=== PATIENT | female | born 1960 | race Caucasian/White ===

== ENCOUNTER 2024-02-22 14:24 | Outpatient (CLI) | payer OTHER, SELFPAY ==
[2024-02-22 18:47] LABS: Folic Acid 12.3 ng/mL (2.76->20)
[2024-02-24 20:43] LABS: Vitamin B6 7.7 ng/mL (2.1-21.7)
== END 2024-02-22 14:25 | disposition home or self-care (01) ==
LOC: ANHGOSHLAB 14:25
PROVIDERS: PCP Emergency Medicine; Visit Provider Nurse Practitioner Family
DX: F41.9 Anxiety disorder, unspecified (principal); R23.2 Flushing; R45.4 Irritability and anger
CPT/HCPCS: 36415; 82607; 82746; 84207

== ENCOUNTER 2024-05-13 08:22 | Outpatient (CLI) | payer OTHER, SELFPAY ==
[2024-05-13 20:47] LABS: Cholesterol 161 mg/dL (0-200); HDL Direct 49 mg/dL; Triglycerides 75 mg/dL (<150)
[2024-05-13 21:00] LABS: LDL Cholesterol Direct 79 mg/dL
--- OUTSIDE RECORDS SUMMARY | 2024-05-20 13:04 | XMS_ITS | Clinical Summary ---
Author Organization [facility] Address [address], [facility] [address] [place] [address] Phone Care Team Providers Care Security Operations Engineer Name Role Phone Micky Terry MD Primary Care Provider Adam English DO Unavailable Allergies Active Allergy Reactions Criticality Noted Date Comments Penicillins Unknown 02/06/2017 Medications venlafaxine (EFFEXOR XR) 150 MG CAPSULE SR 24 HR Take 150 mg by mouth daily. Active cetirizine (ZYRTEC ALLERGY) 10 MG Tablet Take 10 mg by mouth daily. Active Psyllium (METAMUCIL MULTIHEALTH FIBER PO) Take 4 Caps by mouth daily. Active Cholecalciferol (VITAMIN D3) 2000 UNIT Capsule Take by mouth. Active Calcium-Magnesiu m-Zinc 167-83-8 MG Tablet Take by mouth. Active Nutritional Supplements (ESTROVEN NIGHTTIME PO) Take by mouth. Active SUMAtriptan (IMITREX) 100 MG Tablet Take 100 mg by mouth daily as needed. Use as directed. May repeat dose in 2 hours if headache recurs. Active ALPRAZolam (XANAX) 0.25 MG Tablet Take 0.25 mg by mouth 3 times daily as needed. Active metroNIDAZOLE (FLAGYL) 500 MG Tablet Take 1 Tab by mouth 3 times daily. 30 Tab 9 Active Active Problems Problem Noted Date Diagnosed Date NAFLD (nonalcoholic fatty liver disease) 019 Diverticulitis 08/02/2018 Immunizations Immunization Administration Dates Next Due Covid-19, Mrna, Lnp-s, PF, 1 00 mcg/0.5 mL Dose (Moderna) 08/06/2020,07/10/2020 Family History Medical History Relation Name Comments Heart Disease Father Colon Cancer Mother Metastatic to L iver, Lungs and Brain. Hypertension Mother Relation Name Status Comments Father Mother Social History Tobacco Use Types Packs/Day Years Used Date Smoking Tobacco: Never Smokeless Tobacco: Never Alcohol Use Standard Drinks/Week Comments Yes 0 (1 standard drink = 0.6 oz pur e alcohol) Twice a year Comments Unknown Sex and Gender Information Value Date Recorded Sex Assigned at Not on file Legal Sex Female 11:40 PM CDT Gender Identity Not on file Sexual Orientation Not on file Last Filed Vital Signs Vital Sign Reading Time Taken Comments Blood Pressure 128/82 08/02/2018 4:00 PM CDT Pulse 76 08/02/2018 4:00 PM CDT Temperature 36.7 ??C (98 ??F) 08/02/2018 4:00 PM CDT Respiratory Rate 16 08/02/2018 4:00 PM CDT Oxygen Saturation 95% 08/02/2018 4:00 PM CDT Inhaled Oxygen Concentration - - Weight 126.5 kg (278 lb 12.8 oz) 08/02/2018 4:00 PM CDT Height 179.1 cm (5' 10.5 ) 08/02/2018 4:00 PM CD T Body Mass Index 39.44 08/02/2018 4:00 PM CDT Plan of Treatment Health Maintenance Due Date Last Done Comments DEXA Bone Density 1960 Hepatitis C Virus (HCV) Screening 1960 TdaP Immunization 1960 Cologuard 01/15/2008 Immunochemical Fecal Occult Blood 01/15/2008 Mammogram 01/15/2008 Pneumococcal Immunization (50+ years) (1 of 1 - PCV) 01/15/2008 Colonoscopy 10/04/2023 10/03/2018, 01/19/2017 Colorectal Cancer Screening 10/04/2023 Influenza Immunization (#1) 2024 02/21/2020 SARS-COV-2 Immunization ( season) 2024 11/06/2021, 04/16/2021, 08/06/2020, Additional history exists Respiratory Syncytial Virus (RSV) Immunization (Adult) (1 - 1-dose 75+ series) 2033 10/03/2018, 01/19/2017 Zoster Immunization Completed 12/05/2018, 9 Hepatitis B Immunization Aged Out No longer eligible based on patient's age to complete this topic Meningococcal Immunization (ACWY) Aged Out No longer eligible based on patient's age to complete this topic Rotavirus Immunization Aged Out No lo nger eligible based on patient's age to complete this topic Procedures Procedure Name Priority Date/Time Associated Diagnosis Comments COLONOSCOPY Routine 10/03/2018 from Last 3 Months or Most Recently Relevant to Health Maintenance Results * COLONOSCOPY (10/03/2018) Adam English DO PROCEDURE/MINOR SURGICAL ORDERA BLES Final Result from Last 3 Months or Most Recently Relevant to Health Maintenance Care Teams Security Operations Engineer Relationship Specialty Start Date End Date Micky Terry MD [address] [place] [address] PCP - General Family Medicine 01/19/17 Adam English DO [address] [place] [address] Consulting Physician Gastroenterology 01/19/17
--- OUTSIDE RECORDS SUMMARY | 2024-05-20 13:05 | XMS_ITS | Continuity of Care Document ---
Author Organization [facility] Address [address] [facility] [address] [place] [address] Phone Care Team Providers Care Softlines Supervisor Name Role Phone Da Lafleur MD Unavailable Unavailable Allergies, Adverse Reactions, Alerts Substance Reaction Status Criticality Penicillins Active No Information Penicillins Hives/Skin Rash Active No Informati on Medications Medication Instructions Dosage Effective Dates (start - stop) Status Comments DOXYCYCLINE HYCLATE 100 MG CAP TAKE ONE CAPSULE BY MOUTH EVERY DAY 100 MG - Active IMITREX 100 MG TABLET TAKE 1 TAB WITH FLUIDS AT ONSET OF MIGRAINE. REPEAT AFTER 2 HOURS IF NEEDED. MAX 2 TABS IN 24 HOURS - Active Diflucan 150 mg tablet take 1 tablet by oral route once then may repeat in 3 days if needed - Active Finacea 15 % topical gel apply by topical route every day a thin layer to the affected area(s) Not Available - Active Effexor XR 37.5 mg capsule,extended release take 1 capsule by oral route every day with food 37.5 MG - Active Flonase 50 mcg/actuation nasal spray,suspension spray 2 spray by intranasal route every day in each nostril - Active Bhanu 180 mg tablet take 1 tablet by oral route every day - Active metronidazole 0.75 % lotion apply by topical route 2 times every day a thin layer to the affected area(s) in the morning and evening 0.00 - Active doxycycline hyclate 100 mg capsule take 1 capsule by oral route 2 times every day 100 MG - Active Vitamin C 500 mg capsule,extended release Take 1 capsule po bid - Active Flexeril 10 mg tablet take 1 tablet by oral route 2 times every day - Active Aspirin Low Dose 81 mg tablet,delayed release take 1 tablet by oral route every day 81 MG - Active Estroven Nighttime 1,000 unit tablet - Active Metamucil 0.52 gram capsule take 4 daily - Active Vitamin D3 2,000 unit tablet - Active Procedures Procedure Date Depo Medrol 40 MG inj Office/outpatient visit,est, mod 2014 Office/outpatient visit,est, mod 2014 Oximetry Depo Medrol 80 MG inj Office/outpatient visit,est, mod 2014 Office/outpatient visit,est, mod 2014 Office/outpatient visit,est, mod 2014 Urinalysis, non-automated, w/o scope Jun Office/outpatient visit,est, mod 2013 Office/outpatient visit,est, mod 2013 Office/outpatient visit,est, mod 2013 Office/outpatient visit,est, mod 2013 Electrocardiogram, complete (ECG) Preventive checkup, est,40-64 yrs Preventive checkup, est,40-64 yrs Office/outpatient visit,est, mod 2012 Office/outpatient visit,est, mod 2012 Forms For Fmla Office/outpatient visit,est, mod 2012 Initial hospital care, moderate 013 Hospital discharge day care,30+ min Office/outpatient visit,est, mod 2012 OFFICE/OUTPATIENT VISIT, NEW Advance Directives Directive Yes / No Effective Date File Name No Information Encounters Encounter Description Practice Location Reason(s) For Visit Diagnoses Date Provider Providers Copied on Encounter [facility], [address] within [facility] [address], [place], [place], [id number], [place] tel:[phone] [facility] No Information 0 8 7 Miquel Da. [address] [facility], [address], [place], [place], [address], [place]. tel:[phone] [facility], [address] [facility] [address], [place], [place], [address], [place] tel:[phone] [facility] No Information 3 5 Miquel Roberson. [address] [facility], [address], [place], [place], [address], [place]. tel:[phone] [facility], [address] [facility], [place], [place], [address], [place] tel:[phone] [place] [address] No Information 2 4 5 No Information [facility], [address] [place] [address], [place], [place], [address], [place] tel:[phone] [place] [address] No Information 2 5- 5 Miquel Da. [address] [facility], [address], [place], [place], [address], [place]. tel:[phone] [facility], [address] [place] [address], [place], [place], [address], [place] tel:[phone] [place] [address] No Information 0-201 5 Miquel Da. [address] [facility], [address], [place], [place], [address], [place]. tel:[phone] Office/outpa tient visit,est, mod [facility], [address] [place] [address], [place], [place], [address], [place] tel:[phone] [facility] allergies (chief complaint) Allergic rhinitis, cause unspecified 5 Beba Huang. [address] [facility], [address], [place], [place], [address], [place]. tel:[phone] Referring Provider: Da Guillory, [address] [facility] [address], [place], [address] . tel:[phone] Office/outpa tient visit,[facility], [facility], [address] [facility] [address], [place], [place], [address], [place] tel:[phone] [facility] rosacea (chief complaint)anx iety (chief complaint)hea dache (chief complaint)merry k pain (chief complaint) MigraineROSA CEAGENERALIZ ED ANXIETY DISPVCs (premature ventricular contractions )BMI 38.0-38.9,AD ULT 5 Miquel Roberson. [address] [facility], [address], [place], [place], [address], [place]. tel:[phone] Referring Provider: Da Guillory, [address] [facility] Suite [facility], [place], [address] . tel:[phone] Office/outpa tient visit,[facility], [facility], [address] [facility], [place], [place], [address], [place] tel:[phone] [facility] back pain (chief complaint) Back painBMI 38.0-38.9,ad ult 5 No Information Referring Provider: Da Guillory, [address] [facility] Suite [facility], [place], [address] . tel:[phone] Office/outpa tient visit,[facility], [facility], [address] [facility] [address], [place], [place], [address], [place] tel:[phone] [facility] f/u meds (chief complaint)dep ression (chief complaint)hea dache (chief complaint)Ros acea (chief complaint) DYANA (generalized anxiety disorder)BMI 38.0-38.9,ad ultHeadache, migraineRosa cea 4 Miquel Roberson. [address] [facility], [address], [place], [place], [address], [place]. tel:[phone] Referring Provider: Da Guillory, [address] [facility] [address], [place], [address] . tel:[phone] Office/outpa tient visit,est, mod [facility], [address] [facility], [place], [place], [address], [place] tel:[phone] [facility] palpitations (chief complaint) GENERALIZED ANXIETY DISNAUSEA ALONETherape utic Drug Monitoring 4 No Information Preventive checkup, est,40-64 yrs [facility], [address] [place] [address], [place], [place], [address], [place] tel:[phone] [facility] preventive exam (chief complaint) Obesity, MorbidMenopa usal DisorderSK (seborrheic keratosis)Fa tereso history of colon cancer requiring screeningGyn ecological Examination 4 No Information Office/outpa tient visit,est, [facility], [address] [place] [address], [id number], [place] tel:[phone] [facility] 3 month f/u (chief complaint) Menopausal DisorderTher apeutic Drug MonitoringGE NERALIZED ANXIETY DISObesity, Morbid 3 No Information Office/outpa tient visit,est, mod [facility], [address] [place] [address], [place], [place], [address], [place] tel:[phone] [facility] migraine (chief complaint)men opausal disorder (chief complaint) MigrainesMen opausal disorderFami ly history of colon cancer 3 No Information [facility], [address], [place], [place], [address], [place] tel:[phone] [facility] No Information 3 No Information Office/outpa tient visit,est, mod [facility], [address], [place], [place], [address], [place] tel:[phone] [facility] F/U (chief complaint) S/P cholecystect omyReflux esophagitisD umping syndromeNaus eaTherapeuti c Drug Monitoring 3 No Information Initial hospital care, moderate [facility], [address] within [facility] [address], [place], [place], [address], [place] tel:[phone] [facility] No Information 3 No Information [facility], [address] [facility] [address], [place], [place], [address], [place] tel:[phone] No Information 3 Adolfo Pan. [address], [address], [place], [place], [address], [place]. tel:[phone] Office/outpa tient visit,est, [facility], [address] [facility] [place], [place], [address], [place] tel:[phone] [facility] Follow Up of back pain (chief complaint) OTHER BACK SYMPTOMSRout [facility] Medical ExamSCREEN [facility] erapeutic Drug Monitoring 3 No Information OFFICE/OUTPA TIENT VISIT, [facility], [address] [facility], [place], [place], [address], [place] tel:[phone] [facility] back spasms (chief complaint) Back muscle spasm 3 No Information Family History Family Member Type Diagnosis Age At Onset Mother Problem (finding) cancer of colon (Cause Of ) Mother Problem (finding) Problem (finding) Family history of Diabe chris mellitus Mother Problem (finding) osteoarthritis Mother Problem (finding) hypertension Problem (finding) Family history of strok e Problem (finding) Family history of High blood pressure Problem (finding) Family history of Heart disease Payers Payer name Insurance type Covered libertarian ID Authoriza tion(s) No Information Social History Type Description Quantity Date Captured Comments Sex Female Smoking Status No Information Chief Complaint And Reason For Visit No Information Reason For Referral Reason For Referral No Information Plan Of Treatment Date Type Action Status Referral Ordered: Referral: Gastroentergy. ordered History Of Present Illness Encounter Date Complaint History Of Prese nt Illness allergies The patient pres ents with burning in eyes, itchy ears, itchy eyes, post nasal drainage, reddened eyes, sneezing and watery eyes that began 1 Week Ago. Symptoms are constant, moderate and worsening. Symptoms are improved with allergy meds. The patient is also experiencing cough, post nasal drainage, reddened eyes, sneezing and tearing. Additional information: using bhanu /zyrtec/ benadryl. anxiety This is a follow up visit. There is improvement of initial symptoms. The patient reports functioning as not difficult at all. Additional information: Pt. is requesting refill on medication. headache The symptoms are intermittent. Additional information: Pt. is requesting for medication for migraines. back pain Additional infor mation: Pt. is requesting refill on medication for occassional back pain. back pain Onset: gradual w ith injury. The problem is worsening. Location of pain was lower back. The patient describes the pain as an ache. Context: bending forward and bending over. Symptoms are aggravated by movement. Symptoms are relieved by pain meds/drugs and alternating tylenol/aleve. Additional information: Was lifting and cleaning yesterday moving furniture and more than she usually does and felt a pull in her lower back. Lawrence a pull left to mid lower back, took a couple aleve and kept working and stiffening, ICE didn't help, tried the heating pad. depression The patient pres ents with anxious/fearful thoughts, depressed mood, diminished interest or pleasure and excessive worry but denies decreased need for sleep, fatigue or poor judgment. Interventions the patient has tried have not provided any relief. The depression is associated with weight gain. The patient denies any vomiting. 3 month f/u The symptoms beg an 3 months ago and generally lasts varies. pt is here for f/u on her hormones, states that she has been off of it for about 3 months now, states that she is doing ok, has some hot flashes sometimes still and sometimes has some anxiety but nothing else migraine Onset: 10 Years. The severity of the problem is moderate. The problem is improving. The symptoms are recurring. Locations affected include entire head. Denies aggravating factors. Denies relieving factors. Associated symptoms include blurred vision and nausea. Pertinent negatives include diplopia, dizziness, fever, hemianopsia left, hemianopsia right, loss of consciousness, memory loss, personality changes, phonophobia, photophobia, neck stiffness, vision loss left, vision loss right, visual aura, vertigo or vomiting. Additional information: Pt is here today for medication refill. Has been gradually reducing estradiol. 0.25mg nightly, doing well. Some hot flashes in the morning but has balanced out. Has some headaches. Most of the time takes Advil, but last week had a migraine relieved with Sumatriptan X 1. She only has one pill left. Migraine begins with pressure behind eyes and nose and pressure in her jaw. Wakes up with the headaches. menopausal disorder The symptoms are reported as being mild. The symptoms occur daily. She states the symptoms are well controlled. Pt has been weaning off her estradiol she is currently taking 0.25mg daily. She has been doing well, reports intermittent hot flashes in the morning but otherwise asymptomatic. Would like to figure out how to wean off medication from here. Hospital F/U The symptoms are reported as being moderate. Pt states she went to on 09/04/12 for nausea/vomitng/abdominal pain. She was dx with gall stones and inflamation. She is here today to f/u from [facility], she is doing much better with the pain, although she is till having some nausea. Follow Up of back pain Onset: 1 Month Ago. The problem is improving. It occurs persistently. Location of pain was lower back. Pain has radiated to the left thigh. The patient describes the pain as an ache, dull and sharp. Symptoms are aggravated by lying/rest and sitting. Symptoms are relieved by heat, over the counter medication: ibuprofen, physical therapy and stretching. Additional information: pt states she was here a month ago for this back pain and was referred to PT, states that she is here for a re-evaluation of her back, still going to PT twice a week and it is helping. Follow Up of back pain Onset: 1 Month Ago. The problem is improving. It occurs persistently. Location of pain was lower back. Pain has radiated to the left thigh. The patient describes the pain as an ache, dull and sharp. Symptoms are aggravated by lying/rest and sitting. Symptoms are relieved by heat, over the counter medication: ibuprofen, physical therapy and stretching. Additional information: pt states she was here a month ago for this back pain and was referred to PT, states that she is here for a re-evaluation of her back, still going to PT twice a week and it is helping. back spasms The symptoms beg an 1 day ago. Pt comes in c/o of back spasms that occured early this morning. States that this has happened in the past. Started with some lower back pain and slight muscle spasms about 2-3 weeks that is relieve with a heating pad and aleve. Today has not gotten any better. Functional Status Date Functional Assessmen t No Information Instructions Date Instruction Additional Infor mation No Information Assessments Type Assessment Date No Information Patient Care Teams Name Effective Dates (start - stop) Status Members No Information
--- OUTSIDE RECORDS SUMMARY | 2024-05-20 13:05 | XMS_ITS | Clinical Summary ---
Author Organization [facility] Address [address] [place] [address] Care Team Providers Care Motion Study Analyst Name Role Phone Odilon Chester MD Unavailable Roosevelt Thomas MD Unavailable [phone] Leticia Thorne METER SUPERVISOR Primary Care Provider [phone] Allergies Active Allergy Reactions Criticality Noted Date Comments Enoxaparin Hives,Itching,Redness,Swelling Medium 08/06 Droperidol Anxiety Low 03/26/2019 irritability Penicillins Swelling Medium 02/06/2017 Medications ALPRAZolam (XANAX) 0.25 mg tablet Take 1 tablet (0.25 mg total) by mouth 3 (three) times a day as needed for anxiety Active losartan-hydroCHLO ROthiazide (HYZAAR) 50-12.5 mg per tablet / tab am 10/15/19 21 Active SUMAtriptan (IMITREX) 100 mg tablet Active azelaic acid 15 % gel APPLY TOPICALLY TO THE AFFECTED AREA TWICE DAILY 11/19/19 23 Active budesonide-formote roL (SYMBICORT) 160-4.5 mcg/actuation inhalerIndications :Maintenance Therapy for Asthma Inhale 2 puffs 2 (two) times a day Rinse mouth with water after use. Do not swallow. 1 each 3 11/25/19 23 Active Additional Information Patient taking differently:2 puff inhalationAs needed, Rinse mouth with water after use. Do not swallow., Indications: Maintenance Therapy for Asthma, Reported on 02/28/2024 cholecalciferol (Vitamin D3) 2000 unit capsule 1 capsule (2,000 Units total) Active dicyclomine (BENTYL) 20 mg tabletIndications: Irritable Bowel Syndrome Take 1 tablet (20 mg total) by mouth 3 (three) times a day as needed (abdominal cramping and diarrhea) 90 tablet 11 08/24/19 24 025 Active ondansetron (ZOFRAN) 4 mg tablet Take 1 tablet (4 mg total) by mouth every 8 (eight) hours as needed for nausea or vomiting Active cyanocobalamin (Vitamin B-12) 1,000 mcg sublingual tablet Take 1 tablet (1,000 mcg total) by mouth daily Active tirzepatide, weight loss, (Zepbound) 2.5 mg/0.5 mL pen injectorIndication s:Metabolic dysfunction-associ ated steatohepatitis (MASH),Class 3 severe obesity with serious comorbidity and body mass index (BMI) of 40.0 to 44.9 in adult, unspecified obesity type (HCC) Inject 0.5 mL (2.5 mg total) under the skin once a week 2.5 mg once weekly for 4 weeks, then increase to 5 mg once weekly. May further increase dose in 2.5 mg/week increments every 4 weeks, if needed (maximum weekly dose: 15 mg/week) 10 mL 3 04/05/20 24 Active vitamin E (AQUASOL E) 400 unit capsuleIndications :Metabolic dysfunction-associ ated steatohepatitis (MASH) Take 2 capsules (800 Units total) by mouth daily 60 capsule 11 04/22/20 24 Active melatonin/soy/coho sh/calc carb (ESTROVEN NIGHTTIME, GREGORIO-MELTN, ORAL) 01/22/20 24 Active cholecalciferol (VITAMIN D-3) 2000 unit tablet Active meloxicam (MOBIC) 7.5 mg tablet Take 1 tablet (7.5 mg total) by mouth daily 04/29/20 24 Active omeprazole 20 mg tablet,delayed release (DR/EC) Take 1 tablet (20 mg total) by mouth daily Active omeprazole (PriLOSEC) 40 mg capsuleIndications :Gastroesophageal reflux disease, unspecified whether esophagitis present Take 1 capsule (40 mg total) by mouth 2 (two) times a day before breakfast and dinner 60 capsule 2 01/05/20 24 024 Discontin ued(Thera py completed ) Active Problems Problem Noted Date Diagnosed Date Elevated liver enzymes 03/11/2024 Assessment & Plan (03/11/2024 10:46 AM CDT): Patient with history of transaminitis dating back to 2021. Imaging findings consistent with hepatic steatosis. Serology workup was negative for other causes of chronic liver disease. I will obtain updated labs today. Due to enlarged abdominal girth, BMI 41.8, and limited visualization with ultrasound, patient to undergo MRI with elastography to evaluate degree of steatosis and fibrosis. I explained to patient that results will determine whether she should start pharmacologic therapy like a GLP-1 or rezdiffra. Referral to bonus clerk placed. We discussed the importance of weight loss, improving diet and increasing physical activity. We discussed the cause of increased hepatic fat, i.e., inadequate metabolism of fat delivered to the liver. When associated with elevated transaminases, this is metabolic dysfunction-associated steatohepatitis (MASH). This inflammation can lead to scar tissue or cirrhosis of the liver in approximately 30% of cases. Patients with cirrhosis are at risk for developing complications of portal hypertension, liver failure, , liver cancer, and/or the need for a liver transplant. Fat in the absence of elevated transaminases is non-alcoholic fatty liver disease. Routinely, this is not associated with inflammation or progressive hepatic fibrosis. The most effective treatment of fatty liver is weight loss, ideally achieved through a combination of caloric restriction and exercise. Aerobic exercise for 4 hours a week can accelerate fat metabolism and lead to improvement of liver tests. Weight loss of 5-10% of the current body weight usually leads to improvement in liver tests, liver inflammation, and a decrease in hepatic fibrosis. She will return to clinic in 1 year. Allergic rhinitis due to mold 02/28/2024 Seasonal allergic rhinitis due to pollen 024 Morbid obesity with body mass index (BMI) of 40. 0 to 49.9 12/29/2023 DON (obstructive sleep apnea) 07/03/2023 Dyspnea on exertion 06/06/2023 Gastritis without bleeding 04/27/2023 Gastric polyp 04/27/2023 Combined form of age-related cataract, both eyes 03/17/2023 Assessment & Plan (09/15/2023 9:32 AM CDT): Borderline VS OS>OD- patient is not bothered at this time. Assessment & Plan (03/17/2023 10:21 AM CDT): NVS, follow. Posterior vitreous detachment, both eyes 023 Assessment & Plan (01/31/2024 8:45 AM CDT): Worsening floaters OS then OD with a few flashes temporally OD recently. Attached 360 with good laser barricade around inferior tear OS. Gave strict return precautions- call if any new floaters, flashes, or curtain/veil over vision. Otherwise can follow with previously scheduled appointment. Assessment & Plan (09/15/2023 9:34 AM CDT): Gave strict return precautions- call if any new floaters, flashes, or curtain/veil over vision. Otherwise can follow with annual DFE. Assessment & Plan (03/17/2023 10:20 AM CDT): Exam reassuring today - PVD without holes/tears/breaks on dilated exam Return to [facility] in 6 months for DFE OU. Assessment & Plan (12/14/2022 2:16 PM CDT): Symptoms started 10/23/22. Exam reassuring today - PVD without holes/tears/breaks on INCOME AUDITOR 360 Return to [facility] 3 months for DFE OU. Assessment & Plan (11/02/2022 2:11 PM CDT): Symptoms started 10/23/22. Pt seen in ER with PVD, no holes Exam reassuring today - PVD without holes/tears/breaks Discussed natural course Return 1 month DFE OU Retinal tear of left eye 07/29/2022 Assessment & Plan (01/31/2024 8:45 AM CDT): S/p retinopexy 07/2022 Doing well. Well barricaded. Reviewed strict return precautions. Assessment & Plan (09/15/2023 9:32 AM CDT): S/p retinopexy 07/2022 Doing well. Well barricaded. Reviewed strict return precautions. Assessment & Plan (03/17/2023 10:21 AM CDT): S/p retinopexy 07/2022 Doing well. Well barricaded. Reviewed strict return precautions. Assessment & Plan (12/14/2022 2:16 PM CDT): S/p retinopexy 07/2022 Doing well. Well barricaded Assessment & Plan (11/02/2022 2:10 PM CDT): S/p retinopexy 07/2022 Doing well. Well barricaded Assessment & Plan (09/14/2022 2:32 PM CDT): 6 weeks s/p retinopexy - appears well barricaded Doing well, no new tears or detachments; tear well barricaded with laser RTC retina PRN, return to routine eyecare providers Return precautions discussed Assessment & Plan (08/03/2022 1:37 PM CDT): 1 week s/p retinopexy - appears well barricaded Doing well Return 1 month for DFE OS, sooner PRN. Return precautions discussed Assessment & Plan (07/29/2022 1:32 PM CDT): HST 5'clock left eye (OS). Discussed r/b/a of laser retinopexy and pt agrees to proceed. Tolerated procedure successfully. rtc 1 week at [facility] retina for repeat exam Assessment & Plan (07/29/2022 11:35 AM CDT): Symptoms started one day ago left eye (OS), no significant subretinal fluid (SRF). Tear at 5 o'clock left eye (OS). Educated on findings and typical treatment options. Will be seen same day with retina. Stressed importance of exam. Achilles tendinitis of left lower extremity 08/14 Diverticulitis 03/27/2019 Overview (03/27/2019): Added automatically from request for surgery [id number] NAFLD (nonalcoholic fatty liver disease) 019 Resolved Problems Problem Noted Date Diagnosed Date Resolved Date Abnormal CT scan 11/24/2022 06/06/2023 Encounters Date Type Department Care Team Description 05/02/2024 12:45 PM HOG STOMACH PREPARER Office Visit [facility] Gastroenterology [address] [facility] 2nd [address] [place] [address] Valerie Tripathi PA Gastric polyp (Primary Dx); Irritable bowel syndrome with diarrhea; Gastroesophageal reflux disease, unspecified whether esophagitis present; Hepatic steatosis 04/22/2024 8:53 AM HOG STOMACH PREPARER - 04/22/2024 11:59 PM HOG STOMACH PREPARER Hospital Encounter [facility] [address] [place] [id number] Screening mammogram, encounter for Discharge Disposition: Discharge to home or self care 04/22/2024 Telephone [facility] Gasteroenterology [address] [place] [address] Advanced Medicine 12th [place] [address] [place] [address] Betina Gage NP 04/18/2024 9:15 AM HOG STOMACH PREPARER Office Visit [facility] Orthopaedic Surgery [address] [facility] Medical Office Building [address] [place] [address] Miguel Bryson NP Achilles tendinitis of left lower extremity (Primary Dx) 04/05/2024 Telephone [facility] Gasteroenterology [address] [facility] Advanced Medicine 12th [place] [address] [place] [address] Betina Gage NP 04/03/2024 7:15 AM HOG STOMACH PREPARER - 04/03/2024 11:59 PM HOG STOMACH PREPARER Hospital Encounter [facility] [address] [place] [id number] NAFLD (nonalcoholic fatty liver disease) Discharge Disposition: Discharge to home or self care 03/25/2024 10:45 AM HOG STOMACH PREPARER Office Visit [facility] Orthopaedic Surgery [address] [place] [address] Pky Medical Office Building [address] [place] [phone] Miguel Bryson NP Left foot pain (Primary Dx); Left ankle pain, unspecified chronicity; Follow-up exam 03/25/2024 10:38 AM HOG STOMACH PREPARER - 03/25/2024 11:59 PM HOG STOMACH PREPARER Hospital Encounter [address] [phone] Left ankle pain, unspecified chronicity Discharge Disposition: Discharge to home or self care 03/25/2024 10:36 AM HOG STOMACH PREPARER - 03/25/2024 11:59 PM HOG STOMACH PREPARER Hospital Encounter [address] [phone] Left foot pain Discharge Disposition: Discharge to home or self care 03/11/2024 11:00 AM CDT Lab [facility] [address] [place] [address] NAFLD (nonalcoholic fatty liver disease); Encounter for screening for other viral diseases 03/11/2024 10:00 AM CDT Office Visit [facility] G[facility]enterology [facility] [address] [place] [address] Betina Gage NP NAFLD (nonalcoholic fatty liver disease) (Primary Dx); Encounter for screening for other viral diseases; Elevated liver enzymes 02/28/2024 8:30 AM CDT Office Visit [facility] Allergy and Immunology [facility] [address] [place] [address] Angela Merritt MD Seasonal allergic rhinitis due to pollen (Primary Dx); Dyspnea on exertion; Allergic rhinitis due to mold from Last 3 Months Immunizations Name Administration Dates Next Due COVID-19 MRNA (MODERNA) .5 M L (50 MCG) VACCINE (12 YEARS AND UP) 02/23/2023 Influenza, Quadrivalent, Rec ombinant, Egg Free, Preservative Free, Intramuscular 02/21/2020 Influenza, Quadrivalent, Spl it, Preservative Free, Intramuscular 02/18/2022 Influenza, Trivalent, Preservative Free, Intramu scular 02/08/2013 Influenza, Unspecified 02/13/2023 Pneumococcal Conjugate Pcv20 06/11/2023 RSV Vaccine, Pref, Recombina nt, Subunit, Adjuvanted, PF, IM (Arexvy) 06/16/2023 Tdap 06/11/2023 ZOSTER Recombinant 12/05/2018,09/28/2018 Surgical History Surgery Date Site/Laterality Comments COLONOSCOPY 10/03/2018 TONSILLECTOMY AND ADENOIDECTOMY 05/15/1962 - 05/14/1963 LAPAROSCOPIC OVARIAN CYSTECTOMY TONSILLECTOMY AND ADENOIDECTOMY 05/15/1961 - 05/14/1962 SINUS SURGERY 05/15/1984 - 05/14/1985 TERATOMA EXCISION 05/15/1995 - 05/14/1996 Left L SO SKIN CANCER EXCISION 05/15/1994 - 05/14/1995 Right V-Y flap R anglican for BCCa HYSTERECTOMY 05/15/1999 - 05/14/2000 TLH, R SO LESIONECTOMY 05/15/2009 - 05/14/2010 Right benign skin lesion removed from anterior chest COLECTOMY 04/18/2019 Laparoscopic sigmoid colectomy CHOLECYSTECTOMY 05/15/2012 - 05/14/2013 Medical History Medical History Date Comments Colorectal polyps Arthritis Right ankle and knee NAFLD (nonalcoholic fatty liver disease) Depression Anxiety Ovarian cyst Diverticulitis Rosacea Cholecystitis GERD (gastroesophageal reflux disease) Migraines 2001 Hypertension 2 years Family History Medical History Relation Name Comments Diverticulosis Brother Diverticulosis Father Abram Hickey Gallbladder disease Father Abram Hickey Heart attack Father Abram Hickey fatal day f ollowing [facility] Diabetes Maternal Grandmother Nancy Aparicio Folks Cancer Mother Trang Hickey. Colon Colon cancer Mother Trang Hickey. Colon Depression Mother Trang Hickey. Colon Gallbladder disease Mother Trang Hickey. Colon Hypertension Mother Trang Hickey. Colon Anesthesia problems Neg Hx Bleeding Disorder Neg Hx Clotting disorder Neg Hx Malig Hyperthermia Neg Hx Stroke Neg Hx Sudden Cardiac Neg Hx Relation Name Status Comments Brother Father Abram Hickey Maternal Grandmother Nancy Aparicio Folks Mother Trang Hickey. Colon Social History Tobacco Use Types Packs/Day Years Used Date Smoking Tobacco: Never Smokeless Tobacco: Never Tobacco Cessation:Counseling Given: Not Answered Alcohol Use Standard Drinks/Week Comments Not Currently 0 (1 standard drink = 0.6 oz pur e alcohol) AUDIT-C Answer Date Recorded Q1: How often do you have a drink containing alc ohol? Never 03/11/2024 Average Number of Drinks Not on file 024 Frequency of Binge Drinking Not on file 02/13 Personal Safety Answer Date Recorded Have you ever been in or are you currently in a harmful physical or emotional relationship or is someone making you feel afraid or unsafe? Denies 07/12/2023 Comments No Sex and Gender Information Value Date Recorded Sex Assigned at Not on file Legal Sex Female 2:22 AM HOG STOMACH PREPARER Gender Identity Female 05/18/2019 7:17 PM HOG STOMACH PREPARER Sexual Orientation Straight 05/18/2019 7: 17 PM HOG STOMACH PREPARER Obstetrics History Last Filed Vital Signs Vital Sign Reading Time Taken Comments Blood Pressure 126/84 05/02/2024 12:37 PM HOG STOMACH PREPARER Pulse 73 05/02/2024 12:37 PM HOG STOMACH PREPARER Temperature 36.8 ??C (98.3 ??F) 03/11/2024 9:59 AM CD T Respiratory Rate 20 02/28/2024 8:15 AM CDT Oxygen Saturation 99% 03/11/2024 9:59 AM CDT Inhaled Oxygen Concentration - - Weight 127 kg (280 lb) 05/02/2024 12:37 PM HOG STOMACH PREPARER Height 177.7 cm (5' 9.96 ) 05/02/2024 12:[address] Body Mass Index 40.22 05/02/2024 12:37 PM HOG STOMACH PREPARER Plan of Treatment Health Maintenance Due Date Last Done Comments Depression Screening 1960 Osteoporosis Screening-Bone Density Scan 01/27/2022 01/28/2020 Well Visit 65+ 2023 Covid-19 Vaccine (2023-06 5 season) 2024 02/23/2023, 11/06/2021, 04/16/2021, Additional history exists Influenza Vaccine (#1) 2024 , 02/18/2022, 02/21/2020, Additional history exists Fall Risk Assessment 07/12/2024 07/12/2023 Breast Cancer Screening-Mammogram 04/22/2025 04/22/2024, 04/20/2023, 04/15/2022, Additional history exists Colon Cancer Screening-Colonoscopy 01/04/2033 01/04/2023, 06/30/2010 DTaP/Tdap/Td Vaccine (2 - Td or Tdap) 06/11/2033 06/11/2023 Zoster Vaccine Completed 12/05/2018, 09/28/2018 Colon Cancer Screening-CT Colonography Discontinued 01/04/2023, 06/30/2010 Colon Cancer Screening-DNA Stool Discontinued 01/05/20, 06/30/2010 Colon Cancer Screening-FIT Discontinued 01/04/2023, Colon Cancer Screening-Sigmoidoscopy Discontinued 01/04/2023, 06/30/2010 Pneumococcal vaccine 65+ Completed 06/11/2023 Hepatitis B Screening Completed 11/27/2023 Hepatitis C Screening Completed 11/27/2023, 022 Procedures Procedure Name Priority Date/Time Associated Diagnosis Comments SCREENING MAMMOGRAM BILATERAL W LALO Schedule Routine, Read Routine (OP Routine) 04/22/2024 9:16 AM HOG STOMACH PREPARER Screening mammogram, encounter for MRI ABDOMEN W WO CONTRAST WITH MR ELASTOGRAPHY (C) Schedule Routine, Read Routine (OP Routine) 04/03/2024 8:41 AM HOG STOMACH PREPARER NAFLD (nonalcoholic fatty liver disease) XR FOOT LEFT 3 OR MORE VIEWS Schedule Routine, Read Routine (OP Routine) 03/25/2024 10:47 AM HOG STOMACH PREPARER Left foot pain XR ANKLE LEFT 3 OR MORE VIEWS Schedule Routine, Read Routine (OP Routine) 03/25/2024 10:46 AM HOG STOMACH PREPARER Left ankle pain, unspecified chronicity EGFR Routine 03/11/2024 11:02 AM CDT NAFLD (nonalcoholic fatty liver disease) DIFFERENTIAL AUTO Routine 03/11/2024 11: 02 AM CDT NAFLD (nonalcoholic fatty liver disease) COMPREHENSIVE METABOLIC PANEL Routine 03/11/2024 11:02 AM CDT NAFLD (nonalcoholic fatty liver disease) PROTIME-INR Routine 03/11/2024 11:02 AM CDT NAFLD (nonalcoholic fatty liver disease) CBC WITH AUTO DIFFERENTIAL Routine 03/11/2024 11:02 AM CDT NAFLD (nonalcoholic fatty liver disease) HEPATITIS A ANTIBODY, TOTAL Routine 03/11/2024 11:02 AM CDT NAFLD (nonalcoholic fatty liver disease) HEPATITIS B SURFACE ANTIBODY (IMMUNE STATUS) Routine 03/11/2024 11:02 AM CDT NAFLD (nonalcoholic fatty liver disease) Encounter for screening for other viral diseases SCAN - LABS 02/28/2024 HEPATITIS PANEL, ACUTE Routine 11/27/2023 8:39 AM CDT Elevated LFTs Hepatic steatosis COLONOSCOPY 01/04/2023 12:55 PM CDT DEXA AXIAL SKELETON BONE DENSITY 1 OR MORE SITES Schedule Routine, Read Routine (OP Routine) 01/28/2020 8:48 AM CDT Encounter for screening for osteoporosis from Last 3 Months or Most Recently Relevant to Health Maintenance Results * Screening Mammogram Bilateral W Lalo (04/22/2024 9:16 AM HOG STOMACH PREPARER) Anatomical Region Laterality Modality Breast Bilateral Mammography Narrative 04/22/2024 4:59 PM HOG STOMACH PREPARER Mammogram Technique: Bilateral Digital Breast Tomosynthesis, Bilateral C-view 2D Screening mammogram. ??Views obtained: ??bilateral craniocaudal and bilateral mediolateral oblique. ??Computer Aided Detection was performed. Mammogram Findings: The present examination has been compared to prior imaging studies performed at [facility] on 04/15/2022, 04/20/2023 and 05/05/2023. There are scattered areas of fibroglandular density. There is no suspicious abnormality in either breast. Impression: There is no mammographic evidence of malignancy. Clinical follow-up for diffuse bilateral breast pain is recommended. Annual screening mammography is recommended. OVERALL FINAL ASSESSMENT: BI-RADS CATEGORY 1: ??Negative. Procedure Note Gael Burr MD - 04/22/2024 Mammogram Technique: Bilateral Digital Breast Tomosynthesis, Bilateral C-view 2D Screening mammogram. Views obtained: bilateral craniocaudal and bilateral mediolateral oblique. Computer Aided Detection was performed. Mammogram Findings: The present examination has been compared to prior imaging studies performed at [facility] on 04/15/2022, 04/20/2023 and 05/05/2023. There are scattered areas of fibroglandular density. There is no suspicious abnormality in either breast. Impression: There is no mammographic evidence of malignancy. Clinical follow-up for diffuse bilateral breast pain is recommended. Annual screening mammography is recommended. OVERALL FINAL ASSESSMENT: BI-RADS CATEGORY 1: Negative. us Self Screening Mammogram IMG MAMMO PROCEDURES Fi nal Result * MRI Abdomen W WO Contrast With MR Elastography (C) (04/03/2024 8:41 AM HOG STOMACH PREPARER) Anatomical Region Laterality Modality Body N/A Magnetic Resonan ce 04/03/2024 10:5 9 AM HOG STOMACH PREPARER Impressions 04/03/2024 11:59 AM HOG STOMACH PREPARER 1. Mild hepatic steatosis. 2. Mean liver stiffness of 3.4 kilopascals (kPa). 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 The radiology attending physician has personally reviewed this study, and had reviewed and/or edited this written report and agrees with it. Electronically signed by: Darwin Salazar M.D. Narrative 04/03/2024 11:59 AM HOG STOMACH PREPARER EXAMINATION: 1. MAGNETIC RESONANCE IMAGING OF THE ABDOMEN WITH AND WITHOUT CONTRAST 2. MR LIVER ELASTOGRAPHY HISTORY: Hepatic steatosis TECHNIQUE: Magnetic resonance imaging of the abdomen was performed prior to and following the uneventful administration of intravenous Gadolinium contrast. MR elastography was performed using the Aniboom system. Protocol: Routine liver with elastography Contrast: gadoterate 20 mL COMPARISON: Right upper quadrant ultrasound 09/08/2023 FINDINGS: Liver: No surface nodularity. - Iron quantification: 1.6 mg iron / g liver - Fat fraction: 14% - Elastography: MR elastography was performed which demonstrated a mean liver stiffness of 3.4 kilopascals (kPa). This is consistent with stage 1-2 fibrosis (2.9-3.5 kPa) MR elastography estimates of hepatic stiffness (at 60 Hz) correlate with hepatic fibrosis stages as: < 2.5 kPa: Normal 2.5 - 2.9 kPa: Normal or inflammation 2.9 - 3.5 kPa: Stage 1 to 2 fibrosis 3.5 - 4 kPa: Stage 2-3 fibrosis 4 ??- 5 kPa: Stage 3-4 fibrosis > 5 kPa: Stage 4 fibrosis or cirrhosis These are broad categories and results should be interpreted with clinical and laboratory findings for other possible causes of increased liver stiffness. (Rosendo S, Silvestre R. Magnetic resonance elastography of the liver. Magn Reson Imaging Clin N Am 2014; 22: 433-46). - Bile ducts: Mild extrahepatic biliary ductal dilatation, favored represent reservoir effect post cholecystectomy. - Focal liver lesions: No suspicious focal hepatic lesion. Focus of increased signal on T2 and diffusion weighting imaging appears to represent wrap artifact marker on patient skin. - Vasculature: Replaced left hepatic artery arising from the left gastric. Patent portal and hepatic veins. Gallbladder: Surgically absent Pancreas: Normal Spleen: Normal Adrenals: Normal Kidneys: Left upper pole renal cyst. No hydronephrosis. Other Findings: Imaged lung bases are clear. No abdominal lymphadenopathy. No suspicious osseous lesion. Procedure Note Darwin Salazar MD - 04/03/2024 EXAMINATION: 1. MAGNETIC RESONANCE IMAGING OF THE ABDOMEN WITH AND WITHOUT CONTRAST 2. MR LIVER ELASTOGRAPHY HISTORY: Hepatic steatosis TECHNIQUE: Magnetic resonance imaging of the abdomen was performed prior to and following the uneventful administration of intravenous Gadolinium contrast. MR elastography was performed using the Aniboom system. Protocol: Routine liver with elastography Contrast: gadoterate 20 mL COMPARISON: Right upper quadrant ultrasound 09/08/2023 FINDINGS: Liver: No surface nodularity. - Iron quantification: 1.6 mg iron / g liver - Fat fraction: 14% - Elastography: MR elastography was performed which demonstrated a mean liver stiffness of 3.4 kilopascals (kPa). This is consistent with stage 1-2 fibrosis (2.9-3.5 kPa) MR elastography estimates of hepatic stiffness (at 60 Hz) correlate with hepatic fibrosis stages as: < 2.5 kPa: Normal 2.5 - 2.9 kPa: Normal or inflammation 2.9 - 3.5 kPa: Stage 1 to 2 fibrosis 3.5 - 4 kPa: Stage 2-3 fibrosis 4 - 5 kPa: Stage 3-4 fibrosis > 5 kPa: Stage 4 fibrosis or cirrhosis These are broad categories and results should be interpreted with clinical and laboratory findings for other possible causes of increased liver stiffness. (Rosendo S, Silvestre R. Magnetic resonance elastography of the liver. Magn Reson Imaging Clin N Am 2014; 22: 433-46). - Bile ducts: Mild extrahepatic biliary ductal dilatation, favored represent reservoir effect post cholecystectomy. - Focal liver lesions: No suspicious focal hepatic lesion. Focus of increased signal on T2 and diffusion weighting imaging appears to represent wrap artifact marker on patient skin. - Vasculature: Replaced left hepatic artery arising from the left gastric. Patent portal and hepatic veins. Gallbladder: Surgically absent Pancreas: Normal Spleen: Normal Adrenals: Normal Kidneys: Left upper pole renal cyst. No hydronephrosis. Other Findings: Imaged lung bases are clear. No abdominal lymphadenopathy. No suspicious osseous lesion. IMPRESSION: 1. Mild hepatic steatosis. 2. Mean liver stiffness of 3.4 kilopascals (kPa). 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 The radiology attending physician has personally reviewed this study, and had reviewed and/or edited this written report and agrees with it. Electronically signed by: Darwin Salazar M.D. Betina Gage NP IM MRI PROCEDURES Final Result * XR Foot Left 3 or More Views (03/25/2024 10:47 AM HOG STOMACH PREPARER) Anatomical Region Laterality Modality Lower Extremities, Foot Left Digital Radiography 03/25/2024 11:5 7 AM HOG STOMACH PREPARER Impressions 03/25/2024 11:57 AM HOG STOMACH PREPARER There are extensive enthesopathic changes along the insertional Achilles likely related to severe chronic Achilles tendinopathy. ??Ankle mortise is preserved. ??Ossification inferior to the medial malleolus is probably sequela of prior injury. ??There is increased soft tissue around the ankle similar to before possibly related to body habitus. ??There is a moderate-sized plantar calcaneal spur and mild osteoarthritis of the midfoot. ??No acute fracture of the ankle or foot. ??Subtle lucency 6.5mm along the far medial aspect of the talar dome could be related to the patient's osteochondral defect. Mild osteoarthritis of the 1st metatarsophalangeal joint. ??Lucency through the 2nd metatarsal head may represent posttreatment change or surgical change. ??Correlate clinically. ??Follow up. Electronically signed by: Bina Bird M.D. Narrative 03/25/2024 11:57 AM HOG STOMACH PREPARER EXAMINATION: 1. ??3 VIEWS OF THE LEFT FOOT 2. ??3 VIEWS OF THE LEFT ANKLE DATE: 03/25/2024 11:15 AM COMPARISON: 09/21/2023 and priors dating back to 05/05/2021 HISTORY: left ankle pain - WB chronic pain Procedure Note Bina Bird MD - 03/25/2024 EXAMINATION: 1. 3 VIEWS OF THE LEFT FOOT 2. 3 VIEWS OF THE LEFT ANKLE DATE: 03/25/2024 11:15 AM COMPARISON: 09/21/2023 and priors dating back to 05/05/2021 HISTORY: left ankle pain - WB chronic pain IMPRESSION: There are extensive enthesopathic changes along the insertional Achilles likely related to severe chronic Achilles tendinopathy. Ankle mortise is preserved. Ossification inferior to the medial malleolus is probably sequela of prior injury. There is increased soft tissue around the ankle similar to before possibly related to body habitus. There is a moderate-sized plantar calcaneal spur and mild osteoarthritis of the midfoot. No acute fracture of the ankle or foot. Subtle lucency 6.5mm along the far medial aspect of the talar dome could be related to the patient's osteochondral defect. Mild osteoarthritis of the 1st metatarsophalangeal joint. Lucency through the 2nd metatarsal head may represent posttreatment change or surgical change. Correlate clinically. Follow up. Electronically signed by: Bina Bird M.D. us Miguel Bryson METER SUPERVISOR IMG XR PROCEDURES Final Re sult * XR Ankle Left 3 or More Views (03/25/2024 10:46 AM HOG STOMACH PREPARER) Anatomical Region Laterality Modality Lower Extremities, Ankle Left Digital Radiography 03/25/2024 11:5 7 AM HOG STOMACH PREPARER Impressions 03/25/2024 11:57 AM HOG STOMACH PREPARER There are extensive enthesopathic changes along the insertional Achilles likely related to severe chronic Achilles tendinopathy. ??Ankle mortise is preserved. ??Ossification inferior to the medial malleolus is probably sequela of prior injury. ??There is increased soft tissue around the ankle similar to before possibly related to body habitus. ??There is a moderate-sized plantar calcaneal spur and mild osteoarthritis of the midfoot. ??No acute fracture of the ankle or foot. ??Subtle lucency 6.5mm along the far medial aspect of the talar dome could be related to the patient's osteochondral defect. Mild osteoarthritis of the 1st metatarsophalangeal joint. ??Lucency through the 2nd metatarsal head may represent posttreatment change or surgical change. ??Correlate clinically. ??Follow up. Electronically signed by: Bina Bird M.D. Narrative 03/25/2024 11:57 AM HOG STOMACH PREPARER EXAMINATION: 1. ??3 VIEWS OF THE LEFT FOOT 2. ??3 VIEWS OF THE LEFT ANKLE DATE: 03/25/2024 11:15 AM COMPARISON: 09/21/2023 and priors dating back to 05/05/2021 HISTORY: left ankle pain - WB chronic pain Procedure Note Bina Bird MD - 03/25/2024 EXAMINATION: 1. 3 VIEWS OF THE LEFT FOOT 2. 3 VIEWS OF THE LEFT ANKLE DATE: 03/25/2024 11:15 AM COMPARISON: 09/21/2023 and priors dating back to 05/05/2021 HISTORY: left ankle pain - WB chronic pain IMPRESSION: There are extensive enthesopathic changes along the insertional Achilles likely related to severe chronic Achilles tendinopathy. Ankle mortise is preserved. Ossification inferior to the medial malleolus is probably sequela of prior injury. There is increased soft tissue around the ankle similar to before possibly related to body habitus. There is a moderate-sized plantar calcaneal spur and mild osteoarthritis of the midfoot. No acute fracture of the ankle or foot. Subtle lucency 6.5mm along the far medial aspect of the talar dome could be related to the patient's osteochondral defect. Mild osteoarthritis of the 1st metatarsophalangeal joint. Lucency through the 2nd metatarsal head may represent posttreatment change or surgical change. Correlate clinically. Follow up. Electronically signed by: Bina Bird M.D. us Miguel Bryson METER SUPERVISOR IMG XR PROCEDURES Final Re sult * eGFR (03/11/2024 11:02 AM CDT) eGFR 81 >=60 mL/min/1. 73 m2 Comment: Interpretive Data Reference Interval Normal ?>/= 90 mL/min/1.73m2 Mildly decreased* ? 60 - 89 mL/min/1.73m2 Mildly to moderately decreased ?45 - 59 mL/min/1.73m2 Moderately to severely decreased ??30 - 44 mL/min/1.73m2 Severely decreased ?15 - 29 mL/min/1.73m2 Kidney Failure ?< 15 ??mL/min/1.73m2 *Relative to young adult level Estimated glomerular filtration rate is determined by the 2020 CKD-EPI equation recommended by the National Kidney Foundation (A Unifying Approach to GFR Estimation: Recommendations of the NKF-ASK Task Force on Reassessing the Inclusion of Race in Diagnosing Kidney Disease, JASN 2020). The CKD-EPI equation should not be used for patients with unstable renal function and has not been validated in children and those over 70. Current interpretive data was last reviewed 2021. Blood 03/11/2024 11:0 2 AM CDT 03/11/2024 11:20 AM CDT Betina Gage NP LAB BLOOD ORDERABLES Fin al Result BRITTANY BOYLE [address] [facility]. [place] [address] * Differential, auto (03/11/2024 11:02 AM CDT) Neutrophil abs 2.9 1.5 - 6.5 K/cumm Imm gran abs 0.0 0.0 - 0.1 K/cumm [facility] Lymphocyte abs 2.8 0.8 - 3.3 K/cumm [facility] Monocyte abs 0.5 0.2 - 0.8 K/cumm [facility] Eosinophil abs 0.1 0.0 - 0.5 K/cumm [facility] Basophil abs 0.1 0.0 - 0.1 K/cumm [facility] Neutrophil pct 45.4 % [facility] Comment: Interpretive Data Percent cell count reference ranges are not reported, since discordance with absolute values may lead to misinterpretation of CBC data. Current Interpretive Data was last revised on 2017. Imm gran pct 0.3 % [facility] Comment: Interpretive Data Percent cell count reference ranges are not reported, since discordance with absolute values may lead to misinterpretation of CBC data. Current Interpretive Data was last revised on 2017. Lymphocyte pct 44.0 % [facility] Comment: Interpretive Data Percent cell count reference ranges are not reported, since discordance with absolute values may lead to misinterpretation of CBC data. Current Interpretive Data was last revised on 2017. Monocyte pct 7.7 % [facility] Comment: Interpretive Data Percent cell count reference ranges are not reported, since discordance with absolute values may lead to misinterpretation of CBC data. Current Interpretive Data was last revised on 2017. Eosinophil pct 1.8 % [facility] Comment: Interpretive Data Percent cell count reference ranges are not reported, since discordance with absolute values may lead to misinterpretation of CBC data. Current Interpretive Data was last revised on 2017. Basophil pct 0.8 % [facility] Comment: Interpretive Data Percent cell count reference ranges are not reported, since discordance with absolute values may lead to misinterpretation of CBC data. Current Interpretive Data was last revised on 2017. Blood 03/11/2024 11:0 2 AM CDT 03/11/2024 11:20 AM CDT Betina Gage NP LAB BLOOD ORDERABLES Fin al Result Performing Organization Address City/[facility]/ZIP Co de Phone Number BRITTANY FARRIS [address] [address] [facility] [place] [address] * CBC with auto differential (03/11/2024 11:02 AM CDT) WBC 6.3 3.8 - 9.9 K/cumm Hgb 14.1 11.9 - 15.5 g/dL [facility] W Hct 41.1 35.6 - 45.5 % [facility] WCH Plt 259 150 - 400 K/cumm [facility] MPV 10.7 9.1 - 12.3 fL [facility] RBC 4.54 3.90 - 5.20 M/cumm [facility] MCV 90.5 81.3 - 96.4 fL [facility] MCH 31.1 27.1 - 33.3 pg [facility] WCH MCHC 34.3 32.3 - 35.7 g/dL [facility] BJWCH RDW CV 13.4 11.1 - 14.9 % [facility] RDW SD 43.8 35.7 - 48.1 fL [facility] NRBC abs 0.00 0.00 - 0.01 K/cumm [facility] Blood 03/11/2024 11:0 2 AM CDT 03/11/2024 11:20 AM CDT Betina Gage METER SUPERVISOR LAB BLOOD ORDERABLES Fin al Result Performing Organization Address [facility]/ZIP Co de Phone Number BRITTANY FARRIS [address] [facility] [employer] [place], [place] [id number] * Hepatitis A antibody, total Blood (03/11/2024 11:02 AM CDT) [facility] Hep A total Nonreactive Nonreactive Comment:Testing performed by : [facility], [address] [place]., [address] Blood 03/11/2024 11:0 2 AM CDT 03/11/2024 1:16 PM CDT Betina Gage NP LAB MICROBIOLOGY - GENER AL ORDERABLES Final Result Performing Organization Address [facility] Co de Phone Number BR[facility]ANY [facility] [address] [facility] [email or web address] [place], [place] [phone] * Hepatitis B surface antibody (immune status) Blood (03/11/2024 11:02 AM CDT) [facility] HBsAb (immune status) Reactive Comment: This result is consistent with immunity to Hepatitis B Virus when used in the setting of routine screening. Current interpretive data was last revised on 22 Testing performed by: [facility], [address] [place]., [address] HBsAb (immune status) index 15.0 mIUnits/m L BRITTANY FARRIS Comment:Testing performed by : [facility], [address] [place]., [address] Blood 03/11/2024 11:0 2 AM CDT 03/11/2024 1:16 PM CDT Betina Gage NP LAB MICROBIOLOGY - GENER AL ORDERABLES Final Result Performing Organization Address [facility] Co de Phone Number [facility] [address] [address] [facility] [employer] [place], [place] [id number] * Protime-INR (03/11/2024 11:02 AM CDT) [facility] PT 11.4 9.7 - 13.0 sec INR 1.05 0.90 - 1.20 BRITTANY FARRIS Comment: Interpretive data Oral anticoagulant therapeutic ranges: Venous thromboembolism prophylaxis or treatment: 2.0-3.0 CARDIOLOGY Standard range: 2.0-3.0 High-intensity range: 2.5-3.5 Refer to indication-specific guidelines for appropriate target ranges for prosthetic heart valve replacement. Current interpretive data was last revised on 2019. Blood 03/11/2024 11:0 2 AM CDT 03/11/2024 11:20 AM CDT Betina Gage NP LAB BLOOD ORDERABLES [facility] al Result [facility] [address] [facility]. [place] [address] * (ABNORMAL) Comprehensive metabolic panel (03/11/2024 11:02 AM CDT) Sodium 139 135 - 145 mmol/L Potassium, pl 4.0 3.3 - 4.9 mmol/L [facility] Chloride 102 97 - 110 mmol/L [facility] CO2 27 22 - 32 mmol/L [facility] Anion gap 10 2 - 15 mmol/L [facility] BUN 17 6 - 25 mg/dL [facility] Creatinine 0.80 0.60 - 1.10 mg/dL [facility] Glucose 111 70 - 199 mg/dL [facility] Comment: Interpretive Data Fasting glucose >/= 126 mg/dl is diagnostic for diabetes. ?? Fasting is defined as no caloric intake for at least 8 hours. Fasting glucose between 100 mg/dl to 125 mg/dl is diagnostic of prediabetes. In a patient with classic symptoms of hyperglycemia or hyperglycemic crisis, a random glucose >/= 200 mg/dl is diagnostic for diabetes. In the absence of unequivocal hyperglycemia, results should be confirmed by repeat testing. The classification and Diagnosis of Diabetes Diabetes Care 2022; 46: S19-S40. Current interpretive data was last revised 2022. Calcium 9.7 8.5 - 10.3 mg/dL [facility] Bilirubin, total 0.4 0.1 - 1.2 mg/dL [facility] Protein, pl 7.4 6.5 - 8.5 g/dL [facility] Albumin 4.3 3.5 - 5.0 g/dL [facility] Alk phos 50 40 - 130 Units/L [facility] ALT 68(H) 7 - 45 Units/L [facility] AST 59(H) 10 - 45 Units/L [facility] Blood 03/11/2024 11:0 2 AM CDT 03/11/2024 11:20 AM CDT Betina Gage METER SUPERVISOR LAB BLOOD ORDERABLES Fin al Result BRITTANY BOYLE [address] [facility] [address] * SCAN - LABS (02/28/2024) Provider Scanning Edited Result - Final * Hepatitis panel, acute Blood (11/27/2023 8:39 AM CDT) Hep A IgM Nonreactive Nonreactive Comment: Interpretive Data: If Hep A IgM Ab is reported as Equivocal, a new sample should be drawn in two weeks for testing. Current interpretive data was last revised on 19. Hep B core IgM Nonreactive Nonreactive [facility] Comment: Interpretive Data If HepB Core IgM Ab is reported as Equivocal, a new sample should be drawn in two weeks for testing. Current interpretive data was last revised on 19. Hep C Ab Nonreactive Nonreactive [facility] Comment: Interpretive Data Nonreactive: Antibodies to HCV not detected. Does NOT exclude the possibility of recent exposure to HCV. Equivocal: Equivocal for HCV antibodies. Supplemental molecular testing will be automatically performed to determine infection status in accordance with current CDC screening recommendations. ?? Reactive: Positive for HCV antibodies. ??This may represent current or past HCV infection. Supplemental molecular testing will be automatically performed to determine ??current infection status in accordance with current CDC screening recommendations. Interpretive data was last revised on 2019. HepBsAg Nonreactive Nonreactive [facility] Blood 11/27/2023 8:39 AM CDT 11/27/2023 2:38 PM CDT us Cathi GERONIMO LAB MICROBIOLOGY - GENE RAL ORDERABLES Final Result BRITTANY RIVERA [address] [place] [address] * COLONOSCOPY (01/04/2023 12:55 PM CDT) Anatomical Region Laterality Modality Other Narrative Procedure Note Odilon Chester MD - 01/04/2023 12:55 PM CDT ENDOSCOPY LAB Patient Name: Josy Fiore Procedure Date: 01/04/2023 12:55 PM Date of : 1960 Admit Type: Outpatient Age: 62 Gender: Female Attending MD: Odilon Chester M.D. Room: [facility] ENDOSCOPY ROOM 03 Note Status: Finalized Procedure: Colonoscopy Indications: Screening for colorectal malignant neoplasm, Last colonoscopy: 2019 Providers: Odilon Chester M.D. Referring MD: Bj Montaño M.D. Medicines: Monitored Anesthesia Care Complications: No immediate complications. Estimated Blood Loss: Estimated blood loss was minimal. Procedure: Pre-Anesthesia Assessment: - Prior to the procedure, a History and Physicalwas performed, and patient medications, allergies and sensitivities were reviewed. The patient'stolerance of previous anesthesia was reviewed. - The risks and benefits of the procedure and the sedation options and risks were discussed with the patient. All questions were answered and informed consent was obtained. - Immediately prior to administration ofmedications, the patient was re-assessed for adequacy to receive sedatives. The benefits, risks and alternatives of theprocedure and sedation were discussed and informed consentwas obtained. All questions were answered. Please referto the signed informed consent document in the medical record. The scope was passed under direct vision.The [id number] was introduced through the anusand advanced to the terminal ileum. The colonoscopy was performed without difficulty. The patient tolerated the procedure well. The quality of the bowel preparation was evaluated using the BBPS (BostonBowel Preparation Scale) with scores of: Right Colon = 3, Transverse Colon = 3 and Left Colon = 3 (entiremucosa seen well with no residual staining, smallfragments of stool or opaque liquid). The total BBPS score equals 9. Findings: The terminal ileum appeared normal. Two sessile polyps were found in the ascending colon. The polyps were6 to 8 mm in size. These polyps were removed with a cold snare.Resection and retrieval were complete. A 4 mm polyp was found in the transverse colon. The polyp wassessile. The polyp was removed with a cold snare. Resection and retrieval were complete. Two sessile polyps were found in the descending colon. The polypswere 5 to 6 mm in size. These polyps were removed with a cold snare.Resection and retrieval were complete. A few diverticula were found in the descending colon. There was evidence of a prior end-to-end colo-rectal anastomosis inthe recto-sigmoid colon. This was patent and was characterized by healthy appearing mucosa. External and internal hemorrhoids were found. The hemorrhoids weresmall. Impression: - The examined portion of the ileum was normal. - Two 6 to 8 mm polyps in the ascending colon,removed with a cold snare. Resected and retrieved. - One 4 mm polyp in the transverse colon, removedwith a cold snare. Resected and retrieved. - Two 5 to 6 mm polyps in the descending colon, removed with a cold snare. Resected andretrieved. - Diverticulosis in the descending colon. - Patent end-to-end colo-rectal anastomosis, characterized by healthy appearing mucosa. - External and internal hemorrhoids. Recommendation: - Await pathology results. - Repeat colonoscopy in 3 years for surveillance. - Contact Information: During normal business hours - Please call theNurse Coordinator: [phone] After hours, evening, nights, weekends and holidays- Please call the hospital sewage screen operator at and ask for the GI fellow loss prevention specialist. Attending Participation: I personally performed the entire procedure. Electronically signed by Odilon Chester MD Odilon Chester M.D. 01/04/2023 1:25:11 PM Number of Addenda: 0 Note Initiated On: 01/04/2023 12:55 PM Odilon Chester MD ENDOSCOPY PROCEDURES Final Result * Dexa Axial Skeleton Bone Density 1 or 2 Site (01/28/2020 8:48 AM CDT) Anatomical Region Laterality Modality Body N/A Digital Radiogra phy 01/28/2020 9:04 AM CDT Impressions 01/28/2020 10:17 AM CDT ?? 1. The bone mineral density of the lumbar spine is normal. ?? 2. The bone mineral density of the left femoral neck is normal. ?? 3. The bone mineral density of the left total hip is normal. ?? 4. Overall, the above findings are normal by WHO criteria. 5. Calculation of fracture risk using the FRAX model is not appropriate in certain settings. ??It was not performed in this patient because the patient met the following condition(s): ??normal bone density. General comments regarding interpretation of bone density measurements: ? A) ??In children, premenopausal woman and males under age 50 not at increased risk for fractures only Z-scores, not T-scores are used to indicate risk. ??A Z-score above -2.0 is defined as within the expected range for age and Z-score at or less than -2.0 is below the expected range for age . ??A Z-score below the expected range for age in a patient with recent fractures and/or chronic corticosteroid treatment is consistent with a diagnosis of osteoporosis. ? B) ??In post menopausal women and males over 50, comparison of the measured bone mineral density with the average value in young normal subjects (the T-score ) has been found to be useful in assessing fracture risk. ??Fracture risk approximately doubles for each 1.0 standard deviation (SD) in individual's hip or spine bone mineral density is below the average value of young normal subjects. ??The World Health Organization (WHO) has defined T-scores of -1.0 to -2.5 as diagnostic of low bone mass (OSTEOPENIA), and T-scores of -2.5 or lower to be diagnostic of OSTEOPOROSIS, based on the site of lowest bone density. ? Note that there will be a change in reporting format and reference databases as patients move from the younger population (group A) to the older population (group B) The National Osteoporosis Foundation (www.nof.org) recommends adequate intake of calcium and vitamin D and regular weight-bearing exercise in all patients. ??They recommend pharmacologic treatment in postmenopausal women and men age 50 and older presenting with any of the following: ? 1) ? Osteoporosis, after appropriate evaluation to exclude secondary causes. ? 2) ? A hip or vertebral (clinical or radiographic) fracture, regardless of the bone density. ? 3) ? Low bone mass (Osteopenia) and one or more of: other prior fractures, secondary causes associated with high risk of fracture (such as glucocorticoid use or total immobilization), or computed high risk of fracture (10-yr probability of hip fracture >= 3% or a 10-yr probability of any major osteoporosis-related fracture >= 20% based on the [place].-adapted WHO algorithm), available at http://www.shef.ac.uk/FRAX). ?? Dictated by: Edgar Lara M.D. The radiology attending physician has personally reviewed this study, and had reviewed and/or edited this written report and agrees with it. Electronically signed by: Heri Harmon M.D. Narrative 01/28/2020 10:17 AM CDT BONE DENSITOMETRY OF THE SPINE AND HIP ?? DATE OF STUDY: ??01/28/2020 ?? HISTORY: ??60-year-old postmenopausal woman with hysterectomy, oophorectomy at age 40. ??She is being treated with vitamin D and calcium supplementation. ??Evaluate bone mineral density. ?? Additional risk factors for fracture: Partial bowel resection, early menopause. ?? FINDINGS (SPINE): The bone mineral density of L1-L4 was assessed by dual-energy x-ray absorptiometry. The average bone mineral density within this region is 1.195 gm/sq-cm. This is 2.9 standard deviations above the mean of the average bone mineral density for age- and gender-matched subjects (the Z-score). It is 1.3 standard deviations above the mean peak bone mineral density in young adults (the T-score). ?? FINDINGS (FEMORAL NECK): The bone mineral density of the left femoral neck was assessed by dual-energy x-ray absorptiometry. The average bone mineral density within the femoral neck region is 0.898 gm/sq-cm. This is 1.8 standard deviations above the mean of the average bone mineral density for age- and gender-matched subjects (the Z-score). It is 0.4 standard deviations above the mean peak bone mineral density in young adults (the T-score). ?? FINDINGS (TOTAL HIP): The bone mineral density of the left hip was assessed by dual-energy x-ray absorptiometry. The average bone mineral density within the total hip region is 1.137 gm/sq-cm. This is 2.7 standard deviations above the mean of the average bone mineral density for age- and gender-matched subjects (the Z-score). It is 1.6 standard deviations above the mean peak bone mineral density in young adults (the T-score). ?? SUMMARY OF CURRENT RESULTS: Region ? BMD ?T-score ??Z-score ?? AP Spine (L1-L4) ? 1.195 ?1.3 ?2.9 ? Femoral Neck (Left) ?0.898 ?0.4 ?1.8 ? Total Hip (Left) ? 1.137 ?1.6 ?2.7 ? Procedure Note Heri Gandara MD - 01/28/2020 BONE DENSITOMETRY OF THE SPINE AND HIP DATE OF STUDY: 01/28/2020 HISTORY: 60-year-old postmenopausal woman with hysterectomy, oophorectomy at age 40. She is being treated with vitamin D and calcium supplementation. Evaluate bone mineral density. Additional risk factors for fracture: Partial bowel resection, early menopause. FINDINGS (SPINE): The bone mineral density of L1-L4 was assessed by dual-energy x-ray absorptiometry. The average bone mineral density within this region is 1.195 gm/sq-cm. This is 2.9 standard deviations above the mean of the average bone mineral density for age- and gender-matched subjects (the Z-score). It is 1.3 standard deviations above the mean peak bone mineral density in young adults (the T-score). FINDINGS (FEMORAL NECK): The bone mineral density of the left femoral neck was assessed by dual-energy x-ray absorptiometry. The average bone mineral density within the femoral neck region is 0.898 gm/sq-cm. This is 1.8 standard deviations above the mean of the average bone mineral density for age- and gender-matched subjects (the Z-score). It is 0.4 standard deviations above the mean peak bone mineral density in young adults (the T-score). FINDINGS (TOTAL HIP): The bone mineral density of the left hip was assessed by dual-energy x-ray absorptiometry. The average bone mineral density within the total hip region is 1.137 gm/sq-cm. This is 2.7 standard deviations above the mean of the average bone mineral density for age- and gender-matched subjects (the Z-score). It is 1.6 standard deviations above the mean peak bone mineral density in young adults (the T-score). SUMMARY OF CURRENT RESULTS: Region BMD T-score Z-score AP Spine (L1-L4) 1.195 1.3 2.9 Femoral Neck (Left) 0.898 0.4 1.8 Total Hip (Left) 1.137 1.6 2.7 IMPRESSION: 1. The bone mineral density of the lumbar spine is normal. 2. The bone mineral density of the left femoral neck is normal. 3. The bone mineral density of the left total hip is normal. 4. Overall, the above findings are normal by WHO criteria. 5. Calculation of fracture risk using the FRAX model is not appropriate in certain settings. It was not performed in this patient because the patient met the following condition(s): normal bone density. General comments regarding interpretation of bone density measurements: A) In children, premenopausal woman and males under age 50 not at increased risk for fractures only Z-scores, not T-scores are used to indicate risk. A Z-score above -2.0 is defined as within the expected range for age and Z-score at or less than -2.0 is below the expected range for age . A Z-score below the expected range for age in a patient with recent fractures and/or chronic corticosteroid treatment is consistent with a diagnosis of osteoporosis. B) In post menopausal women and males over 50, comparison of the measured bone mineral density with the average value in young normal subjects (the T-score ) has been found to be useful in assessing fracture risk. Fracture risk approximately doubles for each 1.0 standard deviation (SD) in individual's hip or spine bone mineral density is below the average value of young normal subjects. The World Health Organization (WHO) has defined T-scores of -1.0 to -2.5 as diagnostic of low bone mass (OSTEOPENIA), and T-scores of -2.5 or lower to be diagnostic of OSTEOPOROSIS, based on the site of lowest bone density. Note that there will be a change in reporting format and reference databases as patients move from the younger population (group A) to the older population (group B) The National Osteoporosis Foundation (www.nof.org) recommends adequate intake of calcium and vitamin D and regular weight-bearing exercise in all patients. They recommend pharmacologic treatment in postmenopausal women and men age 50 and older presenting with any of the followin) Osteoporosis, after appropriate evaluation to exclude secondary causes. 2) A hip or vertebral (clinical or radiographic) fracture, regardless of the bone density. 3) Low bone mass (Osteopenia) and one or more of: other prior fractures, secondary causes associated with high risk of fracture (such as glucocorticoid use or total immobilization), or computed high risk of fracture (10-yr probability of hip fracture >= 3% or a 10-yr probability of any major osteoporosis-related fracture >= 20% based on the [place].-adapted WHO algorithm), available at http://www.shef.ac.uk/FRAX). Dictated by: Edgar Lara M.D. The radiology attending physician has personally reviewed this study, and had reviewed and/or edited this written report and agrees with it. Electronically signed by: Heri Harmon M.D. 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 ADVANCE DIRECTIVE 04/18/2019 7:53 AM * Full Code (Latest Code Status on File) Date Activated Date Inactivated Comments 07/12/2023 7:11 AM 07/12/2023 2:35 PM * Full Code Date Activated Date Inactivated Comments 01/04/2023 11:56 AM 01/04/2023 6:17 PM * Full Code Date Activated Date Inactivated Comments 04/18/2019 4:13 PM 04/20/2019 7:06 PM Care Teams Motion Study Analyst Relationship Specialty Start Date End Date Leticia Thorne, METER SUPERVISOR [address] [place] [address] PCP - General Family Medicine 02/20/24 Odilon Chester MD 1 [facility] [place] [address] Referring Physician Gastroenterology 06/06/23 Roosevelt Thomas MD 1 [facility] [place] [address] Fellow Pulmonary Disease 06/06/23
--- OUTSIDE RECORDS SUMMARY | 2024-05-20 13:05 | XMS_ITS | Continuity of Care Document ---
Author Organization [facility] [address] [place] [address] Phone Care Team Providers Care High [employer] Foreign Language Teacher Name Role Phone Guzman OD, Adam Unavailable Unavailable Procedures Procedure Date Eye Exam & Treatment Refraction Eye Exam & Treatment Refraction Eye Exam & Treatment Refraction Eye Exam & Treatment Refraction Advance Directives Directive Yes / No Effective Date File Name No Information Encounters Encounter Description Practice Location Reason(s) For Visit Diagnoses Date Provider Providers Copied on Encounter [facility], [address] [place] [address] [address], [place], [place], [id number], tel:[phone] SEC [facility] No Information 6-201 0 Guzman OD Adam. [address] , [address], [place], [place], [facility], . tel:[phone] [facility], [address], [place], [place], [id number], [place] tel:[phone] [facility] No Information 6-200 9 Guzman OD Adam. [address] , [address], [place], [place], [facility], . tel:[phone] [facility], [address], [place], [place], [id number], tel:[phone] [facility] No Information 0-200 8 Guzman OD Adam. [address] , [address], [place], [address], [place]. tel:[phone] [facility], [address], [place], [place], [id number], [place] tel:[phone] SEC [facility] No Information 8-200 7 Guzman OD Adam. [address] , [address], [place], [address], [place]. tel:[phone] Family History Family Member Type Diagnosis Age At Onset No Information Payers Payer name Insurance type Covered republican ID Authoriza tion(s) No Information Social History Type Description Quantity Date Captured Comments Sex Female Smoking Status No Information Chief Complaint And Reason For Visit No Information Reason For Referral Reason For Referral No Information History Of Present Illness Encounter Date Complaint History Of Prese nt Illness No Information Functional Status Date Functional Assessmen t No Information Instructions Date Instruction Additional Infor mation No Information Assessments Type Assessment Date No Information Patient Care Teams Name Effective Dates (start - stop) Status Members No Information
--- OUTSIDE RECORDS SUMMARY | 2024-05-20 13:05 | XMS_ITS | Encounter Summary ---
Author Organization [facility] Address [address] [place] [address] Phone Care Team Providers Care Global Director Air And Climate Change Name Role Phone Odilon Chester MD Unavailable [phone] Roosevelt Thomas MD Unavailable [phone] Leticia Thorne LUBRICATION EQUIPMENT SERVICER Primary Care Provider [phone] Reason for Visit * Consultation (Routine) - Authorized Specialty Diagnoses / Procedures Referred By Contac t Referred To Contact Diagnoses Elevated LFTs Hepatic steatosis Cathi Herzog PA [address] [place] [address] Phone: tel: fax: Betina Gage NP [address] [place] [address] Phone: tel: fax: Referral ID Status Reason Start Date Expiration Date Visits Requested Visits Authorized [id number] Authorized Specialty Services Required 11/23/2023 12/22/2024 99 99 Encounter Details Date Type Department Care Team (Late st Contact Info) Description 05/02/2024 12:45 PM FOOD AND BEVERAGE ASSOCIATE Office Visit [facility] Gastroenterology [address] [facility] [address] [place] [address] Valerie Tripathi PA [address] [place] [address] Gastric polyp (Primary Dx); Irritable bowel syndrome with diarrhea; Gastroesophageal reflux disease, unspecified whether esophagitis present; Hepatic steatosis Social History Tobacco Use Types Packs/Day Years Used Date Smoking Tobacco: Never Smokeless Tobacco: Never Alcohol Use Standard Drinks/Week Comments Not Currently [...] on file Legal Sex Female 2:22 AM FOOD AND BEVERAGE ASSOCIATE Gender Identity Female 05/18/2019 7:17 PM FOOD AND BEVERAGE ASSOCIATE Sexual Orientation Straight 05/18/2019 7: 17 PM FOOD AND BEVERAGE ASSOCIATE documented as of this encounter Last Filed Vital Signs Vital Sign Reading Time Taken Comments Blood Pressure 126/84 05/02/2024 12:37 PM FOOD AND BEVERAGE ASSOCIATE Pulse 73 05/02/2024 12:37 PM FOOD AND BEVERAGE ASSOCIATE Temperature - - Respiratory Rate - - Oxygen Saturation - - Inhaled Oxygen Concentration - - Weight 127 kg (280 lb) 05/02/2024 12:37 PM FOOD AND BEVERAGE ASSOCIATE Height 177.7 cm (5' 9.96 ) 05/02/2024 12:37 PM C Body Mass Index 40.22 05/02/2024 12:37 PM FOOD AND BEVERAGE ASSOCIATE documented in this encounter Plan of Treatment Not on file documented as of this encounter Visit Diagnoses Diagnosis Gastric polyp- Primary Benign neoplasm of stomach Irritable bowel syndrome with diarrhea Irritable bowel syndrome Gastroesophageal reflux disease, unspecified whether esophagitis present Hepatic steatosis Other chronic nonalcoholic liver disease documented in this encounter Discontinued Medications Medication Sig Discontinue Reason Start Date End Da te omeprazole (PriLOSEC) 40 mg capsuleIndications:Jovita roesophageal reflux disease, unspecified whether esophagitis present Take 1 capsule (40 mg total) by mouth 2 (two) times a day before breakfast and dinner Therapy completed 01/05/2024 05/02/2024 documented as of this encounter Historical Medications * This list may reflect changes made after this encounter. omeprazole 20 mg tablet,delayed release (DR/EC) Take 1 tablet (20 mg total) by mouth daily meloxicam (MOBIC) 7.5 mg tablet Take 1 tablet (7.5 mg total) by mouth daily 04/29/2024 cholecalciferol (VITAMIN D-3) 2000 unit tablet melatonin/soy/coh osh/calc carb (ESTROVEN NIGHTTIME, GREGORIO-MELTN, ORAL) 01/22/2024 added in this encounter Care Teams Global Director Air And Climate Change Relationship Specialty Start Date End Date Leticia Thorne NP [address] [place] [address] PCP - General Family Medicine 02/20/24 Odilon Chester MD 1 [facility] [place] [address] Referring Physician Gastroenterology 06/06/23 Roosevelt Thomas MD 1 [facility] [place] [address] Fellow Pulmonary Disease 06/06/23 documented as of this encounter
--- OUTSIDE RECORDS SUMMARY | 2024-05-20 13:05 | XMS_ITS | Encounter Summary ---
Author Organization [facility] Address [address] [place] [address] Phone Care Team Providers Care Construction Carpenter Name Role Phone Odilon Chester MD Unavailable [phone] Roosevelt Thomas MD Unavailable [phone] Leticia Thorne INSULATION POWER UNIT TENDER Primary Care Provider [phone] Encounter Details Date Type Department Care Team (Late st Contact Info) Description 04/22/2024 Telephone [facility] Gasteroenterology [address] [facility] [address] [place] [address] [place] [address] Betina Gage NP [address] [place] [address] Social History Tobacco Use Types Packs/Day Years [...] on file Legal Sex Female 2:22 AM COAL DIGGER Gender Identity Female 05/18/2019 7:17 PM COAL DIGGER Sexual Orientation Straight 05/18/2019 7: 17 PM COAL DIGGER documented as of this encounter Ordered Prescriptions Prescription Sig Dispense Quantity Refills Last Filled Start Date End Date vitamin E (AQUASOL E) 400 unit capsuleIndications:Me tabolic dysfunction-associate d steatohepatitis (MASH) Take 2 capsules (800 Units total) by mouth daily 60 capsule 11 04/22/2024 documented in this encounter Miscellaneous Notes * Telephone Encounter - Sharee Berman RN - 04/23/2024 8:04 AM CST Delayed task to the pool to schedule the HFP in 2-3 months (early June 2024- early July 2024). DIGGER * Telephone Encounter - Betina Gage NP - 04/22/2024 8:06 PM COAL DIGGER Sent rx for vitamin E. HFP in 2-3 months. Patient aware. DIGGER * Telephone Encounter - Betina Gage NP - 04/22/2024 2:12 PM COAL DIGGER Patient not doing clinical trial and is not a candidate for GLP-1. Therefore, will start vitamin E.Sent rx to pharmacy and my chart message. 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
--- OUTSIDE RECORDS SUMMARY | 2024-05-20 13:05 | XMS_ITS | Referral Summary ---
Author Organization [facility] Address [address] [place] [address] Care Team Providers Care Housekeeping Supervisor Hotel Name Role Phone Odilon Chester MD Unavailable Roosevelt Thomas MD Unavailable [phone] Leticia Thorne HEATING AND COOLING TECHNICIAN Primary Care Provider [phone] Encounters Date Type Department Care Team Description 05/02/2024 12:45 PM GATE TENDER Office Visit [facility] Gastroenterology [address] 2nd Floor [address] [place] [address] Valerie Tripathi PA Gastric polyp (Primary Dx); Irritable bowel syndrome with diarrhea; Gastroesophageal reflux disease, unspecified whether esophagitis present; Hepatic steatosis 04/22/2024 Telephone [facility] Gasteroenterology [address] [facility] Advanced Medicine 12th [place] [address] [place] [address] Betina Gage NP 04/22/2024 8:53 AM GATE TENDER - 04/22/2024 11:59 PM GATE TENDER Hospital Encounter [facility] [address] [place] [address] Screening mammogram, encounter for Discharge Disposition: Discharge to home or self care 04/18/2024 9:15 AM GATE TENDER Office Visit [facility] Orthopaedic Surgery [facility] Medical Office Building [address] [place] [address] Miguel Bryson NP Achilles tendinitis of left lower extremity (Primary Dx) 04/05/2024 Telephone [facility] Gasteroenterology [address] [facility] Advanced Medicine 12th [place] [address] [place] [address] Betnia Gage NP 04/03/2024 7:15 AM GATE TENDER - 04/03/2024 11:59 PM GATE TENDER Hospital Encounter [facility] Radiology [facility] [address] [place] [address] NAFLD (nonalcoholic fatty liver disease) Discharge Disposition: Discharge to home or self care 03/25/2024 10:38 AM GATE TENDER - 03/25/2024 11:59 PM GATE TENDER Hospital Encounter [address] [address] Left ankle pain, unspecified chronicity Discharge Disposition: Discharge to home or self care 03/25/2024 10:36 AM GATE TENDER - 03/25/2024 11:59 PM GATE TENDER Hospital Encounter [address] [phone] Left foot pain Discharge Disposition: Discharge to home or self care 03/25/2024 10:45 AM GATE TENDER Office Visit [facility] Orthopaedic Surgery [address] [place] [address] Medical Office Building 1 [address] [place] [address] Miguel Bryson NP Left foot pain (Primary Dx); Left ankle pain, unspecified chronicity; Follow-up exam 03/11/2024 11:00 AM CDT Lab [facility] [address] [place] [address] NAFLD (nonalcoholic fatty liver disease); Encounter for screening for other viral diseases 03/11/2024 10:00 AM CDT Office Visit [facility] Gastroenterology [address] [facility] [address] [place] [address] Betina Gage NP NAFLD (nonalcoholic fatty liver disease) (Primary Dx); Encounter for screening for other viral diseases; Elevated liver enzymes 02/28/2024 8:30 AM CDT Office Visit [facility] Allergy and Immunology [address] [place] [address] Dy, Angela Preciado MD Seasonal allergic rhinitis due to pollen (Primary Dx); Dyspnea on exertion; Allergic rhinitis due to mold from Last 3 Months Allergies Active Allergy Reactions Criticality Noted Date Comments Enoxaparin Hives,Itching,Redness,Swelling Medium 08/06 Droperidol Anxiety Low 03/26/2019 irritability Penicillins Swelling Medium 02/06/2017 Medications ALPRAZolam (XANAX) 0.25 mg tablet Take 1 tablet (0.25 mg total) by mouth 3 (three) times a day as needed for anxiety Active losartan-hydroCHLO ROthiazide (HYZAAR) 50-12.5 mg per tablet 1/2 tab am 10/15/19 21 Active SUMAtriptan (IMITREX) [...] like a GLP-1 or rezdiffra. Referral to regional training manager placed. We discussed the importance of weight [...] without holes/tears/breaks on dilated exam Return to [facility] in 6 months for DFE OU. Assessment & Plan (12/14/2022 2:16 PM CDT): Symptoms started 10/23/22. Exam reassuring today - PVD without holes/tears/breaks on CUSTOMER LOYALTY REPRESENTATIVE 360 Return to [facility] clinic in 3 months for DFE OU. [...] Tolerated procedure successfully. rtc 1 week at [facility] retina for repeat exam Assessment & [...] (03/27/2019): Added automatically from request for surgery [id number] NAFLD (nonalcoholic fatty liver disease) 019 Resolved Problems Problem Noted Date Diagnosed Date Resolved Date Abnormal CT scan 11/24/2022 06/06/2023 Immunizations Name Administration Dates Next Due COVID-19 [...] (Arexvy) 06/16/2023 Tdap 06/11/2023 ZOSTER Recombinant 12/05/2018,09/28/2018 Social History Tobacco Use Types Packs/Day Years [...] on file Legal Sex Female 2:22 AM GATE TENDER Gender Identity Female 05/18/2019 7:17 PM GATE TENDER Sexual Orientation Straight 05/18/2019 7: 17 PM GATE TENDER Last Filed Vital Signs Vital Sign Reading Time Taken Comments Blood Pressure 126/84 05/02/2024 12:37 PM GATE TENDER Pulse 73 05/02/2024 12:37 PM GATE TENDER Temperature 36.8 ??C (98.3 ??F) 03/11/2024 9:59 AM CD T Respiratory Rate 20 02/28/2024 8:15 AM CDT Oxygen Saturation 99% 03/11/2024 9:59 AM CDT Inhaled Oxygen Concentration - - Weight 127 kg (280 lb) 05/02/2024 12:37 PM GATE TENDER Height 177.7 cm (5' 9.96 ) 05/02/2024 12:[address] Body Mass Index 40.22 05/02/2024 12:37 PM GATE TENDER Plan of Treatment Not on file Procedures Procedure Name Priority Date/Time Associated Diagnosis Comments SCREENING MAMMOGRAM BILATERAL W LALO Schedule Routine, Read Routine (OP Routine) 04/22/2024 9:16 AM GATE TENDER Screening mammogram, encounter for MRI ABDOMEN W WO CONTRAST WITH MR ELASTOGRAPHY (C) Schedule Routine, Read Routine (OP Routine) 04/03/2024 8:41 AM GATE TENDER NAFLD (nonalcoholic fatty liver disease) XR FOOT LEFT 3 OR MORE VIEWS Schedule Routine, Read Routine (OP Routine) 03/25/2024 10:47 AM GATE TENDER Left foot pain XR ANKLE LEFT 3 OR MORE VIEWS Schedule Routine, Read Routine (OP Routine) 03/25/2024 10:46 AM GATE TENDER Left ankle pain, unspecified chronicity EGFR Routine [...] Mammogram Bilateral W Lalo (04/22/2024 9:16 AM GATE TENDER) Anatomical Region Laterality Modality Breast Bilateral Mammography Narrative 04/22/2024 4:59 PM GATE TENDER Mammogram Technique: Bilateral Digital Breast Tomosynthesis, Bilateral C-view 2D Screening mammogram. ??Views obtained: ??bilateral craniocaudal and bilateral mediolateral oblique. ??Computer Aided Detection was performed. Mammogram Findings: The present examination has been compared to prior imaging studies performed at [facility] on 04/15/2022, 04/20/2023 and 05/05/2023. There are [...] compared to prior imaging studies performed at [facility] on 04/15/2022, 04/20/2023 and 05/05/2023. There are [...] With MR Elastography (C) (04/03/2024 8:41 AM GATE TENDER) Anatomical Region Laterality Modality Body N/A Magnetic Resonan ce 04/03/2024 10:5 9 AM GATE TENDER Impressions 04/03/2024 11:59 AM GATE TENDER 1. Mild hepatic steatosis. 2. Mean liver stiffness of 3.4 kilopascals (kPa). 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 The radiology attending physician has personally reviewed this study, and had reviewed and/or edited this written report and agrees with it. Electronically signed by: Darwin Salazar M.D. Narrative 04/03/2024 11:59 AM GATE TENDER EXAMINATION: 1. MAGNETIC RESONANCE IMAGING OF THE ABDOMEN WITH AND WITHOUT CONTRAST 2. MR LIVER ELASTOGRAPHY HISTORY: Hepatic steatosis TECHNIQUE: Magnetic resonance imaging of the abdomen was performed prior to and following the uneventful administration of intravenous Gadolinium contrast. MR elastography was performed using the [employer] system. Protocol: Routine liver with elastography Contrast: [...] possible causes of increased liver stiffness. (Rosendo Carrasquillo, Silvestre Quiroz. Magnetic resonance elastography of the liver. Magn [...] contrast. MR elastography was performed using the [employer] system. Protocol: Routine liver with elastography Contrast: [...] by: Darwin Salazar M.D. Betina Gage NP IMG MRI PROCEDURES Final Result * XR Foot Left 3 or More Views (03/25/2024 10:47 AM GATE TENDER) Anatomical Region Laterality Modality Lower Extremities, Foot Left Digital Radiography 03/25/2024 11:5 7 AM GATE TENDER Impressions 03/25/2024 11:57 AM GATE TENDER There are extensive enthesopathic changes along the [...] Bina Bird M.D. Narrative 03/25/2024 11:57 AM GATE TENDER EXAMINATION: 1. ??3 VIEWS OF THE LEFT [...] by: Bina Bird M.D. us Miguel Bryson HEATING AND COOLING TECHNICIAN IMG XR PROCEDURES Final Re sult * XR Ankle Left 3 or More Views (03/25/2024 10:46 AM GATE TENDER) Anatomical Region Laterality Modality Lower Extremities, Ankle Left Digital Radiography 03/25/2024 11:5 7 AM GATE TENDER Impressions 03/25/2024 11:57 AM GATE TENDER There are extensive enthesopathic changes along the [...] Bina Bird M.D. Narrative 03/25/2024 11:57 AM GATE TENDER EXAMINATION: 1. ??3 VIEWS OF THE LEFT [...] by: Bina Bird M.D. us Miguel Bryson HEATING AND COOLING TECHNICIAN IMG XR PROCEDURES Final Re sult * [...] LAB BLOOD ORDERABLES Fin al Result [facility] [address] [facility]. Department [place] [address] * Differential, auto (03/11/2024 11:02 AM CDT) Neutrophil abs 2.9 1.5 - 6.5 K/cumm Imm gran abs 0.0 0.0 - 0.1 K/cumm [facility] Lymphocyte abs 2.8 0.8 - 3.3 K/cumm [facility] Monocyte abs 0.5 0.2 - 0.8 K/cumm [facility] Eosinophil abs 0.1 0.0 - 0.5 K/cumm [facility] Basophil abs 0.1 0.0 - 0.1 K/cumm [facility] Neutrophil pct 45.4 % [facility] Comment: Interpretive Data Percent cell count reference ranges are not reported, since discordance with absolute values may lead to misinterpretation of CBC data. Current Interpretive Data was last revised on 2017. Imm gran pct 0.3 % [facility] Comment: Interpretive Data Percent cell count reference ranges are not reported, since discordance with absolute values may lead to misinterpretation of CBC data. Current Interpretive Data was last revised on 2017. Lymphocyte pct 44.0 % [facility] Comment: Interpretive Data Percent cell count reference ranges are not reported, since discordance with absolute values may lead to misinterpretation of CBC data. Current Interpretive Data was last revised on 2017. Monocyte pct 7.7 % [facility] Comment: Interpretive Data Percent cell count reference ranges are not reported, since discordance with absolute values may lead to misinterpretation of CBC data. Current Interpretive Data was last revised on 2017. Eosinophil pct 1.8 % [facility] Comment: Interpretive Data Percent cell count reference ranges are not reported, since discordance with absolute values may lead to misinterpretation of CBC data. Current Interpretive Data was last revised on 2017. Basophil pct 0.8 % [facility] Comment: Interpretive Data Percent cell count reference ranges are not reported, since discordance with absolute values may lead to misinterpretation of CBC data. Current Interpretive Data was last revised on 2017. Blood 03/11/2024 11:0 2 AM CDT 03/11/2024 11:20 AM CDT Betina Gage HEATING AND COOLING TECHNICIAN LAB BLOOD ORDERABLES Fin al Result [facility] [address] [facility]. [place] [address] * CBC with auto differential (03/11/2024 11:02 AM CDT) WBC 6.3 3.8 - 9.9 K/cumm Hgb 14.1 11.9 - 15.5 g/dL [facility] Hct 41.1 35.6 - 45.5 % [facility] Plt 259 150 - 400 K/cumm [facility] MPV 10.7 9.1 - 12.3 fL [facility] MACYW RBC 4.54 3.90 - 5.20 M/cumm [facility] MCV 90.5 81.3 - 96.4 fL [facility] MCH 31.1 27.1 - 33.3 pg [facility] MCHC 34.3 32.3 - 35.7 g/dL [facility] RDW CV 13.4 11.1 - 14.9 % [facility] RDW SD 43.8 35.7 - 48.1 fL [facility] NRBC abs 0.00 0.00 - 0.01 K/cumm [facility] Blood 03/11/2024 11:0 2 AM CDT 03/11/2024 11:20 AM CDT Betina Gage NP LAB BLOOD ORDERABLES Fin al Result Performing Organization Address [facility] Co de Phone Number [facility] [address] [employer] [place], [place] [phone] * Hepatitis A antibody, total Blood (03/11/2024 11:02 AM CDT) Pathologist [facility] Hep A total Nonreactive Nonreactive Comment:Testing performed by : [facility], [address] [place] [address], [place]., [address] Blood 03/11/2024 11:0 2 AM CDT 03/11/2024 1:16 PM CDT Betina Gage NP LAB MICROBIOLOGY - GENER AL ORDERABLES Final Result Performing Organization Address [facility] Co de Phone Number [facility] [address] [employer] [place], [place] [phone] * Hepatitis B surface antibody (immune status) Blood (03/11/2024 11:02 AM CDT) [facility] HBsAb (immune status) Reactive Comment: This result is consistent with immunity to Hepatitis B Virus when used in the setting of routine screening. Current interpretive data was last revised on 22 Testing performed by: [facility], [address] [place]., [address] HBsAb (immune status) index 15.0 mIUnits/m L [facility] Comment:Testing performed by : [facility], [address] [place]., [address] Blood 03/11/2024 11:0 2 AM CDT 03/11/2024 1:16 PM CDT Betina Gage NP LAB MICROBIOLOGY - GENER AL ORDERABLES Final Result Performing Organization Address [facility] de Phone Number [facility] [address] [employer] [place], [place] [phone] * Protime-INR (03/11/2024 11:02 AM CDT) PT 11.4 9.7 - 13.0 sec INR [...] ORDERABLES Fin al Result Performing Organization Address [facility] Co de Phone Number [facility] [address] [facility] [employer] [employer] [place], [place] [phone] * (ABNORMAL) Comprehensive metabolic panel (03/11/2024 11:02 [...] classification and Diagnosis of Diabetes Diabetes Care 2021; 46: S19-S40. Current interpretive data was last [...] AST 59(H) 10 - 45 Units/L [facility] Blood 03/11/2024 11:0 2 AM CDT 03/11/2024 11:20 AM CDT Betina Gage NP LAB BLOOD ORDERABLES Fin al Result [facility] [address]. [place] [address] * SCAN - LABS (02/28/2024) us Provider Scanning Edited Result - Final * Hepatitis panel, acute Blood (11/27/2023 8:39 AM CDT) Hep A IgM Nonreactive Nonreactive Comment: Interpretive Data: If Hep A IgM Ab is reported as Equivocal, a new sample should be drawn in two weeks for testing. Current interpretive data was last revised on 19. Hep B core IgM Nonreactive Nonreactive [facility] Comment: Interpretive Data If HepB Core IgM Ab is reported as Equivocal, a new sample should be drawn in two weeks for testing. Current interpretive data was last revised on 19. Hep C Ab Nonreactive Nonreactive [facility] Comment: Interpretive Data Nonreactive: Antibodies to HCV [...] last revised on 2019. HepBsAg Nonreactive Nonreactive [facility] Blood 11/27/2023 8:39 AM CDT 11/27/2023 2:38 PM CDT Cathi GERONIMO LAB MICROBIOLOGY - GENE RAL ORDERABLES Final Result [facility] [address] Department [place] [address] * COLONOSCOPY (01/04/2023 12:55 PM CDT) Anatomical Region Laterality Modality Other Narrative Procedure Note Odilon Chester MD - 01/04/2023 12:55 PM CDT ENDOSCOPY LAB Patient Name: Josy Fiore Procedure Date: 01/04/2023 12:55 PM Date of : 1960 Admit Type: Outpatient Age: 62 Gender: Female Attending MD: Odilon Chester M.D. Room: [facility] ENDOSCOPY ROOM 03 Note Status: Finalized Procedure: Colonoscopy Indications: Screening for colorectal malignant neoplasm, Last colonoscopy: 2018 Providers: Odilon Chester M.D. Referring MD: Bj [...] The scope was passed under direct vision.The [id number] was introduced through the anusand advanced to [...] business hours - Please call theNurse Coordinator: [phone] After hours, evening, nights, weekends and holidays- Please call the hospital offset lithographic press operator at and ask for the GI fellow alteration inspector. Attending Participation: I personally performed the entire procedure. Electronically signed by Odilon Chester MD Odilon Chester M.D. 01/04/2023 1:25:11 PM Number of Addenda: 0 Note Initiated On: 01/04/2023 12:55 PM us Odilon Chester MD ENDOSCOPY PROCEDURES Final Result [...] it. Electronically signed by: Heri Harmon M.D. [facility] Geoffrey Terry MD IMG DXA PROCEDURES Final Result from Last 3 Months or Most Recently Relevant to Health Maintenance Insurance [employer] [facility] [employer] [employer]ANS Address: [address] [place] [address] MEDICARE [employer] P[employer] Advance Directives For more information, please contact: [phone] Documents on File Type Date Recorded Patient Jet Piercer Operator Expl anation ADVANCE DIRECTIVE 04/18/2019 7:53 AM * Full Code (Latest Code Status on File) Date Activated Date Inactivated Comments 07/12/2023 7:11 AM 07/12/2023 2:35 PM * Full Code Date Activated Date Inactivated Comments 01/04/2023 11:56 AM 01/04/2023 6:17 PM * Full Code Date Activated Date Inactivated Comments 04/18/2019 4:13 PM 04/20/2019 7:06 PM Care Teams Housekeeping Supervisor Hotel Relationship Specialty Start Date End Date Leticia Thorne, HEATING AND COOLING TECHNICIAN [address] [place] [address] PCP - General Family Medicine 02/20/24 Odilon Chester MD [address] [facility] [place] [address] Referring Physician Gastroenterology 06/06/23 Roosevelt Thomas MD [address] [facility] [place] [address] Fellow Pulmonary Disease 06/06/23
--- OUTSIDE RECORDS SUMMARY | 2024-05-20 13:05 | XMS_ITS | Continuity of Care Document ---
Author Organization [facility] Address [address] [place] [address] Phone Care Team Providers Care Sand Miller Name Role Phone Chauncey ALBERT, FACRigo, Avelino VELASQUEZ Unavailable Un available Procedures Procedure Date NO CHARGE INPATIENT CONSULTATION ROUTINE VENIPUNCTURE OFFICE/OUTPATIENT VISIT NEW URINALYSIS AUTO W/SCOPE Advance Directives Directive Yes / No Effective Date File Name No Information Encounters Encounter Description Practice Location Reason(s) For Visit Diagnoses Date Provider Providers Copied on Encounter [facility], [facility] Ronal Burdenren [address], [id number], [place] tel:[phone] [address] [place] [address] No Information 3 Chauncey You. [facility] Ronalradha Zhu [address], [id number] , [place]. tel:[phone] Referring Provider: Pop Condon MD, [address] [facility] [address], [place], [address]. tel:[phone] INPATIENT CONSULTATION [facility], [facility] Ronal Burdenasher [address], [id number], [place] tel:[phone] 0 [facility] No Information 3 Chauncey You. [facility] Ronalradha Burdenren [address], [id number] , [place]. tel:[phone] Referring Provider: Pop Condon MD, [address] [facility] [address], [place], [address]. tel:[phone] [facility], [address] [place], [place], [id number], [place] [phone] [facility] No Information 2 Lisandra Chaidez. [facility] [place], [address], [place]. tel: [phone] OFFICE/OUTPATI ENT VISIT NEW [facility], [address] [place], [place], [id number], [place] tel:[phone] [facility] No Information 2 Lisandra Chaidez. [address] [place], [address], [place]. tel: [phone] Family History Family Member Type Diagnosis Age At Onset No Information Payers Payer name Insurance type Covered libertarian ID Authoriza tiscott(s) [employer] - Attn Claims Dept [id number] Social History Type Description Quantity Date Captured [...]
--- OUTSIDE RECORDS SUMMARY | 2024-05-20 13:05 | XMS_ITS | Encounter Summary ---
Author Organization [facility] Address [address] [place] [address] Phone Care Team Providers Care Potline Monitor Name Role Phone Odilon Chester MD Unavailable [phone] Roosevelt Thomas MD Unavailable [phone] Leticia Thorne HEMMER LOCKSTITCH Primary Care Provider [phone] Reason for Visit * Reason Comments Follow-up Encounter Details Date Type Department Care Team (Late st Contact Info) Description 04/18/2024 9:15 AM TORCH OPERATOR Office Visit [facility] Medical Office Building [address] [place] [address] [place] [address] [place] [address] Achilles tendinitis of left lower extremity (Primary Dx) Social History Tobacco Use Types Packs/Day Years [...] on file Legal Sex Female 2:22 AM TORCH OPERATOR Gender Identity Female 05/18/2019 7:17 PM TORCH OPERATOR Sexual Orientation Straight 05/18/2019 7: 17 PM TORCH OPERATOR documented as of this encounter Progress Notes * Miguel Bryson, HEMMER LOCKSTITCH - 04/18/2024 9:15 AM CST RETURN PATIENT VISIT INTERIM HISTORY The patient is here for follow-up of her left heel. She has Achilles tendinitis. She has been working through conservative management. She wore a boot. She felt the boot was very helpful. She is overall doing better. She has a regular shoe on today. She has been using a night splint. She has been doing therapy for her piriformis but nothing formal for the Achilles. She does home exercises. She too k herself out of the boot on April 12. She has noticed some increased pain in her heel at the area of her plantar fascia. PHYSICAL EXAMINATION On physical exam she is alert and oriented x3. Skin exam reveals no rashes, lesions or ulcers. Sensation is intact to light touch. She has intact dorsiflexion, plantar flexion, inversion and eversion. She has minimal tenderness at the insertion of the Achilles tendon. She does have some mild thickening. No swelling. No redness or bruising. No warmth. She is not tight through the calf. REVIEW OF X-RAYS/STUDIES No new radiographs were obtained today. IMPRESSION/DIAGNOSIS Improving left insertional Achilles tendinitis TREATMENT/PLAN We discussed treatment options in the office today. Clinically she is doing better. She will work on home exercises. She is having some pain in her plantar fascia. I recommend a heel cup. She will ice with a frozen water bottle. She will continue with home exercises. She can advance activity as shefeels comfortable. We will check her back in a month. She is agreeable with the plan. All her questions were answered today. FOLLOW UP Four weeks I was in collaboration with Dr. Subramanian today. Miguel Bryson, RN,BSN, MSN, HAIR AND MAKEUP DESIGNER, FUNCTIONAL MENTAL DISABILITY TEACHER-C, in collaborative practice with Dr. Cheryl Craig, Dr. Jarred Dempsey and Dr. Jordon Subramanian Nurse Practitioner, Foot and Ankle Service [facility]. This is ANNA Dickey dictating using Fluency Direct Software Program. Survey Coordinator variances may occur. H OPERATOR documented in this encounter Plan of Treatment Not on file documented as of this encounter Visit Diagnoses Diagnosis Achilles tendinitis of left lower extremity- Primary documented in this encounter Care Teams Potline Monitor Relationship Specialty Start Date End Date Leticia Thorne NP [address] [place] [address] PCP - General Family Medicine 02/20/24 Odilon Chester MD [address] [facility] [place] [address] Referring Physician Gastroenterology 06/06/23 Roosevelt Thomas MD [address] [facility] [place] [address] Fellow Pulmonary Disease 06/06/23 documented as of this encounter
--- OUTSIDE RECORDS SUMMARY | 2024-05-20 13:05 | XMS_ITS | Clinical Summary ---
Author Organization [employer] Address [address] [facility] Attn: Epic Prelude ADT [place] [place] [address] Care Team Providers Care Accountant Cost Name Role Phone Unavailable Primary Care Provider Unavailabl e Social History Tobacco Use Types Packs/Day Years Used Date Smoking Tobacco: Never Assessed Sex and Gender Information Value Date Recorded Sex Assigned at Not on file Gender Identity Not on file Sexual Orientation Not on file Plan of Treatment Health Maintenance Due Date Last Done Comments DTAP/TDAP/TD VACCINES (1 - Tdap) 1977 BREAST CANCER SCREENING 1998 COLORECTAL SCREENING 2003 Colorectal Cancer Screening 2003 FIT-DNA Q 3 years 2003 FIT/FOBT Q 1 year 2003 Flex Sig/CT Colonography Q 5 years 2003 ZOSTER VACCINE (1 of 2) 01/15/2008 OSTEOPOROSIS SCREENING 2023 PNEUMOCOCCAL VACCINE 65+ YEARS (1 of 1 - PCV) 01/15/20 23 INFLUENZA VACCINE (#1) 2023 RSV VACCINE (60+ or ) (1 - 1-dose 75+ series) 2033
--- OUTSIDE RECORDS SUMMARY | 2024-05-20 13:05 | XMS_ITS | Encounter Summary ---
Author Organization [employer] Address [address] [place] [address] Care Team Providers Care Hypertrichologist Name Role Phone Unavailable Primary Care Provider Unavailabl e Encounter Details Date Type Department Care Team (Latest Contact Info) Description 01/07/2008 Outpatient Historical HIS CARD SALES ENGINEER Maribel Armenta MD NO ADDRESS ON FILE Nonspecific Abnormal Unspecified Cardiovascular Function Study; Nonspecific Abnormal Electrocardiogram (ECG) (EKG) Social History Tobacco Use Types Packs/Day Years Used Date Smoking Tobacco: Never Assessed Sex and Gender Information Value Date Recorded Sex Assigned at Not on file Gender Identity Not on file Sexual Orientation Not on file documented as of this encounter Plan of Treatment Not on file documented as of this encounter Procedures Procedure Name Priority Date/Time Associated Diagnosis Comments CL CORONARY ANGIOGRAM Routine 01/07/2008 3:33 PM CDT PT AND APTT Stat 01/07/2008 1:57 PM CDT CBC WITH DIFFERENTIAL Stat 01/07/2008 1:57 PM CDT BASIC METABOLIC PANEL Stat 01/07/2008 1:57 PM CDT documented in this encounter Results * CL CORONARY ANGIOGRAM (01/07/2008 3:33 PM CDT) Narrative INTERFACE SYSTEM - 01/07/2008 3:33 PM CDT [facility] [address] [place] [address] [email or web address] Cardiac Catheterization Comprehensive Report Patient: ?oJsy Fiore Study ID: ? [id number] Gender: ? F : ?1960 Age: ?47 years Race: ? 1 Room: Bed: Height: ? 71 in ( 180.3 cm ) Study Date: ? January 07, 2008 Patient status: Outpatient Weight: ? 245.1 lb ( 111.4 kg ) Access. #: ?[id number] POC: Attending MD: ?? Meet Performing MD: ??Meet Indications and History: INDICATIONS: Atypical anginal pain. The patient stable. PRIOR DIAGNOSTIC TEST RESULTS: Previous pharmacologic nuclear stress test was positive. There was evidence for infarction in the lateral left ventricular wall. Procedure(s) Performed: DIAGNOSTIC PROCEDURES: Left heart catheterization. Left ventriculography. Selective coronary angiography. Study Conclusions: SUMMARY - ??Global left ventricular function was normal. - ??There was no angiographic evidence for coronary artery disease. RECOMMENDATIONS There is no evidence of obstruction to explain the reported symptoms; the stress test appears to be a false positive. The patient's chest discomfort does not appear due to obstructive coronary artery disease. COMPLICATIONS: There were no complications. Description of Procedure: BACKGROUND INFORMATION: The procedures, together with their attendant risks and alternatives, and conscious sedation were explained to the patient and informed consent was obtained. Contrast ( Optiray, 100 ml ) was administered during the procedure. The patient was given 100.000 mL (IV) IV Solutions. The patient was given 3.000 l/min OXYGEN. The patient was given 2.000 mg VERSED (IVP). NARRATIVE: - ??Right femoral artery access. A 4F [place] Sheath 10cm sheath was advanced into the artery. - ??Left and right coronary angiography. A 4F Multipack JL4 (diagnostic) , 4F Multipack JR4 (diagnostic) catheter was advanced to the ascending aorta , , and positioned in the vessel ostia. Digital angiography was performed in multiple projections using hand-injection of contrast. - ??Left heart catheterization. A 4F Multipack PIG (diagnostic) catheter was advanced to the ascending aorta. The catheter was advanced across the aortic valve. Pressure was recorded in the aorta and left ventricle. Ventriculography was performed using power injection of contrast agent. 30 degree FREEDMAN images were obtained. Post-ventriculography LV pressure was obtained. The catheter was gradually withdrawn into the aorta under continuous pressure monitoring and aortic pressure was recorded. Hemodynamics: IMPRESSIONS: Hemodynamic assessment demonstrated normal hemodynamics. Cardiac structures: VENTRICULOGRAPHY: There were no left ventricular regional wall motion abnormalities. Global left ventricular function was normal. VALVES: Mitral valve: The mitral valve exhibited no regurgitation. Coronary and graft angiography: The coronary circulation is right dominant. LEFT MAIN CORONARY ARTERY: Left main: The vessel was short. Angiography showed no evidence of disease. LEFT ANTERIOR DESCENDING AND BRANCHES: LAD: The vessel was medium-sized. There was one major diagonal branch. LEFT CIRCUMFLEX AND BRANCHES: Circumflex: The vessel was medium-sized. Angiography showed no evidence of disease. There were two major obtuse marginals. RIGHT CORONARY AND BRANCHES: RCA: The vessel was medium-sized. Angiography showed no evidence of disease. IMPRESSIONS: There was no angiographic evidence for coronary artery disease. Condition1: --- ??Pressure mmHg ?Rate ?dPdt AO ?? 100-S/ 58-D, 77-M ?54 BPM LV ?? 107-S/ 11-BD, 18-ED ??54 BPM ??1000 AOp ??115-S/ 71-D, 89-M ?54 BPM PBa ??104-S/ 57-D, 77-M ?53 BPM PBv ??106-S/ 12-BD, 17-ED ??54 BPM ??880 Prepared and Electronically Authenticated Scot Segundo MD Confirmed January 07, 2008 15:13:53 Procedure Note Provider, Historical - 01/07/2008 [place] [address] [place] [address] [email or web address] Cardiac Catheterization Comprehensive Report Patient: Josy Fiore Study ID: [id number] Gender: F : 1960 Age: 47 years Race: 1 Room: Bed: Height: 71 in ( 180.3 cm ) Study Date: January 07, 2008 Patient status: Outpatient Weight: 245.1 lb ( 111.4 kg ) Access. #: [id number] POC: Attending MD: Meet Performing MD: Meet Indications and History: INDICATIONS: Atypical anginal pain. The patient stable. PRIOR DIAGNOSTIC TEST RESULTS: Previous pharmacologic nuclear stress test was positive. There wasevidence for infarction in the lateral left ventricular wall. Procedure(s) Performed: DIAGNOSTIC PROCEDURES: Left heart catheterization. Left ventriculography. Selective coronary angiography. Study Conclusions: SUMMARY - Global left ventricular function was normal. - There was no angiographic evidence for coronary artery disease. RECOMMENDATIONS There is no evidence of obstruction to explain the reported symptoms;the stress test appears to be a false positive. The patient's chestdiscomfort does not appear due to obstructive coronary artery disease. COMPLICATIONS: There were no complications. Description of Procedure: BACKGROUND INFORMATION: The procedures, together with their attendant risks and alternatives,and conscious sedation were explained to the patient and informed consentwas obtained. Contrast ( Optiray, 100 ml ) was administered during the procedure. The patient was given 100.000 mL (IV) IV Solutions. Thepatient was given 3.000 l/min OXYGEN. The patient was given 2.000 mg VERSED(IVP). NARRATIVE: - Right femoral artery access. A 4F [place] Sheath 10cm sheath was advanced into the artery. - Left and right coronary angiography. A 4F Multipack JL4 (diagnostic), 4F Multipack JR4 (diagnostic) catheter was advanced to the ascending aorta , , and positioned in the vessel ostia. Digital angiography was performed in multiple projections using hand-injection of contrast. - Left heart catheterization. A 4F Multipack PIG (diagnostic) catheterwas advanced to the ascending aorta. The catheter was advanced across the aortic valve. Pressure was recorded in the aorta and left ventricle. Ventriculography was performed using power injection of contrast agent. 30 degree FREEDMAN images were obtained. Post-ventriculography LV pressure was obtained. The catheter was gradually withdrawn into the aorta under continuous pressure monitoring and aortic pressure was recorded. Hemodynamics: IMPRESSIONS: Hemodynamic assessment demonstrated normal hemodynamics. Cardiac structures: VENTRICULOGRAPHY: There were no left ventricular regional wall motion abnormalities.Global left ventricular function was normal. VALVES: Mitral valve: The mitral valve exhibited no regurgitation. Coronary and graft angiography: The coronary circulation is right dominant. LEFT MAIN CORONARY ARTERY: Left main: The vessel was short. Angiography showed no evidence ofdisease. LEFT ANTERIOR DESCENDING AND BRANCHES: LAD: The vessel was medium-sized. There was one major diagonal branch. LEFT CIRCUMFLEX AND BRANCHES: Circumflex: The vessel was medium-sized. Angiography showed no evidenceof disease. There were two major obtuse marginals. RIGHT CORONARY AND BRANCHES: RCA: The vessel was medium-sized. Angiography showed no evidence of disease. IMPRESSIONS: There was no angiographic evidence for coronary artery disease. Condition1: --- Pressure mmHg Rate dPdt AO 100-S/ 58-D, 77-M 54 BPM LV 107-S/ 11-BD, 18-ED 54 BPM 1000 AOp 115-S/ 71-D, 89-M 54 BPM PBa 104-S/ 57-D, 77-M 53 BPM PBv 106-S/ 12-BD, 17-ED 54 BPM 880 Prepared and Electronically Authenticated Scot Segundo MD Confirmed January 07, 2008 15:13:53 Maribel Armenta MD FLUOROSCOPY ORDERABL ES INTERFACE SYSTEM Refer to clinic/hospital department * PT AND APTT (01/07/2008 1:57 PM CDT) PTT 27.1 24.4 - 36.4 Seconds [facility] Comment: PTT Therapeutic Range: Heparin Level ? PTT (seconds) <0.10 units/mL ? <53 0.10 - 0.30 units/mL ? 53 - 67 0.30 - 0.70 units/mL* ?67 - 95* 0.70 - 1.00 units/mL ? 95 - 116 *corresponds to therapeutic range for unfractionated heparin PROTIME 14.1 12.7 - 15.1 Seconds [facility] INR 1.1 0.9 - 1.1 [facility] Comment: INR Therapeutic Range: Adult: ?? 2.0 - 3.0 for pulmonary embolism or prophylaxis against venous ?thrombosis or systemic embolization. 2.0 - 3.0 for patients with tissue heart valves. 2.5 - 3.5 for patients with mechanical heart valves or post [place]. Pediatric ??(12 years and under): 1.5 - 3.0 Although the target range in children is not well established, ?INR values of 1.5 - 3.0 are recommended for most patients. ?Higher values have been used in children with prosthetic ?cardiac valves and hereditary clotting disorders. [place] (<3 days) therapeutic ranges have not been established. Blood specimen (specimen) 01/07/2008 1:57 PM CDT 01/07/2008 2:09 PM CDT Maribel Armenta MD HEMATOLOGY ORDERABLE S INTERFACE SYSTEM Refer to clinic/hospital department [facility] CLIA# [id number] [address] [facility] [place] [address] * (ABNORMAL) CBC WITH DIFFERENTIAL (01/07/2008 1:57 PM CDT) RBC 4.01 3.90 - 4.90 M/uL [facility] MCHC 33.4 31.5 - 35.5 % [facility] MCV 91.0 82.0 - 99.0 fL [facility] PLATELETS 210 140 - 350 K/uL [facility] HEMOGLOBIN 12.2 11.8 - 14.8 g/dL [facility] RDW 13.4 11.5 - 14.5 % [facility] WBC 5.4 4.0 - 9.8 K/uL [facility] MCH 30.4 27.2 - 32.6 pg [facility] MPV 11.3 9.3 - 12.4 fL [facility] HEMATOCRIT 36.5 35.5 - 44.0 % [facility] RDW-STDEV 44.0 37.1 - 48.7 fL [facility] NEUTROPHILS 42(L) 45 - 70 % [facility] NEUTROPHIL ABSOLUTE 2.24 1.90 - 7.00 K/uL [facility] EOSINOPHILS 5 0 - 7 % [facility] EOSINOPHIL ABSOLUTE 0.25 0.00 - 0.70 K/uL [facility] LYMPHOCYTES 46(H) 16 - 45 % [facility] LYMPHOCYTE ABSOLUTE 2.48 0.70 - 4.50 K/uL [facility] BASOPHILS 1 0 - 2 % [facility] BASOPHILS ABSOLUTE 0.03 0.00 - 0.20 K/uL [facility] MONOCYTES 7 3 - 13 % [facility] MONOCYTE ABSOLUTE 0.37 0.10 - 1.30 K/uL [facility] Blood specimen (specimen) 01/07/2008 1:57 PM CDT 01/07/2008 2:09 PM CDT Maribel Armenta MD HEMATOLOGY ORDERABLE S INTERFACE SYSTEM Refer to clinic/hospital department [facility] CLIA# [id number] [address] [place] [place] [address] * BASIC METABOLIC PANEL (01/07/2008 1:57 PM CDT) BUN 18 6 - 20 mg/dL [facility] CHLORIDE 105 96 - 108 mmol/L [facility] GLUCOSE 90 65 - 99 mg/dL [facility] SODIUM 139 135 - 145 mmol/L [facility] CALCIUM 8.8 8.6 - 10.2 mg/dL [facility] Comment:Note new reference r gilda effective 12/13/07 CO2 27 22 - 30 mmol/L [facility] CREATININE 0.78 0.51 - 0.95 mg/dL [facility] POTASSIUM 4.6 3.5 - 4.9 mmol/L [facility] GFR, >60 >=60 mL/min/1.7 sq meter [facility] GFR >60 >=60 mL/min/1.7 sq meter [facility] Comment: Modification of Diet in Renal Disease (MDRD) study formula. Estimated GFR rate interpretative information for both Americans and non- Americans is available on the [facility] Intranet at: [email or web address] Select: Lab Policies and Procedures Select: Reference Ranges - GFR Blood specimen (specimen) 01/07/2008 1:57 PM CDT 01/07/2008 2:09 PM CDT Maribel Armenta MD CHEMISTRY ORDERABLES INTERFACE SYSTEM Refer to clinic/hospital department [facility] CLIA# [id number] [address] [place] [address] documented in this encounter Visit Diagnoses Diagnosis Nonspecific abnormal unspecified cardiovascular function study Nonspecific abnormal electrocardiogram (ECG) (EKG) documented in this encounter
--- OUTSIDE RECORDS SUMMARY | 2024-05-20 13:05 | XMS_ITS | Encounter Summary ---
Author Organization [facility] Healthcare Address [address] [place] [address] Care Team Providers Care Melter Supervisor Oxygen Furnace Name Role Phone Odilon Chester MD Unavailable Roosevelt Thomas MD Unavailable [phone] Leticia Thorne NP Primary Care Provider [phone] Reason for Referral * Diagnostic Imaging (Routine) - Pending Review Specialty Diagnoses / Procedures Referred By Contac t Referred To Contact Diagnoses Screening mammogram, encounter for Procedures Screening Mammogram Bilateral W Lalo Screening Mammogram, Self [place] [facility] Referral ID Status Reason Start Date Expiration Date V isits Requested Visits Authorized [id number] Pending Review 02/20/2024 03/21/2025 1 1 K REPAIR SUPERVISOR * Diagnostic Imaging (Routine) - Pending Review Specialty Diagnoses / Procedures Referred By Contac t Referred To Contact Diagnoses Screening mammogram, encounter for Procedures Screening Mammogram Bilateral W Lalo Screening Mammogram, Self [facility] Referral ID Status Reason Start Date Expiration Date V isits Requested Visits Authorized [id number] Pending Review 02/20/2024 03/21/2025 1 1 Reason for Visit * Diagnostic Imaging (Routine) - Pending Review Specialty Diagnoses / Procedures Referred By Contac t Referred To Contact Diagnoses Screening mammogram, encounter for Procedures Screening Mammogram Bilateral W Lalo Screening Mammogram, Self [place] [facility] Referral ID Status Reason Start Date Expiration Date V isits Requested Visits Authorized [id number] Pending Review 02/20/2024 03/21/2025 1 1 Encounter Details Date Type Department Care Team (Latest Contact Info) Description 04/22/2024 8:53 AM TRUCK REPAIR SUPERVISOR - 04/22/2024 11:59 PM TRUCK REPAIR SUPERVISOR Hospital Encounter [facility] Breast Imaging [facility] ([facility]) [address] [place], [place] [id number] Screening mammogram, encounter for Discharge Disposition: Discharge to home or self care Social History Tobacco Use Types Packs/Day Years [...] on file Legal Sex Female 2:22 AM TRUCK REPAIR SUPERVISOR Gender Identity Female 05/18/2019 7:17 PM TRUCK REPAIR SUPERVISOR Sexual Orientation Straight 05/18/2019 7: 17 PM TRUCK REPAIR SUPERVISOR documented as of this encounter Medications at Time of Discharge ALPRAZolam (XANAX) 0.25 mg tablet Take 1 tablet (0.25 mg total) by mouth 3 (three) times a day as needed for anxiety azelaic acid 15 % gel APPLY TOPICALLY TO THE AFFECTED AREA TWICE DAILY 11/18/2022 cholecalciferol (Vitamin D3) 2000 unit capsule 1 capsule (2,000 Units total) cyanocobalamin (Vitamin B-12) 1,000 mcg sublingual tablet Take 1 tablet (1,000 mcg total) by mouth daily dicyclomine (BENTYL) 20 mg tabletIndications:Ir ritable Bowel Syndrome Take 1 tablet (20 mg total) by mouth 3 (three) times a day as needed (abdominal cramping and diarrhea) 90 tablet 11 08/24/2023 08/19/19 25 losartan-hydroCHLORO thiazide (HYZAAR) 50-12.5 mg per tablet 1/2 tab am 10/14/2020 melatonin/soy/cohosh /calc carb (ESTROVEN NIGHTTIME, GREGORIO-MELTN, ORAL) 01/22/2024 ondansetron (ZOFRAN) 4 mg tablet Take 1 tablet (4 mg total) by mouth every 8 (eight) hours as needed for nausea or vomiting SUMAtriptan (IMITREX) 100 mg tablet tirzepatide, weight loss, (Zepbound) 2.5 mg/0.5 mL pen injectorIndications: Metabolic dysfunction-associat ed steatohepatitis (MASH),Class 3 severe obesity with serious [...] weekly dose: 15 mg/week) 10 mL 3 04/05/2024 vitamin E (AQUASOL E) 400 unit capsuleIndications:M etabolic dysfunction-associat ed steatohepatitis (MASH) Take 2 capsules (800 Units total) by mouth daily 60 capsule 11 04/22/2024 omeprazole (PriLOSEC) 40 mg capsuleIndications:G astroesophageal reflux disease, unspecified whether esophagitis present Take 1 capsule (40 mg total) by mouth 2 (two) times a day before breakfast and dinner 60 capsule 2 01/05/2024 05/02/20 24 documented as of this encounter Discharge Disposition Disposition Code Departure Means Destination Discharge to home or self care documented in this encounter Plan of Treatment Not on file documented as of this encounter Procedures Procedure Name Priority Date/Time Associated Diagnosis Comments SCREENING MAMMOGRAM BILATERAL W LALO Schedule Routine, Read Routine (OP Routine) 04/22/2024 9:16 AM TRUCK REPAIR SUPERVISOR Screening mammogram, encounter for documented in this encounter Results * Screening Mammogram Bilateral W Lalo (04/22/2024 9:16 AM TRUCK REPAIR SUPERVISOR) Anatomical Region Laterality Modality Breast Bilateral Mammography Narrative 04/22/2024 4:59 PM TRUCK REPAIR SUPERVISOR Mammogram Technique: Bilateral Digital Breast Tomosynthesis, Bilateral C-view 2D Screening mammogram. ??Views obtained: ??bilateral craniocaudal and bilateral mediolateral oblique. ??Computer Aided Detection was performed. Mammogram Findings: The present examination has been compared to prior imaging studies performed at [facility] on 04/15/2022, 04/20/2023 and 05/05/2023. There are [...] compared to prior imaging studies performed at [facility] on 04/15/2022, 04/20/2023 and 05/05/2023. There are scattered areas of fibroglandular density. There is no suspicious abnormality in either breast. Impression: There is no mammographic evidence of malignancy. Clinical follow-up for diffuse bilateral breast pain is recommended. Annual screening mammography is recommended. OVERALL FINAL ASSESSMENT: BI-RADS CATEGORY 1: Negative. us Self Screening Mammogram IMG MAMMO PROCEDURES Fi nal Result documented in this encounter Visit Diagnoses Diagnosis Screening mammogram, encounter for documented in this encounter Care Teams Melter Supervisor Oxygen Furnace Relationship Specialty Start Date End Date Leticia Thorne NP [address] [place] [address] PCP - General Family Medicine 02/20/24 Odilon Chester MD [address] [facility] [address] [place] [address] Referring Physician Gastroenterology 06/06/23 Roosevelt Thomas MD [address] [facility] [place] [address] Fellow Pulmonary Disease 06/06/23 documented as of this encounter
--- OUTSIDE RECORDS SUMMARY | 2024-05-20 13:06 | XMS_ITS | Encounter Summary ---
Author Organization [facility] Address [address] [place] [address] Phone Care Team Providers Care Necktie Centralizing Machine Operator Name Role Phone Odilon Chester MD Unavailable [phone] Roosevelt Thomas MD Unavailable [phone] Leticia Thorne DIRECTOR OF ONCOLOGY Primary Care Provider [phone] Encounter Details Date Type Department Care Team (Late st Contact Info) Description 04/05/2024 Telephone [facility] Gasteroenterology [address] [facility] Medicine [address]th [place] [address] [place] [address] Betina Gage NP [address] [place] [address] Social History Tobacco Use Types Packs/Day Years [...] on file Legal Sex Female 2:22 AM SEALING AND CANCELING MACHINE OPERATOR Gender Identity Female 05/18/2019 7:17 PM SEALING AND CANCELING MACHINE OPERATOR Sexual Orientation Straight 05/18/2019 7: 17 PM SEALING AND CANCELING MACHINE OPERATOR documented as of this encounter Ordered Prescriptions Prescription Sig Dispense Quantity Refills Last Filled Start Date End Date tirzepatide, weight loss, (Zepbound) 2.5 mg/0.5 mL [...] dose: 15 mg/week) 10 mL 3 04/05/2024 documented in this encounter Miscellaneous Notes * Telephone Encounter - Betina Gage NP - 04/17/2024 11:48 AM SEALING AND CANCELING MACHINE OPERATOR Per Dr Mayer: I sent her an email tonight about the trial and will follow up with her this week Sent my chart message ING AND CANCELING MACHINE OPERATOR * Telephone Encounter - Betina Gage NP - 04/10/2024 8:54 AM SEALING AND CANCELING MACHINE OPERATOR Rx not covered. Per Michelle: The denial said any medications that fall within the weightloss category are not covered with Medicare Part D benefits. Dr. Mayer - would patient qualify for any clinical trials? Thanks. ING AND CANCELING MACHINE OPERATOR * Telephone Encounter - Betina Gage NP - 04/05/2024 1:39 PM SEALING AND CANCELING MACHINE OPERATOR Sent rx for zepbound. Michelle - can you please inform patient that she is to contact us with any side effects? Please make her aware that she might experience nausea, vomiting, diarrhea, constipation. Please also confirm that she does not have a history of pancreatitis or thyroid cancer. Thanks so much. I'd like to see herin 3 months in clinic. ING AND CANCELING MACHINE OPERATOR * Telephone Encounter - Betina Gage NP - 04/05/2024 1:20 PM SEALING AND CANCELING MACHINE OPERATOR ----- Message from Nurse Sharee Merchant sent at 04/05/2024 1:09 PM SEALING AND CANCELING MACHINE OPERATOR ----- Wegovy, Zepbound, or saxenda are all FDA approved for weight loss ----- Message ----- From: Betina Gage NP Sent: 04/05/2024 12:37 PM SEALING AND CANCELING MACHINE OPERATOR To: Sharee Berman RN Would I Need to prescribe wegovy or zepbound if no diagnosis of diabetes? I forgot. Thanks! ----- Message ----- From: Sharee Berman RN Sent: 04/05/2024 10:38 AM SEALING AND CANCELING MACHINE OPERATOR To: Betina Gage NP Spoke to the pt and she would like to try a GLP-1. ----- Message ----- From: Betina Gage NP Sent: 04/04/2024 4:06 PM SEALING AND CANCELING MACHINE OPERATOR To: Sharee Berman RN MRI shows 1. Mild hepatic steatosis.2. Mean liver stiffness of 3.4 kilopascals (kPa). This is consistent with stage 1-2 fibrosis (2.9-3.5 kPa) Sent my chart message with result. Recommend weight loss, okay to try GLP-1 if insurance will approve. Waiting to hear back from patient as to what she prefers. If GLP 1 not approved, will start vit E supplementation. ING AND CANCELING MACHINE OPERATOR documented in this encounter Plan of Treatment Not on file documented as of this encounter Visit Diagnoses Diagnosis Metabolic dysfunction-associated steatohepatitis (MASH)- Primary Class 3 severe obesity with serious comorbidity and body mass index (BMI) of 40.0 to 44.9 in adult, unspecified obesity type (HCC) documented in this encounter Care Teams Necktie Centralizing Machine Operator Relationship Specialty Start Date End Date Leticia Thorne, DIRECTOR OF ONCOLOGY [address] [place] [address] PCP - General Family Medicine 02/20/24 Odilon Chester MD [address] [facility] [place] [address] Referring Physician Gastroenterology 06/06/23 Roosevelt Thomas MD [address] [facility] [place] [address] Fellow Pulmonary Disease 06/06/23 documented as of this encounter
--- OUTSIDE RECORDS SUMMARY | 2024-05-20 13:06 | XMS_ITS | Encounter Summary ---
Author Organization [facility] Address [address] [place] [address] Phone Care Team Providers Care Casino Banker Name Role Phone Bj Montaño MD Primary Care Provider [phone] Odilon Chester MD Unavailable [phone] Roosevelt Thomas MD Unavailable [phone] Reason for Referral * Consultation (Routine) - Pending Review Specialty Diagnoses / Procedures Referred By Contac t Referred To Contact Orthotics Diagnoses Right foot [place] [address] [place] [id number] Phone: tel: fax: External Order Referral ID Status Reason Start Date Expiration Date Visits Requested Visits Authorized [id number] Pending Review Specialty Services Required 09/21/2023 10/20/2024 1 1 Question Answer Please select the performing region: External Order [171] # of visits: 1 Comments Resource O&P Left achilles tendinitis pes planovalgus posterior tibial tendinitis Foot orthosis OTC arch support * Consultation (Routine) - Pending Review Specialty Diagnoses / Procedures Referred By Contac t Referred To Contact Orthotics Diagnoses Right [place] [address] [place] [id number] Phone: tel: fax: [address] [place] [address] Phone: tel: fax: Referral ID Status Reason Start Date Expiration Date Visits Requested Visits Authorized [id number] Pending Review Specialty Services Required 09/21/2023 10/20/2024 1 1 Question Answer Please select the performing region: External Order [171] To loc/pos DianDian [[id number]] # of visits: 1 Comments Bilateral TCI Duplicate current orthotics Right achilles tendinitis /posterior tib tendinitis pes planovalgus * Diagnostic Imaging (Routine) - Pending Review Specialty Diagnoses / Procedures Referred By Sisi de león Referred To Contact Diagnoses Left foot pain Procedures XR Foot Left 3 [place] [address] [place] [address] Phone: tel: fax: [place] [address] [place] [address] Referral ID Status Reason Start Date Expiration Date V isits Requested Visits Authorized [id number] Pending Review 09/12/2023 10/11/2024 1 1 Encounter Details Date Type Department Care Team (Late st Contact Info) Description 09/21/2023 10:45 AM CDT Office Visit [facility] [address] [facility] Medical Office Building [address] [place] [id number] [place] [address] [place] [address] Right foot pain (Primary Dx); Left foot pain Social History Tobacco Use Types Packs/Day Years Used Date Smoking Tobacco: Never Smokeless Tobacco: Never Alcohol Use Standard Drinks/Week Comments Not Currently 0 (1 standard drink = 0.6 oz pur e alcohol) AUDIT-C Answer Date Recorded Q1: How often do you have a drink containing alc ohol? Never 07/12/2023 Average Number of Drinks Not on file 024 Frequency of Binge Drinking Not on file 06/16 Personal Safety Answer Date Recorded Have you ever been in or are you currently in a harmful physical or emotional relationship or is someone making you feel afraid or unsafe? Denies 07/12/2023 Comments No Sex and Gender Information Value Date Recorded Sex Assigned at Not on file Legal Sex Female 2:22 AM DOCUMENT CONTROL CLERK Gender Identity Female 05/18/2019 7:17 PM DOCUMENT CONTROL CLERK Sexual Orientation Straight 05/18/2019 7: 17 PM DOCUMENT CONTROL CLERK documented as of this encounter Last Filed Vital Signs Vital Sign Reading Time Taken Comments Blood Pressure - - Pulse - - Temperature - - Respiratory Rate - - Oxygen Saturation - - Inhaled Oxygen Concentration - - Weight 132 kg (291 lb) 09/21/2023 10:20 AM CDT Height 177.8 cm (5' 10 ) 09/21/2023 10:20 AM CDT Body Mass Index 41.75 09/21/2023 10:20 AM CDT documented in this encounter Progress Notes * Miguel Bryson, JAVA LEAD ARCHITECT - 09/21/2023 10:45 AM CDT RETURN PATIENT VISIT INTERIM HISTORY The patient is here for follow-up of her left ankle. She is in need of new orthotics. Hers are several years old. She has overall been doing well. No new injury. She has a history of Achilles tendinopathy with enthesitis and retrocalcaneal bursitis. She has a history of posterior tib tendinopathy. The orthotics worked very well for her. No new injury. She does stretching exercises, ice and Salonpas patches which are very helpful. She has a heel lift for the shoe. PHYSICAL EXAMINATION On physical exam she is alert and oriented x3. Skin exam reveals no rashes, lesions or ulcers. Sensation is intact to light touch. She has intact dorsiflexion, plantar flexion, inversion and eversion. Ankle strength is 5/5. She has mild tenderness to palpation at the insertion of the Achilles tendon. Mild thickening. Minimal swelling. No redness or bruising. No gaps or bulges in the tendon. No tenderness through the posterior tib tendon today. On standing exam she has bilateral pes planovalgus REVIEW OF X-RAYS/STUDIES I have ordered bilateral foot x-ray and personally reviewed the images. My independent interpretation is no acute fracture of the right or left foot. There is bilateral plantar calcaneal spur. On theleft there is extensive Achilles tendon enthesophyte which has progressed from previous films. MRI of the left ankle hindfoot dated May 19, 2021 was reviewed and shows mild insertional posterior tib tendinopathy without tear. There is a chronic sprain of the deltoid with heterotopic ossification. There is mild tendinopathy of the peroneus brevis and longus without tear. Syndesmosis and syndesmotic ligaments are intact. Anterior talofibular, calcaneofibular and posterior talofibular ligaments are intact. There is severe distal Achilles tendinopathy involving the distal 5 cm of the tendon with enthesitis and heterotopic ossification at the insertion. There is retro Achilles bursitis. There is mucoid degeneration versus small partial thickness tear at the Achilles tendon insertion measuring 3 x 4 mm. There is severe retrocalcaneal bursitis. There is an osteochondral lesion of the posterior medial talar dome measuring 11 x 7 mm without unstable in situ fragment. There is likely intraosseous ganglion in the fourth metatarsal base. There is soft tissue swelling about the ankle most pronounced laterally. IMPRESSION/DIAGNOSIS History of left Achilles tendonitis with enthesitis, heterotopic ossification, mucoid degeneration or small intrasubstance tear and severe retrocalcaneal bursitis History of left posterior tib tendinopathy TREATMENT/PLAN We discussed treatment options in the office today. She is in need of new orthotics. I wrote her a prescription today. She is done very well with the current type of Cork base orthotics she has. She can continue with the home exercises. She can continue ice and Salonpas patches. She can try topical Voltaren gel. She should avoid shoes that rub the back of the heel. We will leave follow-up open-ended. She is agreeable with the plan. All her questions were answered today. FOLLOW UP As needed I was in collaboration with Dr. Subramanian today. Miguel Bryson, RN,BSN, MSN, ELIGIBILITY CONSULTANT, PULMONOLOGIST/INTENSIVIST-C, in collaborative practice with Dr. Jarred Dempsey and Dr. Jordon Subramanian Nurse Practitioner, Foot and Ankle Service [facility]. This is ANNA Dickey dictating using Fluency Direct Software Program. Casino Cashier variances may occur. documented in this encounter Plan of Treatment Scheduled Referrals Name Type Priority Associated Diagnoses Order Schedule Ambulatory referral to Orthotics Outpatient Referral Routine Right foot pain Left foot pain Expected: 10/05/2023 (Approximate), Expires: 09/20/2024 Ambulatory referral to Hair Assistant Outpatient Referral Routine Right foot pain Left foot pain Expected: 10/05/2023 (Approximate), Expires: 09/20/2024 documented as of this encounter Results * XR Foot Left 3 or More Views (09/21/2023 10:14 AM CDT) Anatomical Region Laterality Modality Lower Extremities, Foot Left Computed Radiography 09/21/2023 11:3 2 AM CDT Impressions 09/21/2023 12:57 PM CDT Left greater than right Achilles tendon insertion calcaneal enthesophytes with fragmentation and soft tissue thickening on the left. Dictated by: Bhumika Bassett M.D. The radiology attending physician has personally reviewed this study, and had reviewed and/or edited this written report and agrees with it. Electronically signed by: Hussain Andrade MD Narrative 09/21/2023 12:57 PM CDT EXAMINATION: XR FOOT LEFT 3 OR MORE VIEWS, XR FOOT RIGHT 3 OR MORE VIEWS HISTORY: Bilateral foot pain COMPARISON: Left foot MRI of 05/19/2021. ??Radiograph on 05/05/2021 FINDINGS: 3 views of both feet are obtained LEFT FOOT: Extensive Achilles tendon enthesophyte is progressed from 05/05/2021. ??Moderate plantar calcaneal spur. ??Heterotopic ossification along the dorsal talonavicular capsule. ??Mild tibiotalar joint osteoarthritis. ??No acute fracture. ??Normal joint alignment. Diffuse soft tissue edema about the lower calf. RIGHT FOOT: Small Achilles tendon enthesophyte. ??Small plantar calcaneal spur. ??Heterotopic ossification along the dorsal talonavicular joint. ??Mild tibiotalar and subtalar joint osteoarthritis. ??No acute fracture. Diffuse soft tissue swelling about the lower calf. Mild pes planus. Procedure Note Hussain Andrade MD - 09/21/2023 EXAMINATION: XR FOOT LEFT 3 OR MORE VIEWS, XR FOOT RIGHT 3 OR MORE VIEWS HISTORY: Bilateral foot pain COMPARISON: Left foot MRI of 05/19/2021. Radiograph on 05/05/2021 FINDINGS: 3 views of both feet are obtained LEFT FOOT: Extensive Achilles tendon enthesophyte is progressed from 05/05/2021. Moderate plantar calcaneal spur. Heterotopic ossification along the dorsal talonavicular capsule. Mild tibiotalar joint osteoarthritis. No acute fracture. Normal joint alignment. Diffuse soft tissue edema about the lower calf. RIGHT FOOT: Small Achilles tendon enthesophyte. Small plantar calcaneal spur. Heterotopic ossification along the dorsal talonavicular joint. Mild tibiotalar and subtalar joint osteoarthritis. No acute fracture. Diffuse soft tissue swelling about the lower calf. Mild pes planus. IMPRESSION: Left greater than right Achilles tendon insertion calcaneal enthesophytes with fragmentation and soft tissue thickening on the left. Dictated by: Bhumika Bassett M.D. The radiology attending physician has personally reviewed this study, and had reviewed and/or edited this written report and agrees with it. Electronically signed by: Hussain Andrade MD Miguel Bryson JAVA LEAD ARCHITECT IMG XR PROCEDURES Final Re sult * XR Foot Right 3 or More Views (09/21/2023 10:14 AM CDT) Anatomical Region Laterality Modality Lower Extremities, Foot Right Computed Radiography 09/21/2023 11:3 2 AM CDT Impressions 09/21/2023 12:57 PM CDT Left greater than right Achilles tendon insertion calcaneal enthesophytes with fragmentation and soft tissue thickening on the left. Dictated by: Bhumika Bassett M.D. The radiology attending physician has personally reviewed this study, and had reviewed and/or edited this written report and agrees with it. Electronically signed by: Hussain Andrade MD Narrative 09/21/2023 12:57 PM CDT EXAMINATION: XR FOOT LEFT 3 OR MORE VIEWS, XR FOOT RIGHT 3 OR MORE VIEWS HISTORY: Bilateral foot pain COMPARISON: Left foot MRI of 05/19/2021. ??Radiograph on 05/05/2021 FINDINGS: 3 views of both feet are obtained LEFT FOOT: Extensive Achilles tendon enthesophyte is progressed from 05/05/2021. ??Moderate plantar calcaneal spur. ??Heterotopic ossification along the dorsal talonavicular capsule. ??Mild tibiotalar joint osteoarthritis. ??No acute fracture. ??Normal joint alignment. Diffuse soft tissue edema about the lower calf. RIGHT FOOT: Small Achilles tendon enthesophyte. ??Small plantar calcaneal spur. ??Heterotopic ossification along the dorsal talonavicular joint. ??Mild tibiotalar and subtalar joint osteoarthritis. ??No acute fracture. Diffuse soft tissue swelling about the lower calf. Mild pes planus. Procedure Note Hussain Andrade MD - 09/21/2023 EXAMINATION: XR FOOT LEFT 3 OR MORE VIEWS, XR FOOT RIGHT 3 OR MORE VIEWS HISTORY: Bilateral foot pain COMPARISON: Left foot MRI of 05/19/2021. Radiograph on 05/05/2021 FINDINGS: 3 views of both feet are obtained LEFT FOOT: Extensive Achilles tendon enthesophyte is progressed from 05/05/2021. Moderate plantar calcaneal spur. Heterotopic ossification along the dorsal talonavicular capsule. Mild tibiotalar joint osteoarthritis. No acute fracture. Normal joint alignment. Diffuse soft tissue edema about the lower calf. RIGHT FOOT: Small Achilles tendon enthesophyte. Small plantar calcaneal spur. Heterotopic ossification along the dorsal talonavicular joint. Mild tibiotalar and subtalar joint osteoarthritis. No acute fracture. Diffuse soft tissue swelling about the lower calf. Mild pes planus. IMPRESSION: Left greater than right Achilles tendon insertion calcaneal enthesophytes with fragmentation and soft tissue thickening on the left. Dictated by: Bhumika Bassett M.D. The radiology attending physician has personally reviewed this study, and had reviewed and/or edited this written report and agrees with it. Electronically signed by: Hussain Andrade MD Miguel Bryson JAVA LEAD ARCHITECT IMG XR PROCEDURES Final Re sult documented in this encounter Visit Diagnoses Diagnosis Right foot pain- Primary Pain in soft tissues of limb Left foot pain Pain in soft tissues of limb Left foot pain Pain in soft tissues of limb Right foot pain Pain in soft tissues of limb documented in this encounter Care Teams Casino Banker Relationship Specialty Start Date End Date Bj Montaño MD PCP - General Family Medicine 04/15/22 02/19/24 Odilon Chester MD [address] [facility] [place] [address] Referring Physician Gastroenterology 06/06/23 Roosevelt Thomas MD [address] [facility] [place] [address] Fellow Pulmonary Disease 06/06/23 documented as of this encounter
--- OUTSIDE RECORDS SUMMARY | 2024-05-20 13:06 | XMS_ITS | Encounter Summary ---
Author Organization [facility] Address [address] [place] [address] Phone Care Team Providers Care Real Estate Branch Manager Name Role Phone Bj Montaño MD Primary Care Provider [phone] Odilon Chester MD Unavailable [phone] Roosevelt Thomas MD Unavailable [phone] Encounter Details Date Type Department Care Team (Late st Contact Info) Description 07/27/2023 Telephone [facility] Neuro Sleep [address] [facility] 6th [address] [place] [address] Cici Cowan MA Social History Tobacco Use Types Packs/Day Years [...] on file Legal Sex Female 2:22 AM TWINE REELING MACHINE OPERATOR Gender Identity Female 05/18/2019 7:17 PM TWINE REELING MACHINE OPERATOR Sexual Orientation Straight 05/18/2019 7: 17 PM TWINE REELING MACHINE OPERATOR documented as of this encounter Miscellaneous Notes * Telephone Encounter - Cici Cowan MA - 07/27/2023 10:33 AM CDT [facility] requested DME Order with settings. Order faxed to [facility]. -------Fax Transmission Report------- To: Recipient at [phone] Subject: Requested Order Result: The transmission was successful. Explanation: All Pages Ok Pages Sent: 2 Connect Time: 1 minutes, 32 seconds Transmit Time: 07/27/2023 10:18 Transfer Rate: 9600 Status Code: 0000 Retry Count: 0 Job Id: [id number] Unique Id: [id number] Fax Line: 12 Fax Rough Rounder Machine: [id number] documented in this encounter Plan of Treatment Not on file documented as of this encounter Visit Diagnoses Not on filedocumented in this encounter Care Teams Real Estate Branch Manager Relationship Specialty Start Date End Date Bj Montaño MD PCP - General Family Medicine 04/15/22 02/19/24 Odilon Chester MD [address] [facility] [place] [address] Referring Physician Gastroenterology 06/06/23 Roosevelt Thomas MD [address] [facility] [place] [address] Fellow Pulmonary Disease 06/06/23 documented as of this encounter
--- OUTSIDE RECORDS SUMMARY | 2024-05-20 13:06 | XMS_ITS | Encounter Summary ---
Author Organization [facility] Address [address] [place] [address] Care Team Providers Care Drift Miner Name Role Phone Bj Montaño MD Primary Care Provider [phone] Odilon Chester MD Unavailable [phone] Roosevelt Thomas MD Unavailable [phone] Reason for Referral * Diagnostic Imaging (Routine) - Pending Review Specialty Diagnoses / Procedures Referred By Contac t Referred To Contact Diagnoses Left foot pain Procedures XR Foot Left 3 [place] [address] [place] [address] Phone: tel: fax: [address] [address] Referral ID Status Reason Start Date Expiration Date V isits Requested Visits Authorized [id number] Pending Review 09/12/2023 10/11/2024 1 1 Reason for Visit * Diagnostic Imaging (Routine) - Pending Review Specialty Diagnoses / Procedures Referred By Contac t Referred To Contact Diagnoses Left foot pain Procedures XR Foot Left 3 [place] [address] [place] [address] Phone: tel: fax: [address] [place] [address] Referral ID Status Reason Start Date Expiration Date V isits Requested Visits Authorized [id number] Pending Review 09/12/2023 10/11/2024 1 1 Encounter Details Date Type Department Care Team (Latest Contact Info) Description 09/21/2023 10:00 AM CDT - 09/21/2023 11:59 PM CDT Hospital Encounter [facility] [address] [facility] [address] [place] [id number] Left foot pain; Right foot pain Discharge Disposition: Discharge to home [...] on file Legal Sex Female 2:22 AM CARD ROOM MANAGER Gender Identity Female 05/18/2019 7:17 PM CARD ROOM MANAGER Sexual Orientation Straight 05/18/2019 7: 17 PM CARD ROOM MANAGER documented as of this encounter Medications at Time of Discharge ALPRAZolam (XANAX) 0.25 mg tablet Take 1 tablet (0.25 mg total) by mouth 3 (three) times a day as needed for anxiety azelaic acid 15 % gel APPLY TOPICALLY TO THE AFFECTED AREA TWICE DAILY 11/18/2022 budesonide-formo teroL (SYMBICORT) 160-4.5 mcg/actuation inhalerIndicatio ns:Maintenance Therapy for Asthma Inhale 2 puffs 2 (two) times a day Rinse mouth with water after use. Do not swallow. 1 each 3 11/24/2022 cholecalciferol (Vitamin D3) 2000 unit capsule 1 capsule (2,000 Units total) dicyclomine (BENTYL) 20 mg tabletIndication s:Irritable Bowel Syndrome Take 1 tablet (20 mg total) by mouth 3 (three) times a day as needed (abdominal cramping and diarrhea) 90 tablet 11 08/24/2023 5 losartan-hydroCH LOROthiazide (HYZAAR) 50-12.5 mg per tablet 1/2 tab am 10/14/2020 SUMAtriptan (IMITREX) 100 mg tablet ondansetron (ZOFRAN) 4 mg tablet Take 1 tablet (4 mg total) by mouth 3 (three) times a day 20 tablet 08/24/2023 4 CALCIUM-MAGNESIU M-ZINC ORAL 4 cetirizine (ZyrTEC) 10 mg tablet Take 1 tablet (10 mg total) by mouth as needed for allergies 4 omeprazole (PriLOSEC) 40 mg capsule Take 1 capsule (40 mg total) by mouth 2 (two) times a day 60 capsule 3 08/24/2023 4 psyllium husk (METAMUCIL ORAL) Take 6 Caplet by mouth every morning 6 caps am 4 soy isofla/blk cohosh/mag bark (ESTROVEN ORAL) Take by mouth Unsure med dosage every day hs 4 venlafaxine 225 mg tablet extended release 24hr 24 hr tablet 05/12/2022 4 documented as of this encounter Discharge Disposition Disposition Code Departure Means Destination Discharge to home or self care documented in this encounter Plan of Treatment Not on file documented as of this encounter Procedures Procedure Name Priority Date/Time Associated Diagnosis Comments XR FOOT RIGHT 3 OR MORE VIEWS Schedule Routine, Read Routine (OP Routine) 09/21/2023 10:14 AM CDT Right foot pain XR FOOT LEFT 3 OR MORE VIEWS Schedule Routine, Read Routine (OP Routine) 09/21/2023 10:14 AM CDT Left foot pain documented in this encounter Results * XR Foot Right 3 or More [...] and agrees with it. Electronically signed by: MD Gavi Gonsalez 09/21/2023 12:57 PM CDT EXAMINATION: XR FOOT [...] it. Electronically signed by: Hussain Andrade MD us Miguel Bryson MARKING MACHINE OPERATOR IMG XR PROCEDURES Final Re sult * XR Foot Left 3 or More [...] it. Electronically signed by: Hussain Andrade MD [facility] 09/21/2023 12:57 PM CDT EXAMINATION: XR FOOT [...] signed by: Hussain Andrade MD Miguel Bryson MARKING MACHINE OPERATOR IMG XR PROCEDURES Final Re sult documented in this encounter Visit Diagnoses Diagnosis Left foot pain Pain in soft tissues of limb Right foot pain Pain in soft tissues of limb documented in this encounter Care Teams Drift Miner Relationship Specialty Start Date End Date Bj Montaño MD PCP - General Family Medicine 04/15/22 02/19/24 Odilon Chester MD 1 [facility] [place] [address] Referring Physician Gastroenterology 06/06/23 Roosevelt Thomas MD 1 [facility] [place] [address] Fellow Pulmonary Disease 06/06/23 documented as of this encounter
--- OUTSIDE RECORDS SUMMARY | 2024-05-20 13:06 | XMS_ITS | Encounter Summary ---
Author Organization [facility] School of [facility] Address [address] [place] [address] Phone Care Team Providers Care Editor Dictionary Name Role Phone Bj Montaño MD Primary Care Provider [phone] Odilon Chester MD Unavailable [phone] Roosevelt Thomas MD Unavailable [phone] Reason for Referral * Procedure (Routine) - Pending Review Specialty Diagnoses / Procedures Referred By Sisi de león Referred To Contact Diagnoses Dyspnea on exertion Procedures Pulmonary Function Test -[facility] Adult PFT Lab- [facility]; Spirometry Stephani James NP [address] [place] [address] Phone: tel: fax: Referral ID Status Reason Start Date Expiration Date V isits Requested Visits Authorized [id number] Pending Review 12/29/2023 01/27/2025 1 1 * Consultation (Routine) - Authorized Specialty Diagnoses / Procedures Referred By Contac sarthak Referred To Contact Allergy Diagnoses Dyspnea on exertion Stephani James NP [address] [place] [address] Phone: tel: fax: [facility] (All Locations) Referral ID Status Reason Start Date Expiration Date Visits Requested Visits Authorized [id number] Authorized Specialty Services Required 12/29/2023 01/27/2025 25 25 Question Answer Please select the performing region: [facility] (All Locations) [167] # of visits: 1 Reason for Visit * Procedure (Routine) - Authorized Specialty Diagnoses / Procedures Referred By Contac t Referred To Contact Diagnoses Dyspnea on exertion Procedures Pulmonary Function Test -[facility] Adult PFT [facility]- [facility]-8D; Meth Challenge Stephani James NP [address] [place] [address] Phone: tel: fax: [facility] (All Locations) Referral ID Status Reason Start Date Expiration Date V isits Requested Visits Authorized [id number] Authorized 12/20/2023 01/18/2025 99 99 Encounter Details Date Type Department Care Team (Late st Contact Info) Description 12/29/2023 11:00 AM CDT Office Visit [facility] Pulmonary [address] [facility] 8th [place] [address] [place] [address] Stephani James NP [address] [place] [address] Dyspnea on exertion (Primary Dx); Morbid obesity with body mass index (BMI) of 40.0 to 49.9 (HCC); Ankle edema; Sinus congestion; DON (obstructive sleep apnea) Social History Tobacco Use Types Packs/Day Years [...] on file Legal Sex Female 2:22 AM BARGEMAN Gender Identity Female 05/18/2019 7:17 PM BARGEMAN Sexual Orientation Straight 05/18/2019 7: 17 PM BARGEMAN documented as of this encounter Last Filed Vital Signs Vital Sign Reading Time Taken Comments Blood Pressure 120/75 12/29/2023 10:47 AM CDT Pulse 70 12/29/2023 10:47 AM CDT Temperature 36.3 ??C (97.3 ??F) 12/29/2023 10:47 AM C DT Respiratory Rate 18 12/29/2023 10:47 AM CDT Oxygen Saturation 97% 12/29/2023 10:47 AM CDT Inhaled Oxygen Concentration - - Weight 130.6 kg (288 lb) 12/29/2023 10:47 AM CDT Height 177.8 cm (5' 10 ) 12/29/2023 10:47 AM CDT Body Mass Index 41.32 12/29/2023 10:47 AM CDT documented in this encounter Progress Notes * Stephani James, GEORGETTE - 12/29/2023 11:[address] [facility], PULMON[facility], [address] [place] [address], 8TH FLOOR, [facility], [address] [place] [address] PATIENT NAME: Josy Fiore : 1960 PETER: 12/29/2023 PROBLEM LIST: 1. COVID 06/2022, 12/2023 2. BMI 41 3. Anxiety, depression 4. Hypertension 5. GERD 6. Nonalcoholic fatty liver disease 7. Recurrent sinus infections, status post sinus surgery during childhood 8. Diverticulitis s/p colectomy 9. Seasonal allergies INTERVAL HISTORY: Josy Fiore is a 63 y.o. female former patient of Dr. Thomas with hx COVID, arthritis, diverticulitis, HTN, NAFLD, migraines returns for follow-up today, last seen in the clinic on 06/06/2023. At that time, the patient was recovering from a respiratory infection had residual sinus congestion, drainage, mild dry cough, and shortness of breath on exertion. PFTs were stable. She reported sensitivity to smells and notes nasal drainage and cough with strong odors. She was using Symbicort prn. Today Josy presents in clinic after having tested positive for COVID-19 seven days ago. She completed Paxlovid yesterday and today reports mild sinus congestion, runny nose with yellow drainage, shortness of breath on exertion. She follows with Sleep Medicine and wears her CPAP nightly. Her sleep study noted restless leg syndrome and recommended discontinuing Effexor. She is titrating it down and will start Gabapentin when she is finished. She last used Symbicort last week when she was on vacation. Reports that humidity, odors, and outdoor pollen will affect her breathing. Denies fever, chills, headache, dizziness, sore throat, cough, chest pain, nausea, GERD, and edema. She is up to date on immunizations. ALLERGIES: Enoxaparin, Penicillins, Inapsine (Droperidol) MEDICATIONS: venlafaxine (EFFEXOR) 37.5 mg tablet Take 1 tablet po daily ALPRAZolam (XANAX) 0.25 mg tablet Take 1 tablet po tid prn budesonide-formoteroL (SYMBICORT) Inhale 2 puffs bid cholecalciferol (Vitamin D3) 2000 unit Take 1 tablet po daily dicyclomine (BENTYL) 20 mg tablet Take 1 tablet po bid prn gabapentin (NEURONTIN) 100 mg capsule Take 1 tablet po nightly losartan-hydroCHLOROthiazide (HYZAAR) Take 1/2 tablet po daily omeprazole (PriLOSEC) 20 mg capsule Take 1 tablet po bid SUMAtriptan (IMITREX) 100 mg tablet Take 1 tablet po daily prn IMMUNIZATIONS: Up to date on COVID-19, Shingles, Tdap, RSV, Pneumococcal Review of Systems: All systems are reviewed and negative except as above in Interval History. Objective VITALS: 120/75; P 70; RR 18; 97.3F; 97% room air; 288 pounds; 5'10 ; BMI 41.3 Wt Readings from Last 3 Encounters: 12/29/23 130.6 kg (288 lb) 11/23/23 131.5 kg (290 lb) 10/24/23 132 kg (291 lb) Physical Exam: General: Cooperative female sitting in no acute distress. HEENT: Normocephalic, atraumatic. Neck: Trachea midline. Chest: Symmetric expansion. Lungs: Nonlabored breathing. Clear to auscultation bilaterally with no wheezes Heart: Regular rate and rhythm. S1, S2. Abdomen: Benign Extremities: Mild ankle edema Neurologic: Grossly nonfocal. Alert and oriented x3. Skin: Warm and dry. No rash on exposed skin. Musculoskeletal: No obvious joint deformity. Moves all extremities. Psychiatric: Euthymic. PULMONARY FUNCTIONS TESTING DATA: DATA REVIEW: Spirometry: date FVC (L), % FEV1 (L), % FEV1/FVC (%) 12/29/2023 3.45, 94% 2.79, 99% 81% 06/06/2023 3.37, 91% 2.72, 96% 81% 11/24/2022 3.48, 93% 2.78, 96% 80% IMPRESSION & PLAN Josy Fiore is a pleasant 63 y.o. female with pmh COVID, arthritis, diverticulitis, HTN, NAFLD, migraines tested positive for COVID-19 seven days ago. She completed Paxlovid yesterday and today reports mild sinus congestion, runny nose with yellow drainage, shortness of breath on exertion. Followedwith Sleep Medicine, compliant with CPAP nightly and has new diagnosis of RLS. Will start gabapentin as soon as she is able to stop taking Effexor. Spirometry shows no ventilatory defect. Methacholine challenge negative for asthma. She is up to date on immunizations. Methacholine challenge negative for asthma, Referred to Allergy & Immunology for sensitivity to odors and pollen Shortness of breath on exertion: Continue Symbicort p.r.n. DON: follows with Sleep Medicine and wears her CPAP nightly. RTC in 6 months, Dr Stef barajas Physician Discussion: Patient's questions and concerns were discussed and answered. Patient will return to clinic in 6 months for follow-up unless more immediate concerns present. I have seen and examined the patient. My total encounter time on 12/29/2023 was 35 minutes which was spent in the activities documented in the note. This includes time spent prior to the visit and after the visit in direct care of the patient. This time does not include time spent in any separatelyreportable services. Stephani James, DNP, WRAPPER LAYER, AGACNP-BC, CCRN Nurse Practitioner [facility] Department of Medicine Pulmonary and Critical Care [facility] Cosigned by Maxim Tan MD at 12/29/2023 2:19 PM CDT documented in this encounter Plan of Treatment Scheduled Orders Name Type Priority Associated Diagnoses Orde r Schedule Pulmonary Function Test -[facility] Adult PFT [facility]- [facility]; Spirometry PFT Routine Dyspnea on exertion Expected: 06/30/2024, Expires: 12/28/2024 XR Chest Pa Lateral 2 Views Imaging Schedule Routine, Read Routine (OP Routine) Dyspnea on exertion Expected: 06/30/2024, Expires: 12/28/2024 Scheduled Referrals Name Type Priority Associated Diagnoses Order Schedule Ambulatory referral to Allergy Outpatient Referral Routine Dyspnea on exertion Expected: 01/12/2024 (Approximate), Expires: 12/28/2024 documented as of this encounter Visit Diagnoses Diagnosis Dyspnea on exertion- Primary Other dyspnea and respiratory abnormality Morbid obesity with body mass index (BMI) of 40.0 to 49.9 (HCC) Ankle edema Edema Sinus congestion Other diseases of nasal cavity and sinuses DON (obstructive sleep apnea) Obstructive sleep apnea (adult) (pediatric) documented in this encounter Discontinued Medications Medication Sig Discontinue Reason Start Date End Da te Paxlovid tablets,dose pack tablets in a dose pack TK 2 NIRMATRELVIR TS AND 1 RITONAVIR T TOGETHER PO 12/23/2023 12/29/2023 venlafaxine XR (EFFEXOR-XR) 75 mg 24 hr capsule Take 1 capsule (75 mg total) by mouth daily 11/25/2023 12/29/2023 documented as of this encounter Historical Medications * This list may reflect changes made after this encounter. venlafaxine XR (EFFEXOR-XR) 75 mg 24 hr capsule Take 1 capsule (75 mg total) by mouth daily 11/25/2023 venlafaxine (EFFEXOR) 37.5 mg tablet 12/27/2023 4 Paxlovid tablets,dose pack tablets in a dose pack TK 2 NIRMATRELVIR TS AND 1 RITONAVIR T TOGETHER PO 12/23/2023 4 added in this encounter Care Teams Editor Dictionary Relationship Specialty Start Date End Date Bj Montaño MD PCP - General Family Medicine 04/15/22 02/19/24 Odioln Chester MD 1 [facility] [place] [address] Referring Physician Gastroenterology 06/06/23 Roosevelt Thomas MD 1 [facility] [place] [address] Fellow Pulmonary Disease 06/06/23 documented as of this encounter
--- OUTSIDE RECORDS SUMMARY | 2024-05-20 13:06 | XMS_ITS | Encounter Summary ---
Author Organization [facility] Healthcare Address [address] [place] [address] Care Team Providers Care Rn Security Name Role Phone Bj Montaño MD Primary Care Provider [phone] Odilon Chester MD Unavailable [phone] Roosevelt Thomas MD Unavailable [phone] Reason for Referral * Diagnostic Imaging (Routine) - Pending Review Specialty Diagnoses / Procedures Referred By Sisi de león Referred To Contact Diagnoses Elevated LFTs Procedures US Cathi Leggett PA [address] [place] [address] Phone: tel:[phone] fax: [address] [address] Referral ID Status Reason Start Date Expiration Date V isits Requested Visits Authorized [id number] Pending Review 09/06/2023 10/05/2024 1 1 Reason for Visit * Diagnostic Imaging (Routine) - Pending Review Specialty Diagnoses / Procedures Referred By Contetta de león Referred To Contact Diagnoses Elevated LFTs Procedures US RUCathi Villarreal PA [address] [place] [address] Phone: tel: fax: [address] [address] Referral ID Status Reason Start Date Expiration Date V isits Requested Visits Authorized [id number] Pending Review 09/06/2023 10/05/2024 1 1 Encounter Details Date Type Department Care Team (Latest Contact Info) Description 09/08/2023 8:14 AM CDT - 09/08/2023 11:59 PM CDT Hospital Encounter [facility] [address] [place] [address] Elevated LFTs Discharge Disposition: Discharge to home or self [...] on file Legal Sex Female 2:22 AM 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 ??Limited visualization due to overlying soft tissue. ??Within those limits: 2. ??Similar-appearing mild diffuse hepatic steatosis. Dictated by: Darian Webb MD The radiology attending physician has personally reviewed this study, and had reviewed and/or edited this written report and agrees with it. Electronically signed by: Burton Dunham M.D. Narrative 09/08/2023 11:00 AM CDT EXAMINATION: ??LIMITED ABDOMINAL SONOGRAM HISTORY: ??Elevated liver enzymes COMPARISON: ??01/26/2022 FINDINGS: ?? There is limited visualization of the right hemiliver due to overlying soft tissue. Liver: The liver is normal in size. ??The echotexture cannot be assessed. ??The echogenicity is increased. There is no surface nodularity. No focal solid lesions are visualized. ?? Gallbladder: Absent. Bile Duct: The common bile duct is not visualized. Right Kidney: There is no hydronephrosis in the visualized portions of the right kidney. Pancreas: Not visualized. Procedure Note Burton Dunham MD - 09/08/2023 EXAMINATION: LIMITED ABDOMINAL SONOGRAM HISTORY: Elevated liver enzymes COMPARISON: 01/26/2022 FINDINGS: There is limited visualization of the right hemiliver due to overlying soft tissue. Liver: The liver is normal in size. The echotexture cannot be assessed. The echogenicity is increased. There is no surface nodularity. No focal solid lesions are visualized. Gallbladder: Absent. Bile Duct: The common bile duct is not visualized. Right Kidney: There is no hydronephrosis in the visualized portions of the right kidney. Pancreas: Not visualized. IMPRESSION: 1. Limited visualization due to overlying soft tissue. Within those limits: 2. Similar-appearing mild diffuse hepatic steatosis. Dictated by: Darian Webb MD The radiology attending physician has personally reviewed this study, and had reviewed and/or edited this written report and agrees with it. Electronically signed by: Burton Dunham M.D. Cathi GERONIMO IM US PROCEDURES Final Result documented in this encounter Visit Diagnoses Diagnosis Elevated LFTs Other abnormal blood chemistry documented in this encounter Care Teams Rn Security Relationship Specialty Start Date End Date Bj Montaño MD PCP - General Family Medicine 04/15/22 02/19/24 Odilon Chester MD 1 [facility] [place] [address] Referring Physician Gastroenterology 06/06/23 Roosevelt Thomas MD 1 [facility] [place] [address] Fellow Pulmonary Disease 06/06/23 documented as of this encounter
--- OUTSIDE RECORDS SUMMARY | 2024-05-20 13:06 | XMS_ITS | Encounter Summary ---
Author Organization [facility] Healthcare Address [address] [place] [address] Care Team Providers Care Creasing Machine Operator Name Role Phone Bj Montaño MD Primary Care Provider [phone] Odilon Chester MD Unavailable [phone] Roosevelt Thomas MD Unavailable [phone] Encounter Details Date Type Department Care Team (Late st Contact Info) Description 10/26/2023 11:15 AM CDT Lab [facility] Outpatient Lab at [address] [address] Avitaminosis D (Primary Dx); Iron deficiency Social History Tobacco Use Types Packs/Day Years [...] on file Legal Sex Female 2:22 AM 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 Gender Identity Female 05/18/2019 7:17 PM 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 Sexual Orientation Straight 05/18/2019 7: 17 PM 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 documented as of this encounter Plan of Treatment Not on file documented as of this encounter Visit Diagnoses Diagnosis Avitaminosis D- Primary Unspecified vitamin D deficiency Iron deficiency Disorders of iron metabolism documented in this encounter Care Teams Creasing Machine Operator Relationship Specialty Start Date End Date Bj Montaño MD PCP - General Family Medicine 04/15/22 02/19/24 Odilon Chester MD 1 [facility] [place] [address] Referring Physician Gastroenterology 06/06/23 Roosevelt Thomas MD 1 [facility] [place] [address] Fellow Pulmonary Disease 06/06/23 documented as of this encounter
--- OUTSIDE RECORDS SUMMARY | 2024-05-20 13:06 | XMS_ITS | Encounter Summary ---
Author Organization [facility] Address [address] [place] [address] Phone Care Team Providers Care After School Program Coordinator Name Role Phone Bj Montaño MD Primary Care Provider [phone] Odilon Chester MD Unavailable [phone] Roosevelt Thomas MD Unavailable [phone] Encounter Details Date Type Department Care Team (Late st Contact Info) Description 10/26/2023 Orders Only [facility] Neuro Sleep [address] [place] [address] Kanwal Ames, AMARI [address] [facility] [address] [place] [address] Social History Tobacco Use Types Packs/Day Years [...] on file Legal Sex Female 2:22 AM FUR BLOWER Gender Identity Female 05/18/2019 7:17 PM FUR BLOWER Sexual Orientation Straight 05/18/2019 7: 17 PM FUR BLOWER documented as of this encounter Ordered Prescriptions Prescription Sig Dispense Quantity Refills Last Filled Start Date End Date gabapentin (NEURONTIN) 100 mg capsuleIndications :Restless Legs Syndrome Take 1 cap nightly, and titrate up to 300 mg as needed. 90 capsule 10/26/2023 documented in this encounter Progress Notes * Kanwal Ames DNP - 10/26/2023 4:39 PM CDT This is to document that her lab including ferritin iron panel and vitamin D were normal. Will add gabapentin 100 mg nightly and titrate up to 300 mg as needed. Will follow up in 3 months. documented in this encounter Plan of Treatment Not on file documented as of this encounter Visit Diagnoses Not on filedocumented in this encounter Care Teams After School Program Coordinator Relationship Specialty Start Date End Date Bj Montaño MD PCP - General Family Medicine 04/15/22 02/19/24 Odilon Chester MD 1 [facility] [place] [address] Referring Physician Gastroenterology 06/06/23 Roosevelt Thomas MD 1 [facility] [place] [address] Fellow Pulmonary Disease 06/06/23 documented as of this encounter
--- OUTSIDE RECORDS SUMMARY | 2024-05-20 13:06 | XMS_ITS | Encounter Summary ---
Author Organization [facility] School of [facility] Address [address] [place] [address] Phone Care Team Providers Care Manager Search Name Role Phone Bj Montaño MD Primary Care Provider [phone] Odilon Chester MD Unavailable [phone] Roosevelt Thomas MD Unavailable [phone] Reason for Visit * Reason Comments Spots and/or Floaters Encounter Details Date Type Department Care Team (Late st Contact Info) Description 09/15/2023 9:00 AM CDT Office Visit [facility] Ophthalmology [address] [place] [phone] Avelino Vásquez, OD [address] [facility] [place] [address] Combined form of age-related cataract, both eyes (Primary Dx); Retinal tear of left eye; Posterior vitreous detachment, both eyes Social History Tobacco Use Types Packs/Day Years [...] on file Legal Sex Female 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 Retinal tear of left eye Current Assessment & Plan S/p retinopexy 07/2022 Doing well. Well barricaded. Reviewed strict return precautions. Posterior vitreous detachment, both eyes Current Assessment & Plan Gave strict return precautions- call if any new floaters, flashes, or curtain/veil over vision. Otherwise can follow with annual DFE. The signs and symptoms of retinal detachment, tears, infection, elevated intra- ocular pressure werereviewed with the patient. Patient knows to call should they have any of the symptoms. PLAN FOR NEXT VISIT Return in about 1 year (around 09/14/2024) for Dilated exam. documented in this encounter Miscellaneous Notes * Assessment & Plan Note - Avelino Vásquez, OD - 09/15/2023 9:34 AM CDT Associated Problem(s): Posterior vitreous detachment, both eyes Gave strict return precautions- call if any new floaters, flashes, or curtain/veil over vision. Otherwise can follow with annual DFE. * Assessment & Plan Note - Avelino Vásquez, OD - 09/15/2023 9:32 AM CDT Associated Problem(s): Retinal tear of left eye S/p retinopexy 07/2022 Doing well. Well barricaded. Reviewed strict return precautions. * Assessment & Plan Note - Avelino Vásquez, OD - 09/15/2023 9:32 AM CDT Associated Problem(s): Combined form of age-related cataract, both eyes Borderline VS OS>OD- patient is not bothered at this time. documented in this encounter Plan of Treatment Not on file documented as of this encounter Visit Diagnoses Diagnosis Combined form of age-related cataract, both eyes- Primary Retinal tear of left eye Posterior vitreous detachment, both eyes Vitreous degeneration documented in this encounter Eye Exam Visual Acuity (Snellen - Linear) Right eye Left eye Dist cc 20/20 20/30 Dist ph cc 20/25 -2 Correction: Glasses Tonometry (Applanation, 8:59 AM) Right eye Left eye Pressure 17 16 Pupils Dark Light Shape React APD Right eye 5.0 3.0 Round Brisk None Left eye 5.0 3.0 Round Brisk None Visual Wheeler (Counting fingers) Right eye Left eye Full Full Extraocular Movement Right eye Left eye Full, Ortho Full, Ortho Neuro/Psych Oriented x3: Yes Mood/Affect: Normal Dilation Both eyes: 1.0% Mydriacyl, 2 .5% Phenylephrine @ 8:59 AM External Exam Right eye Left eye External Normal Normal Slit Lamp Exam Right eye Left eye Lids/Lashes Normal Normal Conjunctiva/Sclera White and quiet White and ciro et Cornea Clear Clear Anterior Chamber Deep and quiet Deep and quiet Iris Round Round Lens tr NS, 1+ Nuclear sclerosis 1+ N uclear sclerosis, 2+ Cortical cataract, Cortical spokes Fundus Exam Right eye Left eye Posterior Vitreous PVD (Clark ring), vi t syn, Nunica's negative PVD, Vitreous syneresis Disc Normal Normal C/D Ratio 0.1 0.1 Macula Normal Normal Vessels Normal Normal Periphery Small patch of latti ce temporally , Clark ring horseshoe tear at 5 oclock far periphery s/p barricaded, Laser scar no new tears or detachments Wearing Rx Sphere Add Right eye +1.25 +2.50 Left eye +1.00 +2.50 Type: PAL Care Teams Manager Search Relationship Specialty Start Date End Date Bj Montaño MD PCP - General Family Medicine 04/15/22 02/19/24 Odilon Chester MD 1 [facility] [place] [address] Referring Physician Gastroenterology 06/06/23 Roosevelt Thomas MD 1 [facility] [place] [address] Fellow Pulmonary Disease 06/06/23 documented as of this encounter
--- OUTSIDE RECORDS SUMMARY | 2024-05-20 13:06 | XMS_ITS | Encounter Summary ---
Author Organization [facility] Address [address] [place] [address] Phone Care Team Providers Care Rivet Sorter Name Role Phone Bj Montaño MD Primary Care Provider [phone] Odilon Chester MD Unavailable [phone] Roosevelt Thomas MD Unavailable [phone] Reason for Visit * Reason Comments Sleep Apnea Follow-up * Consultation (Routine) - Closed Specialty Diagnoses / Procedures Referred By Sisi de león Referred To Contact Sleep Medicine Diagnoses DON (obstructive sleep apnea) Bj Montaño MD [facility] [address] [place] [address] Phone: tel: fax: [facility] (All Locations) Referral ID Status Reason Start Date Expiration Date V isits Requested Visits Authorized [id number] Closed Specialty Services Required 08/21/2023 09/19/2024 1 1 Encounter Details Date Type Department Care Team (Late st Contact Info) Description 10/24/2023 1:00 PM CDT Office Visit [facility] [address] [facility] [address] 6th [address] [place] [id number] Kanwal Ames DNP [address] [facility] [address] [place] [address] DON (obstructive sleep apnea) (Primary Dx); Hypersomnia; Morbid obesity with body mass index (BMI) of 40.0 to 49.9 (HCC); Vitamin D deficiency; Iron deficiency; Periodic limb movement disorder (PLMD); RLS (restless legs syndrome) Social History Tobacco Use Types Packs/Day Years [...] on file Legal Sex Female 2:22 AM RESEARCH DEVELOPMENT DIRECTOR Gender Identity Female 05/18/2019 7:17 PM RESEARCH DEVELOPMENT DIRECTOR Sexual Orientation Straight 05/18/2019 7: 17 PM RESEARCH DEVELOPMENT DIRECTOR documented as of this encounter Last Filed Vital Signs Vital Sign Reading Time Taken Comments Blood Pressure 128/80 10/24/2023 12:56 PM CDT Pulse 76 10/24/2023 12:56 PM CDT Temperature 36.8 ??C (98.2 ??F) 10/24/2023 12:56 PM C DT Respiratory Rate - - Oxygen Saturation 96% 10/24/2023 12:56 PM CDT Inhaled Oxygen Concentration - - Weight 132 kg (291 lb) 10/24/2023 12:56 PM CDT Height 177.8 cm (5' 10 ) 10/24/2023 12:56 PM CDT Body Mass Index 41.75 10/24/2023 12:56 PM CDT documented in this encounter Patient Instructions * Patient Instructions* Kanwal Ames DNP - 10/24/2023 1:00 PM CDT Restless Legs Syndrome Restless legs syndrome (RLS) is a disorder that causes a powerful urge to move your legs and feet. You may also have pain, itching, tingling, throbbing, or pulling sensations in your legs. Movement relieves the symptoms for a short time. RLS is usually worse late in the day and at night. Your symptoms may come and go for days or weeks at a time, and worsen during periods of stress. It is important to treat and manage RLS to improve your quality of life. What increases my risk for RLS? Chronic conditions such as diabetes, kidney disease, neuropathy, and Parkinson disease Medicines to treat nausea, psychosis, depression, allergies, or seizures A family history of RLS Anemia due to low levels of iron, folic acid, or other nutrients How is RLS treated? There is no cure for RLS, but you may receive medicine to help treat it. You must also learn how tomanage your symptoms. Management will not get rid of symptoms, but will help reduce them. Keep your legs warm with thick socks or an electric blanket. It may also help to take a hot bath ormassage your legs before bedtime. Avoid alcohol and caffeine, especially in the evening. Alcohol and caffeine may make your symptoms worse. Do not smoke. If you smoke, it is never too late to quit. Smoking worsens the symptoms of RLS. Ask your healthcare provider for information on programs to help you quit. Go to bed and wake up at the same time every day. Lack of sleep makes RLS symptoms worse. Stay active. Moderate physical activity such as walking and stretching may help relieve your symptoms. Ask your healthcare provider about the best exercise plan for you. It is also important to have normal iron and vitamin D levels, as low levels can cause or worsen restless legs syndrome. PAP Cleaning Instructions: Daily Cleaning Wipe down your mask using a damp towel with mild detergent and warm water. Gently rinse with a clean towel and let the mask air-dry. You can also use pre-moistened towels designed specifically for cleaning CPAP masks. If your unit has a humidifier, empty any leftover water. Refill the humidifier with clean, distilled water right before bedtime. If you've been sick, wash your mask, tubing, humidifier and filter daily until your cold, flu or virus symptoms are gone. Weekly Cleaning Clean the CPAP tubing, nasal mask and headgear in a bathroom sink filled with warm water and a few drops of ammonia-free, mild dish detergent. Hang the tubing over the shower kandace, on a towel rack or in the laundry room to ensure all the water drips out. (If a heated hose with electrical prongs, keep the end with the electrical prongs out of the water and dry.) The mask and headgear can be air-dried on a towel or hung on a hook or picture hanger. Wipe down your CPAP machine with a damp cloth (not too damp or wet, as water could get into the machine). Clean the long-term filter by removing it and rinsing it in warm tap water. Squeeze it under the water to make sure there is no dust. Then blot down the filter with a towel. Don't wash your machine's white filter --those are disposable and should be replaced once a month, or sooner if it's dirty. Humidifier Every week empty any remaining water and then wash the water chamber in the sink with warm soapy water. Rinse well and drain out as much of the water as possible. Let the chamber air-dry before placing it back into the CPAP unit. Every other week you should disinfect the humidifier by soaking it in a solution of one part vinegar to five parts water for 30 minutes, thoroughly rinsing and then placing in your scrap metal collector's top rack for washing. And keep it clean by using only distilled water to prevent mineral deposits that can build up and cause damage to your machine. Change disposable filters every 1-2 months. Restless Legs Syndrome Restless legs syndrome (RLS) is a disorder that causes a powerful urge to move your legs and feet. You may also have pain, itching, tingling, throbbing, or pulling sensations in your legs. Movement relieves the symptoms for a short time. RLS is usually worse late in the day and at night. Your symptoms may come and go for days or weeks at a time, and worsen during periods of stress. It is important to treat and manage RLS to improve your quality of life. What increases my risk for RLS? Chronic conditions such as diabetes, kidney disease, neuropathy, and Parkinson disease Medicines to treat nausea, psychosis, depression, allergies, or seizures A family history of RLS Anemia due to low levels of iron, folic acid, or other nutrients How is RLS treated? There is no cure for RLS, but you may receive medicine to help treat it. You must also learn how tomanage your symptoms. Management will not get rid of symptoms, but will help reduce them. Keep your legs warm with thick socks or an electric blanket. It may also help to take a hot bath ormassage your legs before bedtime. Avoid alcohol and caffeine, especially in the evening. Alcohol and caffeine may make your symptoms worse. Do not smoke. If you smoke, it is never too late to quit. Smoking worsens the symptoms of RLS. Ask your healthcare provider for information on programs to help you quit. Go to bed and wake up at the same time every day. Lack of sleep makes RLS symptoms worse. Stay active. Moderate physical activity such as walking and stretching may help relieve your symptoms. Ask your healthcare provider about the best exercise plan for you. It is also important to have normal iron and vitamin D levels, as low levels can cause or worsen restless legs syndrome. documented in this encounter Progress Notes * Kanwal Ames DNP - 10/24/2023 1:00 PM CDT Images from the original note were not included. Patient Name: JA POOLE Medical Record Number (MRN): [id number] Date of (): 1960 Encounter Date: 10/24/2023 [facility] Chief Complaint Ja Poole is a 63 y.o. female seen today for follow up regarding DON. Referring provider: Bj Montaño MD HPI 63 y.o. patient with history of anxiety, depression, hypertension, GERD, NAFLD, COVID infection 06/2022, recurrent sinus infections, diverticulitis s/p colectomy, seasonal allergies who presents for follow up of obstructive sleep apnea. Following last visit, she initially underwent a home sleep study on 03/07/2023 (Wt: 298 lb). She was negative for DON with AHI 3% 2.6. Subsequently she underwent PSG on 06/26/2023 (Wt 295 lb) It showed severe DON with 3% AHI 31.5 and 4% AHI 17.4 Lowest SpO2: 76 %, Time spent SpO2 <= 89%: 7.9 min PLM index: 54/h, arousal 29.2 /h Titration showed 12 cm was optimal. Residual AHI 5.1 Mask used: small/medium Rueda Maciej Nayeli full face mask. She was started on auto CPAP 10-16 cm with EPR 3 agustina 15 min at 6 cm DME: [facility] Current Mask: full facial mask Data download from the machine Data range: 09/24/2023 through 10/23/2023 Compliance rate (>4h): 100 % Average usage: 7 hours 6 minute Current pressure setting: Auto setting 10-16 cm, median 11.4, maximum 15.7 Median leaks: 4.0 L / min, 95th %: 40.4 AHI: 1.6 Change in Sleep Symptoms: Post therapy, pt reports overall improved symptoms of snoring. Pt feels more awake and alert, slightly better quality of sleep. Today's ESS [place] Sleepiness Scale: 4 (scored 6 initially) PAP Side effects: Mask discomfort: YES and mask was recently changed to another full facial mask last week, tolerating much better Pressure intolerance: no Nasal irritation: no Nasal congestion: no Nasal dryness: no Dry mouth: no Abdominal bloating/gas: no Breathing difficulties: no Skin irritation: no Cleaning and maintaining mask/tubing as recommended:YES Current sleep Schedule: Bed/wake time: 930 p.m. through 645 a.m. Sleep latency: 15-30 minute Awakenings: 06/15/2023 bathroom Wake after sleep onset: Immediately Naps: Yes but only once a week Other sleep related problems: -denies symptoms of insomnia, narcolepsy (cataplexy, sleep related hallucination/paralysis), parasomnia. She does report RLS symptoms of the following; -Urge to move legs due to uncomfortable/unpleasant sensations in the legs: Yes -Unpleasant sensations begin/worsen during periods of rest/inactivity, such as lying down/sitting: Yes -Worse in the evening and at bedtime: Yes -Better with movement/walking/stretching: Yes -Disrupting sleep: yes very much, 3 times or more per week -Leg movements during sleep; yes -Symptoms due to another medical/behavioral condition: edematous on BLE -Taking drugs in the following categories: +for Alcohol, caffeine, Antidepressants (except bupropion), Antipsychotics, Dopamine-blocking antiemetics (metoclopramide), Centrally-acting antihistamines (Benadryl): on Effexor for depression, she is planning to wean down -History of iron deficiency: unknown Interval medical history: none HPI of the initial visit with Shawn on 02/08/2023 She was referred to the [facility] by her fuel truck driver for DON evaluation. Her STOP-BANG score was elevated at 5-6 at her pulmonary appt in 11/2022. She snores. She has not been witnessed to stop breathing. She does not wake up gasping for air. Shedoes not have morning headaches. Sleep is not restless. She has vivid dreams. She endorses somniloquy but not somnambulism. She does not act out dreams. Cataplexy: No Sleep related hallucinations: No Sleep paralysis: No She has an uncomfortable sensation in the legs which is relieved by movement/stretching. She is notaware of leg jerks during sleep. Bedtime is 9pm (1030pm on off days), rise time is 615am (6-8am on off days), and she takes 10-15 minutes to fall asleep. She wakes up 0-1 times during the night to use the restroom. It takes 2 minutes for her to fall back asleep. When she can't fall asleep, she will get up, listen to radio, read. She does take naps 0-1 days per week. Naps are 30-45 minutes in length and are intentional. She feels refreshed when she wakes in the morning. She does not doze unintentionally while in sedentary situations. Sleepiness has not affected work. She has not dozed off while driving. Off day schedule different:Yes Use medication to help sleep:No Sleep-related thoughts:No Ruminating thoughts/worries at night:No Use of tablet/phone/TV at night before bed:No [place] sleepiness scale today is 6/24, which is normal. Allergies Allergen Reactions Enoxaparin Hives, Itching, Redness and Swelling Penicillins Swelling Inapsine [Droperidol] Anxiety irritability Current Outpatient Medications Medication Sig Dispense Refill ALPRAZolam (XANAX) 0.25 mg tablet Take 1 tablet (0.25 mg total) by mouth 3 (three) times a day as needed for anxiety azelaic acid 15 % gel APPLY TOPICALLY TO THE AFFECTED AREA TWICE DAILY budesonide-formoteroL (SYMBICORT) 160-4.5 mcg/actuation inhaler Inhale 2 puffs 2 (two) times a day Rinse mouth with water after use. Do not swallow. 1 each 3 cholecalciferol (Vitamin D3) 2000 unit capsule 1 capsule (2,000 Units total) dicyclomine (BENTYL) 20 mg tablet Take 1 tablet (20 mg total) by mouth 3 (three) times a day as needed (abdominal cramping and diarrhea) 90 tablet 11 losartan-hydroCHLOROthiazide (HYZAAR) 50-12.5 mg per tablet 1/2 tab am omeprazole (PriLOSEC) 40 mg capsule Take 1 capsule (40 mg total) by mouth 2 (two) times a day (Patient taking differently: Take 20 mg by mouth 2 (two) times a day) 60 capsule 3 SUMAtriptan (IMITREX) 100 mg tablet venlafaxine 225 mg tablet extended release 24hr 24 hr tablet No current facility-administered medications for this visit. Patient Active Problem List Diagnosis Diverticulitis Achilles tendinitis of left lower extremity NAFLD (nonalcoholic fatty liver disease) Retinal tear of left eye Posterior vitreous detachment, both eyes Combined form of age-related cataract, both eyes Gastritis without bleeding Gastric polyp Dyspnea on exertion DON (obstructive sleep apnea) Past Medical History: Diagnosis Date Anxiety Arthritis Right ankle and knee Cholecystitis Colorectal polyps Depression Diverticulitis GERD (gastroesophageal reflux disease) Hypertension 2 years Migraines 2000 NAFLD (nonalcoholic fatty liver disease) Ovarian cyst Rosacea Past Surgical History: Procedure Laterality Date CHOLECYSTECTOMY 2013 COLECTOMY 04/18/2019 Laparoscopic sigmoid colectomy COLONOSCOPY 10/03/2018 HYSTERECTOMY 1999 TLH, R SO LAPAROSCOPIC OVARIAN CYSTECTOMY LESIONECTOMY Right 2009 benign skin lesion removed from anterior chest SINUS SURGERY 1985 SKIN CANCER EXCISION Right 1994 V-Y flap R episcopalian for BCCa TERATOMA EXCISION Left 1995 L SO TONSILLECTOMY AND ADENOIDECTOMY 1963 TONSILLECTOMY AND ADENOIDECTOMY 1961 Family History Problem Relation Age of Onset Colon cancer Mother Hypertension Mother Gallbladder disease Mother Cancer Mother Depression Mother Gallbladder disease Father Diverticulosis Father Heart attack Father 71 fatal day following [facility] Diverticulosis Brother Diabetes Maternal Grandmother Malig Hyperthermia Neg Hx Anesthesia problems Neg Hx Sudden Cardiac Neg Hx Stroke Neg Hx Bleeding Disorder Neg Hx Clotting disorder Neg Hx Social History Education: associates degree Marital Status: 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 Lab Results Component Value Date TSH 2.28 08/25/2023 TSH 2.45 01/11/2023 CO2 26 08/25/2023 CO2 28 01/11/2023 HGB 14.0 08/25/2023 HGB 14.4 01/11/2023 HCT 43.8 08/25/2023 HCT 43.7 01/11/2023 WBC 7.0 08/25/2023 WBC 7.4 01/11/2023 Lab Results Component Value Date CREATININE 0.93 08/25/2023 CREATININE 1.02 01/11/2023 AST 65 (H) 08/25/2023 AST 37 01/11/2023 ALT 58 (H) 08/25/2023 ALT 36 01/11/2023 Vital Signs Vitals: 10/24/23 1256 BP: 128/80 BP Location: Left arm Patient Position: Sitting Pulse: 76 Temp: 36.8 ??C (98.2 ??F) TempSrc: Temporal SpO2: 96% Weight: 132 kg (291 lb) Height: 177.8 cm (5' 10 ) Body mass index is 41.75 kg/m??. Physical Exam GENERAL EXAM: General: Well developed, well nourished, in no acute distress. HEENT: Normal conjunctivae/sclerae. Tonsils surgically absent. Mallampati class 3-4. +wide neck. Cardiovasc: Regular rate and rhythm; there are no murmurs, gallops or rubs. Pulmonary: Lungs are clear to auscultation bilaterally. Extremities: No clubbing, no cyanosis. No edema. Integementry System: Facial skin no irritation or breakouts, skin warm and dry, no rash. Edematous BLE +2 NEUROLOGIC EXAM: Mental Status: Alert, oriented, normal spontaneous fluent speech with full comprehension. Cranial Nerves: PERRL, extraocular movements full and conjugate, face symmetric, palate rise and tongue protrusion symmetric. Motor: Normal bulk and tone. Normal fine finger movements. No tremor. Coordination and Gait: Normal stance and gait. Assessment/Plan The pt is a 63 y.o. female with history of anxiety, depression, hypertension, GERD, NAFLD, COVID infection 06/2022, recurrent sinus infections, diverticulitis s/p colectomy, seasonal allergies who hassymptoms suggestive of obstructive sleep apnea including snoring. Exam is notable for obesity with BMI>30, a wide neck, and a narrow airway and post-menopausal status which place her at higher risk for DON. -She was found to have severe DON with baseline AHI 31.5. -She is tolerating PAP therapy well, reporting overall subjective improvement in sleep quality, improved snoring and daytime sleepiness. 1. Obstructive sleep apnea -Patient is benefiting from using PAP during sleep. -We went over normal maintenance and required cleaning and replacement of the PAP machine and related supplies, provided other troubleshooting and helpful tips. -Follow-up to ensure tolerance, efficacy and compliance. -Continue current setting of 10-16 cm with new Full mask. 2. Hypersomnia -Likely multifactorial secondary to sleep fragmentation associated with uncontrolled sleep disordered breathing and insufficient sleep. -Pt has shown improvement. -Will monitor response to therapy for the above. -Advised to not drive while sleepy. 3. Morbid Obesity -The effects of obesity, obstructive sleep apnea syndrome and other morbidities were discussed. -Recommended diet and exercise for ideal body weight. 4 Restless legs syndrome/ PLMD -The history is suggestive of restless leg syndrome/PLMD. We explained that RLS may be worsened by underlying iron depletion, sleep deprivation, or untreated sleep disordered breathing, or use of antihistamine, antiemetics, or antidepressants. -PLMI was 54/h with arousal 29.2/h. -Will obtain ferritin level, iron panel, vitamin D (she is on 2000u daily). -If ferritin level is low (goal is >75 ng/ml), we recommend ferrous sulfate 325 mg daily. We explained that in order to maximize iron absorption, ferrous sulfate should be taken on an empty stomach, along with vitamin C 100-200 mg. Food and drinks that contain calcium, such as milk, may decreaseiron absorption. RLS symptoms may improve after possible DON is treated accordingly. -if above levels are normal, would consider gabapentin 100 mg nightly and titrate up as needed. -She is also planning to wean down Effexor which is known to worsen RLS symptoms. -The patient was advised to avoid sleep deprivation, long trips without breaks, caffeine, alcohol, tobacco, and phlebotomy for blood donation. Light to moderate exercise was encouraged but avoid strenuous exercise before bedtime. We discussed conservative treatments such as hot baths, leg message, and applied heat/ice. Will follow up in 3 months. Future Appointments Date Time Provider Department Center 11/23/2023 10:10 AM Cathi Herzog PA GI [id number] [facility] 12/29/2023 9:45 AM PFT 7 CAM 8D PFT CAM 8D [facility] 12/29/2023 11:00 AM Stephani James NP PUL CAM 8B [facility] 01/24/2024 11:30 AM Kanwal Ames DNP SLEEP CTR 40 NL 05/02/2024 12:45 PM Odilon Chester MD GI [id number] [facility] 07/17/2024 1:00 PM Anu Ramos MD PCP IM 250 PC 09/16/2024 9:00 AM Avelino Vásquez, [facility] Thank you for allowing me to participate in the care of this pt. Please feel free to contact me with any questions. I was with the patient during the session for 30 minutes. In addition to the time spent during the session with the patient, I spent 15 minutes on the day of the visit on other activities related to the visit such as preparing to see the patient, counseling and educating the patient/family/caregiver, ordering medications, tests, or procedures, referring and communicating with other healthcare professionals, documenting clinical information in the electronic or other health record, independentlyinterpreting results and communicating the results to the patient/family/caregiver, and/or on care coordination. My total encounter time on 10/24/23 was 45 minutes which was spent in the activities documented in the note. This time does not include time spent in any separately reportable services. Kanwal Ames DNP, PATIENT EXPERIENCE COORDINATOR-[facility], Department of Neurology [facility] Voice recognition software [employer] Direct was used dictate and transcribe this document. Cattery Operator variances may occur. Despite proofreading, typographical errors may occur Cosigned by Henry Freitas MD at 10/24/2023 3:12 PM CDT Associated attestation - Henry Freitas MD - 10/24/2023 3:12 PM CDT I have reviewed the note and agree with the findings and plan of care as documented. Herny Freitas M.D., FAASM Professor of Neurology [facility] Diplomate, [place] Board of Psychiatry and Neurology with added Qualifications in Sleep Medicine documented in this encounter Miscellaneous Notes * Addendum Note - Michelle Das - 10/24/2023 1:00 PM CDTAddended by: MICHELLE DAS on: 10/26/2023 11:16 AM Modules accepted: Orders * Addendum Note - Breanna Woody - 10/24/2023 1:00 PM CDTAddended by: BREANNA WOODY on: 10/26/2023 01:30 PM Modules accepted: Orders documented in this encounter Plan of Treatment Not on file documented as of this encounter Results * Iron profile w/ IBC (10/26/2023 11:16 AM CDT) Iron 58 35 - 145 mcg/dl TIBC 292 250 - 400 mcg/dL [facility] Transferrin saturation 20 20 - 50 % [facility] Blood 10/26/2023 11:1 6 AM CDT 10/26/2023 1:45 PM CDT us Kanwal Ames [facility] LAB BLOOD ORDERABLES Final Resu lt Performing Organization Address [facility] Co de Phone Number BRITTANY RIVERA [phone] [address] [facility] [email or web address] [address] * Ferritin (10/26/2023 11:16 AM CDT) Ferritin 97 15 - 150 ng/mL Blood 10/26/2023 11:1 6 AM CDT 10/26/2023 1:45 PM CDT Kanwal Ames [facility] LAB BLOOD ORDERABLES Final Resu lt Performing Organization Address [facility] de Phone Number BRITTANY RIVERA [address] [address] [facility] [email or web address] [address] * Vitamin D 25 hydroxy (10/26/2023 11:16 AM CDT) Vitamin D 25-OH 37 30 - 80 ng/mL Blood 10/26/2023 11:1 6 AM CDT 10/26/2023 1:45 PM CDT us Kanwal Ames [facility] LAB BLOOD ORDERABLES Final Resu lt Performing Organization Address [facility] de Phone Number BRITTANY RIVERA [phone] [place] [address] documented in this encounter Visit Diagnoses Diagnosis DON (obstructive sleep apnea)- Primary Obstructive sleep apnea (adult) (pediatric) Hypersomnia Hypersomnia, unspecified Morbid obesity with body mass index (BMI) of 40.0 to 49.9 ([facility]) Vitamin D deficiency Iron deficiency Disorders of iron metabolism Periodic limb movement disorder (PLMD) Periodic limb movement disorder RLS (restless legs syndrome) Restless legs syndrome (RLS) documented in this encounter Discontinued Medications Medication Sig Discontinue Reason Start Date End Da te cetirizine (ZyrTEC) 10 mg tablet Take 1 tablet (10 mg total) by mouth as needed for allergies Stop Taking at Discharge 10/24/2023 [id number] C ORAL Stop Taking at Discharge 10/24/2023 psyllium husk (METAMUCIL ORAL) Take 6 Caplet by mouth every morning 6 caps am Stop Taking at Discharge 10/24/2023 soy isofla/blk cohosh/mag bark (ESTROVEN ORAL) Take by mouth Unsure med dosage every day hs Stop Taking at Discharge 10/24/2023 documented as of this encounter Orders Outpatient Referral Count Last Ordered Date Fir st Ordered Date AMB REFERRAL TO SLEEP MEDICINE 1 10/24/2023 documented in this encounter Care Teams Rivet Sorter Relationship Specialty Start Date End Date Bj Montaño MD PCP - General Family Medicine 04/15/22 02/19/24 Odilon Chester MD 1 [facility] [place] [address] Referring Physician Gastroenterology 06/06/23 Roosevelt Thomas MD 1 [facility] [place] [address] Fellow Pulmonary Disease 06/06/23 documented as of this encounter
--- OUTSIDE RECORDS SUMMARY | 2024-05-20 13:06 | XMS_ITS | Encounter Summary ---
Author Organization [facility] Address [address] [place] [address] Phone Care Team Providers Care Manager Cash Name Role Phone Bj Montaño MD Primary Care Provider Odilon Chester MD Unavailable [phone] Roosevelt Thomas MD Unavailable [phone] Encounter Details Date Type Department Care Team (Late st Contact Info) Description 10/25/2023 Telephone [facility] Neuro Sleep [address] 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 LVM documented in this encounter Plan of Treatment Not on file documented as of this encounter Visit Diagnoses Not on filedocumented in this encounter Care Teams Manager Cash Relationship Specialty Start Date End Date Bj Montaño MD PCP - General Family Medicine 04/15/22 02/19/24 Odilon Chester MD 1 [facility] [place] [address] Referring Physician Gastroenterology 06/06/23 Roosevelt Thomas MD 1 [facility] [place] [address] Fellow Pulmonary Disease 06/06/23 documented as of this encounter
--- OUTSIDE RECORDS SUMMARY | 2024-05-20 13:06 | XMS_ITS | Encounter Summary ---
Author Organization [facility] Address [address] [place] [address] Phone Care Team Providers Care Author'S Agent Name Role Phone Bj Montaño MD Primary Care Provider Odilon Chester MD Unavailable [phone] Roosevelt Thomas MD Unavailable [phone] Reason for Referral * Consultation (Routine) - Authorized Specialty Diagnoses / Procedures Referred By Contac t Referred To Contact Diagnoses Elevated LFTs Hepatic steatosis Cathi Herzog PA [address] [place] [address] Phone: tel: fax: Narinder Gage NP [address] [place] [address] Phone: tel: fax: Referral ID Status Reason Start Date Expiration Date Visits Requested Visits Authorized [id number] Authorized Specialty Services Required 11/23/2023 12/22/2024 99 99 Question Answer Are you referring this patient for liver disease medical management? Yes Which condition(s) need medical mangement? Steatosis Please select the performing region: [facility] (All Locations) [[id number]] To provider: NARINDER GAGE [[id number]] # of visits: 1 Comments Hepatic steatosis Encounter Details Date Type Department Care Team (Late st Contact Info) Description 11/23/2023 10:10 AM CDT Office Visit [facility] Gastroenterology [address] [facility] 2nd Floor [address] [place] [address] Cathi Herzog PA [address] [place] [address] Irritable bowel syndrome with diarrhea (Primary Dx); Heartburn; Gastric polyp; Elevated LFTs; Hepatic steatosis; History of colon polyps Social History Tobacco Use Types Packs/Day Years [...] on file Legal Sex Female 2:22 AM 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 Gender Identity Female 05/18/2019 7:17 PM 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 Sexual Orientation Straight 05/18/2019 7: 17 PM 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 documented as of this encounter Last Filed Vital Signs Vital Sign Reading Time Taken Comments Blood Pressure 150/81 11/23/2023 10:04 AM CDT Pulse 78 11/23/2023 10:04 AM CDT Temperature 36.9 ??C (98.5 ??F) 11/23/2023 10:04 AM C DT Respiratory Rate - - Oxygen Saturation 98% 11/23/2023 10:04 AM CDT Inhaled Oxygen Concentration - - Weight 131.5 kg (290 lb) 11/23/2023 10:04 AM CDT Height 177.8 cm (5' 10 ) 11/23/2023 10:04 AM CDT Body Mass Index 41.61 11/23/2023 10:04 AM CDT documented in this encounter Patient Instructions * Patient Instructions* Cathi Herzog PA - 11/23/2023 10:10 AM CDT Office [phone] documented in this encounter Progress Notes * Cathi Herzog PA - 11/23/2023 10:10 AM CDT Reason for visit: Follow up on abdominal pain, bowel frequency and urgency HPI: 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 Hodge, history of colon polyps, hyperplastic gastric polyp, obesity, cholecystectomy, hysterectomy who was last seen on 08/24/2023 for complaints of bloating, flatulence, urgency with BM & infrequent nausea. At that time, endorsed being diagnosed with a duodenal ulcer in 1995, history of H. Pylori s/p treatment x 2. She had cholecystectomy in 2011 for cholelithiasis. In November 2022 she noticed post prandial diarrhea. She tried using fiber supplementation and Align without improvement in symptoms. After eating would develop bowel urgency and diarrhea. Stools started out semi- solid then progressed to liquid. She had had increased frequency and urgency. Denied blood in the stool or nocturnal symptoms. She had associated pain/cramping. Recalled taking dicyclomine many years ago with benefit. She also complained of nausea and increased reflux symptoms since November 2022. She was taking omeprazole with minimal improvement. She tried Protonix and Carafate slurry with some improvement. Insurance changed and no longer approved pantoprazole so she was taking omeprazole 20 mg BID with minimal benefit. She elevated HOB, avoided eating late. She could wake up with acid in her throat at night. She denied dysphagia. She had nausea, down 7-8 lb due to this. No Vomiting. Colonoscopy with Dr. Chester 12/2022 showed multiple colon polyps and diverticulosis. She has had EGD x [address] Chester. See findings below, no explanation for symptoms. RUQ US with hepatic steatosis, otherwise normal. Labs showed mild elevation of ALT and AST 58/65. CBC, TSH, Celiac serologies normal. I recommended omeprazole 40 mg BID, Zofran prn, dicyclomine 20 mg PRN. Today, she is seen for follow up. She is doing well. She is using dicyclomine prn which has been very helpful for cramping. She has used this about 3 times or so. Bowels overall improved. She has been having predictable BMs every 2 days. She increased the omeprazole for a period of time with improvement in symptoms and was able to go back down to 20 mg in the evening/night time with good control of her symptoms. She has also made diet changes which has also helped. She had a sleep study since last visit, diagnosed with DON, on CPAP. She is trying to lose weight. She is in the process of weaning off venlafaxine since she has retired (she is also concerned that this may be causing elevation of LFTs). She will be decreasing dose and eventually weaning off. She stopped OTC pain meds (using Tylenol or Advil rarely). No longer using Metamucil or probiotics. Still feeling very concerned about her liver enzymes. Fibrosis-4 (FIB-4) Calculator: 2.14 at 11/23/2023 10:25 AM Calculated from: SGOT/AST: 65 Units/L at 08/25/2023 8:17 AM SGPT/ALT: 58 Units/L at 08/25/2023 8:17 AM Platelets: 263 K/cumm at 08/25/2023 8:17 AM Age: 63 years Patient Active Problem List Diagnosis Diverticulitis Achilles tendinitis of left lower extremity NAFLD (nonalcoholic fatty liver disease) Retinal tear of left eye Posterior vitreous detachment, both eyes Combined form of age-related cataract, both eyes Gastritis without bleeding Gastric polyp Dyspnea on exertion DON (obstructive sleep apnea) Outpatient Medications Marked as Taking for the 11/23/23 encounter (Office Visit) with Cathi Herzog PA Medication Sig Dispense Refill ALPRAZolam (XANAX) 0.25 [...] taking differently: Take 20 mg by mouth daily) 60 capsule 3 SUMAtriptan (IMITREX) 100 mg tablet [DISCONTINUED] venlafaxine 225 mg tablet extended release 24hr 24 hr tablet ROS: As outlined in HPI. All other systems negative. Physical Exam: BP 150/81 Pulse 78 Temp 36.9 ??C (98.5 ??F) Ht 177.8 cm (5' 10 ) Wt 131.5 kg (290 lb) SpO2 98% BMI 41.61 kg/m?? Constitutional: Not in acute distress. HEENT: Sclera is not icterus. Conjunctiva is pink. Orapharynx is clear and moist. Neck: Supple. No thyromegaly. No lymphadenopathy. Pulmonary: Normal breathing sounds. Cardiovascular: Regular rate and rhythm. Normal S1 and S2. No murmur. Abdomen: Normal bowel sounds. Soft. No tenderness. No distention. Skin: No rash Laboratory data: Records and pertinent lab results were reviewed. Lab Results Component Value Date WBC 7.0 08/25/2023 HGB 14.0 08/25/2023 HCT 43.8 08/25/2023 MCV 94.6 08/25/2023 LABPLAT 263 08/25/2023 Chemistry Lab Results Component Value Date SODIUM 138 08/25/2023 POTASSIUM 4.5 08/25/2023 CHLORIDE 103 08/25/2023 CO2 26 08/25/2023 ANIONGAP 9 08/25/2023 BUNSER 18 08/25/2023 CREATININE 0.93 08/25/2023 GLUCOSE 109 08/25/2023 CALCIUM 9.5 08/25/2023 BILITOT 0.5 08/25/2023 ALBUMIN 4.1 08/25/2023 GFRNAA 68 08/25/2023 ALKPHOS 45 08/25/2023 AST 65 (H) 08/25/2023 ALT 58 (H) 08/25/2023 MAGNESIUM 1.9 04/19/2019 RUQ US 09/08/2023 1. Limited visualization due to overlying soft tissue. Within those limits: 2. Similar-appearing mild diffuse hepatic steatosis. EGD 07/12/2023 Dr. Chester (gastric hyperplastic polyp) - Normal esophagus. - A single gastric polyp. Resected and retrieved. - Normal examined duodenum. Path Stomach, cardia, polyp, biopsy: - Gastric hyperplastic polyp with erosion and cautery artifacts. - No definitive evidence of intestinal metaplasia or dysplasia. - Results of Helicobacter pylori immunostain will be reported in an addendum. Addendum Comment Helicobacter pylori immunostain is negative. Repeat 1 yr Colonoscopy 01/04/2023 Dr. Chester (Screening for colorectal malignant neoplasm, Last colonoscopy: 2018) - The examined portion of the ileum was normal. - Two 6 to 8 mm polyps in the ascending colon, removed with a cold snare. Resected and retrieved. - One 4 mm polyp in the transverse colon, removed with a cold snare. Resected and retrieved. - Two 5 to 6 mm polyps in the descending colon, removed with a cold snare. Resected and retrieved. - Diverticulosis in the descending colon. - Patent end-to-end colo-rectal anastomosis, characterized by healthy appearing mucosa. - External and internal hemorrhoids. Path C. Large intestine, ascending colon polyps, biopsy - Fragments of tubular adenoma - No high-grade dysplasia or malignancy D. Large intestine, transverse colon polyp, biopsy - Fragments of tubular adenoma - No high-grade dysplasia or malignancy E. Large intestine, descending colon polyp, biopsy - Fragments of tubular adenoma - No high-grade dysplasia or malignancy F/U 3 yrs EGD 01/04/2023 Dr. Chester (heartburn) - Normal esophagus. - A single mucosal papule (nodule) found in the stomach. Biopsied. - Erythematous mucosa in the stomach. Biopsied. - Normal examined duodenum. Path A. Stomach, biopsy - Antral and oxyntic mucosa with chronic inactive gastritis - No intestinal metaplasia, dysplasia or malignancy - No Helicobacter pylori organisms seen on H&E examination B. Stomach, cardia nodule, biopsy - Inflammatory/hyperplastic polyp - No adenoma, ntestinal metaplasia, dysplasia or malignancy Colonoscopy 10/03/2018 Dr. English (hx recurrent diverticulitis, colon polyps) Diverticulosis from distal descending colon to mid sigmoid colon Repeat 5-[address] chest WO 08/17/2022 1. Stable scarring in the right middle lobe and lingula. Otherwise, no acute findings in the chest to explain the patient's symptoms. 2. Hepatic steatosis. US abdomen 01/26/2022 Mild diffuse hepatic steatosis with postcholecystectomy changes. Assessment/Plan: Diagnoses and all orders for this visit: Irritable bowel syndrome with diarrhea (Primary) Previously endorsed abdominal cramping and diarrhea felt most likely due to IBS- D vs post ru diarrhea. Colonoscopy, Celiac and thyroid testing negative. Cramping relieved after BM. No alarm features. Dicyclomine 20 mg prn has been very helpful as well as dietary changes. She has also stopped takinga probiotic and Metamucil and is eating healthier. Her BMs have normalized and symptoms currently well managed with diet and Bentyl prn. She will continue this regimen. Heartburn Improved. EGD without findings to explain symptoms. We had temporarily increased omeprazole to 40 mg BID due to refractory symptoms on once daily PPI. Also encouraged anti-reflux diet and lifestyle modifications. Her symptoms improved and now back down to 20 mg in the evening/night time with good control of her symptoms. She will continue this regimen. Elevated LFTs Hepatic steatosis Mild elevation of AST/ALT, BMI 41.6, elevation is most likely due to hepatic steatosis as noted on ultrasound. Denies alcohol use. Will repeat labs today and check additional liver serologies. Discussed referral to hepatology for fibro scan and further management. She is agreeable. Gastric polyp EGD 12/2022 with a 6 mm gastric papule nodule c/w gastric inflammatory polyp. Follow up 6 months 06/2023 with an 8 mm sessile polyp in cardia, removed. Path consistent with gastric hyperplastic polyp. A repeat EGD in 1 year recommended. Due 06/2024. History of colon polyps Colonoscopy 12/2022 with multiple TAs removed. A 3 year follow up recommended. Due 12/2025. Follow up: Dr. Chester 05/02/2024 JUANPABLO Chamorro documented in this encounter Miscellaneous Notes * Addendum Note - Jd Melara CLT - 11/23/2023 10:10 AM CDTAddended by: JD MELARA on: 11/27/2023 08:37 AM Modules accepted: Orders * Addendum Note - Jd Melara CLT - 11/23/2023 10:10 AM CDTAddended by: JD MELARA on: 11/27/2023 08:38 AM Modules accepted: Orders documented in this encounter Plan of Treatment Scheduled Orders Name Type Priority Associated Diagnoses Orde r Schedule Liver/kidney microsome type 1 antibody Lab Routine Elevated LFTs Hepatic steatosis Expected: 11/23/2023, Expires: 11/22/2024 Scheduled Referrals Name Type Priority Associated Diagnoses Order Schedule Ambulatory referral to Hepatology Outpatient Referral Routine Elevated LFTs Hepatic steatosis Ordered: 11/23/2023 documented as of this encounter Results * (ABNORMAL) Hepatic function panel (11/27/2023 8:39 AM CDT) Bilirubin, total 0.6 0.1 - 1.2 mg/dL Bilirubin, direct <0.2 0.1 - 0.3 mg/dL [facility] Protein, pl 7.3 6.5 - 8.5 g/dL [facility] Albumin 4.0 3.5 - 5.0 g/dL [facility] Alk phos 48 40 - 130 Units/L [facility] ALT 47(H) 7 - 45 Units/L [facility] AST 46(H) 10 - 45 Units/L [facility] Blood 11/27/2023 8:39 AM CDT 11/27/2023 2:38 PM CDT us Cathi GERONIMO LAB BLOOD ORDERABLES Fi nal Result BRITTANY [address] Department [place] [address] * Smooth muscle antibody, qualitative (11/27/2023 8:39 AM CDT) Anti-smooth muscle Negative Negative Comment:Testing performed by : [facility], [address] [place] [address]., [id number] Blood 11/27/2023 8:39 AM CDT 11/27/2023 5:16 PM CDT Cathi GERONIMO LAB BLOOD ORDERABLES Fi nal Result Performing Organization Address [facility] Co de Phone Number [facility] [address] [place] [address] * [id number] (11/27/2023 8:39 AM CDT) Pathologist [facility] [place] alpha-1 antitrypsin 141 90 - 200 mg/dL Comment:Testing performed by : [facility], [address] [facility], [place]., [address] Blood 11/27/2023 8:39 AM CDT 11/27/2023 5:16 PM CDT Cathi GERONIMO LAB BLOOD ORDERABLES Fi nal Result Performing Organization Address City/[facility] Co de Phone Number [facility] [address] [address] [place] [address] * МАРИНА ab ql w/rflx to МАРИНА qn (11/27/2023 8:39 AM CDT) МАРИНА Negative Comment: Interpretive Data Normal range for МАРИНА Qualitative Antibody = Negative. 1. МАРИНА is performed using indirect immunofluorescence against HEp-2 cells 2. МАРИНА titers are performed on all positive qualitative results. 3. A significantly positive МАРИНА result is defined as a positive nuclear fluorescence at a titer of 1:80 or greater. 4. 15% of normal people above age 65 have significantly positive МАРИНА results. ??5% or less of normal people age 65 or under have significantly positive МАРИНА results. Current interpretive data was last revised on 2020. Testing performed by: [facility], [address] [place] [address]., [id number] Blood 11/27/2023 8:39 AM CDT 11/27/2023 5:16 PM CDT Cathi GERONIMO LAB BLOOD ORDERABLES Fi nal Result Performing Organization Address City/[facility]/ZIP Co de Phone Number BRITTANY [address] [address] Department [place] [address] * Ceruloplasmin (11/27/2023 8:39 AM CDT) Ceruloplasmin 24.1 16.0 - 45.0 mg/dL Comment:Testing performed by : [facility], [address] [place] [address]., [id number] Blood 11/27/2023 8:39 AM CDT 11/27/2023 5:16 PM CDT Cathi GERONIMO LAB BLOOD ORDERABLES Fi nal Result Performing Organization Address [facility] Co de Phone Number ISIAHGARETH [address] [address] [facility] [place] [address] * Mitochondrial antibodies, qualitative (11/27/2023 8:39 AM CDT) Anti-mitochond rial Negative Negative Comment:Testing performed by : [facility], [address] [place] [address]., [id number] Blood 11/27/2023 8:39 AM CDT 11/27/2023 5:16 PM CDT Cathi GERONIMO LAB BLOOD ORDERABLES Fi nal Result BRITTANY RIVERA [address] Department [place] [address] * Hepatitis panel, acute Blood (11/27/2023 8:39 AM CDT) Hep A IgM Nonreactive Nonreactive Comment: Interpretive Data: If Hep A IgM Ab is reported as Equivocal, a new sample should be drawn in two weeks for testing. Current interpretive data was last revised on 19. Hep B core IgM Nonreactive [facility] Comment: Interpretive Data If HepB Core IgM Ab is reported as Equivocal, a new sample should be drawn in two weeks for testing. Current interpretive data was last revised on 19. Hep C Ab Nonreactive Nonreactive [facility] Comment: Interpretive Data Nonreactive: Antibodies to HCV [...] last revised on 2019. HepBsAg Nonreactive Nonreactive [facility] Blood 11/27/2023 8:39 AM CDT 11/27/2023 2:38 PM CDT Cathi GERONIMO LAB MICROBIOLOGY - GENE RAL ORDERABLES Final Result BRITTANY [address] Department [place] [address] documented in this encounter Visit Diagnoses Diagnosis Irritable bowel syndrome with diarrhea- Primary Irritable bowel syndrome Heartburn Gastric polyp Benign neoplasm of stomach Elevated LFTs Other abnormal blood chemistry Hepatic steatosis Other chronic nonalcoholic liver disease History of colon polyps documented in this encounter Discontinued Medications Medication Sig Discontinue Reason Start Date End Da te venlafaxine 225 mg tablet extended release 24hr 24 hr tablet Therapy completed 05/12/202211/12 documented as of this encounter Care Teams Author'S Agent Relationship Specialty Start Date End Date Bj Montaño MD PCP - General Family Medicine 04/15/22 02/19/24 Odilon Chester MD 1 [facility] [place] [address] Referring Physician Gastroenterology 06/06/23 Roosevelt Thomas MD 1 [facility] [place] [address] Fellow Pulmonary Disease 06/06/23 documented as of this encounter
--- OUTSIDE RECORDS SUMMARY | 2024-05-20 13:06 | XMS_ITS | Encounter Summary ---
Author Organization [facility] Address [address] [place] [address] Phone Care Team Providers Care Human Resources Operations Specialist Name Role Phone Odilon Chester MD Unavailable [phone] Roosevelt Thomas MD Unavailable [phone] Leticia Thorne NP Primary Care Provider [phone] Reason for Referral * Diagnostic Imaging (Routine) - Pending Review Specialty Diagnoses / Procedures Referred By Contac t Referred To Contact Diagnoses Left foot pain Procedures XR Foot Left 3 [place] [address] [place] [address] Phone: tel: fax: [address] [phone] Referral ID Status Reason Start Date Expiration Date V isits Requested Visits Authorized [id number] Pending Review 03/21/2024 04/20/2025 1 1 F LEARNING OFFICER * Diagnostic Imaging (Routine) - Pending Review Specialty Diagnoses / Procedures Referred By Contac t Referred To Contact Diagnoses Left ankle pain, unspecified chronicity Procedures XR Ankle Left 3 [place] [address] [place] [address] Phone: tel: fax: [address] [phone] Referral ID Status Reason Start Date Expiration Date V isits Requested Visits Authorized [id number] Pending Review 03/21/2024 04/20/2025 1 1 F LEARNING OFFICER Reason for Visit * Reason Comments Pain Pain * Consultation (Routine) - Closed Specialty Diagnoses / Procedures Referred By Sisi de león Referred To Contact Orthopedic Surgery Diagnoses Follow-up exam [facility] [address] [place] [address] Phone: tel: fax: [facility] (All Locations) Referral ID Status Reason Start Date Expiration Date V isits Requested Visits Authorized [id number] Closed Specialty Services Required 03/21/2024 04/20/2025 1 1 Encounter Details Date Type Department Care Team (Late st Contact Info) Description 03/25/2024 10:45 AM CHIEF LEARNING OFFICER Office Visit [facility] [address] [facility] [address] [place] [address] [place] [address] [place] [address] Left foot pain (Primary Dx); Left ankle pain, unspecified chronicity; Follow-up exam Social History Tobacco Use Types Packs/Day Years [...] on file Legal Sex Female 2:22 AM CHIEF LEARNING OFFICER Gender Identity Female 05/18/2019 7:17 PM CHIEF LEARNING OFFICER Sexual Orientation Straight 05/18/2019 7: 17 PM CHIEF LEARNING OFFICER documented as of this encounter Progress Notes * Miguel Bryson, FISHER TROLL LINE - 03/25/2024 10:45 AM CST RETURN PATIENT VISIT INTERIM HISTORY The patient is here for follow-up of her left heel. She has a history of Achilles tendinitis. She has worked through multiple conservative treatments in the past. She has custom orthotics. She tried doing some Salonpas patches but feels this made it worse. No new injury. She noted increasing pain last Monday. She describes it as achy. She did mentioned she has been trying to walk more as she is being worked up for COL[place]N. She does have an older boot that she wore on Monday and Monday which was helpful. She has been doing ice. She also has a history of posterior tib tendinopathy PHYSICAL EXAMINATION On physical exam she is alert and oriented x3. Skin exam reveals no rashes, lesions or ulcers. Sensation is intact to light touch. She has intact dorsiflexion, plantar flexion, inversion and eversion. She has tenderness to palpation at the insertion of the Achilles tendon. Mild thickening. Mild swel ling. No redness or bruising. No warmth. No gaps or bulges. No tenderness through the midsubstance of the tendon. REVIEW OF X-RAYS/STUDIES I have ordered left foot and ankle x-ray and personally reviewed the images. My independent interpretation is no acute fracture of the left foot or ankle. Ankle mortise is intact. There is extensive Achilles tendon enthesophyte. There is likely medial talar dome osteochondral defect. IMPRESSION/DIAGNOSIS History of left Achilles tendinitis with enthesitis, heterotopic ossification, mucoid degeneration or small intrasubstance tear and retrocalcaneal bursitis History of left posterior tib tendinopathy TREATMENT/PLAN We discussed treatment options in the office today. She had an MRI back in May of 2021. She is having a flare of her Achilles. She was provided a new boot today. She can be weight-bearing as tolerated. She can take the boot off to sleep, take a bath or shower and do [id number] exercises. She should ice. She can try a night splint. We also gave her wedges to use in her boot. I would have her do this for 3 weeks and check her back at that time. She may be in a boot for up to 6 weeks. Sheis agreeable with the plan. All her questions were answered today. FOLLOW UP Three weeks I was in collaboration with Dr. Subramanian today. Miguel Bryson RN,BSN, MSN, INTELLECTUAL PROPERTY LEGAL ASSISTANT, HOME CARE CONSULTANT-C, in collaborative practice with Dr. Cheryl Craig, Dr. Jarred Dempsey and Dr. Jordon Subramanian Nurse Practitioner, Foot and Ankle Service [facility]. This is ANNA Dickey dictating using [employer] Direct Software Program. Brim Stretching Machine Operator variances may occur. F LEARNING OFFICER documented in this encounter Plan of Treatment Not on file documented as of this encounter Results * XR Foot Left 3 or More Views (03/25/2024 10:47 AM CHIEF LEARNING OFFICER) Anatomical Region Laterality Modality Lower Extremities, Foot Left Digital Radiography 03/25/2024 11:5 7 AM CHIEF LEARNING OFFICER Impressions 03/25/2024 11:57 AM CHIEF LEARNING OFFICER There are extensive enthesopathic changes along the [...] Bina Bird M.D. Narrative 03/25/2024 11:57 AM CHIEF LEARNING OFFICER EXAMINATION: 1. ??3 VIEWS OF THE LEFT [...] up. Electronically signed by: Bina Bird M.D. Miguel Bryson FISHER TROLL LINE IMG XR PROCEDURES Final Re sult * XR Ankle Left 3 or More Views (03/25/2024 10:46 AM CHIEF LEARNING OFFICER) Anatomical Region Laterality Modality Lower Extremities, Ankle Left Digital Radiography 03/25/2024 11:5 7 AM CHIEF LEARNING OFFICER Impressions 03/25/2024 11:57 AM CHIEF LEARNING OFFICER There are extensive enthesopathic changes along the [...] Bina Bird M.D. Narrative 03/25/2024 11:57 AM CHIEF LEARNING OFFICER EXAMINATION: 1. ??3 VIEWS OF THE LEFT [...] up. Electronically signed by: Bina Bird M.D. Miguel Bryson FISHER TROLL LINE IMG XR PROCEDURES Final Re sult documented in this encounter Visit Diagnoses Diagnosis Left foot pain- Primary Pain in soft tissues of limb Left ankle pain, unspecified chronicity Follow-up exam Unspecified follow-up examination Left foot pain Pain in soft tissues of limb Left ankle pain, unspecified chronicity documented in this encounter Orders Outpatient Referral Count Last Ordered Date Fir st Ordered Date AMB REFERRAL TO ORTHOPEDIC SURGERY 1 2023 documented in this encounter Care Teams Human Resources Operations Specialist Relationship Specialty Start Date End Date Leticia Thorne, FISHER TROLL LINE [address] [place] [address] PCP - General Family Medicine 02/20/24 Odilon Chester MD 1 [facility] [place] [address] Referring Physician Gastroenterology 06/06/23 Roosevelt Thomas MD 1 [facility] [place] [address] Fellow Pulmonary Disease 06/06/23 documented as of this encounter
--- OUTSIDE RECORDS SUMMARY | 2024-05-20 13:06 | XMS_ITS | Encounter Summary ---
Author Organization [facility] Address [address] [place] [address] Phone Care Team Providers Care Sort Line Worker Name Role Phone Bj Montaño MD Primary Care Provider [phone] Odilon Chester MD Unavailable [phone] Roosevelt Thomas MD Unavailable [phone] Encounter Details Date Type Department Care Team (Late st Contact Info) Description 07/26/2023 Telephone [facility] Neuro Sleep [address] [facility] 6th Floor [address] [place] [address] Cici Cowan MA Social History [...] on file Legal Sex Female 2:22 AM CHIPPER OPERATOR Gender Identity Female 05/18/2019 7:17 PM CHIPPER OPERATOR Sexual Orientation Straight 05/18/2019 7: 17 PM CHIPPER OPERATOR documented as of this encounter Miscellaneous Notes * Telephone Encounter - Cici Cowan MA - 10/31/2023 12:24 PM CDT Order placed and faxed. * Telephone Encounter - Cici Cowan MA - 07/26/2023 3:52 PM CDT Pt reports she has not received her CPAP yet. Called [facility] and they needed the updated SS. SS faxed to [facility]. Nelly from [facility] is calling pt to give update. Pt had mask fitting appt canceled and will call back our office once she gets CPAP machine. -------Fax Transmission Report------- To: Recipient at [phone] Subject: Sleep Study Result: The transmission was successful. Explanation: All Pages Ok Pages Sent: 5 Connect Time: 4 minutes, 42 seconds Transmit Time: 07/26/2023 16:06 Transfer Rate: 9600 Status Code: 0000 Retry Count: 1 Job Id: [id number] Unique Id: [id number] Fax Line: 15 Fax Fisher Eel: [id number] documented in this encounter Plan of Treatment Not on file documented as of this encounter Visit Diagnoses Not on filedocumented in this encounter Care Teams Sort Line Worker Relationship Specialty Start Date End Date Bj Montaño MD PCP - General Family Medicine 04/15/22 02/19/24 Odilon Chester MD 1 [facility] [place] [address] Referring Physician Gastroenterology 06/06/23 Roosevelt Thomas MD 1 [facility] [place] [address] Fellow Pulmonary Disease 06/06/23 documented as of this encounter
--- OUTSIDE RECORDS SUMMARY | 2024-05-20 13:06 | XMS_ITS | Encounter Summary ---
Author Organization [facility] Address [address] [place] [address] Phone Care Team Providers Care Plant Maintenance Engineer Name Role Phone Bj Montaño MD Primary Care Provider [phone] Odilon Chester MD Unavailable [phone] Roosevelt Thomas MD Unavailable [phone] Encounter Details Date Type Department Care Team (Late st Contact Info) Description 08/24/2023 Documentation [facility] [address] [facility] 12th [place] [address] Daria Nagel Social History Tobacco Use Types Packs/Day Years [...] on file Legal Sex Female 2:22 AM DIGITAL PHOTOGRAPHER Gender Identity Female 05/18/2019 7:17 PM DIGITAL PHOTOGRAPHER Sexual Orientation Straight 05/18/2019 7: 17 PM DIGITAL PHOTOGRAPHER documented as of this encounter Progress Notes * Daria Nagel - 08/24/2023 3:29 PM CDT PA submitted for omeprazole * Fiordaliza Owen CMA - 08/24/2023 3:29 PM CDT Images from the original note were not included. PA: Omeprazole denied. documented in this encounter Plan of Treatment Not on file documented as of this encounter Visit Diagnoses Not on filedocumented in this encounter Care Teams Plant Maintenance Engineer Relationship Specialty Start Date End Date Bj Montaño MD PCP - General Family Medicine 04/15/22 02/19/24 Odilon Chester MD 1 [facility] [place] [address] Referring Physician Gastroenterology 06/06/23 Roosevelt Thomas MD 1 [facility] [place] [address] Fellow Pulmonary Disease 06/06/23 documented as of this encounter
--- OUTSIDE RECORDS SUMMARY | 2024-05-20 13:06 | XMS_ITS | Encounter Summary ---
Author Organization [facility] Address [address] [place] [address] Phone Care Team Providers Care Precision Printing Worker Name Role Phone Bj Montaño MD Primary Care Provider [phone] Odilon Chester MD Unavailable [phone] Roosevelt Thomas MD Unavailable [phone] Encounter Details Date Type Department Care Team (Late st Contact Info) Description 01/29/2024 Telephone [facility] Ophthalmology [address] [place] [address] Edith Fiore COA Social History Tobacco Use Types Packs/Day Years [...] on file Legal Sex Female 2:22 AM ACUTE CARE SURGEON Gender Identity Female 05/18/2019 7:17 PM ACUTE CARE SURGEON Sexual Orientation Straight 05/18/2019 7: 17 PM ACUTE CARE SURGEON documented as of this encounter Miscellaneous Notes * Telephone Encounter - Edith Fiore COA - 01/29/2024 8:36 AM CDT Called patient per in basket request. If patient calls back please schedule for 8AM Monday? My schedule is closed but you can add her. If she can't do that day then next available is fine as long as no worsening of symptoms. If patient needs triaged can call Edith at [phone] documented in this encounter Plan of Treatment Not on file documented as of this encounter Visit Diagnoses Not on filedocumented in this encounter Care Teams Precision Printing Worker Relationship Specialty Start Date End Date Bj Montaño MD PCP - General Family Medicine 04/15/22 02/19/24 Odilon Chester MD 1 [facility] [place] [address] Referring Physician Gastroenterology 06/06/23 Roosevelt Thomas MD 1 [facility] [place] [address] Fellow Pulmonary Disease 06/06/23 documented as of this encounter
--- OUTSIDE RECORDS SUMMARY | 2024-05-20 13:06 | XMS_ITS | Encounter Summary ---
Author Organization [facility] Address [address] [place] [address] Care Team Providers Care Wet Pour Supervisor Name Role Phone Bj Montaño MD Primary Care Provider [phone] Odilon Chester MD Unavailable [phone] Roosevelt Thomas MD Unavailable [phone] Encounter Details Date Type Department Care Team (Latest Contact Info) Description 08/25/2023 8:17 AM CDT - 08/25/2023 11:59 PM CDT Hospital Encounter [facility] [id number] [place] [phone] Diarrhea, unspecified type; Abdominal pain Discharge Disposition: Discharge to home or [...] on file Legal Sex Female 2:22 AM PULL WORKER Gender Identity Female 05/18/2019 7:17 PM PULL WORKER Sexual Orientation Straight 05/18/2019 7: 17 PM PULL WORKER documented as of this encounter Medications at [...] Procedure Name Priority Date/Time Associated Diagnosis Comments EGFR Routine 08/25/2023 8:17 AM CDT Diarrhea, unspecified type Abdominal pain DIFFERENTIAL AUTO Routine 08/25/2023 8:1 7 AM CDT Diarrhea, unspecified type Abdominal pain CBC WITH AUTO DIFFERENTIAL Routine 08/25/2023 8:17 AM CDT Diarrhea, unspecified type Abdominal pain TISSUE TRANSGLUTAMINASE, IGA Routine 08/25/2023 8:17 AM CDT Diarrhea, unspecified type Abdominal pain TSH Routine 08/25/2023 8:17 AM CDT Diarrhea, unspecified type Abdominal pain IGA Routine 08/25/2023 8:17 AM CDT Diarrhea, unspecified type Abdominal pain COMPREHENSIVE METABOLIC PANEL Routine 08/25/2023 8:17 AM CDT Diarrhea, unspecified type Abdominal pain documented in this encounter Results * eGFR (08/25/2023 8:17 AM CDT) eGFR 68 >=60 mL/min/1. 73 m2 Comment: Interpretive Data [...] interpretive data was last reviewed 2021. Blood 08/25/2023 8:17 AM CDT 08/25/2023 3:54 PM CDT us Cathi GERONIMO LAB BLOOD ORDERABLES nal Result BRITTANY [address] Department [place] [address] * Differential, auto (08/25/2023 8:17 AM CDT) Neutrophil abs 3.9 1.5 - 6.5 K/cumm Imm gran abs 0.0 0.0 - 0.1 K/cumm [facility] Lymphocyte abs 2.4 0.8 - 3.3 K/cumm [facility] Monocyte abs 0.5 0.2 - 0.8 K/cumm [facility] Eosinophil abs 0.1 0.0 - 0.5 K/cumm [facility] Basophil abs 0.1 0.0 - 0.1 K/cumm [facility] Neutrophil pct 55.6 % [facility] Comment: Interpretive Data Percent cell count reference ranges are not reported, since discordance with absolute values may lead to misinterpretation of CBC data. Current Interpretive Data was last revised on 2017. Imm gran pct 0.3 % [facility] Comment: Interpretive Data Percent cell count reference ranges are not reported, since discordance with absolute values may lead to misinterpretation of CBC data. Current Interpretive Data was last revised on 2017. Lymphocyte pct 34.4 % [facility] Comment: Interpretive Data Percent cell count reference ranges are not reported, since discordance with absolute values may lead to misinterpretation of CBC data. Current Interpretive Data was last revised on 2017. Monocyte pct 6.8 % [facility] Comment: Interpretive Data Percent cell count reference ranges are not reported, since discordance with absolute values may lead to misinterpretation of CBC data. Current Interpretive Data was last revised on 2017. Eosinophil pct 2.0 % [facility] Comment: Interpretive Data Percent cell count reference ranges are not reported, since discordance with absolute values may lead to misinterpretation of CBC data. Current Interpretive Data was last revised on 2017. Basophil pct 0.9 % [facility] Comment: Interpretive Data Percent cell count reference ranges are not reported, since discordance with absolute values may lead to misinterpretation of CBC data. Current Interpretive Data was last revised on 2017. Blood 08/25/2023 8:17 AM CDT 08/25/2023 3:49 PM CDT Cathi GERONIMO LAB BLOOD ORDERABLES Fi nal Result Performing Organization Address City/[facility]/ZIP Co de Phone Number BRITTANY [address] [place] [address] * Tissue transglutaminase IgA (TGG-IgA Ab) (08/25/2023 8:17 AM CDT) TTG ab, IgA <0.5 <=14.9 units/mL Comment: Interpretive data Negative: <15 units/mL Positive: > or equal to 15 units/mL Current interpretive data was last revised on 2016. Testing performed by: [facility], [address] [place]., [address] Blood 08/25/2023 8:17 AM CDT 08/26/2023 9:37 PM CDT Cathi GERONIMO LAB BLOOD ORDERABLES Fi nal Result Performing Organization Address City/[facility]/ZIP Co de Phone Number [facility] [address] [place] [address] * IgA (08/25/2023 8:17 AM CDT) Pathologist [facility] Immunoglobulin A 239 70 - 400 mg/dL Blood 08/25/2023 8:17 AM CDT 08/25/2023 3:49 PM CDT Cathi GERONIMO LAB BLOOD ORDERABLES Fi nal Result Performing Organization Address [facility] Co de Phone Number [facility] [address] [facility] [place] [address] * TSH (08/25/2023 8:17 AM CDT) Pathologist [facility] Thyroid Stimulating Hormone 2.28 0.30 - 4.20 mcIUnit/mL Blood 08/25/2023 8:17 AM CDT 08/25/2023 3:49 PM CDT Cathi GERONIMO LAB BLOOD ORDERABLES Fi nal Result Performing Organization Address [facility] de Phone Number [facility] [address] [facility] [place] [address] * (ABNORMAL) Comprehensive metabolic panel (08/25/2023 8:17 AM CDT) [facility] Sodium 138 135 - 145 mmol/L Potassium, pl 4.5 3.3 - 4.9 mmol/L [facility] Chloride 103 97 - 110 mmol/L [facility] CO2 26 22 - 32 mmol/L [facility] Anion gap 9 2 - 15 mmol/L [facility] BUN 18 6 - 25 mg/dL [facility] Creatinine 0.93 0.60 - 1.10 mg/dL [facility] Glucose 109 70 - 199 mg/dL [facility] Comment: Interpretive Data Fasting glucose >/= 126 [...] interpretive data was last revised 2022. Calcium 9.5 8.5 - 10.3 mg/dL [facility] Bilirubin, total 0.5 0.1 - 1.2 mg/dL [facility] Protein, pl 7.5 6.5 - 8.5 g/dL [facility] Albumin 4.1 3.5 - 5.0 g/dL [facility] Alk phos 45 40 - 130 Units/L [facility] ALT 58(H) 7 - 45 Units/L [facility] AST 65(H) 10 - 45 Units/L [facility] Blood 08/25/2023 8:17 AM CDT 08/25/2023 3:49 PM CDT us Cathi GERONIMO LAB BLOOD ORDERABLES Fi nal Result [facility] [address] Department [place] [address] * (ABNORMAL) CBC with auto differential (08/25/2023 8:17 AM CDT) WBC 7.0 3.8 - 9.9 K/cumm Hgb 14.0 11.9 - 15.5 g/dL [facility] Hct 43.8 35.6 - 45.5 % [facility] Plt 263 150 - 400 K/cumm [facility] MPV 11.7 9.1 - 12.3 fL [facility] RBC 4.63 3.90 - 5.20 M/cumm [facility] MCV 94.6 81.3 - 96.4 fL [facility] MCH 30.2 27.1 - 33.3 pg [facility] MCHC 32.0(L) 32.3 - 35.7 g/dL [facility] RDW CV 13.3 11.1 - 14.9 % [facility] RDW SD 46.2 35.7 - 48.1 fL [facility] NRBC abs 0.00 0.00 - 0.01 K/cumm [facility] Blood 08/25/2023 8:17 AM CDT 08/25/2023 3:49 PM CDT us Cathi GERONIMO LAB BLOOD ORDERABLES Fi nal Result [facility]A [address] Department [place] [address] documented in this encounter Visit Diagnoses Diagnosis Diarrhea, unspecified type Abdominal pain Abdominal pain, unspecified site documented in this encounter Care Teams Wet Pour Supervisor Relationship Specialty Start Date End Date Bj Montaño MD PCP - General Family Medicine 04/15/22 02/19/24 Odilon Chester MD 1 [facility] [place] [address] Referring Physician Gastroenterology 06/06/23 Roosevelt Thomas MD 1 [facility] [place] [address] Fellow Pulmonary Disease 06/06/23 documented as of this encounter
--- OUTSIDE RECORDS SUMMARY | 2024-05-20 13:06 | XMS_ITS | Encounter Summary ---
Author Organization [facility] Address [address] [place] [address] Phone Care Team Providers Care Mailroom Personnel Name Role Phone Bj Montaño MD Primary Care Provider [phone] Odilon Chester MD Unavailable [phone] Roosevelt Thomas MD Unavailable [phone] Encounter Details Date Type Department Care Team (Late st Contact Info) Description 10/26/2023 Telephone [facility] Neuro Sleep [address] [facility] 6th Floor [address] [place] [address] Claudia Cook, EMILY Social History [...] on file Legal Sex Female 2:22 AM MANAGER MBA Gender Identity Female 05/18/2019 7:17 PM MANAGER MBA Sexual Orientation Straight 05/18/2019 7: 17 PM MANAGER MBA documented as of this encounter Miscellaneous Notes * Telephone Encounter - Claudia Cook RPSGT - 10/26/2023 3:33 PM CDT Patient called back requesting a medium Vitera mask. Mask fitting performed at the lab. documented in this encounter Plan of Treatment Not on file documented as of this encounter Visit Diagnoses Not on filedocumented in this encounter Care Teams Mailroom Personnel Relationship Specialty Start Date End Date Bj Montaño MD PCP - General Family Medicine 04/15/22 02/19/24 Odilon Chester MD 1 [facility] [place] [address] Referring Physician Gastroenterology 06/06/23 Roosevelt Thomas MD 1 [facility] [place] [address] Fellow Pulmonary Disease 06/06/23 documented as of this encounter
--- OUTSIDE RECORDS SUMMARY | 2024-05-20 13:06 | XMS_ITS | Encounter Summary ---
Author Organization [facility] Address [address] [place] [address] Phone Care Team Providers Care Tier And Detonator Name Role Phone Bj Montaño MD Primary Care Provider [phone] Odilon Chester MD Unavailable [phone] Roosevelt Thomas MD Unavailable [phone] Reason for Visit * Consultation (Routine) - Closed Specialty Diagnoses / Procedures Referred By Contac t Referred To Contact Sleep Medicine Diagnoses DON (obstructive sleep apnea) Bj Montaño MD [facility] [address] [place] [address] Phone: tel: fax: [facility] (All Locations) Referral ID Status Reason Start Date Expiration Date V isits Requested Visits Authorized [id number] Closed Specialty Services Required 12/25/2023 01/23/2025 1 1 Encounter Details Date Type Department Care Team (Late st Contact Info) Description 01/24/2024 11:30 AM CDT Office Visit [facility] Neuro Sleep [address] [facility] 6th [address] [place] [address] Kanwal Ames DNP [address] [facility] [address] [place] [address] DON (obstructive sleep apnea) (Primary Dx); Hypersomnia; Morbid obesity with body mass index (BMI) of 40.0 to 49.9 (HCC); Periodic limb movement disorder (PLMD) Social History Tobacco Use Types Packs/Day Years [...] on file Legal Sex Female 2:22 AM 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 Gender Identity Female 05/18/2019 7:17 PM 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 Sexual Orientation Straight 05/18/2019 7: 17 PM 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 documented as of this encounter Last Filed Vital Signs Vital Sign Reading Time Taken Comments Blood Pressure 129/75 01/24/2024 11:23 AM CDT Pulse 67 01/24/2024 11:23 AM CDT Temperature 36.6 ??C (97.9 ??F) 01/24/2024 11:23 AM C DT Respiratory Rate - - Oxygen Saturation 94% 01/24/2024 11:23 AM CDT Inhaled Oxygen Concentration - - Weight 133.4 kg (294 lb) 01/24/2024 11:23 AM CDT Height 177.8 cm (5' 10 ) 01/24/2024 11:23 AM CDT Body Mass Index 42.18 01/24/2024 11:23 AM CDT documented in this encounter Patient Instructions * Patient Instructions* Kanwal Ames DNP - 01/24/2024 11:30 AM CDT Tips for CPAP/Auto-PAP use -Keep up the good work! It will only get easier with time. -Use your CPAP whenever you sleep, including naps if you can (if you take naps in your bedroom). -If the CPAP pressure feels too strong for you, use the ???ramp?? setting on your CPAP unit, so that the pressure starts low and increases slowly to the prescribed level. -Avoid things that can make sleep apnea worse, like: alcohol, smoking, some medications (like sedatives,muscle relaxants and some sleeping pills) and not getting enough sleep. -Weight gain can make sleep apnea worse. If you are of normal weight, try to stay at your current weight. If you are overweight or obese, weight loss should be an important part of your treatment plan. -Clean your CPAP mask and equipment on a regular basis. Wash all mask parts that touch your face daily. Wash the entire mask, tubing and headgear once per week. Use warm water with a mild soap, such as dish soap. -Empty any leftover water from the humidifier chamber each morning. -Replace your CPAP mask, tubing and filters on a regular basis (usually every 4- 6 months). Sometimes, mask liners or pillows need to be replaced every month. Call your [employer] medical equipment (DME)company to find out when you are due for replacement supplies. -Take your CPAP with you when you travel. If you travel outside of the [facility], you may need an electrical adapter. When flying, you should take your CPAP as a carry-on item, but it should not count towards your carry-on allotment. Airport security personnel is usually familiar with CPAP equipment. PAP Cleaning Instructions: Daily Cleaning Wipe down [...] towel or hung on a hook or felt hanger. Wipe down your CPAP machine with [...] thoroughly rinsing and then placing in your curriculum supervisor's top rack for washing. And keep it clean by using only distilled water to prevent mineral deposits that can build up and cause damage to your machine. Change disposable filters every 1-2 months. documented in this encounter Progress Notes * Kanwal Ames DNP - 01/24/2024 11:30 AM CDT Images from the original note were not included. Patient Name: JOSY POOLE Medical Record Number (MRN): [id number] Date of (): 1960 Encounter Date: 01/24/2024 [facility] Chief Complaint Josy Poole is a 64 y.o. female seen today for follow up regarding DON. Referring provider: Bj Montaño MD HPI 64 y.o. patient with history of anxiety, depression, hypertension, GERD, NAFLD, COVID infection, recurrent sinus infections, diverticulitis s/p colectomy, seasonal allergies who presents for follow up of obstructive sleep apnea. HSAT on 03/07/2023 (Wt: 298 lb) showed negative for DON AHI 3% 2.6. PSG on 06/26/2023 (Wt 295 lb) showed severe DON with 3% AHI 31.5 and 4% AHI 17.4 Lowest SpO2: 76 %, Time spent SpO2 <= 89%: 7.9 min PLM index: 54/h, arousal 29.2 /h Titration showed 12 cm was optimal. Residual AHI 5.1 DME: [facility] Current Mask: full facial mask Data download from the machine Data range: 12/24/2019 through 01/22/2024 Compliance rate (>4h): 87 % Average usage: 7 hours 4 minute Current pressure setting: Auto setting 10-16 cm, median 10.5 max 13.5 Median leaks: 17 point L/min, 95th %: 73 AHI: 5.1 by last 2 weeks less than 1.0 EPR3 Change in Sleep Symptoms: Post therapy, pt reports overall improved symptoms of snoring. Pt feels more awake and alert, slightly better quality of sleep. Today's ESS Mcallen Sleepiness Scale: 2 (scored 6 initially) PAP Side effects: Mask discomfort: no Pressure intolerance: no Nasal irritation: no Nasal congestion: no Nasal dryness: no Dry mouth: no Abdominal bloating/gas: no Breathing difficulties: YES only sometimes Skin irritation: no Cleaning and maintaining mask/tubing as recommended:YES Current sleep Schedule: Bed/wake time: 10 p.m. through 7 a.m. Sleep latency: 15 minutes Awakenings: 2-4 for bathroom use Wake after sleep onset: Immediately Naps: no longer naps RLS/PLMD; She weaned off Effexor and symptoms are improving post discontinuation. Labs were ok. Gabapentin 100 mg was prescribed but she did not start. She rather not take this. She denies symptoms of insomnia, narcolepsy (cataplexy, sleep related hallucination/paralysis), parasomnia. Interval medical history: none HPI of the initial visit Jan 2023 She was referred to the [facility] by her professor of genetics for DON evaluation. Her STOP-BANG score was [...] Use of tablet/phone/TV at night before bed:No Mcallen sleepiness scale today is 6/24, which is [...] TOPICALLY TO THE AFFECTED AREA TWICE DAILY cholecalciferol (Vitamin D3) 2000 unit capsule 1 capsule (2,000 Units total) cyanocobalamin (Vitamin B-12) 1,000 mcg sublingual tablet Take 1 tablet (1,000 mcg total) by mouth daily dicyclomine (BENTYL) 20 mg tablet Take 1 tablet (20 mg total) by mouth 3 (three) times a day as needed (abdominal cramping and diarrhea) 90 tablet 11 diphenhydrAMINE (BenadryL) 25 mg capsule Take 1 tablet/capsule (25 mg total) by mouth as needed foritching losartan-hydroCHLOROthiazide (HYZAAR) 50-12.5 mg per tablet 1/2 tab am meclizine (ANTIVERT) 25 mg tablet Take 1 tablet (25 mg total) by mouth as needed for dizziness omeprazole (PriLOSEC) 40 mg capsule Take 1 capsule (40 mg total) by mouth 2 (two) times a day before breakfast and dinner 60 capsule 2 ondansetron (ZOFRAN) 4 mg tablet Take 1 tablet (4 mg total) by mouth every 8 (eight) hours as needed for nausea or vomiting SUMAtriptan (IMITREX) 100 mg tablet budesonide-formoteroL (SYMBICORT) 160-4.5 mcg/actuation inhaler Inhale 2 puffs 2 (two) times a day Rinse mouth with water after use. Do not swallow. 1 each 3 No current facility-administered medications for this visit. Patient Active Problem List Diagnosis Diverticulitis Achilles tendinitis of left lower extremity NAFLD (nonalcoholic fatty liver disease) Retinal tear of left eye Posterior vitreous detachment, both eyes Combined form of age-related cataract, both eyes Gastritis without bleeding Gastric polyp Dyspnea on exertion DON (obstructive sleep apnea) Morbid obesity with body mass index (BMI) of 40.0 to 49.9 (HCC) Past Medical History: Diagnosis Date Anxiety Arthritis Right ankle and knee Cholecystitis Colorectal polyps Depression Diverticulitis GERD (gastroesophageal reflux disease) Hypertension 2 years Migraines 2000 NAFLD (nonalcoholic fatty liver disease) Ovarian cyst Rosacea Past Surgical History: Procedure Laterality Date CHOLECYSTECTOMY 2013 COLECTOMY 04/18/2019 Laparoscopic sigmoid colectomy COLONOSCOPY 10/03/2018 HYSTERECTOMY 2000 TLH, R SO LAPAROSCOPIC OVARIAN CYSTECTOMY LESIONECTOMY Right 2009 benign skin lesion removed from anterior chest SINUS SURGERY 1985 SKIN CANCER EXCISION Right 1994 V-Y flap R jewish for BCCa TERATOMA EXCISION Left 1995 L SO TONSILLECTOMY AND ADENOIDECTOMY 1963 TONSILLECTOMY AND ADENOIDECTOMY 1961 Family History Problem Relation Age of Onset Colon cancer Mother Hypertension Mother Gallbladder disease Mother Cancer Mother Depression Mother Gallbladder disease Father Diverticulosis Father Heart attack Father 71 fatal day following C Diverticulosis Brother Diabetes Maternal Grandmother Malig Hyperthermia Neg Hx Anesthesia problems Neg Hx Sudden Cardiac Neg Hx Stroke Neg Hx Bleeding Disorder Neg Hx Clotting disorder Neg Hx Social History Marital Status: 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 Lab Results Component Value Date TSH 2.28 08/25/2023 TSH 2.45 01/11/2023 CO2 26 08/25/2023 CO2 28 01/11/2023 FERRITIN 97 10/26/2023 IRON 58 10/26/2023 TRANSFERSAT 20 10/26/2023 HGB 14.0 08/25/2023 HGB 14.4 01/11/2023 HCT 43.8 08/25/2023 HCT 43.7 01/11/2023 WBC 7.0 08/25/2023 WBC 7.4 01/11/2023 25HYDROVITD 37 10/26/2023 Lab Results Component Value Date CREATININE 0.93 08/25/2023 CREATININE 1.02 01/11/2023 AST 46 (H) 11/27/2023 AST 65 (H) 08/25/2023 ALT 47 (H) 11/27/2023 ALT 58 (H) 08/25/2023 Vital Signs Vitals: 01/24/24 1123 BP: 129/75 BP Location: Left arm Patient Position: Sitting Pulse: 67 Temp: 36.6 ??C (97.9 ??F) TempSrc: Temporal SpO2: 94% Weight: 133.4 kg (294 lb) Height: 177.8 cm (5' 10 ) Body mass index is 42.18 kg/m??. Physical Exam GENERAL EXAM: General: Well [...] and gait. Assessment/Plan The pt is a 64 y.o. female with history of anxiety, depression, hypertension, GERD, NAFLD, COVID infection, recurrent sinus infections, diverticulitis s/p colectomy, seasonal allergies who has symptoms suggestive of obstructive sleep apnea including snoring. [...] -Continue current setting of 10-16 cm with FFM. 2. Hypersomnia -Likely multifactorial secondary to sleep fragmentation associated with uncontrolled sleep disordered breathing and insufficient sleep. -Pt has shown improvement. -Will monitor response to therapy for the above. -Advised to not drive while sleepy. 3. Morbid Obesity -The effects of obesity, obstructive sleep apnea syndrome and other morbidities were discussed. -Recommended diet and exercise for ideal body weight. 4 Restless legs syndrome/PLMD -The history is suggestive of restless leg syndrome/PLMD. We explained that RLS may be worsened by underlying iron depletion, sleep deprivation, or untreated sleep disordered breathing, or use of antihistamine, antiemetics, or antidepressants. -PLMI was 54/h with arousal 29.2/h. but labs were unremarkable. -She weaned off Effexor and symptoms are improving post discontinuation. -Will discontinue gabapentin 100 mg as she did not need to start. Pt to notify me if she would liketo try. Will follow up in 1 year. Future Appointments Date Time Provider Department Center 02/28/2024 8:30 AM Angela Merritt MD [facility] Allergy 03/11/2024 10:00 AM Betina Gage NP GI [id number] 05/02/2024 12:45 PM Odilon Chester MD GI [id number] [facility] 07/02/2024 2:00 PM PFT 1 CAM 8D PFT CAM 8D [facility] Pul[facility] 07/02/2024 2:30 PM Evan Finch MD PUL CAM 8B [facility] 07/17/2024 1:00 PM Anu Ramos MD PCP IM 250 PC 09/16/2024 9:00 AM Avelino Vásquez OD [facility] 01/27/2025 11:30 AM Kanwal Ames DNP SLEEP CTR 40 NL Thank you for allowing me to participate in the care of this pt. Please feel free to contact me with any questions. I was with the patient during the session for 20 minutes. In addition to the time spent [...] on care coordination. My total encounter time today was 35 minutes which was spent in the activities documented in the note. This time does not include time spent in any separately reportable services. Kanwal Ames DNP, WASHING MACHINE LOADER-C Sleep Medicine Center, Department of Neurology [facility] Voice recognition software [employer] was used dictate and transcribe this document. Scleroscope Tester variances may occur. Despite proofreading, typographical errors may occur documented in this encounter Plan of Treatment Not on file documented as of this encounter Visit Diagnoses Diagnosis DON (obstructive sleep apnea)- Primary Obstructive sleep apnea (adult) (pediatric) Hypersomnia Hypersomnia, unspecified Morbid obesity with body mass index (BMI) of 40.0 to 49.9 (HCC) Periodic limb movement disorder (PLMD) Periodic limb movement disorder documented in this encounter Discontinued Medications Medication Sig Discontinue Reason Start Date End Da te venlafaxine (EFFEXOR) 37.5 mg tablet Other 12/27/2023 01/24/2024 gabapentin (NEURONTIN) 100 mg capsuleIndications:Restl ess Legs Syndrome Take 1 cap nightly, and titrate up to 300 mg as needed. Other 10/26/2023 01/24/2024 documented as of this encounter Historical Medications * This list may reflect changes made after this encounter. cyanocobalamin (Vitamin B-12) 1,000 mcg sublingual tablet Take 1 tablet (1,000 mcg total) by mouth daily ondansetron (ZOFRAN) 4 mg tablet Take 1 tablet (4 mg total) by mouth every 8 (eight) hours as needed for nausea or vomiting diphenhydrAMINE (BenadryL) 25 mg capsule Take 1 tablet/capsule (25 mg total) by mouth as needed for itching 4 meclizine (ANTIVERT) 25 mg tablet Take 1 tablet (25 mg total) by mouth as needed for dizziness 4 added in this encounter Orders Outpatient Referral Count Last Ordered Date Fir st Ordered Date AMB REFERRAL TO SLEEP MEDICINE 1 01/24/2024 documented in this encounter Care Teams Tier And Detonator Relationship Specialty Start Date End Date Bj Montaño MD PCP - General Family Medicine 04/15/22 02/19/24 Odilon Chester MD 1 [facility] [place] [address] Referring Physician Gastroenterology 06/06/23 Roosevelt Thomas MD 1 [facility] [place] [address] Fellow Pulmonary Disease 06/06/23 documented as of this encounter
--- OUTSIDE RECORDS SUMMARY | 2024-05-20 13:06 | XMS_ITS | Encounter Summary ---
Author Organization [facility] Address [address] [place] [address] Phone Care Team Providers Care Canal Superintendent Name Role Phone Bj Montaño MD Primary Care Provider Odilon Chester MD Unavailable [phone] Roosevelt Thomas MD Unavailable [phone] Encounter Details Date Type Department Care Team (Late st Contact Info) Description 09/04/2023 Telephone [facility] Gastroenterology [address] 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 I informed them that I have sent records twice now once with the initial PA andagain with the Appeal. They are going to fax over the denial since we never received that and I will see if there is anything we can do. * Telephone Encounter - Shayna Cotter - 09/04/2023 11:39 AM CDT Spoke with [employer] and they said an appeal would have to be placed to try and get Omeprazole 40 mg covered. Appeal letter submitted along with last office note to see if it would be approved. Waiting for a response. * Telephone Encounter - Shayna Cotter - 09/04/2023 11:38 AM CDT ----- Message from JUANPABLO Chamorro sent at 08/31/2023 3:20 PM CDT ----- She told me that her insurance stopped covering pantoprazole which is why I changed to omeprazole. Should I send pantoprazole back over? ----- Message ----- From: Daria Nagel Sent: 08/31/2023 10:50 AM CDT To: JUANPABLO Chamorro; Esperanza Best LPN Omeprazole twice daily is not covered. PA was denied. Can purchase OTC or switch to pantoprazole documented in this encounter Plan of Treatment Not on file documented as of this encounter Visit Diagnoses Not on filedocumented in this encounter Care Teams Canal Superintendent Relationship Specialty Start Date End Date Bj Montaño MD PCP - General Family Medicine 04/15/22 02/19/24 Odilon Chester MD 1 [facility] [place] [address] Referring Physician Gastroenterology 06/06/23 Roosevelt Thomas MD 1 [facility] [place] [address] Fellow Pulmonary Disease 06/06/23 documented as of this encounter
--- OUTSIDE RECORDS SUMMARY | 2024-05-20 13:06 | XMS_ITS | Encounter Summary ---
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 MANAGER Gender Identity Female 05/18/2019 7:17 PM OPERATIONS RESEARCH GROUP MANAGER Sexual Orientation Straight 05/18/2019 7: 17 PM OPERATIONS RESEARCH GROUP MANAGER documented as of this encounter Plan of Treatment Not on file documented as of this encounter Visit Diagnoses Diagnosis DON (obstructive sleep apnea)- Primary Obstructive sleep apnea (adult) (pediatric) documented in this encounter Care Teams Conduit Worker Relationship Specialty Start Date End Date Bj Montaño MD PCP - General Family Medicine 04/15/22 02/19/24 Odilon Chester MD 1 [facility] [place] [address] Referring Physician Gastroenterology 06/06/23 Roosevelt Thomas MD 1 [facility] [place] [address] Fellow Pulmonary Disease 06/06/23 documented as of this encounter
--- OUTSIDE RECORDS SUMMARY | 2024-05-20 13:06 | XMS_ITS | Encounter Summary ---
Author Organization [facility] Address [address] [place] [address] Phone Care Team Providers Care Food Preservation Scientist Name Role Phone Bj Montaño MD Primary Care Provider [phone] Odilon Chester MD Unavailable [phone] Roosevelt Thomas MD Unavailable Reason for Referral * Diagnostic Imaging (Routine) - Pending Review Specialty Diagnoses / Procedures Referred By Contac t Referred To Contact Diagnoses Elevated LFTs Procedures US RUQ Cathi Herzog PA [address] [place] [address] Phone: tel: fax: [address] [address] Referral ID Status Reason Start Date Expiration Date V isits Requested Visits Authorized [id number] Pending Review 09/06/2023 10/05/2024 1 1 Encounter Details Date Type Department Care Team (Late st Contact Info) Description 09/06/2023 Orders Only [facility] Gastroenterology [address] [facility] 2nd Floor [address] [place] [address] Esperanza Best LPN Elevated LFTs (Primary Dx) Social History Tobacco Use Types [...] on file Legal Sex Female 2:22 AM SOCIAL 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 Gender Identity Female 05/18/2019 7:17 PM SOCIAL 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 Sexual Orientation Straight 05/18/2019 7: 17 PM SOCIAL 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 documented as of this encounter Plan of Treatment Not on file documented as of this encounter Results * US RUQ (09/08/2023 [...] in this encounter Visit Diagnoses Diagnosis Elevated LFTs- Primary Other abnormal blood chemistry Elevated LFTs Other abnormal blood chemistry documented in this encounter Care Teams Food Preservation Scientist Relationship Specialty Start Date End Date Bj Montaño MD PCP - General Family Medicine 04/15/22 02/19/24 Odilon Chester MD 1 [facility] [place] [address] Referring Physician Gastroenterology 06/06/23 Roosevelt Thomas MD 1 [facility] [place] [address] Fellow Pulmonary Disease 06/06/23 documented as of this encounter
--- OUTSIDE RECORDS SUMMARY | 2024-05-20 13:06 | XMS_ITS | Encounter Summary ---
Author Organization [facility] Address [address] [place] [address] Phone Care Team Providers Care Antique Collector Name Role Phone Bj Montaño MD Primary Care Provider [phone] Odilon Chester MD Unavailable [phone] Roosevelt Thomas MD Unavailable [phone] Reason for Referral * Procedure (Routine) - Authorized Specialty Diagnoses / Procedures Referred By Sisi de león Referred To Contact Diagnoses Dyspnea on exertion Procedures Pulmonary Function Test -[facility]- [facility]; Meth Challenge Stephani James NP [address] [place] [address] Phone: tel: fax: [facility] (All Locations) Referral ID Status Reason Start Date Expiration Date V isits Requested Visits Authorized [id number] Authorized 12/20/2023 01/18/2025 99 99 Reason for Visit * Procedure (Routine) - Authorized Specialty Diagnoses / Procedures Referred By Contac sarthak Referred To Contact Diagnoses Dyspnea on exertion Procedures Pulmonary Function Test -[facility]- [facility]; Meth Challenge Stephani James NP [address] [place] [address] Phone: tel: fax: [facility] (All Locations) Referral ID Status Reason Start Date Expiration Date V isits Requested Visits Authorized [id number] Authorized 12/20/2023 01/18/2025 99 99 Encounter Details Date Type Department Care Team (Latest Contact Info) Description 12/29/2023 9:24 AM CDT - 12/29/2023 11:59 PM CDT Hospital Encounter [facility] Pulmonary [address] [place] [address] Dyspnea on exertion Discharge Disposition: Discharge to home or self [...] file Legal Sex Female 2:22 AM DIGITAL MEDIA STRATEGIST Gender Identity Female 05/18/2019 7:17 PM DIGITAL MEDIA STRATEGIST Sexual Orientation Straight 05/18/2019 7: 17 PM DIGITAL MEDIA STRATEGIST documented as of this encounter Medications at [...] am 10/14/2020 SUMAtriptan (IMITREX) 100 mg tablet gabapentin (NEURONTIN) 100 mg capsuleIndicatio ns:Restless Legs Syndrome Take 1 cap nightly, and titrate up to 300 mg as needed. 90 capsule 10/26/2023 4 omeprazole (PriLOSEC) 40 mg capsule Take 1 capsule (40 mg total) by mouth 2 (two) times a day 60 capsule 3 08/24/2023 4 venlafaxine (EFFEXOR) 37.5 mg tablet 12/27/2023 4 documented as of this encounter Discharge Disposition Disposition Code Departure Means Destination Discharge to home or self care documented in this encounter Plan of Treatment Not on file documented as of this encounter Procedures Procedure Name Priority Date/Time Associated Diagnosis Comments PULMONARY FUNCTION TEST (PFT) Routine 12/29/2023 10:38 AM CDT Dyspnea on exertion documented in this encounter Results * Pulmonary Function Test - (12/29/2023 10:38 AM CDT) FVC PRE 3.45 L [facility] FVC %PRE PRED 94 % [facility] FVC POST 3.11 L [facility] FVC %POST PRED 85 % [facility] FEV1 PRE 2.79 L [facility] FEV1 %PRE PRED 99 % [facility] FEV1 POST 2.63 L [facility] FEV1 %POST PRED 93 % [facility] FEV1/FVC PRE 80.9 % [facility] FEV1/FVC POST 84.6 % [facility] Anatomical Region Laterality Modality PFT 12/29/2023 9:34 AM CDT Narrative 12/29/2023 11:21 AM CDT PFT performed at:->[facility] Procedure:->Meth Challenge Pulmonary Function Test Interpretation SPIROMETRY: Spirometry is normal. There is no significant airways reactivity to the administration of methacholine. The inspiratory loop is normal. Impression: There is no ventilatory defect. There is no significant airways reactivity to the administration of methacholine. The attending pulmonary physician certifies a physician presence in the [facility] during the administration of aerosolized bronchodilator. The attending pulmonary physician certifies that he/she has reviewed and interpreted the graphic and numerical data of this pulmonary function study and agrees with the written final report. The lower limit of normal for PaO2 and %HbO2 is age dependent. However, the [facility] Pulmonary Function Laboratory defines hypoxemia as a PaO2 <56 mm Hg or a %HbO2 <89%. Stephani James INSIDE CONTRACTOR SALES PFT ORDERABLES Final Result documented in this encounter Visit Diagnoses Diagnosis Dyspnea on exertion Other dyspnea and respiratory abnormality documented in this encounter Care Teams Antique Collector Relationship Specialty Start Date End Date Bj Montaño MD PCP - General Family Medicine 04/15/22 02/19/24 Odilon Chester MD 1 [facility] [place] [address] Referring Physician Gastroenterology 06/06/23 Roosevelt Thomas MD 1 [facility] [place] [address] Fellow Pulmonary Disease 06/06/23 documented as of this encounter
--- OUTSIDE RECORDS SUMMARY | 2024-05-20 13:06 | XMS_ITS | Encounter Summary ---
Author Organization [facility] Address [address] [place] [address] Phone Care Team Providers Care Accountant Budget Name Role Phone Bj Montaño MD Primary Care Provider [phone] Odilon Chester MD Unavailable [phone] Roosevelt Thomas MD Unavailable [phone] Reason for Referral * (Routine) - Pending Review Specialty Diagnoses / Procedures Referred By Contac t Referred To Contact Diagnoses DON (obstructive sleep apnea) Procedures Miscellaneous DME Kanwal Ames DNP Phone: tel: fax: Referral ID Status Reason Start Date Expiration Date V isits Requested Visits Authorized [id number] Pending Review 10/27/2023 11/25/2024 1 1 Reason for Visit * Reason Onset Date Comments DME 10/27/2023 Encounter Details Date Type Department Care Team (Late st Contact Info) Description 10/27/2023 Telephone [facility] Neuro Sleep [address] 6[address] [place] [address] Cici Cowan MA DME Social History Tobacco Use Types Packs/Day Years [...] on file Legal Sex 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 -------Fax Transmission Report------- To: Recipient at [phone] Subject: DME Order and Note 2 Result: The transmission was successful. Explanation: All Pages Ok Pages Sent: 11 Connect Time: 10 minutes, 10 seconds Transmit Time: 10/27/2023 10:53 Transfer Rate: 9600 Status Code: 0000 Retry Count: 0 Job Id: [id number] Unique Id: [id number] Fax Line: 20 Fax Physician Support Coordinator: [id number] * Telephone Encounter - Cici Cowan MA - 10/27/2023 10:46 AM CDT ----- Message from Claudia Wolf sent at 10/26/2023 3:37 PM CDT ----- Nash Bolanos, Please fax mask order to [facility] per patient request. The mask is Medium Vitera . Mask fitting was done at the sleep center. Thank You, Claudia documented in this encounter Plan of Treatment Not on file documented as of this encounter Visit Diagnoses Diagnosis DON (obstructive sleep apnea)- Primary Obstructive sleep apnea (adult) (pediatric) documented in this encounter Orders General Supply Count Last Ordered Date First Or dered Date MISCELLANEOUS DME 1 10/27/2023 documented in this encounter Care Teams Accountant Budget Relationship Specialty Start Date End Date Bj Montaño MD PCP - General Family Medicine 04/15/22 02/19/24 Odilon Chester MD 1 [facility] [place] [address] Referring Physician Gastroenterology 06/06/23 Roosevelt Thomas MD 1 [facility] [place] [address] Fellow Pulmonary Disease 06/06/23 documented as of this encounter
--- OUTSIDE RECORDS SUMMARY | 2024-05-20 13:06 | XMS_ITS | Encounter Summary ---
Author Organization [facility] Address [address] [place] [address] Care Team Providers Care Artificial Log Machine Operator Name Role Phone Odilon Chester MD Unavailable [phone] Roosevelt Thomas MD Unavailable [phone] Leticia Thorne NP Primary Care Provider [phone] Reason for Referral * Diagnostic Imaging (Routine) - Pending Review Specialty Diagnoses / Procedures Referred By Contetta t Referred To Contact Diagnoses Left ankle pain, unspecified chronicity Procedures XR Ankle Left 3 [place] [address] [place] [address] Phone: tel: fax: [address] [address] Referral ID Status Reason Start Date Expiration Date V isits Requested Visits Authorized [id number] Pending Review 03/21/2024 04/20/2025 1 1 OF EDUCATION Reason for Visit * Diagnostic Imaging (Routine) - Pending Review Specialty Diagnoses / Procedures Referred By Contac t Referred To Contact Diagnoses Left ankle pain, unspecified chronicity Procedures XR Ankle Left 3 [place] [address] [place] [address] Phone: tel: fax: [address] [address] Referral ID Status Reason Start Date Expiration Date V isits Requested Visits Authorized [id number] Pending Review 03/21/2024 04/20/2025 1 1 Encounter Details Date Type Department Care Team (Latest Contact Info) Description 03/25/2024 10:38 AM DEAN OF EDUCATION - 03/25/2024 11:59 PM DEAN OF EDUCATION Hospital Encounter [facility] [address] [facility] [address] [place] [id number] Left ankle pain, unspecified chronicity Discharge Disposition: [...] on file Legal Sex Female 2:22 AM DEAN OF EDUCATION Gender Identity Female 05/18/2019 7:17 PM DEAN OF EDUCATION Sexual Orientation Straight 05/18/2019 7: 17 PM DEAN OF EDUCATION documented as of this encounter Medications at [...] by mouth daily dicyclomine (BENTYL) 20 mg tabletIndications :Irritable Bowel Syndrome Take 1 tablet (20 mg total) by mouth 3 (three) times a day as needed (abdominal cramping and diarrhea) 90 tablet 11 08/24/2023 5 losartan-hydroCHL OROthiazide (HYZAAR) 50-12.5 mg per tablet 1/2 tab am 10/14/2020 melatonin/soy/coh osh/calc carb (ESTROVEN NIGHTTIME, GREGORIO-MELTN, ORAL) 01/22/2024 ondansetron (ZOFRAN) 4 mg tablet Take 1 tablet (4 mg total) by mouth every 8 (eight) hours as needed for nausea or vomiting SUMAtriptan (IMITREX) 100 mg tablet omeprazole (PriLOSEC) 40 mg capsuleIndication s:Gastroesophagea l reflux disease, unspecified whether esophagitis present Take 1 capsule (40 mg total) by mouth 2 (two) times a day before breakfast and dinner 60 capsule 2 01/05/2024 4 documented as of this encounter Discharge Disposition Disposition Code Departure Means Destination Discharge to home or self care documented in this encounter Plan of Treatment Not on file documented as of this encounter Procedures Procedure Name Priority Date/Time Associated Diagnosis Comments XR ANKLE LEFT 3 OR MORE VIEWS Schedule Routine, Read Routine (OP Routine) 03/25/2024 10:46 AM DEAN OF EDUCATION Left ankle pain, unspecified chronicity documented in this encounter Results * XR Ankle Left 3 or More Views (03/25/2024 10:46 AM DEAN OF EDUCATION) Anatomical Region Laterality Modality Lower Extremities, Ankle Left Digital Radiography 03/25/2024 11:5 7 AM DEAN OF EDUCATION Impressions 03/25/2024 11:57 AM DEAN OF EDUCATION There are extensive enthesopathic changes along the [...] Bina Bird M.D. Narrative 03/25/2024 11:57 AM DEAN OF EDUCATION EXAMINATION: 1. ??3 VIEWS OF THE LEFT [...] signed by: Bina Bird M.D. Miguel Bryson DERRICK BOAT OPERATOR IMG XR PROCEDURES Final Re sult documented in this encounter Visit Diagnoses Diagnosis Left ankle pain, unspecified chronicity documented in this encounter Care Teams Artificial Log Machine Operator Relationship Specialty Start Date End Date Leticia Thorne, DERRICK BOAT OPERATOR [address] [place] [address] PCP - General Family Medicine 02/20/24 Odilon Chester MD [address] [facility] [address] [place] [address] Referring Physician Gastroenterology 06/06/23 Roosevelt Thomas MD [address] [facility] [address] [place] [address] Fellow Pulmonary Disease 06/06/23 documented as of this encounter
--- OUTSIDE RECORDS SUMMARY | 2024-05-20 13:06 | XMS_ITS | Encounter Summary ---
Author Organization [facility] Address [address] [place] [address] Phone Care Team Providers Care Chute Tapper Name Role Phone Bj Montaño MD Primary Care Provider [phone] Odilon Chester MD Unavailable [phone] Roosevelt Thomas MD Unavailable [phone] Reason for Visit * Reason Comments Spots and/or Floaters Encounter Details Date Type Department Care Team (Late st Contact Info) Description 01/31/2024 8:00 AM CDT Office Visit [facility] [address] [place] [phone] Avelino Vásquez, OD [address] [facility] [address] Posterior vitreous detachment, both eyes (Primary Dx); Retinal tear of left eye Social History Tobacco Use Types Packs/Day Years [...] on file Legal Sex Female 2:22 AM ASSEMBLY MEMBER Gender Identity Female 05/18/2019 7:17 PM ASSEMBLY MEMBER Sexual Orientation Straight 05/18/2019 7: 17 PM ASSEMBLY MEMBER documented as of this encounter Progress Notes * Avelino Vásquez, OD - 01/31/2024 8:00 AM CDT Reason for Visit Today Chief Complaint Spots and/or Floaters ASSESSMENT/ORDERS/PROCEDURES PERFORMED TODAY Problem List Eye/Vision Problems Posterior vitreous detachment, both eyes - Primary Current Assessment & Plan Worsening floaters OS then OD with a few flashes temporally OD recently. Attached 360 with good laser barricade around inferior tear OS. Gave strict return precautions- call if any new floaters, flashes, or curtain/veil over vision. Otherwise can follow with previously scheduled appointment. Retinal tear of left eye Current Assessment & Plan S/p retinopexy 07/2022 Doing well. Well barricaded. Reviewed strict return precautions. The signs and symptoms of retinal detachment, tears, infection, elevated intra- ocular pressure werereviewed with the patient. Patient knows to call should they have any of the symptoms. PLAN FOR NEXT VISIT Return for keep scheduled appt. documented in this encounter Miscellaneous Notes * Assessment & Plan Note - Avelino Vásquez, OD - 01/31/2024 8:45 AM CDT Associated Problem(s): Retinal tear of left eye S/p retinopexy 07/2022 Doing well. Well barricaded. Reviewed strict return precautions. * Assessment & Plan Note - Avelino Vásquez, OD - 01/31/2024 8:44 AM CDT Associated Problem(s): Posterior vitreous detachment, both eyes Worsening floaters OS then OD with a few flashes temporally OD recently. Attached 360 with good laser barricade around inferior tear OS. Gave strict return precautions- call if any new floaters, flashes, or curtain/veil over vision. Otherwise can follow with previously scheduled appointment. documented in this encounter Plan of Treatment Not on file documented as of this encounter Visit Diagnoses Diagnosis Posterior vitreous detachment, both eyes- Primary Vitreous degeneration Retinal tear of left eye documented in this encounter Eye Exam Visual Acuity (Snellen - Linear) Right eye Left eye Dist cc 20/25 +1 20/30 -1 Dist ph cc 20/20 Correction: Glasses Slow with OS pinhole Tonometry (Applanation, 8:07 AM) Right eye Left eye Pressure 13 13.5 Pupils Dark Light Shape React APD Right eye 5 3 Round Brisk None Left eye 5 3 Round Brisk None Visual Wheeler Right eye Left eye Full Full Extraocular Movement Right eye Left eye Full Full Neuro/Psych Oriented x3: Yes Mood/Affect: Anxious Dilation Both eyes: 1.0% Mydriacyl, 2 .5% Phenylephrine @ 8:07 AM External Exam Right eye Left eye [...] Vitreous PVD (Clark ring), vi t syn, negative Descanso's sign PVD, Vitreous syneresis Disc Normal Normal C/D Ratio 0.1 0.1 Macula Normal Normal Vessels Normal Normal Periphery Small patch of latti ce temporally, Clark ring horseshoe tear at 5 oclock far periphery s/p barricad, Laser scar no new tears or detachments Care Teams Chute Tapper Relationship Specialty Start Date End Date Bj Montaño MD PCP - General Family Medicine 04/15/22 02/19/24 Odilon Chester MD 1 [facility] [place] [address] Referring Physician Gastroenterology 06/06/23 Roosevelt Thomas MD 1 [facility] [place] [address] Fellow Pulmonary Disease 06/06/23 documented as of this encounter
--- OUTSIDE RECORDS SUMMARY | 2024-05-20 13:06 | XMS_ITS | Encounter Summary ---
Author Organization [facility] Address [address] [place] [address] Phone Care Team Providers Care Information Technology Technician Name Role Phone Bj Montaño MD Primary Care Provider [phone] Odilon Chester MD Unavailable [phone] Roosevelt Thomas MD Unavailable Encounter Details Date Type Department Care Team (Late st Contact Info) Description 09/12/2023 Documentation [facility] Gastroenterology [address] 12th [place] [address] [place] [address] Shayna Cotter Social History Tobacco [...] on file Legal Sex Female 2:22 AM 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 OPERATOR Gender Identity Female 05/18/2019 7:17 PM PLUG DRILL OPERATOR Sexual Orientation Straight 05/18/2019 7: 17 PM PLUG DRILL OPERATOR documented as of this encounter Progress Notes * Raymon Cottera - 09/12/2023 11:41 AM CDT Error documented in this encounter Plan of Treatment Not on file documented as of this encounter Visit Diagnoses Not on filedocumented in this encounter Care Teams Information Technology Technician Relationship Specialty Start Date End Date Bj Montaño MD PCP - General Family Medicine 04/15/22 02/19/24 Odilon Chester MD 1 [facility] [place] [address] Referring Physician Gastroenterology 06/06/23 Roosevelt Thomas MD 1 [facility] [place] [address] Fellow Pulmonary Disease 06/06/23 documented as of this encounter
--- OUTSIDE RECORDS SUMMARY | 2024-05-20 13:06 | XMS_ITS | Encounter Summary ---
Author Organization [facility] Address [address] [place] [address] Care Team Providers Care Certified Ophthalmic Medical Technician Name Role Phone Bj Montaño MD Primary Care Provider [phone] Odilon Chester MD Unavailable [phone] Roosevelt Thomas MD Unavailable [phone] Encounter Details Date Type Department Care Team (Latest Contact Info) Description 10/26/2023 11:16 AM CDT - 10/26/2023 11:59 PM CDT Hospital Encounter [facility] [id number] [place] [phone] Iron deficiency; Vitamin D deficiency Discharge Disposition: Discharge to home or self [...] on file Legal Sex Female 2:22 AM HOSPITAL ADMITTING CLERK Gender Identity Female 05/18/2019 7:17 PM HOSPITAL ADMITTING CLERK Sexual Orientation Straight 05/18/2019 7: 17 PM HOSPITAL ADMITTING CLERK documented as of this encounter Medications at [...] day 60 capsule 3 08/24/2023 4 venlafaxine 225 mg tablet extended release 24hr 24 hr tablet 05/12/2022 4 documented as of this encounter Discharge Disposition Disposition Code Departure Means Destination Discharge to home or self care documented in this encounter Miscellaneous Notes * Result Encounter Note - Cici Cowan MA - 10/26/2023 11:59 PM CDT Spoke to pt relayed results. Pt verbalized understanding. * Result Encounter Note - Cici Cowan MA - 10/26/2023 11:59 PM CDT Spoke to pt relayed results. Pt verbalized understanding. * Result Encounter Note - Kanwal Ames DNP - 10/26/2023 4:38 PM CDT 2nd message: Lab was normal, and I will add gabapentin 100 mg nightly (and titrate to 300 mg max nightly) to [facility] on [facility] list. Make sure she has a follow up appt with me in 3 months. documented in this encounter Plan of Treatment Not on file documented as of this encounter Procedures Procedure Name Priority Date/Time Associated Diagnosis Comments IRON PROFILE W/ IBC Routine 10/26/2023 1 1:16 AM CDT Iron deficiency VITAMIN D 25 HYDROXY Routine 10/26/2023 11:16 AM CDT Vitamin D deficiency FERRITIN Routine 10/26/2023 11:16 AM CDT Iron deficiency documented in this encounter Results * Vitamin D 25 hydroxy (10/26/2023 11:16 AM CDT) Vitamin D 25-OH 37 30 - 80 ng/mL Blood 10/26/2023 11:1 6 AM CDT 10/26/2023 1:45 PM CDT us Kanwal Ames DNP LAB BLOOD ORDERABLES Final Resu lt [place] [address] [place] [address] * Ferritin (10/26/2023 11:16 AM CDT) Ferritin 97 15 - 150 ng/mL Blood 10/26/2023 11:1 6 AM CDT 10/26/2023 1:45 PM CDT Kanwal Ames DNP LAB BLOOD ORDERABLES Final Resu lt [place] [address] [place] [address] * Iron profile w/ IBC (10/26/2023 11:16 AM CDT) Iron 58 35 - 145 mcg/dl TIBC 292 250 - 400 mcg/dL [facility] Transferrin saturation 20 20 - 50 % [facility] Blood 10/26/2023 11:1 6 AM CDT 10/26/2023 1:45 PM CDT Kanwal Ames DNP LAB BLOOD ORDERABLES Final Resu lt Performing Organization Address City/[facility]/ZIP Co de Phone Number [place] [address] [place] [address] documented in this encounter Visit Diagnoses Diagnosis Iron deficiency Disorders of iron metabolism Vitamin D deficiency documented in this encounter Care Teams Certified Ophthalmic Medical Technician Relationship Specialty Start Date End Date Bj Montaño MD PCP - General Family Medicine 04/15/22 02/19/24 Odilon Chester MD 1 [facility] [place] [address] Referring Physician Gastroenterology 06/06/23 Roosevelt Thomas MD 1 [facility] [place] [address] Fellow Pulmonary Disease 06/06/23 documented as of this encounter
--- OUTSIDE RECORDS SUMMARY | 2024-05-20 13:06 | XMS_ITS | Encounter Summary ---
Author Organization [facility] Address [address] [place] [address] Phone Care Team Providers Care Restaurant Assistant Name Role Phone Odilon Chester MD Unavailable [phone] Roosevelt Thomas MD Unavailable [phone] Leticia Thorne ACCOUNTS RECEIVABLE SUPERVISOR Primary Care Provider [phone] Reason for Referral * Consultation (Routine) - Authorized Specialty Diagnoses / Procedures Referred By Contac t Referred To Contact Diabetes and Nutrition Services Diagnoses NAFLD (nonalcoholic fatty liver disease) Betina Gage NP [address] [place] [address] Phone: tel: fax: [facility] Gastroenterology [address] 12th [place] [address] [place] [address] Phone: tel: fax: Referral ID Status Reason Start Date Expiration Date Visits Requested Visits Authorized [id number] Authorized Specialty Services Required 4 04/10/2025 12 12 Question Answer Please select the performing region: [facility] (All Locations) [[id number]] Which [facility] division are you referring from? Gastroenterology (GI) Please select the performing department: [facility] 12B [[id number]] [id number] Initial / Annual Follow-up MNT # of visits: 10 Comments Hepatic steatosis * MRI/CAT/PET Scan (Routine) - Closed Specialty Diagnoses / Procedures Referred By Sisi de león Referred To Contact Radiology Diagnoses NAFLD (nonalcoholic fatty liver disease) Procedures MRI Abdomen W WO Contrast With MR Elastography (C) Betina Gage NP [address] [place] [address] Phone: tel: fax: [facility] [address] [place] [address] Referral ID Status Reason Start Date Expiration Date Visits Re quested Visits Authorized [id number] Closed 03/11/2024 04/10/2025 1 1 Reason for Visit * Consultation (Routine) - Authorized Specialty Diagnoses / Procedures Referred By Sisi de león Referred To Contact Diagnoses Elevated LFTs Hepatic steatosis Cathi Herzog PA [address] [place] [address] Phone: tel: fax: Betina Gage NP [address] [place] [address] Phone: tel: fax: Referral ID Status Reason Start Date Expiration Date Visits Requested Visits Authorized [id number] Authorized Specialty Services Required 11/23/2023 12/22/2024 99 99 Encounter Details Date Type Department Care Team (Late st Contact Info) Description 03/11/2024 10:00 AM CDT Office Visit [facility] G[facility]enterology [address] [facility] [facility] [address] [place] [id number] Betina Gage NP [address] [place] [address] NAFLD (nonalcoholic fatty liver disease) (Primary Dx); Encounter for screening for other viral diseases; Elevated liver enzymes Social History Tobacco Use Types Packs/Day Years [...] on file Legal Sex Female 2:22 AM PICK UP AND DELIVERY DRIVER Gender Identity Female 05/18/2019 7:17 PM PICK UP AND DELIVERY DRIVER Sexual Orientation Straight 05/18/2019 7: 17 PM PICK UP AND DELIVERY DRIVER documented as of this encounter Last Filed Vital Signs Vital Sign Reading Time Taken Comments Blood Pressure 128/84 03/11/2024 9:59 AM CDT Pulse 72 03/11/2024 9:59 AM CDT Temperature 36.8 ??C (98.3 ??F) 03/11/2024 9:59 AM CD T Respiratory Rate - - Oxygen Saturation 99% 03/11/2024 9:59 AM CDT Inhaled Oxygen Concentration - - Weight 132.2 kg (291 lb 6.4 oz) 03/11/2024 9:59 AM CDT Height 177.8 cm (5' 10 ) 03/11/2024 9:59 AM CDT Body Mass Index 41.81 03/11/2024 9:59 AM CDT documented in this encounter Patient Instructions * Patient Instructions* Betina Gage NP - 03/11/2024 10:00 AM CDT It was nice to see you in clinic today and I appreciate you putting your trust in my care. If you had any lab tests or imaging studies today that we did not review in clinic, I will be either mailingor calling you with the results within the next two weeks. If you sign up for [employer], I can also post notes to you on that platform. If any further questions arise, please do not hesitate to contact my office with any questions. documented in this encounter Progress Notes * Betina Gage NP - 03/11/2024 10:00 AM CDT HEPATOLOGY CLINIC VISIT Josy Fiore Age: 64 y.o. Date of : 1960 Reason for Visit: Elevated LFTs, hepatic steatosis History of Present Illness: Josy Fiore is a 64 y.o. female who was referred for elevated LFTs and hepatic steatosis. She hasa PMH of obesity, DON, cholecystectomy. diverticulitis s/p sigmoid colectomy, hysterectomy, IBS. She has had transaminitis dating back to 2021. At that time, ALT and AST were in the 50's. Labs from August 2023: ALT 58, AST 65. Her most recent labs are from 11/27/23 with ALT 47, AST 46. Additional labs that have been checked and are negative/normal including LKM1, acute hepatitis panel, AMA-, МАРИНА-, ASMA-, ceruloplasmin-, A1AT normal, ferritin, and iron. US abd 2021 showed mild diffuse hepatic steatosis. Repeat US from 09/08/23 also revealed the same although limited in visualization. EGD 07/12/23:normal esophagus. She follows up with GI here as well. Patient denies any family history of liver disease. She denies any herbal supplements. She recentlystopped taking venlafaxine in January. She does not drink alcohol or sweetened beverages. She does not use recreational/illicit drugs, denies blood transfusions or tattoos. She does not follow a particular diet and does not exercise. She walks on a daily basis. She weighed about 155 lbs when she graduated high school. She was able to lose weight in the past and got down to 180 lbs, reports she lost weight by dieting. 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 Aside from join pain, she feels well overall. Denies any abnormal symptoms. Fibrosis-4 (FIB-4) Calculator: 1.69 at 03/11/2024 10:46 AM Calculated from: SGOT/AST: 46 Units/L at 11/27/2023 8:39 AM SGPT/ALT: 47 Units/L at 11/27/2023 8:39 AM Platelets: 263 K/cumm at 08/25/2023 8:17 AM Age: 64 years I reviewed patient's active problem list, medication list, allergies, family history, social history, health maintenance, lab results, endoscopy procedure notes, imaging Patient Active Problem List Diagnosis Diverticulitis Achilles tendinitis of left lower extremity NAFLD (nonalcoholic fatty liver disease) Retinal tear of left eye Posterior vitreous detachment, both eyes Combined form of age-related cataract, both eyes Gastritis without bleeding Gastric polyp Dyspnea on exertion DON (obstructive sleep apnea) Morbid obesity with body mass index (BMI) of 40.0 to 49.9 (HCC) Allergic rhinitis due to mold Seasonal allergic rhinitis due to pollen Elevated liver enzymes Past Medical History: Diagnosis Date Anxiety Arthritis [...] lesion removed from anterior chest SINUS SURGERY 1984 SKIN CANCER EXCISION Right 1994 V-Y flap R mu-ism for BCCa TERATOMA EXCISION Left 1995 L SO TONSILLECTOMY AND ADENOIDECTOMY 1963 TONSILLECTOMY AND ADENOIDECTOMY 1961 Social History Tobacco Use Smoking status: Never Smokeless tobacco: Never Substance and Sexual Activity Drug use: Never Sexual activity: Yes Partners: Male control/protection: None Alcohol Use: Not At Risk (03/11/2024) AUDIT-C Frequency of Alcohol Consumption: Never Average Number of Drinks: Not on file Frequency of Binge Drinking: Not on file Family History Problem Relation Age of Onset Colon cancer Mother Hypertension Mother Gallbladder disease Mother Cancer Mother Depression Mother Gallbladder disease Father Diverticulosis Father Heart attack Father 71 fatal day following LHC Diverticulosis Brother Diabetes Maternal Grandmother Malig Hyperthermia Neg Hx Anesthesia problems Neg Hx Sudden Cardiac Neg Hx Stroke Neg Hx Bleeding Disorder Neg Hx Clotting disorder Neg Hx Current Outpatient Medications Medication Sig Dispense Refill [...] 50-12.5 mg per tablet 1/2 tab am ondansetron (ZOFRAN) 4 mg tablet Take 1 tablet (4 mg total) by mouth every 8 (eight) hours as needed for nausea or vomiting SUMAtriptan (IMITREX) 100 mg tablet budesonide-formoteroL (SYMBICORT) 160-4.5 mcg/actuation inhaler Inhale 2 puffs 2 (two) times a day Rinse mouth with water after use. Do not swallow. (Patient taking differently: Inhale 2 puffs as needed Rinse mouth with water after use. Do not swallow.) 1 each 3 cyanocobalamin (Vitamin B-12) 1,000 mcg sublingual tablet Take 1 tablet (1,000 mcg total) by mouth daily omeprazole (PriLOSEC) 40 mg capsule Take 1 capsule (40 mg total) by mouth 2 (two) times a day before breakfast and dinner 60 capsule 2 No current facility-administered medications for this visit. Review of Systems: As outlined in HPI; all other systems negative. Objective: BP 128/84 (BP Location: Left arm, Patient Position: Sitting) Pulse 72 Temp 36.8 ??C (98.3 ??F) (Temporal) Ht 177.8 cm (5' 10 ) Wt 132.2 kg (291 lb 6.4 oz) SpO2 99% BMI 41.81 kg/m?? Physical Exam General: Well-developed female in NAD. HEENT: NC/AT. PERRL. EOMI. MMM. Neck: Supple. No tenderness, enlargement, JVD or LAD noted. Lungs: CTAB. No wheezing or crackles heard. No respiratory distress. Heart: RRR. +S1, S2. No murmurs or gallops appreciated. Abdomen: Soft. NT/ND. BS active. No organomegaly. Obese abdomen Ext/MS: No edema, cyanosis, or erythema. Good muscle strength and tone. Neuro: A&O x3. No focal deficits noted. Psych: Appears to have normal affect, mood, judgement, and insight. Skin: No obvious rashes or lesions noted. Data Review Lab Results Component Value Date WBC 7.0 08/25/2023 HGB 14.0 08/25/2023 HCT 43.8 08/25/2023 MCV 94.6 08/25/2023 LABPLAT 263 08/25/2023 Lab Results Component Value Date GLUCOSE 109 08/25/2023 CALCIUM 9.5 08/25/2023 SODIUM 138 08/25/2023 POTASSIUM 4.5 08/25/2023 CO2 26 08/25/2023 CHLORIDE 103 08/25/2023 BUNSER 18 08/25/2023 CREATININE 0.93 08/25/2023 Lab Results Component Value Date ALT 47 (H) 11/27/2023 AST 46 (H) 11/27/2023 ALKPHOS 48 11/27/2023 BILITOT 0.6 11/27/2023 No results found for: INR , PROTIME Lab Results Component Value Date HEPAIGM Nonreactive 11/27/2023 HEPBSAG Nonreactive 11/27/2023 HEPBCAB Nonreactive 11/27/2023 HEPCAB Nonreactive 11/27/2023 МАРИНА Negative 11/27/2023 SMOOTHMUSCAB Negative 11/27/2023 MITOAB Negative 11/27/2023 FERRITIN 97 10/26/2023 TRANSFERSAT 20 10/26/2023 CERULOPLSM 24.1 11/27/2023 A1A 141 11/27/2023 No results found for: NICOTINE , COTININE , ETOH , PETH , CANNABINOIDS , CANNABINOIDU Lab Results Component Value Date TTGIGA <0.5 08/25/2023 Imaging: I reviewed patient's active problem list, medication list, allergies, family history, social history, health maintenance, lab results, endoscopy procedure notes, imaging Assessment/Plan: Elevated liver enzymes Patient with history of transaminitis dating back to 2021. Imaging findings consistent with hepaticsteatosis. Serology workup was negative for other causes of chronic liver disease. I will obtain updated labs today. Due to enlarged abdominal girth, BMI 41.8, and limited visualization with ultrasound, patient to undergo MRI with elastography to evaluate degree of steatosis and fibrosis. I explained to patient that results will determine whether she should start pharmacologic therapy like a GLP-1 or rezdiffra. Referral to customer support assistant placed. We discussed the importance of weight [...] most effective treatment of fatty liver is juan manuel ght loss, ideally achieved through a combination of caloric restriction and exercise. Aerobic exercise for 4 hours a week can accelerate fat metabolism and lead to improvement of liver tests. Weight loss of 5-10% of the current body weight usually leads to improvement in liver tests, liver inflammation, and a decrease in hepatic fibrosis. She will return to clinic in 1 year. Betina Gage NP 03/11/2024 10:46 AM documented in this encounter Miscellaneous Notes * Assessment & Plan Note - Betina Gage NP - 03/11/2024 10:45 AM CDT Associated Problem(s): Elevated liver enzymes Patient with history of transaminitis dating back to 2021. Imaging findings consistent with hepaticsteatosis. Serology workup was negative for other causes of chronic liver disease. I will obtain updated labs today. Due to enlarged abdominal girth, BMI 41.8, and limited visualization with ultrasound, patient to undergo MRI with elastography to evaluate degree of steatosis and fibrosis. I explained to patient that results will determine whether she should start pharmacologic therapy like a GLP-1 or rezdiffra. Referral to customer support assistant placed. We discussed the importance of weight [...] most effective treatment of fatty liver is juan manuel ght loss, ideally achieved through a combination of caloric restriction and exercise. Aerobic exercise for 4 hours a week can accelerate fat metabolism and lead to improvement of liver tests. Weight loss of 5-10% of the current body weight usually leads to improvement in liver tests, liver inflammation, and a decrease in hepatic fibrosis. She will return to clinic in 1 year. documented in this encounter Plan of Treatment Scheduled Referrals Name Type Priority Associated Diagnoses Order Schedule Ambulatory referral to Nutrition Services Outpatient Referral Routine NAFLD (nonalcoholic fatty liver disease) Expected: 03/25/2024 (Approximate), Expires: 03/11/2025 documented as of this encounter Results * MRI Abdomen W WO Contrast With MR Elastography (C) (04/03/2024 8:41 AM PICK UP AND DELIVERY DRIVER) Anatomical Region Laterality Modality Body N/A Magnetic Resonan ce 04/03/2024 10:5 9 AM PICK UP AND DELIVERY DRIVER Impressions 04/03/2024 11:59 AM PICK UP AND DELIVERY DRIVER 1. Mild hepatic steatosis. 2. Mean liver stiffness of 3.4 kilopascals (kPa). 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 The radiology attending physician has personally reviewed this study, and had reviewed and/or edited this written report and agrees with it. Electronically signed by: Darwin Salazar M.D. Narrative 04/03/2024 11:59 AM PICK UP AND DELIVERY DRIVER EXAMINATION: 1. MAGNETIC RESONANCE IMAGING OF THE ABDOMEN WITH AND WITHOUT CONTRAST 2. MR LIVER ELASTOGRAPHY HISTORY: Hepatic steatosis TECHNIQUE: Magnetic resonance imaging of the abdomen was performed prior to and following the uneventful administration of intravenous Gadolinium contrast. MR elastography was performed using the [employer] system. Protocol: Routine liver with elastography Contrast: [...] contrast. MR elastography was performed using the [employer] system. Protocol: Routine liver with elastography Contrast: [...] NP IMG MRI PROCEDURES Final Result * CBC with auto differential (03/11/2024 11:02 AM CDT) Pathologist [facility] WBC 6.3 3.8 - 9.9 K/cumm Hgb 14.1 11.9 - 15.5 g/dL [facility] Hct 41.1 35.6 - 45.5 % [facility] Plt 259 150 - 400 K/cumm [facility] MPV 10.7 9.1 - 12.3 fL [facility] RBC 4.54 3.90 - 5.20 M/cumm [facility] MCV 90.5 81.3 - 96.4 fL [facility] MCH 31.1 27.1 - 33.3 pg [facility] MCHC 34.3 32.3 - 35.7 g/dL [facility] RDW CV 13.4 11.1 - 14.9 % [facility] RDW SD 43.8 35.7 - 48.1 fL [facility] NRBC abs 0.00 0.00 - 0.01 K/cumm [facility] Blood 03/11/2024 11:0 2 AM CDT 03/11/2024 11:20 AM CDT Betina Gage NP LAB BLOOD ORDERABLES Fin al Result [facility]IS [address] [facility]. [place] [address] * Protime-INR (03/11/2024 11:02 AM CDT) Pathologist [facility] PT 11.4 9.7 - 13.0 sec INR 1.05 0.90 - 1.20 [facility] Comment: Interpretive data Oral anticoagulant therapeutic ranges: Venous thromboembolism prophylaxis or treatment: 2.0-3.0 CARDIOLOGY Standard range: 2.0-3.0 High-intensity range: 2.5-3.5 Refer to indication-specific guidelines for appropriate target ranges for prosthetic heart valve replacement. Current interpretive data was last revised on 2019. Blood 03/11/2024 11:0 2 AM CDT 03/11/2024 11:20 AM CDT Betina Gage NP LAB BLOOD ORDERABLES Fin al Result Performing Organization Address [facility] Co de Phone Number [facility] [address] [facility] [place] [employer] [place] [address] * Hepatitis B surface antibody (immune status) Blood (03/11/2024 11:02 AM CDT) HBsAb (immune status) Reactive Comment: This result is consistent with immunity to Hepatitis B Virus when used in the setting of routine screening. Current interpretive data was last revised on 22 Testing performed by: [facility], [address] [place] [address]., [id number] HBsAb (immune status) index 15.0 mIUnits/m L [facility] Comment:Testing performed by : [facility], [address] [place] [address]., [address] Blood 03/11/2024 11:0 2 AM CDT 03/11/2024 1:16 PM CDT Betina Gage NP LAB MICROBIOLOGY - GENER AL ORDERABLES Final Result Performing Organization Address [facility] de Phone Number [facility] [address] [facility] [place] [address] * Hepatitis A antibody, total Blood (03/11/2024 11:02 AM CDT) Hep A total Nonreactive Nonreactive Comment:Testing performed by : [facility], [address] [place] [address]., [address] Blood 03/11/2024 11:0 2 AM CDT 03/11/2024 1:16 PM CDT Betina Gage NP LAB MICROBIOLOGY - GENER AL ORDERABLES Final Result Performing Organization Address City/[facility] Co de Phone Number BRITTANY FARRIS [address] [address]. [place] [address] * (ABNORMAL) Comprehensive metabolic panel (03/11/2024 11:02 [...] LAB BLOOD ORDERABLES Fin al Result [facility] [address] [facility]. [place] [address] documented in this encounter Visit Diagnoses Diagnosis NAFLD (nonalcoholic fatty liver disease)- Primary Encounter for screening for other viral diseases Elevated liver enzymes Other nonspecific abnormal serum enzyme levels NAFLD (nonalcoholic fatty liver disease) documented in this encounter Discontinued Medications Medication Sig Discontinue Reason Start Date End Da te meclizine (ANTIVERT) 25 mg tablet Take 1 tablet (25 mg total) by mouth as needed for dizziness 03/11/2024 documented as of this encounter Care Teams Restaurant Assistant Relationship Specialty Start Date End Date Leticia Thorne, ACCOUNTS RECEIVABLE SUPERVISOR [address] [place] [address] PCP - General Family Medicine 02/20/24 Odilon Chester MD 1 [facility] [place] [address] Referring Physician Gastroenterology 06/06/23 Roosevelt Thomas MD 1 [facility] [place] [address] Fellow Pulmonary Disease 06/06/23 documented as of this encounter
--- OUTSIDE RECORDS SUMMARY | 2024-05-20 13:06 | XMS_ITS | Encounter Summary ---
Author Organization [facility] Healthcare Address [address] [place] [address] Care Team Providers Care Tapper Operator Name Role Phone Bj Montaño MD Primary Care Provider Oidlon Chester MD Unavailable [phone] Roosevelt Thomas MD Unavailable [phone] Encounter Details Date Type Department Care Team (Late st Contact Info) Description 11/27/2023 8:45 AM CDT Lab [facility] Medical Group Outpatient Lab at [address] [address] Vitamin D deficiency (Primary Dx) Social History Tobacco Use Types [...] on file Legal Sex Female 2:22 AM DRUM PRINTER Gender Identity Female 05/18/2019 7:17 PM DRUM PRINTER Sexual Orientation Straight 05/18/2019 7: 17 PM DRUM PRINTER documented as of this encounter Plan of Treatment Not on file documented as of this encounter Visit Diagnoses Diagnosis Vitamin D deficiency- Primary documented in this encounter Care Teams Tapper Operator Relationship Specialty Start Date End Date Bj Montaño MD PCP - General Family Medicine 04/15/22 02/19/24 Odilon Chester MD 1 [facility] [place] [address] Referring Physician Gastroenterology 06/06/23 Roosevelt Thomas MD 1 [facility] [place] [address] Fellow Pulmonary Disease 06/06/23 documented as of this encounter
--- OUTSIDE RECORDS SUMMARY | 2024-05-20 13:06 | XMS_ITS | Encounter Summary ---
Author Organization [facility] Healthcare Address [address] [place] [address] Care Team Providers Care Company Accountant Name Role Phone Odilon Chester MD Unavailable [phone] Roosevelt Thomas MD Unavailable Leticia Thorne NP Primary Care Provider [phone] Reason for Referral * Diagnostic Imaging (Routine) - Pending Review Specialty Diagnoses / Procedures Referred By Sisi de león Referred To Contact Diagnoses Left foot pain Procedures XR Foot Left 3 [place] [address] [place] [address] Phone: tel: fax: [address] [address] Referral ID Status Reason Start Date Expiration Date V isits Requested Visits Authorized [id number] Pending Review 03/21/2024 04/20/2025 1 1 STRAP MAKER Reason for Visit * Diagnostic Imaging (Routine) - Pending Review Specialty Diagnoses / Procedures Referred By Sisi de león Referred To Contact Diagnoses Left foot pain Procedures XR Foot Left 3 [place] [address] [place] [address] Phone: tel: fax: [address] [address] Referral ID Status Reason Start Date Expiration Date V isits Requested Visits Authorized [id number] Pending Review 03/21/2024 04/20/2025 1 1 Encounter Details Date Type Department Care Team (Latest Contact Info) Description 03/25/2024 10:36 AM CHIN STRAP MAKER - 03/25/2024 11:59 PM CHIN STRAP MAKER Hospital Encounter [address] [address] Left foot pain Discharge Disposition: Discharge to [...] on file Legal Sex Female 2:22 AM CHIN STRAP MAKER Gender Identity Female 05/18/2019 7:17 PM CHIN STRAP MAKER Sexual Orientation Straight 05/18/2019 7: 17 PM CHIN STRAP MAKER documented as of this encounter Medications at [...] cramping and diarrhea) 90 tablet 11 08/24/2023 04/06/202 5 losartan-hydroCHL OROthiazide (HYZAAR) 50-12.5 mg per [...] Priority Date/Time Associated Diagnosis Comments XR FOOT LEFT 3 OR MORE VIEWS Schedule Routine, Read Routine (OP Routine) 03/25/2024 10:47 AM CHIN STRAP MAKER Left foot pain documented in this encounter Results * XR Foot Left 3 or More Views (03/25/2024 10:47 AM CHIN STRAP MAKER) Anatomical Region Laterality Modality Lower Extremities, Foot Left Digital Radiography 03/25/2024 11:5 7 AM CHIN STRAP MAKER Impressions 03/25/2024 11:57 AM CHIN STRAP MAKER There are extensive enthesopathic changes along the [...] Bina Bird M.D. Narrative 03/25/2024 11:57 AM CHIN STRAP MAKER EXAMINATION: 1. ??3 VIEWS OF THE LEFT [...] signed by: Bina Bird M.D. Miguel Bryson CYTOTECHNOLOGIST/CYTOLOGY SUPERVISOR IMG XR PROCEDURES Final Re sult documented in this encounter Visit Diagnoses Diagnosis Left foot pain Pain in soft tissues of limb documented in this encounter Care Teams Company Accountant Relationship Specialty Start Date End Date Leticia Thorne, CYTOTECHNOLOGIST/CYTOLOGY SUPERVISOR [address] [place] [address] PCP - General Family Medicine 02/20/24 Odilon Chester MD [address] [facility] [place] [address] Referring Physician Gastroenterology 06/06/23 Roosevelt Thomas MD 1 [facility] [place] [address] Fellow Pulmonary Disease 06/06/23 documented as of this encounter
--- OUTSIDE RECORDS SUMMARY | 2024-05-20 13:06 | XMS_ITS | Encounter Summary ---
Author Organization [facility] Address [address] [place] [address] Phone Care Team Providers Care Welder Name Role Phone Bj Montaño MD Primary Care Provider [phone] Odilon Chester MD Unavailable [phone] Roosevelt Thomas MD Unavailable [phone] Encounter Details Date Type Department Care Team (Latest Contact Info) Description 01/26/2024 Orders Only [facility] SLEEP Scanning, Provider Social History Tobacco Use Types Packs/Day Years [...] on file Legal Sex Female 2:22 AM LPN CMA Gender Identity Female 05/18/2019 7:17 PM LPN CMA Sexual Orientation Straight 05/18/2019 7: 17 PM LPN CMA documented as of this encounter Plan of Treatment Not on file documented as of this encounter Procedures Procedure Name Priority Date/Time Associated Diagnosis Comments SLEEP LAB/STUDY - RESULT 01/26/2024 4:59 PM CDT documented in this encounter Results * SLEEP LAB/STUDY - RESULT (01/26/2024 4:59 PM CDT) us Provider Scanning Final Result documented in this encounter Visit Diagnoses Not on filedocumented in this encounter Care Teams Welder Relationship Specialty Start Date End Date Bj Montaño MD PCP - General Family Medicine 04/15/22 02/19/24 Odilon Chester MD 1 [facility] [place] [address] Referring Physician Gastroenterology 06/06/23 Roosevelt Thomas MD 1 [facility] [place] [address] Fellow Pulmonary Disease 06/06/23 documented as of this encounter
--- OUTSIDE RECORDS SUMMARY | 2024-05-20 13:06 | XMS_ITS | Encounter Summary ---
Author Organization [facility] of [facility] Address [address] [place] [address] Phone Care Team Providers Care Program Or Project Administrator Name Role Phone Bj Montaño MD Primary Care Provider [phone] Odilon Chester MD Unavailable [phone] Roosevelt Thomas MD Unavailable [phone] Encounter Details Date Type Department Care Team (Latest Contact Info) Description 12/13/2023 Orders Only [facility] SLEEP Scanning, Provider [...] on file Legal Sex Female 2:22 AM MEDICAL RECORD ADMINISTRATOR Gender Identity Female 05/18/2019 7:17 PM MEDICAL RECORD ADMINISTRATOR Sexual Orientation Straight 05/18/2019 7: 17 PM MEDICAL RECORD ADMINISTRATOR documented as of this encounter Plan of Treatment Not on file documented as of this encounter Procedures Procedure Name Priority Date/Time Associated Diagnosis Comments SLEEP LAB/STUDY - RESULT 12/13/2023 4:59 PM CDT documented in this encounter Results * SLEEP LAB/STUDY - RESULT (12/13/2023 4:59 PM CDT) us Provider Scanning Final Result documented in this encounter Visit Diagnoses Not on filedocumented in this encounter Care Teams Program Or Project Administrator Relationship Specialty Start Date End Date Bj Montaño MD PCP - General Family Medicine 04/15/22 02/19/24 Odilon Chester MD 1 [facility] [place] [address] Referring Physician Gastroenterology 06/06/23 Roosevelt Thomas MD 1 [facility] [place] [address] Fellow Pulmonary Disease 06/06/23 documented as of this encounter
--- OUTSIDE RECORDS SUMMARY | 2024-05-20 13:06 | XMS_ITS | Encounter Summary ---
Author Organization [facility] Address [address] [place] [address] Phone Care Team Providers Care Day [employer] Bus Driver Name Role Phone Bj Montaño MD Primary Care Provider [phone] Odilon Chester MD Unavailable [phone] Roosevelt Thomas MD Unavailable [phone] Reason for Visit * Consultation (Routine) - Authorized Specialty Diagnoses / Procedures Referred By Contac t Referred To Contact Gastroenterology Diagnoses Diverticulitis Gastritis without bleeding, unspecified chronicity, unspecified gastritis type Bj Montaño MD [facility] [facility] [address] [address] Phone: tel: fax: [facility] (All Locations) Referral ID Status Reason Start Date Expiration Date Visits Requested Visits Authorized [id number] Authorized Specialty Services Required 11/13/2023 08/26/2024 10 12 Encounter Details Date Type Department Care Team (Late st Contact Info) Description 08/24/2023 9:50 AM CDT Office Visit [facility] Gastroenterology [address] [place] [address] Cathi Herzog PA [address] [place] [address] Diarrhea, unspecified type (Primary Dx); Abdominal pain; Heartburn; Dyspepsia; Gastric polyp; History of colon polyps; Diverticulitis; Gastritis without bleeding, unspecified chronicity, unspecified gastritis type Social History Tobacco Use Types Packs/Day Years [...] on file Legal Sex Female 2:22 AM SLIP MIXER Gender Identity Female 05/18/2019 7:17 PM SLIP MIXER Sexual Orientation Straight 05/18/2019 7: 17 PM SLIP MIXER documented as of this encounter Last Filed Vital Signs Vital Sign Reading Time Taken Comments Blood Pressure 149/87 08/24/2023 10:19 AM CDT Pulse 86 08/24/2023 10:19 AM CDT Temperature 36.3 ??C (97.3 ??F) 08/24/2023 10:19 AM C DT Respiratory Rate - - Oxygen Saturation 95% 08/24/2023 10:19 AM CDT Inhaled Oxygen Concentration - - Weight 132 kg (291 lb) 08/24/2023 10:19 AM CDT Height 177.8 cm (5' 10 ) 08/24/2023 10:19 AM CDT Body Mass Index 41.75 08/24/2023 10:19 AM CDT documented in this encounter Patient Instructions * Patient Instructions* Cathi Herzog PA - 08/24/2023 9:50 AM CDT Office [phone] Start omeprazole 40 mg twice daily 30 minutes before breakfast daily and at bedtime Start dicyclomine 20 mg -- this can be taken up to three times per day or as needed I would recommend taking it in the morning when you wake up to start and then taking it again in the afternoon You can also take this before meals/before going out Adjust medication depending on your symptoms Caution constipation Call or message with update in 2-3 weeks or sooner if needed documented in this encounter Ordered Prescriptions Prescription Sig Dispense Quantity Refills Last Filled Start Date End Date dicyclomine (BENTYL) 20 mg tabletIndications: Irritable Bowel Syndrome Take 1 tablet (20 mg total) by mouth 3 (three) times a day as needed (abdominal cramping and diarrhea) 90 tablet 11 08/24/2023 5 ondansetron (ZOFRAN) 4 mg tablet Take 1 tablet (4 mg total) by mouth 3 (three) times a day 20 tablet 08/24/2023 4 omeprazole (PriLOSEC) 40 mg capsule Take 1 capsule (40 mg total) by mouth 2 (two) times a day 60 capsule 3 08/24/2023 4 documented in this encounter Progress Notes * Cathi Herzog PA - 08/24/2023 9:50 AM CDT Reason for visit: Abdominal pain, bowel frequency and urgency Referring physician: Bj Montaño MD HPI: 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 Hodge, history of colon polyps, hyperplastic gastric polyp, obesity, cholecystectomy, hysterectomy who is being seen for complaints of bloating, flatulence, urgency with BM & infrequent nausea. She endorses being diagnosed with a duodenal ulcer in 1995, history of H. Pylori s/p treatment x 2. She had cholecystectomy in 2011 for cholelithiasis. Last November 2022 she noticed post prandial diarrhea. She tried using fiber supplementation and Align without improvement in symptoms. After eating she will develop bowel urgency and diarrhea. Stools start out semi- solid then progressto liquid. She has had increased frequency and urgency. Denies blood in the stool or nocturnal symptoms. She has associated pain/cramping. Recalls taking dicyclomine many years ago with benefit. She also complains of nausea and increased reflux symptoms since November 2022. She has been taking omeprazole with minimal improvement. She then tried Protonix and Carafate slurry with some improvement. Most recently her insurance changed and no longer approves pantoprazole. She has been taking omeprazole 20 mg BID with minimal benefit. She elevates head of bed, avoids eating late. She will wake up with acid in her throat at night. She denies dysphagia. She has nausea, down 7-8 lb due to this. No Vomiting. She has soreness in the RUQ and LUQ. Colonoscopy with Dr. Chester 12/2022 showed multiple colon polyps and diverticulosis. She has had EGD x [address] Chester. See findings below, no explanation for symptoms. Patient Active Problem List Diagnosis Diverticulitis Achilles tendinitis of left lower extremity NAFLD (nonalcoholic fatty liver disease) Retinal tear of left eye Posterior vitreous detachment, both eyes Combined form of age-related cataract, both eyes Gastritis without bleeding Gastric polyp Dyspnea on exertion DON (obstructive sleep apnea) Outpatient Medications Marked as Taking for the 08/24/23 encounter (Office Visit) with Cathi Herzog PA [...] use. Do not swallow. 1 each 3 [id number] ORAL cetirizine (ZyrTEC) 10 mg tablet Take 1 tablet (10 mg total) by mouth as needed for allergies cholecalciferol (Vitamin D3) 2000 unit capsule 1 capsule (2,000 Units total) losartan-hydroCHLOROthiazide (HYZAAR) 50-12.5 mg per tablet psyllium husk (METAMUCIL ORAL) Take 6 Caplet by mouth every morning 6 caps am soy isofla/blk cohosh/mag bark (ESTROVEN ORAL) Take by mouth Unsure med dosage every day hs SUMAtriptan (IMITREX) 100 mg tablet venlafaxine 225 mg tablet extended release 24hr 24 hr tablet [DISCONTINUED] omeprazole (PriLOSEC) 20 mg capsule Take 1 capsule (20 mg total) by mouth 2 (two) times a day 180 capsule 3 I have reviewed past medical history, past surgical history, allergies, current medications, familyhistory, and social history as recorded in [facility]. The new patient intake form was reviewed with the patient today during the visit. Review of Systems: Review of Systems Constitutional: Negative for chills, fatigue and fever. HENT: Negative for nosebleeds, sore throat, tinnitus and trouble swallowing. Respiratory: Positive for shortness of breath. Cardiovascular: Negative for chest pain. Gastrointestinal: Positive for abdominal pain and diarrhea. Negative for blood in stool, constipation and vomiting. Skin: Negative for rash. Neurological: Negative for dizziness, seizures, weakness, numbness and headaches. Psychiatric/Behavioral: Positive for sleep disturbance. Negative for confusion. All other systems reviewed and are negative. Physical Exam: BP 149/87 Pulse 86 Temp 36.3 ??C (97.3 ??F) Ht 177.8 cm (5' 10 ) Wt 132 kg (291 lb) SpO2 95% BMI 41.75 kg/m?? Constitutional: Not in acute distress. HEENT: Sclera is not icterus. Conjunctiva is pink. Orapharynx is clear and moist. Neck: Supple. No thyromegaly. No lymphadenopathy. Pulmonary: Normal breathing sounds. Cardiovascular: Regular rate and rhythm. Normal S1 and S2. No murmur. Abdomen: Normal bowel sounds. Soft. Upper abdominal tenderness. No distention. Skin: No rash Laboratory data: Records and pertinent lab results were reviewed. Lab Results Component Value Date WBC 7.0 08/25/2023 HGB 14.0 08/25/2023 HCT 43.8 08/25/2023 MCV 94.6 08/25/2023 LABPLAT 263 08/25/2023 Chemistry Component Value Date/Time SODIUM 138 08/25/2023 0817 POTASSIUM 4.5 08/25/2023 0817 CHLORIDE 103 08/25/2023 0817 CO2 26 08/25/2023 0817 BUNSER 18 08/25/2023 0817 CREATININE 0.93 08/25/2023 0817 GLUCOSE 109 08/25/2023 0817 Component Value Date/Time CALCIUM 9.5 08/25/202317 ALKPHOS 45 08/25/2023816 AST 65 (H) 08/25/202317 ALT 58 (H) 08/25/2023816 BILITOT 0.5 08/25/2023816 Lab Results Component Value Date CRP <3.0 12/08/2021 EGD 07/12/2023 Dr. Chester (gastric hyperplastic polyp) [...] Diagnoses and all orders for this visit: Diarrhea, unspecified type (Primary) Abdominal pain Symptoms most likely due to IBS-D. Post cholecystectomy diarrhea also a consideration. She has had colonoscopy without findings to explain symptoms. Cramping relieved after BM. No alarm features. I recommended checking labs today including Celiac serologies. Discussed trial of dicyclomine 20 mg-- taken up to three times per day or as needed. I recommended taking it in the morning upon awakening and then taking it again in the afternoon. Can also take this before meals/before going out. Adjust medication depending on symptoms. Caution constipation. - Tissue transglutaminase IgA (TGG-IgA Ab); Future - IgA; Future - TSH; Future - Comprehensive metabolic panel; Future - CBC with auto differential; Future Heartburn Dyspepsia Persistent symptoms despite omeprazole 20 mg BID. Pantoprazole in the past was more helpful, but insurance changed and no longer covered. Had recent EGD without findings to explain symptoms. Reviewed anti-reflux diet and lifestyle modifications. I recommended trial of omeprazole 40 mg BID 30 minutes before breakfast daily and at bedtime and Zofran prn. Monitor symptoms. Gastric polyp A 6 mm gastric papule nodule, biopsied with path showing gastric inflammatory polyp on EGD 12/2022.A 6 month follow up 06/2023 noted an 8 mm sessile polyp in cardia, removed. Path consistent with gastric hyperplastic polyp. A repeat EGD in 1 year recommended. History of colon polyps Last colonoscopy 12/2022 with multiple TAs removed. A 3 year follow up recommended. Due 12/2025. Diverticulitis She is s/p laparoscopic sigmoid colectomy 04/[address] Hodge. She is doing well. No recurrences of diverticulitis. - Ambulatory referral to Gastroenterology Other orders - omeprazole (PriLOSEC) 40 mg capsule; Take 1 capsule (40 mg total) by mouth 2 (two) times a day - dicyclomine (BENTYL) 20 mg tablet; Take 1 tablet (20 mg total) by mouth 3 (three) times a day as needed (abdominal cramping and diarrhea) - ondansetron (ZOFRAN) 4 mg tablet; Take 1 tablet (4 mg total) by mouth 3 (three) times a day Follow up: Return in about 3 months (around 11/23/2023). documented in this encounter Plan of Treatment Not on file documented as of this encounter Results * (ABNORMAL) CBC with auto differential (08/25/2023 8:17 AM CDT) Pathologist [facility] WBC 7.0 3.8 - 9.9 K/cumm Hgb 14.0 11.9 - 15.5 g/dL [facility] Hct 43.8 35.6 - 45.5 % [facility] Plt 263 150 - 400 K/cumm [facility] MPV 11.7 9.1 - 12.3 fL [facility] RBC 4.63 3.90 - 5.20 M/cumm [facility] MCV 94.6 81.3 - 96.4 fL [facility] MCH 30.2 27.1 - 33.3 pg [facility] MCHC 32.0(L) 32.3 - 35.7 g/dL [facility] CH RDW CV 13.3 11.1 - 14.9 % [facility] RDW SD 46.2 35.7 - 48.1 fL [facility] NRBC abs 0.00 0.00 - 0.01 K/cumm [facility] Blood 08/25/2023 8:17 AM CDT 08/25/2023 3:49 PM CDT us Cathi GERONIMO LAB BLOOD ORDERABLES nal Result BRITTANY RIVERA [address] Department [place] [address] * (ABNORMAL) Comprehensive metabolic panel (08/25/2023 8:17 AM CDT) Sodium 138 135 - 145 mmol/L Potassium, pl 4.5 3.3 - 4.9 mmol/L [facility] Chloride 103 97 - 110 mmol/L [facility] CO2 26 22 - 32 mmol/L [facility] Anion gap 9 2 - 15 mmol/L [facility] BUN 18 6 - 25 mg/dL [facility] Creatinine 0.93 0.60 - 1.10 mg/dL [facility] Glucose 109 70 - 199 mg/dL [facility] Comment: Interpretive Data Fasting glucose >/= 126 [...] LAB BLOOD ORDERABLES Fi nal Result BRITTANY [address] Department [place] [address] * TSH (08/25/2023 8:17 AM CDT) Thyroid Stimulating Hormone 2.28 0.30 - 4.20 mcIUnit/mL Blood 08/25/2023 8:17 AM CDT 08/25/2023 3:49 PM CDT Cathi GERONIMO LAB BLOOD ORDERABLES Fi nal Result Performing Organization Address City/[facility] Co de Phone Number BRITTANY RIVERA [address] [facility] [place] [address] * IgA (08/25/2023 8:17 AM CDT) Immunoglobulin A 239 70 - 400 mg/dL Blood 08/25/2023 8:17 AM CDT 08/25/2023 3:49 PM CDT Cathi GERONIMO LAB BLOOD ORDERABLES Fi nal Result Performing Organization Address [facility] de Phone Number BRITTANY RIVERA [address] [place] [address] * Tissue transglutaminase IgA (TGG-IgA Ab) (08/25/2023 8:17 AM CDT) TTG ab, IgA <0.5 <=14.9 units/mL Comment: Interpretive data Negative: <15 units/mL Positive: > or equal to 15 units/mL Current interpretive data was last revised on 2016. Testing performed by: [facility], [address] [place]., [address] Blood 08/25/2023 8:17 AM CDT 08/26/2023 9:37 PM CDT Cathi GERONIMO LAB BLOOD ORDERABLES Fi nal Result Performing Organization Address [facility] Co de Phone Number BRITTANY RIVERA [address] [facility] [place] [address] documented in this encounter Visit Diagnoses Diagnosis Diarrhea, unspecified type- Primary Abdominal pain Abdominal pain, unspecified site Heartburn Dyspepsia Dyspepsia and other specified disorders of function of stomach Gastric polyp Benign neoplasm of stomach History of colon polyps Diverticulitis Diverticulitis of colon (without mention of hemorrhage) Gastritis without bleeding, unspecified chronicity, unspecified gastritis type documented in this encounter Discontinued Medications Medication Sig Discontinue Reason Start Date End Da te omeprazole (PriLOSEC) 20 mg capsule Take 1 capsule (20 mg total) by mouth 2 (two) times a day 07/12/2023 08/24/2023 documented as of this encounter Historical Medications * This list may reflect changes made after this encounter. Medication Sig Dispense Quantity Refills Last Filled Start D ate End Date [id number] C ORAL 10/24/2023 added in this encounter Orders Outpatient Referral Count Last Ordered Date Fir st Ordered Date AMB REFERRAL TO GASTROENTEROLOGY 1 08/24/19 documented in this encounter Care Teams Day [employer] Relationship Specialty Start Date End Date Bj Montaño MD PCP - General Family Medicine 04/15/22 02/19/24 Odilon Chester MD 1 [facility] [place] [address] Referring Physician Gastroenterology 06/06/23 Roosveelt Thomas MD 1 [facility] [place] [address] Fellow Pulmonary Disease 06/06/23 documented as of this encounter
--- OUTSIDE RECORDS SUMMARY | 2024-05-20 13:06 | XMS_ITS | Encounter Summary ---
Author Organization [facility] Healthcare Address [address] [place] [address] Care Team Providers Care Back Up Worker Name Role Phone Odilon Chester MD Unavailable Roosevelt Thomas MD Unavailable [phone] Leticia Thorne FIRE PROTECTION SPECIALIST Primary Care Provider [phone] Encounter Details Date Type Department Care Team (Late st Contact Info) Description 03/11/2024 11:00 AM CDT Lab [facility] [address] [place], [place] [id number] NAFLD (nonalcoholic fatty liver disease); Encounter for screening for other viral diseases Social History Tobacco Use Types Packs/Day Years [...] on file Legal Sex Female 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 Recommend hep A vaccine. Michelle - pt to proceed with MRI with elastography. Sent my chart message. documented in this encounter Plan of Treatment Not on file documented as of this encounter Procedures Procedure Name Priority Date/Time Associated Diagnosis Comments EGFR Routine 03/11/2024 11:02 AM CDT NAFLD [...] Encounter for screening for other viral diseases PROTIME-INR Routine 03/11/2024 11:02 AM CDT NAFLD (nonalcoholic fatty liver disease) COMPREHENSIVE METABOLIC PANEL Routine 03/11/2024 11:02 AM CDT NAFLD (nonalcoholic fatty liver disease) documented in this encounter Results * eGFR (03/11/2024 11:02 AM CDT) eGFR [...] 2 AM CDT 03/11/2024 11:20 AM CDT us Betina Gage NP LAB BLOOD ORDERABLES Fin al Result BRITTANY BOYLE [address] [facility]. Department [place] [address] * Differential, auto (03/11/2024 11:02 AM CDT) Neutrophil abs 2.9 1.5 - 6.5 K/cumm Imm gran abs 0.0 0.0 - 0.1 K/cumm [facility] Lymphocyte abs 2.8 0.8 - 3.3 K/cumm [facility] Monocyte abs 0.5 0.2 - 0.8 K/cumm [facility] Eosinophil abs 0.1 0.0 - 0.5 K/cumm [facility] Basophil abs 0.1 0.0 - 0.1 K/cumm [facility] Neutrophil pct 45.4 % [facility] Comment: Interpretive Data Percent cell count [...] CDT 03/11/2024 11:20 AM CDT Betina Gage FIRE PROTECTION SPECIALIST LAB BLOOD ORDERABLES Fin al Result [facility] [address] [facility]. Department [place] [address] * (ABNORMAL) Comprehensive metabolic panel (03/11/2024 11:02 AM CDT) Sodium 139 135 - 145 mmol/L Potassium, pl 4.0 3.3 - 4.9 mmol/L [facility] Chloride 102 97 - 110 mmol/L [facility] CO2 27 22 - 32 mmol/L CERNER [...] LAB BLOOD ORDERABLES Fin al Result [facility] [address] [facility]. [place] [address] * Hepatitis A antibody, total Blood (03/11/2024 11:02 AM CDT) Pathologist [facility] Hep A total Nonreactive Nonreactive Comment:Testing performed by : [facility], [address] [place]., [address] Blood 03/11/2024 11:0 2 AM CDT 03/11/2024 1:16 PM CDT Betina Gage NP LAB MICROBIOLOGY - GENER AL ORDERABLES Final Result Performing Organization Address [facility] de Phone Number [facility] [address] [facility] [place] [address] * Hepatitis B surface antibody (immune status) Blood (03/11/2024 11:02 AM CDT) HBsAb (immune status) Reactive Comment: This result is consistent with immunity to Hepatitis B Virus when used in the setting of routine screening. Current interpretive data was last revised on 22 Testing performed by: [facility], [address] [place] [address]., [address] HBsAb (immune status) index 15.0 mIUnits/m L BRITTANY FARRIS Comment:Testing performed by : [facility], [address] [place]., [address] Blood 03/11/2024 11:0 2 AM CDT 03/11/2024 1:16 PM CDT Betina Gage NP LAB MICROBIOLOGY - GENER AL ORDERABLES Final Result Performing Organization Address [facility] de Phone Number [facility] [address] [facility] [place] [address] * Protime-INR (03/11/2024 11:02 AM CDT) PT [...] ORDERABLES Fin al Result Performing Organization Address City/[facility]/ZIP Co de Phone Number BRITTANY FARRIS [address] [address] [facility] [place] [address] * CBC with auto differential (03/11/2024 11:02 AM CDT) WBC 6.3 3.8 - 9.9 K/cumm Hgb 14.1 11.9 - 15.5 g/dL [facility] Hct 41.1 35.6 - 45.5 % [facility] Plt 259 150 - 400 K/cumm [facility] MPV 10.7 9.1 - 12.3 fL [facility] RBC 4.54 3.90 - 5.20 M/cumm [facility] MCV 90.5 81.3 - 96.4 fL [facility] MCH 31.1 27.1 - 33.3 pg [facility] MCHC 34.3 32.3 - 35.7 g/dL [facility] RDW CV 13.4 11.1 - 14.9 % [facility] RDW SD 43.8 35.7 - 48.1 fL [facility] NRBC abs 0.00 0.00 - 0.01 K/cumm [facility] Blood 03/11/2024 11:0 2 AM CDT 03/11/2024 11:20 AM CDT Betina Gage FIRE PROTECTION SPECIALIST LAB BLOOD ORDERABLES Fin al Result Performing Organization Address City/[facility]/ZIP Co de Phone Number BRITTANY [facility]CH [address] [address] [facility] [employer] [place], [place] [phone] documented in this encounter Visit Diagnoses Diagnosis NAFLD (nonalcoholic fatty liver disease) Encounter for screening for other viral diseases documented in this encounter Care Teams Back Up Worker Relationship Specialty Start Date End Date Leticia Thorne, FIRE PROTECTION SPECIALIST [address] [place] [address] PCP - General Family Medicine 02/20/24 Odilon Chester MD [address] [facility] [address] [place] [address] Referring Physician Gastroenterology 06/06/23 Roosevelt Thomas MD 1 [facility] [place] [address] Fellow Pulmonary Disease 06/06/23 documented as of this encounter
--- OUTSIDE RECORDS SUMMARY | 2024-05-20 13:06 | XMS_ITS | Encounter Summary ---
Author Organization [facility] Healthcare Address [address] [place] [address] Care Team Providers Care Alumni Coordinator Name Role Phone Odilon Chester MD Unavailable Roosevelt Thomas MD Unavailable [phone] Leticia Thorne NP Primary Care Provider [phone] Reason for Referral * MRI/CAT/PET Scan (Routine) - Closed Specialty Diagnoses / Procedures [facility] Referred To Contact Radiology Diagnoses NAFLD (nonalcoholic fatty liver disease) Procedures MRI Abdomen W WO Contrast With MR Elastography (C) Betina Gage NP [address] [address] Phone: tel: fax: [address] [phone] Referral ID Status Reason Start Date Expiration Date Visits Re quested Visits Authorized [id number] Closed 03/11/2024 04/10/2025 1 1 LOT CLEANER Reason for Visit * MRI/CAT/PET Scan (Routine) - Closed Specialty Diagnoses / Procedures [facility] Referred To Contact Radiology Diagnoses NAFLD (nonalcoholic fatty liver disease) Procedures MRI Abdomen W WO Contrast With MR Elastography (C) Betina Gage NP [address] [place] [id number] Phone: tel: fax: [address] [phone] Referral ID Status Reason Start Date Expiration Date Visits Re quested Visits Authorized [id number] Closed 03/11/2024 04/10/2025 1 1 Encounter Details Date Type Department Care Team (Latest Contact Info) Description 04/03/2024 7:15 AM SHALLOT CLEANER - 04/03/2024 11:59 PM SHALLOT CLEANER Hospital Encounter [facility] [address] [place] [id number] NAFLD (nonalcoholic fatty liver disease) Discharge Disposition: [...] on file Legal Sex Female 2:22 AM SHALLOT CLEANER Gender Identity Female 05/18/2019 7:17 PM SHALLOT CLEANER Sexual Orientation Straight 05/18/2019 7: 17 PM SHALLOT CLEANER documented as of this encounter Medications at [...] Encounter Note - Betina Gage NP - 04/03/2024 11:59 PM SHALLOT CLEANER MRI shows 1. Mild hepatic steatosis.2. Mean liver stiffness of 3.4 kilopascals (kPa). This is consistent with stage 1-2 fibrosis (2.9-3.5 kPa) Sent my chart message with result. Recommend weight loss, okay to try GLP-1 if insurance will approve. Waiting to hear back from patient as to what she prefers. If GLP 1 not approved, will start vit E supplementation. LOT CLEANER documented in this encounter Plan of Treatment Not on file documented as of this encounter Procedures Procedure Name Priority Date/Time Associated Diagnosis Comments MRI ABDOMEN W WO CONTRAST WITH MR ELASTOGRAPHY (C) Schedule Routine, Read Routine (OP Routine) 04/03/2024 8:41 AM SHALLOT CLEANER NAFLD (nonalcoholic fatty liver disease) documented in this encounter Results * MRI Abdomen W WO Contrast With MR Elastography (C) (04/03/2024 8:41 AM SHALLOT CLEANER) Anatomical Region Laterality Modality Body N/A Magnetic Resonan ce 04/03/2024 10:5 9 AM SHALLOT CLEANER Impressions 04/03/2024 11:59 AM SHALLOT CLEANER 1. Mild hepatic steatosis. 2. Mean liver stiffness of 3.4 kilopascals (kPa). 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 The radiology attending physician has personally reviewed this study, and had reviewed and/or edited this written report and agrees with it. Electronically signed by: Darwin Salazar M.D. Narrative 04/03/2024 11:59 AM SHALLOT CLEANER EXAMINATION: 1. MAGNETIC RESONANCE IMAGING OF THE ABDOMEN WITH AND WITHOUT CONTRAST 2. MR LIVER ELASTOGRAPHY HISTORY: Hepatic steatosis TECHNIQUE: Magnetic resonance imaging of the abdomen was performed prior to and following the uneventful administration of intravenous Gadolinium contrast. MR elastography was performed using the [email or web address] system. Protocol: Routine liver with elastography Contrast: [...] contrast. MR elastography was performed using the [employer] system. Protocol: Routine liver with elastography Contrast: [...] Gage NP IMG MRI PROCEDURES Final Result documented in this encounter Visit Diagnoses Diagnosis NAFLD (nonalcoholic fatty liver disease) documented in this encounter Administered Medications Inactive Administered Medications - up to 3 most recent administrations Medication Order MAR Action Action Date Dose Rate Site gadoterate meglumine injection 20 mL 20 mL, intravenous, Once in imaging, contrast, Starting on Mon04/03/24 at 0831, For 1 dose Contrast Given 04/03/2024 8:31 AM SHALLOT CLEANER 20 mL documented in this encounter Orders Medications Ordered That Ole ht Not Have Been Administered Count Last Ordered Date First Ordered Date gadoterate meglumine injection 20 mL 1 03/16 documented in this encounter Care Teams Alumni Coordinator Relationship Specialty Start Date End Date Leticia Thorne, METALLURGY TEACHER [address] [place] [address] PCP - General Family Medicine 02/20/24 Odilon Chester MD 1 [facility] [place] [address] Referring Physician Gastroenterology 06/06/23 Roosevelt Thomas MD 1 [facility] [place] [address] Fellow Pulmonary Disease 06/06/23 documented as of this encounter
--- OUTSIDE RECORDS SUMMARY | 2024-05-20 13:06 | XMS_ITS | Encounter Summary ---
Author Organization [facility] Healthcare Address [address] [place] [address] Care Team Providers Care Dairy Supplies Sales Representative Name Role Phone Bj Montaño MD Primary Care Provider [phone] Odilon Chester MD Unavailable [phone] Roosevelt Thomas MD Unavailable [phone] Encounter Details Date Type Department Care Team (Latest Contact Info) Description 11/27/2023 8:39 AM CDT - 11/27/2023 11:59 PM CDT Hospital Encounter [facility] [id number] [place] [phone] Elevated LFTs; Hepatic steatosis Discharge Disposition: Discharge to home or self [...] on file Legal Sex Female 2:22 AM HOLISTIC NUTRITIONIST Gender Identity Female 05/18/2019 7:17 PM HOLISTIC NUTRITIONIST Sexual Orientation Straight 05/18/2019 7: 17 PM HOLISTIC NUTRITIONIST documented as of this encounter Medications at [...] day 60 capsule 3 08/24/2023 4 venlafaxine XR (EFFEXOR-XR) 75 mg 24 hr capsule Take 1 capsule (75 mg total) by mouth daily 11/25/2023 4 documented as of this encounter Discharge Disposition Disposition Code Departure Means Destination Discharge to home or self care documented in this encounter Plan of Treatment Scheduled Orders Name Type Priority Associated Diagnoses Orde r Schedule Liver/kidney microsome type 1 antibody Lab Routine Elevated LFTs Hepatic steatosis Once for 1 Occurrences starting 11/27/2023 until 11/27/2023 documented as of this encounter Procedures Procedure Name Priority Date/Time Associated Diagnosis Comments МАРИНА QUALITATIVE WITH REFLEX TO МАРИНА QUANTITATIVE Routine 11/27/2023 8:39 AM CDT Elevated LFTs Hepatic steatosis BLOOD MISC TO [place] Routine 11/27/2023 8: 39 AM CDT SMOOTH MUSCLE ANTIBODY, QUALITATIVE Routine 11/27/2023 8:39 AM CDT Elevated LFTs Hepatic steatosis MITOCHONDRIAL ANTIBODIES, QUALITATIVE Routine 11/27/2023 8:39 AM CDT Elevated LFTs Hepatic steatosis [id number] Routine 11/27/2023 8 :39 AM CDT Elevated LFTs Hepatic steatosis CERULOPLASMIN Routine 11/27/2023 8:39 AM CDT Elevated LFTs Hepatic steatosis HEPATITIS PANEL, ACUTE Routine 8:39 AM CDT Elevated LFTs Hepatic steatosis HEPATIC FUNCTION PANEL Routine 8:39 AM CDT Elevated LFTs Hepatic steatosis documented in this encounter Results * BLOOD MISC TO [place] (11/27/2023 8:39 AM CDT) Pathologist [facility] Test name, chem [facility] [place] ref Lab Misc See Footnote BRITTANY RIVERA Comment: Test ?Result ??Flag ??Unit ??RefValue Liver/Kidney Microsome Type 1 ? <5.0 ?U ??Ab, S ?-- REFERENCE VALUE -- ?<=20.0 (Negative) ?Test Performed by: ?[facility] ?[address] [place] [address] ?Waist Cutter: Shaun Yi Ph.D.; CLIA# [id number] Blood 11/27/2023 8:39 AM CDT 11/28/2023 9:31 AM CDT Narrative [facility] - 11/30/2023 3:25 PM CDT LIVER/KIDNEY MICROSOME TYPE 1 Cathi GERONIMO LAB BLOOD ORDERABLES Fi nal Result BRITTANY [address] Department [place] [address] [place] ref Lab * Hepatitis panel, acute Blood (11/27/2023 8:39 AM CDT) Hep A IgM Nonreactive Nonreactive Comment: Interpretive Data: If Hep A IgM Ab is reported as Equivocal, a new sample should be drawn in two weeks for testing. Current interpretive data was last revised on 19. Hep B core IgM Nonreactive Nonreactive [facility] Comment: Interpretive Data If HepB Core IgM Ab is reported as Equivocal, a new sample should be drawn in two weeks for testing. Current interpretive data was last revised on 19. Hep C Ab Nonreactive Nonreactive [facility] Comment: Interpretive Data Nonreactive: Antibodies to [...] last revised on 2019. HepBsAg Nonreactive Nonreactive [facility] Blood 11/27/2023 8:39 AM CDT 11/27/2023 2:38 PM CDT Cathi GERONIMO LAB MICROBIOLOGY - GENE RAL ORDERABLES Final Result Performing Organization Address [facility] Co de Phone Number BRITTANY [address] [address] [place] [address] * Mitochondrial antibodies, qualitative (11/27/2023 8:39 AM CDT) Pathologist [facility] Anti-mitochond rial Negative Negative Comment:Testing performed by : [facility], [address] [place] [address]., [address] Blood 11/27/2023 8:39 AM CDT 11/27/2023 5:16 PM CDT Cathi GERONIMO LAB BLOOD ORDERABLES Fi nal Result Performing Organization Address [facility] Co de Phone Number [facility] [address] [place] [address] * Ceruloplasmin (11/27/2023 8:39 AM CDT) [facility] Ceruloplasmin 24.1 16.0 - 45.0 mg/dL Comment:Testing performed by : [facility], [address] [place] [address]., [address] Blood 11/27/2023 8:39 AM CDT 11/27/2023 5:16 PM CDT Cathi GERONIMO LAB BLOOD ORDERABLES Fi nal Result Performing Organization Address [facility] Co de Phone Number BRITTANY [address] Department of [employer] [place], [place] [phone] * МАРИНА ab ql w/rflx to МАРИНА qn (11/27/2023 8:39 AM CDT) Pathologist [facility] МАРИНА Negative Comment: Interpretive Data Normal range [...] last revised on 2020. Testing performed by: [facility], [address] [place] [address]., [address] Blood 11/27/2023 8:39 AM CDT 11/27/2023 5:16 PM CDT Cathi GERONIMO LAB BLOOD ORDERABLES Fi nal Result Performing Organization Address City/[facility] Co de Phone Number [facility] [address] [facility] [place] [address] * [id number] (11/27/2023 8:39 AM CDT) alpha-1 antitrypsin 141 90 - 200 mg/dL Comment:Testing performed by : [facility], [address] [place] [address]., [address] Blood 11/27/2023 8:39 AM CDT 11/27/2023 5:16 PM CDT Cathi GERONIMO LAB BLOOD ORDERABLES Fi nal Result Performing Organization Address [facility] Co de Phone Number [facility] [address] [address] [facility] [place] [address] * Smooth muscle antibody, qualitative (11/27/2023 8:39 AM CDT) Anti-smooth muscle Negative Negative Comment:Testing performed by : [facility], [address] [place] [address]., [address] Blood 11/27/2023 8:39 AM CDT 11/27/2023 5:16 PM CDT Cathi GERONIMO LAB BLOOD ORDERABLES Fi nal Result Performing Organization Address City/[facility]/ZIP Co de Phone Number BRITTANY RIVERA [address] Department [place] [address] * (ABNORMAL) Hepatic function panel (11/27/2023 8:39 [...] 11/27/2023 2:38 PM CDT Cathi GERONIMO LAB BLOOD ORDERABLES Fi nal Result BRITTANY RIVERA [address] Department [place] [address] documented in this encounter Visit Diagnoses Diagnosis Elevated LFTs Other abnormal blood chemistry Hepatic steatosis Other chronic nonalcoholic liver disease documented in this encounter Care Teams Dairy Supplies Sales Representative Relationship Specialty Start Date End Date Bj Montaño MD PCP - General Family Medicine 04/15/22 02/19/24 Odilon Chester MD 1 [facility] [place] [address] Referring Physician Gastroenterology 06/06/23 Roosevelt Thomas MD 1 [facility] [place] [address] Fellow Pulmonary Disease 06/06/23 documented as of this encounter
--- OUTSIDE RECORDS SUMMARY | 2024-05-20 13:06 | XMS_ITS | Encounter Summary ---
Author Organization [facility] Address [address] [place] [address] Phone Care Team Providers Care Division Plant Engineer Name Role Phone Odilon Chester MD Unavailable [phone] Roosevelt Thomas MD Unavailable [phone] Leticia Thorne SUPERVISOR VENEER Primary Care Provider [phone] Reason for Visit * Consultation (Routine) - Authorized Specialty Diagnoses / Procedures Referred By Sisi de león Referred To Contact Allergy Diagnoses Dyspnea on exertion Stephani James, SUPERVISOR VENEER [address] [place] [address] Phone: tel: fax: [facility] (All Locations) Referral ID Status Reason Start Date Expiration Date Visits Requested Visits Authorized [id number] Authorized Specialty Services Required 12/29/2023 01/27/2025 25 25 Encounter Details Date Type Department Care Team (Late st Contact Info) Description 02/28/2024 8:30 AM CDT Office Visit [facility] Allergy [facility] Immunology [address] [place] [address] Angela Merritt MD [address] [place] [address] Seasonal allergic rhinitis due to pollen (Primary Dx); Dyspnea on exertion; Allergic rhinitis due to mold Social History Tobacco Use Types Packs/Day Years [...] on file Legal Sex Female 2:22 AM INCIDENT MANAGER Gender Identity Female 05/18/2019 7:17 PM INCIDENT MANAGER Sexual Orientation Straight 05/18/2019 7: 17 PM INCIDENT MANAGER documented as of this encounter Last Filed Vital Signs Vital Sign Reading Time Taken Comments Blood Pressure 135/85 02/28/2024 8:15 AM CDT Pulse 74 02/28/2024 8:15 AM CDT Temperature 36.7 ??C (98 ??F) 02/28/2024 8:15 AM CDT Respiratory Rate 20 02/28/2024 8:15 AM CDT Oxygen Saturation 98% 02/28/2024 8:15 AM CDT Inhaled Oxygen Concentration - - Weight 133.8 kg (295 lb) 02/28/2024 8:15 AM CDT Height 177.8 cm (5' 10 ) 02/28/2024 8:15 AM CDT Body Mass Index 42.33 02/28/2024 8:15 AM CDT documented in this encounter Progress Notes * Shwetha Jeffery, SCHOOL RESOURCE OFFICER - 02/28/2024 10:29 AM CDT 02/28/24 1000 Test Information Consent signed Yes Time allergen placed 1000 Last use of antihistamine (or other medication affecting response to to histamine)? 02/21/24 Allergen healthcare risk control consultant Lund Method Intradermal Location Arm Testing Nurse/JAIME Tadeo Reviewing Physician Dy New Environmental Panel 1 Saline N Maple N New Environmental Panel 2 Bonnerdale N New Environmental Panel 3 Alternaria N New Environmental Panel 4 Aspergillus N Cladosporium N Epicoccum N Geotrichum +2 New Environmental Panel 5 DP mite N DF mite N Cat N UF Dog N * Shwetha Jeffery CMA - 02/28/2024 10:28 AM CDT 02/28/24 0900 Test Information Consent signed Yes Time allergen placed 912 Last use of antihistamine (or other medication affecting response to to histamine)? 02/21/24 Allergen healthcare risk control consultant Lund Method Epicutaneous Location Back Testing Nurse/JAIME Tadeo Reviewing Physician Dy New Environmental Panel 1 Histamine +1 Saline N [place] N Birch N Anita N [place] Arbor N Elm N Due [place] +1 Maple N Ettrick N New Environmental Panel 2 Bonnerdale N Sweet Gum N Pine Valley N Black [place] N Bermuda +1 Brome +4 Etienne +4 [place] Bluegrass +3 Dontae +3 Cocklebur +3 New Environmental Panel 3 Dock/Castle Dale N Kochia N Lambs Quarter +11 Marshelder N Nettle N Pigweed N Plantain +1 Ragweed +1 Sagebrush/Mugwort N Alternaria N New Environmental Panel 4 Aspergillus N Bipolaris N Cladosporium N Curvularia N Epicoccum +/- Fusarium N Geotrichum +/- Helminthsporium N Penicillium N Rhizopus N New Environmental Panel 5 Stemphylium N Trichophyton N DP mite N DF mite N Cat N UF Dog +/- Dog +/- Cockroach N Mouse N Saline N * Talia Ugarte MD - 02/28/2024 8:30 AM CDT Josy Rg Adebayo 1960 Referring Provider: Stephani James NP PCP: Leticia Thorne NP We had the pleasure of seeing Josy Fiore today in the Division of Allergy and Immunology at [facility] for consultation for nasal congestion, rhinorrhea, and SOB/chest tightness. Josy Fiore is a 64 year-old female with sinus infections s/p bilateral turbinectomy and sinus surgery, GERD, DON on CPAP who presents for consultation for nasal congestion, cough, and SOB/chest tightness worse outside and with strong odors. She was referred by Pulmonology. She has been experiencing worsening SOB, chest tightness, and wheezing particularly in the morningssince a COVID infection in 2022. She saw pulmonology who obtained a CT chest demonstrating stable lung scarring likely from COVID. Most recent PFTs were largely unremarkable and negative for asthma. Her nasal congestion and runny nose are worse when she's outside. When she's around certain trees she feels chest tightness and can't catch her breath. Strong smells including smoke, perfumes, and floral scents produce these symptoms as well. She has a cat at home and has used an air purifier in herbedroom since 2012. She does not regularly take any medications for these symptoms. She was rx Symbicort by her chronometer repairer, but only uses it approx once a month when her SOB/wheezing/chest tightness is particularly bad. These symptoms improve with Symbicort. For particularly bad nasal congestion/runny nose she will use nasal saline rinses and Flonase. Also endorses dry, itchy, watery eyes, but she has rosacea. She will use Pataday PRN and artificialtears which improves these symptoms. Experiences an itchy palate as well and takes Claritin 10mg PRN for this which helps. Has not taken any anti-histamines in the past 5 days. Denies hx of ezcema. Past Medical History Past Medical History: Diagnosis Date Anxiety Arthritis Right ankle and knee Cholecystitis Colorectal polyps Depression Diverticulitis GERD (gastroesophageal reflux disease) Hypertension 2 years Migraines 2000 NAFLD (nonalcoholic fatty liver disease) Ovarian cyst Rosacea Past Surgical History Past Surgical History: Procedure Laterality Date CHOLECYSTECTOMY 2013 COLECTOMY 04/18/2019 Laparoscopic sigmoid colectomy COLONOSCOPY 10/03/2018 HYSTERECTOMY 2000 TLH, R SO LAPAROSCOPIC OVARIAN CYSTECTOMY LESIONECTOMY Right 2009 benign skin lesion removed from anterior chest SINUS SURGERY 1985 SKIN CANCER EXCISION Right 1994 V-Y flap R mormonism for BCCa TERATOMA EXCISION Left 1995 L SO TONSILLECTOMY AND ADENOIDECTOMY 1962 TONSILLECTOMY AND ADENOIDECTOMY 1961 Allergies Enoxaparin, Penicillins, and Inapsine [droperidol] Current Medications Current Outpatient Medications: ALPRAZolam (XANAX) 0.25 mg tablet, Take 1 tablet (0.25 mg total) by mouth 3 (three) times a day as needed for anxiety, Disp: , Rfl: azelaic acid 15 % gel, APPLY TOPICALLY TO THE AFFECTED AREA TWICE DAILY, Disp: , Rfl: budesonide-formoteroL (SYMBICORT) 160-4.5 mcg/actuation inhaler, Inhale 2 puffs 2 (two) times a dayRinse mouth with water after use. Do not swallow. (Patient taking differently: Inhale 2 puffs as needed Rinse mouth with water after use. Do not swallow.), Disp: 1 each, Rfl: 3 cholecalciferol (Vitamin D3) 2000 unit capsule, 1 capsule (2,000 Units total), Disp: , Rfl: cyanocobalamin (Vitamin B-12) 1,000 mcg sublingual tablet, Take 1 tablet (1,000 mcg total) by mouthdaily, Disp: , Rfl: dicyclomine (BENTYL) 20 mg tablet, Take 1 tablet (20 mg total) by mouth 3 (three) times a day as needed (abdominal cramping and diarrhea), Disp: 90 tablet, Rfl: 11 losartan-hydroCHLOROthiazide (HYZAAR) 50-12.5 mg per tablet, 1/2 tab am, Disp: , Rfl: omeprazole (PriLOSEC) 40 mg capsule, Take 1 capsule (40 mg total) by mouth 2 (two) times a day before breakfast and dinner, Disp: 60 capsule, Rfl: 2 ondansetron (ZOFRAN) 4 mg tablet, Take 1 tablet (4 mg total) by mouth every 8 (eight) hours as needed for nausea or vomiting, Disp: , Rfl: SUMAtriptan (IMITREX) 100 mg tablet, , Disp: , Rfl: meclizine (ANTIVERT) 25 mg tablet, Take 1 tablet (25 mg total) by mouth as needed for dizziness (Patient not taking: Reported on 02/28/2024), Disp: , Rfl: Social History Patient reports that she has never smoked. She has never used smokeless tobacco. She reports that she does not use drugs. Patient denies consuming alcoholic drinks. Family History Family History Problem Relation Age of Onset Colon cancer Mother Hypertension Mother Gallbladder disease Mother Cancer Mother Depression Mother Gallbladder disease Father Diverticulosis Father Heart attack Father 71 fatal day following [facility] Diverticulosis Brother Diabetes Maternal Grandmother Malig Hyperthermia Neg Hx Anesthesia problems Neg Hx Sudden Cardiac Neg Hx Stroke Neg Hx Bleeding Disorder Neg Hx Clotting disorder Neg Hx Review of Symptoms All other review of systems are negative except noted in HPI. Reviewed patient's history form and the review of systems. Physical Exam BP 135/85 (BP Location: Right arm, Patient Position: Sitting) Pulse 74 Temp 36.7 ??C (98 ??F) (Oral) Resp 20 Ht 177.8 cm (5' 10 ) Wt 133.8 kg (295 lb) SpO2 98% BMI 42.33 kg/m?? General: Patient is well nourished, well developed and in no acute distress. Skin: No rashes HEENT: NC, AT. EOMI. No conjunctival injection. TM clear bilaterally. Nares are patent with pink nasal mucosa. No mucous or drainage present. Oropharynx with no cobblestoning, posterior erythema, or tonsillar exudate. Lungs: CTAB. No wheezing. Cardiovascular: Regular rate and rhythm. No murmur. Allergy Testing After obtaining verbal informed consent, skin testing was performed to our comprehensive environmental panel with aeroallergens tested on epicutaneous testing and aeroallergens tested on intradermal testing. Results are documented in the flowsheet. Test Information Consent signed: Yes Time allergen placed: 1000 Last use of antihistamine (or other medication affecting response to to histamine)?: 02/21/24 Allergen healthcare risk control consultant: Ashely Method: Intradermal Location: Arm Testing Nurse/MA: Shwetha Reviewing Physician: René New Environmental Panel 1 Histamine: +1 Saline : N Anders: N Birch: N Anita: N [place]: N Elm: N [place]: +1 Maple: N [place]tt[place]: N New Environmental Panel 2 [place]: N Sweet Gum: N [place]: N Black [place]: N [place]: +1 Brome: +4 Etienne: +4 [place] Blue[place]: +3 Dontae: +3 Cocklebur: +3 New Environmental Panel 3 Dock/[place]: N Kochia: N [place] Quarter: +11 Marshelder: N Nettle: N Pigweed: N Plantain: +1 Ragweed: +1 Sagebrush/Mugwort: N Alternaria: N New Environmental Panel 4 Aspergillus: N Bipolaris: N Cladosporium: N Curvularia: N Epicoccum: N Fusarium: N Geotrichum: +2 Helminthsporium: N Penicillium: N Rhizopus: N New Environmental Panel 5 Stemphylium: N Trichophyton: N DP mite: N DF mite: N Cat: N UF Dog : N Dog: +/- Cockroach: N Mouse: N Saline: N \ Spirometry PFTs 12/29/2023: FEV1/FVC 80.9% pre, 84.6% post, neg methacholine challenge. Impression: no ventilatory defect or reactivity to methacholine. Impression & Recommendations (J30.1) Seasonal allergic rhinitis due to pollen (primary encounter diagnosis) (R06.09) Dyspnea on exertion Plan: Ambulatory referral to Allergy (J30.89) Allergic rhinitis due to mold This is a 64 year-old female with a history of bilateral turbinectomy/sinus surgery who has been endorsing episodic SOB, chest tightness, and wheezing as well as nasal congestion and rhinorrhea that is worse outside and with strong smells. Her skin testing today was positive for several grasses, weeds, and 1 mold most consistent with allergic rhinitis. Considered PVFM given worsening of her symptoms with certain smells, however her symptoms resolve with anti- histamines and Symbicort, so this isless likely. She did not meet diagnostic criteria for asthma per her most recent PFTs, however there may be a reactive airway component to her overall clinical picture given her respiratory symptoms. Given that her symptoms resolve with Flonase, Claritin, and Symbicort PRN, she should continue these on an as needed basis. Discussed the importance of allergen avoidance --closing windows, masking during yard work, etc. and pre- treating with these medications before going outside. She will follow-up with our clinic as needed if her symptoms are uncontrolled with this plan. Follow up Return if symptoms worsen or fail to improve. Talia Ugarte MD Medications Ordered No orders of the defined types were placed in this encounter. Cosigned by Angela Merritt MD at 02/28/2024 4:33 PM CDT Associated attestation - Angela Merritt MD - 02/28/2024 4:33 PM CDT I have seen and examined the patient. I agree with the findings and plan of care as documented in the resident/fellow's note and as discussed with the resident/fellow. documented in this encounter Plan of Treatment Not on file documented as of this encounter Procedures Procedure Name Priority Date/Time Associated Diagnosis Comments SCAN - LABS 02/28/2024 documented in this encounter Results * SCAN - LABS (02/28/2024) us Provider Scanning Edited Result - Final documented in this encounter Visit Diagnoses Diagnosis Seasonal allergic rhinitis due to pollen- Primary Dyspnea on exertion Other dyspnea and respiratory abnormality Allergic rhinitis due to mold documented in this encounter Discontinued Medications Medication Sig Discontinue Reason Start Date End Da te diphenhydrAMINE (BenadryL) 25 mg capsule Take 1 tablet/capsule (25 mg total) by mouth as needed for itching Therapy completed 02/28/2024 documented as of this encounter Orders Outpatient Referral Count Last Ordered Date Fir st Ordered Date AMB REFERRAL TO ALLERGY 1 02/28/2024 documented in this encounter Care Teams Division Plant Engineer Relationship Specialty Start Date End Date Leticia Thorne NP [address] [place] [address] PCP - General Family Medicine 02/20/24 Odilon Chester MD [address] [facility] [place] [address] Referring Physician Gastroenterology 06/06/23 Roosevelt Thomas MD [address] [facility] [place] [address] Fellow Pulmonary Disease 06/06/23 documented as of this encounter
--- OUTSIDE RECORDS SUMMARY | 2024-05-20 13:07 | XMS_ITS | Encounter Summary ---
Author Organization [facility] Healthcare Address [address] [place] [address] Care Team Providers Care Hot Shot Name Role Phone RoemojganAdam Erik DO Unavailable [phone] Bj Montaño MD Primary Care Provider [phone] Reason for Visit * Auth/Cert (Routine) Specialty Diagnoses / Procedures Referred By Sisi de león Referred To Contact Diagnoses Gastroesophageal reflux disease, unspecified whether esophagitis present Screening for colon cancer Gastroesophageal reflux disease, unspecified whether esophagitis present [K21.9] Screening for colon cancer [Z12.11] Procedures ID COLONOSCOPY FLX DX W/COLLJ SPEC WHEN PFRMD ID ESOPHAGOGASTRODUODENOSCOPY TRANSORAL DIAGNOSTIC ESOPHAGOGASTRODUODENOSCOPY OA/re okayed by Adilia COLONOSCOPY OA/re okayed by Adilia Referral ID Status Reason Start Date Expiration Date Visits Re quested Visits Authorized [id number] 1 1 Encounter Details Date Type Department Care Team (Late st Contact Info) Description 01/04/2023 12:36 PM CDT Anesthesia Event [facility] Endoscopy [address] [place] [address] Jagdeep Tillman MD [address] [facility] [address] [place] [address] Anesthesia Record Procedure Summary Procedure Name Responsible Anesthesiologist Anesthesia Start Time Anesthesia Stop Time ESOPHAGOGASTRODUODENOSCOPY BIOPSY Jagdeep Tillman MD 01/04/23 1236 01/04/23 1326 Events Date Time Event Comment 01/04/2023 1210 1222 AN Equip Check 1236 An Start 1236 An Start Data 1236 In Room 1239 Start Supplemental O2 1241 Patient Positioned Laterally 1242 An Induction The patient was reevaluated immediately before moderate or deep sedation use and before anesthesia induction. 1244 Proc Start 1244 Anesthesia Ready 1318 Proc Fin 1322 Out of Room 1326 an stop data 1326 Handoff to RN I completed my handoff to the receiving nurse during which we: 1. Patient identified 2. Responsible provider identified 3. Pertinent medical history reviewed 4. Procedure type and surgical course discussed 5. Intraoperative anesthetic management and any significant issues discussed 6. Expectations and concerns for postop period discussed 7. Questions solicited from receiving nurse 8. Patient disposition at the time of handoff: No value filed. 1326 An Stop Meds Name Total propofol 550 mg fentaNYL PF 50 mcg Lidocaine IV 2 % 4 mL sodium chloride 0.9% infusion 800 mL * Agents Name O2 N2O Air * Blood No blood administrations on file. Lines, Drains, and Airways Type Details Placement Removal Peripheral IV Placement Date: 12/14 08/04; Placement Time: 1219; Catheter Size: 22 G; Orientation: Posterior, Right; Location: Forearm; Site Prep: Chlorhexidine; Technique: Anatomical landmarks; Inserted by: Marianna Peterson RN; Insertion Attempts: 1; Patient Tolerance: Tolerated well; Removal Date: 01/04/23; Removal Time: 1400 01/04/23 1219 by Talon Lopes RN 01/04/23 1400 by Chayo Brock RN documented in this encounter Social History Tobacco Use Types Packs/Day Years Used Date Smoking Tobacco: Never Smokeless Tobacco: Never Alcohol Use Standard Drinks/Week Comments Not Currently 0 (1 standard drink = 0.6 oz pur e alcohol) AUDIT-C Answer Date Recorded Q1: How often do you have a drink containing alcohol? Never 01/04/2023 Q2: How many drinks containi ng alcohol do you have on a typical day when you are drinking? Patient does not drink Q3: How often do you have si x or more drinks on one occasion? Never 01/04/2023 Comments No Sex and Gender Information Value Date Recorded Sex Assigned at Not on file Legal Sex Female 2:22 AM COLLECTION OFFICER Gender Identity Female 05/18/2019 7:17 PM COLLECTION OFFICER Sexual Orientation Straight 05/18/2019 7: 17 PM COLLECTION OFFICER documented as of this encounter OR Notes * Anesthesia Postprocedure Evaluation - Kyleigh Lujan MD - 01/04/2023 1:36 PM CDT Patient: Josy Fiore Procedure Summary Date: 01/04/23 Room / Location: [facility] ENDOSCOPY ROOM [facility] ENDOSCOPY Anesthesia Start: 1236 Anesthesia Stop: 1326 Procedures: ESOPHAGOGASTRODUODENOSCOPY BIOPSY COLON REMOVAL SNARE (Colon) Diagnosis: Gastroesophageal reflux disease, unspecified whether esophagitis present Screening for colon cancer (Gastroesophageal reflux disease, unspecified whether esophagitis present [K21.9]) (Screening for colon cancer [Z12.11]) Providers: Odilon Chester MD Responsible Provider: Jagdeep Tillman MD Anesthesia Type: general ASA Status: 3 Anesthesia Type: general Last vitals BP 116/72 Pulse 72 Temp 36.1 ??C (97 ??F) Resp 12 SpO2 97% Anesthesia Post Evaluation Patient location during evaluation: PACU Patient participation: complete - patient participated Level of consciousness: fully awake Pain score: 0 Pain management: adequate Airway patency: adequate Evidence of recall: no Cardiovascular status: hemodynamically stable and acceptable Respiratory status: acceptable and room air Hydration status: acceptable Pt is: normothermic Nausea/Vomiting status: none No notable events documented. * Anesthesia Preprocedure Evaluation - Jagdeep Tillman MD - 01/04/2023 12:10 PM CDT Images from the original note were not included. Anesthesia Evaluation Josy Fiore is a 62 y.o. female Procedure(s): ESOPHAGOGASTRODUODENOSCOPY OA/re okayed by Adilia COLONOSCOPY OA/re okayed by Adilia Pre-Op Diagnosis Codes: * Gastroesophageal reflux disease, unspecified whether esophagitis present [K21.9] * Screening for colon cancer [Z12.11] Patient Active Problem List Diagnosis Diverticulitis Achilles tendinitis of left lower extremity NAFLD (nonalcoholic fatty liver disease) Retinal tear of left eye Posterior vitreous detachment, both eyes Abnormal CT scan Past Medical History: Diagnosis Date Anxiety Arthritis Right ankle and knee Cholecystitis Colorectal polyps Depression Diverticulitis GERD (gastroesophageal reflux disease) Hypertension 2 years Migraines 2000 NAFLD (nonalcoholic fatty liver disease) Ovarian cyst Rosacea Past Surgical History: Procedure Laterality Date CHOLECYSTECTOMY 2013 COLECTOMY 04/18/2019 Laparoscopic sigmoid colectomy COLONOSCOPY 10/03/2018 GALLBLADDER SURGERY 2012 HYSTERECTOMY 2000 TLH, R SO LAPAROSCOPIC OVARIAN CYSTECTOMY LESIONECTOMY Right 2009 benign skin lesion removed from R anterior chest SINUS SURGERY 1984 SKIN CANCER EXCISION Right 1994 V-Y flap R latter day for BCCa TERATOMA EXCISION Left 1995 L SO TONSILLECTOMY AND ADENOIDECTOMY 1962 TONSILLECTOMY AND ADENOIDECTOMY 1961 OB History No obstetric history on file. Allergies Allergen Reactions Enoxaparin Hives, Itching, Redness and Swelling Penicillins Swelling Inapsine [Droperidol] Anxiety irritability Med List Status: Nurse Complete Set By: Talon Lopes RN at 01/04/2023 12:03 PM Taking? Last Dose Start Date End Date Provider ALPRAZolam (XANAX) 0.25 mg tablet 01/04/2023 -- -- Channing Lopez MD azelaic acid 15 % gel 01/03/2023 11/18/22 -- Channing Lopez MD budesonide-formoteroL (SYMBICORT) 160-4.5 mcg/actuation inhaler More than a month 11/24/22 11/24/23Roosevelt Thomas MD Inhale 2 puffs 2 (two) times a day Rinse mouth with water after use. Do not swallow. cetirizine (ZyrTEC) 10 mg tablet Past Week -- -- Channing Lopez MD losartan-hydroCHLOROthiazide (HYZAAR) 50-12.5 mg per tablet 01/04/2023 10/14/20 -- Channing Lopez MD pantoprazole DR (PROTONIX) 40 mg EC tablet 01/03/2023 10/19/22 -- Channing Lopez MD psyllium husk (METAMUCIL ORAL) Past Week -- -- Channing Lopez MD sodium, potassium & mag sulfates (SUPREP BOWEL KIT) 17.5-3.13-1.6 gram recon soln 01/04/2023 11/24/22 -- Odilon Chester MD Use prep per instructions the day before procedure for bottle #1 & bottle #2 the AM of procedure soy isofla/blk cohosh/mag bark (ESTROVEN ORAL) -- -- -- Channing Lopez MD sucralfate (CARAFATE) suspension 1 gram/10 mL -- 11/23/22 -- Channing Lopez MD SUMAtriptan (IMITREX) 100 mg tablet -- -- -- Channing Lopez MD venlafaxine 225 mg tablet extended release 24hr 24 hr tablet -- 05/12/22 -- Channing Lopez MD Current Facility-Administered Medications: famotidine (PEPCID) injection 20 mg, 20 mg, intravenous, Once ondansetron (ZOFRAN) injection 4 mg, 4 mg, intravenous, Once ondansetron (ZOFRAN) injection 4 mg, 4 mg, intravenous, Q6H PRN sodium chloride 0.9% flush 0.5-20 mL, 0.5-20 mL, intra-catheter, PRN sodium chloride 0.9% infusion, 30 mL/hr, intravenous, Continuous Social History Tobacco Use Smoking Status Never Smokeless Tobacco Never Alcohol Use: Not At Risk (01/04/2023) AUDIT-C Frequency of Alcohol Consumption: Never Average Number of Drinks: Patient does not drink Frequency of Binge Drinking: Never Substance and Sexual Activity Drug Use Never Family History Problem Relation Age of Onset Colon cancer Mother Hypertension Mother Gallbladder disease Mother Cancer Mother Depression Mother Gallbladder disease Father Diverticulosis Father Heart attack Father 71 fatal day following C Diverticulosis Brother Diabetes Maternal Grandmother Malig Hyperthermia Neg Hx Anesthesia problems Neg Hx Sudden Cardiac Neg Hx Stroke Neg Hx Bleeding Disorder Neg Hx Clotting disorder Neg Hx Vitals: 01/04/23 1205 Temp: 36.1 ??C (97 ??F) PT: No results found for requested labs within last 30 days. INR: No results found for requested labs within last 30 days. APTT: No results found for requested labs within last 30 days. Hgb A1C: No results found for requested labs within last 30 days. CBC RBC: No results found for requested labs within last 30 days. RDW: No results found for requested labs within last 30 days. MCHC: No results found for requested labs within last 30 days. MCH: No results found for requested labs within last 30 days. MCV: No results found for requested labs within last 30 days. Hct: No results found for requested labs within last 30 days. Hgb: No results found for requested labs within last 30 days. WBC: No results found for requested labs within last 30 days. MPV: No results found for requested labs within last 30 days. Platelets: No results found for requested labs within last 30 days. RDW CV: No results found for requested labs within last 30 days. RDW Sd: No results found for requested labs within last 30 days. BMP Glucose: No results found for requested labs within last 30 days. Calcium: No results found for requested labs within last 30 days. Sodium: No results found for requested labs within last 30 days. Potassium: No results found for requested labs within last 30 days. CO2: No results found for requested labs within last 30 days. Chloride: No results found for requested labs within last 30 days. BUN: No results found for requested labs within last 30 days. Creatinine: No results found for requested labs within last 30 days. DOS Physical Exam Medical history, medications, and allergies reviewed. Attestation: This PAT evaluation Airway Exam: Mallampati: III Cervical ROM: FROM Cardiovascular Exam: Rate: regular Rhythm: regular Pulmonary Exam: LCTA, bilat Anesthesia Plan ASA 3 My patient is approved for the Anesthesia Controlled Medication protocol when under care of a NEWS VIDEOTAPE EDITOR Planned anesthesia: General Informed Consent: Anesthesia plan and risks discussed with patient. Plan and Consent Comments: Shonda saenz Consent and Attending signature: I and/or my designee have discussed the anesthesia plan, benefits, possible alternatives, parental presence at time of induction (if indicated), and clinically relevant risks that may include dental injury, unintentional awareness, and/or other complications. The patient and/or parent/legal guardian understand, and agree to proceed. All questions answered. documented in this encounter Plan of Treatment Not on file documented as of this encounter Visit Diagnoses Not on filedocumented in this encounter Administered Medications Inactive Administered Medications - up to 3 most recent administrations Medication Order MAR Action Action Date Dose Rate Site fentaNYL (SUBLIMAZE) preservative free injection intravenous, As needed, Starting on Mon01/04/23 at 1241, Anesthesia Intra-op Given 01/04/2023 12:41 PM CDT 50 mcg lidocaine (XYLOCAINE) 20 mg/mL (2 %) injection intravenous, As needed, Starting on Mon01/04/23 at 1242, Anesthesia Intra-op, Indications: Administration of Local AnesthesiaIndications:Administrat ion of Local Anesthesia Given 01/04/2023 12:42 PM CDT 4 mL propofoL (DIPRIVAN) 10 mg/mL IV intravenous, As needed, Starting on Mon01/04/23 at 1242, Anesthesia Intra-op Given 01/04/2023 1:14 PM CDT 50 mg Given 01/04/2023 1:10 PM CDT 50 mg Given 01/04/2023 1:06 PM CDT 50 mg sodium chloride 0.9% infusion 30 mL/hr, intravenous, Continuous, Starting on Mon01/04/23 at 1230, Pre-Procedure (GI) Restarted 01/04/2023 1:11 PM CDT Rate/Dose Verify 01/04/2023 12:36 PM CDT 30 mL/ hr New Bag 01/04/2023 12:20 PM CDT 30 mL/hr 30 mL/hr documented in this encounter Care Teams Hot Shot Relationship Specialty Start Date End Date Bj Montaño MD PCP - General Family Medicine 04/15/22 02/19/24 Adam English DO [facility] 03/26/19 06/05/23 documented as of this encounter
--- OUTSIDE RECORDS SUMMARY | 2024-05-20 13:07 | XMS_ITS | Encounter Summary ---
Author Organization [facility] Address [address] [place] [address] Phone Care Team Providers Care Tank Carpenter Name Role Phone Bj Montaño MD Primary Care Provider [phone] Odilon Chester MD Unavailable [phone] Roosevelt Thomas MD Unavailable [phone] Encounter Details Date Type Department Care Team (Late st Contact Info) Description 06/15/2023 Telephone [facility] Pulmonary [address] [facility] Advanced Medicine [address] [place] [address] [place] [address] Zina Ojeda, ERASTO Social History Tobacco Use Types Packs/Day Years [...] more drinks on one occasion? Never 01/04/2023 Personal Safety Answer Date Recorded Getting School Help Needed Denies 04/27 Comments No Sex and Gender Information Value Date Recorded Sex Assigned at Not on file Legal Sex Female 2:22 AM SHEET METAL SUPERVISOR Gender Identity Female 05/18/2019 7:17 PM SHEET METAL SUPERVISOR Sexual Orientation Straight 05/18/2019 7: 17 PM SHEET METAL SUPERVISOR documented as of this encounter Miscellaneous Notes * Telephone Encounter - Zina Ojeda RN - 06/15/2023 1:19 PM SHEET METAL SUPERVISOR Message sent to scheduling hub to reschedule and change provider to GEORGETTE Styles ----- Message from Roosevelt Thomas MD sent at 06/15/2023 12:57 PM SHEET METAL SUPERVISOR ----- Regarding: RE: Cancel & Reschedule Contact: yes ----- Message ----- From: Zina Ojeda RN Sent: 06/15/2023 12:11 PM SHEET METAL SUPERVISOR To: Roosevelt Thomas MD Subject: FW: Cancel & Reschedule Can I reschedule this patient with Stephani in December? ----- Message ----- From: Sindy Harvey RMA Sent: 06/14/2023 12:16 PM SHEET METAL SUPERVISOR To: Zina Ojeda RN Subject: Cancel & Reschedule Pt would like to cancel & reschedule appt on 12-19-2023. Thanks, Dione T METAL SUPERVISOR T METAL SUPERVISOR documented in this encounter Plan of Treatment Not on file documented as of this encounter Visit Diagnoses Not on filedocumented in this encounter Care Teams Tank Carpenter Relationship Specialty Start Date End Date Bj Montaño MD PCP - General Family Medicine 04/15/22 02/19/24 Odilon Chester MD 1 [facility] [place] [address] Referring Physician Gastroenterology 06/06/23 Roosevelt Thomas MD 1 [facility] [place] [address] Fellow Pulmonary Disease 06/06/23 documented as of this encounter
--- OUTSIDE RECORDS SUMMARY | 2024-05-20 13:07 | XMS_ITS | Encounter Summary ---
Author Organization [facility] Address [address] [place] [address] Phone Care Team Providers Care Computational Scientist Name Role Phone Amador Adam LucianoBarbara DO Unavailable [phone] Bj Montaño MD Primary Care Provider [phone] Reason for Visit * Sleep Medicine (Routine) - Closed Specialty Diagnoses / Procedures Referred By Sisi de león Referred To Contact Diagnoses Snoring Morbid obesity (HCC) Essential hypertension Procedures Portable/Home Sleep Study Peace Escobar NP Phone: tel: fax: [facility] (All Locations) Referral ID Status Reason Start Date Expiration Date Visits Re quested Visits Authorized [id number] Closed 02/23/2023 04/23/2023 1 1 Encounter Details Date Type Department Care Team (Latest Contact Info) Description 03/07/2023 10:00 AM CDT Procedure visit [facility] Neuro Sleep [address] 6[address] [place] [address] Disturbance in sleep behavior (Primary Dx); Snoring; Morbid obesity (HCC); Essential hypertension Social History Tobacco Use Types Packs/Day Years [...] on file 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 Sleep View - Serial # . I understand that this is a temporary loaner and the device must be returned by 03/08/23. If an extension is needed or have any questions or concerns, I will contact Sukhwinder at [phone]. If I fail to contact or return the device, I understand I will be charged for the cost in full. By signing this form, I have read and understand the agreement: Patient Signature: Witness Signature: Date: 03/07/2023 70 298 lbs ING MACHINE OPERATOR * Henry Freitas MD - 03/07/2023 10:00 AM CDTAssociated Order(s): Portable/Home Sleep Study Pre-Procedure Diagnose(s): Snoring; Morbid obesity (HCC); Essential hypertension Post-Procedure Diagnose(s): Snoring; Morbid obesity (HCC); Essential hypertension Images from the original note were not included. Portable/Home Sleep Study Date/Time: 03/07/2023 10:00 PM Performed by: Henry Freitas MD Authorized by: Peace Escobar NP [facility] [address] [place] [id number] Home Sleep Apnea Test (HSAT) Report (Sub-optimal PTAF signal throughout the study) Patient Name: Josy Fiore : 1960 Patient Date of Service: 03/07/2023 CLINICAL HISTORY: 63-year-old Female who presents Height: 70.0 in Weight: 298 BMI: 42.75 PROCEDURE: Unless otherwise noted, respiratory events were scored in accordance with recommended parameters as outlined in the AASM Manual for the Scoring of Sleep and Associated Events, Version 3.0.Hypopneas were scored in accordance with acceptable parameters as outlined in Chapter IX, Part 1: HSAT Utilizing Respiratory Flow and/or Effort Parameters, Category H., Section 2B. Additionally, hypopnea count and CLINTON/AHI utilizing recommended scoring parameters as outlined in Category H., Section 2A, will be reported separately in this report. The patient underwent a digital diagnostic portable type 3 device home sleep test; Utilizing [employer]'s Solaria portable sleep monitor. Sleep time was recorded via actigraphy derived from an accelerometer physically integrated into the SleepView unit; also providing body position monitoring. Airflow and snore were recorded via an oral/nasal cannula. Respiratory effort was recorded via Respiratory Inductance Plethysmography. Oxygen saturation was obtained by a pulse oximeter, to identify oxygen desaturations and heart rate variations. All raw data was graphically depicted and utilized for scoring and detailed interpretive review. Raw data was deemed technically accurate. The patient underwent one night of study. The data was recorded internally to memory built into theSolaria unit and uploaded to [email or web address]. Sleep center faculty and staff performed scoring and interpretation. All raw data, graphically depicting all recorded channels, was utilized for scoring and detailed interpretive review. SLEEP TIME AND EFFICIENCY: The sleep study recording began at 09:20:39 PM and ended at 07:46:21 AM.Total recording time was 625.7 minutes. The total sleep time was 551.0 minutes. The sleep efficiency was 88.1 percent. The patient spent 478.1 minutes supine, and spent 73.0 minutes non-supine. RESPIRATORY DATA: The AHI in this report is indexed to sleep time based on actigraphy. The AASM defines this as CLINTON. The AHI on this type 3 Home Sleep Study may understate the AHI determined on a type 1 or 2 study, since EEG is not monitored resulting in the inability to score non-desaturating hypopneas. Based on 3% Calculation: The 3% AHI calculation of 2.6 per hour of sleep time was based on a total of 8 scored apneas and 16 scored hypopneas with 3% desaturations. Supine 3% AHI:2.9 per hour. Non-supine 3% AHI: 0.0 per hour. Based on 4% Calculation: The 4% AHI calculation of 1.4 per hour of sleep time was based on a total of 8 scored apneas and 5 scored hypopneas with 4% desaturations. Supine 4% AHI: 1.5 per hour. Non-supine 4% AHI: 0.0 per hour. Oxygen Summary: Patient's baseline O2 saturation was 97.3 %. The patient spent 00:00 minutes at an oxygen saturation less than or equal to 88%, The desaturation index, based on 3% oxygen desaturations, was 2.9 events per hour sleep time. The lowest saturation was 83.3 %. SNORING: The percent of the study time spent snoring was 0.0 %. PULSE RATE REVIEW: The mean heart rate was 72 beats per minute. The rate ranged from a low of 44 toa high of 89 beats per minute. Limitations of the study: Sleep time and sleep stages were determined by actigraphy. Sleep EEG was not recorded. Interpretation: This home sleep apnea did not demonstrate obstructive sleep apnea. This study was limited by a poor airflow signal throughout the recording and may have underestimated the severity ofsleep apnea. Recommend repeat home sleep apnea testing or in lab, attended sleep study for further evaluation of possible obstructive sleep apnea and unexplained sleep symptoms. Diagnosis: disturbance of sleep behavior G47.9, snoring R06.83 By signing this report, I certify that I have read this home sleep test, edited the report, and agree with the description of findings and interpretation contained in this written report. Henry Freitas M.D., FAASM Professor of Neurology [facility] Diplomate, [place] Board of Psychiatry and Neurology with added Qualifications in Sleep Medicine SleepView Report Patient Name: Josy Fiore Physician: Henry Freitas MD Recording Date: 03/07/2023 : 1960 Height: 70.0 in Weight: 298.0 lb Gender: Female BMI: 42.75 Neck Size: 0.0 in RECORDING SUMMARY: Acquisition Start: 09:20:39 PM Acquisition End: 07:46:21 AM Total Acquisition Time: 625.7 min Total Sleep Time: 551.0 min Sleep Efficiency: 88.1 % RESPIRATORY SUMMARY O. Apnea Events: 8 O. Apnea Index: 0.9 Central Apnea Events: 0 Central Apnea Index: 0.0 Mixed Apnea Events: 0 Mixed Apnea Index: 0.0 Total Number of Apnea Events: 8 Total Apnea Index: 0.9 4% O. Hypopnea Events: 5 4% O. Hypopnea Index: 0.5 3% O. Hypopnea Events: 16 3% O. Hypopnea Index: 1.7 4% Hypopnea & Apnea Events: 13 4% Hypopnea & Apnea Index (4%AHI): 1.4 3% Hypopnea & Apnea Events: 24 3% Hypopnea & Apnea Index (3%AHI): 2.6 Longest O.Apnea Duration: 74 sec Longest O.Hypopnea Duration: 88 sec Mean O.Apnea Duration: 39 sec Mean O.Hypopnea Duration: 34 sec SLEEP APNEA SEVERITY SCALE Normal Mild Moderate Severe AHI <5 AHI 5-14 AHI 15-29 AHI 30 or > APNEA I HYPOPNEA EVENTS by BODY POSITION (3% DESATURATIONS): Position: SUPINE PRONE LEFT RIGHT UPRIGHT Number: 23 0 0 0 0 Index: 2.9 N/A 0.0 0.0 0.0 DESATURATION SUMMARY TABLE RAHEEM 3%: 2.9 MeanSpO2%: 94.9 % RAHEEM 4%: 0.7 Maximum SpO2%: 99 % Baseline Sa02%: 97.3 % Lowest Sa02%: 83.3 % Time Spent <= 88%: 00:00 Percent Time Spent <= 88%: 0.1 90+ 90-80 80-70 70-60 60-50 50-40 40- Mins: 547.1 3.9 0.0 0.0 0.0 0.0 0.0 % Time: 99.3 0.7 0.0 0.0 0.0 0.0 0.0 SNORE SUMMARY SNORE Count: 0 SNORE Index: 0.0 SNORE Supine Count: 0 SNORE Supine Index: 0.0 SNORE Non-Supine Count: 0 SNORE Non-Supine Index: 0.0 Percent of sleep time snorin.0 PULSE RATE SUMMARY Mean Heart Rate (bpm): 72 Minimum Heart Rate (bpm): 44 Maximum Heart Rate (bpm): 89 ING MACHINE OPERATOR documented in this encounter Plan of Treatment Not on file documented as of this encounter Procedures Procedure Name Priority Date/Time Associated Diagnosis Comments PORTABLE/HOME SLEEP STUDY Routine 03/07/2023 10:00 PM CDT Snoring Morbid obesity (HCC) Essential hypertension documented in this encounter Results * PORTABLE/HOME SLEEP STUDY (03/07/2023 10:00 PM CDT) Narrative Henry Freitas MD - 03/07/2023 10:00 PM CDT Henry Freitas MD ? 03/21/2023 ??4:13 PM Portable/Home Sleep Study Date/Time: 03/07/2023 10:00 PM Performed by: Henry Freitas MD Authorized by: Peace Escobar NP ?? us Peace Escobar NP SLEEP CENTER ORDERABLES F inal Result documented in this encounter Visit Diagnoses Diagnosis Disturbance in sleep behavior- Primary Unspecified sleep disturbance Snoring Other dyspnea and respiratory abnormality Morbid obesity (HCC) Morbid obesity Essential hypertension Unspecified essential hypertension documented in this encounter Care Teams Computational Scientist Relationship Specialty Start Date End Date Bj Montaño MD PCP - General Family Medicine 04/15/22 02/19/24 Adam English DO Cyanide Furnace Operator Gastroenterology 03/26/19 06/05/23 documented as of this encounter
--- OUTSIDE RECORDS SUMMARY | 2024-05-20 13:07 | XMS_ITS | Encounter Summary ---
Author Organization [facility] Address [address] [place] [address] Phone Care Team Providers Care Straight Edger Name Role Phone Adam English DO Unavailable [phone] Bj Montaño MD Primary Care Provider [phone] Encounter Details Date Type Department Care Team (Late st Contact Info) Description 05/25/2023 Documentation [facility] Gastroenterology [address] [facility] 12th [place] [address] [place] [address] Daria Nagel Social History Tobacco [...] on file Legal Sex Female 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 Gender Identity Female 05/18/2019 7:17 PM WAREHOUSE PERSON Sexual Orientation Straight 05/18/2019 7: 17 PM WAREHOUSE PERSON documented as of this encounter Progress Notes * Daria Nagel - 05/25/2023 9:14 AM CST PA submitted for pantoprazole HOUSE PERSON documented in this encounter Plan of Treatment Not on file documented as of this encounter Visit Diagnoses Not on filedocumented in this encounter Care Teams Straight Edger Relationship Specialty Start Date End Date Bj Montaño MD PCP - General Family Medicine 04/15/22 02/19/24 Adam English DO Commercial Plumber Gastroenterology 03/26/19 06/05/23 documented as of this encounter
--- OUTSIDE RECORDS SUMMARY | 2024-05-20 13:07 | XMS_ITS | Encounter Summary ---
Author Organization [facility] Healthcare Address [address] [place] [address] Care Team Providers Care Senior Developer Name Role Phone Bj Montaño MD Primary Care Provider [phone] Odilon Chester MD Unavailable [phone] Roosevelt Thomas MD Unavailable [phone] Reason for Visit * Auth/Cert (Routine) Specialty Diagnoses / Procedures Referred By Sisi de león Referred To Contact Diagnoses Gastritis without bleeding, unspecified chronicity, unspecified gastritis type Gastric polyp Gastritis without bleeding, unspecified chronicity, unspecified gastritis type [K29.70] Gastric polyp [K31.7] Procedures [place] ESOPHAGOGASTRODUODENOSCOPY TRANSORAL DIAGNOSTIC ESOPHAGOGASTRODUODENOSCOPY Referral ID Status Reason Start Date Expiration Date Visits Re quested Visits Authorized [id number] 1 1 Encounter Details Date Type Department Care Team (Latest Contact Info) Description 07/12/2023 6:49 AM WINDOWS APPLICATION ADMINISTRATOR - 07/12/2023 9:35 AM [facility] Hospital Encounter [facility] Endoscopy [id number] [place] [address] Odilon Chester MD [address] [facility] [address] [place] [address] Gastritis without bleeding, unspecified chronicity, unspecified gastritis type; Gastric polyp Discharge Disposition: Discharge to home or self [...] on file Legal Sex Female 2:22 AM WINDOWS APPLICATION ADMINISTRATOR Gender Identity Female 05/18/2019 7:17 PM WINDOWS APPLICATION ADMINISTRATOR Sexual Orientation Straight 05/18/2019 7: 17 PM WINDOWS APPLICATION ADMINISTRATOR documented as of this encounter Last Filed Vital Signs Vital Sign Reading Time Taken Comments Blood Pressure 106/64 07/12/2023 9:20 AM WINDOWS APPLICATION ADMINISTRATOR Pulse 67 07/12/2023 9:25 AM WINDOWS APPLICATION ADMINISTRATOR Temperature 36.3 ??C (97.3 ??F) 07/12/2023 8:45 AM CS T Respiratory Rate 54 07/12/2023 9:25 AM WINDOWS APPLICATION ADMINISTRATOR Oxygen Saturation 97% 07/12/2023 9:20 AM WINDOWS APPLICATION ADMINISTRATOR Inhaled Oxygen Concentration - - Weight - - Height - - Body Mass Index - - documented in this encounter Medications at Time of Discharge [...] unit capsule 1 capsule (2,000 Units total) losartan-hydroCH LOROthiazide (HYZAAR) 50-12.5 mg per tablet 1/2 tab am 10/14/2020 SUMAtriptan (IMITREX) 100 mg tablet cetirizine (ZyrTEC) 10 mg tablet Take 1 tablet (10 mg total) by mouth as needed for allergies 4 omeprazole (PriLOSEC) 20 mg capsule Take 1 capsule (20 mg total) by mouth 2 (two) times a day 180 capsule 3 07/12/2023 4 psyllium husk (METAMUCIL ORAL) Take 6 Caplet by mouth every morning 6 caps am 4 soy isofla/blk cohosh/mag bark (ESTROVEN ORAL) Take by mouth Unsure med dosage every day hs 4 venlafaxine 225 mg tablet extended release 24hr 24 hr tablet 05/12/2022 4 documented as of this encounter Ordered Prescriptions Prescription Sig Dispense Quantity Refills Last Filled Start Date End Date omeprazole (PriLOSEC) 20 mg capsule Take 1 capsule (20 mg total) by mouth 2 (two) times a day 180 capsule 3 07/12/2023 4 documented in this encounter Discharge Disposition Disposition Code Departure Means Destination Comment s Discharge to home or self care Wheelchair documented in this encounter H&P Notes * Odilon Chester MD - 07/12/2023 8:17 AM CST Pre Endoscopy History and Physical Josy Poole is a 63 y.o. female who is here for Procedure(s): ESOPHAGOGASTRODUODENOSCOPY The indication(s) for the procedure(s): gastric polyp. Past Medical History: Diagnosis Date Anxiety Arthritis [...] CANCER EXCISION Right 1994 V-Y flap R congregation for B[facility] TERATOMA EXCISION Left 1995 L SO TONSILLECTOMY AND ADENOIDECTOMY 1963 TONSILLECTOMY AND ADENOIDECTOMY 1961 Social History Tobacco Use Smoking status: Never Smokeless tobacco: Never Substance and Sexual Activity Drug use: Never Sexual activity: Yes Partners: Male control/protection: None Alcohol Use: Not At Risk (07/12/2023) AUDIT-C Frequency of Alcohol Consumption: Never Average Number of Drinks: Patient does not drink Frequency of Binge Drinking: Never Family History Problem Relation Age of Onset Colon cancer Mother Hypertension Mother Gallbladder disease Mother Cancer Mother Depression Mother Gallbladder disease Father Diverticulosis Father Heart attack Father 71 fatal day following LHC Diverticulosis Brother Diabetes Maternal Grandmother Malig Hyperthermia Neg Hx Anesthesia problems Neg Hx Sudden Cardiac Neg Hx Stroke Neg Hx Bleeding Disorder Neg Hx Clotting disorder Neg Hx Allergies Allergen Reactions Enoxaparin Hives, Itching, Redness and Swelling Penicillins Swelling Inapsine [Droperidol] Anxiety irritability Prior to Admission medications Medication Sig Start Date End Date Taking? Authorizing Provider budesonide-formoteroL (SYMBICORT) 160-4.5 mcg/actuation inhaler Inhale 2 puffs 2 (two) times a day Rinse mouth with water after use. Do not swallow. 11/24/22 11/24/23 Yes Roosevelt Thomas MD cetirizine (ZyrTEC) 10 mg tablet Take 1 tablet (10 mg total) by mouth as needed for allergies Yes Channing Lopez MD cholecalciferol (Vitamin D3) 2000 unit capsule 1 capsule (2,000 Units total) Yes Channing Lopez MD losartan-hydroCHLOROthiazide (HYZAAR) 50-12.5 mg per tablet 10/14/20 Yes Channing Lopez MD omeprazole (PriLOSEC) 20 mg capsule Take 1 capsule (20 mg total) by mouth daily 06/01/23 05/31/24 Odilon Rae MD psyllium husk (METAMUCIL ORAL) Take 6 Caplet by mouth every morning 6 caps am Yes Channing Lopez MD soy isofla/blk cohosh/mag bark (ESTROVEN ORAL) Take by mouth Unsure med dosage every day hs Yes Channing Lopez MD venlafaxine 225 mg tablet extended release 24hr 24 hr tablet 05/12/22 Yes Channing Lopez MD ALPRAZolam (XANAX) 0.25 mg tablet Take 1 tablet (0.25 mg total) by mouth 3 (three) times a day as needed for anxiety Channing Lopez MD azelaic acid 15 % gel APPLY TOPICALLY TO THE AFFECTED AREA TWICE DAILY 11/18/22 Channing Lopez MD SUMAtriptan (IMITREX) 100 mg tablet Provider, MD Channing Review of Systems A pertinent, focused review of systems was completed and negative, except as noted above. OBJECTIVE: Vitals: There were no vitals filed for this visit. Physical Exam: Airway: No significant abnormality. Cardiac: No significant abnormality. Pulmonary: No significant abnormality. Neurological: No significant abnormality. Gastrointestinal: obese . ASA Score: per Anesthesia Sedation/Anesthesia Plan: per Anesthesia The risks and complications of the procedure have been explained to the patient. Informed consent was signed. Impression and plan: Will proceed with the planned procedure for the reasons stated above. OWS APPLICATION ADMINISTRATOR documented in this encounter Procedure Notes * Odilon Chester MD - 07/12/2023 8:15 AM CSTAssociated Order(s): EGD ENDOSCOPY LAB Patient Name: Josy Poole Procedure Date: 07/12/2023 8:15 AM Date of : 1960 Admit Type: Outpatient Age: 63 Gender: Female Attending MD: Odilon Chester M.D. Room: [facility] ENDOSCOPY ROOM 03 Note Status: Finalized Procedure: Upper GI endoscopy Indications: gastric hyperplastic polyp Providers: Odilon Chester M.D. Referring MD: Bj Montaño M.D. Medicines: Monitored Anesthesia Care Complications: No immediate complications. Estimated Blood Loss: Estimated blood loss was minimal. Procedure: Pre-Anesthesia Assessment: - Prior to the procedure, a History and Physical was performed, and patient medications, allergies and sensitivities were reviewed. The patient's tolerance of previous anesthesia was reviewed. - The risks and benefits of the procedure and the sedation options and risks were discussed with the patient. All questions were answered and informed consent was obtained. - Immediately prior to administration of medications, the patient was re-assessed for adequacy to receive sedatives. After obtaining informed consent, the endoscope was passed under direct vision. Throughout the procedure, the patient's blood pressure, pulse, and oxygen saturations were monitored continuously. The [id number] was introduced through the mouth, and advanced to the second part of duodenum. The upper GI endoscopy was accomplished without difficulty. The patient tolerated the procedure well. Findings: The examined esophagus was normal. A single 8 mm sessile polyp with no stigmata of recent bleeding was found in the cardia. The polyp was removed with a hot snare. A small remaining edge was removed with forceps. Resection and retrieval were complete. The exam of the stomach was otherwise normal. The examined duodenum was normal. Impression: - Normal esophagus. - A single gastric polyp. Resected and retrieved. - Normal examined duodenum. Recommendation: - Await pathology results. - Repeat upper endoscopy in 1 year for surveillance based on pathology results. - Contact Information: During normal business hours - Please call the Nurse Coordinator: [phone] After hours, evening, nights, weekends and holidays - Please call the hospital dairy machine operator farmworker at and ask for the GI fellow accounting manager assistant controller. Attending Participation: I personally performed the entire procedure. Electronically signed by Odilon Chester MD Odilon Chester M.D. 07/12/2023 8:36:13 AM Number of Addenda: 0 Note Initiated On: 07/12/2023 8:15 AM OWS APPLICATION ADMINISTRATOR documented in this encounter Miscellaneous Notes * Perioperative Nursing Note - Josefina Cordova RN - 07/12/2023 10:33 AM CST 925 Discharge instructions were given to patient OWS APPLICATION ADMINISTRATOR * Perioperative Nursing Note - Josefina Cordova RN - 07/12/2023 9:[address] Chester at bedside to explain findings from procedure and discharge instructions to patient and patient they verbalized understanding OWS APPLICATION ADMINISTRATOR documented in this encounter Plan of Treatment Not on file documented as of this encounter Procedures Procedure Name Priority Date/Time Associated Diagnosis Comments SURGICAL PATHOLOGY Routine 07/12/2023 8:28 AM WINDOWS APPLICATION ADMINISTRATOR Gastritis without bleeding, unspecified chronicity, unspecified gastritis type Gastric polyp EGD 07/12/2023 8:15 AM WINDOWS APPLICATION ADMINISTRATOR ESOPHAGOGASTRODUODENOSCOPY REMOVAL SNARE 07/12/2023 8:11 AM WINDOWS APPLICATION ADMINISTRATOR Gastritis without bleeding, unspecified chronicity, unspecified gastritis type Gastric polyp documented in this encounter Results * Surgical pathology (07/12/2023 8:28 AM WINDOWS APPLICATION ADMINISTRATOR) Tissue (Polyp(s), colon/colorectal, esophageal, gastric) 07/12/2023 8:28 AM WINDOWS APPLICATION ADMINISTRATOR Narrative PATHOLOGY [facility] - 07/13/2023 7:21 PM WINDOWS APPLICATION ADMINISTRATOR EPIC results best viewed via link to PDF [facility] Surgical Pathology [place] [address] Note to Patients: This report may contain a detailed description of human tissue sent by a health care provider to the laboratory for pathologic evaluation. The content of this report is essential for diagnosis and may provide important critical findings. This information may be unfamiliar to patients to review without a medical professional present. It is advised that the patient review this report in the presence of a health care provider who can answer questions and explain the details. SURGICAL PATHOLOGY REPORT FINAL WITH ADDENDUM Patient Name: ?? JOSY POOLE Gender: ??F : ??1960 (Age: 63) Address: ??[address], [place] ??[address] Hospital #: ??[id number] Taken:07/12/2023 Received:07/12/2023 Reported: 07/13/2023 Patient Type: [facility] EP SAME Client ?[facility] Service: Gastro Location: Physician(s): ??Jonathan العراقي M.D. Diagnosis: Stomach, cardia, polyp, biopsy: ? - Gastric hyperplastic polyp with erosion and cautery artifacts. ? - No definitive evidence of intestinal metaplasia or dysplasia. ? - Results of Helicobacter pylori immunostain will be reported in an addendum. ?? chxm/07/13/2023 15:41 By this signature, I attest that the above diagnosis is based upon my personal examination of the slides(and/or other material indicated in the diagnosis). Mauricio Masterson MD, PHD Report Electronically Reviewed and Signed Out By ??Mauricio Masterson MD, PHD 07/13/2023 19:21:54 Microscopic Description and Comment: Microscopic examination substantiates the above cited diagnosis. History: The patient is a 63-year-old woman with gastritis without bleeding and gastric polyp. ??Operative procedure: ??EGD. Specimen(s) Received: A: Polyp gastric cardia Gross Description: Received in formalin, labeled with the patient? ? s identifiers and polyp gastric cardia are multiple irregular tissue fragment(s) (measuring 1.0 x 0.7 x 0.1 cm in aggregate. ??Stained with eosin). ?? Labeled A1. Jar 0. ?? cnewho/07/12/2023 09:43 PA(s): TIFFANY French, CT (ASCP)CM By this signature, I attest that the above diagnosis is based upon my personal examination of the slides(and/or other material). Addenda/Procedures Addendum Ordered:07/17/2023Status:Signed OutAddendum Complete:07/17/2023y:Mauricio Masterson MD, PHDAddendum Signed Out:07/17/2023 Addendum Comment Helicobacter pylori immunostain is negative. ?? By this signature, I attest that the above diagnosis is based upon my personal examination of the slides(and/or other material indicated in the diagnosis). Mauricio Masterson MD, PHDReport Electronically Reviewed and Signed Out By ??Mauricio Masterson MD, PHD ??07/17/2023 18:12:41 ?? Microscopic slide review and interpretation for this case was performed at [facility], Department of Surgical Pathology, [address] [facility], [place] [id number], ??[place], [place] ??[address] ?? CLIA # [id number] The performance characteristics of some immunohistochemical stains, fluorescence in-situ hybridization tests and immunophenotyping by flow cytometry cited in this report (if any) were determined by the Surgical Pathology and Flow Cytometry Departments at [facility] as part of an ongoing senior supplier quality engineer program and in compliance with federally mandated regulations drawn from the Clinical Laboratory Improvement Act of 1988 (CLIA '88). ??Some of these tests rely on the use of analyte specific reagents and are subject to specific labeling requirements by the US Food and Drug Administration. ??Such diagnostic tests may only be performed in a facility that is certified by the Department of Health and Human Services as a high complexity laboratory under CLIA '88. ??The FDA has determined that such clearance or approval is not necessary. ??This test is used for clinical purposes. ??It should not be regarded as investigational or for research. ??Nevertheless, federal rules concerning the medical use of analyte specific reagents require that the following disclaimer be attached to the report: This test was developed and its performance characteristics determined by the Surgical Pathology and Flow Cytometry Departments of [facility]. ??It has not been cleared or approved by the U. S. Food and Drug Administration. IMAGES AND SCANNED DOCUMENTS, IF INCLUDED, ONLY VIEWABLE IN PDF VERSION OF REPORT us Odilon Chester MD LAB PATHOLOGY ORDERAB LES Final Result PATHOLOGY [facility] [phone] * EGD (07/12/2023 8:15 AM WINDOWS APPLICATION ADMINISTRATOR) Anatomical Region Laterality Modality Other Narrative Procedure Note Odilon Chester MD - 07/12/2023 8:15 AM CST ENDOSCOPY LAB Patient Name: Josy Poole Procedure Date: 07/12/2023 8:15 AM Date of : 1960 Admit Type: Outpatient Age: 63 Gender: Female Attending MD: Odilon Chester M.D. Room: [facility] ENDOSCOPY ROOM 03 Note Status: Finalized Procedure: Upper GI endoscopy Indications: gastric hyperplastic polyp Providers: Odilon Chester M.D. Referring MD: Bj [...] was re-assessed for adequacy to receive sedatives. After obtaining informed consent, the endoscope was passed under direct vision. Throughout theprocedure, the patient's blood pressure, pulse, and oxygen saturations were monitored continuously. The [id number] was introduced through the mouth,and advanced to the second part of duodenum. The upperGI endoscopy was accomplished without difficulty. The patient tolerated the procedure well. Findings: The examined esophagus was normal. A single 8 mm sessile polyp with no stigmata of recent bleeding was found in the cardia. The polyp was removed with a hot snare. A small remaining edge was removed with forceps. Resection and retrieval were complete. The exam of the stomach was otherwise normal. The examined duodenum was normal. Impression: - Normal esophagus. - A single gastric polyp. Resected and retrieved. - Normal examined duodenum. Recommendation: - Await pathology results. - Repeat upper endoscopy in 1 year for surveillance based on pathology results. - Contact Information: During normal business hours - Please call [facility] Coordinator: [phone] After hours, evening, nights, weekends and holidays- Please call the hospital dairy machine operator farmworker at and ask for the GI fellow accounting manager assistant controller. Attending Participation: I personally performed the entire procedure. Electronically signed by Odilon Chester MD Odilon Chester M.D. 07/12/2023 8:36:13 AM Number of Addenda: 0 Note Initiated On: 07/12/2023 8:15 AM Odilon Chester MD ENDOSCOPY PROCEDURES Final Result documented in this encounter Visit Diagnoses Diagnosis Gastritis without bleeding, unspecified chronicity, unspecified gastritis type Gastric polyp Benign neoplasm of stomach documented in this encounter Admitting Diagnoses Diagnosis Gastritis without bleeding Gastric polyp Benign neoplasm of stomach documented in this encounter Administered Medications Inactive Administered Medications - up to 3 most recent administrations Medication Order MAR Action Action Date Dose Rate Site famotidine (PEPCID) injection 20 mg 20 mg, intravenous, Administer over 2 Minutes, Once, On Mon07/12/23 at 0745, For 1 dose, Pre-Op Given 07/12/2023 7:35 AM WINDOWS APPLICATION ADMINISTRATOR 20 mg ondansetron (ZOFRAN) injection 4 mg 4 mg, intravenous, Administer over 2 Minutes, Once, On Mon07/12/23 at 0745, For 1 dose, Pre-Op Given 07/12/2023 7:34 AM WINDOWS APPLICATION ADMINISTRATOR 4 mg ondansetron (ZOFRAN) injection 4 mg 4 mg, intravenous, Administer over 2 Minutes, Every 6 hours PRN, nausea, vomiting, Starting on Mon07/12/23 at 0711, Pre-Procedure (GI) sodium chloride 0.9% flush 0.5-20 mL 0.5-20 mL, intra-catheter, As needed, line care, Starting on Mon07/12/23 at 0711, Pre-Procedure (GI), Flush volume based on line type and size. Flush before and after each use. , Indications: FlushingIndications:Flushing sodium chloride 0.9% infusion 30 mL/hr, intravenous, Continuous, Starting on Mon07/12/23 at 0745, Pre-Procedure (GI) New Bag 07/12/2023 8:34 AM WINDOWS APPLICATION ADMINISTRATOR 30 mL/hr New Bag 07/12/2023 8:12 AM WINDOWS APPLICATION ADMINISTRATOR 30 mL/hr documented in this encounter Discontinued Medications Medication Sig Discontinue Reason Start Date End Da te omeprazole (PriLOSEC) 20 mg capsule Take 1 capsule (20 mg total) by mouth daily 06/01/2023 07/12/2023 documented as of this encounter Active and Recently Administered Medications Times are shown in WINDOWS APPLICATION ADMINISTRATOR. Scheduled Medication Order 07/10/2023 07/11/2023 07/12/2023 famotidine (PEPCID) injection 20 mg (COMPLETED) 20 mg, intravenous, Administer over 2 Minutes, Once, On Mon07/12/23 at 0745, For 1 dose, Pre-Op 0735 (Given - Provid er: Dov Escobar RN) ondansetron (ZOFRAN) injection 4 mg (COMPLETED) 4 mg, intravenous, Administer over 2 Minutes, Once, On Mon07/12/23 at 0745, For 1 dose, Pre-Op 0734 (Given - Provid er: Dov Escobar RN) Continuous Medication Order 07/10/2023 07/11/2023 07/12/2023 sodium chloride 0.9% infusion 30 mL/hr, intravenous, Continuous, Starting on Mon07/12/23 at 0745, Pre-Procedure (GI) 0812 (New Bag - Prov ider: Pham Foreman CRNA)0834 (New Bag - Provider: Pham Foreman CRNA)1435 (Due: Stopped) PRN Medication Order 07/10/2023 07/11/2023 07/12/2023 ondansetron (ZOFRAN) injection 4 mg 4 mg, intravenous, Administer over 2 Minutes, Every 6 hours PRN, nausea, vomiting, Starting on Mon07/12/23 at 0711, Pre-Procedure (GI) sodium chloride 0.9% flush 0.5-20 mL 0.5-20 mL, intra-catheter, As needed, line care, Starting on Mon07/12/23 at 0711, Pre-Procedure (GI), Flush volume based on line type and size. Flush before and after each use. , Indications: Flushing documented in this encounter Orders Medications Ordered That Ole ht Not Have Been Administered Count Last Ordered Date First Ordered Date ondansetron (ZOFRAN) injection 4 mg 1 07/12 sodium chloride 0.9% flush 0.5-20 mL 1 06/16 sodium chloride 0.9% infusion 1 07/12/2023 Discharge Count Last Ordered Date First Orde red Date DISCHARGE PATIENT 1 07/12/2023 documented in this encounter Care Teams Senior Developer Relationship Specialty Start Date End Date Bj Montaño MD PCP - General Family Medicine 04/15/22 02/19/24 Odilon Chester MD [address] [facility] [address] [place] [address] Referring Physician Gastroenterology 06/06/23 Roosevelt Thomas MD [address] [facility] [address] [place] [address] Fellow Pulmonary Disease 06/06/23 documented as of this encounter
--- OUTSIDE RECORDS SUMMARY | 2024-05-20 13:07 | XMS_ITS | Encounter Summary ---
Author Organization [facility] Healthcare Address [address] [place] [address] Care Team Providers Care Watermelon Harvesting Supervisor Name Role Phone Bj Montaño MD Primary Care Provider [phone] Odilon Chester MD Unavailable [phone] Roosevelt Thomas MD Unavailable [phone] Reason for Visit * Auth/Cert (Routine) Specialty Diagnoses / Procedures Referred By Sisi de león Referred To Contact Diagnoses Gastritis without bleeding, unspecified chronicity, unspecified gastritis type Gastric polyp Gastritis without bleeding, unspecified chronicity, unspecified gastritis type [K29.70] Gastric polyp [K31.7] Procedures [place] ESOPHAGOGASTRODUODENOSCOPY TRANSORAL DIAGNOSTIC ESOPHAGOGASTRODUODENOSCOPY Referral ID Status Reason Start Date Expiration Date Visits Re quested Visits Authorized [id number] 1 1 Encounter Details Date Type Department Care Team (Latest Contact Info) Description 07/12/2023 8:00 AM CAR AND YARD SUPERVISOR - 07/12/2023 8:30 AM CAR AND YARD SUPERVISOR Surgery [facility] Endoscopy [address] [facility] [place] [address] Odilon Chester MD [address] [facility] [address] [place] [address] ESOPHAGOGASTRODUODENOSCOPY REMOVAL SNARE Surgery Details Date/Time Status Location OR Service Patient Class Case Class Case Type Trauma Case? 07/12/2023 8:00 AM Posted [facility] ENDOSCOPY Endo 03 Gastroenterology Outpatient Elective Panel 1 Procedure LRB Anes Op Region Wound Class Comments ESOPHAGOGASTRODUODENOSCOPY REMOVAL SNARE N/A Monitor Anesthesia Care Esophagus N/A Surgeon Surgeon Role Service Panel Odilon Chester MD Primary Gastroentero logy 1 documented in this encounter Social History Tobacco [...] on file Legal Sex Female 2:22 AM CAR AND YARD SUPERVISOR Gender Identity Female 05/18/2019 7:17 PM CAR AND YARD SUPERVISOR Sexual Orientation Straight 05/18/2019 7: 17 PM CAR AND YARD SUPERVISOR documented as of this encounter Last Filed Vital Signs Vital Sign Reading Time Taken Comments Blood Pressure 123/68 07/12/2023 8:00 AM CAR AND YARD SUPERVISOR Pulse 77 07/12/2023 8:00 AM CAR AND YARD SUPERVISOR Temperature - - Respiratory Rate 20 07/12/2023 8:00 AM CAR AND YARD SUPERVISOR Oxygen Saturation 96% 07/12/2023 8:00 AM CAR AND YARD SUPERVISOR Inhaled Oxygen Concentration - - Weight - [...] CANCER EXCISION Right 1994 V-Y flap R mosque for [facility] TERATOMA EXCISION Left 1996 L SO TONSILLECTOMY AND ADENOIDECTOMY 1963 TONSILLECTOMY [...] times a day as needed for anxiety Provider, MD Channing azelaic acid 15 % gel APPLY TOPICALLY [...] planned procedure for the reasons stated above. AND YARD SUPERVISOR documented in this encounter Procedure Notes * Odilon Chester MD - 07/12/2023 8:15 AM CSTAssociated Order(s): EGD ENDOSCOPY LAB Patient Name: Josy Poole Procedure Date: 07/12/2023 8:15 AM Date of : 1960 Admit Type: Outpatient Age: 63 Gender: Female Attending MD: Odilon Chester M.D. Room: [facility] ENDOSCOPY ROOM 03 Note Status: Finalized [...] and oxygen saturations were monitored continuously. The [id number] was introduced through the mouth, and advanced [...] hours - Please call the Nurse Coordinator: [phone] After hours, evening, nights, weekends and holidays - Please call the hospital stem roller or crusher operator at and ask for the GI fellow affirmative action officer. Attending Participation: I personally performed the entire procedure. Electronically signed by Odilon Chester MD Odilon Chester M.D. 07/12/2023 8:36:13 AM Number of Addenda: 0 Note Initiated On: 07/12/2023 8:15 AM AND YARD SUPERVISOR documented in this encounter Miscellaneous Notes * Perioperative Nursing Note - Josefina Cordova, RN - 07/12/2023 10:33 AM CST 925 Discharge instructions were given to patient AND YARD SUPERVISOR * Perioperative Nursing Note - Josefina Cordova RN - 07/12/2023 9:[address] Chester at bedside to explain findings from procedure and discharge instructions to patient and patient they verbalized understanding AND YARD SUPERVISOR documented in this encounter Plan of Treatment Not on file documented as of this encounter Procedures Procedure Name Priority Date/Time Associated Diagnosis Comments SURGICAL PATHOLOGY Routine 07/12/2023 8:28 AM CAR AND YARD SUPERVISOR Gastritis without bleeding, unspecified chronicity, unspecified gastritis type Gastric polyp EGD 07/12/2023 8:15 AM CAR AND YARD SUPERVISOR ESOPHAGOGASTRODUODENOSCOPY REMOVAL SNARE 07/12/2023 8:11 AM CAR AND YARD SUPERVISOR Gastritis without bleeding, unspecified chronicity, unspecified gastritis type Gastric polyp documented in this encounter Results * Surgical pathology (07/12/2023 8:28 AM CAR AND YARD SUPERVISOR) Tissue (Polyp(s), colon/colorectal, esophageal, gastric) 07/12/2023 8:28 AM CAR AND YARD SUPERVISOR Narrative PATHOLOGY W - 07/13/2023 7:21 PM CAR AND YARD SUPERVISOR EPIC results best viewed via link to PDF [facility] [place] [address] Note to Patients: This report may contain [...] Gender: ??F : ??1960 (Age: 63) Address: ??[address] [place], [place] ??[address] Hospital #: ??[id number] Taken:07/12/2023 Received:07/12/2023 Reported: 07/13/2023 Patient Type: [facility] EP SAME [facility] Location: Physician(s): ??Jonathan العراقي M.D. Diagnosis: Stomach, cardia, polyp, biopsy: ? - Gastric hyperplastic polyp with erosion and cautery artifacts. ? - No definitive evidence of intestinal metaplasia or dysplasia. ? - Results of Helicobacter pylori immunostain will be reported in an addendum. ?? chx/07/13/2023 15:41 By this signature, I attest that [...] interpretation for this case was performed at [facility], Department of Surgical Pathology, [address] [facility], [place] [id number], ??[facility], [place] ??[address] ?? CLIA # [id number] The performance characteristics of some immunohistochemical stains, fluorescence in-situ hybridization tests and immunophenotyping by flow cytometry cited in this report (if any) were determined by the Surgical Pathology and Flow Cytometry Departments at [facility] as part of an ongoing quality control engineer program and in compliance with federally [...] Surgical Pathology and Flow Cytometry Departments of [facility]. ??It has not been cleared or approved by the U. S. Food and Drug Administration. IMAGES AND SCANNED DOCUMENTS, IF INCLUDED, ONLY VIEWABLE IN PDF VERSION OF REPORT us Odilon Chester MD LAB PATHOLOGY ORDERAB LES Final Result PATHOLOGY [facility] [phone] * EGD (07/12/2023 8:15 AM CAR AND YARD SUPERVISOR) Anatomical Region Laterality Modality Other Narrative Procedure Note Odilon Chester MD - 07/12/2023 8:15 AM CST ENDOSCOPY LAB Patient Name: Josy Poole Procedure Date: 07/12/2023 8:15 AM Date of : 1960 Admit Type: Outpatient Age: 63 Gender: Female Attending MD: Odilon Chester M.D. Room: [facility] ENDOSCOPY ROOM 03 Note Status: Finalized [...] and oxygen saturations were monitored continuously. The [id number] was introduced through the mouth,and advanced to [...] During normal business hours - [facility] [place]: [phone] After hours, evening, nights, weekends and holidays- Please call the hospital stem roller or crusher operator at and ask for the GI fellow affirmative action officer. Attending Participation: I personally performed the entire procedure. Electronically signed by Odilon Chester MD Odilon Chester M.D. 07/12/2023 8:36:13 AM Number of Addenda: 0 Note Initiated On: 07/12/2023 8:15 AM Odilon Chester MD ENDOSCOPY PROCEDURES Final Result documented in this encounter Visit Diagnoses Diagnosis Gastritis without bleeding, unspecified chronicity, unspecified gastritis type Gastric polyp Benign neoplasm of stomach Gastritis without bleeding, unspecified chronicity, unspecified gastritis [...] 1 dose, Pre-Op Given 07/12/2023 7:35 AM CAR AND YARD SUPERVISOR 20 mg ondansetron (ZOFRAN) injection 4 mg 4 mg, intravenous, Administer over 2 Minutes, Once, On Mon07/12/23 at 0745, For 1 dose, Pre-Op Given 07/12/2023 7:34 AM CAR AND YARD SUPERVISOR 4 mg ondansetron (ZOFRAN) injection 4 mg [...] Pre-Procedure (GI) New Bag 07/12/2023 8:34 AM CAR AND YARD SUPERVISOR 30 mL/hr New Bag 07/12/2023 8:12 AM CAR AND YARD SUPERVISOR 30 mL/hr documented in this encounter Discontinued Medications Medication Sig Discontinue Reason Start Date End Da te omeprazole (PriLOSEC) 20 mg capsule Take 1 capsule (20 mg total) by mouth daily 06/01/2023 07/12/2023 documented as of this encounter Active and Recently Administered Medications Times are shown in CAR AND YARD SUPERVISOR. Scheduled Medication Order 07/10/2023 07/11/2023 07/12/2023 famotidine [...] 07/12/2023 documented in this encounter Care Teams Watermelon Harvesting Supervisor Relationship Specialty Start Date End Date Bj Montaño MD PCP - General Family Medicine 04/15/22 02/19/24 Odilon Chester MD [address] [facility] [place] [address] Referring Physician Gastroenterology 06/06/23 Roosevelt Thomas MD [address] [facility] [place] [address] Fellow Pulmonary Disease 06/06/23 documented as of this encounter
--- OUTSIDE RECORDS SUMMARY | 2024-05-20 13:07 | XMS_ITS | Encounter Summary ---
Author Organization [facility] Address [address] [place] [address] Phone Care Team Providers Care Petroleum Inspector Supervisor Name Role Phone Bj Montaño MD Primary Care Provider [phone] Odilon Chester MD Unavailable [phone] Roosevelt Thomas MD Unavailable [phone] Encounter Details Date Type Department Care Team (Late st Contact Info) Description 06/20/2023 Telephone [facility] Neuro Sleep [address] [facility] 6th [address] [place] [address] Darwin Fairbanks RPSGT Social History Tobacco Use Types Packs/Day Years [...] on file Legal Sex Female 2:22 AM LIEUTENANT COLONEL Gender Identity Female 05/18/2019 7:17 PM LIEUTENANT COLONEL Sexual Orientation Straight 05/18/2019 7: 17 PM LIEUTENANT COLONEL documented as of this encounter Miscellaneous Notes * Telephone Encounter - Darwin Fairbanks RPSGT - 06/20/2023 7:56 PM CST LVM requesting call back to confirm appointment and answer any questions about the procedure. TENANT COLONEL documented in this encounter Plan of Treatment Not on file documented as of this encounter Visit Diagnoses Not on filedocumented in this encounter Care Teams Petroleum Inspector Supervisor Relationship Specialty Start Date End Date Bj Montaño MD PCP - General Family Medicine 04/15/22 02/19/24 Odilon Chester MD [address] [facility] [place] [place] [address] Referring Physician Gastroenterology 06/06/23 Roosevelt Thomas MD [address] [facility] [place] [place] [address] Fellow Pulmonary Disease 06/06/23 documented as of this encounter
--- OUTSIDE RECORDS SUMMARY | 2024-05-20 13:07 | XMS_ITS | Encounter Summary ---
Author Organization [facility] Address [address] [place] [address] Phone Care Team Providers Care Insurance Administrator Name Role Phone Adam English DO Unavailable [phone] Bj Montaño MD Primary Care Provider [phone] Reason for Visit * Reason Onset Date Comments GI pre procedure screening 07/12/2023 05/16/2023 Encounter Details Date Type Department Care Team (Late st Contact Info) Description 05/16/2023 Documentation [facility] Gastroenterology [address] [facility] 2nd [address] [place] [address] Adliia Hager LPN GI pre procedure screening 07/12/2023 Social History Tobacco Use Types Packs/Day Years [...] on file Legal Sex Female 2:22 AM BACTERIOLOGIST MEDICAL Gender Identity Female 05/18/2019 7:17 PM BACTERIOLOGIST MEDICAL Sexual Orientation Straight 05/18/2019 7: 17 PM BACTERIOLOGIST MEDICAL documented as of this encounter Progress Notes * Adilia HagerSIOBHAN - 05/16/2023 2:47 PM CST PROCEDURE Type: EGD Indication: gastritis, gastric polyp Referring Physician: Henrik Date Referred: CLINICAL ASSESSMENT [x]COVID/Flu Screening questions [x]BMI>45, Weight >350 lbs [] Patient had GI procedure/CPAP clinic/GI clinic <30 days (if Yes, no medical screening questions needed unless new clinical issues in last 30 days) Medical screening questions: BMI/Weight: NA CARDIOVASCULAR: None RESPIRATORY/LUNG: COPD/asthma- If severe (FEV1 < 50% of predicted) or continuous O2 no SC. and DON- No SC if non-compliant with CPAP RENAL/LIVER/GI: None GI: Previous COLON or EGD: Hx of Polyps, Sierra, Barretts:yes, Hx colon Polyps Colectomy w/Dr. Hodge 2018 for recurrence of diverticulitis Hx of Constipation:No Have you ever required a two day prep? No BLEEDING/CLOTTING: None NEUROLOGICAL: None ENDOCRINE: None PRIOR PROCEDURE ISSUES: None CLEANING VALIDATION CONSULTANT/: NA IMPLANTS.: None PSYCH/Behavioral Hx: No SC has limited security Notes: HTN - controlled Anxiety/depression PACEMAKER/ICD Y/N: No/NA Device info: Last documented device check: Any shocks since last cards visit (if yes must see cardiology for procedure clearance): DIALYSIS Y/N: No/NA []HD- Schedule on non-HD day, see protocol []PD- Drain PD fluid AM of procedure, if colonoscopy order AB ppx, see protocol REGULAR DIABETIC MEDS Y/N: No/NA []Yes- Discuss diabetes medication management with prescribing physician GLP DIABETIC MEDICATIONS Y/N: No/NA None Educated Patient on the need to hold Medication, and to contact their ordering MD or Jewelry Technician about bridging medication for procedure. N/A [] Yes - Letter Sent to Ordering Physician/Jewelry Technician Date sent: Hold instructions: GLP Weight Loss Medications No Educated Patient on the need to hold Medication, and to contact their ordering MD or Jewelry Technician about bridging medication for procedure. Y/N: No/NA None [] Yes - Letter Sent to Ordering Physician/Jewelry Technician Hold older Instructions: BLOOD THINNERS/ANTICOAG/ANTIPLATELET (BESIDES ASA) Medication: NONE CONTINUE ASPIRIN INFORMATION REQUESTED []Imaging: []Medical Progress Note/H&P []Medication list []Other: PATIENT OPTIMIZATION []Physician reviewing escalation: []CPAP: Date scheduled: Outcome : [] Location limitations: Scheduling Scheduling location limitations: Wind Turbine Technician needed [x] NA Language: POA [x] NA Name: Required extended education:no SPECIAL PROCEDURE INSTRUCTIONS Scheduling Notes Procedure information Date of procedure: 07/12 Time of procedure: 8AM Arrival time: 7AM Location: [facility] Proceduralist: Henrik Bunch Method of instructions: MyChart [x]Confirmation of ride/field hockey coach [x]Post anesthesia restrictions given [x]NPO Instructions: [x]Diet Instructions: [x]Take non-blood thinner prescription meds that morning [x]Bring med list, photo ID, insurance card, no valuables [x]Bring COVID vaccination card (if vaccinated) Bowel Prep Prep prescribed: NA Method of Bowel Prep (RX): NA ----- Message ----- From: Ladarius Rudolph LPN Sent: 04/21/2023 12:00 AM BACTERIOLOGIST MEDICAL To: Cristofer [facility]/Henrik Paul Subject: EGD due In Jun as 6 month follow up from Dec* Gastric polyp is inflammatory. Chronic inactive gastritis in stomach. -> pantoprazole 40 mg daily (resume), EGD 6 months ERIOLOGIST MEDICAL ERIOLOGIST MEDICAL documented in this encounter Plan of Treatment Not on file documented as of this encounter Visit Diagnoses Not on filedocumented in this encounter Care Teams Insurance Administrator Relationship Specialty Start Date End Date Bj Montaño MD PCP - General Family Medicine 04/15/22 02/19/24 Adam English DO Supervisor Cutting And Boning Gastroenterology 03/26/19 06/05/23 documented as of this encounter
--- OUTSIDE RECORDS SUMMARY | 2024-05-20 13:07 | XMS_ITS | Encounter Summary ---
Author Organization [facility] Address [address] [place] [address] Phone Care Team Providers Care Experience Planning Strategist Name Role Phone Adam English DO Unavailable [phone] Bj Montaño MD Primary Care Provider [phone] Encounter Details Date Type Department Care Team (Late st Contact Info) Description 06/01/2023 Telephone [facility] Pulmonary [address] [facility] [address] 8th [place] [address] [place] [address] Adri Pearson CMA Social History Tobacco Use Types Packs/Day Years [...] on file Legal Sex Female 2:22 AM CARBON GRINDER Gender Identity Female 05/18/2019 7:17 PM CARBON GRINDER Sexual Orientation Straight 05/18/2019 7: 17 PM CARBON GRINDER documented as of this encounter Miscellaneous Notes * Telephone Encounter - Adri Pearson CMA - 06/01/2023 10:55 AM CARBON GRINDER ----- Message from Carmella Graham sent at 05/30/2023 10:53 AM CARBON GRINDER ----- Regarding: FW: Reschedule appt Contact: ----- Message ----- From: Zina Ojeda RN Sent: 05/30/2023 9:25 AM CARBON GRINDER To: Cristofer Hernandez [address] [place] [address] Subject: FW: Reschedule appt Patient had appt and testing with Stephani today 05/30/23. Can this be rescheduled for a different Monday? Zina Alegre ----- Message ----- From: Sindy Harvey RMA Sent: 05/30/2023 9:06 AM CARBON GRINDER To: Zina Ojeda RN Subject: Reschedule appt Pt would like to reschedule her appt she canceled for today. Dione Alegre ON GRINDER documented in this encounter Plan of Treatment Not on file documented as of this encounter Visit Diagnoses Not on filedocumented in this encounter Care Teams Experience Planning Strategist Relationship Specialty Start Date End Date Bj Montaño MD PCP - General Family Medicine 04/15/22 02/19/24 Adam English DO Nuclear Chemistry Technician Gastroenterology 03/26/19 06/05/23 documented as of this encounter
--- OUTSIDE RECORDS SUMMARY | 2024-05-20 13:07 | XMS_ITS | Encounter Summary ---
Author Organization [facility] Address [address] [facility] [address] [place] [address] Phone Care Team Providers Care Welt Rander Name Role Phone Adam English DO Unavailable [phone] Bj Montaño MD Primary Care Provider [phone] Encounter Details Date Type Department Care Team (Late st Contact Info) Description 03/23/[address] [facility] Neuro Sleep [address] [facility] [address] [place] [address] Peace Escobar NP [address] [facility] [address] [place] [address] Social History Tobacco Use Types Packs/Day Years [...] on file Legal Sex Female 2:22 AM COMPRESSOR TECHNICIAN Gender Identity Female 05/18/2019 7:17 PM COMPRESSOR TECHNICIAN Sexual Orientation Straight 05/18/2019 7: 17 PM COMPRESSOR TECHNICIAN documented as of this encounter Miscellaneous Notes * Telephone Encounter - Dorothy Irby CMA - 03/23/2023 3:46 PM CST Called pt. There was no answer left vm and sent My[employer] message. RESSOR TECHNICIAN * Telephone Encounter - Dorothy Irby CMA - 03/23/2023 3:46 PM CST ----- Message from Peace Escobar NP sent at 03/23/2023 3:35 PM COMPRESSOR TECHNICIAN ----- Pls let pt know her home study was inconclusive for sleep apnea. However, we had poor airflow signal the whole time. SO, we can either repeat the home study or she can come in to the lab for an overnight sleep study here. Does she have a preference? Thanks! Peace ----- Message ----- From: Henry Freitas MD Sent: 03/21/2023 4:13 PM COMPRESSOR TECHNICIAN To: Peace Escobar NP HSAT was negative, but limited by poor airflow signal the entire recording. Recommend either repeat home testing or in lab PSG. I did not contact patient with results. Henry Freitas M.D., [facility] Professor of Neurology [facility] Diplomate, [place] Board of Psychiatry and Neurology with added Qualifications in Sleep Medicine RESSOR TECHNICIAN documented in this encounter Plan of Treatment Not on file documented as of this encounter Visit Diagnoses Not on filedocumented in this encounter Care Teams Welt Rander Relationship Specialty Start Date End Date Bj Montaño MD PCP - General Family Medicine 04/15/22 02/19/24 Adam English DO Veneer Drier Feeder Gastroenterology 03/26/19 06/05/23 documented as of this encounter
--- OUTSIDE RECORDS SUMMARY | 2024-05-20 13:07 | XMS_ITS | Encounter Summary ---
Author Organization [facility] Address [address] [place] [address] Phone Care Team Providers Care Marketing Information Analyst Name Role Phone Adam English DO Unavailable [phone] Bj Montaño MD Primary Care Provider [phone] Reason for Referral * Sleep Medicine (Routine) - Closed Specialty Diagnoses / Procedures Referred By Contetta t Referred To Contact Diagnoses Snoring Morbid obesity (HCC) Essential hypertension Procedures Portable/Home Sleep Study Peace Escobar NP Phone: tel: fax: [facility] (All Locations) Referral ID Status Reason Start Date Expiration Date Visits Re quested Visits Authorized [id number] Closed 02/23/2023 04/23/2023 1 1 Reason for Visit * Reason Comments Consult * Consultation (Routine) - Closed Specialty Diagnoses / Procedures Referred By Contetta t Referred To Contact Sleep Medicine Diagnoses DON (obstructive sleep apnea) Roosevelt Thomas MD [address] [place] [address] Phone: tel: fax: [facility] (All Locations) Referral ID Status Reason Start Date Expiration Date V isits Requested Visits Authorized [id number] Closed Specialty Services Required 11/24/2022 12/24/2023 1 1 Encounter Details Date Type Department Care Team (Late st Contact Info) Description 02/08/2023 10:30 AM CDT Office Visit [facility] [address] [facility] 6th [address] [place] [address] Peace Escobar NP [address] [place] [address] Snoring (Primary Dx); Morbid obesity (HCC); Essential hypertension Social History [...] on file Legal Sex Female 2:22 AM ADMITTING COORDINATOR Gender Identity Female 05/18/2019 7:17 PM ADMITTING COORDINATOR Sexual Orientation Straight 05/18/2019 7: 17 PM ADMITTING COORDINATOR documented as of this encounter Last Filed Vital Signs Vital Sign Reading Time Taken Comments Blood Pressure 121/82 02/08/2023 10:22 AM CDT Pulse 87 02/08/2023 10:22 AM CDT Temperature 37.1 ??C (98.7 ??F) 02/08/2023 10:22 AM C DT Respiratory Rate - - Oxygen Saturation 95% 02/08/2023 10:22 AM CDT Inhaled Oxygen Concentration - - Weight 135.2 kg (298 lb) 02/08/2023 10:22 AM CDT Height 177.8 cm (5' 10 ) 02/08/2023 10:22 AM CDT Body Mass Index 42.76 02/08/2023 10:22 AM CDT documented in this encounter Patient Instructions * Patient Instructions* Peace Escobar NP - 02/08/2023 10:30 AM CDT We are concerned that you may have obstructive sleep apnea.(more information about this condition below) In order to diagnose obstructive sleep apnea, we need to do further testing. This not only allows us to make sure you have this diagnosis (and not another sleep disorder), but also allows us to see how severe the condition is and helps guide which treatment may be best for you. In addition, your medical insurance requires a test to confirm a diagnosis before covering the cost of any treatment. We are recommending one (or possibly both) tests to evaluate for possible sleep apnea. Home Sleep Apnea Test (HSAT): We will arrange an appointment for you to quill picking machine operator a home sleep testing device, and then you will take it home with you to monitor your sleep. When you pick it up, we will have someone go over how to put it on and how to make sure we get the best data and information when you wear it while you sleepin your own bed. This test can help us confirm a diagnosis of obstructive sleep apnea. However, if this test comes back normal or inconclusive, we usually recommend a follow up test in our sleep center, as home sleep apnea tests can commonly miss obstructive sleep apnea. In lab, attended sleep study or polysomnography (PSG): You will come in overnight at our Sleep Center (next to our clinic on this floor). A registered andtrained research technologist will get you hooked up for the study and be available for any questions or concerns you may have during the night. There is also a sleep medicine physician web applications administrator overnight for the rare instance where there are any issues that require a physician's expertise. The [facility] is accredited by the [place] [employer], which ensures that our sleep center meets all standards and safety requirements to ensure patient-centeredhigh quality care. After your sleep test, we will call you or send you a message on Trips[employer] with results and a management plan. This can take up to a week to get results. What we can find out from a sleep study: DON severity: Respiratory disturbance index (RDI) is how many times you have a blockage in your breathing per hour of sleep. Add up all the apneas + hypopneas + respiratory effort related arousals and then divide by hours of sleep. Normal breathing: RDI <5 Mild DON: RDI 5-14 Moderate DON: RDI 15-30 Severe DON: RDI >30 OBSTRUCTIVE SLEEP APNEA (DON) Obstructive sleep apnea (DON) is a common problem that affects a person???s breathing during sleep.A person with DON has times during sleep in which air cannot flow normally into the lungs. The block in airflow (obstruction) is usually caused by the collapse of the soft tissues in the back of the throat (upper airway) and tongue during sleep. Why is it important to treat: DON can cause disruption of your sleep. This can lead to many symptoms such as excessive daytime sleepiness, fatigue, headaches, poor attention or memory, having to go to the restroom at night, heartburn, and problems with your mood. It can also cause higher rates of serious medical conditions such as high blood pressure, obesity, heart arrhythmias, heart failure, stroke, and diabetes. TREATMENTS: 1st line and most effective: CPAP therapy Continuous Positive Airway Pressure This treatment involves using a machine next to your bed (CPAP machine) that will provide pressure through a mask during sleep to help you breathe better. You would get fit with a comfortable mask (it can cover your nose, go into your nose, or cover your mouth and nose) and then attach it to a machine that sits next to your bed. You would turn this on and it would then provide pressure to the back of your airway so when you are deep asleep, your snoring and sleep apnea go away. Though this may seem like it would be difficult to tolerate, most patients we prescribe this to feel it helps them sleep and sleep comfortably with it. Another treatment is an oral appliance (mouth guard) to help treat your sleep apnea. This is a device that is custom fit by a dentist that you place in your mouth while you sleep. It works by moving the lower jaw forward during sleep, and opening up the airway in the back of your throat. Oral appliances are typically effective if you have mild to moderate obstructive sleep apnea, but is not usually a good treatment for severe obstructive sleep apnea. Other Recommendations to help with sleep apnea: 1. Weight loss 2. Treating Allergy Symptoms (sinus and nasal congestion) 3. Avoiding sleeping on your back Read more at: www.sleepeducation.org or www.sleepapnea.org Videos Online to Enjoy: 1. Sampson O???Pola sleep apnea (5 min) https://www.Revizer.com/watch?v=5MecPiTm2aO 2. [facility] - Sleep Apnea Treatment (13 min) https://www.youtube.com/watch?v=nKdEbosOlII Tips for Healthy Sleep: The CDC and the [place] [employer] recommend adults get at least 7 hours of sleep per a day for optimal health. -Keep a consistent sleep schedule. Try and go to bed and get up at the same time every day, even onweekends or during vacations. -Establish a relaxing bedtime routine and avoid things that can make you stressed or excited beforebedtime. -Avoid using your smart phone, ipads, tablets, or other electronic devices in bed or close to bedtime (stop using them at least 30 minutes before going to sleep). The light from these devices can disrupt your sleep. -Make your bedroom quiet and relaxing. Keep the room at a comfortable, cool temperature. -Don???t eat a large meal before bedtime. If you are hungry at night, eat a light, healthy snack. -Avoid consuming caffeine in the late afternoon or evening. -Avoid consuming alcohol or smoking cigarettes before bedtime. For more information, please visit sleepeducation.com or cdc.gov/sleep documented in this encounter Progress Notes * Peace Escobar NP - 02/08/2023 10:30 AM CDT Patient Name: JOSY POOLE Medical Record Number (MRN): [id number] Date of (): 1960 Encounter Date: 02/08/2023 [facility] Chief Complaint Josy Poole is a 63 y.o. female seen today for consultation regarding DON. Referring provider: Roosevelt Thomas MD HPI 63 y.o. patient with history of anxiety, depression, hypertension, GERD, NAFLD, COVID infection 06/2022, recurrent sinus infections, diverticulitis s/p colectomy, seasonal allergies who presents for evaluation of snoring. She was referred to the [facility] by her ludlow machine operator for DON evaluation. Her STOP-BANG score was [...] Use of tablet/phone/TV at night before bed:No Colliers sleepiness scale today is 6/24, which is [...] use. Do not swallow. 1 each 3 cetirizine (ZyrTEC) 10 mg tablet Take 1 tablet (10 mg total) by mouth as needed for allergies cholecalciferol (Vitamin D3) 2000 unit capsule 1 capsule (2,000 Units total) losartan-hydroCHLOROthiazide (HYZAAR) 50-12.5 mg per tablet multivitamin capsule Take 1 capsule by mouth daily pantoprazole DR (PROTONIX) 40 mg EC tablet Take 1 tablet (40 mg total) by mouth daily 30 tablet 2 psyllium husk (METAMUCIL ORAL) Take 6 Caplet [...] removed from R anterior chest SINUS SURGERY 1985 SKIN CANCER EXCISION Right 1994 V-Y flap R confucianism for BCCa TERATOMA EXCISION Left 1995 L SO TONSILLECTOMY AND ADENOIDECTOMY 1963 TONSILLECTOMY AND ADENOIDECTOMY 196 Family History Problem Relation Age of Onset Colon cancer Mother Hypertension Mother Gallbladder disease Mother Cancer Mother Depression Mother Gallbladder disease Father Diverticulosis Father Heart attack Father 71 fatal day following [facility] Diverticulosis Brother Diabetes Maternal Grandmother Malig Hyperthermia Neg Hx Anesthesia problems Neg Hx Sudden Cardiac Neg Hx Stroke Neg Hx Bleeding Disorder Neg Hx Clotting disorder Neg Hx Social History Education: associates degree 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 Vital Signs Vitals: 02/08/23 1022 BP: 121/82 BP Location: Right arm Patient Position: Sitting Pulse: 87 Temp: 37.1 ??C (98.7 ??F) SpO2: 95% Weight: 135.2 kg (298 lb) Height: 177.8 cm (5' 10 ) Body mass index is 42.76 kg/m??. Neck Circumference (in): 19 in. Physical Exam GENERAL EXAM: General: Well developed, well nourished, in no acute distress. HEENT: Normal conjunctivae/sclerae. Tonsils surgically absent. Mallampati class 3-4. +wide neck..PDICTATION Cardiovasc: Regular rate and rhythm; there are no murmurs, gallops or rubs. Pulmonary: Lungs are clear to auscultation bilaterally. Extremities: No clubbing, no cyanosis. No edema. Integementry System: Facial skin no irritation or breakouts, skin warm and dry, no rash. NEUROLOGIC EXAM: Mental Status: Alert, oriented, normal spontaneous fluent speech with full comprehension. Cranial Nerves: PERRL, extraocular movements full and conjugate, face symmetric, palate rise and tongue protrusion symmetric. Motor: Normal bulk and tone. Normal fine finger movements. No tremor. Coordination and Gait: Normal stance and gait. Assessment Diagnosis Plan 1. Snoring Ambulatory referral to Sleep Medicine Portable/Home Sleep Study 2. Morbid obesity (HCC) Portable/Home Sleep Study 3. Essential hypertension Portable/Home Sleep Study 63 y.o. female with with history of anxiety, depression, hypertension, GERD, NAFLD, COVID infection/2022, recurrent sinus infections, diverticulitis s/p colectomy, seasonal allergies who has symptoms suggestive of obstructive sleep apnea including snoring. Exam is notable for obesity with BMI>30, a wide neck, and a narrow airway and post-menopausal status which place her at higher risk for DON. I discussed the possible diagnosis of obstructive sleep apnea with the patient. We discussed how untreated DON can cause unrefreshing sleep and excessive daytime sleepiness. We discussed risks of untreated sleep apnea including its association with hypertension, glucose control, stroke, cardiovascular events, cardiac arrhythmias, and motor vehicle accidents. We discussed diagnostic strategies as well as possible treatment options including CPAP and oral appliances. Weight loss and sometimes avoiding supine sleep may also help treat the condition. She is amenable to evaluation and treatment for DON. Plan Home sleep apnea study. Will likely proceed with in-lab study if HSAT is inconclusive. Recommend weight loss with healthy diet and exercise. Avoid driving or operating heavy machinery if drowsy. Sleep hygiene practices including regular bed/rise times, avoiding caffeine prior to bedtime, limiting naps to one hour prior to 3pm and sleeping in a cool/dark room encouraged. Will plan for follow-up pending results of sleep study. Return TBD after sleep study. Orders Placed This Encounter Procedures Portable/Home Sleep Study Standing Status: Future Standing Expiration Date: 02/09/2024 Order Specific Question: Where should this exam be performed? Answer: [facility] (All Locations) [[id number]] Thank you for allowing me to participate in the care of your patient. If you have any questions, feel free to contact me. Sincerely, Peace Escobar APRN, WIRE PHOTO OPERATOR-C Sleep Medicine Center, Department of Neurology [facility] in [facility] documented in this encounter Plan of Treatment Not on file documented as of this encounter Results * PORTABLE/HOME SLEEP STUDY (03/07/2023 10:00 PM CDT) Narrative Henry Freitas MD - 03/07/2023 10:00 PM CDT Henry Freitas MD ? 03/21/2023 ??4:13 PM Portable/Home Sleep Study Date/Time: 03/07/2023 10:00 PM Performed by: Henry Freitas MD Authorized by: Peace Escobar NP ?? us Peace Escobar NP SLEEP CENTER ORDERABLES F inal Result documented in this encounter Visit Diagnoses Diagnosis Snoring- Primary Other dyspnea and respiratory abnormality Morbid obesity (HCC) Morbid obesity Essential hypertension Unspecified essential hypertension Disturbance in sleep behavior- Primary Unspecified sleep disturbance Snoring Other dyspnea and respiratory abnormality Morbid obesity (HCC) Morbid obesity Essential hypertension Unspecified essential hypertension documented in this encounter Discontinued Medications Medication Sig Discontinue Reason Start Date End Da te sucralfate (CARAFATE) suspension 1 gram/10 mL Have not started yet has to quill picking machine operator script 11/23/2022 02/08/2023 documented as of this encounter Historical Medications * This list may reflect changes made after this encounter. cholecalciferol (Vitamin D3) 2000 unit capsule 1 capsule (2,000 Units total) multivitamin capsule Take 1 capsule by mouth daily 06/06/2023 added in this encounter Orders Outpatient Referral Count Last Ordered Date Fir st Ordered Date AMB REFERRAL TO SLEEP MEDICINE 1 02/08/2023 documented in this encounter Care Teams Marketing Information Analyst Relationship Specialty Start Date End Date Bj Montaño MD PCP - General Family Medicine 04/15/22 02/19/24 Adam English DO Melter Operator Gastroenterology 03/26/19 06/05/23 documented as of this encounter
--- OUTSIDE RECORDS SUMMARY | 2024-05-20 13:07 | XMS_ITS | Encounter Summary ---
Author Organization [facility] Address [address] [place] [address] Phone Care Team Providers Care Emergency Medical Dispatcher Name Role Phone Bj Montaño MD Primary Care Provider [phone] Odilon Chester MD Unavailable [phone] Roosevelt Thomas MD Unavailable Encounter Details Date Type Department Care Team (Late st Contact Info) Description 06/27/2023 Telephone [facility] Sleep [address] [facility] [address] [facility] 6th [address] [place] [address] Cici Cowan MA Social History [...] on file Legal Sex Female 2:22 AM SPOOL MAKER Gender Identity Female 05/18/2019 7:17 PM SPOOL MAKER Sexual Orientation Straight 05/18/2019 7: 17 PM SPOOL MAKER documented as of this encounter Miscellaneous Notes * Telephone Encounter - Cici Cowan MA - 06/27/2023 11:48 AM CST Message sent to scheduling. L MAKER * Telephone Encounter - Cici Cowan MA - 06/27/2023 11:48 AM CST ----- Message from Jean Andrea MD sent at 06/27/2023 11:35 AM SPOOL MAKER ----- Regarding: follow up Please schedule follow up for compliance data in 3 months with anyone available. Jean Andrea MD L MAKER documented in this encounter Plan of Treatment Not on file documented as of this encounter Visit Diagnoses Not on filedocumented in this encounter Care Teams Emergency Medical Dispatcher Relationship Specialty Start Date End Date Bj Montaño MD PCP - General Family Medicine 04/15/22 02/19/24 Odilon Chester MD [address] [facility] [place] [address] Referring Physician Gastroenterology 06/06/23 Roosevelt Thomas MD [address] [facility] [place] [address] Fellow Pulmonary Disease 06/06/23 documented as of this encounter
--- OUTSIDE RECORDS SUMMARY | 2024-05-20 13:07 | XMS_ITS | Encounter Summary ---
Author Organization [facility] Address [address] [place] [address] Phone Care Team Providers Care Electron Beam Welding Machine Operator Name Role Phone Bj Montaño MD Primary Care Provider [phone] Odilno Chester MD Unavailable [phone] Roosevelt Thomas MD Unavailable [phone] Reason for Referral * Procedure (Routine) - Authorized Specialty Diagnoses / Procedures Referred By Contac t Referred To Contact Diagnoses Dyspnea on exertion Procedures Pulmonary Function Test -[facility] PFT [facility]- CAM-8D; Meth Challenge Stephani James NP [address] [place] [address] Phone: tel: fax: [facility] (All Locations) Referral ID Status Reason Start Date Expiration Date V isits Requested Visits Authorized [id number] Authorized 12/20/2023 01/18/2025 99 99 NESS STRATEGY MANAGER * Procedure (Routine) - Pending Review Specialty Diagnoses / Procedures Referred By Contac t Referred To Contact Diagnoses Dyspnea on exertion Procedures Pulmonary Function Test -[facility]- CAM-8D; Spirometry Stephani James NP [address] [place] [address] Phone: tel: fax: Referral ID Status Reason Start Date Expiration Date V isits Requested Visits Authorized [id number] Pending Review 06/06/2023 07/05/2024 1 1 NESS STRATEGY MANAGER * Procedure (Routine) - Pending Review Specialty Diagnoses / Procedures Referred By Contac t Referred To Contact Diagnoses Dyspnea on exertion Procedures Pulmonary Function Test -[facility] Adult PFT Lab- CAM-8D; Spirometry, Meth Challenge Stephani James NP [address] [place] [address] Phone: tel: fax: Referral ID Status Reason Start Date Expiration Date V isits Requested Visits Authorized [id number] Pending Review 06/06/2023 07/05/2024 1 1 NESS STRATEGY MANAGER Encounter Details Date Type Department Care Team (Late st Contact Info) Description 06/06/2023 9:30 AM BUSINESS STRATEGY MANAGER Office Visit [facility] Pulmonary [address] [facility] Advanced [facility] 8th [place] [address] [place] [address] Stephani James NP [address] [place] [address] Dyspnea on exertion (Primary Dx); Immunization counseling; Ankle edema; Sinus congestion Social History Tobacco Use Types Packs/Day Years [...] on file Legal Sex Female 2:22 AM BUSINESS STRATEGY MANAGER Gender Identity Female 05/18/2019 7:17 PM BUSINESS STRATEGY MANAGER Sexual Orientation Straight 05/18/2019 7: 17 PM BUSINESS STRATEGY MANAGER documented as of this encounter Last Filed Vital Signs Vital Sign Reading Time Taken Comments Blood Pressure 141/76 06/06/2023 9:06 AM BUSINESS STRATEGY MANAGER Pulse 92 06/06/2023 9:06 AM BUSINESS STRATEGY MANAGER Temperature 36.8 ??C (98.2 ??F) 06/06/2023 9:06 AM CS T Respiratory Rate 18 06/06/2023 9:06 AM BUSINESS STRATEGY MANAGER Oxygen Saturation 96% 06/06/2023 9:06 AM BUSINESS STRATEGY MANAGER Inhaled Oxygen Concentration - - Weight 133.8 kg (295 lb) 06/06/2023 9:06 AM BUSINESS STRATEGY MANAGER Height 177.8 cm (5' 10 ) 06/06/2023 9:06 AM BUSINESS STRATEGY MANAGER Body Mass Index 42.33 06/06/2023 9:06 AM BUSINESS STRATEGY MANAGER documented in this encounter Progress Notes * Stephani James, GEORGETTE - 06/06/2023 9:30 AM CST [facility], PULMONARY MEDIC[facility], [address] [place] [address], 8TH FLOOR, [facility], [address] [place], [place] [id number] PATIENT NAME: Josy Fiore : 1960 PETER: 06/06/2023 PROBLEM LIST: 1. COVID 06/2022 2. BMI 42 3. Anxiety, depression 4. Hypertension 5. GERD 6. NAFLD 7. Recurrent sinus infections, status post sinus surgery during childhood 8. Diverticulitis s/p colectomy 9. Seasonal allergies INTERVAL HISTORY: Josy Fiore is a 63 y.o. female patient of Dr. Thomas with hx COVID, arthritis, diverticulitis, HTN, NAFLD, migraines returns for follow-up today. She was last seen in the clinic on 11/24/2022. At that time, the patient noted occasional wheezing, occasional shortness of breath when climbing stairs, occasional left rib pain since having COVID in Jul 07 with slow improvement. In the mornings, she reports sensations of tightness and wheezing. Prior to COVID infection, she was able to walk 1 hour without stopping; or 3-4 flights. Post COVID she could walk 1 hour without stopping at a slower pace; or 2-3 flights. Today Josy is recovering from upper respiratory symptoms that started on Apr 30. She has been COVID negative from home testing. She went to her PCP and was prescribed doxycycline 100 mg for 10 days and prednisone 50 mg for 5 days. She still has some residual sinus congestion, drainage, mild dry cough, and shortness of breath on exertion. She had a migraine yesterday. She has been taking zyrtec, using sinus rinses, gargling, and using a humidifier. She is feeling much better overall. She reports sensitivity to smells and notes nasal drainage and cough with strong odors, she has never had a methylcholine challenge. She will have a repeat overnight sleep study on 06/26/23. Her initial home sleep study was inconclusive. She will also have an EGD 07/11 at [facility] and was recently prescribed omeprazole 20 mg for GERD. She denies fevers, chills, sore throat, chest pain, nausea. 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 She is able to walk further than before without stoppingor fatigue. She is using Symbicort PRN, and probably only 5 times total. ALLERGIES: Enoxaparin, Penicillins, Inapsine (Droperidol) MEDICATIONS: predniSONE (DELTASONE) 50 mg tablet ALPRAZolam (XANAX) 0.25 mg tablet Take 1 tablet by mouth 3 times a day as needed azelaic acid 15 % gel APPLY TO THE AFFECTED AREA TWICE DAILY budesonide-formoteroL (SYMBICORT) 160-4.5 Inhale 2 puffs 2 (two) times a day cetirizine (ZyrTEC) 10 mg tablet Take 1 tablet (10 mg total) by mouth as needed cholecalciferol (Vitamin D3) 2000 unit capsule 1 capsule (2,000 Units total) losartan-hydroCHLOROthiazide (HYZAAR) tablet omeprazole (PriLOSEC) 20 mg capsule Take 1 capsule (20 mg total) by mouth daily psyllium husk (METAMUCIL ORAL) Take 6 Caplet by mouth every morning 6 caps am soy isofla/blk cohosh/mag bark (ESTROVEN) Take by mouth Unsure med dosage every day hs SUMAtriptan (IMITREX) 100 mg tablet venlafaxine 225 mg tablet tablet IMMUNIZATIONS: Recommend Tdap, RSV, Pneumococcal Review of Systems: All systems are reviewed and negative except as above in Interval History. Objective VITALS: 141/76; P 92; RR 18; 98.2F; 96%; 295 pounds; 5'10 BMI 42.3 Wt Readings from Last 3 Encounters: 06/06/23 133.8 kg (295 lb) 02/08/23 135.2 kg (298 lb) 01/04/23 132 kg (291 lb) Physical Exam: General: Cooperative female sitting in no acute distress. HEENT: Normocephalic, atraumatic. Neck: No adenopathy. Trachea midline. Chest: Symmetric expansion. Lungs: Nonlabored breathing. Clear to auscultation bilaterally with no wheezes, rhonchi, or rales. Heart: Regular rate and rhythm. S1, S2. No murmur. Abdomen: Normoactive. Extremities: Ankle edema Neurologic: Grossly nonfocal. Alert and oriented x3. Skin: Warm and dry. No rash on exposed skin. Musculoskeletal: No obvious joint deformity. Moves all extremities. Psychiatric: Euthymic. PULMONARY FUNCTIONS TESTING DATA: DATA REVIEW: Spirometry: date FVC (L), % FEV1 (L), % FEV1/FVC (%) 06/06/2023 3.37, 91% 2.72, 96% 81% 11/24/2022 3.48, 93% 2.78, 96% 80% IMPRESSION & PLAN Josy Fiore is a pleasant 63 y.o. female with pmh COVID, arthritis, diverticulitis, HTN, NAFLD, migraines. 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 She is using Symbicort prn but rarely needs it. She is recovering from an URI from April, completed a course of doxycycline and prednisone and is feeling better. PFTs are stable. She reports sensitivity to smells and notes nasal drainage and cough with strong odors, she has never had a methylcholine challenge. Recommend Tdap, RSV, Pneumococcal Continue Symbicort p.r.n. Continue nasal rinse and gargling as you find helpful for sinus congestion. Sleep Medicine for evaluation of DON 06/26/23 Consider referral to Allergy for reactive airway disease. For ankle edema, elevate legs when resting. RTC in 6 months, sprio, methylcholine challenge to r/o asthma Physician Discussion: Patient's questions and concerns were discussed and answered. Patient will return to clinic in 6 months for follow-up unless more immediate concerns present. I have seen and examined the patient. My total encounter time on 06/06/2023 was 35 minutes which was spent in the activities documented in the note. This includes time spent prior to the visit and after the visit in direct care of the patient. This time does not include time spent in any separatelyreportable services. Stephani James, DNP, HATCHERY MANAGER, AGACNP-BC, CCRN Nurse Practitioner [facility] Department of Medicine Pulmonary and Critical Care [facility] Cosigned by Roosevelt Thomas MD at 06/19/2023 3:18 PM BUSINESS STRATEGY MANAGER NESS STRATEGY MANAGER NESS STRATEGY MANAGER documented in this encounter Plan of Treatment Scheduled Orders Name Type Priority Associated Diagnoses Orde r Schedule Pulmonary Function Test -[facility]FT [facility]- CAM-8D; Spirometry, Meth Challenge PFT Routine Dyspnea on exertion Expected: 12/05/2023, Expires: 06/06/2024 Pulmonary Function Test -[facility]- CAM-8D; Spirometry PFT Routine Dyspnea on exertion Expected: 12/05/2023, Expires: 06/06/2024 documented as of this encounter Results * Pulmonary Function Test - (12/29/2023 10:38 AM CDT) FVC PRE 3.45 L [facility] FVC %PRE PRED 94 % [facility] FVC POST 3.11 L [facility] FVC %POST PRED 85 % [facility] FEV1 PRE 2.79 L [facility] FEV1 %PRE PRED 99 % [facility] FEV1 POST 2.63 L [facility] FEV1 %POST PRED 93 % [facility] FEV1/FVC PRE 80.9 % [facility] FEV1/FVC POST 84.6 % [facility] Anatomical Region Laterality Modality PFT 12/29/2023 9:34 AM CDT Narrative 12/29/2023 11:21 AM CDT PFT performed at:->[facility] U Adult PFT Lab- CAM-8D Procedure:->Meth Challenge [...] and %HbO2 is age dependent. However, the [facility] Pulmonary Function Laboratory defines hypoxemia as a PaO2 <56 mm Hg or a %HbO2 <89%. Stephani James METAL POURER PFT ORDERABLES Final Result documented in this encounter Visit Diagnoses Diagnosis Dyspnea on exertion- Primary Other dyspnea and respiratory abnormality Immunization counseling Ankle edema Edema Sinus congestion Other diseases of nasal cavity and sinuses Dyspnea on exertion Other dyspnea and respiratory abnormality documented in this encounter Discontinued Medications Medication Sig Discontinue Reason Start Date End Da te multivitamin capsule Take 1 capsule by mouth daily 06/06/2023 predniSONE (DELTASONE) 50 mg tablet 05/22/2023 06/06/2023 documented as of this encounter Historical Medications * This list may reflect changes made after this encounter. Medication Sig Dispense Quantity Refills Last Filled Start D ate End Date predniSONE (DELTASONE) 50 mg tablet 05/22/2023 06/06/2023 added in this encounter Care Teams Electron Beam Welding Machine Operator Relationship Specialty Start Date End Date Bj Montaño MD PCP - General Family Medicine 04/15/22 02/19/24 Odilon Chester MD [address] [facility] [address] [place] [address] Referring Physician Gastroenterology 06/06/23 Roosevelt Thomas MD [address] [facility] [address] [place] [address] Fellow Pulmonary Disease 06/06/23 documented as of this encounter
--- OUTSIDE RECORDS SUMMARY | 2024-05-20 13:07 | XMS_ITS | Encounter Summary ---
Author Organization [facility] Address [address] [place] [address] Phone Care Team Providers Care Day Care Supervisor Name Role Phone Adam English DO Unavailable [phone] Bj Montaño MD Primary Care Provider [phone] Reason for Visit * Reason Comments Follow-up Encounter Details Date Type Department Care Team (Late st Contact Info) Description 12/14/2022 1:00 PM CDT Office Visit [facility] Ophthalmology [address] [place] [phone] Posterior vitreous detachment, both eyes (Primary Dx); Retinal tear of left eye Social History Tobacco Use Types Packs/Day Years Used Date Smoking Tobacco: Never Smokeless Tobacco: Never Alcohol Use Standard Drinks/Week Comments Not Currently 0 (1 standard drink = 0.6 oz pur e alcohol) Comments No Sex and Gender Information Value Date Recorded Sex Assigned at Not on file Legal Sex Female 2:22 AM ORACLE E BUSINESS DEVELOPER Gender Identity Female 05/18/2019 7:17 PM ORACLE E BUSINESS DEVELOPER Sexual Orientation Straight 05/18/2019 7: 17 PM ORACLE E BUSINESS DEVELOPER documented as of this encounter Progress Notes * Avelino Vásquez, OD - 12/14/2022 1:00 PM CDT Reason for Visit Today Chief Complaint Follow-up ASSESSMENT/ORDERS/PROCEDURES PERFORMED TODAY Problem List Eye/Vision Problems Posterior vitreous detachment, both eyes - Primary Current Assessment & Plan Symptoms started 10/23/22. Exam reassuring today - PVD without holes/tears/breaks on [employer] TECHNICIAN 360 Return to [facility] in 3 months for DFE OU. Retinal tear of left eye Current Assessment & Plan S/p retinopexy 07/2022 Doing well. Well barricaded The signs and symptoms of retinal detachment, tears, infection, elevated intra- ocular pressure werereviewed with the patient. Patient knows to call should they have any of the symptoms. PLAN FOR NEXT VISIT Return in about 3 months (around 03/16/2023) for [facility], DFE OU. documented in this encounter Miscellaneous Notes * Assessment & Plan Note - Avelino Vásquez, OD - 12/14/2022 2:16 PM CDT Associated Problem(s): Retinal tear of left eye S/p retinopexy 07/2022 Doing well. Well barricaded * Assessment & Plan Note - Avelino Vásquez, OD - 12/14/2022 2:16 PM CDT Associated Problem(s): Posterior vitreous detachment, both eyes Symptoms started 10/23/22. Exam reassuring today - PVD without holes/tears/breaks on [employer] TECHNICIAN 360 Return to [facility] in 3 months for DFE OU. documented in this encounter Plan of Treatment Not on file documented as of this encounter Visit Diagnoses Diagnosis Posterior vitreous detachment, both eyes- Primary Vitreous degeneration Retinal tear of left eye documented in this encounter Eye Exam Visual Acuity (Snellen - Linear) Right eye Left eye Dist cc 20/20 20/20 - Correction: Glasses Tonometry (Applanation, 1:10 PM) Right eye Left eye Pressure 14 13 Pupils Dark Light Shape React APD Right eye 5 3 Round Brisk None Left eye 5 3 Round Brisk None Visual Wheeler (Counting fingers) Right eye Left eye Full Full Extraocular Movement Right eye Left eye Full Full Neuro/Psych Oriented x3: Yes Mood/Affect: Normal Dilation Both eyes: 1.0% Mydriacyl, 2 .5% Phenylephrine @ 1:10 PM External Exam Right eye Left eye External Normal Normal Slit Lamp Exam Right eye Left eye Lids/Lashes Normal Normal Conjunctiva/Sclera White and quiet White and ciro et Cornea Clear Clear Anterior Chamber Deep and quiet Deep and quiet Iris Round Round Lens tr NS tr NS, CS Fundus Exam Right eye Left eye Posterior Vitreous PVD (Clark ring), vi t syn, Ridgely's negative PVD Disc Normal Normal C/D Ratio 0.1 0.1 Macula Normal Normal Vessels Normal Normal Periphery Small patch of latti ce temporally , Clark ring horseshoe tear at 5 oclock far periphery s/p barricaded, Laser scar no new tears or detachments Care Teams Day Care Supervisor Relationship Specialty Start Date End Date Bj Montaño MD PCP - General Family Medicine 04/15/22 02/19/24 Adam English DO [facility] 03/26/19 06/05/23 documented as of this encounter
--- OUTSIDE RECORDS SUMMARY | 2024-05-20 13:07 | XMS_ITS | Encounter Summary ---
Author Organization [facility] Address [address] [place] [address] Care Team Providers Care Superintendent Division Name Role Phone Roemojgan Adam Valencia DO Unavailable [phone] Bj Montaño MD Primary Care Provider [phone] Reason for Referral * Diagnostic Imaging (Routine) - Closed Specialty Diagnoses / Procedures Referred By Contac t Referred To Contact Diagnoses Screening mammogram, encounter for Procedures Screening Mammogram Bilateral W Stephon Screening Mammogram, Self [facility] Referral ID Status Reason Start Date Expiration Date Visits Re quested Visits Authorized [id number] Closed 02/28/2023 03/29/2024 1 1 CAL DIRECTOR/HEAD TEAM PHYSICIAN * Diagnostic Imaging (Routine) - Closed Specialty Diagnoses / Procedures Referred By Contac t Referred To Contact Diagnoses Screening mammogram, encounter for Procedures Screening Mammogram Bilateral W Stephon Screening Mammogram, Self [facility] Referral ID Status Reason Start Date Expiration Date Visits Re quested Visits Authorized [id number] Closed 02/28/2023 03/29/2024 1 1 Reason for Visit * Diagnostic Imaging (Routine) - Closed Specialty Diagnoses / Procedures Referred By Contac t Referred To Contact Diagnoses Screening mammogram, encounter for Procedures Screening Mammogram Bilateral W Stephon Screening Mammogram, Self [facility] Referral ID Status Reason Start Date Expiration Date Visits Re quested Visits Authorized [id number] Closed 02/28/2023 03/29/2024 1 1 Encounter Details Date Type Department Care Team (Latest Contact Info) Description 04/20/2023 6:52 AM MEDICAL DIRECTOR/HEAD TEAM PHYSICIAN - 04/20/2023 11:59 PM MEDICAL DIRECTOR/HEAD TEAM PHYSICIAN Hospital Encounter [facility] Advanced Medicine Breast Imaging [facility] ([facility]) [address] [place] [address] Screening mammogram, encounter for Discharge Disposition: Discharge [...] file Legal Sex Female 2:22 AM MEDICAL DIRECTOR/HEAD TEAM PHYSICIAN Gender Identity Female 05/18/2019 7:17 PM MEDICAL DIRECTOR/HEAD TEAM PHYSICIAN Sexual Orientation Straight 05/18/2019 7: 17 PM MEDICAL DIRECTOR/HEAD TEAM PHYSICIAN documented as of this encounter Medications at Time of Discharge ALPRAZolam (XANAX) 0.25 mg tablet Take 1 tablet (0.25 mg total) by mouth 3 (three) times a day as needed for anxiety azelaic acid 15 % gel APPLY TOPICALLY TO THE AFFECTED AREA TWICE DAILY 11/18/2022 budesonide-formot Ade (SYMBICORT) 160-4.5 mcg/actuation inhalerIndication s:Maintenance Therapy for Asthma Inhale 2 puffs 2 (two) times a day Rinse mouth with water after use. Do not swallow. 1 each 3 11/24/2022 cholecalciferol (Vitamin D3) 2000 unit capsule 1 capsule (2,000 Units total) losartan-hydroCHL OROthiazide (HYZAAR) 50-12.5 mg per tablet 1/2 tab am 10/14/2020 SUMAtriptan (IMITREX) 100 mg tablet cetirizine (ZyrTEC) 10 mg tablet Take 1 tablet (10 mg total) by mouth as needed for allergies 4 multivitamin capsule Take 1 capsule by mouth daily [address] (PROTONIX) 40 mg EC tabletIndications :Gastroesophageal reflux disease, unspecified whether esophagitis present Take 1 tablet (40 mg total) by mouth daily 30 tablet 2 01/09/2023 4 psyllium husk (METAMUCIL ORAL) Take 6 Caplet by mouth every morning 6 caps am 4 soy isofla/blk cohosh/mag bark (ESTROVEN ORAL) Take by mouth Unsure med dosage every day hs 4 venlafaxine 225 mg tablet extended release 24hr 24 hr tablet 05/12/2022 02 4 documented as of this encounter Discharge Disposition Disposition Code Departure Means Destination Discharge to home or self care documented in this encounter Plan of Treatment Not on file documented as of this encounter Procedures Procedure Name Priority Date/Time Associated Diagnosis Comments SCREENING MAMMOGRAM BILATERAL W STEPHON Schedule Routine, Read Routine (OP Routine) 04/20/2023 7:20 AM MEDICAL DIRECTOR/HEAD TEAM PHYSICIAN Screening mammogram, encounter for documented in this encounter Results * Screening Mammogram Bilateral W Stephon (04/20/2023 7:20 AM MEDICAL DIRECTOR/HEAD TEAM PHYSICIAN) Anatomical Region Laterality Modality Breast Bilateral Mammography Narrative 04/20/2023 9:14 AM MEDICAL DIRECTOR/HEAD TEAM PHYSICIAN Mammogram Technique: Bilateral Digital Breast Tomosynthesis, Bilateral C-view 2D Screening mammogram. ??Views obtained: ??bilateral craniocaudal and bilateral mediolateral oblique. ??Computer Aided Detection was performed. Mammogram Findings: The present examination has been compared to prior imaging studies performed at [facility] on 02/18/2020, 03/31/2021 and 04/15/2022. There are scattered areas of fibroglandular density. There is asymmetry in the outer breast on the craniocaudal view of the left breast. There is no suspicious abnormality in the right breast. Impression: Asymmetry in the left breast requires additional evaluation. A diagnostic mammogram of the left breast is recommended at this time. OVERALL FINAL ASSESSMENT: BI-RADS CATEGORY 0: ??Incomplete: ??Need additional imaging evaluation. Procedure Note Jocelyn Hernandez MD - 04/20/2023 Mammogram Technique: Bilateral Digital Breast Tomosynthesis, Bilateral C-view 2D Screening mammogram. Views obtained: bilateral craniocaudal and bilateral mediolateral oblique. Computer Aided Detection was performed. Mammogram Findings: The present examination has been compared to prior imaging studies performed at [facility] on 02/18/2020, 03/31/2021 and 04/15/2022. There are scattered areas of fibroglandular density. There is asymmetry in the outer breast on the craniocaudal view of theleft breast. There is no suspicious abnormality in the right breast. Impression: Asymmetry in the left breast requires additional evaluation. Adiagnostic mammogram of the left breast is recommended at this time. OVERALL FINAL ASSESSMENT: BI-RADS CATEGORY 0: Incomplete: Need additional imaging evaluation. us Self Screening Mammogram IMG MAMMO PROCEDURES Fi nal Result documented in this encounter Visit Diagnoses Diagnosis Screening mammogram, encounter for documented in this encounter Care Teams Superintendent Division Relationship Specialty Start Date End Date Bj Montaño MD PCP - General Family Medicine 04/15/22 02/19/24 Adam English DO Swimming Coach Gastroenterology 03/26/19 06/05/23 documented as of this encounter
--- OUTSIDE RECORDS SUMMARY | 2024-05-20 13:07 | XMS_ITS | Encounter Summary ---
Author Organization [facility] Address [address] [facility] [address] [place] [address] Phone Care Team Providers Care Regasification Plant Operator Name Role Phone Bj Montaño MD Primary Care Provider [phone] Odilon Chester MD Unavailable [phone] Roosevelt Thomas MD Unavailable [phone] Reason for Referral * Procedure (Routine) - Closed Specialty Diagnoses / Procedures Referred By Contac t Referred To Contact Diagnoses Dyspnea on exertion Procedures Pulmonary Function Test -[facility]FT [facility]- [facility]; Spirometry Roosevelt Thomas MD [address] [place] [address] Phone: tel: fax: Referral ID Status Reason Start Date Expiration Date Visits Re quested Visits Authorized [id number] Closed 11/24/2022 12/24/2023 1 1 RIALS ENGINEERING TECHNICIAN Reason for Visit * Procedure (Routine) - Closed Specialty Diagnoses / Procedures Referred By Contac sarthak Referred To Contact Diagnoses Dyspnea on exertion Procedures Pulmonary Function Test -[facility]FT [facility]- [facility]; Spirometry Roosevelt Thomas MD [address] [place] [address] Phone: tel: fax: Referral ID Status Reason Start Date Expiration Date Visits Re quested Visits Authorized [id number] Closed 11/24/2022 12/24/2023 1 1 Encounter Details Date Type Department Care Team (Latest Contact Info) Description 06/06/2023 8:45 AM MATERIALS ENGINEERING TECHNICIAN - 06/06/2023 11:59 PM MATERIALS ENGINEERING TECHNICIAN Hospital Encounter [facility] Pulmonary [address] [place] [address] Dyspnea on exertion Discharge Disposition: Discharge to [...] on file Legal Sex Female 2:22 AM MATERIALS ENGINEERING TECHNICIAN Gender Identity Female 05/18/2019 7:17 PM MATERIALS ENGINEERING TECHNICIAN Sexual Orientation Straight 05/18/2019 7: 17 PM MATERIALS ENGINEERING TECHNICIAN documented as of this encounter Medications at [...] losartan-hydroCH LOROthiazide (HYZAAR) 50-12.5 mg per tablet / tab am 10/14/2020 SUMAtriptan (IMITREX) 100 mg tablet cetirizine (ZyrTEC) 10 mg tablet Take 1 tablet (10 mg total) by mouth as needed for allergies 4 omeprazole (PriLOSEC) 20 mg capsule Take 1 capsule (20 mg total) by mouth daily 30 capsule 3 06/01/2023 4 omeprazole (PriLOSEC) 20 mg capsule Take [...] Diagnosis Comments PULMONARY FUNCTION TEST (PFT) Routine 06/06/2023 8:56 AM MATERIALS ENGINEERING TECHNICIAN Dyspnea on exertion documented in this encounter Results * Pulmonary Function Test - (06/06/2023 8:56 AM MATERIALS ENGINEERING TECHNICIAN) FVC PRE 3.37 L [facility] FVC %PRE PRED 91 % [facility] FEV1 PRE 2.72 L [facility] FEV1 %PRE PRED 96 % [facility] FEV1/FVC PRE 80.9 % [facility] Anatomical Region Laterality Modality PFT 06/06/2023 8:48 AM MATERIALS ENGINEERING TECHNICIAN Impressions 06/06/2023 9:29 AM MATERIALS ENGINEERING TECHNICIAN There is no ventilatory defect. Compared with study dated 11/24/22 , there has been no significant interval change. The attending pulmonary physician certifies a physician presence in the [facility] during the administration of aerosolized bronchodilator. The attending pulmonary physician certifies that he/she has reviewed and interpreted the graphic and numerical data of this pulmonary function study and agrees with the written final report. The lower limit of normal for PO2 and %HbO2 is age dependent. However, the [facility] Pulmonary Function Laboratory defines hypoxemia as a PO2 <55 or a %HbO2 <89. Narrative 06/06/2023 9:29 AM MATERIALS ENGINEERING TECHNICIAN Schedule with next visit PFT performed at:->[facility] Adult PFT Lab- CAM-8D Procedure:->Spirometry Pulmonary Function Test Interpretation SPIROMETRY: Spirometry is within normal limits. FLOW VOLUME LOOPS: The flow volume loop is normal Roosevelt Thomas MD PFT ORDERABLES Final Result documented in this encounter Visit Diagnoses Diagnosis Dyspnea on exertion Other dyspnea and respiratory abnormality documented in this encounter Care Teams Regasification Plant Operator Relationship Specialty Start Date End Date Bj Montaño MD PCP - General Family Medicine 04/15/22 02/19/24 Odilon Chester MD [address] [facility] [place] [address] Referring Physician Gastroenterology 06/06/23 Roosevelt Thomas MD [address] [facility] [place] [address] Fellow Pulmonary Disease 06/06/23 documented as of this encounter
--- OUTSIDE RECORDS SUMMARY | 2024-05-20 13:07 | XMS_ITS | Encounter Summary ---
Author Organization [facility] Address [address] [facility] [address] [place] [address] Phone Care Team Providers Care Door Worker Name Role Phone Aadm EnglishBarbara DO Unavailable [phone] Bj Montaño MD Primary Care Provider [phone] Reason for Referral * Sleep Medicine (Routine) - Closed Specialty Diagnoses / Procedures Referred By Sisi de león Referred To Contact Diagnoses Sleep disturbance Snoring Morbid obesity (HCC) Essential hypertension Procedures PSG-Sleep Provider Use Only Peace Escobar NP Phone: tel: fax: [facility] (All Locations) Referral ID Status Reason Start Date Expiration Date Visits Re quested Visits Authorized [id number] Closed 06/01/2023 07/30/2023 1 1 GRATION ENGINEER Encounter Details Date Type Department Care Team (Late st Contact Info) Description 03/27/2023 Orders Only [facility] Neuro Sleep [address] [place] [address] Peace Escobar NP [address] [place] [address] Sleep disturbance (Primary Dx); Snoring; Morbid obesity (HCC); Essential [...] on file Legal Sex Female 2:22 AM INTEGRATION ENGINEER Gender Identity Female 05/18/2019 7:17 PM INTEGRATION ENGINEER Sexual Orientation Straight 05/18/2019 7: 17 PM INTEGRATION ENGINEER documented as of this encounter Plan of Treatment Not on file documented as of this encounter Results * PSG (COMPLEX) (06/26/2023 10:00 PM INTEGRATION ENGINEER) Narrative Tiffanie Ruff MD - 06/26/2023 10:00 PM INTEGRATION ENGINEER Tiffanie Ruff MD ? 07/03/2023 10:48 AM PSG-Sleep Provider Use Only Date/Time: 06/26/2023 10:00 PM Performed by: Tiffanie Ruff MD Authorized by: Peace Escobar NP ?? Peace Escobar NP SLEEP CENTER ORDERABLES F inal Result documented in this encounter Visit Diagnoses Diagnosis Sleep disturbance- Primary Unspecified sleep disturbance Snoring Other dyspnea and respiratory abnormality Morbid obesity (HCC) Morbid obesity Essential hypertension Unspecified essential hypertension DON (obstructive sleep apnea)- Primary Obstructive sleep apnea (adult) (pediatric) Sleep disturbance Unspecified sleep disturbance Snoring Other dyspnea and respiratory abnormality Morbid obesity (HCC) Morbid obesity Essential hypertension Unspecified essential hypertension documented in this encounter Care Teams Door Worker Relationship Specialty Start Date End Date Bj Montaño MD PCP - General Family Medicine 04/15/22 02/19/24 Adam English DO Retail Cashier Gastroenterology 03/26/19 06/05/23 documented as of this encounter
--- OUTSIDE RECORDS SUMMARY | 2024-05-20 13:07 | XMS_ITS | Encounter Summary ---
Author Organization [facility] Healthcare Address [address] [place] [address] Care Team Providers Care House Cleaner Supervisor Name Role Phone RoeAdam ulrich DO Unavailable [phone] Bj Montaño MD Primary Care Provider [phone] Reason for Visit * Auth/Cert (Routine) Specialty Diagnoses / Procedures Referred By Sisi de león Referred To Contact Diagnoses Gastroesophageal reflux disease, unspecified whether esophagitis present Screening for colon cancer Gastroesophageal reflux disease, unspecified whether esophagitis present [K21.9] Screening for colon cancer [Z12.11] Procedures [place] COLONOSCOPY FLX DX W/COLLJ SPEC WHEN PFRMD [place] ESOPHAGOGASTRODUODENOSCOPY TRANSORAL DIAGNOSTIC ESOPHAGOGASTRODUODENOSCOPY OA/re okayed by Ad[facility] COLONOSCOPY OA/re okayed by Adilia Referral ID Status Reason Start Date Expiration Date Visits Re quested Visits Authorized [id number] 1 1 Encounter Details Date Type Department Care Team (Latest Contact Info) Description 01/04/2023 11:19 AM CDT - 01/04/2023 2:11 PM CDT Hospital Encounter [facility] [id number] [place] [address] Odilon Chester MD [address] [place] [address] Gastroesophageal reflux disease, unspecified whether esophagitis present; Screening for colon cancer Discharge Disposition: Discharge to home or self [...] on file Legal Sex Female 2:22 AM GOODWILL AMBASSADOR Gender Identity Female 05/18/2019 7:17 PM GOODWILL AMBASSADOR Sexual Orientation Straight 05/18/2019 7: 17 PM GOODWILL AMBASSADOR documented as of this encounter Last Filed Vital Signs Vital Sign Reading Time Taken Comments Blood Pressure 108/70 01/04/2023 1:45 PM CDT Pulse 62 01/04/2023 1:45 PM CDT Temperature 36.1 ??C (97 ??F) 01/04/2023 12:05 PM CDT Respiratory Rate 19 01/04/2023 1:45 PM CDT Oxygen Saturation 94% 01/04/2023 1:45 PM CDT Inhaled Oxygen Concentration - - Weight 132 kg (291 lb) 01/04/2023 12:05 PM CDT Height 177.8 cm (5' 10 ) 01/04/2023 12:05 PM CDT Body Mass Index 41.75 01/04/2023 12:05 PM CDT documented in this encounter Medications at Time [...] Do not swallow. 1 each 3 11/24/2022 losartan-hydroCH LOROthiazide (HYZAAR) 50-12.5 mg per tablet 1/2 tab am 10/14/2020 SUMAtriptan (IMITREX) 100 mg tablet cetirizine (ZyrTEC) 10 mg tablet Take 1 tablet (10 mg total) by mouth as needed for allergies [address] (PROTONIX) 40 mg EC tablet TAKE 1 TABLET BY MOUTH EVERY MORNING FOR 4 WEEKS 10/19/2022 3 psyllium husk (METAMUCIL ORAL) Take 6 Caplet by mouth every morning 6 caps am 4 soy isofla/blk cohosh/mag bark (ESTROVEN ORAL) Take by mouth Unsure med dosage every day hs 4 sucralfate (CARAFATE) suspension 1 gram/10 mL Have not started yet has to peanut picker script 11/23/2022 3 venlafaxine 225 mg tablet extended release 24hr 24 hr tablet 05/12/2022 4 documented as of this encounter Discharge Disposition Disposition Code Departure Means Destination Comment s Discharge to home or self care documented in this encounter H&P Notes * Odilon Chester MD - 01/04/2023 12:36 PM CDT Pre Endoscopy History and Physical Ja Poole is a 62 y.o. female who is here for Procedure(s): ESOPHAGOGASTRODUODENOSCOPY OA/re okayed by Adilia COLONOSCOPY OA/re okayed by Adilia The indication(s) for the procedure(s): heartburn, h/o colon polyps, h/o diverticulitis s/p sigmoidcolectomy 2018. Past Medical History: Diagnosis Date Anxiety Arthritis Right ankle and knee Cholecystitis Colorectal polyps Depression Diverticulitis GERD (gastroesophageal reflux disease) Hypertension 2 years Migraines 2000 NAFLD (nonalcoholic fatty liver disease) Ovarian cyst Rosacea Past Surgical History: Procedure Laterality Date CHOLECYSTECTOMY 2013 COLECTOMY 04/18/2019 Laparoscopic sigmoid colectomy COLONOSCOPY 10/03/2018 GALLBLADDER SURGERY 2013 HYSTERECTOMY 2000 TLH, R SO LAPAROSCOPIC OVARIAN CYSTECTOMY LESIONECTOMY Right 2009 benign skin lesion removed from R anterior chest SINUS SURGERY 1985 SKIN CANCER EXCISION Right 1994 V-Y flap R shinto for BCCa TERATOMA EXCISION Left 1995 L SO TONSILLECTOMY AND ADENOIDECTOMY 1963 TONSILLECTOMY AND ADENOIDECTOMY 196 Social History Tobacco Use Smoking status: Never Smokeless tobacco: Never Substance and Sexual Activity Drug use: Never Sexual activity: Yes Partners: Male control/protection: None Alcohol Use: Not At Risk (01/04/2023) AUDIT-C [...] Start Date End Date Taking? Authorizing Provider ALPRAZolam (XANAX) 0.25 mg tablet Take 1 tablet (0.25 mg total) by mouth 3 (three) times a day as needed for anxiety Yes Channing Lopez MD azelaic acid 15 % gel APPLY TOPICALLY TO THE AFFECTED AREA TWICE DAILY 11/18/22 Yes Channing Lopez MD cetirizine (ZyrTEC) 10 mg tablet Take 1 tablet (10 mg total) by mouth as needed for allergies Yes Channing Lopez MD losartan-hydroCHLOROthiazide (HYZAAR) 50-12.5 mg per tablet 10/14/20 Yes Channing Lopez MD pantoprazole DR (PROTONIX) 40 mg EC tablet TAKE 1 TABLET BY MOUTH EVERY MORNING FOR 4 WEEKS 10/19/22 Yes Channing Lopez MD psyllium husk (METAMUCIL ORAL) Take 6 Caplet by mouth every morning 6 caps am Yes Channing Lopez MD sodium, potassium & mag sulfates (SUPREP BOWEL KIT) 17.5-3.13-1.6 gram recon soln Use prep per instructions the day before procedure for bottle #1 & bottle #2 the AM of procedure 11/24/22 Yes Odilon Chester MD soy isofla/blk cohosh/mag bark (ESTROVEN ORAL) Take by mouth Unsure med dosage every day hs Yes Channing Lopez MD venlafaxine 225 mg tablet extended release 24hr 24 hr tablet 05/12/22 Yes Channing Lopez MD budesonide-formoteroL (SYMBICORT) 160-4.5 mcg/actuation inhaler Inhale 2 puffs 2 (two) times a day Rinse mouth with water after use. Do not swallow. 11/24/22 11/24/23 Roosevelt Thomas MD sucralfate (CARAFATE) suspension 1 gram/10 mL Have not started yet has to peanut picker script 11/23/22 Channing Lopez MD SUMAtriptan (IMITREX) 100 mg tablet ProviderChanning MD Review of Systems A pertinent, focused review of systems was completed and negative, except as noted above. OBJECTIVE: Vitals: Vitals: 01/04/23 1205 01/04/23 1215 01/04/23 1220 BP: 133/69 132/79 Pulse: 72 70 Resp: 18 16 Temp: 36.1 ??C (97 ??F) Weight: 132 kg (291 lb) Height: 177.8 cm (5' 10 ) Physical Exam: Airway: No significant abnormality. Cardiac: No significant abnormality. Pulmonary: No significant abnormality. Neurological: No significant abnormality. Gastrointestinal: No significant abnormality. ASA Score: per Anesthesia Sedation/Anesthesia Plan: per Anesthesia The risks and complications of the procedure have been explained to the patient. Informed consent was signed. Impression and plan: Will proceed with the planned procedure for the reasons stated above. documented in this encounter Procedure Notes * Odilon Chester MD - 01/04/2023 12:55 PM CDTAssociated Order(s): COLONOSCOPY ENDOSCOPY LAB Patient Name: Ja Poole Procedure Date: 01/04/2023 12:55 PM Date of : 1960 Admit Type: Outpatient Age: 62 Gender: Female Attending MD: Odilon Chester M.D. Room: [facility] ENDOSCOPY ROOM 03 Note Status: Finalized Procedure: [...] sedatives. The benefits, risks and alternatives of the procedure and sedation were discussed and informed consent was obtained. All questions were answered. Please refer to the signed informed consent document in the medical record. The scope was passed under direct vision. The [id number] was introduced through the anus and advanced to the terminal ileum. The colonoscopy was performed without difficulty. The patient tolerated the procedure well. The quality of the bowel preparation was evaluated using the BBPS ([place] Bowel Preparation Scale) with scores of: Right Colon = 3, Transverse Colon = 3 and Left Colon = 3 (entire mucosa seen well with no residual staining, small fragments of stool or opaque liquid). The total BBPS score equals 9. Findings: The terminal ileum appeared normal. Two sessile polyps were found in the ascending colon. The polyps were 6 to 8 mm in size. These polyps were removed with a cold snare. Resection and retrieval were complete. A 4 mm polyp was found in the transverse colon. The polyp was sessile. The polyp was removed with a cold snare. Resection and retrieval were complete. Two sessile polyps were found in the descending colon. The polyps were 5 to 6 mm in size. These polyps were removed with a cold snare. Resection and retrieval were complete. A few diverticula were found in the descending colon. There was evidence of a prior end-to-end colo-rectal anastomosis in the recto-sigmoid colon. This was patent and was characterized by healthy appearing mucosa. External and internal hemorrhoids were found. The hemorrhoids were small. Impression: - The examined portion of the [...] hours - Please call the Nurse Coordinator: [phone] After hours, evening, nights, weekends and holidays - Please call the hospital floater operator at and ask for the GI fellow silk conditioner. Attending Participation: I personally performed the entire procedure. Electronically signed by Odilon Chester MD Odilon Chester M.D. 01/04/2023 1:25:11 PM Number of Addenda: 0 Note Initiated On: 01/04/2023 12:55 PM * Odilon Chester MD - 01/04/2023 12:37 PM CDTAssociated Order(s): EGD ENDOSCOPY LAB Patient Name: Ja Poole Procedure Date: 01/04/2023 12:37 PM Date of : 1960 Admit Type: Outpatient Age: 62 Gender: Female Attending MD: Odilon Chester M.D. Room: [facility] ENDOSCOPY ROOM 03 Note Status: Finalized Procedure: Upper GI endoscopy Indications: Heartburn Providers: Odilon Chester M.D. Referring MD: Bj [...] and oxygen saturations were monitored continuously. The [id number] was introduced through the mouth, and advanced to the second part of duodenum. The upper GI endoscopy was accomplished without difficulty. The patient tolerated the procedure well. Findings: The examined esophagus was normal. A single 6 mm mucosal papule (nodule) was found in the cardia. Biopsies were taken with a cold forceps for histology. Mildly erythematous mucosa was found in the entire examined stomach. Biopsies were taken with a cold forceps for histology. The examined duodenum was normal. Impression: - Normal esophagus. - A single mucosal papule (nodule) found in the stomach. Biopsied. - Erythematous mucosa in the stomach. Biopsied. - Normal examined duodenum. Recommendation: - Await pathology results. - Perform a colonoscopy today. - Contact Information: During normal business hours - Please call the Nurse Coordinator: [phone] After hours, evening, nights, weekends and holidays - Please call the hospital floater operator at and ask for the GI fellow silk conditioner. Attending Participation: I personally performed the entire procedure. Electronically signed by Odilon Chester MD Odilon Chester M.D. 01/04/2023 12:54:36 PM Number of Addenda: 0 Note Initiated On: 01/04/2023 12:37 PM documented in this encounter Miscellaneous Notes * Perioperative Nursing Note - Chayo Mccain RN - 01/04/2023 2:06 PM CDT Patient discharged in stable condition with all belongings. Pt verbalized understanding of discharge instructions. documented in this encounter Plan of Treatment Not on file documented as of this encounter Procedures Procedure Name Priority Date/Time Associated Diagnosis Comments COLONOSCOPY 01/04/2023 12:55 PM CDT SURGICAL PATHOLOGY Routine 01/04/2023 12:47 PM CDT Gastroesophageal reflux disease, unspecified whether esophagitis present Screening for colon cancer EGD 01/04/2023 12:37 PM CDT COLON REMOVAL SNARE 01/04/2023 12:36 PM CDT Gastroesophageal reflux disease, unspecified whether esophagitis present Screening for colon cancer ESOPHAGOGASTRODUODENOSCOPY BIOPSY 01/04/2023 12:36 PM CDT Gastroesophageal reflux disease, unspecified whether esophagitis present Screening for colon cancer documented in this encounter Results * COLONOSCOPY (01/04/2023 12:55 PM CDT) Anatomical Region Laterality Modality Other Narrative Procedure Note Odilon Chester MD - 01/04/2023 12:55 PM CDT ENDOSCOPY LAB Patient Name: Ja Poole Procedure Date: 01/04/2023 12:55 PM Date of : 1960 Admit Type: Outpatient Age: 62 Gender: Female Attending MD: Odilon Chester M.D. Room: [facility] ENDOSCOPY ROOM 03 Note Status: Finalized Procedure: [...] The scope was passed under direct vision.The [id number] was introduced through the anusand advanced to [...] business hours - Please call theNurse Coordinator: [phone] After hours, evening, nights, weekends and holidays- Please call the hospital floater operator at and ask for the GI fellow silk conditioner. Attending Participation: I personally performed the entire procedure. Electronically signed by Odilon Chester MD Odilon Chester M.D. 01/04/2023 1:25:11 PM Number of Addenda: 0 Note Initiated On: 01/04/2023 12:55 PM Odilon Chester MD ENDOSCOPY PROCEDURES Final Result * Surgical pathology (01/04/2023 12:47 PM CDT) Tissue (Gastric/Stomach biopsy) 01/04/2023 12:47 PM CDT Tissue (Gastric/Stomach biopsy) 01/04/2023 12:50 PM CDT Tissue (Polyp(s), colon/colorectal, esophageal, gastric) 01/04/2023 1:05 PM CDT Tissue (Polyp(s), colon/colorectal, esophageal, gastric) 01/04/2023 1:09 PM CDT Tissue (Polyp(s), colon/colorectal, esophageal, gastric) 01/04/2023 1:13 PM CDT Narrative PATHOLOGY [facility] - 01/05/2023 11:47 PM CDT EPIC results best viewed via link to PDF [facility] [place] [address] Note to Patients: This report may contain [...] explain the details. SURGICAL PATHOLOGY REPORT FINAL Patient Name: ?? JA POOLE Gender: ??F : ??1960 (Age: 62) Address: ??[address] [place], [place] ??[address] [facility] #: ??[id number] Taken:01/04/2023 Received:01/04/2023 Reported: 01/05/2023 Patient Type: [facility] EP SAME Client [facility] Service: Gastro Location: Physician(s): ??Jonathan العراقي M.D. Diagnosis: A. ??Stomach, biopsy ? - Antral and oxyntic mucosa with chronic inactive gastritis ? - No intestinal metaplasia, dysplasia or malignancy ? - No Helicobacter pylori organisms seen on H&E examination ? B. ??Stomach, cardia nodule, biopsy ? - Inflammatory/hyperplastic polyp ? - No adenoma, ntestinal metaplasia, dysplasia or malignancy ? C. ??Large intestine, ascending colon polyps, biopsy ? - Fragments of tubular adenoma ? - No high-grade dysplasia or malignancy ? D. ??Large intestine, transverse colon polyp, biopsy ? - Fragments of tubular adenoma ? - No high-grade dysplasia or malignancy ? E. ??Large intestine, descending colon polyp, biopsy ? - Fragments of tubular adenoma ? - No high-grade dysplasia or malignancy vt06/22/2301/05/2023 15:17 By this signature, I attest that the above diagnosis is based upon my personal examination of the slides(and/or other material indicated in the diagnosis). Nader Salcedo MD Report Electronically Reviewed and Signed Out By ??Nader Salcedo MD 01/05/2023 23:47:48 Microscopic Description and Comment: Microscopic examination substantiates the above cited diagnosis. Britany Hill MD History: The patient is a 62-year-old woman with gastroesophageal reflux disease who also presents for screening for colon cancer. ??Operative procedure: Specimen(s) Received: A: Stomach B: Gastric cardia nodule C: Ascending colon polyps D: Transverse colon polyp E: Descending colon polyp Gross Description: Received in five formalin jars labeled with the patient's identifiers. A. ??Labeled gastric biopsy are multiple irregular tissue fragment(s) (measuring 1.4 x 0.5 x 0.1 cm in aggregate). ?? Labeled A1. Jar 0. B. ??Labeled gastric cardia nodule biopsy are multiple irregular tissue fragment(s) (measuring 0.8 x 0.3 x 0.1 cm in aggregate). ?? Labeled B1. Jar 0. C. ??Labeled ascending colon polyp snare are multiple irregular tissue fragment(s) (measuring 1.8 x 1.0 x 0.1 cm in aggregate). ?? Labeled C1. Jar 0. D. ??Labeled transverse colon polyp snare are multiple irregular tissue fragment(s) (measuring 2.6 x 0.2 x 0.1 cm in aggregate). ?? Labeled D1. Jar 0. E. ??Labeled descending colon polyp snare are two irregular tissue fragment(s) (measuring 1.6 x 0.7 x 0.1 cm in aggregate). ?? Labeled E1. Jar 0. cnewho/01/04/2023 15:06 PA(s): TIFFANY French, CT ([facility]) By this signature, I attest that the above diagnosis is based upon my personal examination of the slides(and/or other material). Addenda/Procedures Microscopic slide review and interpretation for this case was performed at [facility], Department of Surgical Pathology, [address] [facility] [address], [place] [id number], ??[place], [place] ??[address] ?? CLIA # [id number] The performance characteristics of some immunohistochemical stains, fluorescence in-situ hybridization tests and immunophenotyping by flow cytometry cited in this report (if any) were determined by the Surgical Pathology and Flow Cytometry Departments at [facility] as part of an ongoing senior quality analyst program and in compliance with federally mandated [...] Surgical Pathology and Flow Cytometry Departments of [facility]. ??It has not been cleared or approved by the U. S. Food and Drug Administration. IMAGES AND SCANNED DOCUMENTS, IF INCLUDED, ONLY VIEWABLE IN PDF VERSION OF REPORT Odilon Chester MD LAB PATHOLOGY ORDERAB LES Final Result PATHOLOGY [facility] [phone] * EGD (01/04/2023 12:37 PM CDT) Anatomical Region Laterality Modality Other Narrative Procedure Note Odilon Chester MD - 01/04/2023 12:37 PM CDT ENDOSCOPY LAB Patient Name: Ja Poole Procedure Date: 01/04/2023 12:37 PM Date of : 1960 Admit Type: Outpatient Age: 62 Gender: Female Attending MD: Odilon Chester M.D. Room: [facility] ENDOSCOPY ROOM 03 Note Status: Finalized Procedure: Upper GI endoscopy Indications: Heartburn Providers: Odilon Chester M.D. Referring MD: Bj [...] and oxygen saturations were monitored continuously. The [id number] was introduced through the mouth, and advanced to the second part of duodenum. Theupper GI endoscopy was accomplished without difficulty.The patient tolerated the procedure well. Findings: The examined esophagus was normal. A single 6 mm mucosal papule (nodule) was found in the cardia.Biopsies were taken with a cold forceps for histology. Mildly erythematous mucosa was found in the entire examined stomach. Biopsies were taken with a cold forceps for histology. The examined duodenum was normal. Impression: - Normal esophagus. - A single mucosal papule (nodule) found in the stomach. Biopsied. - Erythematous mucosa in the stomach. Biopsied. - Normal examined duodenum. Recommendation: - Await pathology results. - Perform a colonoscopy today. - Contact Information: During normal business hours - Please call theNurse Coordinator: [phone] After hours, evening, nights, weekends and holidays- Please call the hospital floater operator at and ask for the GI fellow silk conditioner. Attending Participation: I personally performed the entire procedure. Electronically signed by Odilon Chester MD Odilon Chester M.D. 01/04/2023 12:54:36 PM Number of Addenda: 0 Note Initiated On: 01/04/2023 12:37 PM Odilon Chester MD ENDOSCOPY PROCEDURES Final Result documented in this encounter Visit Diagnoses Diagnosis Gastroesophageal reflux disease, unspecified whether esophagitis present Screening for colon cancer Special screening for malignant neoplasms, colon documented in this encounter Administered Medications Inactive Administered Medications - up to 3 most recent administrations Medication Order MAR Action Action Date Dose Rate Site famotidine (PEPCID) injection 20 mg 20 mg, intravenous, Administer over 2 Minutes, Once, On Mon01/04/23 at 1230, For 1 dose, Pre-Op Given 01/04/2023 12:21 PM CDT 20 mg ondansetron (ZOFRAN) injection 4 mg 4 mg, intravenous, Administer over 2 Minutes, Once, On Mon01/04/23 at 1230, For 1 dose, Pre-Op Given 01/04/2023 12:22 PM CDT 4 mg ondansetron (ZOFRAN) injection 4 mg 4 mg, intravenous, Administer over 2 Minutes, Every 6 hours PRN, nausea, vomiting, Starting on Mon01/04/23 at 1156, Pre-Procedure (GI) sodium chloride 0.9% flush 0.5-20 mL 0.5-20 mL, intra-catheter, As needed, line care, Starting on Mon01/04/23 at 1156, Pre-Procedure (GI), Flush volume based on line type and size. Flush before and after each use. , Indications: FlushingIndications:Flushing sodium chloride 0.9% infusion 30 mL/hr, intravenous, Continuous, Starting on Mon01/04/23 at 1230, Pre-Procedure (GI) Restarted 01/04/2023 1:11 PM CDT Rate/Dose Verify 01/04/2023 12:36 PM CDT 30 mL/ hr New Bag 01/04/2023 12:20 PM CDT 30 mL/hr 30 mL/hr documented in this encounter Discontinued Medications Medication Sig Discontinue Reason Start Date End Da te sodium, potassium & mag sulfates (SUPREP BOWEL KIT) 17.5-3.13-1.6 gram recon solnIndications:Rafael l Evacuation Use prep per instructions the day before procedure for bottle #1 & bottle #2 the AM of procedure Stop Taking at Discharge 11/24/2022 01/04/2023 documented as of this encounter Active and Recently Administered Medications Times are shown in CDT. Scheduled Medication Order 01/02/2023 01/03/2023 01/04/2023 famotidine (PEPCID) injection 20 mg (COMPLETED) 20 mg, intravenous, Administer over 2 Minutes, Once, On Mon01/04/23 at 1230, For 1 dose, Pre-Op 1221 (Given - Provid er: Talon Lopes RN) ondansetron (ZOFRAN) injection 4 mg (COMPLETED) 4 mg, intravenous, Administer over 2 Minutes, Once, On Mon01/04/23 at 1230, For 1 dose, Pre-Op 1222 (Given - Provid er: Talon Lopes, ERASTO) Continuous Medication Order 01/02/2023 01/03/2023 01/04/2023 sodium chloride 0.9% infusion 30 mL/hr, intravenous, Continuous, Starting on Mon01/04/23 at 1230, Pre-Procedure (GI) 1220 (New Bag - Prov ider: Talon Lopes RN)1236 (Rate/Dose Verify - Provider: Jennifer Medrano CRNA)1310 (Paused - Provider: Jennifer Medrano CRNA - Comment: Switch to gravity)1311 (Restarted - Provider: Jennifer Medrano CRNA)1330 (Stopped - Provider: Chayo Mccain, ERASTO)1345 (Stopped - Provider: Chayo Mccain RN) PRN Medication Order 01/02/2023 01/03/2023 01/04/2023 ondansetron (ZOFRAN) injection 4 mg 4 mg, intravenous, Administer over 2 Minutes, Every 6 hours PRN, nausea, vomiting, Starting on Mon01/04/23 at 1156, Pre-Procedure (GI) sodium chloride 0.9% flush 0.5-20 mL 0.5-20 mL, intra-catheter, As needed, line care, Starting on Mon01/04/23 at 1156, Pre-Procedure (GI), Flush volume based on line type and size. Flush before and after each use. , Indications: Flushing documented in this encounter Orders Medications Ordered That Ole ht Not Have Been Administered Count Last Ordered Date First Ordered Date ondansetron (ZOFRAN) injection 4 mg 1 01/04 sodium chloride 0.9% flush 0.5-20 mL 1 12/14 Discharge Count Last Ordered Date First Orde red Date DISCHARGE PATIENT 1 01/04/2023 documented in this encounter Care Teams House Cleaner Supervisor Relationship Specialty Start Date End Date Bj Montaño MD PCP - General Family Medicine 04/15/22 02/19/24 Adam English DO Anaesthetic Technician Gastroenterology 03/26/19 06/05/23 documented as of this encounter
--- OUTSIDE RECORDS SUMMARY | 2024-05-20 13:07 | XMS_ITS | Encounter Summary ---
Author Organization Formerly [facility] Address [address] [place] [address] Care Team Providers Care Side Boss Name Role Phone RoemojganAdamBarbara DO Unavailable [phone] Bj Montaño MD Primary Care Provider [phone] Reason for Referral * Diagnostic Imaging (Routine) - Pending Review Specialty Diagnoses / Procedures Referred By Sisi de león Referred To Contact Diagnoses Abnormality of left breast on screening mammography Procedures Diagnostic Mammogram Left W [facility] [address] [place] [address] Phone: tel: fax: [facility] Referral ID Status Reason Start Date Expiration Date V isits Requested Visits Authorized [id number] Pending Review 04/21/2023 05/20/2024 1 1 ER DISTILLER OPERATOR Reason for Visit * Diagnostic Imaging (Routine) - Pending Review Specialty Diagnoses / Procedures Referred By Sisi de león Referred To Contact Diagnoses Abnormality of left breast on screening mammography Procedures Diagnostic Mammogram Left W Bj Schreiber MD [address] [place] [address] [address] [place] [address] Phone: tel: fax: [facility] Referral ID Status Reason Start Date Expiration Date V isits Requested Visits Authorized [id number] Pending Review 04/21/2023 05/20/2024 1 1 Encounter Details Date Type Department Care Team (Latest Contact Info) Description 05/05/2023 7:37 AM BADGER DISTILLER OPERATOR - 05/05/2023 11:59 PM BADGER DISTILLER OPERATOR Hospital Encounter [facility] Advanced Medicine Breast Imaging [facility] ([facility]) [address] [place] [address] Abnormality of left breast on screening mammography Discharge Disposition: Discharge to home or self [...] on file Legal Sex Female 2:22 AM BADGER DISTILLER OPERATOR Gender Identity Female 05/18/2019 7:17 PM BADGER DISTILLER OPERATOR Sexual Orientation Straight 05/18/2019 7: 17 PM BADGER DISTILLER OPERATOR documented as of this encounter Medications [...] losartan-hydroCHL OROthiazide (HYZAAR) 50-12.5 mg per tablet /2 tab am 10/14/2020 SUMAtriptan (IMITREX) 100 mg tablet cetirizine (ZyrTEC) 10 mg tablet Take 1 tablet (10 mg total) by mouth as needed for allergies 4 multivitamin capsule Take 1 capsule by mouth daily 4 omeprazole (PriLOSEC) 20 mg capsule Take 1 capsule (20 mg total) by mouth 2 (two) times a day 180 capsule 3 07/12/[address] (PROTONIX) 40 mg EC [...] Procedure Name Priority Date/Time Associated Diagnosis Comments DIAGNOSTIC MAMMOGRAM LEFT W STEPHON Schedule Routine, Read Routine (OP Routine) 05/05/2023 8:29 AM BADGER DISTILLER OPERATOR Abnormality of left breast on screening mammography documented in this encounter Results * Diagnostic Mammogram Left W Stephon (05/05/2023 8:29 AM BADGER DISTILLER OPERATOR) Anatomical Region Laterality Modality Breast Left Mammography 05/05/2023 8:34 AM BADGER DISTILLER OPERATOR Impressions 05/05/2023 9:00 AM BADGER DISTILLER OPERATOR No suspicious mammographic abnormality in the LEFT breast to suggest malignancy. ?? OVERALL FINAL ASSESSMENT: BI-RADS Category 1: Negative. RECOMMENDATION: Annual screening mammography is recommended. Dictated by: Maxim Cifuentes M.D. The radiology attending physician has personally reviewed this study, and had reviewed and/or edited this written report and agrees with it. Electronically signed by: Tawana Chester M.D. Narrative 05/05/2023 9:00 AM BADGER DISTILLER OPERATOR EXAMINATION: LEFT UNILATERAL DIGITAL DIAGNOSTIC MAMMOGRAM AND DIGITAL BREAST TOMOSYNTHESIS HISTORY: 63-year-old woman who presents for further evaluation of a screen detected asymmetry in the outer LEFT breast. COMPARISON: Multiple prior mammograms dating back to June 2011, most recent dated 04/20/2023. TECHNIQUE: ?? Full field digital mammographic views of the LEFT breast were performed, including computer aided detection (CAD) and digital breast tomosynthesis (DBT). BREAST PARENCHYMAL COMPOSITION: There are scattered areas of fibroglandular density. MAMMOGRAM FINDINGS: The asymmetry in the outer LEFT breast on the CC view at anterior depth persists on spot compression views, but is unchanged in appearance dating back to at least January 2017, without underlying suspicious mass or distortion. ??In addition, a 2nd asymmetry in the inner LEFT breast on the CC view is also unchanged dating back to January 2017 and considered benign. No suspicious mass, calcifications, or areas of architectural distortion is identified in the LEFT breast. Procedure Note '\Tawana Cintron MD - 05/05/2023 EXAMINATION: LEFT UNILATERAL DIGITAL DIAGNOSTIC MAMMOGRAM AND DIGITAL BREAST TOMOSYNTHESIS HISTORY: 63-year-old woman who presents for further evaluation of a screen detected asymmetry in the outer LEFT breast. COMPARISON: Multiple prior mammograms dating back to June 2011, most recent dated 04/20/2023. TECHNIQUE: Full field digital mammographic views of the LEFT breast were performed, including computer aided detection (CAD) and digital breast tomosynthesis (DBT). BREAST PARENCHYMAL COMPOSITION: There are scattered areas of fibroglandular density. MAMMOGRAM FINDINGS: The asymmetry in the outer LEFT breast on the CC view at anterior depth persists on spot compression views, but is unchanged in appearance dating back to at least January 2017, without underlying suspicious mass or distortion. In addition, a 2nd asymmetry in the inner LEFT breast on the CC view is also unchanged dating back to January 2017 and considered benign. No suspicious mass, calcifications, or areas of architectural distortion is identified in the LEFT breast. IMPRESSION: No suspicious mammographic abnormality in the LEFT breast to suggest malignancy. OVERALL FINAL ASSESSMENT: BI-RADS Category 1: Negative. RECOMMENDATION: Annual screening mammography is recommended. Dictated by: Maxim Cifuentes M.D. The radiology attending physician has personally reviewed this study, and had reviewed and/or edited this written report and agrees with it. Electronically signed by: Tawana Chester M.D. Bj Montaño MD IMG MAMMO PROCEDURES Final Res ult documented in this encounter Visit Diagnoses Diagnosis Abnormality of left breast on screening mammography documented in this encounter Care Teams Side Boss Relationship Specialty Start Date End Date Bj Montaño MD PCP - General Family Medicine 04/15/22 02/19/24 Adam English DO Sleep Lab Technician Gastroenterology 03/26/19 06/05/23 documented as of this encounter
--- OUTSIDE RECORDS SUMMARY | 2024-05-20 13:07 | XMS_ITS | Encounter Summary ---
Author Organization [facility] Address [address] [place] [address] Care Team Providers Care Camera Mechanic Name Role Phone RoeAdam ulrich DO Unavailable [phone] Bj Montaño MD Primary Care Provider [phone] Reason for Visit * Auth/Cert (Routine) Specialty Diagnoses / Procedures Referred By Sisi de león Referred To Contact Diagnoses Gastroesophageal reflux disease, unspecified whether esophagitis present Screening for colon cancer Gastroesophageal reflux disease, unspecified whether esophagitis present [K21.9] Screening for colon cancer [Z12.11] Procedures MN COLONOSCOPY FLX DX W/COLLJ SPEC WHEN PFRMD MN ESOPHAGOGASTRODUODENOSCOPY TRANSORAL DIAGNOSTIC ESOPHAGOGASTRODUODENOSCOPY OA/re okayed by [facility] COLONOSCOPY OA/re okayed by Adilia Referral ID Status Reason Start Date Expiration Date Visits Re quested Visits Authorized [id number] 1 1 Encounter Details Date Type Department Care Team (Latest Contact Info) Description 01/04/2023 12:30 PM CDT - 01/04/2023 1:[address] [facility] Endoscopy [id number] [address] Odilon Chester MD [address] [place] [address] ESOPHAGOGASTRODUODENOSCOPY BIOPSY Surgery Details Date/Time Status Location OR Service Patient Class Case Class Case Type Trauma Case? 01/04/2023 12:30 PM Posted [facility] Endo 03 Gastroenterology Outpatient Elective Panel 1 Procedure LRB Anes Op Region Wound Class Comments ESOPHAGOGASTRODUODENOSCOPY BIOPSY N/A Choice N/A COLON REMOVAL SNARE N/A Choice Colon N/A Surgeon Surgeon Role Service Panel Odilon [...] on file Legal Sex Female 2:22 AM CONSERVATION PLANNER Gender Identity Female 05/18/2019 7:17 PM CONSERVATION PLANNER Sexual Orientation Straight 05/18/2019 7: 17 PM CONSERVATION PLANNER documented as of this encounter Last Filed Vital Signs Vital Sign Reading Time Taken Comments Blood Pressure 116/72 01/04/2023 1:30 PM CDT Pulse 72 01/04/2023 1:30 PM CDT Temperature 36.1 ??C (97 ??F) 01/04/2023 12:05 PM CDT Respiratory Rate 12 01/04/2023 1:30 PM CDT Oxygen Saturation 97% 01/04/2023 1:30 PM CDT Inhaled Oxygen Concentration - - [...] mL Have not started yet 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 Do not swallow. 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 Room: [facility] ROOM 03 Note Status: Finalized Procedure: [...] scope was passed under direct vision. The [id number] was introduced through the anus and advanced to the terminal ileum. The colonoscopy was performed without difficulty. The patient tolerated the procedure well. The quality of the bowel preparation was evaluated using the BBPS ([place] Bowel Preparation Scale) with scores of: Right [...] hours - Please call the Nurse Coordinator: [phone] After hours, evening, nights, weekends and holidays - Please call the hospital carbonation equipment operator at and ask for the GI fellow conservation scientist. Attending Participation: I personally performed the entire [...] Female Attending MD: Odilon Chester M.D. Room: [facility] ROOM 03 Note Status: Finalized Procedure: [...] and oxygen saturations were monitored continuously. The [id number] was introduced through the mouth, and advanced [...] hours - Please call the Nurse Coordinator: [phone] After hours, evening, nights, weekends and holidays - Please call the hospital carbonation equipment operator at and ask for the GI fellow conservation scientist. Attending Participation: I personally performed the entire [...] Female Attending MD: Odilon Chester M.D. Room: [facility] 03 Note Status: Finalized Procedure: [...] The scope was passed under direct vision.The [id number] was introduced through the anusand advanced to [...] During normal business hours - Please call [facility] Coordinator: [phone] After hours, evening, nights, weekends and holidays- Please call the hospital carbonation equipment operator at and ask for the GI fellow conservation scientist. Attending Participation: I personally performed the entire [...] gastric) 01/04/2023 1:13 PM CDT Narrative PATHOLOGY [facility] - 01/05/2023 11:47 PM CDT EPIC results best viewed via link to PDF [facility] [place] [address] Note to Patients: This report may contain [...] Gender: ??F : ??1960 (Age: 62) Address: ??[address] [place] [address], [place], [place] ??[address] Hospital #: ??[id number] Taken:01/04/2023 Received:01/04/2023 Reported: 01/05/2023 Patient Type: [facility] EP SAME [facility]astro Location: Physician(s): ??Jonathan العراقي [...] ? - No high-grade dysplasia or malignancy ks201/05/2023 15:17 By this signature, I attest that [...] in aggregate). ?? Labeled E1. Jar 0. cnew01/04/2023 15:06 PA(s): Skyla Smith, BS, CT (ASCP) By this signature, I attest that the above diagnosis is based upon my personal examination of the slides(and/or other material). Addenda/Procedures Microscopic slide review and interpretation for this case was performed at [facility], Department of Surgical Pathology, [address] [facility] [address], [id number], ??[facility] [place], [place] ??[address] ?? CLIA # [id number] The performance characteristics of some immunohistochemical stains, fluorescence in-situ hybridization tests and immunophenotyping by flow cytometry cited in this report (if any) were determined by the Surgical Pathology and Flow Cytometry Departments at [facility] as part of an ongoing quality improvement engineer program and in compliance with federally [...] Surgical Pathology and Flow Cytometry Departments of [facility]. ??It has not been cleared or approved by the U. S. Food and Drug Administration. IMAGES AND SCANNED DOCUMENTS, IF INCLUDED, ONLY VIEWABLE IN PDF VERSION OF REPORT Odilon Chester MD LAB PATHOLOGY ORDERAB LES Final Result Performing Organization Address City/State/[facility] Phone Number PATHOLOGY [facility] [phone] * EGD (01/04/2023 12:37 PM CDT) Anatomical Region Laterality Modality Other Narrative Procedure Note Odilon Chester MD - 01/04/2023 12:37 PM CDT ENDOSCOPY LAB Patient Name: Ja Poole Procedure Date: 01/04/2023 12:37 PM Date of : 1960 Admit Type: Outpatient Age: 62 Gender: Female Attending MD: Odilon Chester M.D. Room: [facility] RO[facility] 03 Note Status: Finalized Procedure: [...] and oxygen saturations were monitored continuously. The [id number] was introduced through the mouth, and advanced [...] business hours - Please call theNurse Coordinator: [phone] After hours, evening, nights, weekends and holidays- Please call the hospital carbonation equipment operator at and ask for the GI fellow conservation scientist. Attending Participation: I personally performed the entire procedure. Electronically signed by Odilon Chester MD Odilon Chester M.D. 01/04/2023 12:54:36 PM Number of Addenda: 0 Note Initiated On: 01/04/2023 12:37 PM Odilon Chester MD ENDOSCOPY PROCEDURES Final Result documented in this encounter Visit Diagnoses Diagnosis Gastroesophageal reflux disease, unspecified whether esophagitis present Screening for colon cancer Special screening for malignant neoplasms, colon Gastroesophageal reflux disease, unspecified whether esophagitis present [...] Pre-Op 1222 (Given - Provid er: Talon Lopes RN) Continuous Medication Order 01/02/2023 01/03/2023 01/04/2023 sodium chloride 0.9% infusion 30 mL/hr, intravenous, Continuous, Starting on Mon01/04/23 at 1230, Pre-Procedure (GI) 1220 (New Bag - Prov ider: Talon Lopes RN)1236 (Rate/Dose Verify - Provider: Jennifer Medrano CRNA)1310 (Paused - Provider: Jennifer Medrano CRNA - Comment: Switch to gravity)1311 (Restarted - Provider: Jennifer Medrano CRNA)1330 (Stopped - Provider: Chayo Mccain RN)1345 (Stopped - Provider: Chayo Mccain RN) PRN [...] 01/04/2023 documented in this encounter Care Teams Camera Mechanic Relationship Specialty Start Date End Date Bj Montaño MD PCP - General Family Medicine 04/15/22 02/19/24 Adam English DO [place] Gastroenterology 03/26/19 06/05/23 documented as of this encounter
--- OUTSIDE RECORDS SUMMARY | 2024-05-20 13:07 | XMS_ITS | Encounter Summary ---
Author Organization [facility] Address [address] [place] [address] Phone Care Team Providers Care Critical Care Transport Nurse Name Role Phone Bj Montaño MD Primary Care Provider [phone] Odilon Chester MD Unavailable [phone] Roosevelt Thomas MD Unavailable [phone] Encounter Details Date Type Department Care Team (Late st Contact Info) Description 06/27/2023 Telephone [facility] Neuro Sleep [address] [place] [address] Jean Andrea MD [address] [facility] [address] [place], [place] [id number] Social History Tobacco Use Types Packs/Day Years [...] on file Legal Sex Female 2:22 AM HRBP Gender Identity Female 05/18/2019 7:17 PM HRBP Sexual Orientation Straight 05/18/2019 7: 17 PM HRBP documented as of this encounter Miscellaneous Notes * Telephone Encounter - Dorothy Irby CMA - 06/27/2023 2:37 PM CST Faxed DME order to [facility] with all necessary documents. * Telephone Encounter - Dorothy Irby CMA - 06/27/2023 2:37 PM CST ----- Message from Jean Andrea MD sent at 06/27/2023 11:36 AM HRBP ----- Regarding: DME Please send DME order for a new CPAP. Jean Andrea MD documented in this encounter Plan of Treatment Not on file documented as of this encounter Visit Diagnoses Not on filedocumented in this encounter Care Teams Critical Care Transport Nurse Relationship Specialty Start Date End Date Bj Montaño MD PCP - General Family Medicine 04/15/22 02/19/24 Odilon Chester MD [address] [facility] [place] [address] Referring Physician Gastroenterology 06/06/23 Roosevelt Thomas MD [address] [facility] [place] [address] Fellow Pulmonary Disease 06/06/23 documented as of this encounter
--- OUTSIDE RECORDS SUMMARY | 2024-05-20 13:07 | XMS_ITS | Encounter Summary ---
Author Organization [facility] Address [address] [place] [address] Phone Care Team Providers Care Exterior Interior Specialist Name Role Phone Bj Montaño MD Primary Care Provider [phone] Odilon Chester MD Unavailable [phone] Roosevelt Thomas MD Unavailable Encounter Details Date Type Department Care Team (Late st Contact Info) Description 06/28/2023 Telephone [facility] Scheduling [address] [place] [address] Eve Lopes Social History Tobacco Use Types Packs/Day Years [...] on file Legal Sex Female 2:22 AM DECK STEWARD Gender Identity Female 05/18/2019 7:17 PM DECK STEWARD Sexual Orientation Straight 05/18/2019 7: 17 PM DECK STEWARD documented as of this encounter Miscellaneous Notes * Telephone Encounter - Eve Lopes - 06/28/2023 3:25 PM CST ----- Message from Cici Cowan MA sent at 06/27/2023 11:48 AM DECK STEWARD ----- Please schedule follow up for compliance data in 3 months with anyone available. Thank you! STEWARD documented in this encounter Plan of Treatment Not on file documented as of this encounter Visit Diagnoses Not on filedocumented in this encounter Care Teams Exterior Interior Specialist Relationship Specialty Start Date End Date Bj Montaño MD PCP - General Family Medicine 04/15/22 02/19/24 Odilon Chester MD [address] [facility] [place] [address] Referring Physician Gastroenterology 06/06/23 Roosevelt Thomas MD [address] [facility] [place] [place] [address] Fellow Pulmonary Disease 06/06/23 documented as of this encounter
--- OUTSIDE RECORDS SUMMARY | 2024-05-20 13:07 | XMS_ITS | Encounter Summary ---
Author Organization [facility] Healthcare Address [address] [place] [address] Care Team Providers Care Electrical And Electronic Assembler Name Role Phone Bj Montaño MD Primary Care Provider Odlion Chester MD Unavailable Roosevelt Thomas MD Unavailable [phone] Reason for Visit * Auth/Cert (Routine) Specialty Diagnoses / Procedures Referred By Sisi de león Referred To Contact Diagnoses Gastritis without bleeding, unspecified chronicity, unspecified gastritis type Gastric polyp Gastritis without bleeding, unspecified chronicity, unspecified gastritis type [K29.70] Gastric polyp [K31.7] Procedures DE ESOPHAGOGASTRODUODENOSCOPY TRANSORAL DIAGNOSTIC ESOPHAGOGASTRODUODENOSCOPY Referral ID Status Reason Start Date Expiration Date Visits Re quested Visits Authorized [id number] 1 1 Encounter Details Date Type Department Care Team (Late st Contact Info) Description 07/12/2023 8:12 AM COOLER DELIVERER Anesthesia Event [facility] Endoscopy [id number] [place] [address] Jagdeep Tillman MD [address] [facility] [address] [place] [address] Anesthesia Record Procedure Summary Procedure Name Responsible Anesthesiologist Anesthesia Start Time Anesthesia Stop Time ESOPHAGOGASTRODUODENOSCOPY REMOVAL SNARE (Esophagus) Jagdeep Tillman MD 07/12/23 0812 07/12/23 0845 Events Date Time Event Comment 07/12/2023 0733 AN Equip Check 0746 0811 In Room 0812 An Start 0812 An Start Data 0815 Start Supplemental O2 0816 Patient Positioned Laterally 0818 An Induction The patient was reevaluated immediately before moderate or deep sedation use and before anesthesia induction. 0818 Quick Note Optiflow used, 20L/min preO2 then 40L/min after induction. 0820 Anesthesia Ready 0820 Proc Start 0832 Proc Fin 0838 an stop data 0839 Out of Room 0845 Handoff to RN I completed my handoff [...] Patient disposition at the time of handoff: PACU 0845 An Stop Meds Name Total propofol 70 mg propofol 374.64 mg fentaNYL PF 50 mcg Lidocaine IV 2 % 5 mL sodium chloride 0.9% infusion 1,000 mL * Agents Name O2 N2O Air * Blood No blood administrations on file. Lines, Drains, and Airways Type Details Placement Removal Peripheral IV Placement Date: 06/16 01/05; Placement Time: 0730; Catheter Size: 22 G; Orientation: Posterior, Right; Location: Hand; Site Prep: Chlorhexidine; Technique: Anatomical landmarks; Inserted by: phill torre; Insertion Attempts: 1; Patient Tolerance: Tolerated well; Removal Date: 07/12/23; Removal Time: 0915; Removal Reason: Discharge 07/12/23 0730 by Dov Escobar RN 07/12/23 0915 by Josefina Cordova RN documented in this encounter Social History [...] on file Legal Sex Female 2:22 AM COOLER DELIVERER Gender Identity Female 05/18/2019 7:17 PM COOLER DELIVERER Sexual Orientation Straight 05/18/2019 7: 17 PM COOLER DELIVERER documented as of this encounter OR Notes * Anesthesia Postprocedure Evaluation - Jagdeep Tillman MD - 07/12/2023 11:50 AM CST Patient: Josy Fiore Procedure Summary Date: 07/12/23 Room / Location: [facility] ENDOSCOPY ROOM [facility] ENDOSCOPY Anesthesia Start: 811 Anesthesia Stop: 844 Procedure: ESOPHAGOGASTRODUODENOSCOPY REMOVAL SNARE (Esophagus) Diagnosis: Gastritis without bleeding, unspecified chronicity, unspecified gastritis type Gastric polyp (Gastritis without bleeding, unspecified chronicity, unspecified gastritis type [K29.70]) (Gastric polyp [K31.7]) Providers: Odilon Chester MD Responsible Provider: Jagdeep Tillman MD Anesthesia Type: general ASA Status: 3 Anesthesia Type: general Last vitals BP 106/64 Pulse 67 Temp 36.3 ??C (97.3 ??F) Resp (!) 54 SpO2 97% Anesthesia Post Evaluation Patient location during evaluation: PACU Patient participation: complete - patient participated Level of consciousness: fully awake Pain score: 0 Pain management: adequate Airway patency: adequate Evidence of recall: no Cardiovascular status: hemodynamically stable and acceptable Respiratory status: acceptable and room air Hydration status: acceptable Pt is: normothermic Nausea/Vomiting status: none No notable events documented. ER DELIVERER * Anesthesia Preprocedure Evaluation - Jagdeep Tillman MD - 07/12/2023 7:46 AM CST Images from the original note were not included. Anesthesia Evaluation Josy Fiore is a 63 y.o. female ESOPHAGOGASTRODUODENOSCOPY (Esophagus) Pre-Op Diagnosis Codes: * Gastritis without bleeding, unspecified chronicity, unspecified gastritis type [K29.70] * Gastric polyp [K31.7] Patient Active Problem List Diagnosis Date Noted DON (obstructive sleep apnea) 07/03/2023 Dyspnea on exertion 06/06/2023 Gastritis without bleeding 04/27/2023 Gastric polyp 04/27/2023 Combined form of age-related cataract, both eyes 03/17/2023 Posterior vitreous detachment, both eyes 11/02/2022 Retinal tear of left eye 07/29/2022 Achilles tendinitis of left lower extremity 09/03/2021 Diverticulitis 03/27/2019 NAFLD (nonalcoholic fatty liver disease) 08/02/2018 Past Medical History: Diagnosis Date Anxiety Arthritis [...] CANCER EXCISION Right 1994 V-Y flap R zoroastrian for BCCa TERATOMA EXCISION Left 1995 L SO TONSILLECTOMY AND ADENOIDECTOMY 1962 TONSILLECTOMY AND ADENOIDECTOMY 1961 OB History No obstetric history on file. Allergies Allergen Reactions Enoxaparin Hives, Itching, Redness and Swelling Penicillins Swelling Inapsine [Droperidol] Anxiety irritability Taking? Last Dose Start Date End Date Provider ALPRAZolam (XANAX) 0.25 mg tablet -- -- -- Channing Lopez MD azelaic acid 15 % gel -- 11/18/22 -- Channing Lopez MD budesonide-formoteroL (SYMBICORT) 160-4.5 mcg/actuation inhaler 07/11/2023 11/24/22 11/24/23 Roosevelt Thomas MD Inhale 2 puffs 2 (two) times a day Rinse mouth with water after use. Do not swallow. cetirizine (ZyrTEC) 10 mg tablet 07/11/2023 -- -- Channing Lopez MD cholecalciferol (Vitamin D3) 2000 unit capsule 07/11/2023 -- -- Channing Lopez MD losartan-hydroCHLOROthiazide (HYZAAR) 50-12.5 mg per tablet 07/12/2023 10/14/20 -- Channing Lopez MD omeprazole (PriLOSEC) 20 mg capsule 07/11/2023 06/01/23 05/31/24 Odilon Chester MD Take 1 capsule (20 mg total) by mouth daily psyllium husk (METAMUCIL ORAL) 07/11/2023 -- -- Channing Lopez MD soy isofla/blk cohosh/mag bark (ESTROVEN ORAL) 07/11/2023 -- -- Channing Lopez MD SUMAtriptan (IMITREX) 100 mg tablet More than a month -- -- Channing Lopez MD venlafaxine 225 mg tablet extended release 24hr 24 hr tablet 07/11/2023 05/12/22 -- Channing Lopez MD Current Facility-Administered Medications: ondansetron (ZOFRAN) injection 4 mg, 4 mg, intravenous, Q6H PRN sodium chloride 0.9% flush 0.5-20 mL, 0.5-20 mL, intra-catheter, PRN sodium chloride 0.9% infusion, 30 mL/hr, intravenous, Continuous Social History Tobacco Use Smoking Status Never Smokeless Tobacco Never Alcohol Use: Not At Risk (07/12/2023) AUDIT-C [...] Disorder Neg Hx Clotting disorder Neg Hx There were no vitals filed for this visit. PT: No results found for requested labs [...] Airway Exam: Mallampati: III Cervical ROM: FROM Upper lip bite test class: 1 Cardiovascular Exam: Rate: regular Rhythm: regular Pulmonary Exam: LCTA, bilat Anesthesia Plan ASA 3 My patient is approved for the Anesthesia Controlled Medication protocol when under care of a STAMP MOUNTER Planned anesthesia: General Informed Consent: Anesthesia plan and risks discussed with patient. Plan and Consent Comments: Recently diagnosed severe sleep apnea supine, M obesity Consent and Attending signature: I and/or my designee have discussed the anesthesia plan, benefits, possible alternatives, parental presence at time of induction (if indicated), and clinically relevant risks that may include dental injury, unintentional awareness, and/or other complications. The patient and/or parent/legal guardian understand, and agree to proceed. All questions answered. ER DELIVERER documented in this encounter Plan of Treatment Not on file documented as of this encounter Visit Diagnoses Not on filedocumented in this encounter Administered Medications Inactive Administered Medications - up to 3 most recent administrations Medication Order MAR Action Action Date Dose Rate Site fentaNYL (SUBLIMAZE) preservative free injection intravenous, As needed, Starting on Mon07/12/23 at 0816, Anesthesia Intra-op Given 07/12/2023 8:16 AM COOLER DELIVERER 50 mcg lidocaine (XYLOCAINE) 20 mg/mL (2 %) injection intravenous, As needed, Starting on Mon07/12/23 at 0818, Anesthesia Intra-op, Indications: Administration of Local AnesthesiaIndications:Adm inistration of Local Anesthesia Given 07/12/2023 8:18 AM COOLER DELIVERER 5 mL propofoL (DIPRIVAN) 10 mg/mL IV intravenous, As needed, Starting on Mon07/12/23 at 0818, Anesthesia Intra-op New Bag 07/12/2023 8:18 AM COOLER DELIVERER 70 mg propofoL (DIPRIVAN) 10 mg/mL IV intravenous, Continuous PRN, Starting on Mon07/12/23 at 0818, Anesthesia Intra-op New Bag 07/12/2023 8:18 AM COOLER DELIVERER 200 mcg/kg/min 160.56 mL/hr sodium chloride 0.9% infusion 30 mL/hr, intravenous, Continuous, Starting on Mon07/12/23 at 0745, Pre-Procedure (GI) New Bag 07/12/2023 8:34 AM COOLER DELIVERER 30 mL/hr New Bag 07/12/2023 8:12 AM COOLER DELIVERER 30 mL/hr documented in this encounter Care Teams Electrical And Electronic Assembler Relationship Specialty Start Date End Date Bj Montaño MD PCP - General Family Medicine 04/15/22 02/19/24 Odilon Chester MD [address] [facility] [place] [address] Referring Physician Gastroenterology 06/06/23 Roosevelt Thomas MD [address] [facility] [place] [address] Fellow Pulmonary Disease 06/06/23 documented as of this encounter
--- OUTSIDE RECORDS SUMMARY | 2024-05-20 13:07 | XMS_ITS | Encounter Summary ---
Author Organization [facility] Healthcare Address [address] [place] [address] Care Team Providers Care Entry Level Drafter Name Role Phone Adam English DO Unavailable Bj Montaño MD Primary Care Provider [phone] Reason for Visit * Reason Onset Date Comments GI Preprocedure 11/24/2022 Encounter Details Date Type Department Care Team (Late st Contact Info) Description 11/24/2022 Telephone [facility] Specialty Services [address] [place] [phone] Moi Correa RN GI Preprocedure Social History Tobacco Use Types Packs/Day Years Used Date Smoking Tobacco: Never Smokeless Tobacco: Never Alcohol Use Standard Drinks/Week Comments Not Currently 0 (1 standard drink = 0.6 oz pur e alcohol) Comments No Sex and Gender Information Value Date Recorded Sex Assigned at Not on file Legal Sex Female 2:22 AM MECHANIST Gender Identity Female 05/18/2019 7:17 PM MECHANIST Sexual Orientation Straight 05/18/2019 7: 17 PM MECHANIST documented as of this encounter Ordered Prescriptions Prescription Sig Dispense Quantity Refills Last Filled Start Date End Date sodium, potassium & mag sulfates (SUPREP BOWEL KIT) 17.5-3.13-1.6 gram recon solnIndications:B owel Evacuation Use prep per instructions the day before procedure for bottle #1 & bottle #2 the AM of procedure 1 mL 11/24/2022 3 documented in this encounter Miscellaneous Notes * Telephone Encounter - Moi Correa RN - 11/24/2022 3:42 PM CDT Procedure information Date of procedure: 01/04/23 Time of procedure: 1230 Arrival time:1130 Location:[facility] Proceduralist: Henrik Bunch Method of instructions: Verbal reviewed with patient [x]Confirmation of ride/chute operator [x]Post anesthesia restrictions given [x]NPO Instructions: after 1030 on 12/28/22 [x]Diet Instructions:clear liquids on both 01/03/23 & 01/04/23 [x]Take non-blood thinner prescription meds that morning [x]Bring med list, photo ID, insurance card, no valuables [x]Bring COVID vaccination card (if vaccinated) Bowel Prep Prep prescribed: Suprep split dose prep 1800 / 0630 Method of Bowel Prep (RX): E-Scribe Copy . PROCEDURE Type: EGD/Colon Indication: GERD K21.9 / screen z12.11 Referring Physician: Leticia Thorne Date Referred: 11/23/22 CLINICAL ASSESSMENT [] Clinical assessment obtained via phone call with patient N/A []COVID Screening questions [x] Covid vaccination yes []BMI>45, Weight >350 lbs (if yes, note restrictions below) BMI Readings from Last 1 Encounters: 11/24/22 42.47 kg/m?? Wt Readings from Last 1 Encounters: 11/24/22 134.3 kg (296 lb) [] Patient had GI procedure/CPAP clinic/GI clinic <30 days (if Yes, no medical screening questions needed unless new clinical issues in last 30 days) Medical screening questions: BMI/Weight: NA CARDIOVASCULAR: None RESPIRATORY/LUNG: None PFT's 11/24/22 82.1% long haul COVID RENAL/LIVER/GI: None hx of NAFLD & Diverticulitis BLEEDING/CLOTTING: None NEUROLOGICAL: None ENDOCRINE: None PRIOR PROCEDURE ISSUES: None NURSING HOME ADMISSIONS DIRECTOR/: NA IMPLANTS.: None Notes: DIABETIC MEDS Y/N: No/NA []Yes- Discuss diabetes medication management with prescribing physician DIALYSIS Y/N: No/NA []HD- Schedule on non-HD day, see protocol []PD- Drain PD fluid AM of procedure, if colonoscopy order AB ppx, see protocol PACEMAKER/ICD Y/N: No/NA Device info: Last documented device check: Any shocks since last cards visit (if yes must see cardiology for procedure clearance): BLOOD THINNERS/ANTICOAG/ANTIPLATELET (BESIDES ASA) Medication: NONE Physician contacted for hold order/date sent: Hold order Method sent: Date hold received: Hold instructions: CONTINUE ASPIRIN INFORMATION REQUESTED []Imaging: []Medical Progress Note/H&P []Medication list []Other: PATIENT OPTIMIZATION []Physician reviewing escalation: []CPAP: Date scheduled: Outcome : [] Location limitations:none Scheduling Scheduling location limitations: Sap Portal Developer needed [] NA Language: POA [] NA Name: SPECIAL PROCEDURE INSTRUCTIONS documented in this encounter Plan of Treatment Not on file documented as of this encounter Visit Diagnoses Not on filedocumented in this encounter Care Teams Entry Level Drafter Relationship Specialty Start Date End Date Bj Montaño MD PCP - General Family Medicine 04/15/22 02/19/24 Adam English DO Rn Pool Gastroenterology 03/26/19 06/05/23 documented as of this encounter
--- OUTSIDE RECORDS SUMMARY | 2024-05-20 13:07 | XMS_ITS | Encounter Summary ---
Author Organization [facility] Healthcare Address [address] [place] [address] Care Team Providers Care Mathematics Instructor Name Role Phone Adam English DO Unavailable [phone] Bj Montaño MD Primary Care Provider [phone] Encounter Details Date Type Department Care Team (Latest Contact Info) Description 01/11/2023 8:54 AM CDT - 01/11/2023 11:59 PM CDT Hospital Encounter [address] [address] Shortness of breath; Obesity, unspecified; Esophageal reflux; Essential hypertension, malignant Discharge Disposition: Discharge to home or self [...] on file Legal Sex Female 2:22 AM MECHANICAL MAINTENANCE FOREMAN Gender Identity Female 05/18/2019 7:17 PM MECHANICAL MAINTENANCE FOREMAN Sexual Orientation Straight 05/18/2019 7: 17 PM MECHANICAL MAINTENANCE FOREMAN documented as of this encounter Medications at [...] Do not swallow. 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 script 11/23/2022 3 venlafaxine 225 mg tablet extended release 24hr 24 hr tablet 05/12/2022 02 4 documented as of this encounter Discharge Disposition Disposition Code Departure Means Destination Discharge to home or self care documented in this encounter Plan of Treatment Not on file documented as of this encounter Procedures Procedure Name Priority Date/Time Associated Diagnosis Comments EGFR Routine 01/11/2023 8:54 AM CDT Shortness of breath Obesity, unspecified Esophageal reflux Essential hypertension, malignant DIFFERENTIAL AUTO Routine 01/11/2023 8:5 4 AM CDT Shortness of breath Obesity, unspecified Esophageal reflux Essential hypertension, malignant CBC WITH AUTO DIFFERENTIAL Routine 01/11/2023 8:54 AM CDT Shortness of breath Obesity, unspecified Esophageal reflux Essential hypertension, malignant TSH Routine 01/11/2023 8:54 AM CDT Shortness of breath Obesity, unspecified Esophageal reflux Essential hypertension, malignant LIPID PANEL Routine 01/11/2023 8:54 AM CDT Shortness of breath Obesity, unspecified Esophageal reflux Essential hypertension, malignant COMPREHENSIVE METABOLIC PANEL Routine 01/11/2023 8:54 AM CDT Shortness of breath Obesity, unspecified Esophageal reflux Essential hypertension, malignant documented in this encounter Results * eGFR (01/11/2023 8:54 AM CDT) [facility] Signature eGFR 61 mL/min/1. 73 m2 [facility] Comment: Interpretive Data Reference Interval Normal ?>/= [...] interpretive data was last reviewed 2021. Blood 01/11/2023 8:54 AM CDT 01/11/2023 2:01 PM CDT us Leticia Thorne VICE CHANCELLOR LAB BLOOD ORDERABLES Temi brito Result [facility] [address] [place] [address] * Differential, auto (01/11/2023 8:54 AM CDT) Neutrophil abs 3.9 1.7 - 6.5 K/cumm [facility] Imm gran abs 0.0 0.0 - 0.1 K/cumm [facility] Lymphocyte abs 2.7 0.8 - 3.3 K/cumm [facility] Monocyte abs 0.6 0.2 - 0.8 K/cumm [facility] Eosinophil abs 0.2 0.0 - 0.5 K/cumm [facility] Basophil abs 0.1 0.0 - 0.1 K/cumm [facility] Neutrophil pct 53.2 % [facility] Comment: Interpretive Data Percent cell count reference ranges are not reported, since discordance with absolute values may lead to misinterpretation of CBC data. Current Interpretive Data was last revised on 2017. Imm gran pct 0.3 % [facility] Comment: Interpretive Data Percent cell count reference ranges are not reported, since discordance with absolute values may lead to misinterpretation of CBC data. Current Interpretive Data was last revised on 2017. Lymphocyte pct 36.1 % [facility] Comment: Interpretive Data Percent cell count reference ranges are not reported, since discordance with absolute values may lead to misinterpretation of CBC data. Current Interpretive Data was last revised on 2017. Monocyte pct 7.4 % [facility] Comment: Interpretive Data Percent cell count reference ranges are not reported, since discordance with absolute values may lead to misinterpretation of CBC data. Current Interpretive Data was last revised on 2017. Eosinophil pct 2.3 % [facility] Comment: Interpretive Data Percent cell count reference ranges are not reported, since discordance with absolute values may lead to misinterpretation of CBC data. Current Interpretive Data was last revised on 2017. Basophil pct 0.7 % [facility] Comment: Interpretive Data Percent cell count reference ranges are not reported, since discordance with absolute values may lead to misinterpretation of CBC data. Current Interpretive Data was last revised on 2017. Blood 01/11/2023 8:54 AM CDT 01/11/2023 1:58 PM CDT Leticia Thorne VICE CHANCELLOR LAB BLOOD ORDERABLES Temi l Result Performing Organization Address [facility]/ZIP Co de Phone Number BRITTANY [address] [place] [address] * CBC with auto differential (01/11/2023 8:54 AM CDT) WBC 7.4 3.8 - 9.9 K/cumm [facility] Hgb 14.4 11.9 - 15.5 g/dL [facility] Hct 43.7 35.6 - 45.5 % [facility] Plt 271 150 - 400 K/cumm [facility] MPV 11.3 9.1 - 12.3 fL [facility] RBC 4.60 3.90 - 5.20 M/cumm [facility] MCV 95.0 81.3 - 96.4 fL [facility] MCH 31.3 27.1 - 33.3 pg [facility] MCHC 33.0 32.3 - 35.7 g/dL [facility] RDW CV 13.1 11.1 - 14.9 % [facility] RDW SD 45.5 35.7 - 48.1 fL [facility] NRBC abs 0.00 0.00 - 0.01 K/cumm [facility] Blood 01/11/2023 8:54 AM CDT 01/11/2023 1:58 PM CDT Leticia Thorne VICE CHANCELLOR LAB BLOOD ORDERABLES Temi l Result Performing Organization Address [facility]/ZIP Co de Phone Number BRITTANY [address] [place] [address] * Lipid panel (01/11/2023 8:54 AM CDT) [facility] Signature Cholesterol 170 30 - 199 mg/dL [facility] R[facility]A Comment: Interpretive Data Ages < or = 19 years ??Acceptable: ? <170 mg/dL ??Borderline high: ??170-199 mg/dL ??High: ? >or= 200 mg/dL Ages > or = 20 years ??Desirable: ?<200 mg/dL ??Borderline high: ??200-239 mg/dL ??High: ? >or= 240 mg/dL Literature References: 1. Expert Panel on Integrated Guidelines for Cardiovascular Health and Risk Reduction in Children and Adolescents. Pediatrics 2011;128:S213 2. NCEP Expert Panel. Circulation 2004;110:227 Current Interpretive Data was last revised on 2018. Triglycerides 100 <=149 mg/dL [facility] Comment: Interpretive Data Ages < or = 9 years ??Acceptable: ? <75 mg/dL ??Borderline high: ??75-99 mg/dL ??High: ? >or= 100 mg/dL Ages 10 to 20 years ??Acceptable: ? <90 mg/dL ??Borderline high: ??90-129 mg/dL ??High: ? >or= 130 mg/dL Ages > or = 20 years ??Desirable: ?<150 mg/dL ??Borderline high: ??150-199 mg/dL ??High: ? 200-499 mg/dL ?Very high: ?? >or= 499 mg/dL Literature References: 1. Expert Panel on Integrated Guidelines for Cardiovascular Health and Risk Reduction in Children and Adolescents. Pediatrics 2011;128:S213 2. NCEP Expert Panel. Circulation 2004;110:227 Current Interpretive Data was last revised on 2018. HDL 53 >=40 mg/dL [facility] Comment: Interpretive Data Ages < or = 19 years ??Acceptable: ? >45 mg/dL ??Borderline low: ?? 40-45 mg/dL ??Low: ? <40 mg/dL Ages > or = 20 years ??Desirable: ?>or= 60 mg/dL ??Low: ? <40 mg/dL Literature References: 1. Expert Panel on Integrated Guidelines for Cardiovascular Health and Risk Reduction in Children and Adolescents. Pediatrics 2011;128:S213 2. NCEP Expert Panel. Circulation 2004;110:227 Current Interpretive Data was last revised on 2018. LDL, calculated 97 <=129 mg/dL [facility] Comment: Interpretive Data Ages < or = 19 years ??Acceptable: ? <110 mg/dL ??Borderline high: ??110-129 mg/dL ??High: ?>or= 130 mg/dL Ages > or = 20 years ??Optimal: ? <100 mg/dL ??Near optimal: ?100-129 mg/dL ??Borderline high: ?? 130-159 mg/dL ??High: ?>160 mg/dL Literature References: 1. Expert Panel on Integrated Guidelines for Cardiovascular Health and Risk Reduction in Children and Adolescents. Pediatrics 2011;128:S213 2. NCEP Expert Panel. Circulation 2004;110:227 Current Interpretive Data was last revised on 2018. Non-HDL Cholesterol 117 mg/dL [facility] Comment: Interpretive Data Ages < or = 19 years ??Acceptable: ?<120 mg/dL ??Borderline high: ??120-144 mg/dL ??High: ?>145 mg/dL Ages > or = 20 years ??When triglycerides are >200 mg/dL, Non-HDL cholesterol is a secondary target of ? therapy with treatment goals that are 30 mg/dL greater than the LDL cholesterol target. ? Literature References: 1. Expert Panel on Integrated Guidelines for Cardiovascular Health and Risk Reduction in Children and Adolescents. Pediatrics 2011;128:S213 2. NCEP Expert Panel. Circulation 2004;110:227 Current Interpretive Data was last revised on 2018. Chol/HDL ratio 3 [facility] Blood (Blood, Venous) 01/11/2023 8:54 AM CDT 01/11/2023 1:58 PM CDT us Leticia Thorne VICE CHANCELLOR LAB BLOOD ORDERABLES Temi brito Result [facility] [address] Department [place] [address] * Comprehensive metabolic panel (01/11/2023 8:54 AM CDT) Sodium 141 135 - 145 mmol/L [facility] Potassium, pl 4.2 3.3 - 4.9 mmol/L [facility] Chloride 104 97 - 110 mmol/L [facility] CO2 28 22 - 32 mmol/L [facility] Anion gap 9 2 - 15 mmol/L [facility] BUN 18 6 - 25 mg/dL [facility] Creatinine 1.02 0.60 - 1.10 mg/dL [facility] Glucose 110 70 - 199 mg/dL [facility] Comment: [...] classification and Diagnosis of Diabetes Diabetes Care 202; 46: S19-S40. Current interpretive data was last revised 2022. Calcium 9.6 8.5 - 10.3 mg/dL [facility] Bilirubin, total 0.5 0.1 - 1.2 mg/dL [facility] Protein, pl 7.2 6.5 - 8.5 g/dL [facility] Albumin 4.1 3.5 - 5.0 g/dL [facility] Alk phos 47 40 - 130 Units/L [facility] ALT 36 7 - 45 Units/L [facility] AST 37 10 - 45 Units/L [facility] Blood (Blood, Venous) 01/11/2023 8:54 AM CDT 01/11/2023 1:58 PM CDT Leticia Thorne VICE CHANCELLOR LAB BLOOD ORDERABLES Temi l Result Performing Organization Address City/[facility] Co de Phone Number BRITTANY RIVERA [address] [facility] [place] [address] * TSH (01/11/2023 8:54 AM CDT) Thyroid Stimulating Hormone 2.45 0.30 - 4.20 mcIUnit/mL [facility] Blood (Blood, Venous) 01/11/2023 8:54 AM CDT 01/11/2023 1:58 PM CDT Leticia Thorne VICE CHANCELLOR LAB BLOOD ORDERABLES Temi l Result Performing Organization Address [facility] de Phone Number BRITTANY RIVERA [address] [place] [address] documented in this encounter Visit Diagnoses Diagnosis Shortness of breath Obesity, unspecified Esophageal reflux Essential hypertension, malignant documented in this encounter Care Teams Mathematics Instructor Relationship Specialty Start Date End Date Bj Montaño MD PCP - General Family Medicine 04/15/22 02/19/24 Adam English DO Bank Consultant Gastroenterology 03/26/19 06/05/23 documented as of this encounter
--- OUTSIDE RECORDS SUMMARY | 2024-05-20 13:07 | XMS_ITS | Encounter Summary ---
Author Organization [facility] Address [address] [place] [address] Phone Care Team Providers Care Software Tools Build Engineer Name Role Phone Adam English DO Unavailable [phone] Bj Montaño MD Primary Care Provider [phone] Encounter Details Date Type Department Care Team (Late st Contact Info) Description 06/01/2023 Orders Only [facility] Gastroenterology [address] [facility] 2nd [address] [place] [address] Odilon Chester MD [address] [place] [address] Social History Tobacco Use Types Packs/Day Years [...] on file Legal Sex Female 2:22 AM CARDIOVASCULAR SPECIALIST Gender Identity Female 05/18/2019 7:17 PM CARDIOVASCULAR SPECIALIST Sexual Orientation Straight 05/18/2019 7: 17 PM CARDIOVASCULAR SPECIALIST documented as of this encounter Ordered Prescriptions Prescription Sig Dispense Quantity Refills Last Filled Start Date End Date omeprazole (PriLOSEC) 20 mg capsule Take 1 capsule (20 mg total) by mouth daily 30 capsule 3 06/01/2023 documented in this encounter Plan of Treatment Not on file documented as of this encounter Visit Diagnoses Not on filedocumented in this encounter Discontinued Medications Medication Sig Discontinue Reason Start Date End Da te pantoprazole DR (PROTONIX) 40 mg EC tabletIndications:Gastroe sophageal reflux disease, unspecified whether esophagitis present Take 1 tablet (40 mg total) by mouth daily Alternate therapy 05/16/2023 06/01/2023 documented as of this encounter Care Teams Software Tools Build Engineer Relationship Specialty Start Date End Date Bj Montaño MD PCP - General Family Medicine 04/15/22 02/19/24 Adam English DO Microsoft Windows Engineer Gastroenterology 03/26/19 06/05/23 documented as of this encounter
--- OUTSIDE RECORDS SUMMARY | 2024-05-20 13:07 | XMS_ITS | Encounter Summary ---
Author Organization [facility] Address [address] [place] [address] Phone Care Team Providers Care School Child Care Attendant Name Role Phone Adam English DO Unavailable [phone] Bj Montaño MD Primary Care Provider [phone] Encounter Details Date Type Department Care Team (Late st Contact Info) Description 04/27/2023 Orders Only [facility] Gastroenterology [address] [facility] 2nd [address] [place] [address] Odilon Chester MD [address] [place] [address] Gastritis without bleeding, unspecified chronicity, unspecified gastritis type (Primary Dx); Gastric polyp Social History Tobacco Use Types Packs/Day Years [...] on file Legal Sex Female 2:22 AM MARKET BASKET MAKER Gender Identity Female 05/18/2019 7:17 PM MARKET BASKET MAKER Sexual Orientation Straight 05/18/2019 7: 17 PM MARKET BASKET MAKER documented as of this encounter Plan of Treatment Not on file documented as of this encounter Visit Diagnoses Diagnosis Gastritis without bleeding, unspecified chronicity, unspecified gastritis type- Primary Gastric polyp Benign neoplasm of stomach documented in this encounter Orders Case Request Count Last Ordered Date First Orde red Date CASE REQUEST GI 1 04/27/2023 documented in this encounter Care Teams School Child Care Attendant Relationship Specialty Start Date End Date Bj Montaño MD PCP - General Family Medicine 04/15/22 02/19/24 Adam English DO Passenger Service Supervisor Gastroenterology 03/26/19 06/05/23 documented as of this encounter
--- OUTSIDE RECORDS SUMMARY | 2024-05-20 13:07 | XMS_ITS | Encounter Summary ---
Author Organization [facility] Address [address] [place] [address] Phone Care Team Providers Care Retail Marketing Coordinator Name Role Phone Bj Montaño MD Primary Care Provider [phone] Odilon Chester MD Unavailable [phone] Roosevelt Thomas MD Unavailable [phone] Reason for Visit * Sleep Medicine (Routine) - Closed Specialty Diagnoses / Procedures Referred By Contac t Referred To Contact Diagnoses Sleep disturbance Snoring Morbid obesity (HCC) Essential hypertension Procedures PSG-Sleep Provider Use Only Peace Escobar NP Phone: tel: fax: [facility] (All Locations) Referral ID Status Reason Start Date Expiration Date Visits Re quested Visits Authorized [id number] Closed 06/01/2023 07/30/2023 1 1 Encounter Details Date Type Department Care Team (Latest Contact Info) Description 06/26/2023 7:30 PM IT SECURITY CONSULTING DIRECTOR Procedure visit [facility] Neuro [facility] [address] [facility] 6th [address] [place] [address] DON (obstructive sleep apnea) (Primary Dx); Sleep disturbance; Snoring; Morbid obesity (HCC); Essential hypertension Social [...] on file Legal Sex Female 2:22 AM IT SECURITY CONSULTING DIRECTOR Gender Identity Female 05/18/2019 7:17 PM IT SECURITY CONSULTING DIRECTOR Sexual Orientation Straight 05/18/2019 7: 17 PM IT SECURITY CONSULTING DIRECTOR documented as of this encounter Last Filed Vital Signs Vital Sign Reading Time Taken Comments Blood Pressure 114/74 06/26/2023 7:35 PM IT SECURITY CONSULTING DIRECTOR Pulse 89 06/26/2023 7:35 PM IT SECURITY CONSULTING DIRECTOR Temperature 36.9 ??C (98.4 ??F) 06/26/2023 7:35 PM CS T Respiratory Rate - - Oxygen Saturation 94% 06/26/2023 7:35 PM IT SECURITY CONSULTING DIRECTOR Inhaled Oxygen Concentration - - Weight 133.8 kg (295 lb) 06/26/2023 7:35 PM IT SECURITY CONSULTING DIRECTOR Height 177.8 cm (5' 10 ) 06/26/2023 7:35 PM IT SECURITY CONSULTING DIRECTOR Body Mass Index 42.33 06/26/2023 7:35 PM IT SECURITY CONSULTING DIRECTOR documented in this encounter Progress Notes * Tiffanie Ruff MD - 06/26/2023 7:30 PM CSTAssociated Order(s): PSG- Sleep Provider Use Only Pre-Procedure Diagnose(s): Sleep disturbance; Snoring; Morbid obesity (HCC); Essential hypertension Post-Procedure Diagnose(s): Sleep disturbance; Snoring; Morbid obesity (HCC); Essential hypertension Department of Neurology [facility] Division of Sleep Medicine [address] [facility] [place] [address] Main: [phone] PSG-Sleep Provider Use Only Date/Time: 06/26/2023 10:00 PM Performed by: Tiffanie Ruff MD Authorized by: Peace Escobar NP RE: Josy Fiore : 1960 PETER: 06/26/2023 DIAGNOSTIC POLYSOMNOGRAM WITH CONTINUOUS POSITIVE AIRWAY PRESSURE TITRATION Clinical History: Josy Fiore is a 63 year-old female with anxiety, depression, hypertension, GERD, recurrent sinus infections, diverticulitis status post colectomy and seasonal allergies who presents with snoring. Height: 70.0 inches, Weight: 295.0 lb, BMI: 42.3 kg/m??, Neck Circumference: 17.5 inches Polysomnographic Findings: Unless otherwise noted, polysomnogram was recorded and scored in accordance with recommended parameters as outlined in the AASM Manual for the Scoring of Sleep and Associated Events, Version 3.0. Hypopneas were scored 1) in accordance with recommended (3%)parameters as outlined in Chapter VIII, Part 1: Rules for Adults, Category D, Section 1A, defined by 3% oxygen desaturation or arousal in addition to reduction in flow, and 2) additionally scored by acceptable (4%) parameters as outlined in Chapter VIII, Part 1: Rules for Adults, Category D, Section 1B, defined by 4% oxygen desaturation in addition to reduction in flow. During all night polysomnography, the patient slept for 322 minutes out of 504 minutes in bed. Lights Out occurred at 21:41 and Lights On occurred at 06:06. Sleep latency was 48 minutes and REM latency was 347.5 minutes. Diagnostic Baseline Findings: During the diagnostic portion of the recording, the patient slept for 127.5 minutes, with a sleep efficiency of 55.9%. Respiratory monitoring using nasal/oral thermistor, pressure transducer and polyvinylidene fluoride (PVDF) effort belts revealed a 3% apnea/hypopnea index (3% AHI) of 31.5 events per hour of sleep, a 4% apnea/hypopnea index (4% AHI) of 17.4 events per hour of sleep, a central apnea index (ELE) of 0.0 events per hour of sleep, and a 3% central apnea-hypopnea index (CAHI) of 0.0 events per hour of sleep. The patient experienced 0.0 obstructive apneas, 0.0 mixed apneas, 0.0 central apneas, 31.5 obstructive 3% hypopneas, 0.0 central 3% hypopneas. There was a 3% AHI of 31.5 events per hour of NREM sleep, REM sleep was not observed during the diagnostic portion of the recording. The patient had a 3% AHI of 36.6 events per hour of sleep in the supine position and 20.0 events per hour of sleep in the lateral position. The patient had a baseline saturation of 92-97% while awake. During NREM sleep, the baseline SpO2 average range was 91-95%. REM sleep not observed in baseline. Desaturations associated with abnormal breathing events were in the 76-92% range during NREM sleep. The lowest SpO2 was 76.0%. The patient spent 7.9 minutes with SpO2 less than 89%. The snoring microphone and hotel maintenance technician observation revealed frequent snores. EMG monitoring of the tibialis anterior muscle revealed 54.1 periodic leg movements per hour of sleep and these resulted in29.2 arousals per hour. There were 23.5 arousals per hour of sleep for no apparent reason. EKG monitoring revealed sinus rhythm and premature ventricular complexes. If applicable, determination of sufficient AHI to initiate treatment in accordance with split nightstart protocol was based on 3% AHI. CPAP Findings: Following the 127.5 minutes of sleep data obtained during the diagnostic portion of the study, a CPAP trial was initiated. CPAP settings from 4 cm H2O to 12 cm H2O were tested. A pressure of 12 cm H2O was found to be best. Recording at this pressure continued for 59 minutes of sleep. The patient slept in the lateral and supine positions. Use of this CPAP setting resulted in the appearance of conso lidated sleep, with 21 minutes of REM sleep recorded. At this pressure, the patient experienced 32.5 arousals without apparent cause per hour of sleep. At this pressure, the patient had an 3% AHI of 5.1 events per hour of sleep, a 4% AHI of 3.1 events per hour of sleep, a baseline oxygen saturationof 91-95%, and desaturations of 90-92% during the respiratory events. The patient spent 0.0 minuteswith SpO2 less than 89%. The final PAP mask used was a small/medium Rueda Paykel Nayeli full face mask. Interpretation: This split night polysomnogram showed evidence of moderate to severe obstructive sleep apnea based on a 3% AHI of 31.5 and a 4% AHI of 17.4 events per hour of sleep. Titration of CPAP documented thatthis is an optimal treatment for the patient's obstructive sleep apnea, with the best pressure being 12 cm H2O. I discussed these findings with the patient recommended APAP with pressure of 10-16 cm H2O with EPRlevel of 3 in Ramp time of 15 minutes with pressure of 6 cm H2O. She will follow up in the clinic in 3-4 months for compliance visit. (). Best CPAP Pressure: 12 cm H2O Diagnosis: obstructive sleep apnea G47.33 Accredited Scorer: Pham Caban I attest that I have reviewed this polysomnogram epoch by epoch, in accordance with AASM standards. Jean Andrea MD Sleep Medicine Fellow, PGY7 [facility] [place] By signing this report, I certify that I have read this polysomnogram, edited the report, and agreewith the description of findings and interpretation contained in this written report. Tiffanie Ruff M.D. Professor of Neurology Diplomate, [employer]iat[employer] and Neurology With added qualifications in Sleep Medicine SECURITY CONSULTING DIRECTOR documented in this encounter Plan of Treatment Not on file documented as of this encounter Procedures Procedure Name Priority Date/Time Associated Diagnosis Comments PSG (COMPLEX) Routine 06/26/2023 10:00 PM IT SECURITY CONSULTING DIRECTOR Sleep disturbance Snoring Morbid obesity (HCC) Essential hypertension documented in this encounter Results * PSG (COMPLEX) (06/26/2023 10:00 PM IT SECURITY CONSULTING DIRECTOR) Narrative Tiffanie Ruff MD - 06/26/2023 10:00 PM IT SECURITY CONSULTING DIRECTOR Tiffanie Ruff MD ? 07/03/2023 10:48 AM [...] Unspecified essential hypertension documented in this encounter Orders General Supply Count Last Ordered Date First Or dered Date CPAP MACHINE WITH HEATED HUMIDIFIER 1 06/27 documented in this encounter Care Teams Retail Marketing Coordinator Relationship Specialty Start Date End Date Bj Montaño MD PCP - General Family Medicine 04/15/22 02/19/24 Odilon Chester MD [address] [facility] [place] [address] Referring Physician Gastroenterology 06/06/23 Roosevelt Thomas MD [address] [facility] [place] [address] Fellow Pulmonary Disease 06/06/23 documented as of this encounter
--- OUTSIDE RECORDS SUMMARY | 2024-05-20 13:07 | XMS_ITS | Encounter Summary ---
Author Organization [facility] Address [address] [facility] [address] [place] [id number] Care Team Providers Care Shotgun Shell Assembly Machine Adjuster Name Role Phone Adam English DO Unavailable [phone] Bj Montaño MD Primary Care Provider [phone] Encounter Details Date Type Department Care Team (Late st Contact Info) Description 01/11/2023 8:15 AM CDT Lab [facility] Outpatient Lab at [address] [phone] Shortness of breath (Primary Dx); Obesity, unspecified; Esophageal reflux; Essential hypertension, malignant Social History Tobacco Use Types Packs/Day Years [...] on file Legal Sex Female 2:22 AM ORE SMELTER Gender Identity Female 05/18/2019 7:17 PM ORE SMELTER Sexual Orientation Straight 05/18/2019 7: 17 PM ORE SMELTER documented as of this encounter Plan of Treatment Not on file documented as of this encounter Results * TSH (01/11/2023 8:54 AM CDT) Thyroid Stimulating Hormone 2.45 0.30 - 4.20 mcIUnit/mL CERNER CH Blood (Blood, Venous) 01/11/2023 8:54 AM CDT 01/11/2023 1:58 PM CDT us Leticia Thorne IT PROJECT MANAGER LAB BLOOD ORDERABLES Temi brito Result [facility] [address] Department [place] [address] * Comprehensive metabolic panel (01/11/2023 8:54 AM [...] 01/11/2023 1:58 PM CDT us Leticia Thorne IT PROJECT MANAGER LAB BLOOD ORDERABLES Temi brito Result Performing Organization Address City/State/ZIP [place] Phone Number BRITT[facility] [address] Department [place] [address] * Lipid panel (01/11/2023 8:54 AM CDT) Cholesterol 170 30 - 199 mg/dL BRITTANY Comment: Interpretive Data Ages < or = [...] 01/11/2023 1:58 PM CDT us Leticia Thorne IT PROJECT MANAGER LAB BLOOD ORDERABLES Temi brito Result [facility] [address] Department [place] [address] * CBC with auto differential (01/11/2023 8:54 AM CDT) WBC 7.4 3.8 - 9.9 K/cumm CERNER Hgb 14.4 11.9 - 15.5 g/dL CERNER Hct 43.7 35.6 - 45.5 % CERNER Plt 271 150 - 400 K/cumm CERNER MPV 11.3 9.1 - 12.3 fL CERNER RBC 4.60 3.90 - 5.20 M/cumm CERNER MCV 95.0 81.3 - 96.4 fL CERNER CH MCH 31.3 27.1 - 33.3 pg CERNER CH MCHC 33.0 32.3 - 35.7 g/dL CERNER CH RDW CV 13.1 11.1 - 14.9 % CERNER CH RDW SD 45.5 35.7 - 48.1 fL CERNER CH NRBC abs 0.00 0.00 - 0.01 K/cumm CERNER Blood 01/11/2023 8:54 AM CDT 01/11/2023 1:58 PM CDT us Leticia Thorne IT PROJECT MANAGER LAB BLOOD ORDERABLES Temi brito Result [facility] [place] [address] Department [place] [address] documented in this encounter Visit Diagnoses Diagnosis Shortness of breath- Primary Obesity, unspecified Esophageal reflux Essential hypertension, malignant documented in this encounter Care Teams Shotgun Shell Assembly Machine Adjuster Relationship Specialty Start Date End Date Bj Montaño MD PCP - General Family Medicine 04/15/22 02/19/24 Adam English DO Kosher Inspector Gastroenterology 03/26/19 06/05/23 documented as of this encounter
--- OUTSIDE RECORDS SUMMARY | 2024-05-20 13:07 | XMS_ITS | Encounter Summary ---
Author Organization [facility] Address [address] [place] [address] Phone Care Team Providers Care Custom Bike Builder Name Role Phone Adam English DO Unavailable [phone] Bj Montaño MD Primary Care Provider [phone] Encounter Details Date Type Department Care Team (Late st Contact Info) Description 05/30/[address] [facility] Pulmonary [address] [facility] [address] 8th [place] [address] [place] [address] Zina Ojeda RN Social History Tobacco Use Types Packs/Day Years [...] on file Legal Sex Female 2:22 AM FIELD MARKETER Gender Identity Female 05/18/2019 7:17 PM FIELD MARKETER Sexual Orientation Straight 05/18/2019 7: 17 PM FIELD MARKETER documented as of this encounter Miscellaneous Notes * Telephone Encounter - Zina Ojeda RN - 05/30/2023 9:25 AM FIELD MARKETER Message sent to scheduling hub ----- Message from BALDOMERO Plascencia sent at 05/30/2023 9:04 AM FIELD MARKETER ----- Regarding: Reschedule appt Contact: Pt would like to reschedule her appt she canceled for today. Thanks, Dione D MARKETER D MARKETER documented in this encounter Plan of Treatment Not on file documented as of this encounter Visit Diagnoses Not on filedocumented in this encounter Care Teams Custom Bike Builder Relationship Specialty Start Date End Date Bj Montaño MD PCP - General Family Medicine 04/15/22 02/19/24 Adam English DO Parts Salesperson Gastroenterology 03/26/19 06/05/23 documented as of this encounter
--- OUTSIDE RECORDS SUMMARY | 2024-05-20 13:07 | XMS_ITS | Encounter Summary ---
Author Organization [facility] Address [address] [place] [address] Phone Care Team Providers Care Rehabilitation Services Coordinator Name Role Phone Adam English DO Unavailable [phone] Bj Montaño MD Primary Care Provider [phone] Reason for Visit * Reason Comments Follow-up Encounter Details Date Type Department Care Team (Late st Contact Info) Description 03/17/2023 9:40 AM CDT Office Visit [facility] Ophthalmology [address] [place] [phone] Avelino Vásquez, OD [address] [facility] [place] [address] Posterior vitreous detachment, both eyes (Primary Dx); Retinal tear of left eye; Combined form of age-related cataract, both eyes Social History Tobacco Use Types [...] on file Legal Sex Female 2:22 AM SPRAY DYER Gender Identity Female 05/18/2019 7:17 PM SPRAY DYER Sexual Orientation Straight 05/18/2019 7: 17 PM SPRAY DYER documented as of this encounter Progress Notes * Avelino Vásquez, OD - 03/17/2023 9:40 AM CDT Reason for Visit Today Chief Complaint Follow-up ASSESSMENT/ORDERS/PROCEDURES PERFORMED TODAY Problem List Eye/Vision Problems Posterior vitreous detachment, both eyes - Primary Current Assessment & Plan Exam reassuring today - PVD without holes/tears/breaks on dilated exam Return to [facility] in 6 months for DFE OU. Retinal tear of left eye Current Assessment & Plan S/p retinopexy 07/2022 Doing well. Well barricaded. Reviewed strict return precautions. Combined form of age-related cataract, both eyes Current Assessment & Plan NVS, follow. The signs and symptoms of retinal detachment, tears, infection, elevated intra- ocular pressure werereviewed with the patient. Patient knows to call should they have any of the symptoms. PLAN FOR NEXT VISIT Return in about 6 months (around 09/15/2023) for Dilated exam. documented in this encounter Miscellaneous Notes * Assessment & Plan Note - Avelino Vásquez, OD - 03/17/2023 10:21 AM CDT Associated Problem(s): Combined form of age-related cataract, both eyes NVS, follow. * Assessment & Plan Note - Avelino Vásquez, OD - 03/17/2023 10:21 AM CDT Associated Problem(s): Retinal tear of left eye S/p retinopexy 07/2022 Doing well. Well barricaded. Reviewed strict return precautions. * Assessment & Plan Note - Avelino Vásquez, OD - 03/17/2023 10:20 AM CDT Associated Problem(s): Posterior vitreous detachment, both eyes Exam reassuring today - PVD without holes/tears/breaks on dilated exam Return to [facility] in 6 months for DFE OU. documented in this encounter Plan of Treatment Not on file documented as of this encounter Visit Diagnoses Diagnosis Posterior vitreous detachment, both eyes- Primary Vitreous degeneration Retinal tear of left eye Combined form of age-related cataract, both eyes documented in this encounter Eye Exam Visual Acuity (Snellen - Linear) Right eye Left eye Dist cc 20/20 20/25 -1+3 Correction: Glasses Tonometry (Tonopen, 9:24 AM) Right eye Left eye Pressure 14 18 Pupils Dark Light Shape React APD Right eye 5 3 Round Brisk None Left eye 5 3 Round Brisk None Visual Wheeler (Counting fingers) Right eye Left eye Full Full Extraocular Movement Right eye Left eye Full Full Neuro/Psych Oriented x3: Yes Mood/Affect: Normal Dilation Both eyes: 1.0% Mydriacyl, 2 .5% Phenylephrine @ 9:24 AM External Exam Right eye Left eye External Normal Normal Slit Lamp Exam Right eye Left eye Lids/Lashes Normal Normal Conjunctiva/Sclera White and quiet White and ciro et Cornea Clear Clear Anterior Chamber Deep and quiet Deep and quiet Iris Round Round Lens tr NS, 1+ Nuclear sclerosis 1+ N uclear sclerosis, 1+ Cortical cataract Fundus Exam Right eye Left eye Posterior Vitreous PVD (Clark ring), vi t syn, [place] Trevose's negative PVD, Vitreous syneresis Disc Normal Normal C/D Ratio 0.1 0.1 Macula Normal Normal Vessels Normal Normal Periphery Small patch of latti ce temporally , Clark ring horseshoe tear at 5 oclock far periphery s/p barricaded, Laser scar no new tears or detachments Care Teams Rehabilitation Services Coordinator Relationship Specialty Start Date End Date Bj Montaño MD PCP - General Family Medicine 04/15/22 02/19/24 Adam English DO Hop Worker Gastroenterology 03/26/19 06/05/23 documented as of this encounter
--- OUTSIDE RECORDS SUMMARY | 2024-05-20 13:07 | XMS_ITS | Encounter Summary ---
Author Organization [facility] Address [address] [place] [address] Phone Care Team Providers Care District Sales Coordinator Name Role Phone Bj Montaño MD Primary Care Provider [phone] Odilon Chester MD Unavailable [phone] Roosevelt Thomas MD Unavailable Encounter Details Date Type Department Care Team (Late st Contact Info) Description 06/21/2023 Telephone [facility] Neuro Sleep [address] [facility] 6th [address] [place] [address] Yecenia Zavaleta, [facility] Social History Tobacco Use Types Packs/Day Years [...] on file Legal Sex Female 2:22 AM CERTIFIED REGISTERED NURSE PRACTITIONER Gender Identity Female 05/18/2019 7:17 PM CERTIFIED REGISTERED NURSE PRACTITIONER Sexual Orientation Straight 05/18/2019 7: 17 PM CERTIFIED REGISTERED NURSE PRACTITIONER documented as of this encounter Miscellaneous Notes * Telephone Encounter - Yecenia Zavaleta RPSGT - 06/21/2023 1:40 PM CERTIFIED REGISTERED NURSE PRACTITIONER Spoke with patient and answered her questions regarding her upcoming sleep study. IFIED REGISTERED NURSE PRACTITIONER documented in this encounter Plan of Treatment Not on file documented as of this encounter Visit Diagnoses Not on filedocumented in this encounter Care Teams District Sales Coordinator Relationship Specialty Start Date End Date Bj Montaño MD PCP - General Family Medicine 04/15/22 02/19/24 Odilon Chester MD [address] [facility] [place] [address] Referring Physician Gastroenterology 06/06/23 Roosevelt Thomas MD [address] [facility] [place] [address] Fellow Pulmonary Disease 06/06/23 documented as of this encounter
--- OUTSIDE RECORDS SUMMARY | 2024-05-20 13:08 | XMS_ITS | Encounter Summary ---
Author Organization [facility] Address [address] [place] [address] Phone Care Team Providers Care Job Molder Name Role Phone Adam English DO Unavailable [phone] Bj Montaño MD Primary Care Provider [phone] Encounter Details Date Type Department Care Team (Late st Contact Info) Description 09/27/2022 Orders Only [facility] Pulmonary [address] [facility] Advanced Medicine 8th [place] [address] [place] [phone] Roosevelt Thomas MD [address] [place] [address] Social History Tobacco Use Types Packs/Day Years Used Date Smoking Tobacco: Never Smokeless Tobacco: Never Alcohol Use Standard Drinks/Week Comments Not Currently 0 (1 standard drink = 0.6 oz pur e alcohol) Comments No Sex and Gender Information Value Date Recorded Sex Assigned at Not on file Legal Sex Female 2:22 AM ADOPTION COUNSELOR Gender Identity Female 05/18/2019 7:17 PM ADOPTION COUNSELOR Sexual Orientation Straight 05/18/2019 7: 17 PM ADOPTION COUNSELOR documented as of this encounter Plan of Treatment Not on file documented as of this encounter Visit Diagnoses Not on filedocumented in this encounter Additional Health Concerns Infection Onset Date Last Indicated Resolved Time COVID: Recovered Comment:Added based on recent COVID infection. 07/02/2022 07/04/2022 09/30/2022 3:05 AM Rigo BAIG documented as of this encounter Care Teams Job Molder Relationship Specialty Start Date End Date Bj Montaño MD PCP - General Family Medicine 04/15/22 02/19/24 Adam English DO Immunology Teacher Gastroenterology 03/26/19 06/05/23 documented as of this encounter
--- OUTSIDE RECORDS SUMMARY | 2024-05-20 13:08 | XMS_ITS | Encounter Summary ---
Author Organization [facility] Address [address] [place] [address] Care Team Providers Care Assisted Living Home Director Name Role Phone Adam English DO Unavailable [phone] Bj Montaño MD Primary Care Provider [phone] Reason for Visit * Reason Onset Date Comments Covid-19 Home Monitoring 07/04/2022 Encounter Details Date Type Department Care Team (Late st Contact Info) Description 07/04/2022 Telephone [facility] Accountable Care Organization [address] [place] [address] Janie tOt MA [address] [place] [id number] Covid-19 Home Monitoring Social History Tobacco Use Types Packs/Day Years Used Date Smoking Tobacco: Never Smokeless Tobacco: Never Alcohol Use Standard Drinks/Week Comments Not Currently 0 (1 standard drink = 0.6 oz pur e alcohol) Comments No Sex and Gender Information Value Date Recorded Sex Assigned at Not on file Legal Sex Female 2:22 AM WELDER Gender Identity Female 05/18/2019 7:17 PM WELDER Sexual Orientation Straight 05/18/2019 7: 17 PM WELDER documented as of this encounter Miscellaneous Notes * Telephone Encounter - Janie Ott MA - 07/04/2022 8:40 AM CST This patient is being disenrolled from the Painting Trades Worker COVID-19 Home Monitoring program for the following reason: Complete. The patient has either completed the full 14-day program or has expressed 3 days of improved or no symptoms and 7 days since initial onset. We recommend that they are scheduled for a telemedicine evaluation with a primary care provider within 3 days of completion of the program. For questions or concerns about the home monitoring program, please contact . ER documented in this encounter Plan of Treatment Not on file documented as of this encounter Visit Diagnoses Not on filedocumented in this encounter Additional Health Concerns Infection Onset Date Last Indicated Resolved Time COVID: Recovered Comment:Added based on recent COVID infection. 07/02/2022 07/04/2022 09/30/2022 3:05 AM C DT documented as of this encounter Care Teams Assisted Living Home Director Relationship Specialty Start Date End Date Bj Montaño MD PCP - General Family Medicine 04/15/22 02/19/24 Adam English DO Systems Accountant Gastroenterology 03/26/19 06/05/23 documented as of this encounter
--- OUTSIDE RECORDS SUMMARY | 2024-05-20 13:08 | XMS_ITS | Encounter Summary ---
Author Organization [facility] Address [address] [place] [address] Phone Care Team Providers Care Employment Clerk Name Role Phone Adam English DO Unavailable [phone] Bj Montaño MD Primary Care Provider [phone] Reason for Referral * Diagnostic Imaging (Routine) - Closed Specialty Diagnoses / Procedures Referred By Sisi de león Referred To Contact Diagnoses Posterior vitreous detachment, right eye Retinal tear of left eye Posterior vitreous detachment of left eye Procedures OCT, Retina - OU - Both Eyes Abhilash Wills MD Phone: tel: fax: [facility] (All Locations) Referral ID Status Reason Start Date Expiration Date Visits Re quested Visits Authorized [id number] Closed 11/02/2022 12/02/2023 1 1 Reason for Visit * Reason Comments Spots and/or Floaters Encounter Details Date Type Department Care Team (Late st Contact Info) Description 11/02/2022 1:30 PM CDT Office Visit [facility] Ophthalmology [address] [place] [address] [place] [id number] Posterior vitreous detachment, right eye (Primary Dx); Retinal tear of left eye; Posterior vitreous detachment of left eye Social History Tobacco Use Types Packs/Day Years Used Date Smoking Tobacco: Never Smokeless Tobacco: Never Alcohol Use Standard Drinks/Week Comments Not Currently 0 (1 standard drink = 0.6 oz pur e alcohol) Comments No Sex and Gender Information Value Date Recorded Sex Assigned at Not on file Legal Sex Female 2:22 AM ASSEMBLER DC FIELD RING Gender Identity Female 05/18/2019 7:17 PM ASSEMBLER DC FIELD RING Sexual Orientation Straight 05/18/2019 7: 17 PM ASSEMBLER DC FIELD RING documented as of this encounter Progress Notes * Abhilash Wills MD - 11/02/2022 1:30 PM CDT Reason for Visit Today Chief Complaint Spots and/or Floaters ASSESSMENT/ORDERS/PROCEDURES PERFORMED TODAY Problem List Eye/Vision Problems Posterior vitreous detachment, right eye - Primary Current Assessment & Plan Symptoms started 10/23/22. Pt seen in ER with PVD, no holes Exam reassuring today - PVD without holes/tears/breaks Discussed natural course Return 1 month DFE OU Relevant Orders OCT, Retina - OU - Both Eyes (Completed) Retinal tear of left eye Current Assessment & Plan S/p retinopexy 07/2022 Doing well. Well barricaded Relevant Orders OCT, Retina - OU - Both Eyes (Completed) OCT, Retina - OU - Both Eyes Right Eye Quality was good. Scan locations included subfoveal. Left Eye Quality was good. Scan locations included subfoveal. Notes No posterior hyaloid OU, flat OU The signs and symptoms of retinal detachment, tears, infection, elevated intra- ocular pressure werereviewed with the patient. Patient knows to call should they have any of the symptoms. PLAN FOR NEXT VISIT Return for retina 4-6 weeks for DFE OU. documented in this encounter Miscellaneous Notes * Assessment & Plan Note - Abhilash Wills MD - 11/02/2022 2:11 PM CDTAssociated Problem(s): Posterior vitreous detachment, both eyes Symptoms started 10/23/22. Pt seen in ER with PVD, no holes Exam reassuring today - PVD without holes/tears/breaks Discussed natural course Return 1 month DFE OU * Assessment & Plan Note - Abhilash Wills MD - 11/02/2022 2:10 PM CDTAssociated Problem(s): Retinal tear of left eye S/p retinopexy 07/2022 Doing well. Well barricaded documented in this encounter Plan of Treatment Not on file documented as of this encounter Procedures Procedure Name Priority Date/Time Associated Diagnosis Comments OCT, RETINA - OU - BOTH EYES Routine 11/02/2022 2:01 PM CDT Posterior vitreous detachment, right eye Retinal tear of left eye Posterior vitreous detachment of left eye documented in this encounter Results * OCT, Retina - OU - Both Eyes (11/02/2022 2:01 PM CDT) Anatomical Region Laterality Modality Head Optical Coherenc e Tomography Narrative 11/02/2022 2:01 PM CDT Right Eye Quality was good. Scan locations included subfoveal. Left Eye Quality was good. Scan locations included subfoveal. Notes No posterior hyaloid OU, flat OU Abhilash Wills MD OPHTH TOMOGRAPH Y Final Result documented in this encounter Visit Diagnoses Diagnosis Posterior vitreous detachment, right eye- Primary Vitreous degeneration Retinal tear of left eye Posterior vitreous detachment of left eye Vitreous degeneration documented in this encounter Eye Exam Visual Acuity (Snellen - Linear) Right eye Left eye Dist cc 20/20 20/30 +2 Dist ph cc 20/20 - Correction: Glasses Tonometry (Tonopen, 1:25 PM) Right eye Left eye Pressure 17 19 Pupils Dark Light Shape React APD Right eye 5 3 Round Brisk None Left eye 5 3 Round Brisk None Visual Wheeler (Counting fingers) Right eye Left eye Full Full Extraocular Movement Right eye Left eye Full Full Neuro/Psych Oriented x3: Yes Mood/Affect: Normal Dilation Both eyes: 1.0% Mydriacyl, 2 .5% Phenylephrine @ 1:25 PM External Exam Right eye Left eye External Normal Normal Slit Lamp Exam Right eye Left eye Lids/Lashes Normal Normal Conjunctiva/Sclera White and quiet White and ciro et Cornea Clear Clear Anterior Chamber Deep and quiet Deep and quiet Iris Round Round Lens tr NS tr NS, CS Anterior Vitreous PVD (Clark ring), vit syn, Sha jessica's negative PVD Fundus Exam Right eye Left eye Disc Normal Normal C/D Ratio 0.1 0.1 Macula Normal Normal Vessels Normal Normal Periphery Small patch of latti ce temporally , Clark ring horseshoe tear at 5 oclock far periphery s/p barricaded, Laser scar no new tears or detachments Care Teams Employment Clerk Relationship Specialty Start Date End Date Bj Montaño MD PCP - General Family Medicine 04/15/22 02/19/24 Adam English DO An/Syq 13 Nav/C2 Operator Gastroenterology 03/26/19 06/05/23 documented as of this encounter
--- OUTSIDE RECORDS SUMMARY | 2024-05-20 13:08 | XMS_ITS | Encounter Summary ---
Author Organization [facility] Address [address] [place] [address] Phone Care Team Providers Care Refined Syrup Operator Name Role Phone Adam English DO Unavailable [phone] Bj Montaño MD Primary Care Provider [phone] Reason for Referral * Consultation (Routine) - Closed Specialty Diagnoses / Procedures Referred By Sisi de león Referred To Contact Sleep Medicine Diagnoses DON (obstructive sleep apnea) Roosevelt Thomas MD [address] [place] [address] Phone: tel: fax: [facility] (All Locations) Referral ID Status Reason Start Date Expiration Date V isits Requested Visits Authorized [id number] Closed Specialty Services Required 11/24/2022 12/24/2023 1 1 Question Answer Please select the performing region: [facility] (All Locations) [167] # of visits: 1 Comments Evaluate for DON * Procedure (Routine) - Closed Specialty Diagnoses / Procedures Referred By Sisi de león Referred To Contact Diagnoses Dyspnea on exertion Procedures Pulmonary Function Test -[facility] Adult PFT Lab- CAM-8D; Spirometry Roosevelt Thomas MD [address] [place] [address] Phone: tel: fax: Referral ID Status Reason Start Date Expiration Date Visits Re quested Visits Authorized [id number] Closed 11/24/2022 12/24/2023 1 1 Reason for Visit * Pulmonology (Routine) - Closed Specialty Diagnoses / Procedures Referred By Contac t Referred To Contact Pulmonary Disease / Pulmonology Diagnoses Abnormal CT lung screening [facility] [place] [address] Phone: tel: Maxim Tan MD [address] [place] [address] Phone: tel: fax: Referral ID Status Reason Start Date Expiration Date V isits Requested Visits Authorized [id number] Closed Specialty Services Required 08/24/2022 09/23/2023 12 12 Encounter Details Date Type Department Care Team (Late st Contact Info) Description 11/24/2022 8:30 AM CDT Office Visit [facility] Pulmonary [facility] Advanced [facility] 8th [place] [address] [place] [address] Roosevelt Thomas MD [address] [place] [address] Dyspnea on exertion (Primary Dx); Abnormal CT lung screening; DON (obstructive sleep apnea) Social History Tobacco Use Types Packs/Day Years Used Date Smoking Tobacco: Never Smokeless Tobacco: Never Alcohol Use Standard Drinks/Week Comments Not Currently 0 (1 standard drink = 0.6 oz pur e alcohol) Comments No Sex and Gender Information Value Date Recorded Sex Assigned at Not on file Legal Sex Female 2:22 AM BUSINESS ASSISTANT Gender Identity Female 05/18/2019 7:17 PM BUSINESS ASSISTANT Sexual Orientation Straight 05/18/2019 7: 17 PM BUSINESS ASSISTANT documented as of this encounter Last Filed Vital Signs Vital Sign Reading Time Taken Comments Blood Pressure 130/86 11/24/2022 8:21 AM CDT Pulse 77 11/24/2022 8:21 AM CDT Temperature 36.7 ??C (98 ??F) 11/24/2022 8:21 AM CDT Respiratory Rate 16 11/24/2022 8:21 AM CDT Oxygen Saturation 97% 11/24/2022 8:21 AM CDT room air Inhaled Oxygen Concentration - - Weight 134.3 kg (296 lb) 11/24/2022 8:21 AM CDT Height 177.8 cm (5' 10 ) 11/24/2022 8:21 AM CDT Body Mass Index 42.47 11/24/2022 8:21 AM CDT documented in this encounter Ordered Prescriptions Prescription Sig Dispense Quantity Refills Last Filled Start Date End Date budesonide-formoter oL (SYMBICORT) 160-4.5 mcg/actuation inhalerIndications: Maintenance Therapy for Asthma Inhale 2 puffs 2 (two) times a day Rinse mouth with water after use. Do not swallow. 1 each 3 11/24/2022 documented in this encounter Progress Notes * Tevin Huff MD - 11/24/2022 8:30 AM CDT [facility], PULMONARY [facility]IC[facility], [address] [place] [address], [address] FLOOR, [facility], [address] [place], [place] [id number] REASON FOR REFERRAL: SOB HISTORY OF PRESENT ILLNESS: 62F presenting w/ SOB. Patient was diagnosed with COVID in June of 2022. Had symptoms of significant shortness of breath, cough, wheezing, left rib pain, congestion. The symptoms have slowly improved. She now endorses occasional wheezing, occasional shortness of breath when climbing stairs, occasional left rib pain. In the morning, she reports having sensations of tightness and wheezing. She feels that she needs to ???open up?? her airways with a couple deep breaths/sighs. The sensations are relieved within minutes of starting her morning routine. Prior to COVID infection, she is able to walk 1 hour without stopping; or 3-4 flights. Now, she is able to walk 1 hour without stopping at a slower pace; or 2-3 flights. She does report snoring, fatigue. She does report that strong smells in her environment will precipitate shortness of breath and wheezing. Also reports seasonal allergies with rhinorrhea, watery eyes, throat discomfort. Reports sensitive skin with history of rosacea and contact dermatitis. REVIEW OF SYSTEMS: A 12-point review of systems was conducted and was negative aside from what is noted in the Historyof Present Illness. PAST MEDICAL HISTORY: 1. COVID 06/2022 2. BMI 42 3. Anxiety, depression 4. Hypertension 5. GERD 6. NAFLD 7. Recurrent sinus infections, status post sinus surgery during childhood 8. Diverticulitis s/p colectomy 9. Seasonal allergies MEDICATIONS: Current Outpatient Medications on File Prior to Visit Medication Sig Dispense Refill ALPRAZolam (XANAX) 0.25 mg tablet Take 0.25 mg by mouth 3 (three) times a day as needed for anxiety Vitamin D, calcium, zinc cetirizine (ZyrTEC) 10 mg tablet Take 10 mg by mouth as needed for allergies losartan-hydroCHLOROthiazide (HYZAAR) 50-12.5 mg per tablet Pantoprazole psyllium husk (METAMUCIL ORAL) Take 6 Caplet by mouth every morning 6 caps am soy isofla/blk cohosh/mag bark (ESTROVEN ORAL) Take by mouth Unsure med dosage every day hs SUMAtriptan (IMITREX) 100 mg tablet PRN for headaches venlafaxine 225 mg tablet extended release 24hr 24 hr tablet ALLERGIES: Allergies Allergen Reactions Enoxaparin Hives, Itching, Redness and Swelling Penicillins Swelling Inapsine [Droperidol] Anxiety irritability FAMILY HISTORY: Family History Problem Relation Age of Onset Colon cancer Mother 55 Lung cancer (small cell) Mother 59 Hypertension Mother Gallbladder disease Mother Cancer Mother Depression Mother Gallbladder disease Father Diverticulosis Father Heart attack Father fatal day following [facility] Diverticulosis Brother Emphysema Maternal Grandmother Diabetes Maternal Grandmother SOCIAL HISTORY: 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 Smoking: never EtOH: 1 per/ yr Drug use: no PHYSICAL EXAMINATION: Vital Signs: BP 130/86 Pulse 77 Temp 36.7 ??C (98 ??F) (Oral) Resp 16 Ht 177.8 cm (5' 10 ) Wt 134.3 kg (296 lb) SpO2 97% Comment: room air BMI 42.47 kg/m?? GEN: NAD, resting comfortably HEENT: mmm; nc/at NECK: no LAD CV: RRR. No murmurs/rubs/gallops. CHEST: Clear to auscultation bilaterally ABD soft, NDNT EXT: Warm MSK: no joint deformities or synovitis NEURO: grossly nonfocal . DATA: Pulmonary Function Testing 11/24/22 Spirometry FEV1/FVC 80% FEV1 2.78 (96 % predicted) FVC 3.48 (93 % predicted) No bronchodilator change TLC 91% predicted DL/VA 126% predicted Interpretation no obstructive, restriction pattern. No response to bronchodilators. ABG: PH 7.44, PaCO2 39, PO2 84 Chest Xray 11/22/2022: There is bibasilar linear scarring present, unchanged from prior study. Otherwise no airspace opacity or pulmonary edema. No pleural effusion or pneumothorax. CT chest w/o contrast 08/2022: COMPARISON: CT abdomen pelvis 02/23/2019 and 08/15/2018 FINDINGS: Imaged thyroid gland is normal. No axillary, supraclavicular, mediastinal, or hilar lymphadenopathy. The thoracic aorta and main pulmonary artery are normal in caliber. Heart size is normal without pericardial effusion. Minimal coronary artery atherosclerotic calcifications are present. The esophagus is nondistended. The central airways are patent. There is a 5 mm left lower lobe pulmonary nodule (series 3 image 88), unchanged compared to prior examination dated 02/23/2019. No suspicious pulmonary nodule identified. No focal consolidation, pleural effusion, or pneumothorax. There is stable scarring in the right middle lobe and lingula. Imaged portions of the upper abdomen show no acute abnormality. Diffuse hepatic steatosis is partially imaged. Postsurgical changes of cholecystectomy are noted. Degenerative changes noted in the thoracic spine. No suspicious osseous lesion identified. IMPRESSION: 1. Stable scarring in the right middle lobe and lingula. Otherwise, no acute findings in the chest to explain the patient's symptoms. 2. Hepatic steatosis. IMPRESSION: 62-year-old female presenting with shortness of breath and imaging findings. We went over the patient's imaging findings on her CT chest and chest x-ray. The bibasilar linear scarring is likely secondary to a prior pulmonary infection/COVID infection in 06/2022; unlikely to be a major contributor to her shortness of breath. Etiology of her shortness of breath is likely multifactorial and includes deconditioning and obesity. Her history is suspicious for asthma / post-viral reactive airway disease given her seasonal allergies, history of rash, symptoms that can be set off by strong odors. We will start empiric treatment for asthma with Symbicort prn. Stop Bang score was also elevated at 5-6; high as risk of DON. Patient would prefer to be evaluatedhere at [facility]. Will place order for our sleep medicine colleagues to evaluate. Will see her back in approximately 6 months to assess response to empiric Symbicort p.r.n.. If unresponsive, can consider methacholine challenge +/- TTE at that time. PLAN: Start Symbicort p.r.n. Will see back in 6 months Sleep Medicine referral for evaluation of DON Tevin Huff MD PGY4 Cosigned by Roosevelt Thomas MD at 11/29/2022 10:36 PM CDT Associated attestation - Roosevelt Thomas MD - 11/29/2022 10:36 PM CDT I have seen and examined the patient. I agree with the findings and plan of care as documented in the resident/fellow's note. My total encounter time on 11/24/2022 was 40 minutes which was spent in the activities documented in the note. This includes time spent prior to the visit and after the visitin direct care of the patient. This time does not include time spent in any separately reportable services. documented in this encounter Plan of Treatment Scheduled Referrals Name Type Priority Associated Diagnoses Order Schedule Ambulatory referral to Sleep Medicine Outpatient Referral Routine DON (obstructive sleep apnea) Expected: 12/08/2022 (Approximate), Expires: 11/25/2023 documented as of this encounter Results * Pulmonary Function Test - (06/06/2023 8:56 AM BUSINESS ASSISTANT) FVC PRE 3.37 L [facility] FVC %PRE PRED 91 % [facility] FEV1 PRE 2.72 L [facility] FEV1 %PRE PRED 96 % [facility] FEV1/FVC PRE 80.9 % [facility] Anatomical Region Laterality Modality PFT 06/06/2023 8:48 AM BUSINESS ASSISTANT Impressions 06/06/2023 9:29 AM BUSINESS ASSISTANT There is no ventilatory defect. Compared with [...] and %HbO2 is age dependent. However, the [facility] Pulmonary Function Laboratory defines hypoxemia as a PO2 <55 or a %HbO2 <89. Narrative 06/06/2023 9:29 AM BUSINESS ASSISTANT Schedule with next visit PFT performed at:->[facility] Adult PFT Lab- CAM-8D Procedure:->Spirometry Pulmonary Function Test Interpretation SPIROMETRY: Spirometry is within normal limits. FLOW VOLUME LOOPS: The flow volume loop is normal Roosevelt Thomas MD PFT ORDERABLES Final Result documented in this encounter Visit Diagnoses Diagnosis Dyspnea on exertion- Primary Other dyspnea and respiratory abnormality Abnormal CT lung screening Nonspecific (abnormal) findings on radiological and other examination of other intrathoracic organs DON (obstructive sleep apnea) Obstructive sleep apnea (adult) (pediatric) Dyspnea on exertion Other dyspnea and respiratory abnormality documented in this encounter Discontinued Medications Medication Sig Discontinue Reason Start Date End Da te ondansetron (ZOFRAN) 4 mg tabletIndications:Acute gastroenteritis Take 1 tablet (4 mg total) by mouth every 8 (eight) hours as needed for nausea or vomiting 05/12/2022 11/24/2022 L gasseri/B bifidum/B longum ([facility] ORAL) Take 1 tablet by mouth every morning [facility] every day unsure med dosage 11/24/2022 lutein 20 mg tablet Take 1 tablet by mouth nightly hs 11/24/2022 lfaardg-wpubrqtka-zwpj tablet Take 1 tablet by mouth nightly 1000mg/400mg/15mg every day 11/24/2022 documented as of this encounter Historical Medications * This list may reflect changes made after this encounter. azelaic acid 15 % gel APPLY TOPICALLY TO THE AFFECTED AREA TWICE DAILY 11/18/2022 sucralfate (CARAFATE) suspension 1 gram/10 mL Have not started yet has to berry picker machine operator script 11/23/[address] (PROTONIX) 40 mg EC tablet TAKE 1 TABLET BY MOUTH EVERY MORNING FOR 4 WEEKS 10/19/2022 3 added in this encounter Orders Outpatient Referral Count Last Ordered Date Fir st Ordered Date AMB REFERRAL TO PULMONOLOGY 1 11/24/2022 documented in this encounter Care Teams Refined Syrup Operator Relationship Specialty Start Date End Date Bj Montaño MD PCP - General Family Medicine 04/15/22 02/19/24 Adam English DO Coffee Machine Technician Gastroenterology 03/26/19 06/05/23 documented as of this encounter
--- OUTSIDE RECORDS SUMMARY | 2024-05-20 13:08 | XMS_ITS | Encounter Summary ---
Author Organization [facility] Address [address] [place] [address] Phone Care Team Providers Care Mobile Lounge Driver Or Operator Name Role Phone Adam English DO Unavailable [phone] Bj Montaño MD Primary Care Provider [phone] Encounter Details Date Type Department Care Team (Late st Contact Info) Description 10/24/2022 Telephone [facility] Ophthalmology [address] [place] [address] 1st [place] [address] Gosia Aguilar MD [address] [facility] [id number] [place] [address] Social History Tobacco Use Types Packs/Day Years Used Date Smoking Tobacco: Never Smokeless Tobacco: Never Alcohol Use Standard Drinks/Week Comments Not Currently 0 (1 standard drink = 0.6 oz pur e alcohol) Comments No Sex and Gender Information Value Date Recorded Sex Assigned at Not on file Legal Sex Female 2:22 AM MOLDING MACHINE SETTER Gender Identity Female 05/18/2019 7:17 PM MOLDING MACHINE SETTER Sexual Orientation Straight 05/18/2019 7: 17 PM MOLDING MACHINE SETTER documented as of this encounter Miscellaneous Notes * Telephone Encounter - Gosia Aguilar MD - 10/24/2022 6:06 AM CDT Patient called after hours emergency line stating that in her right eye she has started to experience flashes of light and floaters in her vision. Reports that similar symptoms occurred in the left eye and was found to have a retinal tear s/p retinopexy. Advised patient to present to [facility] for further ophthalmology evaluation and patient is in agreeance and will plan to present. documented in this encounter Plan of Treatment Not on file documented as of this encounter Visit Diagnoses Not on filedocumented in this encounter Care Teams Mobile Lounge Driver Or Operator Relationship Specialty Start Date End Date Bj Montaño MD PCP - General Family Medicine 04/15/22 02/19/24 Adam English DO Mechanism Assembler Gastroenterology 03/26/19 06/05/23 documented as of this encounter
--- OUTSIDE RECORDS SUMMARY | 2024-05-20 13:08 | XMS_ITS | Encounter Summary ---
Author Organization [facility] Address [address] [facility] [address] [place] [address] Care Team Providers Care Cushion Stuffer Name Role Phone RoemojganAdam Erik DO Unavailable [phone] Bj Montaño MD Primary Care Provider [phone] Reason for Visit * Diagnostic Imaging (Routine) - Closed Specialty Diagnoses / Procedures Referred By Sisi de león Referred To Contact Diagnoses Pain Procedures XR Chest PA Lateral 2 Views jB Montaño MD Phone: tel: fax: [facility] Referral ID Status Reason Start Date Expiration Date Visits Re quested Visits Authorized [id number] Closed 07/27/2022 08/26/2023 1 1 Encounter Details Date Type Department Care Team (Late st Contact Info) Description 07/27/2022 10:30 AM CDT Ancillary Procedure [facility] Imaging at [address] [address] Pain Social History Tobacco Use Types Packs/Day Years Used Date Smoking Tobacco: Never Smokeless Tobacco: Never Alcohol Use Standard Drinks/Week Comments Not Currently 0 (1 standard drink = 0.6 oz pur e alcohol) Comments No Sex and Gender Information Value Date Recorded Sex Assigned at Not on file Legal Sex Female 2:22 AM WATERSHED PROGRAM MANAGER Gender Identity Female 05/18/2019 7:17 PM WATERSHED PROGRAM MANAGER Sexual Orientation Straight 05/18/2019 7: 17 PM WATERSHED PROGRAM MANAGER documented as of this encounter Plan of Treatment Not on file documented as of this encounter Procedures Procedure Name Priority Date/Time Associated Diagnosis Comments XR CHEST PA LATERAL 2 VIEWS Schedule Routine, Read Routine (OP Routine) 07/27/2022 10:33 AM CDT Pain documented in this encounter Results * XR Chest PA Lateral 2 Views (07/27/2022 10:33 AM CDT) Anatomical Region Laterality Modality Body, Chest N/A Digital Radiogra phy 07/28/2022 4:00 PM CDT Narrative 07/28/2022 4:12 PM CDT EXAM DESCRIPTION: ?? XR CHEST PA LATERAL 2 VIEWS REASON FOR STUDY: ?? preMRI, check the PM and Leads ?? Pt complains of SOB since COVID + 06/22/22. No surgery heart, lungs, or chest. Non-smoker. History of bronchitis. ? TECHNIQUE: PA and lateral ??radiographic views of the chest acquired. COMPARISON: ?? July 19, 2022 FINDINGS: LUNGS/PLEURA: ?? Streaky bibasilar opacities are unchanged and/or most likely represent scarring and atelectasis. ??Otherwise, no acute focal consolidation or pneumothorax. No pleural effusion. HEART/MEDIASTINUM: ?? Heart size is normal. Normal mediastinal and hilar contours. HARDWARE/LINES/TUBES: ?? None. BONES: ?? No acute findings. OTHER: ?? No other significant finding. IMPRESSION: ?Streaky bibasilar opacities are unchanged and most likely represent scarring and/or atelectasis. ??Otherwise, no acute focal consolidation or pneumothorax. No pleural effusion. ?? THIS IS AN ELECTRONICALLY VERIFIED FINAL REPORT 07/28/2022 4:12 PM - Electronically signed by ??Moi ARIAS D: ??07/28/2022 4:12 PM T: Report ID: [id number] Reading Location: ??[id number] Procedure Note oMi Barragan MD - 07/28/2022 EXAM DESCRIPTION: XR CHEST PA LATERAL 2 VIEWS REASON FOR STUDY: preMRI, check the PM and Leads Pt complains of SOB since COVID + 2/8/23. No surgery heart, lungs, orchest. Non-smoker. History of bronchitis. TECHNIQUE: PA and lateral radiographic views of the chest acquired. COMPARISON: July 19, 2022 FINDINGS: LUNGS/PLEURA: Streaky bibasilar opacities are unchanged and/or most likely represent scarring and atelectasis. Otherwise, no acute focal consolidation or pneumothorax. No pleural effusion. HEART/MEDIASTINUM: Heart size is normal. Normal mediastinal and hilar contours. HARDWARE/LINES/TUBES: None. BONES: No acute findings. OTHER: No other significant finding. IMPRESSION: Streaky bibasilar opacities are unchanged and most likely represent scarring and/or atelectasis. Otherwise, no acute focal consolidation or pneumothorax. No pleural effusion. THIS IS AN ELECTRONICALLY VERIFIED FINAL REPORT 07/28/2022 4:12 PM - Electronically signed by Moi Barragan M.D. RB T: Report ID: [id number] Reading Location: [place] [address] Bj Montaño MD IMG XR PROCEDURES Final Result documented in this encounter Visit Diagnoses Diagnosis Pain Generalized pain documented in this encounter Additional Health Concerns Infection Onset Date Last Indicated Resolved Time COVID: Recovered Comment:Added based on recent COVID infection. 07/02/2022 07/04/2022 09/30/2022 3:05 AM C DT documented as of this encounter Care Teams Cushion Stuffer Relationship Specialty Start Date End Date Bj Montaño MD PCP - General Family Medicine 04/15/22 02/19/24 Adam English DO Agriculture Professor Gastroenterology 03/26/19 06/05/23 documented as of this encounter
--- OUTSIDE RECORDS SUMMARY | 2024-05-20 13:08 | XMS_ITS | Encounter Summary ---
Author Organization [facility] Address [address] [place] [address] Phone Care Team Providers Care Millinery Copyist Name Role Phone Adam English DO Unavailable [phone] Bj Montaño MD Primary Care Provider [phone] Odilon Chester MD Unavailable Roosevelt Thomas MD Unavailable Encounter Details Date Type Department Care Team (Late st Contact Info) Description 10/24/2022 Ophth Exam [facility] Ophthalmology [address] [place] [address] 1st [place] [address] Pepper Carey MD [address] [facility] [id number] [place] [address] Social History Tobacco Use Types Packs/Day Years [...] on file Legal Sex Female 2:22 AM LUSTER REPAIRER Gender Identity Female 05/18/2019 7:17 PM LUSTER REPAIRER Sexual Orientation Straight 05/18/2019 7: 17 PM LUSTER REPAIRER documented as of this encounter Plan of Treatment Not on file documented as of this encounter Visit Diagnoses Not on filedocumented in this encounter Eye Exam Visual Acuity (Snellen - Linear) Right eye Left eye Near cc 20/20-2 20/20 Tonometry (Tonopen, 10:13 AM) Right eye Left eye Pressure 21 22 Pupils Dark Light Shape React APD Right eye 6 3 Round Brisk None Left eye 6.5 3.5 Round Brisk None Visual Wheeler (Counting fingers) Right eye Left eye Full Full Extraocular Movement Right eye Left eye Full Full Neuro/Psych Oriented x3: Yes Mood/Affect: Normal Dilation Both eyes: 1.0% Mydriacyl, 2 .5% Phenylephrine @ 10:10 AM External Exam Right eye Left eye External Normal Normal Slit Lamp Exam Right eye Left eye Lids/Lashes Normal Normal Conjunctiva/Sclera White and quiet White and ciro et Cornea Clear Clear Anterior Chamber Deep and quiet Deep and quiet Iris Round and reactive Round and lisset ctive Lens tr NS tr NS, CS Fundus Exam Right eye Left eye Posterior Vitreous PVD (Clark ring), vi t syn, Freddy's negative PVD Disc Normal Normal C/D Ratio 0.1 0.1 Macula Normal Normal Vessels Normal Normal Periphery Normal horseshoe tear a t 5 oclock far periphery s/p barricaded, Laser scar no new tears or detachments Care Teams Millinery Copyist Relationship Specialty Start Date End Date Bj Montaño MD PCP - General Family Medicine 04/15/22 02/19/24 Adam English DO Musician Instrumental Gastroenterology 03/26/19 06/05/23 Odilon Chester MD [address] [place] [address] Referring Physician Gastroenterology 06/06/23 Roosevelt Thomas MD [address] [facility] [address] Fellow Pulmonary Disease 06/06/23 documented as of this encounter
--- OUTSIDE RECORDS SUMMARY | 2024-05-20 13:08 | XMS_ITS | Encounter Summary ---
Author Organization [facility] Address [address] [facility] [address] [place] [address] Care Team Providers Care Surveyor Oil Well Directional Name Role Phone Adam English DO Unavailable [phone] Bj Montaño MD Primary Care Provider [phone] Reason for Visit * Reason Comments Urinary Symptom This morning, increa sed frequency, feels like cramping in lower abdomin, burning at the end of her stream, and blood when she wipes Encounter Details Date Type Department Care Team (Late st Contact Info) Description 07/18/2022 10:00 AM PERSONAL LINES ADVISOR Office Visit [facility] Outpatient Center [address] [address] Jacqueline Clark NP [address] [place] [address] [address] [place] [address] Acute cystitis with hematuria (Primary Dx) Social History Tobacco Use Types Packs/Day Years Used Date Smoking Tobacco: Never Smokeless Tobacco: Never Alcohol Use Standard Drinks/Week Comments Not Currently 0 (1 standard drink = 0.6 oz pur e alcohol) Comments No Sex and Gender Information Value Date Recorded Sex Assigned at Not on file Legal Sex Female 2:22 AM PERSONAL LINES ADVISOR Gender Identity Female 05/18/2019 7:17 PM PERSONAL LINES ADVISOR Sexual Orientation Straight 05/18/2019 7: 17 PM PERSONAL LINES ADVISOR documented as of this encounter Last Filed Vital Signs Vital Sign Reading Time Taken Comments Blood Pressure 156/93 07/18/2022 9:49 AM PERSONAL LINES ADVISOR Pulse 94 07/18/2022 9:49 AM PERSONAL LINES ADVISOR Temperature 36.9 ??C (98.4 ??F) 07/18/2022 9:49 AM CS T Respiratory Rate 20 07/18/2022 9:49 AM PERSONAL LINES ADVISOR Oxygen Saturation 97% 07/18/2022 9:49 AM PERSONAL LINES ADVISOR Inhaled Oxygen Concentration - - Weight 133.9 kg (295 lb 3.2 oz) 07/18/2022 9:49 AM PERSONAL LINES ADVISOR Height 177.8 cm (5' 10 ) 07/18/2022 9:49 AM PERSONAL LINES ADVISOR Body Mass Index 42.36 07/18/2022 9:49 AM PERSONAL LINES ADVISOR documented in this encounter Patient Instructions * Patient Instructions* Jacqueline Clark NP - 07/18/2022 10:00 AM PERSONAL LINES ADVISOR Treatment of urinary symptoms: Take your prescribed antibiotic until it is gone. It is important to read the information provided by your pharmacist about the medications you are being prescribed. -You can take AZO (over the counter) for urinary pain- use directed per package instructions- Be aware this will turn your urine orange. To prevent UTI in the future: Increase your water intake to help flush bacteria from your bladder. Urine should be clear or nearly clear. Attempt to empty your bladder every 2-3 hours and do not hold urine for long periods of time. Make sure to always wipe from front to back after urinating. Avoid citrus juices, caffeine, alcohol, and intercourse (bladder irritants) until your symptoms resolve and treatment is complete. Void before and after intercourse. Avoid tight-fitting jeans as they can trap moisture and help bacteria grow. Cotton underwear and loose-fitting clothes should be worn. Call your PRIMARY CARE PROVIDER should your symptoms fail to improve or worsen. GO TO ER IMMEDIATELY WITH HIGH FEVER, BACK OR FLANK PAIN, NEW ONSET OF BLOOD IN URINE, OR ANY WORSENING OF CURRENT SYMPTOMS Seek care (go to Urgent Care or ER) immediately if: You are urinating very little or not at all. You are vomiting. You have a high fever with shaking chills. You have side or back pain that gets worse. Contact your primary care doctor or GALVANIZING POT RUNNER if: You have a fever. You have white or yellow discharge from your vagina. You do not feel better after 2 days of taking antibiotics. You have questions or concerns about your condition or care ONAL LINES ADVISOR * Attachments The following attachments cannot be sent through Care Everywhere. * Urinary Tract Infection in Women (Detective) (Russian) documented in this encounter Ordered Prescriptions Prescription Sig Dispense Quantity Refills Last Filled Start Date End Date nitrofurantoin monohydrate (Macrobid) 100 mg capsuleIndications :Urinary Tract/Genitourinar y Infection Take 1 capsule (100 mg total) by mouth 2 (two) times a day for 5 days 10 capsule 07/18/2022 3 documented in this encounter Progress Notes * Jacqueline Clark NP - 07/18/2022 10:00 AM CST Images from the original note were not included. Patient ID: Josy Fiore is a 62 y.o. female followed by Bj Montaño MD Chief Complaint Patient presents with Urinary Symptom This morning, increased frequency, feels like cramping in lower abdomin, burning at the end of her stream, and blood when she wipes Patient presents to the clinic with reports of burning with urination, urine frequency, blood in urine, urinary hesitancy, and urinary urgency that started this morning. Denies fevers, abdominal pain, flank pain, chills, and vomiting. She has taken no OTC medications for her symptoms. Difficulty Urinating This is a recurrent problem. The current episode started today. The problem occurs every urination.The problem has been rapidly worsening. The quality of the pain is described as aching and burning.The pain is at a severity of 5/10. There has been no fever. She is Not sexually active. There is Nohistory of pyelonephritis. Associated symptoms include frequency, hematuria, hesitancy and urgency.Pertinent negatives include no chills, flank pain, nausea, possible , sweats or vomiting. Review of Systems Constitutional: Negative for chills and fever. Respiratory: Negative. Cardiovascular: Negative. Gastrointestinal: Negative for abdominal pain, diarrhea, nausea and vomiting. Genitourinary: Positive for dysuria, frequency, hematuria, hesitancy and urgency. Negative for difficulty urinating, flank pain, pelvic pain, vaginal bleeding and vaginal discharge. Neurological: Negative for headaches. Vitals: 07/18/22 0949 BP: 156/93 BP Location: Right arm Patient Position: Sitting Pulse: 94 Resp: 20 Temp: 36.9 ??C (98.4 ??F) TempSrc: Oral SpO2: 97% Weight: 133.9 kg (295 lb 3.2 oz) Height: 177.8 cm (5' 10 ) Recent Results (from the past 24 hour(s)) POCT urinalysis dipstick Collection Time: 07/18/22 10:08 AM Result Value Ref Range Color, Urine, POC Yellow Clarity, ur, POC Clear Clear Glucose, ur, POC Negative Negative MG/DL Bilirubin, ur, POC Negative Negative, Small, Moderate, Large Ketones, ur, POC Negative Negative Specific Laurel, POC 1.020 1.005 - 1.030 Blood, ur, POC Small (A) Negative pH, ur, POC 6.5 5.0 - 8.0 Protein, ur, POC Negative Negative Urobilinogen, urine, POC 0.2 0.2 - 1.0 mg/dL Nitrite, ur, POC Negative Negative Leukocytes, ur, POC Small (A) Negative Lot Number [id number] Physical Exam Vitals reviewed. Constitutional: General: She is not in acute distress. Appearance: Normal appearance. She is not ill-appearing. HENT: Head: Normocephalic. Cardiovascular: Rate and Rhythm: Normal rate and regular rhythm. Pulmonary: Effort: Pulmonary effort is normal. Breath sounds: Normal breath sounds. Abdominal: General: Bowel sounds are normal. There is no distension. Palpations: Abdomen is soft. Tenderness: There is no abdominal tenderness. There is no right CVA tenderness, left CVA tendernessor guarding. Skin: General: Skin is warm. Neurological: Mental Status: She is alert and oriented to person, place, and time. Psychiatric: Behavior: Behavior is cooperative. Diagnoses and all orders for this visit: Acute cystitis with hematuria (Primary) - POCT urinalysis dipstick - Urine culture Urine, clean voided; Future Orders Placed This Encounter Procedures Urine culture Urine, clean voided Standing Status: Future Standing Expiration Date: 07/19/2023 POCT urinalysis dipstick Assessment/Plan # acute cystitis with hematuria --ddx: pyelonephritis v renal calculi --start Macrobid. Sent Urine culture --Discussed importance of compliance of antibiotics and possibility of change depending on culture results and susceptibilities --start Pyridium, discussed side effects specifically urine discoloration --likely not pyelo given no CVA tenderness; likely not calculi 2/2 absence of pain, dehydration --void before and after sexual intercourse and wipe front to back post-void --avoid alcohol, caffeine and citrus juices as this can cause irritation --monitor urine for foul odor, color change, hematuria, cloudiness, change in frequency or urgency --symptoms warranting ED presentation: chest tightness, SOB, inability to maintain oral intake, confusion, fever greater than 100.9 ?? for more than 4 hours w/o improvement w/ antipyretics --f/u with PCP if symptoms do not improve in 5-7 days Disposition Treatment plan including expectations, follow up, and return precautions discussed with patient/parent, verbalizes understanding. Medication dosage, use, and potential adverse reactions discussed with patient/parent. Advised to follow up with PCP if symptoms do not resolve as expected or sooner if condition worsens. Discussed Signs/symptoms warranting ER evaluation including worsening fever, increased shortness ofbreath, chest pain, severe N/V/D, or any other worrisome symptoms Patient and/or guardian was given an opportunity to ask questions, questions answered. Patient Education Treatment of urinary symptoms: Take your prescribed antibiotic until it is gone. It is important to read the information provided by your pharmacist about the medications you are being prescribed. -You can take AZO (over the counter) for urinary pain- use directed per package instructions- Be aware this will turn your urine orange. To prevent UTI in the future: Increase your water intake to help flush bacteria from your bladder. Urine should be clear or nearly clear. Attempt to empty your bladder every 2-3 hours and do not hold urine for long periods of time. Make sure to always wipe from front to back after urinating. Avoid citrus juices, caffeine, alcohol, and intercourse (bladder irritants) until your symptoms resolve and treatment is complete. Void before and after intercourse. Avoid tight-fitting jeans as they can trap moisture and help bacteria grow. Cotton underwear and loose-fitting clothes should be worn. Use alternate method of control while taking antibiotics and for one week after finishing antibiotics. Call your PRIMARY CARE PROVIDER should your symptoms fail to improve or worsen. GO TO ER IMMEDIATELY WITH HIGH FEVER, BACK OR FLANK PAIN, NEW ONSET OF BLOOD IN URINE, OR ANY WORSENING OF CURRENT SYMPTOMS Seek care (go to Urgent Care or ER) immediately if: You are urinating very little or not at all. You are vomiting. You have a high fever with shaking chills. You have side or back pain that gets worse. Contact your primary care doctor or GALVANIZING POT RUNNER if: You have a fever. You have white or yellow discharge from your vagina. You do not feel better after 2 days of taking antibiotics. You have questions or concerns about your condition or care Jacqueline Clark NP ONAL LINES ADVISOR documented in this encounter Plan of Treatment Not on file documented as of this encounter Procedures Procedure Name Priority Date/Time Associated Diagnosis Comments POCT URINALYSIS DIPSTICK Routine 07/18/2022 10:08 AM PERSONAL LINES ADVISOR Acute cystitis with hematuria documented in this encounter Results * Urine culture Urine, clean voided (07/18/2022 5:00 PM PERSONAL LINES ADVISOR) Report Final Report: Less than 100,000 colonies/mL (clinically insignificant growth based on current clinical standards) BRITTANY RIVERA Comment:Testing performed by : [facility], [address] [place] [address] Organism (CLINICALLY INSIGNIFICANT GROWTH BRITTANY Urine, clean voided 07/18/2022 5:00 PM PERSONAL LINES ADVISOR 07/19/2022 3:32 AM PERSONAL LINES ADVISOR Narrative BRITTANY - 07/20/2022 7:51 AM PERSONAL LINES ADVISOR Testing performed by [facility] ([phone]) us Jacqueline Clark NP LAB MICROBIOLOGY - GENERAL ORD ERABLES Final Result BRITTANY RIVERA [id number] [place] [address] * (ABNORMAL) POCT urinalysis dipstick (07/18/2022 10:08 AM PERSONAL LINES ADVISOR) Color, Urine, POC Yellow Clarity, ur, POC Clear Clear Glucose, ur, POC Negative Negative MG/DL Bilirubin, ur, POC Negative Negative, Small, Moderate, Large Ketones, ur, POC Negative Negative Specific Laurel, POC 1.020 1.005 - 1.030 Blood, ur, POC Small(A) Negative pH, ur, POC 6.5 5.0 - 8.0 Protein, ur, POC Negative Negative Urobilinogen, urine, POC 0.2 0.2 - 1.0 mg/dL Nitrite, ur, POC Negative Negative Leukocytes, ur, POC Small(A) Negative Lot Number [id number] Urine 07/18/2022 10:0 8 AM PERSONAL LINES ADVISOR Jacqueline Clark NP POINT OF CARE TEST ORDERABLES Final Result documented in this encounter Visit Diagnoses Diagnosis Acute cystitis with hematuria- Primary Acute cystitis with hematuria documented in this encounter Additional Health Concerns Infection Onset Date Last Indicated Resolved Time COVID: Recovered Comment:Added based on recent COVID infection. 07/02/2022 07/04/2022 09/30/2022 3:05 AM C DT documented as of this encounter Care Teams Surveyor Oil Well Directional Relationship Specialty Start Date End Date Bj Montaño MD PCP - General Family Medicine 04/15/22 02/19/24 Adam English DO Dishtank Operator Gastroenterology 03/26/19 06/05/23 documented as of this encounter
--- OUTSIDE RECORDS SUMMARY | 2024-05-20 13:08 | XMS_ITS | Encounter Summary ---
Author Organization [facility] Address [address] [place] [address] Care Team Providers Care Diagnostic Medical Sonographer Name Role Phone Adam English DO Unavailable [phone] Bj Montaño MD Primary Care Provider [phone] Reason for Visit * Reason Onset Date Comments Covid-19 Home Monitoring 06/26/2022 Encounter Details Date Type Department Care Team (Late st Contact Info) Description 06/26/2022 Telephone [facility] Accountable Care Organization [address] [place] [address] Jocelyn Somers LPN [address] [place] [address] Covid-19 Home Monitoring Social History Tobacco Use Types Packs/Day Years Used Date Smoking Tobacco: Never Smokeless Tobacco: Never Alcohol Use Standard Drinks/Week Comments Not Currently 0 (1 standard drink = 0.6 oz pur e alcohol) Comments No Sex and Gender Information Value Date Recorded Sex Assigned at Not on file Legal Sex Female 2:22 AM DEMOGRAPHER Gender Identity Female 05/18/2019 7:17 PM DEMOGRAPHER Sexual Orientation Straight 05/18/2019 7: 17 PM DEMOGRAPHER documented as of this encounter Miscellaneous Notes * Telephone Encounter - Jocelyn Gann LPN - 06/26/2022 3:32 PM DEMOGRAPHER This patient is enrolled in the COVID-19 Home Monitoring Program and had not responded to the dailysymptom questionnaire. Telephonic outreach attempted to assess patient???s symptoms. Home Monitoring symptom questionnaire was not completed today, because the patient could not be reached. Symptom Questionnaire to be completed by patient tomorrow. GRAPHER documented in this encounter Plan of Treatment Not on file documented as of this encounter Visit Diagnoses Not on filedocumented in this encounter Additional Health Concerns Infection Onset Date Last Indicated Resolved Time COVID19 06/22/2022 06/22/2022 07/02/2022 3:05 AM DEMOGRAPHER documented as of this encounter Care Teams Diagnostic Medical Sonographer Relationship Specialty Start Date End Date Bj Montaño MD PCP - General Family Medicine 04/15/22 02/19/24 Adam English DO Mechanical Cad Drafter Gastroenterology 03/26/19 06/05/23 documented as of this encounter
--- OUTSIDE RECORDS SUMMARY | 2024-05-20 13:08 | XMS_ITS | Encounter Summary ---
Author Organization [facility] Address [address] [place] [address] Phone Care Team Providers Care Speech Lang Path Name Role Phone Adam English DO Unavailable [phone] Bj Montaño MD Primary Care Provider [phone] Encounter Details Date Type Department Care Team (Late st Contact Info) Description 10/24/2022 Telephone [facility] Ophthalmology [address] [place] [address] 1[address] [place] [address] Pepper Carey MD [address] [facility] [id number] [place] [address] Social History Tobacco Use Types Packs/Day Years Used Date Smoking Tobacco: Never Smokeless Tobacco: Never Alcohol Use Standard Drinks/Week Comments Not Currently 0 (1 standard drink = 0.6 oz pur e alcohol) Comments No Sex and Gender Information Value Date Recorded Sex Assigned at Not on file Legal Sex Female 2:22 AM FISHER DIVING Gender Identity Female 05/18/2019 7:17 PM FISHER DIVING Sexual Orientation Straight 05/18/2019 7: 17 PM FISHER DIVING documented as of this encounter Miscellaneous Notes * Telephone Encounter - Pepper Carey MD - 10/24/2022 7:15 PM CDT Please call to schedule in [facility] with MD/resident on 11/02 for DFEx OU, OCT mac. Seen in ED forsymptomatic PVD. Ok to overbook per Dr. Jean. documented in this encounter Plan of Treatment Not on file documented as of this encounter Visit Diagnoses Not on filedocumented in this encounter Care Teams Speech Lang Path Relationship Specialty Start Date End Date Bj Montaño MD PCP - General Family Medicine 04/15/22 02/19/24 Adam English DO Microbiology Soil Scientist Gastroenterology 03/26/19 06/05/23 documented as of this encounter
--- OUTSIDE RECORDS SUMMARY | 2024-05-20 13:08 | XMS_ITS | Encounter Summary ---
Author Organization [facility] Healthcare Address [address] [place] [address] Care Team Providers Care Asphalt Roller Person Name Role Phone Adam English DO Unavailable [phone] Bj Montaño MD Primary Care Provider [phone] Reason for Visit * Reason Onset Date Comments COVID-19 EVALUATION 06/23/2022 Encounter Details Date Type Department Care Team (Late st Contact Info) Description 06/23/2022 Telephone [facility] [address] [place] [address] Room 3420 (Third Floor) [place] [address] Domenica Reid RN COVID-19 EVALUATION Social History Tobacco Use Types Packs/Day Years Used Date Smoking Tobacco: Never Smokeless Tobacco: Never Alcohol Use Standard Drinks/Week Comments Not Currently 0 (1 standard drink = 0.6 oz pur e alcohol) Comments No Sex and Gender Information Value Date Recorded Sex Assigned at Not on file Legal Sex Female 2:22 AM PARAGLIDING INSTRUCTOR Gender Identity Female 05/18/2019 7:17 PM PARAGLIDING INSTRUCTOR Sexual Orientation Straight 05/18/2019 7: 17 PM PARAGLIDING INSTRUCTOR documented as of this encounter Miscellaneous Notes * Telephone Encounter - Domenica Tuttle RN - 06/23/2022 8:26 AM CST Employee COVID-19 Screening 12/26/2019 06/23/2022 Email: [email or web address] Employee/Student ID# [id number] Are you an employee or student? Employee Employee Employer: [employer] Are you 100% FELISHA? - No Employee Facility: [facility] Are you okay receiving positive results and further instructions via email? 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 [facility] Catering Barista/Pomologist name and email address: [email or web address] Are you considered to be severely immunocompromised? - No Have you had a vaccine within the past 48 hours? - No Have you been vaccinated against Covid-19? - Yes Series: - full initial series Year of most recent booster: - 2021 Have you tested positive for COVID in the past 60 days? - Yes Date of most recent positive test: - 06/22/2022 Date of test comment - clinic test at [facility] Have you had a known, specific Covid exposure within the last 14 days? Unknown Unknown Work-Related Exposure Comment - [facility]- uses same bathroom as patients Description of exposure: Fellow staff member who was cleared after COVID-19 infection, came back towork and sent home same day with fever not quite two weeks ago; Josy works at [employer] and individuals coming for testing have been in halls and using restrooms - Employee Symptoms: Yes Yes Date of employee symptom onset: 12/23/2019 06/21/2022 Description of Symptoms: Fever;Sore Throat;Other;Joint Aches;Muscle Aches;New Diarrhea Headache;Sore Throat;Body Aches;Other Temperature: 99.4 - Did you work on site 48 hours prior to symptom onset and/or any days while symptomatic? - Yes Which department? - [facility] Were you unmasked within 6 ft for longer than 15 minutes from another employee those days? - Yes Which date(s) did the employee work while symptomatic? - 06/20/22, 06/21/22 Name of employee(s): - [email or web address] Abbi Costa Plan: (A) Stay home and test (A) Stay home and test for symptoms Testing Site Location: - 06/22/22 positive COVID-19 test at [facility] CC- started on [employer] Notes: - Script A reviewed. [employer] sent. RTW email and close contact emails sent. Understanding verbalized. Script A0 (stay home and test) for symptomatic employees (HCW and Non-HCW) Thank you for calling the Employee COVID-19 Call Center. This email contains the same information and recommendations discussed during your call. You should also forward this information to your gambling floor supervisor as confirmation. Given your symptoms, you should not come to work and will be referred for combined COVID/Influenza testing. Or, if you have had a COVID infection in the past 2 months, you will be tested for influenza only. If you are at work on site, you must leave work now. Notify your gambling floor supervisor that you have been directed to do so by the Occupational Health Employee COVID-19 Call Center. Please go to the employee testing site as directed for your test. They should be expecting you; if there is any confusion, please call us at [phone]. While you are awaiting testing and results, you must remain off work. You should isolate yourself at home, avoid contact with any household members as much as possible, and stay in your home without leaving except for medical care. You should let your gambling floor supervisor know that you will not be coming to work. Although we will email your gambling floor supervisor to confirm this, it is still your responsibility to notify your gambling floor supervisor as you wouldfor any other work absence. If you have the option to electric utility lineworker and you feel well enough, it must be approved by your gambling floor supervisor We will notify you of your test results, which are usually available within 24- 48 hours. Your results will also post to your [facility] My Chart account ([email or web address]). All further communication, including test results and guidance on returning to work, will be through the email you provided us during your screening. You must follow any additional isolation or quarantine instructions provided to you by federal, state, or local health authorities. If you have questions about home quarantine, please see the attached information sheet. Employees, faculty, staff, and students of [facility] and may be eligible for research studies about COVID-19 including prevention, treatment, antibody levels, and plasma donation. If interested, click this direct link_[email or web address]/studies/search_results?utf8=%E2%[email or web address]&search% 5Bkeywords%5D=employee&commit= or visit [email or web address]://studysearch.[email or web address]/ and enter employee in the search bar. GLIDING INSTRUCTOR documented in this encounter Plan of Treatment Not on file documented as of this encounter Visit Diagnoses Not on filedocumented in this encounter Additional Health Concerns Infection Onset Date Last Indicated Resolved Time COVID19 06/22/2022 06/22/2022 07/02/2022 3:05 AM PARAGLIDING INSTRUCTOR documented as of this encounter Care Teams Asphalt Roller Person Relationship Specialty Start Date End Date Bj Montaño MD PCP - General Family Medicine 04/15/22 02/19/24 Adam English DO Rural Health Consultant Gastroenterology 03/26/19 06/05/23 documented as of this encounter
--- OUTSIDE RECORDS SUMMARY | 2024-05-20 13:08 | XMS_ITS | Encounter Summary ---
Author Organization [facility] Address [address] [place] [address] Phone Care Team Providers Care Telegraphic Typewriter Operator Chief Name Role Phone Adam English DO Unavailable [phone] Bj Montaño MD Primary Care Provider [phone] Reason for Referral * Procedure (Routine) - Closed Specialty Diagnoses / Procedures Referred By Sisi de león Referred To Contact Diagnoses Abnormal CT scan Procedures Pulmonary Function Test -[facility] Adult PFT Lab- CAM-8D; Oxygen Assessment Titration, Spirometry, Spirometry with Bronchodilator, ABG, Lung Volumes, DLCO; Pleth with Airway Resistance; Room Air ABG; Spirometry Roosevelt Thomas MD [address] [place] [address] Phone: tel: fax: Referral ID Status Reason Start Date Expiration Date Visits Re quested Visits Authorized [id number] Closed 09/07/2022 10/07/2023 1 1 Reason for Visit * Procedure (Routine) - Closed Specialty Diagnoses / Procedures Referred By Sisi de león Referred To Contact Diagnoses Abnormal CT scan Procedures Pulmonary Function Test -[facility] Adult PFT [facility]- CAM-8D; Oxygen Assessment Titration, Spirometry, Spirometry with Bronchodilator, ABG, Lung Volumes, DLCO; Pleth with Airway Resistance; Room Air ABG; Spirometry Roosevelt Thomas MD [address] [place] [address] Phone: tel: fax: Referral ID Status Reason Start Date Expiration Date Visits Re quested Visits Authorized [id number] Closed 09/07/2022 10/07/2023 1 1 Encounter Details Date Type Department Care Team (Latest Contact Info) Description 11/24/2022 7:10 AM CDT - 11/24/2022 11:59 PM CDT Hospital Encounter [facility] Pulmonary [address] [place] [address] scan Discharge Disposition: Discharge to home or self care Social History Tobacco Use Types Packs/Day Years Used Date Smoking Tobacco: Never Smokeless Tobacco: Never Alcohol Use Standard Drinks/Week Comments Not Currently 0 (1 standard drink = 0.6 oz pur e alcohol) Comments No Sex and Gender Information Value Date Recorded Sex Assigned at Not on file Legal Sex Female 2:22 AM CANDY POLISHER Gender Identity Female 05/18/2019 7:17 PM CANDY POLISHER Sexual Orientation Straight 05/18/2019 7: 17 PM CANDY POLISHER documented as of this encounter Medications at [...] total) by mouth as needed for allergies pantoprazole DR (PROTONIX) 40 mg EC tablet TAKE 1 TABLET BY MOUTH EVERY MORNING FOR 4 WEEKS 10/19/2022 3 psyllium husk (METAMUCIL ORAL) Take 6 Caplet by mouth every morning 6 caps am 4 sodium, potassium & mag sulfates (SUPREP BOWEL KIT) 17.5-3.13-1.6 gram recon solnIndications: Bowel Evacuation Use prep per instructions the day before procedure for bottle #1 & bottle #2 the AM of procedure 1 mL 11/24/2022 3 soy isofla/blk cohosh/mag bark (ESTROVEN ORAL) Take by mouth Unsure med dosage every day hs 4 sucralfate (CARAFATE) suspension 1 gram/10 mL Have not started yet has to black pickler script 11/23/2022 3 venlafaxine 225 mg tablet extended release 24hr 24 hr tablet 05/12/2022 4 documented as of this encounter Discharge Disposition Disposition Code Departure Means Destination Discharge to home or self care documented in this encounter Plan of Treatment Not on file documented as of this encounter Procedures Procedure Name Priority Date/Time Associated Diagnosis Comments PULMONARY FUNCTION TEST (PFT) Routine 11/24/2022 8:[address] scan documented in this encounter Results * Pulmonary Function Test - (11/24/2022 8:09 AM CDT) FVC PRE 3.48 L [facility] FVC %PRE PRED 93 % [facility] FVC POST 3.31 L [facility] FVC %POST PRED 88 % [facility] FEV1 PRE 2.78 L [facility] FEV1 %PRE PRED 96 % [facility] FEV1 POST 2.72 L [facility] FEV1 %POST PRED 94 % [facility] FEV1/FVC PRE 79.9 % [facility] FEV1/FVC POST 82.1 % [facility] FRC PL PRE 2.93 L [facility] FRC PL %PRE PRED 85 % [facility] RV PRE 1.94 L [facility] RV %PRE PRED 82 % [facility] TLC PRE 5.46 L [facility] TLC %PRE PRED 91 % [facility] DLCO PRE 27.8 ml/min/mmH g [facility] DLCO %PRE PRED 123 % [facility] FIO2 % 21.00 % [facility] PaO2 84.0 mmHg [facility] PaCO2 39.0 mmHg [facility] pH 7.44 [facility] A-aDO2 POC 17.0 mmHg [facility] METHGB % 0.5 % [facility] COHb POC 1.2 % [facility] HCO3 26.5 mEq/L [facility] Anatomical Region Laterality Modality PFT 11/24/2022 7:17 AM CDT Narrative 11/30/2022 11:38 AM CDT Table formatting from the original result was not included. [facility] Division of Pulmonary & Critical Care Medicine [address] [place] [address]; [place] [address] [facility]; [place], [place] ??[address]; [phone] Pulmonary Function Laboratory Pulmonary Stress Test Simple/Oxygen Assessment Patient: Josy Fiore Date: 11/24/2022 : 1960 Ht: 70.0 IN Wt: 296 LBS Time (min) Distance (ft)/ Bacon O2 L/M SpO2 HR Jessica* BP FEV1 % Pred Rest: ??RA 99 80 1 105/66 2.78 96 % ? Walk/Bike: 1 ??RA 99 105 1 ? 2 ??RA 96 112 1 ? 3 ??RA 99 109 2 ? 4 ??RA 99 102 2 ? 5 ??RA 97 102 2 ? 6 min 0 sec ??RA 99 109 2 ? Recovery: 1 ??RA 98 89 3 / 2.71 94% 3 ??RA 99 89 2 122/73 ?*Jessica rate of perceived exertion (1-10 dyspnea scale) ??Ronny, CHEST 2003; 123:1408 Walk Test Summary: Six Minute Walk Distance: 1135 ft Six-minute Walk Work [distance (m) x body wt (kg)]: 78335 kg.m (normal >60,000kg.m) Oxygen required to maintain SpO2 greater than 90% during six minutes of walkin L/M Comments: STOPS 0 ATS Interpretation: Breathing room air, SpO2 is normal at rest and during exercise sufficient to increase pulse from 80 to 109 b/min, SpO2 is stable. On this basis, SpO2 is adequate at rest breathing room air and while walking breathing room air. This level of exercise is associated with no significant change of FEV1. ?? Mariel Mittal M.D. By signing this report, the attending pulmonary physician certifies that he/she has personally reviewed and interpreted the graphic and numerical data associated with this pulmonary function study and has reviewed and /or edited a preliminary draft report and agrees with the written final report. PFT performed at:->[facility] Adult PFT Lab- CAM-8D Procedure:->Oxygen Assessment Titration Procedure:->Spirometry Procedure:->Spirometry with Bronchodilator Procedure:->ABG Procedure:->Lung Volumes Procedure:->DLCO Lung Volumes via:->Pleth with Airway Resistance ABG:->Room Air ABG DLCO:->Spirometry Roosevelt Thomas MD PFT ORDERABLES Final Result documented in this encounter Visit Diagnoses Diagnosis Abnormal CT scan Other nonspecific (abnormal) findings on radiological and other examinations of body structure documented in this encounter Care Teams Telegraphic Typewriter Operator Chief Relationship Specialty Start Date End Date Bj Montaño MD PCP - General Family Medicine 04/15/22 02/19/24 Adam English DO Shipping Support Clerk Gastroenterology 03/26/19 06/05/23 documented as of this encounter
--- OUTSIDE RECORDS SUMMARY | 2024-05-20 13:08 | XMS_ITS | Encounter Summary ---
Author Organization [facility] Address [address] [place] [address] Care Team Providers Care Cable Mock Up Assembler Name Role Phone Adam English DO Unavailable [phone] Bj Montaño MD Primary Care Provider [phone] Encounter Details Date Type Department Care Team (Late st Contact Info) Description 06/25/2022 Orders Only [facility] Accountable Care Organization [address] [place] [address] Deb Tompkins RN [address] [place] [address] [address] [place] [address] Social History Tobacco Use Types Packs/Day Years Used Date Smoking Tobacco: Never Smokeless Tobacco: Never Alcohol Use Standard Drinks/Week Comments Not Currently 0 (1 standard drink = 0.6 oz pur e alcohol) Comments No Sex and Gender Information Value Date Recorded Sex Assigned at Not on file Legal Sex Female 2:22 AM AMR PHYSICIAN Gender Identity Female 05/18/2019 7:17 PM AMR PHYSICIAN Sexual Orientation Straight 05/18/2019 7: 17 PM AMR PHYSICIAN documented as of this encounter Plan of Treatment Not on file documented as of this encounter Visit Diagnoses Not on filedocumented in this encounter Additional Health Concerns Infection Onset Date Last Indicated Resolved Time COVID19 06/22/2022 06/22/2022 07/02/2022 3:05 AM AMR PHYSICIAN documented as of this encounter Care Teams Cable Mock Up Assembler Relationship Specialty Start Date End Date Bj Montaño MD PCP - General Family Medicine 04/15/22 02/19/24 Adam English DO Overseamer Gastroenterology 03/26/19 06/05/23 documented as of this encounter
--- OUTSIDE RECORDS SUMMARY | 2024-05-20 13:08 | XMS_ITS | Encounter Summary ---
Author Organization [facility] Healthcare Address [address] [place] [address] Care Team Providers Care Laborer [employer] Name Role Phone Adam English DO Unavailable [phone] Bj Montaño MD Primary Care Provider [phone] Reason for Visit * Reason Comments Eye Problem Encounter Details Date Type Department Care Team (Late st Contact Info) Description 10/24/2022 7:26 AM CDT - 10/24/2022 12:23 PM CDT Emergency [facility] Emergency Department [address] [place] [address] Shaun Ortega MD [address] [place] [address] Posterior vitreous detachment of right eye (Primary Dx) Discharge Disposition: Discharge to home or self care Social History Tobacco Use Types Packs/Day Years Used Date Smoking Tobacco: Never Smokeless Tobacco: Never Alcohol Use Standard Drinks/Week Comments Not Currently 0 (1 standard drink = 0.6 oz pur e alcohol) Comments No Sex and Gender Information Value Date Recorded Sex Assigned at Not on file Legal Sex Female 2:22 AM HEAVY MEDIA OPERATOR Gender Identity Female 05/18/2019 7:17 PM HEAVY MEDIA OPERATOR Sexual Orientation Straight 05/18/2019 7: 17 PM HEAVY MEDIA OPERATOR documented as of this encounter Last Filed Vital Signs Vital Sign Reading Time Taken Comments Blood Pressure 141/67 10/24/2022 11:30 AM CDT Pulse 75 10/24/2022 11:30 AM CDT Temperature 36.3 ??C (97.3 ??F) 10/24/2022 7:12 AM CD T Respiratory Rate 16 10/24/2022 11:30 AM CDT Oxygen Saturation 99% 10/24/2022 11:30 AM CDT Inhaled Oxygen Concentration - - Weight 129.7 kg (286 lb) 10/24/2022 7:12 AM CDT Height 177.8 cm (5' 10 ) 10/24/2022 7:12 AM CDT Body Mass Index 41.04 10/24/2022 7:12 AM CDT documented in this encounter Discharge Instructions * Discharge Instructions* Jarred Carlton MD - 10/24/2022 11:44 AM CDT You were seen in the emergency department today for evaluation of floaters and flashes in the righteye. Ophthalmology saw you and they believe that this is likely due to a posterior vitreous detachment. They recommend follow up in their retina clinic in approximately 2 weeks. I have attached the information below. INFORMATION REGARDING THE [facility] Please call us to make an appointment. You should be seen in about 2 weeks for follow up in the retina clinic. Direct clinic number: Directions to clinic: [facility], [facility] [address], 1st floor [facility]. [place] in [facility]. From the [facility] lobby, follow signs to the Eye Clinic, or ask for directions to the [facility] eye clinic in the [facility]. PLEASE CALL24 HOURS IN ADVANCE IF YOU ARE UNABLE TO KEEP YOUR APPOINTMENT. Please return to the emergency department if you have any new or concerning symptoms including development of eye pain, loss of vision, or new neurologic symptoms including weakness or sensation loss. Follow up with your primary care physician as needed. documented in this encounter Medications at Time of Discharge ALPRAZolam (XANAX) 0.25 mg tablet Take 1 tablet (0.25 mg total) by mouth 3 (three) times a day as needed for anxiety losartan-hydroCHLORO thiazide (HYZAAR) 50-12.5 mg per tablet 1/2 tab am 10/14/2020 SUMAtriptan (IMITREX) 100 mg tablet rkevagi-hgauxnofg-gd nc tablet Take 1 tablet by mouth nightly 1000mg/400mg/1 5mg every day 3 cetirizine (ZyrTEC) 10 mg tablet Take 1 tablet (10 mg total) by mouth as needed for allergies 4 L gasseri/B bifidum/B longum ([facility] COLON HEALTH ORAL) Take 1 tablet by mouth every morning Colon Health every day unsure med dosage 3 lutein 20 mg tablet Take 1 tablet by mouth nightly hs 3 ondansetron (ZOFRAN) 4 mg tabletIndications:Ac opal gastroenteritis Take 1 tablet (4 mg total) by mouth every 8 (eight) hours as needed for nausea or vomiting 20 tablet 05/12/[address] (PROTONIX) 40 mg EC [...] or self care documented in this encounter Consult Notes * Pepper Carey MD - 10/24/2022 10:13 AM CDTAssociated Order(s): IP CONSULT TO OPHTHALMOLOGY OPHTHALMOLOGY - INPATIENT NEW CONSULT REPORT History of Present Illness This is a 62 y.o. female with PMHx of arthritis, diverticulitis, HTN, NAFLD, migraines and OHx of HST OS s/p retinopexy, seen in the ED on 10/24/2022 w/ No admission diagnoses are documented for this encounter. Reason for consult: No data found Ms. Fiore has a history of a HST at 5'clock OS s/p retinopexy 07/29/[address] Jaylon Hanson in the retina clinic at [facility]. Reports that last night she began noting flashes of light in the right eye, later accompanied by floaters that look like a strand of hair. Symptoms had progressed from overnight so she presented to the ED. Feels she is seeing 2-10 floaters in addition to periodic flashes of light. No dark curtain over the vision. Vision OD slightly blurrier than usual. No history of trauma or eye surgeries. Review of Systems: Ophthalmic ROS: as above Past Ocular History: as above Past Medical History: Diagnosis Date Anxiety Arthritis Right ankle and knee Cholecystitis Colorectal polyps Depression Diverticulitis GERD (gastroesophageal reflux disease) Hypertension 2 years Migraines 2000 NAFLD (nonalcoholic fatty liver disease) Ovarian cyst Rosacea Past Surgical History: Procedure Laterality Date CHOLECYSTECTOMY 2013 COLECTOMY 04/18/2019 Laparoscopic sigmoid colectomy COLONOSCOPY 10/03/2018 GALLBLADDER SURGERY 2012 HYSTERECTOMY 1999 TLH, R SO LAPAROSCOPIC OVARIAN CYSTECTOMY LESIONECTOMY Right 2009 benign skin lesion removed from R anterior chest SINUS SURGERY 1985 SKIN CANCER EXCISION Right 1994 V-Y flap R baptist for BCCa TERATOMA EXCISION Left 1995 L SO TONSILLECTOMY AND ADENOIDECTOMY 1963 TONSILLECTOMY AND ADENOIDECTOMY 196 Family History Problem Relation Age of Onset Colon cancer Mother Hypertension Mother Gallbladder disease Mother Cancer Mother Depression Mother Gallbladder disease Father Diverticulosis Father Heart attack Father fatal day following LHC Diverticulosis Brother Diabetes Maternal Grandmother Malig Hyperthermia Neg Hx Anesthesia problems Neg Hx Sudden Cardiac Neg Hx Stroke Neg Hx Bleeding Disorder Neg Hx Clotting disorder Neg Hx Social History Tobacco Use Smoking status: Never Smokeless tobacco: Never Substance and Sexual Activity Drug use: Never Sexual activity: Yes Partners: Male control/protection: None Alcohol Use: Not on file Home Meds: No current outpatient medications on file. (Ophthalmic) Current Outpatient Medications (Other) Medication Sig ALPRAZolam (XANAX) 0.25 mg tablet Take 0.25 mg by mouth 3 (three) times a day as needed for anxiety bgoqvpj-uvdmdxtty-msrg tablet Take 1 tablet by mouth nightly 1000mg/400mg/15mg every day cetirizine (ZyrTEC) 10 mg tablet Take 10 mg by mouth as needed for allergies L gasseri/B bifidum/B longum ([facility]ON HEALTH ORAL) Take 1 tablet by mouth every morning Colon Health every day unsure med dosage losartan-hydroCHLOROthiazide (HYZAAR) 50-12.5 mg per tablet lutein 20 mg tablet Take 1 tablet by mouth nightly hs (Patient not taking: Reported on 07/18/2022) ondansetron (ZOFRAN) 4 mg tablet Take 1 tablet (4 mg total) by mouth every 8 (eight) hours as needed for nausea or vomiting (Patient not taking: Reported on 06/22/2022) psyllium husk (METAMUCIL ORAL) Take 6 Caplet by mouth every morning 6 caps am soy isofla/blk cohosh/mag bark (ESTROVEN ORAL) Take by mouth Unsure med dosage every day hs SUMAtriptan (IMITREX) 100 mg tablet venlafaxine 225 mg tablet extended release 24hr 24 hr tablet Current Hospital Meds: No current facility-administered medications for this encounter. (Ophthalmic) No current facility-administered medications for this encounter. (Other) Physical Exam: Vitals: 10/24/22 1130 BP: 141/67 Pulse: 75 Resp: 16 Temp: SpO2: 99% Base Eye Exam Visual Acuity (Snellen - Linear) Right Left Near cc 20/20-2 20/20 Tonometry (Tonopen, 10:13 AM) Right Left Pressure 21 22 Pupils Dark Light Shape React APD Right 6 3 Round Brisk None Left 6.5 3.5 Round Brisk None Visual Wheeler (Counting fingers) Left Right Full Full Extraocular Movement Right Left Full Full Neuro/Psych Oriented x3: Yes Mood/Affect: Normal Dilation Both eyes: 1.0% Mydriacyl, 2.5% Phenylephrine @ 10:10 AM Slit Lamp and Fundus Exam External Exam Right Left External Normal Normal Slit Lamp Exam Right Left Lids/Lashes Normal Normal Conjunctiva/Sclera White and quiet White and quiet Cornea Clear Clear Anterior Chamber Deep and quiet Deep and quiet Iris Round and reactive Round and reactive Lens tr NS tr NS, CS Fundus Exam Right Left Vitreous PVD (Clark ring), vit syn, Freddy's negative PVD Disc Normal Normal C/D Ratio 0.1 0.1 Macula Normal Normal Vessels Normal Normal Periphery Normal horseshoe tear at 5 oclock far periphery s/p barricaded, Laser scar no new tears or detachments Lab/Radiology/Diagnostic Review: Lab Results Component Value Date WBC 9.9 07/19/2022 HGB 14.6 07/19/2022 HCT 43.1 07/19/2022 MCV 91.5 07/19/2022 LABPLAT 233 07/19/2022 No results found. ASSESSMENT/PLAN AND RECOMMENDATIONS: # Posterior vitreous detachment, OD --62yo F w/ PMHx HST s/p laser retinopexy OS presenting with flashes of light, floaters, and subjectively blurry vision OD since yesterday night --VA 20/20-2 OD, 20/20 OS. No rAPD. IOP wnl OU. CVF, EOMs full. Anterior exam with tr NS OU. DFEx OD with PVD (Clark ring) OD not previously noted at last retina clinic visit 3 months ago. DFEx OS with HST at 5 o'clock in far periphery with laser scarring. Recommendations --Discussed pathophysiology and natural course of PVD --Discussed strict return precautions for worsening vision, floaters, flashes of light, curtain over the vision, or any other ocular concerns --Page ophthalmology resident validation analyst if any new/worsening concerning visual symptoms Ophthalmology follow-up: U retina 11/02 for DFEx OU, OCT mac OU Please include the following in discharge paperwork: If you do not receive a call from [facility], please call clinic during business hours ([phone]) to schedule an appointment. If having worsening symptoms, please call after hours emergency ([phone]). INFORMATION REGARDING THE [facility] Please call us to make an appointment. Direct clinic number: Directions to clinic: [facility], [address], 1st floor [facility]. [place] in the [facility]. [facility], follow signs to the Eye Clinic, or ask for directions to the [facility] eye clinic in the [facility]. PLEASE CALL 24 HOURS IN ADVANCE IF YOU ARE UNABLE TO KEEP YOUR APPOINTMENT. Pepper Carey MD 10/24/2022 7:15 PM Ophthalmology Resident, PGY-2 Please page the ophthalmology resident on-call via [employer] with any questions. This consult is NOT complete without attending attestation and/or cosign. Please note that bedside hospital exams have several limitations that can affect reliability and make it difficult to discern both short-term and long-term visual outcomes including limitations of bedside equipment, inability to control lighting conditions, varying participation, changes in clinical status, and lack of ancillary tests that are available in a clinic setting. Cosigned by Ori Jean MD at 10/24/2022 8:42 PM CDT Associated attestation - Ori Jean MD - 10/24/2022 8:42 PM CDT I have seen, examined, and discussed the patient with the resident/fellow. I agree with the assessment and plan below, with the following changes/additions: Patient established in [facility] Retina clinic, would like to follow-up in that clinic as well. Ori Jean MD 10/24/2022 8:41 PM documented in this encounter ED Notes * Jrared Carlton MD - 10/24/2022 8:28 AM CDT HPI Chief Complaint Patient presents with Eye Problem HPI Patient is a 62-year-old female with past medical history of NAFLD, diverticulitis, retinal tear ofthe left eye status post laser treatment who is presenting to the emergency department for evaluation of new onset floaters and ???lightening flashes?? in her right eye. Patient notes that the symptoms started last night. Patient went to bed thinking that they would improve overnight but woke up and they were slightly worse. She tried to call her ophthalmology clinic to get in to be seen, but they told her to come to the emergency department for quicker access. Patient notes that these symptoms are very similar to her previous left retinal tear back in July of 2022. Patient's I history includes left retinal tear status post laser treatment. She also wears corrective lenses for her eyes but has never had surgery. Denies any trauma to the eye, denies any pressure behind the eye or associated headache. Says she has some slight associated photophobia. Denies any chest pain, shortness of breath, abdominal pain, nausea, vomiting, fevers, chills. No alcohol, tobacco, recreational drugs. Patient History: Patient Active Problem List Diagnosis Date Noted Retinal tear of left eye 07/29/2022 Achilles [...] colectomy COLONOSCOPY 10/03/2018 GALLBLADDER SURGERY 2012 HYSTERECTOMY 1999 TLH, R SO LAPAROSCOPIC OVARIAN CYSTECTOMY LESIONECTOMY Right 2009 benign skin lesion removed from R anterior chest SINUS SURGERY 1985 SKIN CANCER EXCISION Right 1994 V-Y flap R baptist for BCCa TERATOMA EXCISION Left 1995 L SO TONSILLECTOMY AND ADENOIDECTOMY 1962 TONSILLECTOMY AND ADENOIDECTOMY 1961 Family History Problem Relation Age of Onset Colon cancer Mother Hypertension Mother Gallbladder disease Mother Cancer Mother Depression Mother Gallbladder disease Father Diverticulosis Father Heart attack Father fatal day following LHC Diverticulosis Brother Diabetes Maternal Grandmother Malig Hyperthermia Neg Hx Anesthesia problems Neg Hx Sudden Cardiac Neg Hx Stroke Neg Hx Bleeding Disorder Neg Hx Clotting disorder Neg Hx Social History Tobacco Use Smoking status: Never Smokeless tobacco: Never Substance and Sexual Activity Alcohol use: Not Currently Drug use: Never Sexual activity: Yes Partners: Male control/protection: None Social History Social History Narrative Not on file Review of Systems Review of Systems Constitutional: Negative for chills and fever. HENT: Negative for ear pain and sore throat. Eyes: Positive for photophobia and visual disturbance (Floaters and ???lightening flashes?? ). Negative for pain. Respiratory: Negative for cough and shortness of breath. Cardiovascular: Negative for chest pain and palpitations. Gastrointestinal: Negative for abdominal pain and vomiting. Genitourinary: Negative for dysuria and hematuria. Musculoskeletal: Negative for arthralgias and back pain. Skin: Negative for color change and rash. Neurological: Negative for seizures and syncope. All other systems reviewed and are negative. Physical Exam ED Triage Vitals [10/24/22 0712] Temp Pulse Resp BP SpO2 36.3 ??C (97.3 ??F) 78 16 155/92 100 % Temp src Heart Rate Source Patient Position BP Location FiO2 (%) Skin -- -- -- -- Height Height Method Weight Weight Method 1.778 m (5' 10 ) Stated 129.7 kg (286 lb) Stated Physical Exam Vitals and nursing note reviewed. Constitutional: General: She is not in acute distress. Appearance: Normal appearance. She is well-developed. She is not ill-appearing. HENT: Head: Normocephalic and atraumatic. Mouth/Throat: Mouth: Mucous membranes are moist. Pharynx: Oropharynx is clear. Eyes: General: No scleral icterus. Extraocular Movements: Extraocular movements intact. Conjunctiva/sclera: Conjunctivae normal. Pupils: Pupils are equal, round, and reactive to light. Comments: We will perform visual acuity and eye pressures Cardiovascular: Rate and Rhythm: Normal rate and regular rhythm. Pulses: Normal pulses. Heart sounds: Normal heart sounds. No murmur heard. Pulmonary: Effort: Pulmonary effort is normal. No respiratory distress. Breath sounds: Normal breath sounds. No wheezing, rhonchi or rales. Abdominal: General: There is no distension. Palpations: Abdomen is soft. Tenderness: There is no abdominal tenderness. There is no guarding or rebound. Musculoskeletal: General: No swelling. Cervical back: Neck supple. Right lower leg: No edema. Left lower leg: No edema. Skin: General: Skin is warm and dry. Capillary Refill: Capillary refill takes less than 2 seconds. Neurological: General: No focal deficit present. Mental Status: She is alert and oriented to person, place, and time. Sensory: No sensory deficit. Motor: No weakness. Psychiatric: Mood and Affect: Mood normal. Behavior: Behavior normal. [facility] Medical Decision Making Patient is a 62-year-old female who is presenting to the emergency department for new onset floaters and lightening flashes in her right eye that started last night. Patient is not endorsing any eye pain or loss of visual wheeler. Patient notes that these symptoms are highly similar to her previous left retinal tear back in July 2022. Patient tried to get scheduled with ophthalmology clinic butwas unable to. Recommended to come to the ED. on exam, heart sounds are normal, lung sounds are clear bilaterally, abdomen is soft nontender nondistended. Patient's eyes exam includes pupils equal round reactive to light, extraocular movements intact without nystagmus, no APD. Differential includes: Retinal tear/detachment, vitreous detachment, vitreous hemorrhage Less likely: Posterior uveitis, migraines with aura We will check patient's pressures and visual acuity. We will consult Ophthalmology. Dispo: pending ophtho rec Attending Summary of Care ED Course as of 10/24/22 1522 Time: 10/24 0830 Comment: Visual acuity with glasses is 20/20 in the right eye and 20/25 in the left eye. 20/20 withboth eyes Vision acuity without glasses is 20/50 in the left eye and 20/70 in the right eye. 20/50 with both eyes Eye pressures are OD 11, OS 13 By: Jarred Carlton MD Time: 10/24 1140 Comment: Talked with up though, they believe that this is likely a symptomatic posterior vitreous detachment. Nothing to do at this time. Recommend follow up in 2 weeks in the Retina Clinic. We will put information in the discharge paperwork. By: Jarred Carlton MD Posterior vitreous detachment of right eye Jarred Carlton MD Resident 10/24/22 152 Cosigned by Shaun Ortega MD at 10/24/2022 3:29 PM CDT Associated attestation - Shaun Ortega MD - 10/24/2022 3:29 PM CDT I have seen and examined the patient on 10/24/2022. I agree with the findings and plan of care as documented in the resident's note. * Wendy Reese RN - 10/24/2022 7:26 AM CDT Bed: [id number] Expected date: Expected time: Means of arrival: Car Comments: Wendy Reese RN 10/24/22 0726 * Ramona Miller RN - 10/24/2022 7:12 AM CDT Pt arrives to ED from home with c/o visual disturbances in her right eye and a slight headache on the right side of her head. Pt endorsing seeing flashing lights, little black dots, and hairlines in her mid to right periphery of her right eye. Denies any extremity weakness or paraesthesias. Pmhx: HTN, retinal detachment of left eye July of this year, NAFLD On arrival pt is A&Ox4 denies any CP/SOB/N/V/D. documented in this encounter Miscellaneous Notes * Significant Event - Pepper Carey MD - 10/24/2022 10:13 AM CDT Ophthalmology Dilation Note After obtaining clearance from primary team, patient's eyes were dilated by Ophthalmology at 10:13 AM using tropicamide 1% and phenylephrine 2.5%. Pupils will remain dilated and unreliable for neuro checks for approximately 8-12 hours. Questions should be directed to the on-call ophthalmology resident via [employer] or [email or web address]. Pepper Carey MD 10/24/2022 10:13 AM Ophthalmology Resident, PGY-2 * ED Pre-Arrival Note - Ramona Miller RN - 10/24/2022 7:10 AM CDT Pre-Arrival Note Ramona Miller, RN documented in this encounter Plan of Treatment Not on file documented as of this encounter Visit Diagnoses Diagnosis Posterior vitreous detachment of right eye- Primary Vitreous degeneration documented in this encounter Orders Consult Count Last Ordered Date First Orde red Date IP CONSULT TO OPHTHALMOLOGY 1 10/24/2022 documented in this encounter Care Teams Laborer [employer] Relationship Specialty Start Date End Date Bj Montaño MD PCP - General Family Medicine 04/15/22 02/19/24 Adam English DO [facility] 03/26/19 06/05/23 documented as of this encounter
--- OUTSIDE RECORDS SUMMARY | 2024-05-20 13:08 | XMS_ITS | Encounter Summary ---
Author Organization [facility] Healthcare Address [address] [place] [address] Care Team Providers Care Commercial Litigation Paralegal Name Role Phone Adam English DO Unavailable [phone] Bj Montaño MD Primary Care Provider [phone] Encounter Details Date Type Department Care Team (Latest Contact Info) Description 11/22/2022 5:30 PM CDT - 11/22/2022 11:59 PM CDT Hospital Encounter [facility] Radiology [address] [place] [address] scan Discharge Disposition: Discharge to home or self care Social History Tobacco Use Types Packs/Day Years Used Date Smoking Tobacco: Never Smokeless Tobacco: Never Alcohol Use Standard Drinks/Week Comments Not Currently 0 (1 standard drink = 0.6 oz pur e alcohol) Comments No Sex and Gender Information Value Date Recorded Sex Assigned at Not on file Legal Sex Female 2:22 AM TRAVEL ACCOMMODATION INSPECTOR Gender Identity Female 05/18/2019 7:17 PM TRAVEL ACCOMMODATION INSPECTOR Sexual Orientation Straight 05/18/2019 7: 17 PM TRAVEL ACCOMMODATION INSPECTOR documented as of this encounter Medications at Time of Discharge ALPRAZolam (XANAX) 0.25 mg tablet Take 1 tablet (0.25 mg total) by mouth 3 (three) times a day as needed for anxiety azelaic acid 15 % gel APPLY TOPICALLY TO THE AFFECTED AREA TWICE DAILY 11/18/2022 losartan-hydroCHLORO thiazide (HYZAAR) 50-12.5 mg per tablet / tab am 10/14/2020 SUMAtriptan (IMITREX) 100 mg tablet nbhvaau-gmceybduu-it nc tablet Take 1 tablet by mouth nightly 1000mg/400mg/1 5mg every day 3 cetirizine (ZyrTEC) 10 mg tablet Take 1 tablet (10 mg total) by mouth as needed for allergies 4 L gasseri/B bifidum/B longum ([facility] ORAL) Take 1 tablet by mouth every morning [facility] every day unsure med dosage 3 lutein 20 mg tablet Take 1 tablet by mouth nightly hs 3 ondansetron (ZOFRAN) 4 mg tabletIndications:Ac [place] gastroenteritis Take 1 tablet (4 mg total) [...] VIEWS Schedule Routine, Read Routine (OP Routine) 11/22/2022 5:[address] scan documented in this encounter Results * XR Chest Pa Lateral 2 Views (11/22/2022 5:42 PM CDT) Anatomical Region Laterality Modality Body, Chest N/A Computed Radiogr aphy 11/23/2022 11:1 2 AM CDT Impressions 11/23/2022 11:56 AM CDT Comparison prior chest radiograph 07/27/2022. There is bibasilar linear scarring present, unchanged from prior study. ??Otherwise no airspace opacity or pulmonary edema. ??No pleural effusion or pneumothorax. Dictated by: Kiki Lr MD The radiology attending physician has personally reviewed this study, and had reviewed and/or edited this written report and agrees with it. Electronically signed by: Amandeep Chaidez M.D. Narrative 11/23/2022 11:56 AM CDT EXAMINATION: 2 view chest radiograph Procedure Note Amandeep Cahidez MD - 11/23/2022 EXAMINATION: 2 view chest radiograph IMPRESSION: Comparison prior chest radiograph 07/27/2022. There is bibasilar linear scarring present, unchanged from prior study. Otherwise no airspace opacity or pulmonary edema. No pleural effusion or pneumothorax. Dictated by: Kiki Lr MD The radiology attending physician has personally reviewed this study, and had reviewed and/or edited this written report and agrees with it. Electronically signed by: Amandeep Chaidez M.D. Roosevelt Thomas MD IMG XR PROCEDURES Final Result documented in this encounter Visit Diagnoses Diagnosis Abnormal CT scan Other nonspecific (abnormal) findings on radiological and other examinations of body structure documented in this encounter Care Teams Commercial Litigation Paralegal Relationship Specialty Start Date End Date Bj Montaño MD PCP - General Family Medicine 04/15/22 02/19/24 Adam English DO Microfabrication Engineer Manager Gastroenterology 03/26/19 06/05/23 documented as of this encounter
--- OUTSIDE RECORDS SUMMARY | 2024-05-20 13:08 | XMS_ITS | Encounter Summary ---
Author Organization [facility] Address [address] [place] [address] Phone Care Team Providers Care Marble Helper Name Role Phone Adam English DO Unavailable [phone] Bj Montaño MD Primary Care Provider [phone] Reason for Visit * Reason Comments Eye Exam Encounter Details Date Type Department Care Team (Late st Contact Info) Description 07/29/2022 1:20 PM CDT Office Visit [facility] Ophthalmology [address] [place] [address] [address] [place] [address] Dov Tao, OD [address] [id number] Retinal tear of left eye (Primary Dx) Social History Tobacco Use Types Packs/Day Years Used Date Smoking Tobacco: Never Smokeless Tobacco: Never Alcohol Use Standard Drinks/Week Comments Not Currently 0 (1 standard drink = 0.6 oz pur e alcohol) Comments No Sex and Gender Information Value Date Recorded Sex Assigned at Not on file Legal Sex Female 2:22 AM COMMUNITY DEVELOPMENT PLANNER Gender Identity Female 05/18/2019 7:17 PM COMMUNITY DEVELOPMENT PLANNER Sexual Orientation Straight 05/18/2019 7: 17 PM COMMUNITY DEVELOPMENT PLANNER documented as of this encounter Progress Notes * Dov Tao, OD - 07/29/2022 1:20 PM CDT Reason for Visit Today Chief Complaint Eye Exam Flashes since 07/28/22 floaters since this morning OS. Pt c/o pain/pressure/heavy/burning/tired OS. Pt states vision is stable OU. Pt states she was COVID pos in 06/2022 and is having long COVID symptoms, swollen lymph nodes on the left side of neck and chest, shortness of breath, and fatigue. Gtts: Refresh BID OU. ASSESSMENT/ORDERS/PROCEDURES PERFORMED TODAY Problem List Eye/Vision Problems Retinal tear of left eye - Primary Current Assessment & Plan Symptoms started one day ago left eye (OS), no significant subretinal fluid (SRF). Tear at 5 o'clock left eye (OS). Educated on findings and typical treatment options. Will be seen same day with retina. Stressed importance of exam. The signs and symptoms of retinal detachment, tears, infection, elevated intra- ocular pressure werereviewed with the patient. Patient knows to call should they have any of the symptoms. PLAN FOR NEXT VISIT Return for same day retina. documented in this encounter Miscellaneous Notes * Assessment & Plan Note - Dov Tao, OD - 07/29/2022 11:33 AM CDT Associated Problem(s): Retinal tear of left eye Symptoms started one day ago left eye (OS), no significant subretinal fluid (SRF). Tear at 5 o'clock left eye (OS). Educated on findings and typical treatment options. Will be seen same day with retina. Stressed importance of exam. documented in this encounter Plan of Treatment Not on file documented as of this encounter Visit Diagnoses Diagnosis Retinal tear of left eye- Primary documented in this encounter Additional Health Concerns Infection Onset Date Last Indicated Resolved Time COVID: Recovered Comment:Added based on recent COVID infection. 07/02/2022 07/04/2022 09/30/2022 3:05 AM C DT documented as of this encounter Eye Exam Visual Acuity (Snellen - Linear) Right eye Left eye Dist cc 20/20 -2 20/20 -1 Correction: Glasses Tonometry (Tonopen, 10:30 AM) Right eye Left eye Pressure 14 14 Pupils Pupils Dark Light Shape React APD Right eye PERRL 5 3 Round Brisk None Left eye PERRL 5 3 Round Brisk None Visual Wheeler (Counting fingers) Right eye Left eye Full Full Extraocular Movement Right eye Left eye Full Full Neuro/Psych Oriented x3: Yes Mood/Affect: Normal Dilation Both eyes: 1.0% Mydriacyl, 2 .5% Phenylephrine @ 10:30 AM External Exam Right eye Left eye External Normal Normal Slit Lamp Exam Right eye Left eye Lids/Lashes Normal Normal Conjunctiva/Sclera White and quiet White and ciro et Cornea Clear Clear Anterior Chamber Deep and quiet Deep and quiet Iris Round and reactive Round and lisset ctive Lens tr NS tr NS Anterior Vitreous Normal PVD Fundus Exam Right eye Left eye Disc Normal Normal C/D Ratio 0.3 0.3 Macula Normal Normal Vessels Normal Normal Periphery Normal horseshoe tear a t 5 oclock far periphery, few DBH Wearing Rx Sphere Cylinder Warren Add Right eye +1.25 +0.25 086 +2.25 Left eye +1.25 +0.25 104 +2.25 Glasses are about 6 months old. Care Teams Marble Helper Relationship Specialty Start Date End Date Bj Montaño MD PCP - General Family Medicine 04/15/22 02/19/24 Adam English DO Car Mechanic Gastroenterology 03/26/19 06/05/23 documented as of this encounter
--- OUTSIDE RECORDS SUMMARY | 2024-05-20 13:08 | XMS_ITS | Encounter Summary ---
Author Organization [facility] Address [address] [place] [id number] Care Team Providers Care Chief Legal Officer Name Role Phone Adam English DO Unavailable [phone] Bj Montaño MD Primary Care Provider [phone] Reason for Visit * Reason Comments Nasal Congestion Nasal congestion wit h SAN BA cough fatigue Cough Headache Encounter Details Date Type Department Care Team (Late st Contact Info) Description 06/22/2022 4:15 PM MORTGAGE LOAN COORDINATOR Office Visit [facility] [address] [id number] Jacqueline Clark, HIGH SCHOOL COORDINATOR [address] [place] [id number] COVID-19 (Primary Dx) Social History Tobacco Use Types Packs/Day Years Used Date Smoking Tobacco: Never Smokeless Tobacco: Never Alcohol Use Standard Drinks/Week Comments Not Currently 0 (1 standard drink = 0.6 oz pur e alcohol) Comments No Sex and Gender Information Value Date Recorded Sex Assigned at Not on file Legal Sex Female 2:22 AM MORTGAGE LOAN COORDINATOR Gender Identity Female 05/18/2019 7:17 PM MORTGAGE LOAN COORDINATOR Sexual Orientation Straight 05/18/2019 7: 17 PM MORTGAGE LOAN COORDINATOR documented as of this encounter Last Filed Vital Signs Vital Sign Reading Time Taken Comments Blood Pressure 122/82 06/22/2022 4:29 PM MORTGAGE LOAN COORDINATOR Pulse 108 06/22/2022 4:48 PM MORTGAGE LOAN COORDINATOR Temperature 37.3 ??C (99.1 ??F) 06/22/2022 4:29 PM CS T Respiratory Rate 20 06/22/2022 4:29 PM MORTGAGE LOAN COORDINATOR Oxygen Saturation 96% 06/22/2022 4:48 PM MORTGAGE LOAN COORDINATOR Inhaled Oxygen Concentration - - Weight 130.6 kg (288 lb) 06/22/2022 4:29 PM MORTGAGE LOAN COORDINATOR Height 177.8 cm (5' 10 ) 06/22/2022 4:29 PM MORTGAGE LOAN COORDINATOR Body Mass Index 41.32 06/22/2022 4:29 PM MORTGAGE LOAN COORDINATOR documented in this encounter Patient Instructions * Patient Instructions* Jacqueline Clark, HIGH SCHOOL COORDINATOR - 06/22/2022 4:15 PM MORTGAGE LOAN COORDINATOR The rapid COVID test performed today in clinic was positive. The following are recommendations for treating the symptoms related to COVID19. What is the difference between Influenza (Flu) and COVID-19? Influenza (Flu) and COVID-19 are both contagious respiratory illnesses, but they are caused by different viruses. COVID-19 is caused by infection with a new coronavirus (called SARS-CoV-2) and flu is caused by infection with influenza viruses. There are some zavaleta differences between flu and COVID-19. COVID-19 seems to spread more easily than flu and causes more serious illnesses in some people. It can also take longer before people show symptoms and people can be contagious for longer. The best way to prevent infection is to avoid being exposed to the virus. Because some of the symptoms of flu and COVID-19 are similar, it may be hard to tell the difference between them based on symptoms alone, and testing may be needed to help confirm a diagnosis.While more is learned every day, there is still a lot that is unknown about COVID-19 and the virus that causes it. The [facility] will be reaching out to all patients who have a positive test for further discussion and monitoring. Continue to self isolate until at least 5 days have passed since symptom onset, your symptoms have improved, and you have been fever free without the use of fever reducing medications for at least 24 hours. The CDC recommends that after 5 days of isolation if you are fever free and symptoms have improved that you can come out of isolation but please continue to wear your mask. You may use acetaminophen and/or ibuprofen to control pain and fever. If you have chronic liver disease, have ever had a stomach ulcer or gastrointestinal bleeding talk with your healthcare provider before using these medicines. Aspirin should never be given to anyone under 18 years of age who is ill with a viral infection or fever. It may cause severe liver or brain damage. Your appetite may be poor, so a light diet is ok. Stay well hydrated by drinking 6 to 8 glasses of fluids per day (water, soft drinks, juices, tea, or soup). Extra fluids will help loosen secretions in the nose and lungs. Fvwc-jex-gneyhgl cold medicines will not shorten the length of time you???re sick, but they may be helpful for relieving the following symptoms: headache, cough, sore throat, and nasal and sinus congestion. If you take prescription medicines, ask your healthcare provider or pharmacist which lsyd-hve-srwxidw medicines are safe to use. (Note: DO NOT use decongestants if you have high blood pressure.) Steps to help prevent the spread of COVID-19 if you are sick If you are sick with COVID-19 or think you might have COVID-19, follow the steps below to care for yourself and to help protect other people in your home and community. Stay home except to get medical care Most people with COVID-19 have mild illness and are able to recover at home without medical care. Do not leave your home, except to get medical care. Do not visit public areas. Take care of yourself. Get rest and stay hydrated. Take gtio-cvi-ibfnatg medicines to help you feelbetter. Stay in touch with your doctor. Call before you get medical care. Be sure to get care if you have trouble breathing, or have any other emergency warning signs, or if you think it is an emergency. Avoid using public transportation, ride-sharing, or taxis. Monitor your symptoms Symptoms of COVID-19 include fever, cough, shortness of breath or difficulty breathing, fatigue, muscle or body aches, headache, new loss of taste or smell, sore throat, congestion, runny nose, nausea, vomiting, or diarrhea. When to Seek Medical Attention If you develop emergency warning signs for COVID-19 get medical attention immediately. Emergency warning signs include*: Trouble breathing Persistent pain or pressure in the chest New confusion or inability to arouse Bluish lips or face *This list is not all inclusive. Please consult your medical provider for any other symptoms that are severe or concerning. Call 911 if you have a medical emergency: If you have a medical emergency and need to call 911, notify the bending machine set up operator that you have or think you might have, COVID-19. If possible, put on a facemask before medical help arrives. Separate yourself from other people in your home, this is known as home isolation As much as possible, you should stay away from other people and pets in your home. You should stay in a specific ???sick room?? if possible. Use a separate bathroom, if available. If you need to be around other people or animals in or outside of the home, wear a mask For more information on sharing close living quarters with someone who is sick visit https://www.cdc .gov/coronavirus/2019-ncov/dioac-jrog-eongvt/fcbpam-hv-wnfkd-quarters.html For more information on COVID-19 and pets visit https://www.cdc.gov/coronavirus/2019-ncov/faq.html Call ahead before visiting your doctor Many medical visits for routine care are being postponed or done by phone or telemedicine. If you have a medical appointment that cannot be postponed, call your doctor???s office, and tell them you have or may have COVID-19. This will help the office protect themselves and other patients. GAGE LOAN COORDINATOR documented in this encounter Ordered Prescriptions Prescription Sig Dispense Quantity Refills Last Filled Start Date End Date molnupiravir 200 mg capsule (EUA)Indications:C OVID-19 Take 4 capsules (800 mg total) by mouth every 12 (twelve) hours for 5 days 40 capsule 06/22/2022 3 documented in this encounter Progress Notes * Jacqueline Clark NP - 06/22/2022 4:15 PM CST Images from the original note were not included. Patient ID: Josy Fiore is a 62 y.o. female followed by Bj Montaño MD Chief Complaint Patient presents with Nasal Congestion Nasal congestion with SAN BA cough fatigue Cough Headache Patient presents to the clinic with reports of congestion, cough, headache, fatigue, and body achesfor 1 day. Denies chest pain, difficulty breathing, vomiting, diarrhea, and rash. She has taken dayquil and nyquil for her symptoms. 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 Review of Systems Constitutional: Positive for fatigue. Negative for chills and fever. HENT: Positive for congestion. Negative for ear pain, postnasal drip, rhinorrhea and sore throat. Respiratory: Positive for cough. Negative for chest tightness, shortness of breath and wheezing. Cardiovascular: Negative for chest pain. Gastrointestinal: Negative for diarrhea, nausea and vomiting. Musculoskeletal: Positive for myalgias. Neurological: Positive for headaches. Vitals: 06/22/22 1629 06/22/22 1648 BP: 122/82 BP Location: Left arm Patient Position: Sitting Pulse: 102 108 Resp: 20 Temp: 37.3 ??C (99.1 ??F) TempSrc: Oral SpO2: 93% 96% Weight: 130.6 kg (288 lb) Height: 177.8 cm (5' 10 ) Recent Results (from the past 24 hour(s)) POC Influenza A/B, COVID-19 antigen Collection Time: 06/22/22 4:37 PM Result Value Ref Range Influenza A Ag, POC Negative Negative Influenza B Ag, POC Negative Negative COVID-19 Ag POC Positive (A) Presumptive Negative, Invalid POCT rapid strep A Collection Time: 06/22/22 5:02 PM Result Value Ref Range Rapid Strep A, POC Negative Physical Exam Vitals reviewed. Constitutional: General: She is not in acute distress. Appearance: She is well-developed. She is ill-appearing (mildly). HENT: Right Ear: Tympanic membrane, ear canal and external ear normal. Tympanic membrane is not injected,erythematous or bulging. Left Ear: Tympanic membrane, ear canal and external ear normal. Tympanic membrane is not injected, erythematous or bulging. Nose: Congestion and rhinorrhea present. Rhinorrhea is clear. Right Sinus: No maxillary sinus tenderness or frontal sinus tenderness. Left Sinus: No maxillary sinus tenderness or frontal sinus tenderness. Mouth/Throat: Lips: [place]. Mouth: Mucous membranes are moist. Pharynx: Uvula midline. Posterior oropharyngeal erythema present. No pharyngeal swelling or oropharyngeal exudate. Cardiovascular: Rate and Rhythm: Normal rate and regular rhythm. Pulmonary: Effort: Pulmonary effort is normal. No respiratory distress. Breath sounds: Decreased breath sounds present. No wheezing or rhonchi. Lymphadenopathy: Cervical: No cervical adenopathy. Skin: General: Skin is warm and dry. Neurological: Mental Status: She is alert and oriented to person, place, and time. Diagnoses and all orders for this visit: COVID-19 (Primary) - POC Influenza A/B, COVID-19 antigen - POCT rapid strep A - molnupiravir 200 mg capsule (EUA); Take 4 capsules (800 mg total) by mouth every 12 (twelve) hours for 5 days Orders Placed This Encounter Procedures POC Influenza A/B, COVID-19 antigen Order Specific Question: Is the Patient experiencing symptoms consistent with COVID? Answer: Yes Order Specific Question: Date of Symptom Onset Answer: 06/21/2022 Order Specific Question: Is the patient hospitalized? Answer: No Order Specific Question: Is the patient admitted to an ICU? Answer: No Order Specific Question: Is this the first COVID-19 test for this patient? Answer: No Order Specific Question: Does the patient currently work in a healthcare facility with direct patient contact? Answer: No Order Specific Question: Is the patient a resident of a congregate care or living setting? Answer: No Order Specific Question: ? Answer: No POCT rapid strep A Assessment/Plan -covid positive -patient does not qualify for paxlovid due to medication interactions, started her on Molnupiravir.Patient verbalized understanding of EUA of this medication. -vitals stable, pt non toxic appearing, no respiratory distress, lungs CTA on exam, lungs 96% on RA. --Will treat supportively and with OTC meds (Flonase, Antihistamine, Sudafed,Tylenol, Motrin) -isolation precautions and ER precautions discussed Disposition Treatment plan including expectations, follow up, [...] to ask questions, questions answered. Patient Education The rapid COVID test performed today in clinic was positive. The following are recommendations for treating the symptoms related to COVID19. What is the difference between Influenza (Flu) and COVID-19? Influenza (Flu) and COVID-19 are both contagious respiratory illnesses, but they are caused by different viruses. COVID-19 is caused by infection with a new coronavirus (called SARS-CoV-2) and flu is caused by infection with influenza viruses. There are some zavaleta differences between flu and COVID-19. COVID-19 seems to spread more easily than flu and causes more serious illnesses in some people. It can also take longer before people show symptoms and people can be contagious for longer. The best way to prevent infection is to avoid being exposed to the virus. Because some of the symptoms of flu and COVID-19 are similar, it may be hard to tell the difference between them based on symptoms alone, and testing may be needed to help confirm a diagnosis.While more is learned every day, there is still a lot that is unknown about COVID-19 and the virus that causes it. The [facility] will be reaching out to all patients who have a positive test for further discussion and monitoring. Continue to self isolate until at least 5 days have passed since symptom onset, your symptoms have improved, and you have been fever free without the use of fever reducing medications for at least 24 hours. The CDC recommends that after 5 days of isolation if you are fever free and symptoms have improved that you can come out of isolation but please continue to wear your mask. You may use acetaminophen and/or ibuprofen to control pain and fever. If you have chronic liver disease, have ever had a stomach ulcer or gastrointestinal bleeding talk with your healthcare provider before using these medicines. Aspirin should never be given to anyone under 18 years of age who is ill with a viral infection or fever. It may cause severe liver or brain damage. Your appetite may be poor, so a light diet is ok. Stay well hydrated by drinking 6 to 8 glasses of fluids per day (water, soft drinks, juices, tea, or soup). Extra fluids will help loosen secretions in the nose and lungs. Vnqo-eiw-zpebyhw cold medicines will not shorten the length of time you???re sick, but they may be helpful for relieving the following symptoms: headache, cough, sore throat, and nasal and sinus congestion. If you take prescription medicines, ask your healthcare provider or pharmacist which wslp-zev-iubrizs medicines are safe to use. (Note: DO NOT use decongestants if you have high blood pressure.) Steps to help prevent the spread of COVID-19 if you are sick If you are sick with COVID-19 or think you might have COVID-19, follow the steps below to care for yourself and to help protect other people in your home and community. Stay home except to get medical care Most people with COVID-19 have mild illness and are able to recover at home without medical care. Do not leave your home, except to get medical care. Do not visit public areas. Take care of yourself. Get rest and stay hydrated. Take isjo-ewh-nyrqcct medicines to help you feelbetter. Stay in touch with your doctor. Call before you get medical care. Be sure to get care if you have trouble breathing, or have any other emergency warning signs, or if you think it is an emergency. Avoid using public transportation, ride-sharing, or taxis. Monitor your symptoms Symptoms of COVID-19 include fever, cough, shortness of breath or difficulty breathing, fatigue, muscle or body aches, headache, new loss of taste or smell, sore throat, congestion, runny nose, nausea, vomiting, or diarrhea. When to Seek Medical Attention If you develop emergency warning signs for COVID-19 get medical attention immediately. Emergency warning signs include*: Trouble breathing Persistent pain or pressure in the chest New confusion or inability to arouse Bluish lips or face *This list is not all inclusive. Please consult your medical provider for any other symptoms that are severe or concerning. Call 911 if you have a medical emergency: If you have a medical emergency and need to call 911, notify the bending machine set up operator that you have or think you might have, COVID-19. If possible, put on a facemask before medical help arrives. Separate yourself from other people in your home, this is known as home isolation As much as possible, you should stay away from other people and pets in your home. You should stay in a specific ???sick room?? if possible. Use a separate bathroom, if available. If you need to be around other people or animals in or outside of the home, wear a mask For more information on sharing close living quarters with someone who is sick visit https://www.cdc .gov/coronavirus/2019-ncov/pgiay-vkan-ikvadj/eldwza-uu-xdhhn-quarters.html For more information on COVID-19 and pets visit https://www.cdc.gov/coronavirus/2019-ncov/faq.html Call ahead before visiting your doctor Many medical visits for routine care are being postponed or done by phone or telemedicine. If you have a medical appointment that cannot be postponed, call your doctor???s office, and tell them you have or may have COVID-19. This will help the office protect themselves and other patients. Jacqueline Clark NP Cosigned by Darwin Bee MD at 06/22/2022 5:15 PM MORTGAGE LOAN COORDINATOR GAGE LOAN COORDINATOR GAGE LOAN COORDINATOR documented in this encounter Plan of Treatment Not on file documented as of this encounter Procedures Procedure Name Priority Date/Time Associated Diagnosis Comments POCT RAPID STREP Routine 06/22/2022 5:02 PM MORTGAGE LOAN COORDINATOR COVID-19 POC INFLUENZA A/B, COVID-19 ANTIGEN Routine 06/22/2022 4:37 PM MORTGAGE LOAN COORDINATOR COVID-19 documented in this encounter Results * POCT rapid strep A (06/22/2022 5:02 PM MORTGAGE LOAN COORDINATOR) Rapid Strep A, POC Negative Swab 06/22/2022 5:02 PM MORTGAGE LOAN COORDINATOR Jacqueline Clark NP POINT OF CARE TEST ORDERABLES Final Result * (ABNORMAL) POC Influenza A/B, COVID-19 antigen (06/22/2022 4:37 PM MORTGAGE LOAN COORDINATOR) Influenza A Ag, POC Negative Negative [facility] Influenza B Ag, POC Negative Negative [facility] COVID-19 Ag POC Positive(A) Presumptive Negative, Invalid [facility] Nasal 06/22/2022 4:37 PM MORTGAGE LOAN COORDINATOR us Jacqueline Clark NP POINT OF CARE TEST ORDERABLES Final Result [facility] [id number] documented in this encounter Visit Diagnoses Diagnosis COVID-19- Primary documented in this encounter Historical Medications * This list may reflect changes made after this encounter. Medication Sig Dispense Quantity Refills Last Filled Start D ate End Date venlafaxine 225 mg tablet extended release 24hr 24 hr tablet 05/12/2022 11/23/2023 added in this encounter Additional Health Concerns Infection Onset Date Last Indicated Resolved Time COVID: Suspected 06/22/2022 06/22/2022 06/22/2022 4:37 PM MORTGAGE LOAN COORDINATOR COVID19 06/22/2022 06/22/2022 07/02/2022 3:05 AM MORTGAGE LOAN COORDINATOR documented as of this encounter Care Teams Chief Legal Officer Relationship Specialty Start Date End Date Bj Montaño MD PCP - General Family Medicine 04/15/22 02/19/24 Adam English DO Presentation Team Member Gastroenterology 03/26/19 06/05/23 documented as of this encounter
--- OUTSIDE RECORDS SUMMARY | 2024-05-20 13:08 | XMS_ITS | Encounter Summary ---
Author Organization [facility] Address [address] [place] [address] Care Team Providers Care Spinner Concrete Pipe Name Role Phone Adam English DO Unavailable [phone] Bj Montaño MD Primary Care Provider [phone] Reason for Referral * MRI/CAT/PET Scan (Routine) - Closed Specialty Diagnoses / Procedures Referred By Kiloac t Referred To Contact Radiology Diagnoses Cough, unspecified Shortness of breath COVID-[address] Chest WO Contrast Vale Mayer NP Phone: tel: fax: [address] [address] Referral ID Status Reason Start Date Expiration Date Visits Re quested Visits Authorized [id number] Closed 08/12/2022 09/11/2023 1 1 Reason for Visit * MRI/CAT/PET Scan (Routine) - Closed Specialty Diagnoses / Procedures Referred By Sisi de león Referred To Contact Radiology Diagnoses Cough, unspecified Shortness of breath COVID-[address] Chest WO Contrast Vale Mayer FISH FARMER Phone: tel: fax: [address] [address] Referral ID Status Reason Start Date Expiration Date Visits Re quested Visits Authorized [id number] Closed 08/12/2022 09/11/2023 1 1 Encounter Details Date Type Department Care Team (Latest Contact Info) Description 08/17/2022 1:00 PM CDT - 08/17/2022 11:59 PM CDT Hospital Encounter [facility] [address] [place] [address] Cough, unspecified; Shortness of breath; COVID-19 Discharge Disposition: Discharge to home or self care Social History Tobacco Use Types Packs/Day Years Used Date Smoking Tobacco: Never Smokeless Tobacco: Never Alcohol Use Standard Drinks/Week Comments Not Currently 0 (1 standard drink = 0.6 oz pur e alcohol) Comments No Sex and Gender Information Value Date Recorded Sex Assigned at Not on file Legal Sex Female 2:22 AM CORPORATE DEVELOPMENT OFFICER Gender Identity Female 05/18/2019 7:17 PM CORPORATE DEVELOPMENT OFFICER Sexual Orientation Straight 05/18/2019 7: 17 PM CORPORATE DEVELOPMENT OFFICER documented as of this encounter Medications at Time of Discharge ALPRAZolam (XANAX) 0.25 mg tablet Take 1 tablet (0.25 mg total) by mouth 3 (three) times a day as needed for anxiety losartan-hydroCHLORO thiazide (HYZAAR) 50-12.5 mg per tablet 1/2 tab am 10/14/2020 SUMAtriptan (IMITREX) 100 mg tablet xqjmeyt-quhruvcsw-ze nc tablet Take 1 tablet by mouth nightly 1000mg/400mg/1 5mg every day 3 cetirizine (ZyrTEC) 10 mg tablet Take 1 tablet (10 mg total) by mouth as needed for allergies 4 L gasseri/B bifidum/B longum (KUHN' [facility] ORAL) Take 1 tablet by mouth every morning [facility] every day unsure med dosage 3 lutein 20 mg tablet Take 1 tablet by mouth nightly hs 3 ondansetron (ZOFRAN) 4 mg tabletIndications:Ac mcgrath gastroenteritis Take 1 tablet (4 mg total) by mouth every 8 (eight) hours as needed for nausea or vomiting 20 tablet 05/12/2022 3 psyllium husk (METAMUCIL ORAL) Take 6 [...] Procedure Name Priority Date/Time Associated Diagnosis Comments CT CHEST WO CONTRAST Schedule Routine, Read Routine (OP Routine) 08/17/2022 1:33 PM CDT Cough, unspecified Shortness of breath COVID-19 documented in this encounter Results * CT Chest WO Contrast (08/17/2022 1:33 PM CDT) Anatomical Region Laterality Modality Body N/A Computed Tomogra phy 08/17/2022 1:54 PM CDT Impressions 08/17/2022 1:57 PM CDT 1. Stable scarring in the right middle lobe and lingula. ??Otherwise, no acute findings in the chest to explain the patient's symptoms. 2. ??Hepatic steatosis. Dictated by: Maxim Hayden MD The radiology attending physician has personally reviewed this study, and had reviewed and/or edited this written report and agrees with it. Electronically signed by: Jaxon Sharp M.D. Narrative 08/17/2022 1:57 PM CDT EXAMINATION: CT CHEST WO CONTRAST HISTORY: Cough and shortness of breath TECHNIQUE: ??Transaxial computed tomographic images of the chest ??were obtained without intravenous contrast according to the standard protocol. COMPARISON: CT abdomen pelvis 02/23/2019 and 08/15/2018 FINDINGS: ?? Imaged thyroid gland is normal. ??No axillary, supraclavicular, mediastinal, or hilar lymphadenopathy. ??The thoracic aorta and main pulmonary artery are normal in caliber. ??Heart size is normal without pericardial effusion. ??Minimal coronary artery atherosclerotic calcifications are present. ??The esophagus is nondistended. ??The central airways are patent. There is a 5 mm left lower lobe pulmonary nodule (series 3 image 88), unchanged compared to prior examination dated 02/23/2019. ??No suspicious pulmonary nodule identified. ??No focal consolidation, pleural effusion, or pneumothorax. ??There is stable scarring in the right middle lobe and lingula. Imaged portions of the upper abdomen show no acute abnormality. Diffuse hepatic steatosis is partially imaged. ??Postsurgical changes of cholecystectomy are noted. Degenerative changes noted in the thoracic spine. ??No suspicious osseous lesion identified. Procedure Note Jaxon Sharp MD - 08/17/2022 EXAMINATION: CT CHEST WO CONTRAST HISTORY: Cough and shortness of breath TECHNIQUE: Transaxial computed tomographic images of the chest were obtained without intravenous contrast according to the standard protocol. COMPARISON: CT abdomen pelvis 02/23/2019 and 08/15/2018 [...] explain the patient's symptoms. 2. Hepatic steatosis. Dictated by: Maxim Hayden MD The radiology attending physician has personally reviewed this study, and had reviewed and/or edited this written report and agrees with it. Electronically signed by: Jaxon Sharp M.D. us Notinfile Unknown IMG CT PROCEDURES Final Result documented in this encounter Visit Diagnoses Diagnosis Cough, unspecified Shortness of breath COVID-19 documented in this encounter Additional Health Concerns Infection Onset Date Last Indicated Resolved Time COVID: Recovered Comment:Added based on recent COVID infection. 07/02/2022 07/04/2022 09/30/2022 3:05 AM C DT documented as of this encounter Care Teams Spinner Concrete Pipe Relationship Specialty Start Date End Date Bj Montaño MD PCP - General Family Medicine 04/15/22 02/19/24 Adam English DO Operational Assistant Gastroenterology 03/26/19 06/05/23 documented as of this encounter
--- OUTSIDE RECORDS SUMMARY | 2024-05-20 13:08 | XMS_ITS | Encounter Summary ---
Author Organization [facility] Address [address] [place] [address] Phone Care Team Providers Care Agricultural Equipment Sales Engineer Name Role Phone RoemojganAdam DO Unavailable [phone] Bj Montaño MD Primary Care Provider [phone] Reason for Referral * Procedure (Routine) - Closed Specialty Diagnoses / Procedures Referred By Contetta de león Referred To Contact Diagnoses Retinal tear of left eye Procedures Repair Retinal Breaks, Laser - OS - Left Eye Jaylon Hanson DO Phone: tel: fax: [facility] (All Locations) Referral ID Status Reason Start Date Expiration Date Visits Re quested Visits Authorized [id number] Closed 07/29/2022 08/28/2023 1 1 Reason for Visit * Reason Comments Spots and/or Floaters * Procedure (Routine) - Closed Specialty Diagnoses / Procedures Referred By Sisi de león Referred To Contact Diagnoses Retinal tear of left eye Procedures Repair Retinal Breaks, Laser - OS - Left Eye Jaylon Hanson DO Phone: tel: fax: [facility] (All Locations) Referral ID Status Reason Start Date Expiration Date Visits Re quested Visits Authorized [id number] Closed 07/29/2022 08/28/2023 1 1 Encounter Details Date Type Department Care Team (Late st Contact Info) Description 07/29/2022 12:30 PM CDT Office Visit [facility] Ophthalmology [address] [place] [address] 1[address] [place] [address] Jaylon Hanson DO [address] [phone] [place] [address] Retinal tear of left eye (Primary Dx) Social History Tobacco Use Types Packs/Day Years Used Date Smoking Tobacco: Never Smokeless Tobacco: Never Alcohol Use Standard Drinks/Week Comments Not Currently 0 (1 standard drink = 0.6 oz pur e alcohol) Comments No Sex and Gender Information Value Date Recorded Sex Assigned at Not on file Legal Sex Female 2:22 AM KNIT TUBING DYER Gender Identity Female 05/18/2019 7:17 PM KNIT TUBING DYER Sexual Orientation Straight 05/18/2019 7: 17 PM KNIT TUBING DYER documented as of this encounter Progress Notes * Jaylon Hanson DO - 07/29/2022 12:30 PM CDT Assessment and Plan Problem List Eye/Vision Problems Retinal tear of left eye - Primary Current Assessment & Plan HST 5'clock left eye (OS). Discussed r/b/a of laser retinopexy and pt agrees to proceed. Tolerated procedure successfully. rtc 1 week at [facility] for repeat exam Relevant Orders Repair Retinal Breaks, Laser - OS - Left Eye (Completed) Follow Up: No follow-ups on file. documented in this encounter Miscellaneous Notes * Assessment & Plan Note - Jaylon Hanson DO - 07/29/2022 1:31 PM CDTAssociated Problem(s): Retinal tear of left eye HST 5'clock left eye (OS). Discussed r/b/a of laser retinopexy and pt agrees to proceed. Tolerated procedure successfully. rtc 1 week at [facility] for repeat exam documented in this encounter Plan of Treatment Not on file documented as of this encounter Procedures Procedure Name Priority Date/Time Associated Diagnosis Comments REPAIR RETINAL BREAKS, LASER - OS - LEFT EYE Routine 07/29/2022 1:58 PM CDT Retinal tear of left eye documented in this encounter Results * Repair Retinal Breaks, Laser - OS - Left Eye (07/29/2022 1:58 PM CDT) Anatomical Region Laterality Modality Head Other Narrative 07/29/2022 1:58 PM CDT Time Out Informed consent was obtained after all risks, benefits and alternatives were explained to the patient. The patient understood, agreed and wished to proceed. Timeout was completed verifying the patient, procedure, laterality and allergies. Anesthesia Anesthetic drops used during this laser treatment included: proparacaine. Argon Laser The green argon laser was used during today's procedures. The following information was notated during the laser treartment: duration of 200 milliseconds, judith microns was the spot size, intensity of 200-300 milliwatt, there were 360 spots, Post-op The patient tolerated the procedure, there were no complications during today's treatment. No prescription medication is needed at this time. The patient was instructed to call immediately for any redness, vision loss, pain, swelling, and draining or pus-like material, fevers, or any other problems.The patient was instructed regarding their follow-up appointment. The patient received written and/or verbal post procedure care education. The attending physician was present for the entire procedure. Jaylon Hanson OPHTH CLINIC PROCEDURES Final Re sult documented in this encounter Visit Diagnoses Diagnosis Retinal tear of left eye- Primary documented in this encounter Additional Health Concerns Infection Onset Date Last Indicated Resolved Time COVID: Recovered Comment:Added based on recent COVID infection. 07/02/2022 07/04/2022 09/30/2022 3:05 AM C DT documented as of this encounter Eye Exam Visual Acuity (Snellen - Linear) Right eye Left eye Dist cc 20/20 20/20 Correction: Glasses Pupils React Right eye pharm dilated Left eye pharm dilated Visual Wheeler Right eye Left eye Full Full Extraocular Movement Right eye Left eye Full Full Neuro/Psych Oriented x3: Yes Mood/Affect: Normal Dilation Both eyes: 1.0% Mydriacyl, 2 .5% Phenylephrine @ 11:58 AM External Exam Right eye Left eye [...] a t 5 oclock far periphery, few [facility] Care Teams Agricultural Equipment Sales Engineer Relationship Specialty Start Date End Date Bj Montaño MD PCP - General Family Medicine 04/15/22 02/19/24 Adam English DO Power Generation Plant Operator Gastroenterology 03/26/19 06/05/23 documented as of this encounter
--- OUTSIDE RECORDS SUMMARY | 2024-05-20 13:08 | XMS_ITS | Encounter Summary ---
Author Organization [facility] Address [address] [place] [address] Phone Care Team Providers Care Senior Javascript Developer Name Role Phone Adam English DO Unavailable [phone] Bj Montaño MD Primary Care Provider Encounter Details Date Type Department Care Team (Late st Contact Info) Description 10/24/2022 Telephone [facility] Ophthalmology [address] [place] [address] Pepper Carey MD [address] [facility] [phone] [place] [address] Social History Tobacco Use Types Packs/Day Years Used Date Smoking Tobacco: Never Smokeless Tobacco: Never Alcohol Use Standard Drinks/Week Comments Not Currently 0 (1 standard drink = 0.6 oz pur e alcohol) Comments No Sex and Gender Information Value Date Recorded Sex Assigned at Not on file Legal Sex Female 2:22 AM BUILDING CONSTRUCTION SUPERVISOR Gender Identity Female 05/18/2019 7:17 PM BUILDING CONSTRUCTION SUPERVISOR Sexual Orientation Straight 05/18/2019 7: 17 PM BUILDING CONSTRUCTION SUPERVISOR documented as of this encounter Miscellaneous Notes * Telephone Encounter - Jarred Ramirez - 10/24/2022 3:33 PM CDT PT is scheduled with retina 11/02. She is ok with UEs for this appt. * Telephone Encounter - Paula Broussard [facility] - 10/24/2022 2:37 PM CDT Pt called stated that she was told to see a retina dr instead of coming to [facility]. Per notes in epic stated Ophthalmology follow-up: in 1-2 weeks at [facility] OU. Pt would like a call back documented in this encounter Plan of Treatment Not on file documented as of this encounter Visit Diagnoses Not on filedocumented in this encounter Care Teams Senior Javascript Developer Relationship Specialty Start Date End Date Bj Montaño MD PCP - General Family Medicine 04/15/22 02/19/24 Adam English DO Slabber Gastroenterology 03/26/19 06/05/23 documented as of this encounter
--- OUTSIDE RECORDS SUMMARY | 2024-05-20 13:08 | XMS_ITS | Encounter Summary ---
Author Organization [facility] Address [address] [place] [address] Phone Care Team Providers Care Automatic Vulcanizing Operator Name Role Phone Adam English DO Unavailable [phone] Bj Montaño MD Primary Care Provider [phone] Reason for Referral * Diagnostic Imaging (Routine) - Closed Specialty Diagnoses / Procedures Referred By Sisi de león Referred To Contact Diagnoses Retinal tear of left eye Posterior vitreous detachment of left eye Procedures OCT, Retina - OU - Both Eyes Abhilash Wills MD Phone: tel: fax: [facility] (All Locations) Referral ID Status Reason Start Date Expiration Date Visits Re quested Visits Authorized [id number] Closed 08/03/2022 09/02/2023 1 1 Reason for Visit * Reason Comments Follow-up Encounter Details Date Type Department Care Team (Late st Contact Info) Description 08/03/2022 12:20 PM CDT Office Visit [facility] Ophthalmology [address] [place] [address] [place] [phone] Retinal tear of left eye (Primary Dx); Posterior vitreous detachment of left eye Social History Tobacco Use Types Packs/Day Years Used Date Smoking Tobacco: Never Smokeless Tobacco: Never Alcohol Use Standard Drinks/Week Comments Not Currently 0 (1 standard drink = 0.6 oz pur e alcohol) Comments No Sex and Gender Information Value Date Recorded Sex Assigned at Not on file Legal Sex Female 2:22 AM ATM TECHNICIAN Gender Identity Female 05/18/2019 7:17 PM ATM TECHNICIAN Sexual Orientation Straight 05/18/2019 7: 17 PM ATM TECHNICIAN documented as of this encounter Progress Notes * Abhilash Wills MD - 08/03/2022 12:20 PM CDT Reason for Visit Today Chief Complaint Follow-up ASSESSMENT/ORDERS/PROCEDURES PERFORMED TODAY Problem List Eye/Vision Problems Retinal tear of left eye - Primary Current Assessment & Plan 1 week s/p retinopexy - appears well barricaded Doing well Return 1 month for DFE OS, sooner PRN. Return precautions discussed Relevant Orders OCT, Retina - OU - Both Eyes (Completed) OCT, Retina - OU - Both Eyes Right Eye Quality was good. Scan locations included subfoveal. Left Eye Quality was good. Scan locations included subfoveal. Notes OD - flat, wnl OS - no posterior hylaoid visible, flat, wnl The signs and symptoms of retinal detachment, tears, infection, elevated intra- ocular pressure werereviewed with the patient. Patient knows to call should they have any of the symptoms. PLAN FOR NEXT VISIT Return for retina 4-6 weeks for DFE OS. documented in this encounter Miscellaneous Notes * Assessment & Plan Note - Abhilash Wills MD - 08/03/2022 1:36 PM CDTAssociated Problem(s): Retinal tear of left eye 1 week s/p retinopexy - appears well barricaded Doing well Return 1 month for DFE OS, sooner PRN. Return precautions discussed documented in this encounter Plan of Treatment Not on file documented as of this encounter Procedures Procedure Name Priority Date/Time Associated Diagnosis Comments OCT, RETINA - OU - BOTH EYES Routine 08/03/2022 1:36 PM CDT Retinal tear of left eye Posterior vitreous detachment of left eye documented in this encounter Results * OCT, Retina - OU - Both Eyes (08/03/2022 1:36 PM CDT) Anatomical Region Laterality Modality Head Optical Coherenc e Tomography Narrative 08/03/2022 1:36 PM CDT Right Eye Quality was good. Scan locations included subfoveal. Left Eye Quality was good. Scan locations included subfoveal. Notes OD - flat, wnl OS - no posterior hylaoid visible, flat, wnl Abhilash Wills MD OPHTH TOMOGRAPH Y Final Result documented in this encounter Visit Diagnoses Diagnosis Retinal tear of left eye- Primary Posterior vitreous detachment of left eye Vitreous degeneration documented in this encounter Additional Health Concerns Infection Onset Date Last Indicated Resolved Time COVID: Recovered Comment:Added based on recent COVID infection. 07/02/2022 07/04/2022 09/30/2022 3:05 AM C DT documented as of this encounter Eye Exam Visual Acuity (Snellen - Linear) Right eye Left eye Dist sc 20/20 -1 20/25 +3 Correction: Glasses Tonometry (Tonopen, 12:46 PM) Right eye Left eye Pressure 16 15 Pupils Dark Light Shape React APD Right eye 4 3 Round Brisk None Left eye 3 2 Round Brisk None Neuro/Psych Oriented x3: Yes Dilation Both eyes: 1.0% Mydriacyl, 2 .5% Phenylephrine @ 12:46 PM External Exam Right eye Left eye [...] Macula Normal Normal Vessels Normal Normal Periphery Normal, no h/t/b on REINFORCING STEEL WORKER horsesho e tear at 5 oclock far periphery s/p barricaded, Laser scar Care Teams Automatic Vulcanizing Operator Relationship Specialty Start Date End Date Bj Montaño MD PCP - General Family Medicine 04/15/22 02/19/24 Adam English DO Telecom Billing Analyst Gastroenterology 03/26/19 06/05/23 documented as of this encounter
--- OUTSIDE RECORDS SUMMARY | 2024-05-20 13:08 | XMS_ITS | Encounter Summary ---
Author Organization [facility] Address [address] [place] [address] Phone Care Team Providers Care Vice President Quality Improvement Name Role Phone Adam English DO Unavailable [phone] Bj Montaño MD Primary Care Provider [phone] Reason for Visit * Reason Comments Follow-up Encounter Details Date Type Department Care Team (Late st Contact Info) Description 09/14/2022 1:20 PM CDT Office Visit [facility] Ophthalmology [address] [place] [address] [place] [phone] Retinal tear of left eye (Primary Dx) Social History Tobacco Use Types Packs/Day Years Used Date Smoking Tobacco: Never Smokeless Tobacco: Never Alcohol Use Standard Drinks/Week Comments Not Currently 0 (1 standard drink = 0.6 oz pur e alcohol) Comments No Sex and Gender Information Value Date Recorded Sex Assigned at Not on file Legal Sex Female 2:22 AM TERRAZZO TILE MAKER Gender Identity Female 05/18/2019 7:17 PM TERRAZZO TILE MAKER Sexual Orientation Straight 05/18/2019 7: 17 PM TERRAZZO TILE MAKER documented as of this encounter Progress Notes * Matteo Vargas MD - 09/14/2022 1:20 PM CDT Assessment and Plan Problem List Eye/Vision Problems Retinal tear of left eye - Primary Current Assessment & Plan 6 weeks s/p retinopexy - appears well barricaded Doing well, no new tears or detachments; tear well barricaded with laser RTC retina PRN, return to routine eyecare providers Return precautions discussed Follow Up: Return if symptoms worsen or fail to improve. Cosigned by Pete Ward MD at 09/16/2022 3:02 PM CDT Associated attestation - Pete Ward MD - 09/16/2022 3:02 PM CDT I have seen, examined, discussed the patient with the resident, was present for procedures performed, and agree with the exam, imaging interpretations, and plan with the following changes/additions: no changes Pete Ward MD 09/16/2022 3:02 PM documented in this encounter Miscellaneous Notes * Assessment & Plan Note - Matteo Vargas MD - 09/14/2022 2:31 PM CDTAssociated Problem(s): Retinal tear of left eye 6 weeks s/p retinopexy - appears well barricaded Doing well, no new tears or detachments; tear well barricaded with laser RTC retina PRN, return to routine eyecare providers Return precautions discussed documented in this encounter [...] eye Left eye Dist cc 20/20 20/25 -2 Correction: Glasses Tonometry (Tonopen, 2:04 PM) Right eye Left eye Pressure 18 17 Pupils Dark Light Shape React APD Right eye 4 3 Round Brisk None Left eye 4 3 Round Brisk None Neuro/Psych Oriented x3: Yes Mood/Affect: Normal Dilation Left eye: 1.0% Mydriacyl, 2. 5% Phenylephrine @ 2:04 PM External Exam Right eye Left eye External Normal Normal Slit Lamp Exam Right eye Left eye Lids/Lashes Normal Normal Conjunctiva/Sclera White and quiet White and ciro et Cornea Clear Clear Anterior Chamber Deep and quiet Deep and quiet Iris Round and reactive Round and lisset ctive Lens tr NS tr NS, CS Anterior Vitreous Normal PVD, - schaeff er's Fundus Exam Right eye Left eye Disc Normal C/D Ratio 0.3 Macula Normal Vessels Normal Periphery horseshoe tear a t 5 oclock far periphery s/p barricaded, Laser scar no new tears or detachments Care Teams Vice President Quality Improvement Relationship Specialty Start Date End Date Bj Montaño MD PCP - General Family Medicine 04/15/22 02/19/24 Adam English DO Sales Receptionist Gastroenterology 03/26/19 06/05/23 documented as of this encounter
--- OUTSIDE RECORDS SUMMARY | 2024-05-20 13:08 | XMS_ITS | Encounter Summary ---
Author Organization [facility] Healthcare Address [address] [place] [address] Care Team Providers Care Drying Unit Felting Machine Operator Name Role Phone Adam English DO Unavailable Bj Montaño MD Primary Care Provider Encounter Details Date Type Department Care Team (Late st Contact Info) Description 08/12/2022 Orders Only [facility] Health Information Management [address] [place] [address] Scanning, Provider Social History Tobacco Use Types Packs/Day Years Used Date Smoking Tobacco: Never Smokeless Tobacco: Never Alcohol Use Standard Drinks/Week Comments Not Currently 0 (1 standard drink = 0.6 oz pur e alcohol) Comments No Sex and Gender Information Value Date Recorded Sex Assigned at Not on file Legal Sex Female 2:22 AM SEAMAN Gender Identity Female 05/18/2019 7:17 PM SEAMAN Sexual Orientation Straight 05/18/2019 7: 17 PM SEAMAN documented as of this encounter Plan of Treatment Not on file documented as of this encounter Procedures Procedure Name Priority Date/Time Associated Diagnosis Comments SCAN - OTHER ORDERS 08/12/2022 documented in this encounter Results * SCAN - OTHER ORDERS (08/12/2022) us Provider Scanning Final Result documented in this encounter Visit Diagnoses Not on filedocumented in this encounter Additional Health Concerns Infection Onset Date Last Indicated Resolved Time COVID: Recovered Comment:Added based on recent COVID infection. 07/02/2022 07/04/2022 09/30/2022 3:05 AM C DT documented as of this encounter Care Teams Drying Unit Felting Machine Operator Relationship Specialty Start Date End Date Bj Montaño MD PCP - General Family Medicine 04/15/22 02/19/24 Adam English DO Photolithographer Gastroenterology 03/26/19 06/05/23 documented as of this encounter
--- OUTSIDE RECORDS SUMMARY | 2024-05-20 13:08 | XMS_ITS | Encounter Summary ---
Author Organization [facility] Address [address] [place] [address] Phone Care Team Providers Care Soap Slabber Name Role Phone Adam English DO Unavailable [phone] Bj Montaño MD Primary Care Provider [phone] Reason for Referral * Procedure (Routine) - Closed Specialty Diagnoses / Procedures Referred By Sisi de león Referred To Contact Diagnoses Abnormal CT scan Procedures Pulmonary Function Test -[facility] Adult PFT Lab- CAM-8D; Oxygen Assessment Titration, Spirometry, Spirometry with Bronchodilator, ABG, Lung Volumes, DLCO; Pleth with Airway Resistance; Room Air ABG; Spirometry Roosevelt Thomas MD [address] [place] [address] Phone: tel: fax: Referral ID Status Reason Start Date Expiration Date Visits Re quested Visits Authorized [id number] Closed 09/07/2022 10/07/2023 1 1 Encounter Details Date Type Department Care Team (Late st Contact Info) Description 09/07/2022 Orders Only [facility] [address] [facility] [address] [place] [address] [place] [address] Roosevelt Thomas MD [address] [place] [address] scan (Primary Dx) Social History Tobacco Use Types Packs/Day Years Used Date Smoking Tobacco: Never Smokeless Tobacco: Never Alcohol Use Standard Drinks/Week Comments Not Currently 0 (1 standard drink = 0.6 oz pur e alcohol) Comments No Sex and Gender Information Value Date Recorded Sex Assigned at Not on file Legal Sex Female 2:22 AM BOILER HOUSE OPERATOR Gender Identity Female 05/18/2019 7:17 PM BOILER HOUSE OPERATOR Sexual Orientation Straight 05/18/2019 7: 17 PM BOILER HOUSE OPERATOR documented as of this encounter Plan of Treatment Not on file documented as of this encounter Results * Pulmonary Function Test - (11/24/2022 8:09 AM CDT) FVC PRE 3.48 L [facility] FVC %PRE PRED 93 % [facility] FVC POST 3.31 L [facility] FVC %POST PRED 88 % [facility] FEV1 PRE 2.78 L [facility] FEV1 %PRE PRED 96 % [facility] FEV1 POST 2.72 L [facility] FEV1 %POST PRED 94 % [facility] FEV1/FVC PRE 79.9 % [facility] FEV1/FVC POST 82.1 % [facility] FRC PL PRE 2.93 L [facility] FRC PL %PRE PRED 85 % [facility] RV PRE 1.94 L [facility] RV %PRE PRED 82 % [facility] TLC PRE 5.46 L [facility] TLC %PRE PRED 91 % [facility] DLCO PRE 27.8 ml/min/mmH g [facility] DLCO %PRE PRED 123 % [facility] FIO2 % 21.00 % [facility] PaO2 84.0 mmHg [facility] PaCO2 39.0 mmHg [facility] pH 7.44 [facility] A-aDO2 POC 17.0 mmHg [facility] METHGB % 0.5 % [facility] COHb POC 1.2 % [facility] HCO3 26.5 mEq/L [facility] Anatomical Region Laterality Modality PFT 11/24/2022 7:17 AM CDT Narrative 11/30/2022 11:38 AM CDT Table formatting from the original result was not included. [facility] Division of Pulmonary & Critical Care Medicine [address]; [place] [address]; [place], [place] ??[address]; [phone] Pulmonary Function Laboratory Pulmonary Stress Test Simple/Oxygen [...] Work [distance (m) x body wt (kg)]: 89290 kg.m (normal >60,000kg.m) Oxygen required to maintain [...] with the written final report. PFT performed at:->[facility] Adult PFT Lab- CAM-8D Procedure:->Oxygen Assessment Titration Procedure:->Spirometry Procedure:->Spirometry with Bronchodilator Procedure:->ABG Procedure:->Lung Volumes Procedure:->DLCO Lung Volumes via:->Pleth with Airway Resistance ABG:->Room Air ABG DLCO:->Spirometry Roosevelt Thomas MD PFT ORDERABLES Final Result documented in this encounter Visit Diagnoses Diagnosis Abnormal CT scan- Primary Other nonspecific (abnormal) findings on radiological and other examinations of body structure Abnormal CT scan Other nonspecific (abnormal) findings on radiological and other examinations of body structure documented in this encounter Additional Health Concerns Infection Onset Date Last Indicated Resolved Time COVID: Recovered Comment:Added based on recent COVID infection. 07/02/2022 07/04/2022 09/30/2022 3:05 AM C DT documented as of this encounter Care Teams Soap Slabber Relationship Specialty Start Date End Date Bj Montaño MD PCP - General Family Medicine 04/15/22 02/19/24 Adam English DO Channel Worker Gastroenterology 03/26/19 06/05/23 documented as of this encounter
--- OUTSIDE RECORDS SUMMARY | 2024-05-20 13:08 | XMS_ITS | Encounter Summary ---
Author Organization [facility] Address [address] [place] [address] Phone Care Team Providers Care Skip Tracer Name Role Phone Adam English DO Unavailable [phone] Bj Montaño MD Primary Care Provider [phone] Encounter Details Date Type Department Care Team (Late st Contact Info) Description 11/10/2022 Orders Only [facility] [address] [facility] 8th [place] [address] [place] [address] Roosevelt Thomas MD [address] [place] [address] scan (Primary Dx) Social History Tobacco Use Types Packs/Day Years Used Date Smoking Tobacco: Never Smokeless Tobacco: Never Alcohol Use Standard Drinks/Week Comments Not Currently 0 (1 standard drink = 0.6 oz pur e alcohol) Comments No Sex and Gender Information Value Date Recorded Sex Assigned at Not on file Legal Sex Female 2:22 AM LOGISTICS SYSTEM ENGINEER Gender Identity Female 05/18/2019 7:17 PM LOGISTICS SYSTEM ENGINEER Sexual Orientation Straight 05/18/2019 7: 17 PM LOGISTICS SYSTEM ENGINEER documented as of this encounter Plan of Treatment Not on file documented as of this encounter Results * XR Chest Pa [...] 2 view chest radiograph Procedure Note Amandeep Chaidez MD - 11/23/2022 EXAMINATION: 2 view chest [...] structure documented in this encounter Care Teams Skip Tracer Relationship Specialty Start Date End Date Bj Montaño MD PCP - General Family Medicine 04/15/22 02/19/24 Adam English DO Career And Technology Education Teacher Gastroenterology 03/26/19 06/05/23 documented as of this encounter
--- OUTSIDE RECORDS SUMMARY | 2024-05-20 13:08 | XMS_ITS | Encounter Summary ---
Author Organization [facility] Address [address] [place] [address] Care Team Providers Care Transplant Registered Nurse Name Role Phone Adam English DO Unavailable [phone] Bj Montaño MD Primary Care Provider [phone] Reason for Visit * Reason Onset Date Comments Covid-19 Home Monitoring 06/29/2022 Encounter Details Date Type Department Care Team (Late st Contact Info) Description 06/29/2022 Telephone [facility] Accountable Care Organization [address] [place] [address] Janie Ott MA [address] [place] [id number] Covid-19 Home Monitoring Social History Tobacco Use Types Packs/Day Years Used Date Smoking Tobacco: Never Smokeless Tobacco: Never Alcohol Use Standard Drinks/Week Comments Not Currently 0 (1 standard drink = 0.6 oz pur e alcohol) Comments No Sex and Gender Information Value Date Recorded Sex Assigned at Not on file Legal Sex Female 2:22 AM DISABILITY INSURANCE HEARING OFFICER Gender Identity Female 05/18/2019 7:17 PM DISABILITY INSURANCE HEARING OFFICER Sexual Orientation Straight 05/18/2019 7: 17 PM DISABILITY INSURANCE HEARING OFFICER documented as of this encounter Miscellaneous Notes * Telephone Encounter - Janie Ott MA - 06/29/2022 2:51 PM CST This patient is enrolled in the COVID-19 Home Monitoring Program and had not responded to the dailysymptom questionnaire. Telephonic outreach attempted to assess patient???s symptoms. Home Monitoring symptom questionnaire was not completed today, because the patient could not be reached. Symptom Questionnaire to be completed by patient tomorrow. [facility] day 1 BILITY INSURANCE HEARING OFFICER documented in this encounter Plan of Treatment Not on file documented as of this encounter Visit Diagnoses Not on filedocumented in this encounter Additional Health Concerns Infection Onset Date Last Indicated Resolved Time COVID19 06/22/2022 06/22/2022 07/02/2022 3:05 AM DISABILITY INSURANCE HEARING OFFICER documented as of this encounter Care Teams Transplant Registered Nurse Relationship Specialty Start Date End Date Bj Montaño MD PCP - General Family Medicine 04/15/22 02/19/24 Adam English DO Arch Cushion Skiving Machine Operator Gastroenterology 03/26/19 06/05/23 documented as of this encounter
--- OUTSIDE RECORDS SUMMARY | 2024-05-20 13:08 | XMS_ITS | Encounter Summary ---
Author Organization [facility] Healthcare Address [address] [place] [address] Care Team Providers Care Car Carder Name Role Phone Adam English DO Unavailable [phone] Bj Montaño MD Primary Care Provider [phone] Encounter Details Date Type Department Care Team (Latest Contact Info) Description 07/18/2022 5:00 PM TANKER SERVICEMAN - 07/18/2022 11:59 PM TANKER SERVICEMAN Hospital Encounter [address] [address] Acute cystitis with hematuria Discharge Disposition: Discharge to home or self care Social History Tobacco Use Types Packs/Day Years Used Date Smoking Tobacco: Never Smokeless Tobacco: Never Alcohol Use Standard Drinks/Week Comments Not Currently 0 (1 standard drink = 0.6 oz pur e alcohol) Comments No Sex and Gender Information Value Date Recorded Sex Assigned at Not on file Legal Sex Female 2:22 AM TANKER SERVICEMAN Gender Identity Female 05/18/2019 7:17 PM TANKER SERVICEMAN Sexual Orientation Straight 05/18/2019 7: 17 PM TANKER SERVICEMAN documented as of this encounter Medications at Time of Discharge ALPRAZolam (XANAX) 0.25 mg tablet Take 1 tablet (0.25 mg total) by mouth 3 (three) times a day as needed for anxiety losartan-hydroCHLORO thiazide (HYZAAR) 50-12.5 mg per tablet 1/2 tab am 10/14/2020 SUMAtriptan (IMITREX) 100 mg tablet nitrofurantoin monohydrate (Macrobid) 100 mg capsuleIndications:U rinary Tract/Genitourinary Infection Take 1 capsule (100 mg total) by mouth 2 (two) times a day for 5 days 10 capsule 07/18/2022 3 qnqlvxo-rjcjejskk-dj nc tablet Take 1 tablet by mouth nightly 1000mg/400mg/1 5mg every day 3 cetirizine (ZyrTEC) 10 mg tablet Take 1 tablet (10 mg total) by mouth as needed for allergies 4 L gasseri/B bifidum/B longum ([facility] ORAL) Take 1 tablet by mouth every morning [facility] every day unsure med dosage 3 lutein 20 mg tablet Take 1 tablet by mouth nightly hs 3 ondansetron (ZOFRAN) 4 mg tabletIndications:Ac kaw gastroenteritis Take 1 tablet (4 mg total) [...] Miscellaneous Notes * Result Encounter Note - Jacqueline Clark NP - 07/18/2022 11:59 PM TANKER SERVICEMAN Please alert patient that urine culture was negative. She can stop taking antibiotics. If s/s persist, she should follow up with PCP. ER SERVICEMAN documented in this encounter Plan of Treatment Not on file documented as of this encounter Procedures Procedure Name Priority Date/Time Associated Diagnosis Comments URINE CULTURE Routine 07/18/2022 5:00 PM TANKER SERVICEMAN Acute cystitis with hematuria documented in this encounter Results * Urine culture Urine, clean voided (07/18/2022 5:00 PM TANKER SERVICEMAN) Report Final Report: Less than 100,000 colonies/mL (clinically insignificant growth based on current clinical standards) BRITTANY RIVERA Comment:Testing performed by : [facility], [address] [place]., [address] Organism (CLINICALLY INSIGNIFICANT GROWTH BRITTANY Urine, clean voided 07/18/2022 5:00 PM TANKER SERVICEMAN 07/19/2022 3:32 AM TANKER SERVICEMAN Narrative BRITTANY - 07/20/2022 7:51 AM TANKER SERVICEMAN Testing performed by [facility] Microbiology Laboratory ([phone]) Jacqueline Clark BOAT AND PLANT UTILITY SUPERVISOR LAB MICROBIOLOGY - GENERAL ORD ERABLES Final Result [facility] [address] Department [place] [address] documented in this encounter Visit Diagnoses Diagnosis Acute cystitis with hematuria documented in this encounter Additional Health Concerns Infection Onset Date Last Indicated Resolved Time COVID: Recovered Comment:Added based on recent COVID infection. 07/02/2022 07/04/2022 09/30/2022 3:05 AM C DT documented as of this encounter Care Teams Car Carder Relationship Specialty Start Date End Date Bj Montaño MD PCP - General Family Medicine 04/15/22 02/19/24 Adam English DO Professor Of Medicine Gastroenterology 03/26/19 06/05/23 documented as of this encounter
--- OUTSIDE RECORDS SUMMARY | 2024-05-20 13:08 | XMS_ITS | Encounter Summary ---
Author Organization [facility] Healthcare Address [address] [place] [address] Care Team Providers Care Animal Doctor Name Role Phone Adam English DO Unavailable [phone] Bj Montaño MD Primary Care Provider [phone] Reason for Visit * Reason Comments Chest Pain Shortness of Breath Encounter Details Date Type Department Care Team (Late st Contact Info) Description 07/19/2022 3:02 AM BUILDING TRADES TEACHER - 07/19/2022 4:10 AM [facility] Emergency [facility] Emergency Department [facility] [place], [place] [id number] Yamila Saunders MD [address] [place] [address] [place] [address] Chest wall pain (Primary Dx); Flank pain Discharge Disposition: Discharge to home or self care Social History Tobacco Use Types Packs/Day Years Used Date Smoking Tobacco: Never Smokeless Tobacco: Never Alcohol Use Standard Drinks/Week Comments Not Currently 0 (1 standard drink = 0.6 oz pur e alcohol) Comments No Sex and Gender Information Value Date Recorded Sex Assigned at Not on file Legal Sex Female 2:22 AM BUILDING TRADES TEACHER Gender Identity Female 05/18/2019 7:17 PM BUILDING TRADES TEACHER Sexual Orientation Straight 05/18/2019 7: 17 PM BUILDING TRADES TEACHER documented as of this encounter Last Filed Vital Signs Vital Sign Reading Time Taken Comments Blood Pressure 112/68 07/19/2022 4:00 AM BUILDING TRADES TEACHER Pulse 91 07/19/2022 4:00 AM BUILDING TRADES TEACHER Temperature 37.5 ??C (99.5 ??F) 07/19/2022 1:32 AM CS T Respiratory Rate 20 07/19/2022 4:00 AM BUILDING TRADES TEACHER Oxygen Saturation 94% 07/19/2022 4:00 AM BUILDING TRADES TEACHER Inhaled Oxygen Concentration - - Weight 134.2 kg (295 lb 13.7 oz) 07/19/2022 1:32 AM BUILDING TRADES TEACHER Height - - Body Mass Index 42.45 07/18/2022 9:49 AM BUILDING TRADES TEACHER documented in this encounter Discharge Instructions * Attachments The following attachments cannot be sent through Care Everywhere. * Acute Abdominal Pain (AfterCare(R) Instructions(ER/ED)) (Ecuadorean) documented in this encounter Medications at Time [...] for 5 days 10 capsule 07/18/2022 3 ifjhean-wcjrqwwcm-qk nc tablet Take 1 tablet by mouth [...] or self care documented in this encounter ED Notes * Yamila Saunders MD - 07/19/2022 3:48 AM CST HPI Chief Complaint Patient presents with Chest Pain Shortness of Breath HPI 3:48 AM Josy Fiore is a 62 y.o. female presenting to the ED c/o left-sided flank pain. Patient had COVID 2 months ago. Since then she is had intermittent upper respiratory infections. Left-sided chest and abdominal pain with shortness of breath. Discomfort is worsened with cough and deep inspiration. Denies fevers chills. Patient History: Past Medical History: Diagnosis Date Anxiety Arthritis [...] CANCER EXCISION Right 1994 V-Y flap R gnosticism for BCCa TERATOMA EXCISION Left 1995 L [...] control/protection: None Alcohol Use: Not on file No current facility-administered medications for this encounter. Current Outpatient Medications: ALPRAZolam (XANAX) 0.25 mg tablet mhppsph-hdaymqguq-fmpn tablet cetirizine (ZyrTEC) 10 mg tablet L gasseri/B bifidum/B longum (OrSense ORAL) losartan-hydroCHLOROthiazide (HYZAAR) 50-12.5 mg per tablet lutein 20 mg tablet nitrofurantoin monohydrate (Macrobid) 100 mg capsule ondansetron (ZOFRAN) 4 mg tablet psyllium husk (METAMUCIL ORAL) soy isofla/blk cohosh/mag bark (ESTROVEN ORAL) SUMAtriptan (IMITREX) 100 mg tablet venlafaxine 225 mg tablet extended release 24hr 24 hr tablet Review of Systems Review of Systems All systems reviewed and are neg or non contributory for this patients presentation today other than as stated in the HPI . Physical Exam ED Triage Vitals [07/19/22 0132] Temp Pulse Resp BP SpO2 37.5 ??C (99.5 ??F) 93 20 147/86 99 % Temp src Heart Rate Source Patient Position BP Location FiO2 (%) Oral -- -- -- -- Height Height Method Weight Weight Method -- -- 134.2 kg (295 lb 13.7 oz) Standing scale Physical Exam Vitals and nursing note reviewed. Constitutional: General: She is not in acute distress. Appearance: Normal appearance. She is not ill-appearing. HENT: Head: Normocephalic. Cardiovascular: Rate and Rhythm: Normal rate. Pulmonary: Effort: Pulmonary effort is normal. No respiratory distress. Musculoskeletal: General: Normal range of motion. Cervical back: Normal range of motion. No rigidity. Skin: General: Skin is warm and dry. Neurological: General: No focal deficit present. Mental Status: She is alert and oriented to person, place, and time. Psychiatric: Mood and Affect: Mood normal. Behavior: Behavior normal. Procedures MDM Labs Reviewed URINALYSIS AND REFLEX TO MICROSCOPIC AND CULTURE - Abnormal Result Value Color, ur Yellow Clarity, ur Cloudy (*) Specific gravity, ur 1.017 pH, urine 5.0 Protein, ur ql Negative Glucose, ur ql Negative Ketones, ur Negative Bilirubin, ur Negative Blood, ur Negative Urobilinogen, ur <2.0 Nitrite, ur Negative Leukocyte esterase, ur 1+ (*) UA reflex comment Reflex to microscopic UA will be performed. Narrative: Urine pH is affected by diet, medications, systemic acid-base disturbances, and renal tubular function. pH may affect urinary stone formation. For example, urine pH below 6.0 may help reduce the tendency for calcium phosphate stones and pH greater than 6.0 may reduce the tendency for uric acid stone formation. Source: R[employer].Last revised 05-25-2017 COMPREHENSIVE METABOLIC PANEL - Abnormal Sodium 139 Potassium, pl 3.9 Chloride 100 CO2 27 Anion gap 12 BUN 15 Creatinine 0.80 Glucose 115 Calcium 9.4 Bilirubin, total 0.6 Protein, pl 7.6 Albumin 4.4 Alk phos 50 ALT 51 (*) AST 42 DIFFERENTIAL AUTO - Abnormal Neutrophil abs 7.6 (*) Imm gran abs 0.0 Lymphocyte abs 1.5 Monocyte abs 0.6 Eosinophil abs 0.2 Basophil abs 0.0 Neutrophil pct 77.2 Imm gran pct 0.3 Lymphocyte pct 14.7 Monocyte pct 5.6 Eosinophil pct 1.8 Basophil pct 0.4 URINALYSIS, MICROSCOPIC ONLY - Abnormal WBC, ur 0-5 RBC, ur 0-2 Epithelial cells, squamous, ur >50 (*) Mucous, ur Present (*) Culture Reflex Comment Value: Reflex conditions for urine culture (WBC >10) not met. CBC WITH AUTO DIFFERENTIAL WBC 9.9 Hgb 14.6 Hct 43.1 Plt 233 MPV 10.0 RBC 4.71 MCV 91.5 MCH 31.0 MCHC 33.9 RDW CV 13.1 RDW SD 43.8 NRBC abs 0.00 TROPONIN T HIGH-SENSITIVITY SERIES (BASELINE, 2HR, 4HR, 6HR) Trop T hs <6 D-DIMER, QUANTITATIVE D-Dimer 280 TROPONIN T HIGH-SENSITIVITY 2-HOUR Trop T hs <6 Trop T hs delta 0 Trop T hs interp Insignificant EGFR eGFR 82 TROPONIN T HIGH-SENSITIVITY 4-HR TROPONIN T HIGH-SENSITIVITY 6-HOUR XR Chest 1 Vw Portable Final Result BP 147/86 Pulse 93 Temp 37.5 ??C (99.5 ??F) (Oral) Resp 20 Wt 134.2 kg (295 lb 13.7 oz) SpO2 99% BMI 42.45 kg/m?? MDM Amount and/or Complexity of Data Reviewed Clinical lab tests: reviewed Tests in the radiology section of CPT??: reviewed ED Course as of 07/19/22 0357 Time: 07/19 349 Comment: Patient is a pleasant female who was in no distress. Her exam is grossly benign. Vital signs stable. Troponin delta 0. Urinalysis likely contaminated. D-dimer negative. White blood cell count normal. Electrolytes unremarkable By: Yaimla Saunders MD Time: 07/19 349 Comment: Chest x-ray findings consistent with atelectasis By: Yamila Saunders MD This examination was transcribed using the Victiv voice recognition system without human egg breaker. In an effort to expedite patient care, this report has not been adjusted for typographical, grammatical, and syntax by a trained bio medical technician. Clinical Impression: Chest wall pain Flank pain Yamila Saunders MD 07/19/22621 DING TRADES TEACHER * Devon Hill RN - 07/19/2022 1:31 AM CST Pt arrived via POV with c/o intermittent, left-sided chest pain with accompanying SOB since being dx'd with COVID on 06/22. Pain is worsened with cough, deep inspiration. DING TRADES TEACHER documented in this encounter Plan of Treatment Not on file documented as of this encounter Procedures Procedure Name Priority Date/Time Associated Diagnosis Comments URINALYSIS AND REFLEX TO MICROSCOPIC AND CULTURE STAT 07/19/2022 3:12 AM BUILDING TRADES TEACHER URINALYSIS, MICROSCOPIC ONLY STAT 07/19/2022 3:12 AM BUILDING TRADES TEACHER TROPONIN T HIGH-SENSITIVITY 2-HOUR Timed 07/19/2022 3:01 AM BUILDING TRADES TEACHER XR CHEST 1 VIEW ED 07/19/2022 2:08 AM BUILDING TRADES TEACHER TROPONIN T HIGH-SENSITIVITY SERIES (BASELINE, 2HR, 4HR, 6HR) STAT 07/19/2022 1:28 AM BUILDING TRADES TEACHER EGFR STAT 07/19/2022 1:28 AM BUILDING TRADES TEACHER DIFFERENTIAL AUTO STAT 07/19/2022 1:2 8 AM BUILDING TRADES TEACHER CBC WITH AUTO DIFFERENTIAL STAT 07/19/2022 1:28 AM BUILDING TRADES TEACHER D-DIMER, QUANTITATIVE STAT 07/19/2022 1:28 AM BUILDING TRADES TEACHER COMPREHENSIVE METABOLIC PANEL STAT 07/19/2022 1:28 AM BUILDING TRADES TEACHER ECG 12-LEAD STAT 07/19/2022 1:21 AM BUILDING TRADES TEACHER documented in this encounter Results * (ABNORMAL) Urinalysis, microscopic only (07/19/2022 3:12 AM BUILDING TRADES TEACHER) WBC, ur 0-5 0 - 5 /HPF BRITTANY Comment:Testing performed by : [address] [address] RBC, ur 0-2 0 - 2 /HPF BRITTANY Comment:Testing performed by : [address] [address] Epithelial cells, squamous, ur >50(A) 0 - 5 /HPF BRITTANY Comment:Testing performed by : [address] [address] Mucous, ur Present(A) BRITTANY Comment:Testing performed by : [address] [address] Culture Reflex Comment Reflex conditions for urine culture (WBC >10) not met. BRITTANY Comment:Testing performed by : [address] [address] Urine 07/19/2022 3:12 AM BUILDING TRADES TEACHER 07/19/2022 3:16 AM BUILDING TRADES TEACHER Yamila Saunders MD LAB URINE ORDERABLES Temi brito Result [facility] [address] [facility] Department [place] [address] * (ABNORMAL) Urinalysis reflex to microscopic and culture Urine (07/19/2022 3:12 AM BUILDING TRADES TEACHER) Color, ur Yellow Yellow BRITTANY Comment:Testing performed by : [address] [address] Clarity, ur Cloudy(A) Clear BRITTANY Comment:Testing performed by : [address] [address] Specific gravity, ur 1.017 1.003 - 1.030 BRITTANY Comment:Testing performed by : [address] [address] pH, urine 5.0 BRITTANY Comment:Testing performed by : [address] [address] Protein, ur ql Negative Negative BRITTANY Comment:Testing performed by : [address] [address] Glucose, ur ql Negative Negative BRITTANY Comment:Testing performed by : [address] [address] Ketones, ur Negative Negative BRITTANY Comment:Testing performed by : [address] [address] Bilirubin, ur Negative Negative BRITTANY Comment:Testing performed by : [address] [address] Blood, ur Negative Negative BRITTANY Comment:Testing performed by : [address] [address] Urobilinogen, ur <2.0 <2.0 mg/dL BRITTANY Comment:Testing performed by : [address] [address] Nitrite, ur Negative Negative BRITTANY Comment:Testing performed by : [address] [address] Leukocyte esterase, ur 1+(A) Negative BRITTANY CERNA Comment:Testing performed by : [address] [address] UA reflex comment Reflex to microscopic UA will be performed. BRITTANY CERNA Comment:Testing performed by : [address] [address] Urine 07/19/2022 3:12 AM BUILDING TRADES TEACHER 07/19/2022 3:16 AM BUILDING TRADES TEACHER Narrative BRITTANY CERNA - 07/19/2022 3:21 AM BUILDING TRADES TEACHER ?? Urine pH is affected by diet, medications, systemic acid-base disturbances, and renal tubular function. ??pH may affect urinary stone formation. ??For example, urine pH below 6.0 may help reduce the tendency for calcium phosphate stones and pH greater than 6.0 may reduce the tendency for uric acid stone formation. Source: Rizvi [employer]. Last revised 05-25-2017 us Yamila Saunders MD LAB MICROBIOLOGY - GENERA L ORDERABLES Final Result BRITTANY [address] [facility] Department of Laboratories [place], [place] [id number] * Troponin T high-sensitivity 2-hour (07/19/2022 3:01 AM BUILDING TRADES TEACHER) Trop T hs <6 <=14 ng/L BRITTANY CERNA Comment: Interpretive Data For further hscTnT resources including the diagnostic algorithm and an aid in interpretation, copy and paste this link: https://nrl.testcatalog.org/show/hsTrop Current Interpretive Data last revised 2020. Testing performed by: [address] [address] Trop T hs delta 0 ng/L BRITTANY CERNA Comment:Testing performed by : [address] [address] Trop T hs interp Insignificant BRITTANY CERNA Comment:Testing performed by : [address] [address] Blood 07/19/2022 3:01 AM BUILDING TRADES TEACHER 07/19/2022 3:04 AM BUILDING TRADES TEACHER Yamila Saunders MD LAB BLOOD ORDERABLES Temi daryl Result [facility]ANY [facility] [address] [facility] Department [place] [address] * XR Chest 1 Vw Portable (07/19/2022 2:08 AM BUILDING TRADES TEACHER) Anatomical Region Laterality Modality Body, Chest N/A Computed Radiogr aphy 07/19/2022 2:43 AM BUILDING TRADES TEACHER Narrative 07/19/2022 2:44 AM BUILDING TRADES TEACHER EXAM DESCRIPTION: ?? XR CHEST 1 VIEW REASON FOR STUDY: ?? chest pain ?? intermittent, left-sided chest pain with accompanying SOB since being dx'd with COVID on 06/22. Pain is worsened with cough, deep inspiration. ?? TECHNIQUE: ?? Single ??radiographic view of the chest acquired. COMPARISON: ?? None FINDINGS: LUNGS/PLEURA: Streaky airspace opacity right lower lobe. ?? No focal consolidation or pneumothorax. No pleural effusion. HEART/MEDIASTINUM: ?? Heart size is normal. Normal mediastinal and hilar contours. HARDWARE/LINES/TUBES: ?? None. BONES: ?? No acute findings. OTHER: ?? No other significant finding. IMPRESSION: ?? Right lower lobe streaky opacity compatible with atelectasis. THIS IS AN ELECTRONICALLY VERIFIED FINAL REPORT 07/19/2022 2:44 AM - Electronically signed by ??Tien Garcia M.D. BB: BYRON D: ??07/19/2022 2:44 AM T: ??07/19/2022 2:44 AM Report ID: [id number] Reading Location: ??[id number] Procedure Note Tien Garcia MD PhD - 07/19/2022 EXAM DESCRIPTION: XR CHEST 1 VIEW REASON FOR STUDY: chest pain intermittent, left-sided chest pain with accompanying SOB since being dx'd with COVID on 06/22. Pain is worsened with cough, deep inspiration. TECHNIQUE: Single radiographic view of the chest acquired. COMPARISON: None FINDINGS: LUNGS/PLEURA: Streaky airspace opacity right lower lobe. Nofocal consolidation or pneumothorax. No pleural effusion. HEART/MEDIASTINUM: Heart size is normal. Normal mediastinal and hilar contours. HARDWARE/LINES/TUBES: None. BONES: No acute findings. OTHER: No other significant finding. IMPRESSION: Right lower lobe streaky opacity compatible withatelectasis. THIS IS AN ELECTRONICALLY VERIFIED FINAL REPORT 07/19/2022 2:44 AM - Electronically signed by Tien Garcia M.D. BB: BYRON Report ID: [id number] Reading Location: [place] [address] Yamila Saunders MD IMG XR PROCEDURES Final R esult * eGFR (07/19/2022 1:28 AM BUILDING TRADES TEACHER) eGFR 82 mL/min/1. 73 m2 BRITTANY CERNA Comment: Interpretive Data Reference Interval Normal ?>/= [...] Current interpretive data was last reviewed 2021. Testing performed by: [address] [address] Blood 07/19/2022 1:28 AM BUILDING TRADES TEACHER 07/19/2022 1:39 AM BUILDING TRADES TEACHER us Yamlia Saunders MD LAB BLOOD ORDERABLES Temi brito Result [facility] [address] [facility] Department [place] [address] * (ABNORMAL) Differential, auto (07/19/2022 1:28 AM BUILDING TRADES TEACHER) Neutrophil abs 7.6(H) 1.7 - 6.5 K/cumm BRITTANY Comment:Testing performed by : [address] [address] Imm gran abs 0.0 0.0 - 0.1 K/cumm BRITTANY Comment:Testing performed by : [address] [address] Lymphocyte abs 1.5 0.8 - 3.3 K/cumm BRITTANY Comment:Testing performed by : [address] [address] Monocyte abs 0.6 0.2 - 0.8 K/cumm BRITTANY Comment:Testing performed by : [address] [address] Eosinophil abs 0.2 0.0 - 0.5 K/cumm BRITTANY Comment:Testing performed by : [address] [address] Basophil abs 0.0 0.0 - 0.1 K/cumm BRITTANY Comment:Testing performed by : [address] [address] Neutrophil pct 77.2 % BRITTANY Comment: Interpretive Data Percent cell count reference ranges are not reported, since discordance with absolute values may lead to misinterpretation of CBC data. Current Interpretive Data was last revised on 2017. Testing performed by: [address] [address] Imm gran pct 0.3 % [facility] Comment: Interpretive Data Percent cell count reference ranges are not reported, since discordance with absolute values may lead to misinterpretation of CBC data. Current Interpretive Data was last revised on 2017. Testing performed by: [address] [address] Lymphocyte pct 14.7 % [facility] Comment: Interpretive Data Percent cell count reference ranges are not reported, since discordance with absolute values may lead to misinterpretation of CBC data. Current Interpretive Data was last revised on 2017. Testing performed by: [address] [address] Monocyte pct 5.6 % [facility] Comment: Interpretive Data Percent cell count reference ranges are not reported, since discordance with absolute values may lead to misinterpretation of CBC data. Current Interpretive Data was last revised on 2017. Testing performed by: [address] [address] Eosinophil pct 1.8 % [facility] Comment: Interpretive Data Percent cell count reference ranges are not reported, since discordance with absolute values may lead to misinterpretation of CBC data. Current Interpretive Data was last revised on 2017. Testing performed by: [address] [address] Basophil pct 0.4 % [facility] Comment: Interpretive Data Percent cell count reference ranges are not reported, since discordance with absolute values may lead to misinterpretation of CBC data. Current Interpretive Data was last revised on 2017. Testing performed by: [address] [address] Blood 07/19/2022 1:28 AM BUILDING TRADES TEACHER 07/19/2022 1:39 AM BUILDING TRADES TEACHER us Yamila Saunders MD LAB BLOOD ORDERABLES Temi brito Result [facility] [address] [facility] Department [place] [address] * D-dimer, quantitative (07/19/2022 1:28 AM BUILDING TRADES TEACHER) D-Dimer 280 <=499 ng/mL FEU BRITTANY CERNA Comment: Interpretive data FDA approved the D-dimer, in conjunction with a low or moderate pretest probability score, to exclude venous thromboembolic events (VTE) (PE and DVT) in outpatients when the D-dimer result is < 500 ng/ml FEU. ?? Evidence supports using an age-adjusted D-dimer cut-off for outpatients older than 50 (age x 10) to improve specificity without sacrificing sensitivity. Example: age 68, VTE cut-off 680 ng/ml FEU. References; Schouten HT et al. Brit Med J. 2013;346:f2492. Enrique et al. Annals Int Med. 2015;163:701-11. Current interpretive data was last revised on 2019. Testing performed by: [address] [address] Blood 07/19/2022 1:28 AM BUILDING TRADES TEACHER 07/19/2022 1:39 AM BUILDING TRADES TEACHER us Yamila Saunders MD LAB BLOOD ORDERABLES Temi l Result [facility] [address] [facility] Department [place] [address] * Troponin T high-sensitivity series (baseline, 2hr, 4hr, 6hr) (07/19/2022 1:28 AM BUILDING TRADES TEACHER) Trop T hs <6 <=14 ng/L BRITTANY CERNA Comment: Interpretive Data For further hscTnT resources including the diagnostic algorithm and an aid in interpretation, copy and paste this link: https://nrl.testcatalog.org/show/hsTrop Current Interpretive Data last revised 2020. Testing performed by: [address] [address] Blood 07/19/2022 1:28 AM BUILDING TRADES TEACHER 07/19/2022 1:39 AM BUILDING TRADES TEACHER us Yamila Saunders MD LAB BLOOD ORDERABLES Temi brito Result [facility] [address] [facility] Department [place] [address] * (ABNORMAL) Comprehensive metabolic panel (07/19/2022 1:28 AM BUILDING TRADES TEACHER) Sodium 139 135 - 145 mmol/L BRITTANY Comment:Testing performed by : [address] [address] Potassium, pl 3.9 3.3 - 4.9 mmol/L BRITTANY Comment:Testing performed by : [address] [address] Chloride 100 97 - 110 mmol/L BRITTANY Comment:Testing performed by : [address] [address] CO2 27 22 - 32 mmol/L BRITTANY Comment:Testing performed by : [address] [address] Anion gap 12 2 - 15 mmol/L BRITTANY Comment:Testing performed by : [address] [address] BUN 15 8 - 25 mg/dL BRITTANY Comment:Testing performed by : [address] [address] Creatinine 0.80 0.60 - 1.10 mg/dL BRITTANY Comment:Testing performed by : [address] [address] Glucose 115 70 - 199 mg/dL BRITTANY Comment: Interpretive Data Fasting glucose >/= 126 [...] Current interpretive data was last revised 2022. Testing performed by: [address] [address] Calcium 9.4 8.5 - 10.3 mg/dL BRITTAYN Comment:Testing performed by : [address] [address] Bilirubin, total 0.6 0.1 - 1.2 mg/dL BRITTANY Comment:Testing performed by : [address] [address] Protein, pl 7.6 6.5 - 8.5 g/dL BRITTANY Comment:Testing performed by : [address] [address] Albumin 4.4 3.5 - 5.0 g/dL BRITTANY Comment:Testing performed by : [address] [address] Alk phos 50 40 - 130 Units/L BRITTANY Comment:Testing performed by : [address] [address] ALT 51(H) 7 - 45 Units/L BRITTANY Comment:Testing performed by : [address] [address] AST 42 10 - 45 Units/L BRITTANY Comment:Testing performed by : [address] [address] Blood 07/19/2022 1:28 AM BUILDING TRADES TEACHER 07/19/2022 1:39 AM BUILDING TRADES TEACHER Yamila Saunders MD LAB BLOOD ORDERABLES Temi l Result [facility] [address] [facility] Department of Laboratories [place], [place] [id number] * CBC with auto differential (07/19/2022 1:28 AM BUILDING TRADES TEACHER) [facility] Signature WBC 9.9 3.8 - 9.9 K/cumm BRITTANY Comment:Testing performed by : [address] [address] Hgb 14.6 11.9 - 15.5 g/dL BRITTANY Comment:Testing performed by : [address], [address] Hct 43.1 35.6 - 45.5 % BRITTANY Comment:Testing performed by : [address], [address] Plt 233 150 - 400 K/cumm BRITTANY Comment:Testing performed by : [address], [address] MPV 10.0 9.1 - 12.3 fL BRITTANY Comment:Testing performed by : [address], [address] RBC 4.71 3.90 - 5.20 M/cumm BRITTANY Comment:Testing performed by : [address], [address] MCV 91.5 81.3 - 96.4 fL BRITTANY Comment:Testing performed by : [address], [address] MCH 31.0 27.1 - 33.3 pg BRITTANY Comment:Testing performed by : [address], [address] MCHC 33.9 32.3 - 35.7 g/dL BRITTANY Comment:Testing performed by : [address], [address] RDW CV 13.1 11.1 - 14.9 % BRITTANY Comment:Testing performed by : [address], [address] RDW SD 43.8 35.7 - 48.1 fL BRITTANY Comment:Testing performed by : [address], [address] NRBC abs 0.00 0.00 - 0.01 K/cumm BRITTANY Comment:Testing performed by : [address], [address] Blood (Blood, Venous) 07/19/2022 1:28 AM BUILDING TRADES TEACHER 07/19/2022 1:39 AM BUILDING TRADES TEACHER Yamila Saunders MD LAB BLOOD ORDERABLES Temi l Result Performing Organization Address City/State/[facility] de Phone Number BRITTANY [address] [facility] Department [place] [address] * ECG 12 lead (07/19/2022 1:21 AM BUILDING TRADES TEACHER) Ventricular Rate EKG/Min 91 BPM [facility] Atrial Rate 91 BPM [facility] AL-Interval (MSEC) 148 ms [facility] QRS-Interval (MSEC) 88 ms [facility] QT-Interval (MSEC) 362 ms [facility] QTc 445 ms [facility] P O[place] 10 degrees [facility] [facility] R Oley -23 degrees [facility] T Oley 24 degrees [facility] Diagnosis Normal sinus rhythm Nonspecific ST and T wave abnormality Abnormal ECG No previous ECGs available [facility] 07/19/2022 1:21 AM BUILDING TRADES TEACHER 07/19/2022 8:43 PM BUILDING TRADES TEACHER us Yamila Saunders MD ECG ORDERABLES Final Res ult Performing Organization Address [facility] de Phone Number [facility] documented in this encounter Visit Diagnoses Diagnosis Chest wall pain- Primary Painful respiration Flank pain Abdominal pain, unspecified site documented in this encounter Administered Medications Inactive Administered Medications - up to 3 most recent administrations Medication Order MAR Action Action Date Dose Rate Site ondansetron ODT (ZOFRAN-ODT) disintegrating tablet 4 mg 4 mg, oral, Once, On Mon07/19/22 at 0242, For 1 dose Given 07/19/2022 2:56 AM BUILDING TRADES TEACHER 4 mg traMADoL (ULTRAM) tablet 50 mg 50 mg, oral, Once, On Mon07/19/22 at 0242, For 1 dose Given 07/19/2022 2:56 AM BUILDING TRADES TEACHER 50 mg documented in this encounter Active and Recently Administered Medications Times are shown in BUILDING TRADES TEACHER. Scheduled Medication Order 07/17/2022 07/18/2022 07/19/2022 ondansetron ODT (ZOFRAN-ODT) disintegrating tablet 4 mg (COMPLETED) 4 mg, oral, Once, On Mon07/19/22 at 0242, For 1 dose 0256 (Given - Provid er: Devon Hill RN) traMADoL (ULTRAM) tablet 50 mg (COMPLETED) 50 mg, oral, Once, On Mon07/19/22 at 0242, For 1 dose 0256 (Given - Provid er: Devon Hill RN) documented in this encounter Orders IV Count Last Ordered Date First Orde red Date SALINE LOCK IV 1 07/19/2022 documented in this encounter Additional Health Concerns Infection Onset Date Last Indicated Resolved Time COVID: Recovered Comment:Added based on recent COVID infection. 07/02/2022 07/04/2022 09/30/2022 3:05 AM C DT documented as of this encounter Care Teams Animal Doctor Relationship Specialty Start Date End Date Bj Montaño MD PCP - General Family Medicine 04/15/22 02/19/24 Adam English DO Plastics Nurse Gastroenterology 03/26/19 06/05/23 documented as of this encounter
--- OUTSIDE RECORDS SUMMARY | 2024-05-20 13:08 | XMS_ITS | Encounter Summary ---
Author Organization [facility] Healthcare Address [address] [place] [address] Care Team Providers Care Body Artist Name Role Phone Adam English DO Unavailable [phone] Bj Montaño MD Primary Care Provider [phone] Encounter Details Date Type Department Care Team (Late st Contact Info) Description 06/26/2022 Telephone [facility] [address] [place], [place] [id number] (Third Floor) [place] [address] Caitlin Lam RN Social History Tobacco Use Types Packs/Day Years Used Date Smoking Tobacco: Never Smokeless Tobacco: Never Alcohol Use Standard Drinks/Week Comments Not Currently 0 (1 standard drink = 0.6 oz pur e alcohol) Comments No Sex and Gender Information Value Date Recorded Sex Assigned at Not on file Legal Sex Female 2:22 AM SUPERVISOR WOOD ROOM Gender Identity Female 05/18/2019 7:17 PM SUPERVISOR WOOD ROOM Sexual Orientation Straight 05/18/2019 7: 17 PM SUPERVISOR WOOD ROOM documented as of this encounter Miscellaneous Notes * Telephone Encounter - Caitlin Lam RN - 06/26/2022 9:47 AM CST Employee states she is still symptomatic and does not think she can RTW 06/27/22. Referred employee to contact her local [place]. [place] telephone numbers given. EE verbalized understanding. RVISOR WOOD ROOM documented in this encounter Plan of Treatment Not on file documented as of this encounter Visit Diagnoses Not on filedocumented in this encounter Additional Health Concerns Infection Onset Date Last Indicated Resolved Time COVID19 06/22/2022 06/22/2022 07/02/2022 3:05 AM SUPERVISOR WOOD ROOM documented as of this encounter Care Teams Body Artist Relationship Specialty Start Date End Date Bj Montaño MD PCP - General Family Medicine 04/15/22 02/19/24 Adam English DO Health Unit Supervisor Gastroenterology 03/26/19 06/05/23 documented as of this encounter
--- OUTSIDE RECORDS SUMMARY | 2024-05-20 13:09 | XMS_ITS | Encounter Summary ---
Author Organization [facility] Healthcare Address [address] [place] [address] Care Team Providers Care Steward/Stewardess Dining Room Name Role Phone Adam English DO Unavailable [phone] Bj Montaño MD Primary Care Provider [phone] Encounter Details Date Type Department Care Team (Latest Contact Info) Description 06/17/2022 3:53 PM DEICER INSPECTOR PNEUMATIC - 06/17/2022 11:59 PM DEICER INSPECTOR PNEUMATIC [place] [address] Discharge Disposition: Discharge to home or self care Social History Tobacco Use Types Packs/Day Years Used Date Smoking Tobacco: Never Smokeless Tobacco: Never Alcohol Use Standard Drinks/Week Comments Not Currently 0 (1 standard drink = 0.6 oz pur e alcohol) Comments No Sex and Gender Information Value Date Recorded Sex Assigned at Not on file Legal Sex Female 2:22 AM DEICER INSPECTOR PNEUMATIC Gender Identity Female 05/18/2019 7:17 PM DEICER INSPECTOR PNEUMATIC Sexual Orientation Straight 05/18/2019 7: 17 PM DEICER INSPECTOR PNEUMATIC documented as of this encounter Medications at Time of Discharge ALPRAZolam (XANAX) 0.25 mg tablet Take 1 tablet (0.25 mg total) by mouth 3 (three) times a day as needed for anxiety losartan-hydroCHLORO thiazide (HYZAAR) 50-12.5 mg per tablet 1/2 tab am 10/14/2020 SUMAtriptan (IMITREX) 100 mg tablet yszgfym-dkiqufcgs-ed nc tablet Take 1 tablet by mouth [...] on filedocumented in this encounter Care Teams Steward/Stewardess Dining Room Relationship Specialty Start Date End Date Bj Montaño MD PCP - General Family Medicine 04/15/22 02/19/24 Adam English DO Alterations Tailor Gastroenterology 03/26/19 06/05/23 documented as of this encounter
--- OUTSIDE RECORDS SUMMARY | 2024-05-20 13:09 | XMS_ITS | Encounter Summary ---
Author Organization [facility] Address [address] [place] [address] Phone Care Team Providers Care Field Artillery Operations Specialist Name Role Phone Janine Terry MD Primary Care Provider [phone] Adam English DO Unavailable [phone] Reason for Visit * Reason Comments Follow-up Encounter Details Date Type Department Care Team (Late st Contact Info) Description 06/21/2021 2:45 PM LABORATORY MILLER Office Visit [facility] Orthopaedic Surgery [facility] Medical Office Building [address] [place] [address] Miguel Bryson, [place] [address] [place] [id number] Achilles tendinitis of left lower extremity (Primary Dx) Social History Tobacco Use Types Packs/Day Years Used Date Smoking Tobacco: Never Smokeless Tobacco: Never Alcohol Use Standard Drinks/Week Comments Not Currently 0 (1 standard drink = 0.6 oz pur e alcohol) Comments No Sex and Gender Information Value Date Recorded Sex Assigned at Not on file Legal Sex Female 2:22 AM LABORATORY MILLER Gender Identity Female 05/18/2019 7:17 PM LABORATORY MILLER Sexual Orientation Straight 05/18/2019 7: 17 PM LABORATORY MILLER documented as of this encounter Progress Notes * Miguel Bryson NP - 06/21/2021 2:45 PM CST RETURN PATIENT VISIT INTERIM HISTORY The patient is here for follow-up of her left ankle. She has Achilles tendinopathy and bursitis. She also has an osteochondral lesion. She was in a cast for 2 weeks and then transition to a boot. Gonzálezs found the boot helpful. She really does not have much pain to touch any more but does note somestinging and burning. PHYSICAL EXAMINATION On physical exam she is alert oriented x3. Skin exam reveals no rashes, lesions or ulcers. Sensation is intact to light touch. She still has some tenderness at the insertion of the Achilles tendon more towards the lateral aspect of the insertion. Much improved from previous exam. No pain with a calcaneal squeeze. Swelling is resolving. No redness or bruising. She can get to neutral. No calf pain. REVIEW OF X-RAYS/STUDIES MRI of the left ankle hindfoot dated May 19, 2021 was reviewed and shows mild insertional posterior tib tendinopathy without tear. ??There is a chronic sprain of the deltoid with heterotopic ossification. ??There is mild tendinopathy of the peroneus brevis and longus without tear. ??Syndesmosis and syndesmotic ligaments are intact. ??Anterior talofibular, calcaneofibular and posterior talofibular ligaments are intact. ??There is severe distal Achilles tendinopathy involving the distal 5 cm of the tendon with enthesitis??and heterotopic ossification at the insertion. ??There is retro Achilles bursitis. ??There is mucoid degeneration versus small partial thickness tear at the Achilles tendon insertion measuring 3 x 4 mm. ??There is severe retrocalcaneal bursitis. ??There is an osteochondral lesion of the posterior medial talar dome measuring 11 x 7 mm without unstable in situ??fragment. ??There is likely intraosseous ganglion in the fourth metatarsal base. ??There is soft tissue swelling about the ankle most pronounced laterally.? IMPRESSION/DIAGNOSIS Left Achilles tendinopathy with enthesitis, heterotopic ossification, mucoid degeneration or small intrasubstance tear and severe retrocalcaneal bursitis Left osteochondral lesion medial talar dome without unstable inside to fragment Left hindfoot chondrosis Left peroneus longus and brevis tendinopathy Left posterior tib tendinopathy TREATMENT/PLAN We discussed treatment options in the office today. She is doing much better. She will continue theboot. I wrote her a prescription for orthotics. She can be weight-bearing as tolerated. She can continue with vqldd-tb-fknvst exercises. She has meloxicam. I will check her back in 2 weeks and likelystart boot weaning at that time. We will also have her do physical therapy. She is agreeable to plan. All her questions were answered today. FOLLOW UP Two weeks I was in collaboration with Dr. Subramanian today. Miguel Bryson, RN,BSN, MSN, MICROSOFT INFRASTRUCTURE CONSULTANT, COURT CLERK-C, in collaborative practice with Dr. Nader Diaz and Dr. Jordon Subraamnian Nurse Practitioner, Foot and Ankle Service [facility] Orthopedics. This is ANNA Dickey dictating using [employer] Software Program. Consulting Analyst variances may occur. RATORY MILLER documented in this encounter Plan of Treatment Not on file documented as of this encounter Visit Diagnoses Diagnosis Achilles tendinitis of left lower extremity- Primary documented in this encounter Care Teams Field Artillery Operations Specialist Relationship Specialty Start Date End Date Janine Terry MD [address] [place] [address] PCP - General Family Medicine 03/06/19 01/19/22 Adam English DO [address] [place] [address] Dump Attendant Gastroenterology 03/26/19 06/05/23 documented as of this encounter
--- OUTSIDE RECORDS SUMMARY | 2024-05-20 13:09 | XMS_ITS | Encounter Summary ---
Author Organization [facility] Address [address] [place] [address] Phone Care Team Providers Care Helicopter Technician Name Role Phone Janine Terry MD Primary Care Provider [phone] Adam English DO Unavailable [phone] Reason for Visit * Reason Comments Follow-up Encounter Details Date Type Department Care Team (Late st Contact Info) Description 08/06/2021 9:15 AM CDT Office Visit [facility] Orthopaedic Surgery [address] [place] [address] Miguel Bryson, [place] [address] [facility] [address] [place], [place] [id number] Achilles tendinitis of left lower extremity (Primary Dx) Social History Tobacco Use Types Packs/Day Years Used Date Smoking Tobacco: Never Smokeless Tobacco: Never Alcohol Use Standard Drinks/Week Comments Not Currently 0 (1 standard drink = 0.6 oz pur e alcohol) Comments No Sex and Gender Information Value Date Recorded Sex Assigned at Not on file Legal Sex Female 2:22 AM SALES PROMOTER Gender Identity Female 05/18/2019 7:17 PM SALES PROMOTER Sexual Orientation Straight 05/18/2019 7: 17 PM SALES PROMOTER documented as of this encounter Progress Notes * Miguel Bryson NP - 08/06/2021 9:15 AM CDT RETURN PATIENT VISIT INTERIM HISTORY The patient is here for follow-up of her left ankle. She has Achilles tendinopathy and bursitis. She is overall doing very well. She has 3 visits of formal physical therapy left. She did get her orthotics last week but feels she does need to get an adjustment made in the heel. She was originally treated in a cast for 2 weeks and then boot for 4 weeks. She does occasionally note some stinging at the back of the heel. PHYSICAL EXAMINATION On physical exam she is alert oriented x3. Skin exam reveals no rashes, lesions or ulcers. Sensation is intact to light touch. She still has some tenderness at the insertion of the Achilles tendon. Minimal swelling. No redness or bruising. She has intact dorsiflexion, plantar flexion, inversion andeversion. Ankle strength is 5/5. REVIEW OF X-RAYS/STUDIES MRI of the left [...] about the ankle most pronounced laterally.? IMPRESSION/DIAGNOSIS Improving left Achilles tendinopathy with enthesitis, heterotopic ossification, mucoid degenerationor small intrasubstance tear and severe retrocalcaneal bursitis Left osteochondral lesion medial talar dome without unstable in-situ fragment Left hindfoot chondrosis Left peroneus longus and brevis tendinopathy Left posterior tib tendinopathy TREATMENT/PLAN We discussed treatment options in the office today. She is doing well. She will finish out physicaltherapy. She will get modifications done to her orthotics. She will continue to use ice and then home exercises after formal therapy. She works from home and can continue to do that. I will check miguel in 4-6 weeks. She is agreeable with the plan. All of her questions were answered today. FOLLOW UP 4-6 weeks I was in collaboration with Dr. Subramanian today. Miguel Bryson, RN,BSN, MSN, INSURANCE UNDERWRITING ASSISTANT, BIOMETRY TEACHER-C, in collaborative practice with Dr. Nader Diaz and Dr. Jordon Subramanian Nurse Practitioner, Foot and Ankle Service [facility] Orthopedics. This is ANNA Dickey dictating using [employer] Software Program. Integrity Manager variances may occur. documented in this encounter Plan of Treatment Not on file documented as of this encounter Visit Diagnoses Diagnosis Achilles tendinitis of left lower extremity- Primary documented in this encounter Care Teams Helicopter Technician Relationship Specialty Start Date End Date Janine Terry MD [address] [place] [address] PCP - General Family Medicine 03/06/19 01/19/22 Adam English DO [address] [address] Abrasive Worker Gastroenterology 03/26/19 06/05/23 documented as of this encounter
--- OUTSIDE RECORDS SUMMARY | 2024-05-20 13:09 | XMS_ITS | Encounter Summary ---
Author Organization [facility] Healthcare Address [address] [place] [address] Care Team Providers Care Aircraft Log Clerk Name Role Phone Adam English DO Unavailable [phone] Bj Montaño MD Primary Care Provider [phone] Encounter Details Date Type Department Care Team (Latest Contact Info) Description 05/12/2022 9:20 AM ORACLE DATABASE ANALYST - 05/12/2022 11:59 PM ORACLE DATABASE ANALYST Hospital Encounter [address] [address] Acute gastroenteritis Discharge Disposition: Discharge to home or self care Social History Tobacco Use Types Packs/Day Years Used Date Smoking Tobacco: Never Smokeless Tobacco: Never Alcohol Use Standard Drinks/Week Comments Not Currently 0 (1 standard drink = 0.6 oz pur e alcohol) Comments No Sex and Gender Information Value Date Recorded Sex Assigned at Not on file Legal Sex Female 2:22 AM ORACLE DATABASE ANALYST Gender Identity Female 05/18/2019 7:17 PM ORACLE DATABASE ANALYST Sexual Orientation Straight 05/18/2019 7: 17 PM ORACLE DATABASE ANALYST documented as of this encounter Medications at Time of Discharge ALPRAZolam (XANAX) 0.25 mg tablet Take 1 tablet (0.25 mg total) by mouth 3 (three) times a day as needed for anxiety losartan-hydroCHLORO thiazide (HYZAAR) 50-12.5 mg per tablet 1/2 tab am 10/14/2020 SUMAtriptan (IMITREX) 100 mg tablet zajwokj-kpgvykebp-gc nc tablet Take 1 tablet by mouth [...] hs 3 ondansetron (ZOFRAN) 4 mg tabletIndications:Ac elem gastroenteritis Take 1 tablet (4 mg total) [...] Miscellaneous Notes * Result Encounter Note - Ad Ryder MA - 05/12/2022 7:17 PM CST Viewed on [employer] LE DATABASE ANALYST * Result Encounter Note - Ad Ryder MA - 05/12/2022 5:41 PM CST LMTRC LE DATABASE ANALYST * Result Encounter Note - Jacqueline Clark NP - 05/12/2022 4:50 PM CST Please notify patient of negative COVID-19 test. Patient should rest, stay hydrated, and take OTC medications as needed. Monitor symptoms and if they worsen follow up with primary care doctor or ER if needed. LE DATABASE ANALYST * Result Encounter Note - Jacqueline Clark NP - 05/12/2022 4:50 PM CST Please notify patient of negative COVID-19/RSV/FLU test. Patient should rest, stay hydrated, and take OTC medications as needed. Monitor symptoms and if they worsen follow up with primary care doctoror ER if needed. LE DATABASE ANALYST documented in this encounter Plan of Treatment Not on file documented as of this encounter Procedures Procedure Name Priority Date/Time Associated Diagnosis Comments INFLUENZA A/B, RSV, AND COVID-19 PCR Routine 05/12/2022 9:20 AM ORACLE DATABASE ANALYST Acute gastroenteritis documented in this encounter Results * Influenza A/B, RSV, and COVID-19 PCR Nasopharyngeal (05/12/2022 9:20 AM ORACLE DATABASE ANALYST) COVID-19 RNA Negative Negative [facility] Influenza A RNA Negative Negative [facility] Influenza B RNA Negative Negative [facility] RSV RNA Negative Negative [facility] Comment: Interpretive data: This test is performed using the [employer] Xpert Xpress CoV-2/Flu/RSV plus assay. This is a multiplex, real-time reverse transcriptase PCR assay intended for the qualitative detection of nucleic acid from SARS-CoV-2, influenza A, influenza B, and respiratory syncytial virus. This assay has been reviewed by the FDA for Emergency Use Authorization (EUA). The performance characteristics have been verified by the performing laboratory. Results must be considered in the clinical context, and a negative result does not rule out infection. Interpretive Data last revised 2021. Nasopharyngeal 05/12/2022 9: 20 AM ORACLE DATABASE ANALYST 05/12/2022 2:04 PM ORACLE DATABASE ANALYST Narrative [facility] - 05/12/2022 2:52 PM ORACLE DATABASE ANALYST Is the Patient experiencing symptoms consistent with COVID?->Yes Date of Symptom Onset->05/09/22 Reason for testing?->Symptomatic Raina Darby NP LAB MICROBIOLOGY - GENERAL ORDCelina VALADEZ Final Result [facility] [address] Department [place] [address] documented in this encounter Visit Diagnoses Diagnosis Acute gastroenteritis Other and unspecified noninfectious gastroenteritis and colitis documented in this encounter Additional Health Concerns Infection Onset Date Last Indicated Resolved Time COVID: Suspected 05/12/2022 05/12/2022 05/12/2022 2:53 PM ORACLE DATABASE ANALYST documented as of this encounter Care Teams Aircraft Log Clerk Relationship Specialty Start Date End Date Bj Montaño MD PCP - General Family Medicine 04/15/22 02/19/24 Adam English DO Information Technology Professor Gastroenterology 03/26/19 06/05/23 documented as of this encounter
--- OUTSIDE RECORDS SUMMARY | 2024-05-20 13:09 | XMS_ITS | Encounter Summary ---
Author Organization [facility] Address [address] [place] [address] Care Team Providers Care Compressor Station Engineer Name Role Phone Janine Terry MD Primary Care Provider [phone] Adam English DO Unavailable [phone] Reason for Referral * Consultation (Routine) - Closed Specialty Diagnoses / Procedures Referred By Sisi de león Referred To Contact Orthopedic Surgery Diagnoses Acute left ankle pain Yanelis Mccauley NP Phone: tel: fax: Alfonzo Diaz MD [address] [address] Phone: tel: fax: Referral ID Status Reason Start Date Expiration Date V isits Requested Visits Authorized [id number] Closed Specialty Services Required 05/05/2021 06/04/2022 1 1 Question Answer Please select the performing region: [facility] (All Locations) [[id number]] To provider: ALFONZO DIAZ [[id number]] # of visits: 1 BALL MACHINE MECHANIC * Diagnostic Imaging (Routine) - Closed Specialty Diagnoses / Procedures Referred By Sisi t Referred To Contact Diagnoses Acute left ankle pain Procedures XR Ankle Left 3+ Vw Yanelis Mccauley NP Phone: tel: fax: [facility] Referral ID Status Reason Start Date Expiration Date Visits Re quested Visits Authorized [id number] Closed 05/05/2021 06/04/2022 1 1 BALL MACHINE MECHANIC Reason for Visit * Reason Comments Ankle Pain left ankle pain and swelling several weeks has been taking solan pas patch and anti inflamatory with no relief swelling is worse /no known injury Encounter Details Date Type Department Care Team (Late st Contact Info) Description 05/05/2021 10:00 AM PIN BALL MACHINE MECHANIC Office Visit [facility] Out[facility] [address] [address] Yanelis Mccauley NP [address] [place] [address] Acute left ankle pain (Primary Dx) Social History Tobacco Use Types Packs/Day Years Used Date Smoking Tobacco: Never Smokeless Tobacco: Never Alcohol Use Standard Drinks/Week Comments Not Currently 0 (1 standard drink = 0.6 oz pur e alcohol) Comments No Sex and Gender Information Value Date Recorded Sex Assigned at Not on file Legal Sex Female 2:22 AM PIN BALL MACHINE MECHANIC Gender Identity Female 05/18/2019 7:17 PM PIN BALL MACHINE MECHANIC Sexual Orientation Straight 05/18/2019 7: 17 PM PIN BALL MACHINE MECHANIC documented as of this encounter Last Filed Vital Signs Vital Sign Reading Time Taken Comments Blood Pressure 129/81 05/05/2021 9:47 AM PIN BALL MACHINE MECHANIC Pulse 86 05/05/2021 9:47 AM PIN BALL MACHINE MECHANIC Temperature 36.9 ??C (98.5 ??F) 05/05/2021 9:47 AM CS T Respiratory Rate 14 05/05/2021 9:47 AM PIN BALL MACHINE MECHANIC Oxygen Saturation 97% 05/05/2021 9:47 AM PIN BALL MACHINE MECHANIC Inhaled Oxygen Concentration - - Weight 133.8 kg (295 lb) 05/05/2021 9:47 AM PIN BALL MACHINE MECHANIC Height 180.3 cm (5' 11 ) 05/05/2021 9:47 AM PIN BALL MACHINE MECHANIC Body Mass Index 41.14 05/05/2021 9:47 AM PIN BALL MACHINE MECHANIC documented in this encounter Patient Instructions * Patient Instructions* Yanelis Mccauley NP - 05/05/2021 10:00 AM PIN BALL MACHINE MECHANIC Images from the original note were not included. Will get x-ray and refer to ortho if needed RICE therapy Wear supportive shoes Follow up with PCP if symptoms persist/worsenPatient Education R.I.C.E. Treatment TELEVISION ANCHOR: R.I.C.E. treatment is a 4-step process used to decrease swelling and pain caused by an injury. R.I.C.E. stands for rest, ice, compression, and elevation. R.I.C.E. should be done within 24 to 48 hoursafter an injury. Seek care immediately if: ?? Your pain is severe. ?? You have severe swelling or deformity. ?? You have numbness in the injured area. Contact your healthcare provider if: ?? Your pain and swelling does not go away after a few days. ?? You have questions or concerns about your condition or care. How to use R.I.C.E. treatment: ?? Rest your injured area as directed. You may need to stop using, or keep weight off, the injury for 48 hours or longer. Your healthcare provider may recommend crutches or another device. Return to your usual activities as directed. ?? Apply ice on your injured area for 15 to 20 minutes every 4 hours or as directed. Use an ice pack, or put crushed ice in a plastic bag. Cover it with a towel. Ice helps prevent tissue damage and decreases swelling and pain. ?? Compress , or keep pressure on, the injured area. Compression will help decrease swelling and support the injured area. Use an elastic bandage, air stirrup, splint, or sling as directed. If you use an elastic bandage to wrap your injured area, make sure the bandage is not too tight. ?? Elevate the injured area above the level of your heart as often as you can. This will help decrease swelling and pain. Prop the injured area on pillows or blankets to keep it elevated comfortably. Follow up with your healthcare provider as directed: Write down your questions so you remember to ask them during your visits. ?? 2017 [employer] Information is for End User's use only and may not be sold, redistributed or otherwise used for commercial purposes. All illustrations and images included in CareNotes?? are the copyrighted property of [employer] or [employer]. The above information is an home aide only. It is not intended as medical advice for individual conditions or treatments. Talk to your doctor, nurse or pharmacist before following any medical regimen to see if it is safe and effective for you. BALL MACHINE MECHANIC documented in this encounter Progress Notes * Yanelis Mccauley NP - 05/05/2021 10:00 AM CST Images from the original note were not included. Subjective/Objective Patient ID: Josy Fiore is a 61 y.o. female. Chief Complaint Ankle Pain (left ankle pain and swelling several weeks has been taking solan pas patch and anti inflamatory with no relief swelling is worse /no known injury ) Patient presents with left ankle pain and swelling that started a few weeks ago. She has been taking only tylenol because she wants to be able to donate blood so she cannot take NSAIDs. It is painfulwhen she is up and around and then once it gets irritated it is painful even when she is sitting. Review of Systems Musculoskeletal: Positive for joint swelling. L ankle pain/swelling Physical Exam Constitutional: Appearance: Normal appearance. She is obese. Cardiovascular: Rate and Rhythm: Normal rate and regular rhythm. Heart sounds: Normal heart sounds. Pulmonary: Effort: Pulmonary effort is normal. Breath sounds: Normal breath sounds. Musculoskeletal: Left ankle: Swelling present. Tenderness present. Legs: Neurological: Mental Status: She is alert. Vitals: 05/05/21 0947 BP: 129/81 BP Location: Right arm Patient Position: Sitting Pulse: 86 Resp: 14 Temp: 36.9 ??C (98.5 ??F) TempSrc: Oral SpO2: 97% Weight: 133.8 kg (295 lb) Height: 180.3 cm (5' 11 ) No results found for this or any previous visit (from the past 24 hour(s)). Assessment/Plan Will get x-ray and refer to ortho if needed RICE therapy Wear supportive shoes Follow up with PCP if symptoms persist/worsen Diagnoses and all orders for this visit: Acute left ankle pain (Primary) - XR Ankle Left 3+ Vw IMPRESSION: No definite acute osseous abnormality. ?? 1.5 cm enthesophyte at the Achilles tendon insertion, from the posterior calcaneal spur. This could be chronic or could be due to a subacute fracture of the posterior calcaneal spur. This could be further evaluated ?? with MRI of the ankle, as clinically warranted. ?? Soft tissue swelling about the ankle. Patient will call clinic tomorrow to let us know where she would like referral to. Disposition- Discussed medications dosages, usage & potential side effects. Risks and interactions reviewed with patient. Indications for testing reviewed. Patient has been instructed to follow up w PCP or go to ER for any signs or symptoms that are of concern or worsening. Patient verbalizes understanding. The patient was given the opportunity to ask all questions and to have all questions answered. Patient is in agreement with the plan of care Yanelis Mccauley NP BALL MACHINE MECHANIC documented in this encounter Miscellaneous Notes * Addendum Note - Yanelis Mccauley NP - 05/05/2021 10:00 AM CSTAddended by: YANELIS MCCAULEY on: 05/05/2021 07:59 PM Modules accepted: Orders BALL MACHINE MECHANIC documented in this encounter Plan of Treatment Scheduled Referrals Name Type Priority Associated Diagnoses Order Schedule Ambulatory referral to Orthopedic Surgery Outpatient Referral Routine Acute left ankle pain Ordered: 05/05/2021 documented as of this encounter Procedures Procedure Name Priority Date/Time Associated Diagnosis Comments XR ANKLE LEFT 3 OR MORE VIEWS Schedule CHUCKIE, Read CHUCKIE (Appt Today, Awaiting Results) 05/05/2021 10:43 AM PIN BALL MACHINE MECHANIC Acute left ankle pain documented in this encounter Results * XR Ankle Left 3+ Vw (05/05/2021 10:43 AM PIN BALL MACHINE MECHANIC) Anatomical Region Laterality Modality Lower Extremities, Ankle Left Digital Radiography 05/05/2021 6:21 PM PIN BALL MACHINE MECHANIC Narrative 05/05/2021 6:25 PM PIN BALL MACHINE MECHANIC EXAM DESCRIPTION: ?XR ANKLE LEFT 3 OR MORE VIEWS REASON FOR STUDY: Posterior ankle pain into heel, and extending up to calf for 3 weeks. ??Worsening pain for past 2 days. TECHNIQUE: ?? AP, lateral, and oblique ??radiographic views acquired of the left ankle. COMPARISON: ?? None FINDINGS: BONES/JOINTS: ?? Satisfactory bone alignment. ??Mild degenerative changes in the ankle. ??1.5 enthesophyte at the Achilles tendon insertion, by 2 mm from the posterior calcaneal spur. ??This appears well-marginated, but a subacute fracture of the enthesophyte is not excluded. ??Suggest correlation to physical exam findings and patient's symptoms. ??This could be further evaluated with MRI as clinically warranted. ??Small plantar calcaneal spur. ??6 mm well-marginated ossification at the tip of the medial malleolus, compatible with old avulsion fracture, versus ununited accessory ossicle. ?? SOFT TISSUES: ?? Moderate soft tissue swelling about the ankle. ?? Mild soft tissue swelling over the posterior margin of the calcaneus at the level of the Achilles tendon insertion. OTHER: ?? No other significant finding. IMPRESSION: ??No definite acute osseous abnormality. 1.5 cm ??enthesophyte at the Achilles tendon insertion, from the posterior calcaneal spur. ??This could be chronic or could be due to a subacute fracture of the posterior calcaneal spur. ??This could be further evaluated with MRI of the ankle, as clinically warranted. Soft tissue swelling about the ankle. THIS IS AN ELECTRONICALLY VERIFIED FINAL REPORT 05/05/2021 6:25 PM - Electronically signed by ??Javier RIVERO D: ??05/05/2021 6:25 PM T: Report ID: [id number] Reading Location: ??[id number] Procedure Note Javier Cedillo MD - 05/05/2021 EXAM DESCRIPTION: XR ANKLE LEFT 3 OR MORE VIEWS REASON FOR STUDY: Posterior ankle pain into heel, and extending up to calffor 3 weeks. Worsening pain for past 2 days. TECHNIQUE: AP, lateral, and oblique radiographic views acquired of theleft ankle. COMPARISON: None FINDINGS: BONES/JOINTS: Satisfactory bone alignment. Mild degenerative changes inthe ankle. 1.5 enthesophyte at the Achilles tendon insertion, by 2mm from the posterior calcaneal spur. This appears well-marginated, but a subacute fracture of the enthesophyte is not excluded. Suggestcorrelation to physical exam findings and patient's symptoms. This could be further evaluated with MRI as clinically warranted. Small plantar calcaneal spur.6 mm well-marginated ossification at the tip of the medial malleolus,compatible with old avulsion fracture, versus ununited accessory ossicle. SOFT TISSUES: Moderate soft tissue swelling about the ankle. Mild soft tissue swelling over the posterior margin of the calcaneus at the level ofthe Achilles tendon insertion. OTHER: No other significant finding. IMPRESSION: No definite acute osseous abnormality. 1.5 cm enthesophyte at the Achilles tendon insertion, from the posterior calcaneal spur. This could be chronic or could be due to asubacute fracture of the posterior calcaneal spur. This could be further evaluated with MRI of the ankle, as clinically warranted. Soft tissue swelling about the ankle. THIS IS AN ELECTRONICALLY VERIFIED FINAL REPORT 05/05/2021 6:25 PM - Electronically signed by Javier RIVERO T: Report ID: [id number] Reading Location: [place] [address] Yanelis Mccauley REIMBURSEMENT SPEC IMG XR PROCEDURES Final Result documented in this encounter Visit Diagnoses Diagnosis Acute left ankle pain- Primary documented in this encounter Historical Medications * This list may reflect changes made after this encounter. Medication Sig Dispense Quantity Refills Last Filled Start D ate End Date SUMAtriptan (IMITREX) 100 mg tablet added in this encounter Care Teams Compressor Station Engineer Relationship Specialty Start Date End Date Janine Terry MD [address] [place] [address] PCP - General Family Medicine 03/06/19 01/19/22 Adam English DO [address] [place] [address] Skip Load Driver Gastroenterology 03/26/19 06/05/23 documented as of this encounter
--- OUTSIDE RECORDS SUMMARY | 2024-05-20 13:09 | XMS_ITS | Encounter Summary ---
Author Organization [facility] Healthcare Address [address] [place] [address] Care Team Providers Care Potato Chip Sacking Machine Operator Name Role Phone Janine Terry MD Primary Care Provider [phone] Adam English DO Unavailable [phone] Janine Terry MD Primary Care Provider [phone] Mellissa Rodríguez Primary Care Provider Encounter Details Date Type Department Care Team (Late st Contact Info) Description 01/18/2022 Orders Only [facility] Health Information Management [address] [place] [address] Scanning, Provider Social History Tobacco Use Types Packs/Day Years Used Date Smoking Tobacco: Never Smokeless Tobacco: Never Alcohol Use Standard Drinks/Week Comments Not Currently 0 (1 standard drink = 0.6 oz pur e alcohol) Comments No Sex and Gender Information Value Date Recorded Sex Assigned at Not on file Legal Sex Female 2:22 AM MEMBERSHIP DIRECTOR Gender Identity Female 05/18/2019 7:17 PM MEMBERSHIP DIRECTOR Sexual Orientation Straight 05/18/2019 7: 17 PM MEMBERSHIP DIRECTOR documented as of this encounter Plan of Treatment Not on file documented as of this encounter Procedures Procedure Name Priority Date/Time Associated Diagnosis Comments SCAN - OTHER ORDERS 01/18/2022 documented in this encounter Results * SCAN - OTHER ORDERS (01/18/2022) us Provider Scanning Final Result documented in this encounter Visit Diagnoses Not on filedocumented in this encounter Care Teams Potato Chip Sacking Machine Operator Relationship Specialty Start Date End Date Janine Terry MD [address] [place] [address] PCP - General Family Medicine 03/06/19 01/19/22 Janine Terry MD [address] [place] [address] PCP - General 01/20/22 01/20/22 Mellissa Rodríguez PA [address] [place] [address] PCP - General Physician House Nurse 01/21/22 04/14/22 Adam English DO [address] [place] [address] Blow Up Operator Gastroenterology 03/26/19 06/05/23 documented as of this encounter
--- OUTSIDE RECORDS SUMMARY | 2024-05-20 13:09 | XMS_ITS | Encounter Summary ---
Author Organization [facility] Address [address] [place] [address] Phone Care Team Providers Care Gas Dispatcher Name Role Phone Janine Terry MD Primary Care Provider Adam English DO Unavailable [phone] Reason for Referral * Diagnostic Imaging (Routine) - Closed Specialty Diagnoses / Procedures Referred By Sisi de león Referred To Contact Diagnoses Pain and swelling of left lower extremity Procedures US VEIN DUPLEX LOWER EXTREMITY LEFT LIMITED, [place] [address] [place] [address] Phone: tel: fax: [facility] (All Locations) Referral ID Status Reason Start Date Expiration Date Visits Re quested Visits Authorized [id number] Closed 06/24/2021 07/24/2022 1 1 LITY MECHANIC Encounter Details Date Type Department Care Team (Late st Contact Info) Description 06/24/2021 Orders Only [facility] Orthopaedic Surgery [facility] Medical Office Building [address] [place] [address] Keo Bryson, GEORGETTE [address] [place] [address] Pain and swelling of left lower extremity (Primary Dx) Social History Tobacco Use Types Packs/Day Years Used Date Smoking Tobacco: Never Smokeless Tobacco: Never Alcohol Use Standard Drinks/Week Comments Not Currently 0 (1 standard drink = 0.6 oz pur e alcohol) Comments No Sex and Gender Information Value Date Recorded Sex Assigned at Not on file Legal Sex Female 2:22 AM FACILITY MECHANIC Gender Identity Female 05/18/2019 7:17 PM FACILITY MECHANIC Sexual Orientation Straight 05/18/2019 7: 17 PM FACILITY MECHANIC documented as of this encounter Plan of Treatment Not on file documented as of this encounter Results * US VEIN DUPLEX LOWER EXTREMITY LEFT LIMITED, UNILATERAL (06/24/2021 4:14 PM FACILITY MECHANIC) Anatomical Region Laterality Modality Vascular Left Ultrasound 06/24/2021 4:18 PM FACILITY MECHANIC Narrative 06/25/2021 11:42 AM FACILITY MECHANIC [facility] - Department of Vascular Surgery, Vascular Laboratory [address] [place] [address] Lower Extremity Venous Ultrasound Report Patient Name: JOSY POOLE : 1960 (61y 5m) Study Date: 06/24/2021 4:18:55 PM Gender: F Tech: BAD Location: [facility] Ref.Provider: KEO BRYSON Quality: Adequate Order Provider: KEO BRYSON Procedures: Vascular Report: Venous Duplex imaging was performed in the left lower extremity. The common femoral, femoral, popliteal, posterior tibial, peroneal veins were evaluated for patency, spontaneity and phasicity with Doppler, compression and augmentation maneuvers. Great saphenous vein proximal at the junction was evaluated with compression maneuvers. Indications: left lower extremity pain and swelling. Findings: Performing Group Exercise Class Instructor: Carolyn Gilbert RVT. Left: Venous Doppler signals in the left lower extremity are within normal limits for spontaneity and phasicity and respond normally to augmentation maneuvers. No evidence of deep vein thrombus by duplex, proximal to the calf. Comments: Contralateral common femoral vein is imaged for comparison and is patent. Unilateral (limited study) performed per M.D. order. Conclusions: 1. There is no evidence of acute deep vein thrombosis on the left. Noninvasive venous studies cannot rule out isolated calf vein obstruction. 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 Previous Studies: No previous studies for comparison. Disclaimer: The signing physician has reviewed all images pertaining to this test. These images and this report will be retained in the patient chart by the Vascular Laboratory for the legally required time period. This chart constitutes the legal record of any testing performed. Electronically Signed By: Sukhwinder Stubbs MD [facility] [phone] 2021-06-25 11:42:55 FACILITY MECHANIC CC: CC: Procedure Note Sukhwinder Stubbs MD - 06/25/2021 [facility] - Department of Vascular Surgery,Vascular Laboratory [address] [place] [address] Lower Extremity Venous Ultrasound Report Patient Name: JOSY POOLEPatient ID: [id number] : 1960 (61y 5m)Study Date: 06/24/2021 4:18:55 PM Gender: FAccession #: [id number] Tech: BADLocation: [facility] Ref.Provider: Ramy BRYSONality: Adequate Order Provider: Meli BRYSON #: [id number] Procedures: Vascular Report: Venous Duplex imaging was performed in the left lower extremity. Thecommon femoral, femoral, popliteal, posterior tibial, peroneal veins were evaluated forpatency, spontaneity and phasicity with Doppler, compression and augmentationmaneuvers. Great saphenous vein proximal at the junction was evaluated with compressionmaneuvers. Indications: left lower extremity pain and swelling. Findings: Performing Group Exercise Class Instructor: Carolyn Gilbert RVT. Left: Venous Doppler signals in the left lower extremity are within normallimits for spontaneity and phasicity and respond normally to augmentation maneuvers.No evidence of deep vein thrombus by duplex, proximal to the calf. Comments: Contralateral common femoral vein is imaged for comparison and is patent.Unilateral (limited study) performed per M.D. order. Conclusions: 1. There is no evidence of acute deep vein thrombosis on the left.Noninvasive venous studies cannot rule out isolated calf vein obstruction. 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 Previous Studies: No previous studies for comparison. Disclaimer: The signing physician has reviewed all images pertaining to this test.These images and this report will be retained in the patient chart by the VascularLaboratory for the legally required time period. This chart constitutes the legal record ofany testing performed. Electronically Signed By: Sukhwinder Stubbs MD [facility] [phone] 2021-06-25 11:42:55 FACILITY MECHANIC CC: CC: us Keo Bryson VB NET PROGRAMMER IMG US PROCEDURES Final Re sult documented in this encounter Visit Diagnoses Diagnosis Pain and swelling of left lower extremity- Primary Pain and swelling of left lower extremity documented in this encounter Care Teams Gas Dispatcher Relationship Specialty Start Date End Date Janine Terry MD [address] [place] [address] PCP - General Family Medicine 03/06/19 01/19/22 Adam English DO [address] [place] [address] Van Driver Helper Gastroenterology 03/26/19 06/05/23 documented as of this encounter
--- OUTSIDE RECORDS SUMMARY | 2024-05-20 13:09 | XMS_ITS | Encounter Summary ---
Author Organization [facility] Address [address] [place] [address] Phone Care Team Providers Care Business Asst Name Role Phone Janine Terry MD Primary Care Provider [phone] Adam English DO Unavailable [phone] Reason for Visit * Reason Comments Pain Pain * Consultation (Routine) - Closed Specialty Diagnoses / Procedures Referred By Sisi de león Referred To Contact Orthopedic Surgery Diagnoses Acute left ankle pain Yaenlis Mccauley NP Phone: tel: fax: Alfonzo Diaz MD [address] [facility] [address] [place] [address] Phone: tel: fax: Referral ID Status Reason Start Date Expiration Date V isits Requested Visits Authorized [id number] Closed Specialty Services Required 05/05/2021 06/04/2022 1 1 Encounter Details Date Type Department Care Team (Late st Contact Info) Description 05/24/2021 2:00 PM LENS CLEANER Office Visit [facility] Orthopaedic Surgery [address] [facility] Medical Office Building [address] [place] [address] [place] [address] [place] [address] Acute left ankle pain (Primary Dx) Social History Tobacco Use Types Packs/Day Years Used Date Smoking Tobacco: Never Smokeless Tobacco: Never Alcohol Use Standard Drinks/Week Comments Not Currently 0 (1 standard drink = 0.6 oz pur e alcohol) Comments No Sex and Gender Information Value Date Recorded Sex Assigned at Not on file Legal Sex Female 2:22 AM LENS CLEANER Gender Identity Female 05/18/2019 7:17 PM LENS CLEANER Sexual Orientation Straight 05/18/2019 7: 17 PM LENS CLEANER documented as of this encounter Last Filed Vital Signs Vital Sign Reading Time Taken Comments Blood Pressure - - Pulse - - Temperature - - Respiratory Rate - - Oxygen Saturation - - Inhaled Oxygen Concentration - - Weight 132.5 kg (292 lb) 05/25/2021 9:14 AM LENS CLEANER Height 177.8 cm (5' 10 ) 05/25/2021 9:14 AM LENS CLEANER Body Mass Index 41.9 05/25/2021 9:14 AM LENS CLEANER documented in this encounter Ordered Prescriptions Prescription Sig Dispense Quantity Refills Last Filled Start Date End Date meloxicam (MOBIC) 7.5 mg tablet Take 1 tablet (7.5 mg total) by mouth daily 30 tablet 05/24/2021 06/23/2021 documented in this encounter Progress Notes * Miguel Bryson, WIG MAKER - 05/24/2021 2:00 PM CST NEW PATIENT VISIT CHIEF COMPLAINT Pain of the Left Foot and Pain of the Left Ankle HISTORY OF PRESENT ILLNESS The patient is a 61-year-old female who presents today with chief complaint of left heel pain. She began having pain on approximately May 01, 2021. She does not recall an injury. She was seen atan outside urgent care and had x-rays. She also had an MRI. She has been using a wrap, ibuprofen and Tylenol. She was currently doing 800 mg of ibuprofen along with Prilosec as she does have some stomach issues. She describes the pain as sharp, burning, aching and mild to moderate. Weightbearing makes it worse. PAST MEDICAL HISTORY She Past Medical History: Diagnosis Date ??? Anxiety ??? Arthritis Right ankle and knee ??? Cholecystitis ??? Colorectal polyps ??? Depression ??? Diverticulitis ??? NAFLD (nonalcoholic fatty liver disease) ??? Ovarian cyst ??? Rosacea PAST SURGICAL HISTORY She Past Surgical History: Procedure Laterality Date ??? COLECTOMY 04/18/2019 Laparoscopic sigmoid colectomy ??? COLONOSCOPY 10/03/2018 ??? GALLBLADDER SURGERY 2012 ??? HYSTERECTOMY 1999 [facility], R SO ??? LAPAROSCOPIC OVARIAN CYSTECTOMY ??? LESIONECTOMY Right 2009 benign skin lesion removed from R anterior chest ??? SINUS SURGERY 1984 ??? SKIN CANCER EXCISION Right 1994 V-Y flap R advent for BCCa ??? TERATOMA EXCISION Left 1995 L SO ??? TONSILLECTOMY AND ADENOIDECTOMY 1962 ??? TONSILLECTOMY AND ADENOIDECTOMY 1961 INITIAL REVIEW OF MEDICATIONS She has a current medication list which includes the following prescription(s): acetaminophen, alprazolam, hjtzcbw-xjajbdzhz-zhfk, cetirizine, l gasseri/b bifidum/b longum, losartan-hydrochlorothiazide, lutein, meloxicam, psyllium husk, soy isofla/blk cohosh/mag bark, sumatriptan, and venlafaxine xr. DRUG ALLERGIES She is allergic to penicillins and inapsine [droperidol]. SOCIAL HISTORY She Social History Socioeconomic History ??? Marital status: Spouse name: None ??? Number of children: None ??? Years of education: None ??? Highest education level: None Occupational History ??? None Tobacco Use ??? Smoking status: Never Smoker ??? Smokeless tobacco: Never Used Substance and Sexual Activity ??? Alcohol use: Not Currently ??? Drug use: Not Currently ??? Sexual activity: Defer Other Topics Concern ??? None Social History Narrative ??? None Social Determinants of Health Financial Resource Strain: Not on file Food Insecurity: Not on file Transportation Needs: Not on file Physical Activity: Not on file Stress: Not on file Social Connections: Not on file Intimate Partner Violence: Not on file Housing Stability: Not on file FAMILY HISTORY Her Family History Problem Relation Age of Onset ??? Colon cancer Mother ??? Hypertension Mother ??? Gallbladder disease Mother ??? Gallbladder disease Father ??? Diverticulosis Father ??? Heart attack Father 71 fatal day following LHC ??? Diverticulosis Brother ??? Diabetes Maternal Grandmother ??? Malig Hyperthermia Neg Hx ??? Anesthesia problems Neg Hx ??? Sudden Cardiac Neg Hx ??? Stroke Neg Hx ??? Bleeding Disorder Neg Hx ??? Clotting disorder Neg Hx REVIEW OF SYSTEMS Please see Orthopedic Patient Questionnaire reviewed by me today. PHYSICAL EXAMINATION On physical exam she is Height: 177.8 cm (5' 10 ) and Weight: 132.5 kg (292 lb). She is alert and oriented x3. Respirations are normal. Hearing is intact to the spoken word. Skin exam reveals no rashes, lesions or ulcers. Sensation is intact to light touch. DP and PT pulses are 2+. She has intact dorsiflexion, plantar flexion, inversion and eversion. Ankle strength is 5 out of 5. She has tenderness to palpation at the insertion of the Achilles tendon. There is swelling. No redness or bruising. No gaps or bulges in the mid substance of the Achilles. Mildly tender with a calcaneal squeeze. REVIEW OF X-RAYS/STUDIES Radiographs of her left ankle dated May 05, 2021 taken at an outside facility were reviewed and show no fracture. Ankle mortise is intact. There is enthesophyte at the Achilles insertion. MRI of the left ankle hindfoot dated [...] about the ankle most pronounced laterally. IMPRESSION/DIAGNOSIS Left Achilles tendinopathy with enthesitis, heterotopic ossification, mucoid degeneration or small intrasubstance tear and severe retrocalcaneal bursitis Left osteochondral lesion medial talar dome Left hindfoot chondrosis Left peroneus longus and brevis and posterior tib tendinopathy TREATMENT/PLAN We discussed treatment options in the office today. She will go into a cast. A short-leg weight-bearing fiberglass cast was applied to the left. She can weight bear as tolerated. She may need to be in a cast for up to 6 weeks. She will likely require physical therapy after. We did discuss surgery for this but will hold off on having her see any of our foot and ankle surgeons for now. I will checkher back in 2 weeks for cast off and new exam. She is agreeable with the plan. All of her questionswere answered today. I was in collaboration with Dr. Subramanian today. Miguel Bryson, RN,BSN, MSN, CREW BOSS, GAS OPERATOR-C, in collaborative practice with Dr. Nader Diaz and Dr. Jordon Subramanian Nurse Practitioner, Foot and Ankle Service [facility]. This is ANNA Dickey dictating using Paxata Direct Software Program. Sheet Metal Layout Worker variances may occur. Cosigned by Jordon Subramanian MD at 05/27/2021 8:30 AM LENS CLEANER CLEANER CLEANER * Gianni Mathew MLT - 05/24/2021 2:00 PM CSTAssociated Order(s): Ortho Casting/Splinting Documentation Post-Procedure Diagnose(s): Acute left ankle pain Ortho Casting/Splinting Documentation Date/Time: 05/24/2021 4:33 PM Performed by: Gianni Mathew MLT Authorized by: Miguel Bryson NP Sensation: Normal Skin Condition: Clean, dry, and intact Cast Applied: Yes Location: Foot Foot: L foot Supplies: Weightbearing strip, felt tiba pads, felt malleolar pads, cotton stocking/sleeve, cotton Padding and fiberglass Number of fiberglass rolls used: 7 Capillary Refill: Normal Patient tolerance of procedure: Tolerated well, no immediate complications Patient was provided cast care instructions, darco x-large cast shoe and a walker. CLEANER documented in this encounter Plan of Treatment Not on file documented as of this encounter Procedures Procedure Name Priority Date/Time Associated Diagnosis Comments ORTHO CASTING/SPLINTING Routine 05/24/2021 4:33 PM LENS CLEANER Acute left ankle pain documented in this encounter Results * Ortho Casting/Splinting Documentation (05/24/2021 4:33 PM LENS CLEANER) Narrative Gianni Mathew MLT - 05/24/2021 4:33 PM LENS CLEANER Gianni Mathew MLT ? 05/24/2021 ??4:35 PM Ortho Casting/Splinting Documentation Date/Time: 05/24/2021 4:33 PM Performed by: Gianni Mathew MLT Authorized by: Miguel Bryson NP Sensation: ??Normal Skin Condition: ??Clean, dry, and intact Cast Applied: Yes ?? Location: ??Foot Foot: ??L foot Supplies: ??Weightbearing strip, felt tiba pads, felt malleolar pads, cotton stocking/sleeve, cotton Padding and fiberglass Number of fiberglass rolls used: ??7 Capillary Refill: ??Normal Patient tolerance of procedure: ??Tolerated well, no immediate complications Patient was provided cast care instructions, darco x-large cast shoe and a walker. Miguel Bryson NP IN CLINIC/BEDSIDE ORDERABL ES Final Result documented in this encounter Visit Diagnoses Diagnosis Acute left ankle pain- Primary documented in this encounter Discontinued Medications Medication Sig Discontinue Reason Start Date End Da te cholecalciferol (VITAMIN D-3) 2,000 unit capsule Take 2,000 Units by mouth nightly 05/24/2021 gabapentin (NEURONTIN) 100 mg capsule Take 1 capsule (100 mg total) by mouth 3 (three) times a day 06/07/2019 05/24/2021 gabapentin (NEURONTIN) 100 mg capsule Take by mouth 3 (three) times a day 05/24/2021 gabapentin (NEURONTIN) 300 mg capsule Gabapentin 300 mg One tab PO at night. 12/18/2020 05/24/2021 ondansetron ODT (ZOFRAN-ODT) 4 mg disintegrating tabletIndications:Preven tion of Post-Operative Nausea and Vomiting Take 1 tablet (4 mg total) by mouth every 4 (four) hours as needed for nausea or vomiting 04/20/2019 05/24/2021 documented as of this encounter Care Teams Business Asst Relationship Specialty Start Date End Date Janine Terry MD [address] [place] [address] PCP - General Family Medicine 03/06/19 01/19/22 Adam English DO [address] [place] [address] Surgical Clinical Reviewer Gastroenterology 03/26/19 06/05/23 documented as of this encounter
--- OUTSIDE RECORDS SUMMARY | 2024-05-20 13:09 | XMS_ITS | Encounter Summary ---
Author Organization [facility] Address [address] [place] [address] Phone Care Team Providers Care Supervisor Paint Roller Covers Name Role Phone Janine Terry MD Primary Care Provider [phone] Adam English DO Unavailable [phone] Reason for Visit * Reason Comments Follow-up Encounter Details Date Type Department Care Team (Late st Contact Info) Description 06/01/2021 12:45 PM SUPERVISOR PHOSPHORUS PROCESSING Office Visit [facility] Orthopaedic Surgery [address] [facility] Medical Office Building [address] [address] Miguel Bryson, GEORGETTE [address] [place] [address] Achilles tendinitis of left lower extremity (Primary Dx) Social History Tobacco Use Types Packs/Day Years Used Date Smoking Tobacco: Never Smokeless Tobacco: Never Alcohol Use Standard Drinks/Week Comments Not Currently 0 (1 standard drink = 0.6 oz pur e alcohol) Comments No Sex and Gender Information Value Date Recorded Sex Assigned at Not on file Legal Sex Female 2:22 AM SUPERVISOR PHOSPHORUS PROCESSING Gender Identity Female 05/18/2019 7:17 PM SUPERVISOR PHOSPHORUS PROCESSING Sexual Orientation Straight 05/18/2019 7: 17 PM SUPERVISOR PHOSPHORUS PROCESSING documented as of this encounter Progress Notes * Miguel Bryson NP - 06/01/2021 12:45 PM CST RETURN PATIENT VISIT INTERIM HISTORY The patient is here for an unscheduled visit today. She has been in a cast on the left side. She has Achilles tendinopathy, small intrasubstance tear and retrocalcaneal bursitis. She has a medial talar dome osteochondral defect. She has been in a cast since May 24. She feels like her swellingis improving in the cast getting loose causing her ankle to move more in the cast. PHYSICAL EXAMINATION On physical exam the cast was removed in the office today. Skin exam reveals no rashes, lesions or ulcers. Sensation is intact to light touch. She still has some tenderness at the insertion of the Achilles tendon although improved from previous exam. Swelling is improving. No redness. No significant warmth. No open areas in the skin. REVIEW OF X-RAYS/STUDIES MRI of the left [...] tissue swelling about the ankle most pronounced laterally.?? IMPRESSION/DIAGNOSIS Left Achilles tendinopathy with enthesitis, heterotopic ossification, mucoid degeneration or small intrasubstance tear and severe retrocalcaneal bursitis Left osteochondral lesion medial talar dome without unstable inside to fragment Left hindfoot chondrosis Left peroneus longus and brevis posterior tib tendinopathy TREATMENT/PLAN We discussed treatment options in the office today. She is doing well with the cast. Her swelling continues to come down. She will go back into a new short-leg weight-bearing fiberglass cast. She canweightbear she feels comfortable. She will keep her follow-up appointment with us. She is agreeablewith the plan. All her questions were answered today. FOLLOW UP As scheduled I was in collaboration with Dr. Subramanian today. Miguel Bryson RN,BSN, MSN, CHICKEN CLEANER, LICENSED PHYSICAL THERAPIST-C, in collaborative practice with Dr. Nader Diaz and Dr. Jordon Subramanian Nurse Practitioner, Foot and Ankle Service [facility]. This is ANNA Dickey dictating using SecureAlert Software Program. Box Sealing Machine Catcher variances may occur. RVISOR PHOSPHORUS PROCESSING * Libby Hood BS - 06/01/2021 12:45 PM CSTAssociated Order(s): Ortho Casting/Splinting Documentation Post-Procedure Diagnose(s): Achilles tendinitis of left lower extremity Ortho Casting/Splinting Documentation Date/Time: 06/01/2021 10:19 AM Performed by: Libby Hood BS Authorized by: Miguel Bryson NP Sensation: Normal Skin Condition: Clean, dry, and intact Justo/Sutures Removed: No Pin Pulled: No Cast Removed: Yes Cast Applied: Yes Location: Ankle Ankle: L ankle Cast type: Short leg weightbearing cast Supplies: Cotton Padding, cotton stocking/sleeve, felt malleolar pads, felt tiba pads, fiberglass and weightbearing strip Number of fiberglass rolls used: 6 Capillary Refill: Normal Patient tolerance of procedure: Tolerated well, no immediate complications Cast instructions and precautions were given. RVISOR PHOSPHORUS PROCESSING documented in this encounter Plan of Treatment Not on file documented as of this encounter Procedures Procedure Name Priority Date/Time Associated Diagnosis Comments ORTHO CASTING/SPLINTING Routine 06/01/2021 10:19 AM SUPERVISOR PHOSPHORUS PROCESSING Achilles tendinitis of left lower extremity documented in this encounter Results * Ortho Casting/Splinting Documentation (06/01/2021 10:19 AM SUPERVISOR PHOSPHORUS PROCESSING) Narrative Libby Hood BS - 06/01/2021 10:19 AM SUPERVISOR PHOSPHORUS PROCESSING Libby Hood BS ? 06/03/2021 10:20 AM Ortho Casting/Splinting Documentation Date/Time: 06/01/2021 10:19 AM Performed by: Libby Hood BS Authorized by: Miguel Bryson NP Sensation: ??Normal Skin Condition: ??Clean, dry, and intact Justo/Sutures Removed: No ?? Pin Pulled: No ?? Cast Removed: Yes ?? Cast Applied: Yes ?? Location: ??Ankle Ankle: ??L ankle Cast type: ??Short leg weightbearing cast Supplies: ??Cotton Padding, cotton stocking/sleeve, felt malleolar pads, felt tiba pads, fiberglass and weightbearing strip Number of fiberglass rolls used: ??6 Capillary Refill: ??Normal Patient tolerance of procedure: ??Tolerated well, no immediate complications Cast instructions and precautions were given. us Miguel Bryson WOOD STRIP BLOCK FLOOR INSTALLER IN CLINIC/BEDSIDE ORDERABL ES Final Result documented in this encounter Visit Diagnoses Diagnosis Achilles tendinitis of left lower extremity- Primary documented in this encounter Care Teams Supervisor Paint Roller Covers Relationship Specialty Start Date End Date Janine Terry MD [address] [place] [address] PCP - General Family Medicine 03/06/19 01/19/22 Adam English DO [address] [place] [address] Pe Teacher Gastroenterology 03/26/19 06/05/23 documented as of this encounter
--- OUTSIDE RECORDS SUMMARY | 2024-05-20 13:09 | XMS_ITS | Encounter Summary ---
Author Organization [facility] Healthcare Address [address] [place] [address] Care Team Providers Care Transmission Inspector Name Role Phone RoemojganAdamBarbara DO Unavailable [phone] Mellissa Rodríguez Primary Care Provider Reason for Visit * Diagnostic Imaging (Routine) - Closed Specialty Diagnoses / Procedures Referred By Sisi de león Referred To Contact Diagnoses Abnormal levels of other serum enzymes Procedures US Abdomen Limited Mellissa Rodríguez PA [address] [place] [place] [address] Phone: tel: fax: [address] [address] Referral ID Status Reason Start Date Expiration Date Visits Re quested Visits Authorized [id number] Closed 01/18/2022 02/17/2023 1 1 Encounter Details Date Type Department Care Team (Latest Contact Info) Description 01/26/2022 9:00 AM CDT Ancillary Procedure [facility] at [address] [address] Abnormal levels of other serum enzymes Social History Tobacco Use Types Packs/Day Years Used Date Smoking Tobacco: Never Smokeless Tobacco: Never Alcohol Use Standard Drinks/Week Comments Not Currently 0 (1 standard drink = 0.6 oz pur e alcohol) Comments No Sex and Gender Information Value Date Recorded Sex Assigned at Not on file Legal Sex Female 2:22 AM INSURANCE ADMINISTRATIVE ASSISTANT Gender Identity Female 05/18/2019 7:17 PM INSURANCE ADMINISTRATIVE ASSISTANT Sexual Orientation Straight 05/18/2019 7: 17 PM INSURANCE ADMINISTRATIVE ASSISTANT documented as of this encounter Plan of Treatment Not on file documented as of this encounter Procedures Procedure Name Priority Date/Time Associated Diagnosis Comments US ABDOMEN LIMITED Schedule Routine, Read Routine (OP Routine) 01/26/2022 9:40 AM CDT Abnormal levels of other serum enzymes documented in this encounter Results * US Abdomen Limited (01/26/2022 9:40 AM CDT) Anatomical Region Laterality Modality Abdomen N/A Ultrasound 01/26/2022 11:2 1 AM CDT Impressions 01/26/2022 4:04 PM CDT 1. Mild diffuse hepatic steatosis with postcholecystectomy changes. ?? Dictated by: Claudia Patel M.D. The radiology attending physician has personally reviewed this study, and had reviewed and/or edited this written report and agrees with it. Electronically signed by: Darwin Salazar M.D. Narrative 01/26/2022 4:04 PM CDT EXAMINATION: ??LIMITED ABDOMINAL SONOGRAM HISTORY: ??62-year-old woman with obesity and remote history of cholecystectomy, presenting with elevated transaminases. ??AST 50, ALT 49. ??Evaluate etiology of transaminitis. COMPARISON: ??None FINDINGS: ?? Liver: The liver is normal in size. ??The echotexture is normal. ??The echogenicity is increased. There is no surface nodularity. No focal solid lesions are visualized. ?? Gallbladder: The gallbladder is surgically absent. Bile Duct: There is no intrahepatic bile duct dilatation. The diameter of the common duct is 3 mm in the proximal segment and 8 mm in the mid segment and 3 mm in the distal segment. ??Borderline dilatation of the common bile duct is expected in patients status post cholecystectomy. Right Kidney: There is no hydronephrosis in the visualized portions of the right kidney. Pancreas: The visualized portions of the head and body of the pancreas are normal. Procedure Note Darwin Slaazar MD - 01/26/2022 EXAMINATION: LIMITED ABDOMINAL SONOGRAM HISTORY: 62-year-old woman with obesity and remote history of cholecystectomy, presenting with elevated transaminases. AST 50, ALT 49. Evaluate etiology of transaminitis. COMPARISON: None FINDINGS: Liver: The liver is normal in size. The echotexture is normal. The echogenicity is increased. There is no surface nodularity. No focal solid lesions are visualized. Gallbladder: The gallbladder is surgically absent. Bile Duct: There is no intrahepatic bile duct dilatation. The diameter of the common duct is 3 mm in the proximal segment and 8 mm in the mid segment and 3 mm in the distal segment. Borderline dilatation of the common bile duct is expected in patients status post cholecystectomy. Right Kidney: There is no hydronephrosis in the visualized portions of the right kidney. Pancreas: The visualized portions of the head and body of the pancreas are normal. IMPRESSION: 1. Mild diffuse hepatic steatosis with postcholecystectomy changes. Dictated by: Claudia Patel M.D. The radiology attending physician has personally reviewed this study, and had reviewed and/or edited this written report and agrees with it. Electronically signed by: Darwin Salazar M.D. Mellissa GERONIMO IM US PROCEDURES Final Result documented in this encounter Visit Diagnoses Diagnosis Abnormal levels of other serum enzymes documented in this encounter Care Teams Transmission Inspector Relationship Specialty Start Date End Date Mellissa Rodríguez PA [address] [place] [address] PCP - General Physician Telehealth Case Manager 01/21/22 04/14/22 Adam English DO Station Usher Gastroenterology 03/26/19 06/05/23 documented as of this encounter
--- OUTSIDE RECORDS SUMMARY | 2024-05-20 13:09 | XMS_ITS | Encounter Summary ---
Author Organization [facility] Address [address] [place] [address] Care Team Providers Care Chief Pharmacist Name Role Phone Adam English DO Unavailable [phone] Mellissa Rodríguez Primary Care Provider Encounter Details Date Type Department Care Team (Late st Contact Info) Description 01/21/2022 10:15 AM CDT Lab [facility] Outpatient Lab at [address] [id number] Abnormal levels of other serum enzymes (Primary Dx) Social History Tobacco Use Types Packs/Day Years Used Date Smoking Tobacco: Never Smokeless Tobacco: Never Alcohol Use Standard Drinks/Week Comments Not Currently 0 (1 standard drink = 0.6 oz pur e alcohol) Comments No Sex and Gender Information Value Date Recorded Sex Assigned at Not on file 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 Current interpretive data was last revised on 19. Hep B core IgM Nonreactive Nonreactive CERGARETH Comment: Interpretive Data If HepB Core IgM Ab is reported as Equivocal, a new sample should be drawn in two weeks for testing. Current interpretive data was last revised on 19. Hep C Ab Nonreactive Nonreactive BRITTANY Comment: Interpretive Data Nonreactive: Antibodies to HCV [...] last revised on 2019. HepBsAg Nonreactive Nonreactive [facility] Blood (Blood, Venous) 01/21/2022 10:19 AM CDT 01/21/2022 2:43 PM CDT Narrative BRITTANY - 01/21/2022 4:00 PM CDT Fax results to Mellissa Neff at [phone] Mellissa GERONIMO LAB MICROBIOLOGY - GENE RAL ORDERABLES Final Result Performing Organization Address City/State/ZIP [place] Phone Number [facility] [id number] [facility] Department [place] [address] documented in this encounter Visit Diagnoses Diagnosis Abnormal levels of other serum enzymes- Primary Abnormal levels of other serum enzymes documented in this encounter Care Teams Chief Pharmacist Relationship Specialty Start Date End Date Mellissa Rodríguez PA [address] [place] [address] PCP - General Physician Journey Lineman 01/21/22 04/14/22 Adam English DO Metal Riveter Gastroenterology 03/26/19 06/05/23 documented as of this encounter
--- OUTSIDE RECORDS SUMMARY | 2024-05-20 13:09 | XMS_ITS | Encounter Summary ---
Author Organization [facility] Address [address] [place] [address] Care Team Providers Care Civil Geotechnical Engineer Name Role Phone Janine Terry MD Primary Care Provider [phone] Adam English DO Unavailable [phone] Encounter Details Date Type Department Care Team (Late st Contact Info) Description 01/12/2022 2:00 PM CDT Lab [address] [address] Social History Tobacco Use Types Packs/Day Years Used Date Smoking Tobacco: Never Smokeless Tobacco: Never Alcohol Use Standard Drinks/Week Comments Not Currently 0 (1 standard drink = 0.6 oz pur e alcohol) Comments No Sex and Gender Information Value Date Recorded Sex Assigned at Not on file 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 Gender Identity Female 05/18/2019 7:17 PM BALLOON SELLER Sexual Orientation Straight 05/18/2019 7: 17 PM BALLOON SELLER documented as of this encounter Plan of Treatment Not on file documented as of this encounter Procedures Procedure Name Priority Date/Time Associated Diagnosis Comments DIFFERENTIAL AUTO Routine 01/12/2022 9:1 4 AM CDT CBC WITH AUTO DIFFERENTIAL Routine 01/12/2022 9:14 AM CDT HEPATIC FUNCTION PANEL Routine 01/12/2022 9:14 AM CDT LIPID PANEL Routine 01/12/2022 9:14 AM CDT documented in this encounter Results * Differential, auto (01/12/2022 9:14 AM CDT) Neutrophil abs 3.9 1.7 - 6.5 K/cumm [facility] Imm gran abs 0.0 0.0 - 0.1 K/cumm [facility] Lymphocyte abs 2.9 0.8 - 3.3 K/cumm [facility] Monocyte abs 0.5 0.2 - 0.8 K/cumm [facility] Eosinophil abs 0.1 0.0 - 0.5 K/cumm [facility] Basophil abs 0.1 0.0 - 0.1 K/cumm [facility] Neutrophil pct 51.8 % CERNER Comment: Interpretive Data Percent cell count reference ranges are not reported, since discordance with absolute values may lead to misinterpretation of CBC data. Current Interpretive Data was last revised on 2017. Imm gran pct 0.3 % CERNER Comment: Interpretive Data Percent cell count reference ranges are not reported, since discordance with absolute values may lead to misinterpretation of CBC data. Current Interpretive Data was last revised on 2017. Lymphocyte pct 38.9 % C[facility]ER Comment: Interpretive Data Percent cell count reference ranges are not reported, since discordance with absolute values may lead to misinterpretation of CBC data. Current Interpretive Data was last revised on 2017. Monocyte pct 6.5 % [facility] Comment: Interpretive Data Percent cell count reference ranges are not reported, since discordance with absolute values may lead to misinterpretation of CBC data. Current Interpretive Data was last revised on 2017. Eosinophil pct 1.8 % [facility] Comment: Interpretive Data Percent cell count reference ranges are not reported, since discordance with absolute values may lead to misinterpretation of CBC data. Current Interpretive Data was last revised on 2017. Basophil pct 0.7 % C[facility]ER Comment: Interpretive Data Percent cell count reference ranges are not reported, since discordance with absolute values may lead to misinterpretation of CBC data. Current Interpretive Data was last revised on 2017. Blood 01/12/2022 9:14 AM CDT 01/12/2022 2:24 PM CDT Mellissa GERONIMO LAB BLOOD ORDERABLES Fi nal Result Performing Organization Address City/[facility] Co de Phone Number BRITTANY RIVERA [address] [place] [address] * CBC with auto differential (01/12/2022 9:14 AM CDT) WBC 7.4 3.8 - 9.9 K/cumm [facility] Hgb 14.8 11.9 - 15.5 g/dL [facility] Hct 44.4 35.6 - 45.5 % [facility] Plt 290 150 - 400 K/cumm [facility] MPV 11.6 9.1 - 12.3 fL [facility] RBC 4.77 3.90 - 5.20 M/cumm [facility] MCV 93.1 81.3 - 96.4 fL [facility] MCH 31.0 27.1 - 33.3 pg [facility] MCHC 33.3 32.3 - 35.7 g/dL [facility] RDW CV 13.0 11.1 - 14.9 % [facility] RDW SD 44.5 35.7 - 48.1 fL [facility] NRBC abs 0.00 0.00 - 0.01 K/cumm [facility] Blood 01/12/2022 9:14 AM CDT 01/12/2022 2:24 PM CDT Mellissa GERONIMO LAB BLOOD ORDERABLES Fi nal Result Performing Organization Address [facility] Co de Phone Number BRITTANY RIVERA [address] of [employer] [facility] [place], [place] [phone] * (ABNORMAL) Hepatic function panel (01/12/2022 9:14 AM CDT) Bilirubin, total 0.6 0.1 - 1.2 mg/dL [facility] Bilirubin, direct <0.2 0.1 - 0.3 mg/dL [facility] Protein, pl 7.2 6.5 - 8.5 g/dL [facility] Albumin 4.1 3.5 - 5.0 g/dL [facility] Alk phos 49 40 - 130 Units/L [facility] ALT 49(H) 7 - 45 Units/L [facility] AST 50(H) 10 - 45 Units/L [facility] Blood 01/12/2022 9:14 AM CDT 01/12/2022 2:24 PM CDT Mellissa GERONIMO LAB BLOOD ORDERABLES Fi nal Result BRITTANY [address] [place] [address] * Lipid panel (01/12/2022 9:14 AM CDT) Cholesterol 157 30 - 199 mg/dL [facility] Comment: Interpretive Data Ages < or = [...] Data was last revised on 2018. Triglycerides 95 <=149 mg/dL [facility] Comment: Interpretive Data Ages < or = [...] Data was last revised on 2018. HDL 50 >=40 mg/dL BRITTANY Comment: Interpretive Data Ages < [...] was last revised on 2018. LDL, calculated 88 <=129 mg/dL BRITTANY Comment: Interpretive Data Ages < [...] was last revised on 2018. Non-HDL Cholesterol 107 mg/dL BRITTANY RIVERA Comment: Interpretive Data Ages [...] last revised on 2018. Chol/HDL ratio 3 BRITTANY RIVERA Blood 01/12/2022 9:14 AM CDT 01/12/2022 2:24 PM CDT Mellissa GERONIMO LAB BLOOD ORDERABLES nal Result BRITTANY [address] Department [place] [address] documented in this encounter Visit Diagnoses Not on filedocumented in this encounter Care Teams Civil Geotechnical Engineer Relationship Specialty Start Date End Date Janine Terry MD [address] [place] [address] PCP - General Family Medicine 03/06/19 01/19/22 Adam English DO [address] [place] [address] Gerontology Aide Gastroenterology 03/26/19 06/05/23 documented as of this encounter
--- OUTSIDE RECORDS SUMMARY | 2024-05-20 13:09 | XMS_ITS | Encounter Summary ---
Author Organization [facility] Address [address] [place] [address] Phone Care Team Providers Care Master Welder Name Role Phone Janine Terry MD Primary Care Provider [phone] Adam English DO Unavailable [phone] Reason for Visit * Reason Comments Cast Problem Encounter Details Date Type Department Care Team (Late st Contact Info) Description 05/26/2021 12:45 PM ALTERNATIVE ENERGY TECHNICIAN Office Visit [facility] Orthopaedic Surgery [facility] Medical Office Building [address] [place] [address] Miguel Bryson, [place] [address] [place] [id number] Achilles tendinitis of left lower extremity (Primary Dx) Social History Tobacco Use Types Packs/Day Years Used Date Smoking Tobacco: Never Smokeless Tobacco: Never Alcohol Use Standard Drinks/Week Comments Not Currently 0 (1 standard drink = 0.6 oz pur e alcohol) Comments No Sex and Gender Information Value Date Recorded Sex Assigned at Not on file Legal Sex Female 2:22 AM ALTERNATIVE ENERGY TECHNICIAN Gender Identity Female 05/18/2019 7:17 PM ALTERNATIVE ENERGY TECHNICIAN Sexual Orientation Straight 05/18/2019 7: 17 PM ALTERNATIVE ENERGY TECHNICIAN documented as of this encounter Progress Notes * Miguel Bryson NP - 05/26/2021 12:45 PM CST RETURN PATIENT VISIT INTERIM HISTORY The patient is here for an unscheduled visit today. She has been in a cast on the left side. She has Achilles tendinopathy, small intrasubstance tear and retrocalcaneal bursitis. She also has a medial talar dome osteochondral defect. She was put into a cast on May 24. Her cast got loose. She can feel her heel rubbing in the back. PHYSICAL EXAMINATION On physical exam the cast was removed in the office today. Skin exam reveals no rashes, lesions or ulcers. Sensation is intact to light touch. She still has some tenderness to palpation at the insertion of the Achilles tendon. She has swelling but it is improved. No redness or bruising. No open areas to the skin. REVIEW OF X-RAYS/STUDIES MRI of [...] discussed treatment options in the office today. The cast is helping quite a bit with her swelling. She will go back into a new short-leg weight-bearing fiberglass cast. She can weight bear as shefeels comfortable. She will keep her follow-up appointment. If her cast continues to get loose before then she will call. She is agreeable with the plan. All of her questions were answered today. FOLLOW UP As scheduled I was in collaboration with Dr. Subramanian today. Miguel Bryson, RN,BSN, MSN, CHEMICAL ENGINEERING TECHNOLOGIST, INTERIOR SURFACE INSULATION WORKER-C, in collaborative practice with Dr. Nader Diaz and Dr. Jordon Subramanian Nurse Practitioner, Foot and Ankle Service [facility] Orthopedics. This is ANNA Dickey dictating using [employer] Program. Bulb Inspector variances may occur. RNATIVE ENERGY TECHNICIAN * Sukhwinder Torres - 05/26/2021 12:45 PM CSTAssociated Order(s): Ortho Casting/Splinting Documentation Post-Procedure Diagnose(s): Achilles tendinitis of left lower extremity Ortho Casting/Splinting Documentation Date/Time: 05/26/2021 1:33 PM Performed by: Sukhwinder Torres Authorized by: Miguel Bryson NP Sensation: Normal Skin Condition: Clean, dry, and intact Justo/Sutures Removed: No Pin Pulled: No Cast Removed: Yes Cast Applied: Yes Location: Ankle Ankle: L ankle Cast type: Total contact weightbearing cast Supplies: Cotton stocking/sleeve, felt malleolar pads, felt tiba pads and fiberglass Number of fiberglass rolls used: 7 Capillary Refill: Normal Patient tolerance of procedure: Tolerated well, no immediate complications RNATIVE ENERGY TECHNICIAN documented in this encounter Plan of Treatment Not on file documented as of this encounter Procedures Procedure Name Priority Date/Time Associated Diagnosis Comments ORTHO CASTING/SPLINTING Routine 05/26/2021 1:33 PM ALTERNATIVE ENERGY TECHNICIAN Achilles tendinitis of left lower extremity documented in this encounter Results * Ortho Casting/Splinting Documentation (05/26/2021 1:33 PM ALTERNATIVE ENERGY TECHNICIAN) Narrative Sukhwinder Torres - 05/26/2021 1:33 PM ALTERNATIVE ENERGY TECHNICIAN Sukhwinder Torres ? 05/26/2021 ??1:34 PM Ortho Casting/Splinting Documentation Date/Time: 05/26/2021 1:33 PM Performed by: Sukhwinder Torres Authorized by: Miguel Bryson NP Sensation: ??Normal Skin Condition: ??Clean, dry, and intact Justo/Sutures Removed: No ?? Pin Pulled: No ?? Cast Removed: Yes ?? Cast Applied: Yes ?? Location: ??Ankle Ankle: ??L ankle Cast type: ??Total contact weightbearing cast Supplies: ??Cotton stocking/sleeve, felt malleolar pads, felt tiba pads and fiberglass Number of fiberglass rolls used: ??7 Capillary Refill: ??Normal Patient tolerance of procedure: ??Tolerated well, no immediate complications us Miguel Bryson REVENUE CYCLE CONSULTANT IN CLINIC/BEDSIDE ORDERABL ES Final Result documented in this encounter Visit Diagnoses Diagnosis Achilles tendinitis of left lower extremity- Primary documented in this encounter Care Teams Master Welder Relationship Specialty Start Date End Date Janine Terry MD [address] [place] [address] PCP - General Family Medicine 03/06/19 01/19/22 Adam English DO [address] [place] [address] Administrative Operations Coordinator Gastroenterology 03/26/19 06/05/23 documented as of this encounter
--- OUTSIDE RECORDS SUMMARY | 2024-05-20 13:09 | XMS_ITS | Encounter Summary ---
Author Organization [facility] Address [address] [place] [address] Care Team Providers Care Can Patcher Name Role Phone Janine Terry MD Primary Care Provider [phone] Adam English DO Unavailable [phone] Reason for Referral * Diagnostic Imaging (Routine) - Closed Specialty Diagnoses / Procedures Referred By Sisi de león Referred To Contact Diagnoses Encounter for screening mammogram for malignant neoplasm of breast Procedures Screening Mammogram Bilateral W Lalo Screening Mammogram, Self [address] [address] Referral ID Status Reason Start Date Expiration Date Visits Re quested Visits Authorized [id number] Closed 02/12/2021 03/14/2022 1 1 CIPAL PROGRAMMER Reason for Visit * Diagnostic Imaging (Routine) - Closed Specialty Diagnoses / Procedures Referred By Sisi de león Referred To Contact Diagnoses Encounter for screening mammogram for malignant neoplasm of breast Procedures Screening Mammogram Bilateral W [place] Screening Mammogram, Self [address] [address] Referral ID Status Reason Start Date Expiration Date Visits Re quested Visits Authorized [id number] Closed 02/12/2021 03/14/2022 1 1 Encounter Details Date Type Department Care Team (Latest Contact Info) Description 03/31/2021 7:05 AM PRINCIPAL PROGRAMMER - 03/31/2021 11:59 PM PRINCIPAL PROGRAMMER Hospital Encounter [facility] [address] [place] [address], [place] [address] Screening Mammogram, Self Encounter for screening mammogram for malignant neoplasm of breast Discharge Disposition: Discharge to home or self care Social History Tobacco Use Types Packs/Day Years Used Date Smoking Tobacco: Never Smokeless Tobacco: Never Alcohol Use Standard Drinks/Week Comments Not Currently 0 (1 standard drink = 0.6 oz pur e alcohol) Comments No Sex and Gender Information Value Date Recorded Sex Assigned at Not on file Legal Sex Female 2:22 AM PRINCIPAL PROGRAMMER Gender Identity Female 05/18/2019 7:17 PM PRINCIPAL PROGRAMMER Sexual Orientation Straight 05/18/2019 7: 17 PM PRINCIPAL PROGRAMMER documented as of this encounter Medications at Time of Discharge ALPRAZolam (XANAX) 0.25 mg tablet Take 1 tablet (0.25 mg total) by mouth 3 (three) times a day as needed for anxiety losartan-hydroCHLOR Othiazide (HYZAAR) 50-12.5 mg per tablet 1/2 tab am 10/14/2020 acetaminophen (TYLENOL) 500 mg tablet Take 1,000 mg by mouth every 6 (six) hours as needed for pain 2 dkhnqoz-gyqcgevmf-p inc tablet Take 1 tablet by mouth nightly 1000mg/400mg/15 mg every day 3 cetirizine (ZyrTEC) 10 mg tablet Take 1 tablet (10 mg total) by mouth as needed for allergies 4 cholecalciferol (VITAMIN D-3) 2,000 unit capsule Take 2,000 Units by mouth nightly 2 gabapentin (NEURONTIN) 100 mg capsule Take 1 capsule (100 mg total) by mouth 3 (three) times a day 90 capsule 06/07/2019 2 gabapentin (NEURONTIN) 100 mg capsule Take by mouth 3 (three) times a day 2 gabapentin (NEURONTIN) 300 mg capsule Gabapentin 300 mg One tab PO at night. 30 capsule 12/18/2020 2 L gasseri/B bifidum/B longum ([facility] ORAL) Take 1 tablet by mouth every morning [facility] every day unsure med dosage 3 lutein 20 mg tablet Take 1 tablet by mouth nightly hs 3 ondansetron ODT (ZOFRAN-ODT) 4 mg disintegrating tabletIndications:P revention of Post-Operative Nausea and Vomiting Take 1 tablet (4 mg total) by mouth every 4 (four) hours as needed for nausea or vomiting 20 tablet 04/20/2019 2 psyllium husk (METAMUCIL ORAL) Take 6 Caplet by mouth every morning 6 caps am 4 soy isofla/blk cohosh/mag bark (ESTROVEN ORAL) Take by mouth Unsure med dosage every day hs 4 venlafaxine XR (EFFEXOR-XR) 150 mg 24 hr capsuleIndications: Anxiety with Depression Take 150 mg by mouth nightly 2 documented as of this encounter Discharge Disposition Disposition Code Departure Means Destination Discharge to home or self care documented in this encounter Plan of Treatment Not on file documented as of this encounter Procedures Procedure Name Priority Date/Time Associated Diagnosis Comments SCREENING MAMMOGRAM BILATERAL W LALO Schedule Routine, Read Routine (OP Routine) 03/31/2021 7:30 AM PRINCIPAL PROGRAMMER Encounter for screening mammogram for malignant neoplasm of breast documented in this encounter Results * Screening Mammogram Bilateral W Lalo (03/31/2021 7:30 AM PRINCIPAL PROGRAMMER) Anatomical Region Laterality Modality Breast Bilateral Mammography Narrative 04/02/2021 12:44 PM PRINCIPAL PROGRAMMER Mammogram Technique: Bilateral Digital Breast Tomosynthesis, Bilateral C-view 2D Screening mammogram. ??Views obtained: ??bilateral craniocaudal and bilateral mediolateral oblique. ??Computer Aided Detection was performed. Mammogram Findings: The present examination has been compared to prior imaging studies performed at [facility]. [place] on 11/02/2015 and 01/27/2017, and at [facility] on 02/18/2020. The breasts are almost entirely fatty. There is no suspicious abnormality in either breast. Impression: There is no mammographic evidence of malignancy. Annual screening mammography is recommended. OVERALL FINAL ASSESSMENT: BI-RADS CATEGORY 1: ??Negative. Procedure Note Tawana Chester MD - 04/02/2021 Mammogram Technique: Bilateral Digital Breast Tomosynthesis, Bilateral C-view 2D Screening mammogram. Views obtained: bilateral craniocaudal and bilateral mediolateral oblique. Computer Aided Detection was performed. Mammogram Findings: The present examination has been compared to prior imaging studies performed at [facility] on 11/02/2015 and 01/27/2017, and at [facility] on 02/18/2020. The breasts are almost entirely fatty. There is no suspicious abnormality in either breast. Impression: There is no mammographic evidence of malignancy. Annual screening mammography is recommended. OVERALL FINAL ASSESSMENT: BI-RADS CATEGORY 1: Negative. us Self Screening Mammogram IMG MAMMO PROCEDURES Fi nal Result documented in this encounter Visit Diagnoses Diagnosis Encounter for screening mammogram for malignant neoplasm of breast documented in this encounter Care Teams Can Patcher Relationship Specialty Start Date End Date Janine Terry MD [address] [place] [address] PCP - General Family Medicine 03/06/19 01/19/22 Adam English DO [address] [place] [address] Prospecting Observer Gastroenterology 03/26/19 06/05/23 documented as of this encounter
--- OUTSIDE RECORDS SUMMARY | 2024-05-20 13:09 | XMS_ITS | Encounter Summary ---
Author Organization [facility] Healthcare Address [address] [place] [address] Care Team Providers Care [employer] Math Teacher Name Role Phone Janine Terry MD Primary Care Provider [phone] Adam English DO Unavailable [phone] Reason for Referral * Diagnostic Imaging (Routine) - Closed Specialty Diagnoses / Procedures Referred By Contac t Referred To Contact Diagnoses Pain and swelling of left lower extremity Procedures US VEIN DUPLEX LOWER EXTREMITY LEFT LIMITED, [place] [address] [place] [address] Phone: tel: fax: [facility] (All Locations) Referral ID Status Reason Start Date Expiration Date Visits Re quested Visits Authorized [id number] Closed 06/24/2021 07/24/2022 1 1 T HAUL DRIVER Reason for Visit * Diagnostic Imaging (Routine) - Closed Specialty Diagnoses / Procedures Referred By Contac t Referred To Contact Diagnoses Pain and swelling of left lower extremity Procedures US VEIN DUPLEX LOWER EXTREMITY LEFT [place], [place] [address] [place] [address] Phone: tel: fax: [facility] (All Locations) Referral ID Status Reason Start Date Expiration Date Visits Re quested Visits Authorized [id number] Closed 06/24/2021 07/24/2022 1 1 Encounter Details Date Type Department Care Team (Latest Contact Info) Description 06/24/2021 2:56 PM SHORT HAUL DRIVER - 06/24/2021 11:59 PM SHORT HAUL DRIVER Hospital Encounter [facility] [address] [place] [address] [place] [address] [place] [address] [place] [address] [place] [address] Pain and swelling of left lower extremity Discharge Disposition: Discharge to home or self care Social History Tobacco Use Types Packs/Day Years Used Date Smoking Tobacco: Never Smokeless Tobacco: Never Alcohol Use Standard Drinks/Week Comments Not Currently 0 (1 standard drink = 0.6 oz pur e alcohol) Comments No Sex and Gender Information Value Date Recorded Sex Assigned at Not on file Legal Sex Female 2:22 AM SHORT HAUL DRIVER Gender Identity Female 05/18/2019 7:17 PM SHORT HAUL DRIVER Sexual Orientation Straight 05/18/2019 7: 17 PM SHORT HAUL DRIVER documented as of this encounter Medications at Time of Discharge ALPRAZolam (XANAX) 0.25 mg tablet Take 1 tablet (0.25 mg total) by mouth 3 (three) times a day as needed for anxiety losartan-hydroCH LOROthiazide (HYZAAR) 50-12.5 mg per tablet 1/2 tab am 10/14/2020 SUMAtriptan (IMITREX) 100 mg tablet acetaminophen (TYLENOL) 500 mg tablet Take 1,000 mg by mouth every 6 (six) hours as needed for pain 2 calcium-magnesiu m-zinc tablet Take 1 tablet by mouth nightly 1000mg/400mg/15 mg every day 3 cetirizine (ZyrTEC) 10 mg tablet Take 1 tablet (10 mg total) by mouth as needed for allergies 4 L gasseri/B bifidum/B longum ([facility] ORAL) Take 1 tablet by mouth every morning [facility] every day unsure med dosage 3 lutein 20 mg tablet Take 1 tablet by mouth nightly hs 3 psyllium husk (METAMUCIL ORAL) Take 6 Caplet by mouth every morning 6 caps am 4 soy isofla/blk cohosh/mag bark (ESTROVEN ORAL) Take by mouth Unsure med dosage every day hs 4 venlafaxine XR (EFFEXOR-XR) 150 mg 24 hr capsuleIndicatio ns:Anxiety with Depression Take 150 mg by mouth nightly 2 documented as of this encounter Discharge Disposition Disposition Code Departure Means Destination Discharge to home or self care documented in this encounter Plan of Treatment Not on file documented as of this encounter Procedures Procedure Name Priority Date/Time Associated Diagnosis Comments US VEIN DUPLEX LOWER EXTREMITY LEFT LIMITED Schedule Routine, Read Routine (OP Routine) 06/24/2021 4:14 PM SHORT HAUL DRIVER Pain and swelling of left lower extremity documented in this encounter Results * US VEIN DUPLEX LOWER EXTREMITY LEFT LIMITED, UNILATERAL (06/24/2021 4:14 PM SHORT HAUL DRIVER) Anatomical Region Laterality Modality Vascular Left Ultrasound 06/24/2021 4:18 PM SHORT HAUL DRIVER Narrative 06/25/2021 11:42 AM SHORT HAUL DRIVER [facility] - Department of Vascular Surgery, Vascular Laboratory [address] [place] [address] Lower Extremity Venous Ultrasound Report Patient Name: JOSY POOLE : 1960 (61y 5m) Study Date: 06/24/2021 4:18:55 PM Gender: F Tech: BAD Location: [facility] Ref.Provider: KEO BRYSON Quality: Adequate Order Provider: [...] lower extremity pain and swelling. Findings: Performing Supervisor Cartography: Carolyn Gilbert RVT. Left: Venous Doppler signals [...] performed. Electronically Signed By: Sukhwinder Stubbs MD [facility] [phone] 2021-06-25 11:42:55 SHORT HAUL DRIVER CC: CC: Procedure Note Sukhwinder Stubbs MD - 06/25/2021 [facility] - Department of Vascular Surgery,Vascular Laboratory [address] [place] [address] Lower Extremity Venous Ultrasound Report Patient Name: JOSY POOLEPatient ID: [id number] : 1960 (61y 5m)Study Date: 06/24/2021 4:18:55 PM Gender: FAccession #: [id number] Tech: BADLocation: [facility] Ref.Provider: Ramy BRYSONality: Adequate Order Provider: Meli BRYSON #: [id number] Procedures: Vascular Report: Venous Duplex imaging was performed in the left lower extremity. Thecommon femoral, femoral, popliteal, posterior tibial, peroneal veins were evaluated forpatency, spontaneity and phasicity with Doppler, compression and augmentationmaneuvers. Great saphenous vein proximal at the junction was evaluated with compressionmaneuvers. Indications: left lower extremity pain and swelling. Findings: Performing Supervisor Cartography: Carolyn Gilbert RVT. Left: Venous Doppler signals [...] performed. Electronically Signed By: Sukhwinder Stubbs MD [facility] [phone] 2021-06-25 11:42:55 SHORT HAUL DRIVER CC: CC: us Keo Bryson ENDOCRINOLOGIST IMG US PROCEDURES Final Re sult documented in this encounter Visit Diagnoses Diagnosis Pain and swelling of left lower extremity documented in this encounter Care Teams [employer] Math Teacher Relationship Specialty Start Date End Date Janine Terry MD [address] [place] [address] PCP - General Family Medicine 03/06/19 01/19/22 Adam English DO [address] [place] [address] Keymodule Assembly Supervisor Gastroenterology 03/26/19 06/05/23 documented as of this encounter
--- OUTSIDE RECORDS SUMMARY | 2024-05-20 13:09 | XMS_ITS | Encounter Summary ---
Author Organization [facility] Healthcare Address [address] [place] [address] Care Team Providers Care Heel Seat Flap Stapler Name Role Phone Janine Terry MD Primary Care Provider [phone] Adam English DO Unavailable [phone] Reason for Referral * MRI/CAT/PET Scan (Routine) - Closed Specialty Diagnoses / Procedures Referred By Sisi de león Referred To Contact Radiology Diagnoses Pain in unspecified foot Procedures MRI Foot Left WO Contrast Ladarius Polanco PA [address] [place] [address] Phone: tel: fax: [address] [phone] Referral ID Status Reason Start Date Expiration Date Visits Re quested Visits Authorized [id number] Closed 05/17/2021 06/16/2022 1 1 [place] DISTRICT MANAGER Reason for Visit * MRI/CAT/PET Scan (Routine) - Closed Specialty Diagnoses / Procedures Referred By Sisi de león Referred To Contact Radiology Diagnoses Pain in unspecified foot Procedures MRI Foot Left WO Contrast Ladarius Polanco PA [address] [place] [address] Phone: tel: fax: [address] [phone] Referral ID Status Reason Start Date Expiration Date Visits Re quested Visits Authorized [id number] Closed 05/17/2021 06/16/2022 1 1 Encounter Details Date Type Department Care Team (Late st Contact Info) Description 05/19/2021 6:12 AM RETAIL DISTRICT MANAGER - 05/19/2021 11:59 PM RETAIL DISTRICT MANAGER Hospital Encounter [facility] [address] [place], [place] [id number] Unknown, Monty Polanco, JUANPABLO Hung [address] [place] [place] [address] Pain in unspecified foot Discharge Disposition: Discharge to home or self care Social History Tobacco Use Types Packs/Day Years Used Date Smoking Tobacco: Never Smokeless Tobacco: Never Alcohol Use Standard Drinks/Week Comments Not Currently 0 (1 standard drink = 0.6 oz pur e alcohol) Comments No Sex and Gender Information Value Date Recorded Sex Assigned at Not on file Legal Sex Female 2:22 AM RETAIL DISTRICT MANAGER Gender Identity Female 05/18/2019 7:17 PM RETAIL DISTRICT MANAGER Sexual Orientation Straight 05/18/2019 7: 17 PM RETAIL DISTRICT MANAGER documented as of this encounter Medications at Time of Discharge ALPRAZolam (XANAX) 0.25 mg tablet Take 1 tablet (0.25 mg total) by mouth 3 (three) times a day as needed for anxiety losartan-hydroCHLOR Othiazide (HYZAAR) 50-12.5 mg per tablet 05/16 tab am 10/14/2020 SUMAtriptan (IMITREX) 100 mg tablet acetaminophen (TYLENOL) 500 mg tablet Take 1,000 mg by mouth every 6 (six) hours as needed for pain 2 jgscajg-[id number]-u inc tablet Take 1 tablet by mouth [...] capsule 12/18/2020 2 L gasseri/B bifidum/B longum ([facility] ORAL) Take 1 tablet [...] Name Priority Date/Time Associated Diagnosis Comments MRI FOOT LEFT WO CONTRAST Schedule Routine, Read Routine (OP Routine) 05/19/2021 7:14 AM RETAIL DISTRICT MANAGER Pain in unspecified foot documented in this encounter Results * MRI Foot Left WO Contrast (05/19/2021 7:14 AM RETAIL DISTRICT MANAGER) Anatomical Region Laterality Modality Lower Extremities Left Magnetic Reson ance 05/19/2021 9:05 AM RETAIL DISTRICT MANAGER Impressions 05/19/2021 9:21 AM RETAIL DISTRICT MANAGER 1. Severe insertional left Achilles tendinopathy involving the distal 5 cm of the tendon with enthesitis, heterotopic ossification, a linear area of mucoid degeneration or small intrasubstance tear measuring 3 x 4mm, and severe retrocalcaneal bursitis. 2. Small osteochondral lesion of the posteromedial talar dome. 3. Mild multifocal hindfoot chondrosis. 4. Mild peroneus longus/brevis and posterior tibialis tendinopathy without tear. Dictated by: Ruben Ryan M.D. The radiology attending physician has personally reviewed this study, and had reviewed and/or edited this written report and agrees with it. Electronically signed by: Glenroy Aguillon M.D. Narrative 05/19/2021 9:21 AM RETAIL DISTRICT MANAGER EXAMINATION: 1. MR left ankle and hindfoot without contrast HISTORY: ??Left ankle pain and swelling for several weeks FINDINGS: Comparison left ankle radiographs 05/05/2021 have been reviewed. MR examination of the left ankle and hindfoot is performed with a local coil. No intravenous or intra-articular contrast was administered for this examination. Sagittal short TR/TE and STIR images and transverse and coronal short TR/TE and fast spin-echo images are obtained. Medially, the flexor hallucis and flexor digitorum tendons are normal. There is mild insertional posterior tibialis tendinopathy without tear. ??There is a type I os navicularis. There is a chronic sprain of the deltoid ligament with heterotopic ossification. ??The tibial spring and spring ligaments are normal. The tarsal tunnel is normal. Laterally, there is mild tendinopathy of the peroneus brevis and longus tendons without tear. The superior peroneal retinaculum is intact. The syndesmosis and syndesmotic ligaments are intact. The anterior talofibular, calcaneofibular, and posterior talofibular ligaments are intact. Posteriorly, there is severe distal Achilles tendinopathy involving the distal 5cm of the tendon with enthesitis and heterotopic ossification at the insertion. There is retro achilles bursitis. There is mucoid degeneration vs a small partial thickness tear at the achilles tendon insertion measuring 3 x 4mm. There is severe retrocalcaneal bursitis. Intrinsically, the calcaneus is normal without evidence of a stress fracture. The sinus Tarsi is normal. There is chronic plantar fascitis. Anteriorly, the ankle extensors are normal. There is an osteochondral lesion of the posteromedial talar dome measuring 11 x 7 mm without an unstable in situ fragment. There is a physiologic amount of fluid within the ankle and posterior subtalar joints. There is a likely intraosseous ganglion in the fourth metatarsal base. There is mild talonavicular and multifocal tarsal metatarsal joint chondrosis there is heterotopic ossification at the dorsal talonavicular capsule likely representing old injury. There is soft tissue swelling about the ankle most pronounced laterally. There is a T2 hyperintense lesion likely arising from the sinus Tarsi and residing just dorsal to the talar neck measuring 6 x 11 mm which may represent a small hindfoot joint recess vs a ganglion cyst. Procedure Note Glenroy Aguillon MD - 05/19/2021 EXAMINATION: 1. MR left ankle and hindfoot without contrast HISTORY: Left ankle pain and swelling for several weeks FINDINGS: Comparison left ankle radiographs 05/05/2021 have been reviewed. MR examination of the left ankle and hindfoot is performed with a local coil. No intravenous or intra-articular contrast was administered for this examination. Sagittal short TR/TE and STIR images and transverse and coronal short TR/TE and fast spin-echo images are obtained. Medially, the flexor hallucis and flexor digitorum tendons are normal. There is mild insertional posterior tibialis tendinopathy without tear. There is a type I os navicularis. There is a chronic sprain of the deltoid ligament with heterotopic ossification. The tibial spring and spring ligaments are normal. The tarsal tunnel is normal. Laterally, there is mild tendinopathy of the peroneus brevis and longus tendons without tear. The superior peroneal retinaculum is intact. The syndesmosis and syndesmotic ligaments are intact. The anterior talofibular, calcaneofibular, and posterior talofibular ligaments are intact. Posteriorly, there is severe distal Achilles tendinopathy involving the distal 5cm of the tendon with enthesitis and heterotopic ossification at the insertion. There is retro achilles bursitis. There is mucoid degeneration vs a small partial thickness tear at the achilles tendon insertion measuring 3 x 4mm. There is severe retrocalcaneal bursitis. Intrinsically, the calcaneus is normal without evidence of a stress fracture. The sinus Tarsi is normal. There is chronic plantar fascitis. Anteriorly, the ankle extensors are normal. There is an osteochondral lesion of the posteromedial talar dome measuring 11 x 7 mm without an unstable in situ fragment. There is a physiologic amount of fluid within the ankle and posterior subtalar joints. There is a likely intraosseous ganglion in the fourth metatarsal base. There is mild talonavicular and multifocal tarsal metatarsal joint chondrosis there is heterotopic ossification at the dorsal talonavicular capsule likely representing old injury. There is soft tissue swelling about the ankle most pronounced laterally. There is a T2 hyperintense lesion likely arising from the sinus Tarsi and residing just dorsal to the talar neck measuring 6 x 11 mm which may represent a small hindfoot joint recess vs a ganglion cyst. IMPRESSION: 1. Severe insertional left Achilles tendinopathy involving the distal 5 cm of the tendon with enthesitis, heterotopic ossification, a linear area of mucoid degeneration or small intrasubstance tear measuring 3 x 4mm, and severe retrocalcaneal bursitis. 2. Small osteochondral lesion of the posteromedial talar dome. 3. Mild multifocal hindfoot chondrosis. 4. Mild peroneus longus/brevis and posterior tibialis tendinopathy without tear. Dictated by: Ruben Ryan M.D. The radiology attending physician has personally reviewed this study, and had reviewed and/or edited this written report and agrees with it. Electronically signed by: Glenroy Aguillon M.D. Ladarius GERONIMO IMG MRI PROCEDURES Final Result documented in this encounter Visit Diagnoses Diagnosis Pain in unspecified foot documented in this encounter Care Teams Heel Seat Flap Stapler Relationship Specialty Start Date End Date Janine Terry MD [address] [place] [address] PCP - General Family Medicine 03/06/19 01/19/22 Adam English DO [address] [place] [address] Probate Paralegal Gastroenterology 03/26/19 06/05/23 documented as of this encounter
--- OUTSIDE RECORDS SUMMARY | 2024-05-20 13:09 | XMS_ITS | Encounter Summary ---
Author Organization [facility] Address [address] [address] Care Team Providers Care Heading Repairer Name Role Phone Adam English DO Unavailable [phone] Bj Montaño MD Primary Care Provider [phone] Reason for Visit * Reason Comments URI Pt c/o nausea, diarr hea, vomiting, fever, dizziness, raspy voice, clogged ears, abdominal pain, GERD sym Encounter Details Date Type Department Care Team (Latest Contact Info) Description 05/12/2022 9:15 AM MICROFILM TECHNICIAN Office Visit [facility] [address] [address] Raina Darby NP [address] [place] [address] [address] [place] [address] Acute gastroenteritis (Primary Dx) Social History Tobacco Use Types Packs/Day Years Used Date Smoking Tobacco: Never Smokeless Tobacco: Never Alcohol Use Standard Drinks/Week Comments Not Currently 0 (1 standard drink = 0.6 oz pur e alcohol) Comments No Sex and Gender Information Value Date Recorded Sex Assigned at Not on file Legal Sex Female 2:22 AM MICROFILM TECHNICIAN Gender Identity Female 05/18/2019 7:17 PM MICROFILM TECHNICIAN Sexual Orientation Straight 05/18/2019 7: 17 PM MICROFILM TECHNICIAN documented as of this encounter Last Filed Vital Signs Vital Sign Reading Time Taken Comments Blood Pressure 130/76 05/12/2022 9:15 AM MICROFILM TECHNICIAN Pulse 86 05/12/2022 9:15 AM MICROFILM TECHNICIAN Temperature 37.1 ??C (98.8 ??F) 05/12/2022 9:15 AM CS T Respiratory Rate 20 05/12/2022 9:15 AM MICROFILM TECHNICIAN Oxygen Saturation 97% 05/12/2022 9:15 AM MICROFILM TECHNICIAN Inhaled Oxygen Concentration - - Weight 130.6 kg (288 lb) 05/12/2022 9:15 AM MICROFILM TECHNICIAN Height 177.8 cm (5' 10 ) 05/12/2022 9:15 AM MICROFILM TECHNICIAN Body Mass Index 41.32 05/12/2022 9:15 AM MICROFILM TECHNICIAN documented in this encounter Patient Instructions * Attachments The following attachments cannot be sent through Care Everywhere. * Gastroenteritis (Consumer Loan Officer) (Greek) documented in this encounter Ordered Prescriptions Prescription Sig Dispense Quantity Refills Last Filled Start Date End Date ondansetron (ZOFRAN) 4 mg tabletIndications:Acu te gastroenteritis Take 1 tablet (4 mg total) by mouth every 8 (eight) hours as needed for nausea or vomiting 20 tablet 05/12/2022 3 documented in this encounter Progress Notes * Raina Darby NP - 05/12/2022 9:15 AM CST Images from the original note were not included. Subjective/Objective Patient ID: Josy Fiore is a 62 y.o. female. Chief Complaint URI (Pt c/o nausea, diarrhea, vomiting, fever, dizziness, raspy voice, clogged ears, abdominal pain, GERD sym) Patient presents to convenient care complaining of nausea, diarrhea, headache, vomiting, low-grade fever, dizziness, raspy voice, clogged ears, right upper quadrant pain, with GERD symptoms. Patient states symptoms started Monday night into Monday morning around midnight, after [place] Day dinnerwith family Patient states overall she is improving. Patient has taken Mylanta, omeprazole, Tylenoland clear liquids and bland diet with improvement. Patient states she has not vomited since yesterday morning. Patient states she vomited once yesterday but it was more of like a reflux, GERD episode. Pt states she has hx of ulcer in the right upper quadrant, is where she normally has her ulcer pain. Patient denies blood or mucus in vomit or stool. Patient states low-grade fever. Monday afternoon, highest temp was a 100.5?? F. patient states she does have a appetite and has been eating bland foods without any difficulty. Drinking Sprite and water. Patient does not have a gallbladder. Review of Systems Constitutional: Positive for fatigue and fever. Negative for appetite change, chills and diaphoresis. HENT: Positive for voice change (raspy). Negative for congestion, ear discharge, ear pain, postnasal drip, rhinorrhea, sinus pressure, sinus pain, sneezing and sore throat. +ears feel clogged bilaterally Respiratory: Negative for cough, chest tightness, shortness of breath and wheezing. Cardiovascular: Negative for chest pain. Gastrointestinal: Positive for abdominal pain, diarrhea, nausea and vomiting. Negative for blood instool and constipation. Genitourinary: Negative. Musculoskeletal: Negative for myalgias, neck pain and neck stiffness. Skin: Negative for rash. Neurological: Positive for dizziness and headaches. Hematological: Negative for adenopathy. Physical Exam Vitals and nursing note reviewed. Constitutional: General: She is awake. She is not in acute distress. Appearance: Normal appearance. HENT: Head: Normocephalic and atraumatic. Right Ear: Tympanic membrane and ear canal normal. Left Ear: Tympanic membrane and ear canal normal. Nose: No congestion or rhinorrhea. Right Sinus: No maxillary sinus tenderness or frontal sinus tenderness. Left Sinus: No maxillary sinus tenderness or frontal sinus tenderness. Mouth/Throat: Lips: [place]. Mouth: Mucous membranes are moist. Tongue: Tongue does not deviate from midline. Pharynx: Uvula midline. No pharyngeal swelling, oropharyngeal exudate, posterior oropharyngeal erythema or uvula swelling. Tonsils: No tonsillar exudate or tonsillar abscesses. Eyes: General: Lids are normal. Pupils: Pupils are equal, round, and reactive to light. Cardiovascular: Rate and Rhythm: Normal rate and regular rhythm. Pulses: Normal pulses. Heart sounds: Normal heart sounds. Pulmonary: Effort: Pulmonary effort is normal. No respiratory distress. Breath sounds: Normal breath sounds. No decreased breath sounds, wheezing, rhonchi or rales. Abdominal: General: Bowel sounds are normal. Palpations: Abdomen is soft. Tenderness: There is abdominal tenderness in the right upper quadrant. There is no right CVA tenderness, left CVA tenderness, guarding or rebound. Musculoskeletal: Cervical back: Full passive range of motion without pain, normal range of motion and neck supple. Lymphadenopathy: Cervical: No cervical adenopathy. Skin: General: Skin is warm and dry. Neurological: Mental Status: She is alert and oriented to person, place, and time. Gait: Gait normal. Psychiatric: Behavior: Behavior is cooperative. Vitals: 05/12/22 0915 BP: 130/76 Pulse: 86 Resp: 20 Temp: 37.1 ??C (98.8 ??F) SpO2: 97% Weight: 130.6 kg (288 lb) Height: 177.8 cm (5' 10 ) No results found. Past Medical History: Diagnosis Date Anxiety Arthritis Right ankle and knee Cholecystitis Colorectal polyps Depression Diverticulitis GERD (gastroesophageal reflux disease) Hypertension 2 years Migraines 2000 NAFLD (nonalcoholic fatty liver disease) Ovarian cyst Rosacea Current Outpatient Medications: ALPRAZolam (XANAX) 0.25 mg tablet, Take 0.25 mg by mouth 3 (three) times a day as needed for anxiety , Disp: , Rfl: ozkcshi-qrvkzzexk-lzio tablet, Take 1 tablet by mouth nightly 1000mg/400mg/15mg every day , Disp: ,Rfl: cetirizine (ZyrTEC) 10 mg tablet, Take 10 mg by mouth as needed for allergies, Disp: , Rfl: L gasseri/B bifidum/B longum ([facility] COLON HEALTH ORAL), Take 1 tablet by mouth every morning Colon Health every day unsure med dosage , Disp: , Rfl: losartan-hydroCHLOROthiazide (HYZAAR) 50-12.5 mg per tablet, , Disp: , Rfl: psyllium husk (METAMUCIL ORAL), Take 6 Caplet by mouth every morning 6 caps am , Disp: , Rfl: soy isofla/blk cohosh/mag bark (ESTROVEN ORAL), Take by mouth Unsure med dosage every day hs, Disp:, Rfl: SUMAtriptan (IMITREX) 100 mg tablet, , Disp: , Rfl: lutein 20 mg tablet, Take 1 tablet by mouth nightly hs (Patient not taking: Reported on 12/17/2020), Disp: , Rfl: ondansetron (ZOFRAN) 4 mg tablet, Take 1 tablet (4 mg total) by mouth every 8 (eight) hours as needed for nausea or vomiting, Disp: 20 tablet, Rfl: 0 Allergies Allergen Reactions Enoxaparin Hives, Itching, Redness and Swelling Penicillins Swelling Inapsine [Droperidol] Anxiety irritability Social History Tobacco Use Smoking status: Never Smokeless tobacco: Never Substance and Sexual Activity Drug use: Never Sexual activity: Yes Partners: Male control/protection: None Alcohol Use: Not on file Past Surgical History: Procedure Laterality Date CHOLECYSTECTOMY 2013 COLECTOMY 04/18/2019 Laparoscopic sigmoid colectomy COLONOSCOPY 10/03/2018 GALLBLADDER SURGERY 2012 HYSTERECTOMY 2000 TLH, R SO LAPAROSCOPIC OVARIAN CYSTECTOMY LESIONECTOMY Right 2009 benign skin lesion removed from R anterior chest SINUS SURGERY 1985 SKIN CANCER EXCISION Right 1994 V-Y flap R yazidi for BCCa TERATOMA EXCISION Left 1995 L SO TONSILLECTOMY AND ADENOIDECTOMY 1962 TONSILLECTOMY AND ADENOIDECTOMY 1961 Assessment/Plan Diagnoses and all orders for this visit: Acute gastroenteritis (Primary) - Influenza A/B, RSV, and COVID-19 PCR Nasopharyngeal; Future - ondansetron (ZOFRAN) 4 mg tablet; Take 1 tablet (4 mg total) by mouth every 8 (eight) hours as needed for nausea or vomiting Patient Education: He make continue omeprazole per package directions. Discussed with patient that dizziness is likely due to dehydration, discussed focus on hydration, ice chips, popsicles, sips of non caffeinated beverages all throughout the day. If symptoms persist greater than 5 days, or worsen at anytime, if you begin to have abdominal pain,increased or persist dizziness, blood in stool or vomit, and/or if you run a fever over 101F seek medical attention as soon as possible. It is important to maintain hydration (drink plenty of fluids), if no urine output in 12 hours, or unable to keep any liquids down for 24 hours, go to the emergency department. Patient advised to follow-up with PCP if symptoms persist over 5 days. Disposition Treatment plan including expectations, follow up, and return precautions discussed with patient/parent, verbalizes understanding. Medication dosage, use, and potential adverse reactions discussed with patient/parent. Advised to follow up with PCP if symptoms do not resolve as expected or sooner if condition worsens. Signs/symptoms warranting ER evaluation reviewed. Patient and/or guardian was given an opportunity to ask questions, questions answered. Raina Darby NP Cosigned by Darwin Bee MD at 05/12/2022 10:47 AM MICROFILM TECHNICIAN OFILM TECHNICIAN OFILM TECHNICIAN documented in this encounter Plan of Treatment Not on file documented as of this encounter Results * Influenza A/B, RSV, and COVID-19 PCR Nasopharyngeal (05/12/2022 9:20 AM MICROFILM TECHNICIAN) COVID-19 RNA Negative Negative [facility] Influenza A RNA Negative Negative [facility] Influenza B RNA Negative Negative [facility] RSV RNA Negative Negative [facility] Comment: Interpretive data: This test is performed using the [facility] Xpert Xpress CoV-2/Flu/RSV plus assay. This is [...] revised 2021. Nasopharyngeal 05/12/2022 9: 20 AM MICROFILM TECHNICIAN 05/12/2022 2:04 PM MICROFILM TECHNICIAN Narrative [facility] - 05/12/2022 2:52 PM MICROFILM TECHNICIAN Is the Patient experiencing symptoms consistent with COVID?->Yes Date of Symptom Onset->05/09/22 Reason for testing?->Symptomatic Raina Darby NP LAB MICROBIOLOGY - GENERAL [place] [place] Final Result [facility] [address] Department [place] [address] documented in this encounter Visit Diagnoses Diagnosis Acute gastroenteritis- Primary Other and unspecified noninfectious gastroenteritis and colitis Acute gastroenteritis Other and unspecified noninfectious gastroenteritis and colitis documented in this encounter Discontinued Medications Medication Sig Discontinue Reason Start Date End Da te acetaminophen (TYLENOL) 500 mg tablet Take 1,000 mg by mouth every 6 (six) hours as needed for pain 05/12/2022 venlafaxine XR (EFFEXOR-XR) 150 mg 24 hr capsuleIndications:Anxie ty with Depression Take 150 mg by mouth nightly 05/12/2022 documented as of this encounter Additional Health Concerns Infection Onset Date Last Indicated Resolved Time COVID: Suspected 05/12/2022 05/12/2022 05/12/2022 2:53 PM MICROFILM TECHNICIAN documented as of this encounter Care Teams Heading Repairer Relationship Specialty Start Date End Date Bj Montaño MD PCP - General Family Medicine 04/15/22 02/19/24 Adam English DO Leader Writer Gastroenterology 03/26/19 06/05/23 documented as of this encounter
--- OUTSIDE RECORDS SUMMARY | 2024-05-20 13:09 | XMS_ITS | Encounter Summary ---
Author Organization [facility] Address [address] [place] [address] Care Team Providers Care Tax Services Intern Name Role Phone Adam English DO Unavailable [phone] Mellissa Rodríguez Primary Care Provider Encounter Details Date Type Department Care Team (Late st Contact Info) Description 01/21/2022 2:40 PM CDT Lab [address] [address] Abnormal levels of other serum enzymes Social History Tobacco Use Types Packs/Day Years Used Date Smoking Tobacco: Never Smokeless Tobacco: Never Alcohol Use Standard Drinks/Week Comments Not Currently 0 (1 standard drink = 0.6 oz pur e alcohol) Comments No Sex and Gender Information Value Date Recorded Sex Assigned at Not on file Legal Sex Female 2:22 AM DYE CAN OPERATOR Gender Identity Female 05/18/2019 7:17 PM DYE CAN OPERATOR Sexual Orientation Straight 05/18/2019 7: 17 PM DYE CAN OPERATOR documented as of this encounter Plan of Treatment Not on file documented as of this encounter Procedures Procedure Name Priority Date/Time Associated Diagnosis Comments HEPATITIS PANEL, ACUTE Routine 01/21/2022 10:19 AM CDT Abnormal levels of other serum enzymes documented in this encounter Results * Hepatitis panel, acute (01/21/2022 10:19 AM CDT) Hep A IgM Nonreactive Nonreactive [facility] Comment: Interpretive Data: If Hep A IgM Ab is reported as Equivocal, a new sample should be drawn in two weeks for testing. Current interpretive data was last revised on 19. Hep B core IgM Nonreactive Nonreactive [facility] Comment: Interpretive Data If HepB Core IgM Ab is reported as Equivocal, a new sample should be drawn in two weeks for testing. Current interpretive data was last revised on 19. Hep C Ab Nonreactive Nonreactive [facility] Comment: Interpretive Data Nonreactive: Antibodies to HCV [...] last revised on 2019. HepBsAg Nonreactive Nonreactive [facility] Blood (Blood, Venous) 01/21/2022 10:19 AM CDT 01/21/2022 2:43 PM CDT Narrative [facility] - 01/21/2022 4:00 PM CDT Fax results to Mellissa Neff at [phone] Mellissa GERONIMO LAB MICROBIOLOGY - [facility] ORDERABLES Final Result [facility] [address] [facility] Department of Laboratories [place], [place] [id number] documented in this encounter Visit Diagnoses Diagnosis Abnormal levels of other serum enzymes documented in this encounter Care Teams Tax Services Intern Relationship Specialty Start Date End Date Mellissa Rodríguez PA [address] [place] [address] PCP - General Physician Teaching Specialists 01/21/22 04/14/22 Adam English DO Insurance Loss Control Surveyor Gastroenterology 03/26/19 06/05/23 documented as of this encounter
--- OUTSIDE RECORDS SUMMARY | 2024-05-20 13:09 | XMS_ITS | Encounter Summary ---
Author Organization [facility] Address [address] [place] [address] Phone Care Team Providers Care Mechanics Handyman Name Role Phone Janine Terry MD Primary Care Provider [phone] Adam English DO Unavailable Reason for Visit * Reason Comments Follow-up Encounter Details Date Type Department Care Team (Late st Contact Info) Description 09/03/2021 8:15 AM CDT Office Visit [facility] [address] [place] [address] Miguel Bryson, GEORGETTE [address] [address] [facility] [address] [place], [place] [id number] Achilles tendinitis of left lower extremity (Primary Dx) Social History Tobacco Use Types Packs/Day Years Used Date Smoking Tobacco: Never Smokeless Tobacco: Never Alcohol Use Standard Drinks/Week Comments Not Currently 0 (1 standard drink = 0.6 oz pur e alcohol) Comments No Sex and Gender Information Value Date Recorded Sex Assigned at Not on file Legal Sex Female 2:22 AM AUSTRALIAN RULES FOOTBALLER Gender Identity Female 05/18/2019 7:17 PM AUSTRALIAN RULES FOOTBALLER Sexual Orientation Straight 05/18/2019 7: 17 PM AUSTRALIAN RULES FOOTBALLER documented as of this encounter Progress Notes * Miguel Bryson NP - 09/03/2021 8:15 AM CDT RETURN PATIENT VISIT INTERIM HISTORY The patient is here for follow-up of her left ankle. She has Achilles tendinopathy and bursitis. She is doing very well. She has finished physical therapy. On Monday she did note a little bit of stinging and burning. She has also noticed a little bit of posterior lateral ankle swelling. She thinksit is because she had a long day at work when she was sitting and did not get up to move around much. PHYSICAL EXAMINATION On physical exam she is alert oriented x3. Skin exam reveals no rashes, lesions or ulcers. Sensation is intact to light touch. She has minimal tenderness at the insertion of the Achilles tendon. She does have some posterior lateral ankle swelling. She is not tender over the swelling. No redness or warmth. She has good ankle range of motion. She can get to neutral. She has intact dorsiflexion, plantar flexion, inversion and eversion. REVIEW OF X-RAYS/STUDIES MRI of the left [...] today. She is doing well. She will continue with exercises at home. She has some compression socks that she can use during the day when she is going to besitting for long periods of time. She can ice as needed. We will leave follow-up open-ended. She isagreeable to plan. All of her questions were answered today. FOLLOW UP As needed I was in collaboration with Dr. Subramanian today. Miguel Bryson, RN,BSN, MSN, ACCESS REPRESENTATIVE, MANAGER PIPELINE-C, in collaborative practice with Dr. Nader Diaz and Dr. Jordon Subramanian Nurse Practitioner, Foot and Ankle Service [facility]. This is ANNA Dickey dictating using [employer] Program. Spray Machine Loader variances may occur. Cosigned by Jordon Subramanian MD at 09/06/2021 1:38 PM CDT documented in this encounter Plan of Treatment Not on file documented as of this encounter Visit Diagnoses Diagnosis Achilles tendinitis of left lower extremity- Primary documented in this encounter Care Teams Mechanics Handyman Relationship Specialty Start Date End Date Janine Terry MD [address] [place] [address] PCP - General Family Medicine 03/06/19 01/19/22 Adam English DO [address] [address] Family Dentist Gastroenterology 03/26/19 06/05/23 documented as of this encounter
--- OUTSIDE RECORDS SUMMARY | 2024-05-20 13:09 | XMS_ITS | Encounter Summary ---
Author Organization [facility] Address [address] [facility] [address] [place] [address] Care Team Providers Care Clinical Rehab Specialist Name Role Phone Janine Terry MD Primary Care Provider [phone] Adam English DO Unavailable [phone] Encounter Details Date Type Department Care Team (Late st Contact Info) Description 01/12/2022 9:15 AM CDT Lab [facility] Outpatient Lab at [address] [address] Diverticulitis; Achilles tendinitis of left lower extremity Social History Tobacco Use Types Packs/Day Years Used Date Smoking Tobacco: Never Smokeless Tobacco: Never Alcohol Use Standard Drinks/Week Comments Not Currently 0 (1 standard drink = 0.6 oz pur e alcohol) Comments No Sex and Gender Information Value Date Recorded Sex Assigned at Not on file Legal Sex Female 2:22 AM DRAW FRAME RUNNER Gender Identity Female 05/18/2019 7:17 PM DRAW FRAME RUNNER Sexual Orientation Straight 05/18/2019 7: 17 PM DRAW FRAME RUNNER documented as of this encounter Plan of Treatment Not on file documented as of this encounter Visit Diagnoses Diagnosis Diverticulitis Diverticulitis of colon (without mention of hemorrhage) Achilles tendinitis of left lower extremity documented in this encounter Care Teams Clinical Rehab Specialist Relationship Specialty Start Date End Date Janine Terry MD [address] [place] [address] PCP - General Family Medicine 03/06/19 01/19/22 Adam English DO [address] [place] [address] Assessor Gastroenterology 03/26/19 06/05/23 documented as of this encounter
--- OUTSIDE RECORDS SUMMARY | 2024-05-20 13:09 | XMS_ITS | Encounter Summary ---
Author Organization [facility] Healthcare Address [address] [place] [address] Care Team Providers Care Die Filer Name Role Phone Amador Adam Erik DO Unavailable [phone] Bj Montaño MD Primary Care Provider [phone] Reason for Referral * Diagnostic Imaging (Routine) - Closed Specialty Diagnoses / Procedures Referred By Contetta t Referred To Contact Diagnoses Screening mammogram, encounter for Procedures Screening Mammogram Bilateral W Lalo Screening Mammogram, Self [facility] Referral ID Status Reason Start Date Expiration Date Visits Re quested Visits Authorized [id number] Closed 03/18/2022 04/17/2023 1 1 VERY TABLE FEEDER Reason for Visit * Diagnostic Imaging (Routine) - Closed Specialty Diagnoses / Procedures Referred By Contetta t Referred To Contact Diagnoses Screening mammogram, encounter for Procedures Screening Mammogram Bilateral W Lalo Screening Mammogram, Self [facility] Referral ID Status Reason Start Date Expiration Date Visits Re quested Visits Authorized [id number] Closed 03/18/2022 04/17/2023 1 1 Encounter Details Date Type Department Care Team (Latest Contact Info) Description 04/15/2022 2:05 PM DELIVERY TABLE FEEDER - 04/15/2022 11:59 PM DELIVERY TABLE FEEDER Hospital Encounter [facility] [address] [place] [id number] Screening mammogram, encounter for Discharge Disposition: Discharge [...] on file Legal Sex Female 2:22 AM DELIVERY TABLE FEEDER Gender Identity Female 05/18/2019 7:17 PM DELIVERY TABLE FEEDER Sexual Orientation Straight 05/18/2019 7: 17 PM DELIVERY TABLE FEEDER documented as of this encounter Medications at [...] LALO Schedule Routine, Read Routine (OP Routine) 04/15/2022 2:31 PM DELIVERY TABLE FEEDER Screening mammogram, encounter for documented in this encounter Results * Screening Mammogram Bilateral W Lalo (04/15/2022 2:31 PM DELIVERY TABLE FEEDER) Anatomical Region Laterality Modality Breast Bilateral Mammography Narrative 04/19/2022 1:14 PM DELIVERY TABLE FEEDER Mammogram Technique: Bilateral Digital Breast Tomosynthesis, Bilateral C-view 2D Screening mammogram. ??Views obtained: ??bilateral craniocaudal and bilateral mediolateral oblique. ??Computer Aided Detection was performed. Mammogram Findings: The present examination has been compared to prior imaging studies performed at [facility]. [facility] on 01/27/2017, and at [facility] on 02/18/2020 and 03/31/2021. There are scattered areas of fibroglandular density. There is no suspicious abnormality in either breast. Impression: There is no mammographic evidence of malignancy. Annual screening mammography is recommended. OVERALL FINAL ASSESSMENT: BI-RADS CATEGORY 1: ??Negative. Procedure Note Tawana Chester MD - 04/19/2022 Mammogram Technique: Bilateral Digital Breast Tomosynthesis, Bilateral C-view 2D Screening mammogram. Views obtained: bilateral craniocaudal and bilateral mediolateral oblique. Computer Aided Detection was performed. Mammogram Findings: The present examination has been compared to prior imaging studies performed at [facility]. [facility] on 01/27/2017, andat [facility] on 02/18/2020 and 03/31/2021. There are scattered areas of fibroglandular density. There is no suspicious abnormality in either breast. Impression: There is no mammographic evidence of malignancy. Annual screening mammography is recommended. OVERALL FINAL ASSESSMENT: BI-RADS CATEGORY 1: Negative. us Self Screening Mammogram IMG MAMMO PROCEDURES Fi nal Result documented in this encounter Visit Diagnoses Diagnosis Screening mammogram, encounter for documented in this encounter Care Teams Die Filer Relationship Specialty Start Date End Date Bj Montaño MD PCP - General Family Medicine 04/15/22 02/19/24 Adam English DO [facility] Gastroenterology 03/26/19 06/05/23 documented as of this encounter
--- OUTSIDE RECORDS SUMMARY | 2024-05-20 13:09 | XMS_ITS | Encounter Summary ---
Author Organization [facility] Address [address] [place] [address] Phone Care Team Providers Care Casting Wheel Operator Name Role Phone Janine Terry MD Primary Care Provider [phone] Adam English DO Unavailable [phone] Reason for Visit * Reason Comments Follow-up Encounter Details Date Type Department Care Team (Late st Contact Info) Description 07/05/2021 2:45 PM SEROLOGIST Office Visit [facility] Orthopaedic Surgery [facility] Medical Office Building [address] [place] [address] Miguel Bryson, [place] [address] [place] [id number] Achilles tendinitis of left lower extremity (Primary Dx) Social History Tobacco Use Types Packs/Day Years Used Date Smoking Tobacco: Never Smokeless Tobacco: Never Alcohol Use Standard Drinks/Week Comments Not Currently 0 (1 standard drink = 0.6 oz pur e alcohol) Comments No Sex and Gender Information Value Date Recorded Sex Assigned at Not on file Legal Sex Female 2:22 AM SEROLOGIST Gender Identity Female 05/18/2019 7:17 PM SEROLOGIST Sexual Orientation Straight 05/18/2019 7: 17 PM SEROLOGIST documented as of this encounter Progress Notes * Miguel Bryson NP - 07/05/2021 2:45 PM CST RETURN PATIENT VISIT INTERIM HISTORY The patient is here for follow-up of her left ankle. She has Achilles tendinopathy and bursitis. She also has an osteochondral lesion. She was treated in a cast for 2 weeks and then boot for 4 weeks.She is doing better. She does occasionally note some stinging and pulling to the back of the heel. She did get molded for her orthotics last Monday. PHYSICAL EXAMINATION On physical exam she is alert oriented x3. Skin exam reveals no rashes, lesions or ulcers. Sensation is intact light touch. She still has some tenderness at the insertion of the Achilles tendon moretowards the lateral aspect of the insertion. Minimal swelling. No redness or bruising. No warmth. REVIEW OF X-RAYS/STUDIES MRI of the left [...] about the ankle most pronounced laterally.?? 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 She is continuing to do well. I would like for her to start boot weaning. Boot weaning instructions were provided. She will start physical therapy.She will work on getting her orthotics. She can still ice. She should avoid any shoes that rub at the back of the heel. I will check her back in 4 weeks. She is agreeable to plan. All of her questions were answered today. FOLLOW UP Four weeks after physical therapy I was in collaboration with Dr. Subramanian today. Miguel Bryson, RN,BSN, MSN, UROLOGIST PHYSICIAN, FAMILY SUPPORT WORKER-C, in collaborative practice with Dr. Nader Diaz and Dr. Jordon Subramanian Nurse Practitioner, Foot and Ankle Service [facility]. This is ANNA Dickey dictating using [employer] Software Program. Breaker Machine Operator variances may occur. LOGIST documented in this encounter Plan of Treatment Not on file documented as of this encounter Visit Diagnoses Diagnosis Achilles tendinitis of left lower extremity- Primary documented in this encounter Care Teams Casting Wheel Operator Relationship Specialty Start Date End Date Janine Terry MD [address] [place] [address] PCP - General Family Medicine 03/06/19 01/19/22 Adam English DO [address] [place] [address] Building Consultant Gastroenterology 03/26/19 06/05/23 documented as of this encounter
--- OUTSIDE RECORDS SUMMARY | 2024-05-20 13:09 | XMS_ITS | Encounter Summary ---
Author Organization [facility] Address [address] [place] [address] Care Team Providers Care Tank Cooper Name Role Phone Janine Terry MD Primary Care Provider Adam English DO Unavailable [phone] Reason for Visit * Reason Onset Date Comments xr report 05/06/2021 Encounter Details Date Type Department Care Team (Late st Contact Info) Description 05/06/[address] [facility] Outpatient Center [address] [address] Yanelis Mccauley, GEORGETTE [address] [place] [address] xr report Social History Tobacco Use Types Packs/Day Years Used Date Smoking Tobacco: Never Smokeless Tobacco: Never Alcohol Use Standard Drinks/Week Comments Not Currently 0 (1 standard drink = 0.6 oz pur e alcohol) Comments No Sex and Gender Information Value Date Recorded Sex Assigned at Not on file Legal Sex Female 2:22 AM BILLBOARD ERECTOR HELPER Gender Identity Female 05/18/2019 7:17 PM BILLBOARD ERECTOR HELPER Sexual Orientation Straight 05/18/2019 7: 17 PM BILLBOARD ERECTOR HELPER documented as of this encounter Miscellaneous Notes * Telephone Encounter - Shawn Winston - 05/06/2021 8:55 AM CST Patient called and requested the xr report from her CC visit last night. She would like it faxed toDr. Terry at [phone]. Report was printed and faxed. BOARD ERECTOR HELPER documented in this encounter Plan of Treatment Not on file documented as of this encounter Visit Diagnoses Not on filedocumented in this encounter Care Teams Tank Cooper Relationship Specialty Start Date End Date Janine Terry MD [address] [place] [address] PCP - General Family Medicine 03/06/19 01/19/22 Adam English DO [address] [place] [address] [facility]lower Gastroenterology 03/26/19 06/05/23 documented as of this encounter
--- OUTSIDE RECORDS SUMMARY | 2024-05-20 13:09 | XMS_ITS | Encounter Summary ---
Author Organization [facility] Address [address] [place] [address] Phone Care Team Providers Care Sales Service Route Manager Name Role Phone Janine Terry MD Primary Care Provider [phone] Adam English DO Unavailable [phone] Reason for Visit * Reason Comments Follow-up Encounter Details Date Type Department Care Team (Late st Contact Info) Description 06/07/2021 2:15 PM CONCRETE HANDLER Office Visit [facility] Orthopaedic Surgery [facility] Medical Office Building [address] [place] [address] Miguel Bryson, [place] [address] [place] [phone] Achilles tendinitis of left lower extremity (Primary Dx) Social History Tobacco Use Types Packs/Day Years Used Date Smoking Tobacco: Never Smokeless Tobacco: Never Alcohol Use Standard Drinks/Week Comments Not Currently 0 (1 standard drink = 0.6 oz pur e alcohol) Comments No Sex and Gender Information Value Date Recorded Sex Assigned at Not on file Legal Sex Female 2:22 AM CONCRETE HANDLER Gender Identity Female 05/18/2019 7:17 PM CONCRETE HANDLER Sexual Orientation Straight 05/18/2019 7: 17 PM CONCRETE HANDLER documented as of this encounter Progress Notes * Miguel Bryson NP - 06/07/2021 2:15 PM CST RETURN PATIENT VISIT INTERIM HISTORY The patient is here for follow-up of her left ankle. She has Achilles tendinopathy and bursitis. She also has an osteochondral lesion. She has been in a cast for 2 weeks. She has found the cast helpful. Her swelling continues to resolve in the cast gets loose. She has noted some increased pain in her Achilles when the cast gets loose. She did mention she felt a pop towards the back of the Achilles when she was resting on the couch. PHYSICAL EXAMINATION On physical exam the cast was removed in the office today. Skin exam reveals no rashes, lesions or ulcers. Sensation is intact to light touch. She has intact dorsiflexion, plantar flexion, inversion and eversion. Ankle strength is 5/5. She still has tenderness to palpation at the insertion of the Achilles tendon. There was swelling. No redness or bruising. No pain to squeeze her calf. No redness. REVIEW OF X-RAYS/STUDIES ??MRI of the left ankle hindfoot dated May [...] distal Achilles tendinopathy involving the distal 5 cmof the tendon with enthesitis??and heterotopic ossification at [...] fourth metatarsal base. ??There is soft tissue swe lling about the ankle most pronounced laterally.?? 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 She is not having calf pain. She still has tenderness at the insertion of the Achilles tendon. We discussed a walking boot. She is going to try theboot. She can be weight-bearing as tolerated. She can take the boot off to sleep, take a bath or shower and do [id number] exercises. I want her to ice the affected area 1 to 2 times a day for 10-15 minutes at a time. She is on meloxicam. If she finds the boot is not giving her good relief she can call we can put her back in a cast. I will check her back in about 2 weeks. She is agreeable to plan. All her questions were answered today. FOLLOW UP Two weeks I was in collaboration with Dr. Subramanian today. Miguel Bryson RN,BSN, MSN, ELECTRO MECHANICAL TECHNICIAN, SPECIAL NEEDS TEACHER-C, in collaborative practice with Dr. Nader Diaz and Dr. Jordon Subramanian Nurse Practitioner, Foot and Ankle Service [facility]. This is ANNA Dickey dictating using [employer] Software Program. Junior Underwriter variances may occur. RETE HANDLER * Gianni Mathew MLT - 06/07/2021 2:15 PM CSTAssociated Order(s): Ortho Casting/Splinting Documentation Ortho Casting/Splinting Documentation Date/Time: 06/07/2021 4:01 PM Performed by: Gianni Mathew MLT Authorized by: Miguel Bryson NP Sensation: Normal Skin Condition: Clean, dry, and intact Cast Removed: Yes Location: Foot Foot: L foot Cast type: Short leg weightbearing cast Capillary Refill: Normal Patient tolerance of procedure: Tolerated well, no immediate complications Patient was placed in a tall maxtrax boot. RETE HANDLER documented in this encounter Plan of Treatment Not on file documented as of this encounter Procedures Procedure Name Priority Date/Time Associated Diagnosis Comments ORTHO CASTING/SPLINTING Routine 06/07/2021 4:01 PM CONCRETE HANDLER Achilles tendinitis of left lower extremity documented in this encounter Results * Ortho Casting/Splinting Documentation (06/07/2021 4:01 PM CONCRETE HANDLER) Narrative Gianni Mathew MLT - 06/07/2021 4:01 PM CONCRETE HANDLER Gianni Mathew MLT ? 06/07/2021 ??4:36 PM Ortho Casting/Splinting Documentation Date/Time: 06/07/2021 4:01 PM Performed by: Gianni Mathew MLT Authorized by: Miguel Bryson NP Sensation: ??Normal Skin Condition: ??Clean, dry, and intact Cast Removed: Yes ?? Location: ??Foot Foot: ??L foot Cast type: ??Short leg weightbearing cast Capillary Refill: ??Normal Patient tolerance of procedure: ??Tolerated well, no immediate complications Patient was placed in a tall maxtrax boot. Miguel Bryson SOAKER IN CLINIC/BEDSIDE ORDERABL ES Final Result documented in this encounter Visit Diagnoses Diagnosis Achilles tendinitis of left lower extremity- Primary documented in this encounter Care Teams Sales Service Route Manager Relationship Specialty Start Date End Date Janine Terry MD [address] [place] [address] PCP - General Family Medicine 03/06/19 01/19/22 Adam English DO [address] [place] [address] Index Clerk Gastroenterology 03/26/19 06/05/23 documented as of this encounter
--- OUTSIDE RECORDS SUMMARY | 2024-05-20 13:09 | XMS_ITS | Encounter Summary ---
Author Organization [facility] Address [address] [place] [address] Care Team Providers Care Tender Coordinator Name Role Phone Janine Terry MD Primary Care Provider [phone] Adam English DO Unavailable [phone] Reason for Visit * Diagnostic Imaging (Routine) - Closed Specialty Diagnoses / Procedures Referred By Sisi de león Referred To Contact Diagnoses Acute left ankle pain Procedures XR Ankle Left 3+ Vw Yanelis Mccauley NP Phone: tel: fax: [facility] Referral ID Status Reason Start Date Expiration Date Visits Re quested Visits Authorized [id number] Closed 05/05/2021 06/04/2022 1 1 Encounter Details Date Type Department Care Team (Late st Contact Info) Description 05/05/2021 10:25 AM OPTICIAN APPRENTICE DISPENSING Ancillary Procedure [facility] Imaging at [address] [address] Social History Tobacco Use Types Packs/Day Years Used Date Smoking Tobacco: Never Smokeless Tobacco: Never Alcohol Use Standard Drinks/Week Comments Not Currently 0 (1 standard drink = 0.6 oz pur e alcohol) Comments No Sex and Gender Information Value Date Recorded Sex Assigned at Not on file Legal Sex Female 2:22 AM OPTICIAN APPRENTICE DISPENSING Gender Identity Female 05/18/2019 7:17 PM OPTICIAN APPRENTICE DISPENSING Sexual Orientation Straight 05/18/2019 7: 17 PM OPTICIAN APPRENTICE DISPENSING documented as of this encounter Plan of Treatment Not on file documented as of this encounter Procedures Procedure Name Priority Date/Time Associated Diagnosis Comments XR ANKLE LEFT 3 OR MORE VIEWS Schedule CHUCKIE, Read CHUCKIE (Appt Today, Awaiting Results) 05/05/2021 10:43 AM OPTICIAN APPRENTICE DISPENSING Acute left ankle pain documented in this encounter Results * XR Ankle Left 3+ Vw (05/05/2021 10:43 AM OPTICIAN APPRENTICE DISPENSING) Anatomical Region Laterality Modality Lower Extremities, Ankle Left Digital Radiography 05/05/2021 6:21 PM OPTICIAN APPRENTICE DISPENSING Narrative 05/05/2021 6:25 PM OPTICIAN APPRENTICE DISPENSING EXAM DESCRIPTION: ?XR ANKLE LEFT 3 OR [...] 6:25 PM - Electronically signed by ??Javier Nguyenbrendan RIVERO D: ??05/05/2021 6:25 PM T: Report ID: [id number] Reading Location: ??[id number] Procedure Note Javier Cedillo MD - 05/05/2021 [...] signed by Javier RIVERO T: Report ID: [id number] Reading Location: [id number] Yanelis Mccauley BUDDER IMG XR PROCEDURES Final Result documented in this encounter Visit Diagnoses Not on filedocumented in this encounter Care Teams Tender Coordinator Relationship Specialty Start Date End Date Janine Terry MD [address] [place] [address] PCP - General Family Medicine 03/06/19 01/19/22 Adam English DO [address] [place] [address] Adult Neuropsychologist Gastroenterology 03/26/19 06/05/23 documented as of this encounter
--- OUTSIDE RECORDS SUMMARY | 2024-05-20 13:09 | XMS_ITS | Encounter Summary ---
Author Organization [facility] Healthcare Address [address] [place] [address] Care Team Providers Care Brake Operator Helper Name Role Phone Janine Terry MD Primary Care Provider [phone] Adam English DO Unavailable [phone] Encounter Details Date Type Department Care Team (Late st Contact Info) Description 12/08/2021 6:10 PM CDT Lab [address] [address] Pain in joint, multiple sites Social History Tobacco Use Types Packs/Day Years Used Date Smoking Tobacco: Never Smokeless Tobacco: Never Alcohol Use Standard Drinks/Week Comments Not Currently 0 (1 standard drink = 0.6 oz pur e alcohol) Comments No Sex and Gender Information Value Date Recorded Sex Assigned at Not on file Legal Sex Female 2:22 AM PAYROLL OFFICER Gender Identity Female 05/18/2019 7:17 PM PAYROLL OFFICER Sexual Orientation Straight 05/18/2019 7: 17 PM PAYROLL OFFICER documented as of this encounter Plan of Treatment Not on file documented as of this encounter Procedures Procedure Name Priority Date/Time Associated Diagnosis Comments МАРИНА QUALITATIVE WITH REFLEX TO МАРИНА QUANTITATIVE Routine 12/08/2021 1:17 PM CDT Pain in joint, multiple sites EGFR Routine 12/08/2021 1:17 PM CDT Pain in joint, multiple sites ERYTHROCYTE SEDIMENTATION RATE Routine 12/08/2021 1:17 PM CDT Pain in joint, multiple sites RHEUMATOID FACTOR Routine 12/08/2021 1:1 7 PM CDT Pain in joint, multiple sites CRP (ACUTE PHASE) Routine 12/08/2021 1:1 7 PM CDT Pain in joint, multiple sites COMPREHENSIVE METABOLIC PANEL Routine 12/08/2021 1:17 PM CDT Pain in joint, multiple sites documented in this encounter Results * eGFR (12/08/2021 1:17 PM CDT) [facility] eGFR 82 mL/min/1. 73 m2 BRITTANY RIVERA Comment: Interpretive [...] of Race in Diagnosing Kidney Disease, JASN 202). The CKD-EPI equation should not be used for patients with unstable renal function and has not been validated in children and those over 70. Current interpretive data was last reviewed 2021. Blood 12/08/2021 1:17 PM CDT 12/08/2021 6:56 PM CDT Mellissa GERONIMO LAB BLOOD ORDERABLES Fi nal Result Performing Organization Address City/State/[facility] de Phone Number BRITTANY RIVERA [address] Department [place] [address] * Rheumatoid factor (12/08/2021 1:17 PM CDT) [facility] Rheumatoid factor, quant <10 <=15 IUnits/mL [facility] Blood (Blood, Venous) 12/08/2021 1:17 PM CDT 12/08/2021 6:33 PM CDT Narrative [facility] - 12/08/2021 7:23 PM CDT FAX RESULTS TO [phone] NICHOLSON Mellissa GERONIMO LAB BLOOD ORDERABLES nal Result Performing Organization Address [facility] de Phone Number BRITTANY RIVERA [address] Department [place] [address] * (ABNORMAL) Comprehensive metabolic panel (12/08/2021 1:17 PM CDT) [facility] Sodium 139 135 - 145 mmol/L [facility] Potassium, pl 4.2 3.3 - 4.9 mmol/L [facility] Chloride 103 97 - 110 mmol/L [facility] CO2 27 22 - 32 mmol/L [facility] Anion gap 9 2 - 15 mmol/L [facility] BUN 14 8 - 25 mg/dL [facility] Creatinine 0.81 0.60 - 1.10 mg/dL [facility] Glucose 129 70 - 199 mg/dL [facility] [...] classification and Diagnosis of Diabetes Diabetes Care 2017;40 (Suppl. 1):S11. Current interpretive data was last revised 2017. Calcium 9.4 8.5 - 10.3 mg/dL [facility] Bilirubin, total 0.5 0.1 - 1.2 mg/dL [facility] Protein, pl 7.3 6.5 - 8.5 g/dL [facility] Albumin 4.4 3.5 - 5.0 g/dL [facility] Alk phos 44 40 - 130 Units/L [facility] ALT 48(H) 7 - 45 Units/L [facility] AST 53(H) 10 - 45 Units/L [facility] Blood (Blood, Venous) 12/08/2021 1:17 PM CDT 12/08/2021 6:33 PM CDT Narrative [facility] - 12/08/2021 7:20 PM CDT FAX RESULTS TO [phone]. HALIEY Mellissa GERONIMO LAB BLOOD ORDERABLES Fi nal Result Performing Organization Address [facility] [[email or web address]] Co de Phone Number [facility] [address] [place] [address] * CRP (acute phase) (12/08/2021 1:17 PM CDT) CRP <3.0 <=10.0 mg/L [facility] Blood (Blood, Venous) 12/08/2021 1:17 PM CDT 12/08/2021 6:33 PM CDT Narrative [facility] - 12/08/2021 7:20 PM CDT FAX RESULTS TO [phone]. HALIEY Mellissa GERONIMO LAB BLOOD ORDERABLES Fi nal Result Performing Organization Address [facility] [[email or web address]] Co de Phone Number [facility] [address] [place] [place] [address] * МАРИНА qualitative with reflex to МАРИНА Quantitative (12/08/2021 1:17 PM CDT) МАРИНА Negative Negative [facility] Comment: Interpretive Data Normal range for МАРИНА Qualitative Antibody = Negative. 1. МАРИНА is performed using indirect immunofluorescence against HEp-2 ?? cells 2. МАРИНА titers are performed on all positive qualitative results. 3. A significantly positive МАРИНА result is defined as a positive nuclear ?? fluorescence at a titer of 1:80 or greater. 4. 15% of normal people above age 65 have significantly positive ?? МАРИНА results. ??5% or less of normal people age 65 or under have ?? significantly positive МАРИНА results. Current interpretive data was last revised on 20. Blood 12/08/2021 1:17 PM CDT 12/08/2021 6:33 PM CDT Narrative [facility] - 12/10/2021 10:12 AM CDT FAX RESULTS TO [phone] NICHOLSON Mellissa GERONIMO LAB BLOOD ORDERABLES Fi nal Result Performing Organization Address City/[facility] [[email or web address]] Co de Phone Number [facility] [address] [place] [address] * Erythrocyte sedimentation rate (12/08/2021 1:17 PM CDT) Pathologist [facility] Erythrocyte sedimentation rate 10 1 - 30 mm/hr [facility] Blood (Blood, Venous) 12/08/2021 1:17 PM CDT 12/08/2021 6:33 PM CDT Narrative [facility] - 12/08/2021 8:47 PM CDT FAX RESULTS TO [phone] NICHOLSON Mellissa GERONIMO LAB BLOOD ORDERABLES Fi nal Result Performing Organization Address [facility] [[email or web address]] Co de Phone Number BRITTANY [address] [place] [address] documented in this encounter Visit Diagnoses Diagnosis Pain in joint, multiple sites documented in this encounter Care Teams Brake Operator Helper Relationship Specialty Start Date End Date Janine Terry MD [address] [place] [address] PCP - General Family Medicine 03/06/19 01/19/22 Adam English DO [address] [place] [address] Accounting Tutor Gastroenterology 03/26/19 06/05/23 documented as of this encounter
--- OUTSIDE RECORDS SUMMARY | 2024-05-20 13:09 | XMS_ITS | Encounter Summary ---
Author Organization [facility] Healthcare Address [address] [place] [address] Care Team Providers Care Band Salvager Name Role Phone Adam English DO Unavailable [phone] Bj Montaño MD Primary Care Provider [phone] Encounter Details Date Type Department Care Team (Late st Contact Info) Description 06/17/2022 2:55 PM FORESTRY ENGINEER Lab [facility] Advanced Medicine [facility] Advanced Medicine ([facility]) [address] [place] [phone] Social History Tobacco Use Types Packs/Day Years Used Date Smoking Tobacco: Never Smokeless Tobacco: Never Alcohol Use Standard Drinks/Week Comments Not Currently 0 (1 standard drink = 0.6 oz pur e alcohol) Comments No Sex and Gender Information Value Date Recorded Sex Assigned at Not on file Legal Sex Female 2:22 AM FORESTRY ENGINEER Gender Identity Female 05/18/2019 7:17 PM FORESTRY ENGINEER Sexual Orientation Straight 05/18/2019 7: 17 PM FORESTRY ENGINEER documented as of this encounter Plan of Treatment Not on file documented as of this encounter Procedures Procedure Name Priority Date/Time Associated Diagnosis Comments URINALYSIS AND REFLEX TO MICROSCOPIC AND CULTURE Routine 06/17/2022 3:16 PM FORESTRY ENGINEER URINALYSIS, MICROSCOPIC ONLY Routine 06/17/2022 3:16 PM FORESTRY ENGINEER URINE CULTURE Routine 06/17/2022 3:16 PM FORESTRY ENGINEER documented in this encounter Results * Urine culture Urine (06/17/2022 3:16 PM FORESTRY ENGINEER) Report Final Report: Less than 100,000 colonies/mL (clinically insignificant growth based on current clinical standards) [facility] Organism (CLINICALLY INSIGNIFICANT GROWTH [facility] Urine 06/17/2022 3:16 PM FORESTRY ENGINEER 06/17/2022 8:43 PM FORESTRY ENGINEER Narrative [facility] - 06/18/2022 9:59 PM FORESTRY ENGINEER Urine culture reflexed based upon urinalysis results. Testing performed by [facility] ([phone]) us Bj Montaño MD LAB MICROBIOLOGY - GENERAL ORD ERABLES Final Result Performing Organization Address [facility] Co de Phone Number [facility] Department [place] [address] * (ABNORMAL) Urinalysis, microscopic only (06/17/2022 3:16 PM FORESTRY ENGINEER) WBC, ur 11-20(A) 0 - 5 /HPF [facility] RBC, ur 0-2 0 - 2 /HPF [facility] Epithelial cells, squamous, ur 1-5 0 - 5 /HPF [facility] Bacteria, ur 2+(A) [facility] Mucous, ur Present(A) [facility]J Culture Reflex Comment Reflex to urine culture will be performed. [facility] Urine 06/17/2022 3:16 PM FORESTRY ENGINEER 06/17/2022 4:33 PM FORESTRY ENGINEER us Bj Montaño MD LAB URINE ORDERABLES Final Res ult Performing Organization Address City/[facility]/ZIP Co de Phone Number [facility] [place] [employer] [place] [address] * (ABNORMAL) Urinalysis reflex to microscopic and culture Urine (06/17/2022 3:16 PM FORESTRY ENGINEER) Color, ur Straw Yellow [facility] Clarity, ur Clear Clear [facility] Specific gravity, ur 1.018 1.003 - 1.030 [facility] pH, urine 5.5 [facility] Protein, ur ql Trace Negative [facility] Glucose, ur ql Negative Negative [facility] Ketones, ur Negative Negative [facility] Bilirubin, ur Negative Negative [facility] Blood, ur Negative Negative [facility] Urobilinogen, ur <2.0 <2.0 mg/dL [facility] Nitrite, ur Negative Negative [facility] Leukocyte esterase, ur Trace(A) Negative [facility] Urine 06/17/2022 3:16 PM FORESTRY ENGINEER 06/17/2022 4:33 PM FORESTRY ENGINEER Narrative [facility] - 06/17/2022 4:50 PM FORESTRY ENGINEER ?? Urine pH is affected by diet, medications, systemic acid-base disturbances, and renal tubular function. ??pH may affect urinary stone formation. ??For example, urine pH below 6.0 may help reduce the tendency for calcium phosphate stones and pH greater than 6.0 may reduce the tendency for uric acid stone formation. Source: [email or web address]. Last revised 05-25-2017 Bj Monatño MD LAB MICROBIOLOGY - GENERAL ORD ERABLES Final Result BRITTANY CAVAZOS [facility] Department [place] [address] documented in this encounter Visit Diagnoses Not on filedocumented in this encounter Care Teams Band Salvager Relationship Specialty Start Date End Date Bj Montaño MD PCP - General Family Medicine 04/15/22 02/19/24 Adam English DO Cloth Framer Gastroenterology 03/26/19 06/05/23 documented as of this encounter
--- OUTSIDE RECORDS SUMMARY | 2024-05-20 13:09 | XMS_ITS | Encounter Summary ---
Author Organization [facility] Address [address] [facility] [address] [place] [address] Care Team Providers Care Health Information Administrator Name Role Phone Janine Terry MD Primary Care Provider [phone] Adam English DO Unavailable [phone] Encounter Details Date Type Department Care Team (Late st Contact Info) Description 12/08/2021 1:15 PM CDT Lab [facility] Outpatient Lab at [address] [phone] Pain in joint, multiple sites (Primary Dx) Social History Tobacco Use Types Packs/Day Years Used Date Smoking Tobacco: Never Smokeless Tobacco: Never Alcohol Use Standard Drinks/Week Comments Not Currently 0 (1 standard drink = 0.6 oz pur e alcohol) Comments No Sex and Gender Information Value Date Recorded Sex Assigned at Not on file Legal Sex Female 2:22 AM GALLERY OR MUSEUM ATTENDANT Gender Identity Female 05/18/2019 7:17 PM GALLERY OR MUSEUM ATTENDANT Sexual Orientation Straight 05/18/2019 7: 17 PM GALLERY OR MUSEUM ATTENDANT documented as of this encounter Plan of Treatment Not on file documented as of this encounter Results * Erythrocyte sedimentation rate (12/08/2021 1:17 PM CDT) Erythrocyte sedimentation rate 10 1 - 30 mm/hr BR[facility]ANY Blood (Blood, Venous) 12/08/2021 1:17 PM CDT 12/08/2021 6:33 PM CDT Narrative BRITTANY - 12/08/2021 8:47 PM CDT FAX RESULTS TO [phone] NICHOLSON Mellissa GERONIMO LAB BLOOD ORDERABLES Fi nal Result Performing Organization Address [facility] Co de Phone Number BRITTANY RIVERA [address] [facility] [place] [address] * МАРИНА qualitative with reflex to МАРИНА Quantitative (12/08/2021 1:17 PM CDT) МАРИНА Negative Negative BRITTANY Comment: Interpretive Data Normal range for МАРИНА [...] PM CDT 12/08/2021 6:33 PM CDT Narrative BRITTANY - 12/10/2021 10:12 AM CDT FAX RESULTS TO [phone]. LYN Mellissa GERONIMO LAB BLOOD ORDERABLES Fi nal Result Performing Organization Address [facility] Co de Phone Number BRITTANY RIVERA [address] [facility] [place] [address] * CRP (acute phase) (12/08/2021 1:17 PM CDT) CRP <3.0 <=10.0 mg/L BR[facility]ANY Blood (Blood, Venous) 12/08/2021 1:17 PM CDT 12/08/2021 6:33 PM CDT Narrative BRITTANY - 12/08/2021 7:20 PM CDT FAX RESULTS TO [phone] NICHOLSON Mellissa GERONIMO LAB BLOOD ORDERABLES nal Result [facility] [address] Department [place] [address] * (ABNORMAL) Comprehensive metabolic panel (12/08/2021 1:17 PM CDT) Sodium 139 135 - 145 mmol/L [facility] Potassium, pl 4.2 3.3 - 4.9 mmol/L [facility] Chloride 103 97 - 110 mmol/L [facility] CO2 27 22 - 32 mmol/L [facility] Anion gap 9 2 - 15 mmol/L [facility] BUN 14 8 - 25 mg/dL [facility] Creatinine 0.81 0.60 - 1.10 mg/dL [facility] Glucose 129 70 - 199 mg/dL [facility] Comment: [...] 12/08/2021 7:20 PM CDT FAX RESULTS TO [phone]. LYN Mellissa GERONIMO LAB BLOOD ORDERABLES Fi nal Result Performing Organization Address City/[facility] Co de Phone Number BRITTANY RIVERA [address] [facility] [employer] [place], [place] [address] * Rheumatoid factor (12/08/2021 1:17 PM CDT) Rheumatoid factor, quant <10 <=15 IUnits/mL [facility] Blood (Blood, Venous) 12/08/2021 1:17 PM CDT 12/08/2021 6:33 PM CDT Narrative BRITTANY - 12/08/2021 7:23 PM CDT FAX RESULTS TO [phone]. LYN Mellissa GERONIMO LAB BLOOD ORDERABLES Fi nal Result Performing Organization Address [facility] Co de Phone Number BRITTANY RIVERA [address] [facility] [place] [address] documented in this encounter Visit Diagnoses Diagnosis Pain in joint, multiple sites- Primary Pain in joint, multiple sites documented in this encounter Care Teams Health Information Administrator Relationship Specialty Start Date End Date Janine Terry MD [address] [place] [address] PCP - General Family Medicine 03/06/19 01/19/22 Adam English DO [address] [place] [address] Marketing Systems Manager Gastroenterology 03/26/19 06/05/23 documented as of this encounter
--- OUTSIDE RECORDS SUMMARY | 2024-05-20 13:10 | XMS_ITS | Encounter Summary ---
Author Organization [facility] Address [address] [place] [address] Phone Care Team Providers Care Chin Strap Cutter Name Role Phone Janine Terry MD Primary Care Provider [phone] Encounter Details Date Type Department Care Team (Late st Contact Info) Description 03/21/2019 Orders Only [facility] Surgery [address] [facility] Advanced Medicine 8th [place] [address] [place] [address] Provider, MD [place] [address] [place], [place] [id number] Social History Tobacco Use Types Packs/Day Years Used Date Smoking Tobacco: Never Assessed Comments Unknown Sex and Gender Information Value Date Recorded Sex Assigned at Not on file Legal Sex Female 2:22 AM SUPERVISOR CYTOLOGY Gender Identity Female 05/18/2019 7:17 PM SUPERVISOR CYTOLOGY Sexual Orientation Straight 05/18/2019 7: 17 PM SUPERVISOR CYTOLOGY documented as of this encounter Plan of Treatment Not on file documented as of this encounter Procedures Procedure Name Priority Date/Time Associated Diagnosis Comments SCAN - RADIOLOGY/IMAGING Routine 02/23/2019 SCAN - LABS Routine 02/23/2019 COLONOSCOPY - SCAN Routine 10/03/2018 documented in this encounter Results * SCAN - LABS (02/23/2019) Historical Provider Final Res ult * SCAN - RADIOLOGY/IMAGING (02/23/2019) Anatomical Region Laterality Modality Other Historical Provider Final Res ult * COLONOSCOPY - SCAN (10/03/2018) us Historical Provider Final Res ult documented in this encounter Visit Diagnoses Not on filedocumented in this encounter Care Teams Chin Strap Cutter Relationship Specialty Start Date End Date Janine Terry MD [address] [place] [address] PCP - General Family Medicine 03/06/19 01/19/22 documented as of this encounter
--- OUTSIDE RECORDS SUMMARY | 2024-05-20 13:10 | XMS_ITS | Encounter Summary ---
Author Organization [facility] Address [address] [place] [address] Phone Care Team Providers Care Card Cutter Name Role Phone Janine Terry MD Primary Care Provider Adam English DO Unavailable [phone] Reason for Visit * Reason Comments Post-op Visit S/P 04/18/2019 Lapar oscopic sigmoid colectomy Encounter Details Date Type Department Care Team (Latest Contact Info) Description 05/21/2019 7:30 AM BAT LATHE OPERATOR Office Visit [facility] Surgery [address] [facility] 8th [place] [phone] Da Hodge MD [address] [facility] [phone] [place] [address] Diverticulitis (Primary Dx) Social History Tobacco Use Types Packs/Day Years Used Date Smoking Tobacco: Never Smokeless Tobacco: Never Alcohol Use Standard Drinks/Week Comments Not Currently 0 (1 standard drink = 0.6 oz pur e alcohol) Comments No Sex and Gender Information Value Date Recorded Sex Assigned at Not on file Legal Sex Female 2:22 AM BAT LATHE OPERATOR Gender Identity Female 05/18/2019 7:17 PM BAT LATHE OPERATOR Sexual Orientation Straight 05/18/2019 7: 17 PM BAT LATHE OPERATOR documented as of this encounter Last Filed Vital Signs Vital Sign Reading Time Taken Comments Blood Pressure 147/93 05/21/2019 7:31 AM BAT LATHE OPERATOR Pulse 93 05/21/2019 7:31 AM BAT LATHE OPERATOR Temperature 36.7 ??C (98 ??F) 05/21/2019 7:31 AM BAT LATHE OPERATOR Respiratory Rate - - Oxygen Saturation - - Inhaled Oxygen Concentration - - Weight 131 kg (288 lb 12.8 oz) 05/21/2019 7:31 A M BAT LATHE OPERATOR Height 177.8 cm (5' 10 ) 05/21/2019 7:31 AM BAT LATHE OPERATOR Body Mass Index 41.44 05/21/2019 7:31 AM BAT LATHE OPERATOR documented in this encounter Progress Notes * Da Hodge MD - 05/21/2019 7:30 AM CST Colorectal Post-operative Visit Patient ID: Josy Fiore is a 59 y.o. female who is a month out from a lap sigmoid for diverticulitis. Her path was benign. Rapid hospital course but about 10 days after surgery, her wound drained asignificant amount of clear fluid. She never had any erythema signs of infection. She has been packing the wound and has not had any problems. She has not required any antibiotics. She is eating well. Her bowels are working fine. Physical Exam: Her 5 mm wounds all have scabs over them and have not yet epithelialized. Her Pfannenstiel wound isseparated by about 1.5 cm but has healthy granulation tissue. They are packing it. Assessment and Plan: Ms. Fiore is doing well. She is healing slowly. I will see her back in 2-3 weeks. At that time we can discuss her return to work. 05/21/2019 Da Hodge MD LATHE OPERATOR documented in this encounter Plan of Treatment Not on file documented as of this encounter Visit Diagnoses Diagnosis Diverticulitis- Primary Diverticulitis of colon (without mention of hemorrhage) documented in this encounter Discontinued Medications Medication Sig Discontinue Reason Start Date End Da te aspirin 325 mg tabletIndications:preven tion of thrombosis Take 325 mg by mouth nightly Patient Discharge 05/21/2019 enoxaparin (LOVENOX) 40 mg/0.4 mL syringeIndications:Deep Vein Thrombosis Prevention Inject 0.4 mL (40 mg total) under the skin every 12 (twelve) hours Patient Discharge 04/20/2019 05/21/2019 fluconazole (DIFLUCAN) 150 mg tablet Take 150 mg by mouth as needed Patient Discharge 03/19/2019 05/21/2019 ibuprofen (ADVIL,MOTRIN) 600 mg tablet Take 600 mg by mouth every 6 (six) hours as needed for pain Patient Discharge 05/21/2019 oxyCODONE (ROXICODONE) 5 mg immediate release tabletIndications:Pain Take 1 tablet (5 mg total) by mouth every 4 (four) hours as needed for pain Patient Discharge 04/20/2019 05/21/2019 documented as of this encounter Care Teams Card Cutter Relationship Specialty Start Date End Date Janine Terry MD [address] [place] [address] PCP - General Family Medicine 03/06/19 01/19/22 Adam English DO [address] [place] [address] Design/Animation Instructor Gastroenterology 03/26/19 06/05/23 documented as of this encounter
--- OUTSIDE RECORDS SUMMARY | 2024-05-20 13:10 | XMS_ITS | Encounter Summary ---
Author Organization [facility] Healthcare Address [address] [place] [address] Care Team Providers Care Manager Outpatient Name Role Phone Janine Terry MD Primary Care Provider Adam English DO Unavailable Reason for Visit * Reason Onset Date Comments COVID-19 EVALUATION 12/26/2019 Encounter Details Date Type Department Care Team (Late st Contact Info) Description 12/26/2019 Telephone [facility] Occupatiuonal Health [address] [place] [address] Room 3420 (Third Floor) [place] [address] Julia Osborne RN COVID-19 EVALUATION Social History Tobacco Use Types Packs/Day Years Used Date Smoking Tobacco: Never Smokeless Tobacco: Never Alcohol Use Standard Drinks/Week Comments Not Currently 0 (1 standard drink = 0.6 oz pur e alcohol) Comments No Sex and Gender Information Value Date Recorded Sex Assigned at Not on file Legal Sex Female 2:22 AM LOGGING CONTRACTOR Gender Identity Female 05/18/2019 7:17 PM LOGGING CONTRACTOR Sexual Orientation Straight 05/18/2019 7: 17 PM LOGGING CONTRACTOR documented as of this encounter Miscellaneous Notes * Addendum Note - Jethro Jacinto - 12/26/2019 4:53 PM CDTAddended by: JETHRO JACINTO on: 12/26/2019 04:53 PM Modules accepted: Orders * Telephone Encounter - Julia Osborne RN - 12/26/2019 8:05 AM CDT Employee COVID-19 Screening 12/26/2019 Email: [email or web address] Employee/Student ID# [id number] Are you an employee or student? Employee Employer: [facility] Employee Facility: [facility] Does your job primarily involve providing care for bone marrow transplant patients? 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 [facility] Music Therapy/Quality Assurance Tester name and email address: [email or web address] Are you working/studying from home or on-site? On-site Have you been tested for Covid-19 previously? No Have you had a known, specific COVID exposure? Unknown Description of exposure: Fellow staff member who was cleared after COVID-19 infection, came back towork and sent home same day with fever not quite two weeks ago; Josy works at [employer] and individuals coming for testing have been in halls and using restrooms Employee Symptoms: Yes Date of employee symptom onset: 12/23/2019 Description of Symptoms: Fever;Sore Throat;Other;Joint Aches;Muscle Aches;New Diarrhea Temperature: 99.4 Other Symptoms: Hoarseness; slight sore throat Did you have symptoms at work? No Date symptoms started: 12/23/2019 Date last worked: 12/23/2019 Do you currently live with, or have ongoing contact with, someone known or suspected to have COVID-19? No Exposure Risk (See Exposure Guide): Low Assessment: Symptomatic, unknown exposure Plan: (A) Stay home and test Testing Site Location: [facility] Given your symptoms, you should not come to work and will be referred for testing. ?? Please go to the employee testing site at [address] [place] [address] ?? While you are awaiting testing and results, you must remain off work. While waiting for results,home quarantine guidance still applies. You should isolate yourself at home, avoid contact with anyhousehold members as much as possible, and stay in your home without leaving except for medical care. If your symptoms worsen, please call back or call 911 - let your providers, ER or EMS now that you are being tested for COVID19. ?? Once your results are back, you will receive further instruction from Occupational Health. Don'treturn to work until you hear from [facility]. Occupational Health will notify you and your water manager when you can return to work. ?? Should your test result positive, Occupational Health ([facility]) will work with you to identify any close contacts you may have had at work. [facility] will then alert your work contacts directly; you do not have to. Your logistics supervisor should consult with [facility] if they have any questions and before any communication with coworkers about a positive test. [facility] will help ensure that coworkers potentially at risk are no tified and given appropriate advise without unnecessary disclosure of personal health information. ?? You must follow any additional isolation or quarantine instructions provided to you from federal, state or local public health authorities. ?? We will send you an email with self-quarantine instruction. ?? You should let your logistics supervisor know that you will not be coming to work. Although the Call Center will email your logistics supervisor to confirm that you have been instructed not to come to work, it is still your responsibility to notify your logistics supervisor as you would for any other work absence. documented in this encounter Plan of Treatment Not on file documented as of this encounter Results * COVID-19 Coronavirus RNA Nasopharyngeal (12/26/2019 4:53 PM CDT) COVID-19 RNA Not Detected BRITTANY ALMANZAR Comment: Interpretive Data Testing performed at [facility]. The 2018-Novel Coronavirus Assay (COVID-19) Real Time RT-PCR assay is for in vitro diagnostic use under FDA emergency use authorization only. A negative RT-PCR result does not preclude infection with COVID-19 and should not be used as the sole basis for treatment or other patient management decisions. Additional sample types have been validated according to CLIA regulations. ?? Current Interpretive Data was last revised on 2019. Nasopharyngeal 12/26/2019 4: 53 PM CDT 12/26/2019 9:52 PM CDT Narrative BRITTANY ALMANZAR - 12/27/2019 2:57 AM CDT Patient is employed by:->[facility] Is the patient experiencing any symptoms consistent with COVID (eg. Fever, cough, shortness of breath)?->Yes Fever; sore throat; hoarseness; joint aches; muscle aches; new diarrhea What is the reason for testing?->Symptoms compatible with COVID-19 in high-risk group (defined above in process inst.) Flori Tapia MD LAB MICROBIOLOGY - GENERAL ORDERABLES Final Result Performing Organization Address City/State/[facility] Co de Phone Number [facility] [place] [address] documented in this encounter Visit Diagnoses Diagnosis Diarrhea, unspecified type- Primary Fever, unspecified fever cause Sore throat Acute pharyngitis Generalized muscle ache Arthralgia, unspecified joint Diarrhea, unspecified type Fever, unspecified fever cause Sore throat Acute pharyngitis Generalized muscle ache Arthralgia, unspecified joint documented in this encounter Additional Health Concerns Infection Onset Date Last Indicated Resolved Time COVID: Suspected 12/26/2019 12/26/2019 12/27/2019 2:58 AM CDT documented as of this encounter Care Teams Manager Outpatient Relationship Specialty Start Date End Date Janine Terry MD [address] [place] [address] PCP - General Family Medicine 03/06/19 01/19/22 Adam English DO [address] [place] [address] Steel Hanger Gastroenterology 03/26/19 06/05/23 documented as of this encounter
--- OUTSIDE RECORDS SUMMARY | 2024-05-20 13:10 | XMS_ITS | Encounter Summary ---
Author Organization [facility] Healthcare Address [address] [place] [address] Care Team Providers Care Physical Education Teacher Name Role Phone Janine Terry MD Primary Care Provider [phone] Adam English. DO Unavailable [phone] Reason for Visit * Diagnostic Imaging (Routine) - Closed Specialty Diagnoses / Procedures Referred By Sisi de león Referred To Contact Diagnoses Right elbow pain Procedures XR Elbow Right 3 or More Views Jordon Gallo MD [address] [place] [address] Phone: tel: fax: [facility] Referral ID Status Reason Start Date Expiration Date Visits Re quested Visits Authorized [id number] Closed 12/17/2020 01/16/2022 1 1 Encounter Details Date Type Department Care Team (Latest Contact Info) Description 12/17/2020 1:10 PM CDT - 12/17/2020 11:59 PM CDT Hospital Encounter [facility] [address] [place] [address] Jordon Gallo MD [address] [place] [address] Discharge Disposition: Discharge to home or self care Social History Tobacco Use Types Packs/Day Years Used Date Smoking Tobacco: Never Smokeless Tobacco: Never Alcohol Use Standard Drinks/Week Comments Not Currently 0 (1 standard drink = 0.6 oz pur e alcohol) Comments No Sex and Gender Information Value Date Recorded Sex Assigned at Not on file Legal Sex Female 2:22 AM LAUNDRY EQUIPMENT OPERATOR Gender Identity Female 05/18/2019 7:17 PM LAUNDRY EQUIPMENT OPERATOR Sexual Orientation Straight 05/18/2019 7: 17 PM LAUNDRY EQUIPMENT OPERATOR documented as of this encounter Medications at Time of Discharge ALPRAZolam (XANAX) 0.25 mg tablet Take 1 tablet (0.25 mg total) by mouth 3 (three) times a day as needed for anxiety losartan-hydroCHLORO thiazide (HYZAAR) 50-12.5 mg per tablet 1/2 tab am 10/14/2020 acetaminophen (TYLENOL) 500 mg tablet Take 1,000 mg by mouth every 6 (six) hours as needed for pain 2 xjvnafo-fitimyqkd-pv nc tablet Take 1 tablet by mouth [...] mouth 3 (three) times a day 2 L gasseri/B bifidum/B longum ([facility]) Take 1 tablet by mouth every morning [facility] every day unsure med dosage 3 lutein 20 mg tablet Take 1 tablet by mouth nightly hs 3 ondansetron ODT (ZOFRAN-ODT) 4 mg disintegrating tabletIndications:Pr evention of Post-Operative Nausea and Vomiting Take 1 [...] venlafaxine XR (EFFEXOR-XR) 150 mg 24 hr capsuleIndications:A nxiety with Depression Take 150 mg by mouth nightly 2 documented as of this encounter Discharge Disposition Disposition Code Departure Means Destination Discharge to home or self care documented in this encounter Plan of Treatment Not on file documented as of this encounter Procedures Procedure Name Priority Date/Time Associated Diagnosis Comments XR ELBOW RIGHT 3 OR MORE VIEWS Schedule Routine, Read Routine (OP Routine) 12/17/2020 1:22 PM CDT Right elbow pain documented in this encounter Results * XR Elbow Right 3 or More Views (12/17/2020 1:22 PM CDT) Anatomical Region Laterality Modality Upper Extremities, Elbow Right Compute d Radiography 12/17/2020 2:02 PM CDT Impressions 12/17/2020 2:47 PM CDT Mild right ulnotrochlear osteoarthritis. Dictated by: Maxim Hayden MD The radiology attending physician has personally reviewed this study, and had reviewed and/or edited this written report and agrees with it. Electronically signed by: Glenroy Aguillon M.D. Narrative 12/17/2020 2:47 PM CDT EXAMINATION: XR ELBOW RIGHT 3 OR MORE VIEWS HISTORY: Right elbow pain FINDINGS: 3 views of the right elbow are submitted for interpretation without comparison. Alignment is normal. ??There is mild ulnotrochlear osteoarthritis. There are no acute fractures. ??There is no effusion. Procedure Note Glenroy Aguillon MD - 12/17/2020 EXAMINATION: XR ELBOW RIGHT 3 OR MORE VIEWS HISTORY: Right elbow pain FINDINGS: 3 views of the right elbow are submitted for interpretation without comparison. Alignment is normal. There is mild ulnotrochlear osteoarthritis. There are no acute fractures. There is no effusion. IMPRESSION: Mild right ulnotrochlear osteoarthritis. Dictated by: Maxim Hayden MD The radiology attending physician has personally reviewed this study, and had reviewed and/or edited this written report and agrees with it. Electronically signed by: Glenroy Eligio Aguillon, M.D. us Jordon Gallo MD IMG XR PROCEDURES Final Res ult documented in this encounter Visit Diagnoses Not on filedocumented in this encounter Care Teams Physical Education Teacher Relationship Specialty Start Date End Date Janine Terry MD [address] [place] [address] PCP - General Family Medicine 03/06/19 01/19/22 Adam English, [address] [place] [address] Turntable Worker Gastroenterology 03/26/19 06/05/23 documented as of this encounter
--- OUTSIDE RECORDS SUMMARY | 2024-05-20 13:10 | XMS_ITS | Encounter Summary ---
Author Organization [facility] Address [address] [place] [address] Phone Care Team Providers Care Rn Cardiovascular Name Role Phone Janine Terry MD Primary Care Provider [phone] Adam English DO Unavailable Reason for Visit * Reason Onset Date Comments Request For Order(s) 12/18/2020 change ther apy script Encounter Details Date Type Department Care Team (Late st Contact Info) Description 12/18/2020 Telephone [facility] Orthopaedic Surgery [facility] [place] [address] Jordon Gallo MD [address] [place] [address] Request For Order(s) (change therapy script ) Social History Tobacco Use Types Packs/Day Years Used Date Smoking Tobacco: Never Smokeless Tobacco: Never Alcohol Use Standard Drinks/Week Comments Not Currently 0 (1 standard drink = 0.6 oz pur e alcohol) Comments No Sex and Gender Information Value Date Recorded Sex Assigned at Not on file Legal Sex Female 2:22 AM MICROARRAY SPECIALIST Gender Identity Female 05/18/2019 7:17 PM MICROARRAY SPECIALIST Sexual Orientation Straight 05/18/2019 7: 17 PM MICROARRAY SPECIALIST documented as of this encounter Ordered Prescriptions Prescription Sig Dispense Quantity Refills Last Filled Start Date End Date gabapentin (NEURONTIN) 300 mg capsule Gabapentin 300 mg One tab PO at night. 30 capsule 12/18/2020 2 documented in this encounter Miscellaneous Notes * Telephone Encounter - Yina Morgan RMA - 12/18/2020 5:38 PM CDT This was Faxed To [facility] [place] * Telephone Encounter - Khalida Hoffman - 12/18/2020 10:08 AM CDT Per patient [facility] is needing us since it is her elbow change the script to occupational therapy fax to [phone] documented in this encounter Plan of Treatment Not on file documented as of this encounter Visit Diagnoses Not on filedocumented in this encounter Care Teams Rn Cardiovascular Relationship Specialty Start Date End Date Janine Terry MD [address] [place] [address] PCP - General Family Medicine 03/06/19 01/19/22 Adam English DO [address] [address] Handwriting Expert Gastroenterology 03/26/19 06/05/23 documented as of this encounter
--- OUTSIDE RECORDS SUMMARY | 2024-05-20 13:10 | XMS_ITS | Encounter Summary ---
Author Organization [facility] Healthcare Address [address] [place] [address] Care Team Providers Care Mine Administrator Supervisor Name Role Phone Janine Terry MD Primary Care Provider [phone] Adam English DO Unavailable [phone] Encounter Details Date Type Department Care Team (Late st Contact Info) Description 01/28/2020 7:20 AM CDT Lab [facility] Advanced Medicine [facility] Advanced Medicine ([facility]) [address] [place] [phone] Social History Tobacco Use Types Packs/Day Years Used Date Smoking Tobacco: Never Smokeless Tobacco: Never Alcohol Use Standard Drinks/Week Comments Not Currently 0 (1 standard drink = 0.6 oz pur e alcohol) Comments No Sex and Gender Information Value Date Recorded Sex Assigned at Not on file Legal Sex Female 2:22 AM NURSING OFFICER Gender Identity Female 05/18/2019 7:17 PM NURSING OFFICER Sexual Orientation Straight 05/18/2019 7: 17 PM NURSING OFFICER documented as of this encounter Plan of Treatment Not on file documented as of this encounter Visit Diagnoses Not on filedocumented in this encounter Care Teams Mine Administrator Supervisor Relationship Specialty Start Date End Date Janine Terry MD [address] [place] [address] PCP - General Family Medicine 03/06/19 01/19/22 Adam English, [address] [place] [address] Tubing Oiler Gastroenterology 03/26/19 06/05/23 documented as of this encounter
--- OUTSIDE RECORDS SUMMARY | 2024-05-20 13:10 | XMS_ITS | Encounter Summary ---
Author Organization [facility] Healthcare Address [address] [facility] [place] [address] Care Team Providers Care Forestry Engineer Name Role Phone Janine Terry MD Primary Care Provider [phone] Adam English DO Unavailable [phone] Encounter Details Date Type Department Care Team (Late st Contact Info) Description 04/18/2019 11:07 AM FILLING STATION LABORER Anesthesia Event [facility] Operating Room [address] [place] [address] Judd Johns MD [address] [facility] [address] [place] [address] Carolyn Ontiveros NP [address] [facility] [id number] [place] [address] Anesthesia Record Procedure Summary Procedure Name Responsible Anesthesiologist Anesthesia Start Time Anesthesia Stop Time RESECTION SIGMOID COLON - LAPAROSCOPIC (Abdomen) Judd Johns MD 04/18/19 1107 04/18/19 1441 Events Date Time Event Comment 04/18/2019 0928 AN Equip Check 0946 1107 An Start 1111 In Room 1111 An Start Data 1115 An Induction The patient was reevaluated immediately before moderate or deep sedation use and before anesthesia induction. 1117 An Intubation 1118 Anesthesia Ready 1130 Proc Start 1131 Incision Start 1223 Quick Note Surgeon leaning on BP cuff 1330 Quick Note Surgeon leaning on NIBP 1335 Quick Note Surgeon leaning on NIBP 1425 Proc Fin 1428 Out of Room 1431 An Extubation 1433 an stop data 1441 Handoff to RN I completed my handoff [...] the time of handoff: No value filed. 1441 An Stop Meds Name Total midazolam 2 mg/2 mL 2 mg fentaNYL PF 250 mcg lidocaine 1 % PF 100 mg propofol 150 mg rocuronium 80 mg HYDROmorphone 2 mg/mL 0.5 mg phenylephrine syringe 100 mcg/mL 200 mcg famotidine PF 20 mg ondansetron PF 4 mg dexamethasone 10 mg/mL PF 8 mg ertapenem (INVanz) 1,000 mg in sodium ch loride 0.9% 100 mL IVPB 1,000 mg sugammadex 260 mg indocyanine green (IC-GREEN) injection 2 5 mg 7.5 mg Lactated Ringer's (LR) infusion 2,500 mL * Agents Name O2 Air Sevoflurane Inspired Sevoflurane * Blood No blood administrations on file. Lines, Drains, and Airways Type Details Placement Removal Peripheral IV Placement Date: 04/18/19; Placement Time: 1001; Catheter Size: 20 G; Orientation: Right; Location: Forearm; Site Prep: Chlorhexidine; Technique: Anatomical landmarks; Insertion Attempts: 1; Patient Tolerance: Tolerated well; Removal Date: 04/20/19; Removal Time: 1259; Removal Reason: Therapy completed 04/18/19 1001 by Gosia Whaley RN 04/20/19 1259 by Birdie Lui RN ETT Placement Date: 04/18/19; Placement Time: 1117 (created via procedure documentation); Mask Ventilation: 2; Technique: Direct laryngoscopy; Type: ETT - single; Single Lumen Tube Size: 7 mm; Cuffed: Yes; Laryngoscope: Rafael; Blade Size: 4; Location: Oral; Grade View: Grade I; Insertion Attempts: 1; Placement Verification: Auscultation, Capnometry; Removal Date: 04/18/19; Removal Time: 1431 04/18/19 1117 by Valerie Lizarraga CRNA 04/18/19 1431 by Valerie Lizarraga CRNA Urethral Catheter Placement Date: 04/18/19; Placement Time: 1148; Inserted by: krystal ALBERT; Type: Non-latex; Size: 16 Fr.; Balloon Size: 10 mL; Urine Returned: Yes; Removal Date: 04/19/19; Removal Time: 0914; Removal Reason: Per order 04/18/19 1148 by Eugenie Roman RN 04/19/19 0914 by Cheryl Gutierres RN RETIRED Surgical Site 04/18/19; 1318; Abdomen; 07/19/22; 0306 04/18/19 1318 by Eugenie Roman RN 07/19/22 0306 by Estefany Zamora RN Closed/Suction/Open Drain 04/18/19; 1400; No; 1; Right, Other (Comment); RLQ; Bulb; 19 Fr.; 1; Therapy complete (d/c'd by MESFIN ALBERT) 04/18/19 1400 by Eugenie Roman RN 04/20/19 1300 by Birdie Lui RN documented in this encounter Social History Tobacco Use Types Packs/Day Years Used Date Smoking Tobacco: Never Smokeless Tobacco: Never Alcohol Use Standard Drinks/Week Comments Not Currently 0 (1 standard drink = 0.6 oz pur e alcohol) Comments No Sex and Gender Information Value Date Recorded Sex Assigned at Not on file Legal Sex Female 2:22 AM FILLING STATION LABORER Gender Identity Female 05/18/2019 7:17 PM FILLING STATION LABORER Sexual Orientation Straight 05/18/2019 7: 17 PM FILLING STATION LABORER documented as of this encounter OR Notes * Anesthesia Postprocedure Evaluation - Burton Melara MD - 04/18/2019 2:47 PM CST Patient: Josy Fiore Procedure Summary Date: 04/18/19 Room / Location: [facility] OPERATING ROOM 01 / [facility] OPERATING ROOM Anesthesia Start: 1107 Anesthesia Stop: 1441 Procedures: RESECTION SIGMOID COLON - LAPAROSCOPIC (N/A Abdomen) PLACEMENT PREOPERATIVE STENT - URETERAL (N/A Ureter) Diagnosis: Diverticulitis (Diverticulitis [K57.92]) Surgeon: Da Hodge MD; Benito Clifton MD Responsible Provider: Judd Johns MD Anesthesia Type: general ASA Status: 3 Anesthesia Type: general Last vitals BP 126/70 (BP Location: Left arm, Patient Position: Lying) Pulse 77 Temp 36.7 ??C (98.1 ??F) (Temporal) Resp 22 SpO2 99% Anesthesia Post Evaluation Patient location during evaluation: PACU Patient participation: complete - patient participated Level of consciousness: 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 education teacher Pain score: 4 Pain management: adequate Airway patency: adequate and patent Evidence of recall: no Anesthetic complications: no Cardiovascular status: hemodynamically stable and acceptable Respiratory status: acceptable and nasal cannula Hydration status: euvolemic Pt is: normothermic Nausea/Vomiting status: none ING STATION LABORER * Anesthesia Procedure Notes - Valerie Lizarraga CRNA - 04/18/2019 11:30 AM CSTAssociated Order(s): Airway Airway Patient location: OR Urgency: elective Date/time: 04/18/2019 11:17 AM Indications for airway management: anesthesia Difficult airway: no Staff: Placed by: CABLE ENGINEER: Valerie Lizarraga CRNA Airway prep: Preoxygenated: yes Patient position: sniffing Mask difficulty assessment: 2 - vent by mask + OA or adjuvant Spontaneous ventilation during airway: absent Sedation level during airway: GA Final airway details: Final airway type: endotracheal airway Tube type: ETT ETT size: 7.0 mm Cuffed: yes Technique used for successful ETT placement: direct laryngoscopy Devices/Methods used in placement: intubating stylet and cricoid pressure Insertion site: oral Blade type: Rafael Blade size: 4 Cormack-Lehane (direct): grade I - full view of glottis Cuff volume: 6 mL Cuff inflated with: air ETT to teeth: 22 cm Placement verified by: auscultation and CO2 detection Airway secured with: silk tape Number of attempts: 1 ING STATION LABORER * Anesthesia Preprocedure Evaluation - Judd Johns MD - 04/03/2019 3:20 PM CST Images from the original note were not included. [facility] and Planning Preoperative Evaluation Record Evaluation type/location: [facility] OR Date: 04/03/19 Anesthesia Evaluation Josy Fiore is a 59 y.o. female Procedure(s): RESECTION SIGMOID COLON - LAPAROSCOPIC PLACEMENT PREOPERATIVE STENT - URETERAL Pre-Op Diagnosis Codes: * Diverticulitis [K57.92] HISTORY HPI Josy Fiore is a 59 y.o. female who is being evaluated prior to undergoing RESECTION SIGMOID COLON - LAPAROSCOPIC/ PLACEMENT PREOPERATIVE STENT - URETERAL for recurrent diverticuliits. Past Medical History Neurological + Psychiatric history (no panic attacks; currently denies Si/ HI) - anxiety and depression Pertinent negatives: seizures; CVA/stroke and TIA Cardiovascular + Other arrhythmia ( PVCs per pt account) Pertinent negatives: hypertension ; KS ; valvular heart disease; valve replacement; atrial fibrillation; pacemaker/ICD; DVT/PE; negative for CHF and hyperlipidemia Respiratory Pertinent negatives: COPD; asthma and non-smoker Hepatic / Heme + Liver disease (NAFLD--> Vit E per GI doc's recommendations) Pertinent negatives: history of anemia; history of thrombocytopenia and history of Vicky positive Gastrointestinal + GERD - PRN medication use only. Symptoms < 1x/week. Renal / Renal/ system: negative Musculoskeletal/Pain Pertinent negatives: chronic pain; chronic opioid use and previous treatment for opioid use disorder Endocrine / Other + Obesity (BMI >30)- morbid obesity (BMI>40). + Cancer history- skin cancer only. Cancer type: BCCa to R confucianism- s/p resection. Pertinent negatives: diabetes mellitus and thyroid disease Functional Capacity Functional capacity: 4-6 METs Comments: Able to climb 2 flights @ mod pace w/o SOB or CP Day of Surgery assessments + Possibility of assessed (EMILY/ BSO @ 42) - ruled out by patient's provided history. Review of Systems + melena/hematochezia (02/23 in ER for melana, sent home same day with Hgb 14.1) + vision loss (corrective lenses.) + nausea/vomiting (nausea r/t diverticulitis and Abx) + diarrhea (due to Abx for diverticulitis) + abdominal pain (heaviness in LLQ) Pertinent negatives: productive cough; wheezing; SOB; recent cold/flu; fever; chest pain; palpitations; orthopnea; pedal edema; PND; previous transfusion; easy bruising; bleeding problems; syncope; dizziness; muscle weakness; chronic pain; numbness/tingling; hard of hearing; heartburn; dysphagia; chipped/loose teeth; diaphoresis and no unexpected weight change PAT Summary and Plans Cardiac risk classification of planned procedure: intermediate cardiac risk. Preoperative assessment status: complete pending laboratory results. Additional comments: Josy Fiore is a 59 y.o. female who is being evaluated prior to undergoing an intermediate cardiac risk surgery. Revised Cardiac Risk Index factors are (none) for a total RCRI of 0 out of 6. Functional capacity is 4-6 METs. Obstructive sleep apnea (DON) screening status is STOP-Bang=4 with bicarbonate < 28 suggesting moderate risk for DON. The patient is at elevated risk for obstructive sleep apnea (DON) per STOP-BANG screening questionnaire results. Patient informed of the possibility that they have undiagnosed DON, which may increasetheir risk for perioperative respiratory events. Patient also informed of the possible long-term health problems associated with DON. Because we do not feel that preoperative DON testing is likely tooutweigh the downsides of delaying surgery, we have recommended that the patient talk to their primary doctor or other clinician after surgery about getting tested for DON. Blood bank needs for day of procedure: Type and Screen only Pending labs/tests include: T&S Urine culture EKG today nsr. Rate 84 reviewed labs in Media dated 02/23/19: CBC--> WBC 10.6, H&H 14.1/ 42.1, Plt 265 BMP--> Na 137, K 4.2, Cl 100, CO2 26, BUN 16, Cr 0.80, Ca 9.3 Vicky Ab negative TMJ periodicaly becomes malaligned- full ROM on exam today The patient is on aspirin therapy for primary prevention. The patient???s perioperative cardiovascular risk is deemed low or is outweighed by bleeding risk. If the surgeon is in agreement with this risk assessment, we would support stopping aspirin prior to the procedure. Sent Pool message to surgeon @ [facility] CPAP assessment complete pending lab/ tests results Preoperative evaluation performed by Mima Jaime NP on 04/03/19 at 3:42 PM. . Follow up note Type and screen vicky negative Awaiting urine culture. Surgeon's office reviews laboratory results independently. Follow-up completed by: Breanna Monae NP on 04/04/19 at 9:49 AM Follow up note Final report of urine culture shows insignificant growth. CPAP complete. Follow-up completed by: Carolyn Ontiveros NP on 04/05/19 at 12:28 PM Patient Active Problem List Diagnosis ??? Diverticulitis Past Medical History: Diagnosis Date ??? Anxiety ??? Arthritis Right ankle and knee ??? Cholecystitis ??? Colorectal polyps ??? Depression ??? Diverticulitis ??? NAFLD (nonalcoholic fatty liver disease) ??? Ovarian cyst ??? Rosacea ??? TMJ (temporomandibular joint syndrome) periodicaly becomes malaligned Past Surgical History: Procedure Laterality Date ??? COLONOSCOPY 10/03/2018 ??? GALLBLADDER SURGERY 2012 ??? HYSTERECTOMY 1999 ??? LAPAROSCOPIC OVARIAN CYSTECTOMY ??? TONSILLECTOMY AND ADENOIDECTOMY 1963 OB History No obstetric history on file. Allergies Allergen Reactions ??? Penicillins Unknown ??? Inapsine [Droperidol] Anxiety irritability Med List Status: Nurse Complete Set By: Adam Escobar RN at 04/03/2019 2:35 PM Taking? Last Dose Start Date End Date Provider acetaminophen (TYLENOL) 500 mg tablet -- -- Historical Provider, ALPRAZolam (XANAX) 0.25 mg tablet -- -- Historical Provider, aspirin 325 mg tablet -- -- Historical Provider, uwcdzkq-cvgvhhpfg-ywyy tablet -- -- Historical Provider, cetirizine (ZyrTEC) 10 mg tablet -- -- Historical Provider, cholecalciferol (VITAMIN D-3) 2,000 unit capsule -- -- Historical Provider, fluconazole (DIFLUCAN) 150 mg tablet 03/19/19 -- Historical Provider, ibuprofen (ADVIL,MOTRIN) 600 mg tablet -- -- Historical Provider, MD Hawkins gasseri/Alessandra bifidum/B longum ([facility] [employer] ORAL) -- -- Historical Provider, lutein 20 mg tablet -- -- Historical Provider, metroNIDAZOLE (FLAGYL) 500 mg tablet 03/27/19 -- Da Hodge MD Take one tablet at 1:00pm, 2:00pm, and 10:00pm day prior to surgery neomycin (MYCIFRADIN) 500 mg tablet 03/27/19 -- Da Hodge MD Take two tablets by mouth at 1pm, 2pm, and 10pm the day before surgery ondansetron (ZOFRAN) 8 mg tablet 03/27/19 -- Da Hodge MD Take one tablet at 11:00am with miralax bowel prep. Take one tablet 8 hours for nausea. psyllium husk (METAMUCIL ORAL) -- -- Historical Provider, soy isofla/blk cohosh/mag bark (ESTROVEN ORAL) -- -- Historical Provider, venlafaxine XR (EFFEXOR-XR) 150 mg 24 hr capsule -- -- Historical Provider, vitamin E 400 unit capsule -- -- Historical Provider, Current Outpatient Medications: ??? acetaminophen (TYLENOL) 500 mg tablet ??? ALPRAZolam (XANAX) 0.25 mg tablet ??? aspirin 325 mg tablet ??? ypakozk-zhdsxjcms-hsqu tablet ??? cetirizine (ZyrTEC) 10 mg tablet ??? cholecalciferol (VITAMIN D-3) 2,000 unit capsule ??? fluconazole (DIFLUCAN) 150 mg tablet ??? ibuprofen (ADVIL,MOTRIN) 600 mg tablet ??? L gasseri/B bifidum/B longum ([facility] COLON [facility] ORAL) ??? lutein 20 mg tablet ??? metroNIDAZOLE (FLAGYL) 500 mg tablet ??? neomycin (MYCIFRADIN) 500 mg tablet ??? ondansetron (ZOFRAN) 8 mg tablet ??? psyllium husk (METAMUCIL ORAL) ??? soy isofla/blk cohosh/mag bark (ESTROVEN ORAL) ??? venlafaxine XR (EFFEXOR-XR) 150 mg 24 hr capsule ??? vitamin E 400 unit capsule Social History Tobacco Use Smoking Status Never Smoker Smokeless Tobacco Never Used Substance and Sexual Activity Alcohol Use Not Currently Substance and Sexual Activity Drug Use Not Currently Family History Problem Relation Age of Onset [...] Neg Hx ??? Clotting disorder Neg Hx PAT Physical Exam Airway Exam: Mallampati: III Cervical ROM: FROM Cardiovascular Exam: Rate: regular Rhythm: regular Negative for Murmur No extra heart sounds appreciated Peripheral edema: trace edema Pulmonary Exam: LCTA EENT Exam: trachea midline Dental Exam: Appears intact Skin Exam: Skin is warm and dry. Abdominal exam: Abdomen is soft. Bowel sounds are present. Current state: Patient's current state is cooperative and interactive. Vitals: 04/03/19 1440 04/03/19 1445 BP: 139/96 138/85 Pulse: 89 Resp: 18 SpO2: 96% PT: No results found for requested labs within last 720 hours. INR: No results found for requested labs within last 720 hours. APTT: No results found for requested labs within last 720 hours. Hgb A1C: No results found for requested labs within last 720 hours. CBC RBC: No results found for requested labs within last 720 hours. RDW: No results found for requested labs within last 720 hours. MCHC: No results found for requested labs within last 720 hours. MCH: No results found for requested labs within last 720 hours. MCV: No results found for requested labs within last 720 hours. Hct: No results found for requested labs within last 720 hours. Hgb: No results found for requested labs within last 720 hours. WBC: No results found for requested labs within last 720 hours. MPV: No results found for requested labs within last 720 hours. Platelets: No results found for requested labs within last 720 hours. RDW CV: No results found for requested labs within last 720 hours. RDW Sd: No results found for requested labs within last 720 hours. BMP Glucose: No results found for requested labs within last 720 hours. Calcium: No results found for requested labs within last 720 hours. Sodium: No results found for requested labs within last 720 hours. Potassium: No results found for requested labs within last 720 hours. CO2: No results found for requested labs within last 720 hours. Chloride: No results found for requested labs within last 720 hours. BUN: No results found for requested labs within last 720 hours. Creatinine: No results found for requested labs within last 720 hours. STOP-Bang Total Score: 4 Kathryn index score: 100 DOS Physical Exam Medical history, medications, and allergies reviewed. Attestation: This PAT evaluation Airway Exam: Mallampati: III Cervical ROM: FROM Cardiovascular Exam: Rate: regular Rhythm: regular Pulmonary Exam: LCTA, bilat Anesthesia Plan ASA 3 My patient is approved for the Anesthesia Controlled Medication protocol when under care of a CABLE ENGINEER Planned anesthesia: General Informed Consent: Anesthesia plan and risks discussed with patient. Consent and Attending signature: I and/or my designee have discussed the anesthesia plan, benefits, possible alternatives, parental presence at time of induction (if indicated), and clinically relevant risks that may include dental injury, unintentional awareness, and/or other complications. The patient and/or parent/legal guardian understand, and agree to proceed. All questions answered. ING STATION LABORER ING STATION LABORER ING STATION LABORER ING STATION LABORER documented in this encounter Plan of Treatment Not on file documented as of this encounter Procedures Procedure Name Priority Date/Time Associated Diagnosis Comments VT AN PROCEDURE PLACEHOLDER Routine 04/18/2019 11:30 AM FILLING STATION LABORER VT AN ELECTIVE ENDOTRACHEAL AIRWAY Routine 04/18/2019 11:30 AM FILLING STATION LABORER documented in this encounter Results * VT AN ELECTIVE ENDOTRACHEAL AIRWAY, VT AN PROCEDURE PLACEHOLDER (04/18/2019 11:30 AM FILLING STATION LABORER) Narrative Valerie Lizarraga CRNA - 04/18/2019 11:30 AM FILLING STATION LABORER Valerie Lizarraga CRNA ? 04/18/2019 11:31 AM Airway Patient location: OR Urgency: elective Date/time: 04/18/2019 11:17 AM Indications for airway management: anesthesia Difficult airway: no Staff: Placed by: CABLE ENGINEER: Valerie Lizarraga CRNA Airway prep: Preoxygenated: yes Patient position: sniffing Mask difficulty assessment: 2 - vent by mask + OA or adjuvant Spontaneous ventilation during airway: absent Sedation level during airway: GA Final airway details: Final airway type: endotracheal airway Tube type: ETT ETT size: 7.0 mm Cuffed: yes Technique used for successful ETT placement: direct laryngoscopy Devices/Methods used in placement: intubating stylet and cricoid pressure Insertion site: oral Blade type: Rafael Blade size: 4 Cormack-Lehane (direct): grade I - full view of glottis Cuff volume: 6 mL Cuff inflated with: air ETT to teeth: 22 cm Placement verified by: auscultation and CO2 detection Airway secured with: silk tape Number of attempts: 1 Judd Johns MD ANESTHESIA ORDERABLES Fi nal Result documented in this encounter Visit Diagnoses Not on filedocumented in this encounter Administered Medications Inactive Administered Medications - up to 3 most recent administrations Medication Order MAR Action Action Date Dose Rate Site dexAMETHasone (DECADRON) preservative free solution intravenous, Administer over 2 Minutes, As needed, Starting on Valeria 04/18/19 at 1118, Anesthesia Intra-op Given 04/18/2019 11:18 AM FILLING STATION LABORER 8 mg ertapenem (INVanz) 1,000 mg in sodium chloride 0.9% 100 mL IVPB 1,000 mg, intravenous, at 200 mL/hr, Administer over 30 Minutes, Once, On Valeria 04/18/19 at 1115, For 1 dose, Pre-Op, Do not mix with dextrose or other medications. Mini-bag Plus, Indications: Prophylaxis, SurgicalIndications:Prophylaxis , Surgical New Bag 04/18/2019 11:07 AM FILLING STATION LABORER 1,000 mg famotidine (PEPCID) injection intravenous, Administer over 2 Minutes, As needed, Starting on Valeria 04/18/19 at 1107, Anesthesia Intra-op Given 04/18/2019 11:07 AM FILLING STATION LABORER 20 mg fentaNYL (SUBLIMAZE) preservative free injection intravenous, As needed, Starting on Valeria 04/18/19 at 1112, Anesthesia Intra-op Given 04/18/2019 12:35 PM FILLING STATION LABORER 50 mcg Given 04/18/2019 12:08 PM FILLING STATION LABORER 50 mcg Given 04/18/2019 11:44 AM FILLING STATION LABORER 50 mcg HYDROmorphone (DILAUDID) injection intravenous, Administer over 2 Minutes, As needed, Starting on Valeria 04/18/19 at 1348, Anesthesia Intra-op Given 04/18/2019 1:48 PM FILLING STATION LABORER 0.5 mg indocyanine green (IC-GREEN) injection As needed, Starting on Valeria 04/18/19 at 1320, Anesthesia Intra-op Given 04/18/2019 1:20 PM FILLING STATION LABORER 7.5 mg Lactated Ringer's (LR) infusion 30 mL/hr, intravenous, Continuous, Starting on Valeria 04/18/19 at 1000, Pre-Op, Use a 500 ml bag for End Stage Renal Disease Patients New Bag 04/18/2019 1:34 PM FILLING STATION LABORER New Bag 04/18/2019 12:00 PM FILLING STATION LABORER New Bag 04/18/2019 10:02 AM FILLING STATION LABORER 30 mL/hr 30 mL/hr lidocaine PF (XYLOCAINE) 10 mg/mL (1 %) preservative free injection As needed, Starting on Valeria 04/18/19 at 1115, Anesthesia Intra-op Given 04/18/2019 11:15 AM FILLING STATION LABORER 100 mg midazolam (VERSED) injection intravenous, As needed, Starting on Valeria 04/18/19 at 1107, Anesthesia Intra-op Given 04/18/2019 11:07 AM FILLING STATION LABORER 2 mg ondansetron (ZOFRAN) injection intravenous, Administer over 2 Minutes, As needed, Starting on Valeria 04/18/19 at 1427, Anesthesia Intra-op Given 04/18/2019 2:27 PM FILLING STATION LABORER 4 mg phenylephrine (MARGIE-SYNEPHRINE) 0.5 mg/5 mL (100 mcg/mL) in sodium chloride 0.9% (premix) intravenous, As needed, Starting on Valeria 04/18/19 at 1139, Anesthesia Intra-op Given 04/18/2019 12:24 PM FILLING STATION LABORER 100 mc g Given 04/18/2019 12:18 PM FILLING STATION LABORER 50 mcg Given 04/18/2019 11:39 AM FILLING STATION LABORER 50 mcg propofol (DIPRIVAN) IV intravenous, As needed, Starting on Valeria 04/18/19 at 1115, Anesthesia Intra-op Given 04/18/2019 11:15 AM FILLING STATION LABORER 150 mg rocuronium (ZEMURON) injection intravenous, As needed, Starting on Valeria 04/18/19 at 1115, Anesthesia Intra-op Given 04/18/2019 1:48 PM FILLING STATION LABORER 10 mg Given 04/18/2019 12:34 PM FILLING STATION LABORER 20 mg Given 04/18/2019 11:15 AM FILLING STATION LABORER 50 mg sugammadex (BRIDION) 100 mg/mL intravenous solution As needed, Starting on Valeria 04/18/19 at 1427, Anesthesia Intra-op Given 04/18/2019 2:27 PM FILLING STATION LABORER 260 mg documented in this encounter Care Teams Forestry Engineer Relationship Specialty Start Date End Date Janine Terry MD [address] [place] [address] PCP - General Family Medicine 03/06/19 01/19/22 Adam English DO [address] [place] [address] Recreation Facility Attendant Gastroenterology 03/26/19 06/05/23 documented as of this encounter
--- OUTSIDE RECORDS SUMMARY | 2024-05-20 13:10 | XMS_ITS | Encounter Summary ---
Author Organization [facility] Healthcare Address [address] [place] [address] Care Team Providers Care Hospital Coder Name Role Phone Janine Terry MD Primary Care Provider [phone] Adam English DO Unavailable [phone] Encounter Details Date Type Department Care Team (Late st Contact Info) Description 02/17/2020 Telephone [facility] Breast [facility] ([facility]) [address] [place] [id number] Nova Estes RN Social History Tobacco Use Types Packs/Day Years Used Date Smoking Tobacco: Never Smokeless Tobacco: Never Alcohol Use Standard Drinks/Week Comments Not Currently 0 (1 standard drink = 0.6 oz pur e alcohol) Comments No Sex and Gender Information Value Date Recorded Sex Assigned at Not on file Legal Sex Female 2:22 AM AQUATICS COORDINATOR Gender Identity Female 05/18/2019 7:17 PM AQUATICS COORDINATOR Sexual Orientation Straight 05/18/2019 7: 17 PM AQUATICS COORDINATOR documented as of this encounter Miscellaneous Notes * Telephone Encounter - Nova Estes - 02/17/2020 1:06 PM CDT COMPLETED COVID PRESCREEN documented in this encounter Plan of Treatment Not on file documented as of this encounter Visit Diagnoses Not on filedocumented in this encounter Care Teams Hospital Coder Relationship Specialty Start Date End Date Janine Terry MD [address] [place] [address] PCP - General Family Medicine 03/06/19 01/19/22 Adam English DO [address] [place] [address] Social Media Senior Associate Gastroenterology 03/26/19 06/05/23 documented as of this encounter
--- OUTSIDE RECORDS SUMMARY | 2024-05-20 13:10 | XMS_ITS | Encounter Summary ---
Author Organization [facility] Healthcare Address [address] [place] [address] Care Team Providers Care Application Support Administrator Name Role Phone Janine Terry MD Primary Care Provider [phone] Adam English DO Unavailable [phone] Encounter Details Date Type Department Care Team (Latest Contact Info) Description 02/18/2020 9:13 AM CDT - 02/18/2020 9:17 AM CDT Hospital Encounter [facility]) [address] [place] [id number] Discharge Disposition: Discharge to home or self care Social History Tobacco Use Types Packs/Day Years Used Date Smoking Tobacco: Never Smokeless Tobacco: Never Alcohol Use Standard Drinks/Week Comments Not Currently 0 (1 standard drink = 0.6 oz pur e alcohol) Comments No Sex and Gender Information Value Date Recorded Sex Assigned at Not on file Legal Sex Female 2:22 AM AGRICULTURAL LABOR CAMP MANAGER Gender Identity Female 05/18/2019 7:17 PM AGRICULTURAL LABOR CAMP MANAGER Sexual Orientation Straight 05/18/2019 7: 17 PM AGRICULTURAL LABOR CAMP MANAGER documented as of this encounter Medications at Time of Discharge ALPRAZolam (XANAX) 0.25 mg tablet Take 1 tablet (0.25 mg total) by mouth 3 (three) times a day as needed for anxiety acetaminophen (TYLENOL) 500 mg tablet Take 1,000 mg by mouth every 6 (six) hours as needed for pain 2 wotwdwd-mevbujibs-qu nc tablet Take 1 tablet by mouth [...] a day 2 L gasseri/B bifidum/B longum ([facility] COLON HEALTH ORAL) Take 1 tablet [...] Procedure Name Priority Date/Time Associated Diagnosis Comments BREAST IMAGING OUTSIDE REFERENCE Routine 02/18/2020 9:13 AM CDT documented in this encounter Results * Breast Imaging Outside Reference (02/18/2020 9:13 AM CDT) Impressions RAD_MAMMO[facility] - 02/18/2020 9:13 AM CDT These images are for Reference purposes only and have not been reviewed by [facility] Radiology. ??There will be no report generated by a [facility] Radiologist. Narrative [facility]_M[facility]MO[facility] - 02/18/2020 9:13 AM CDT EXAMINATION: ??Images For Reference Purposes Only us Physician No IMG MAMMO PROCEDURES Final Resul t [facility] documented in this encounter Visit Diagnoses Not on filedocumented in this encounter Care Teams Application Support Administrator Relationship Specialty Start Date End Date Janine Terry MD [address] [place] [address] PCP - General Family Medicine 03/06/19 01/19/22 Adam English DO [address] [place] [address] Power Sweeper Operator Gastroenterology 03/26/19 06/05/23 documented as of this encounter
--- OUTSIDE RECORDS SUMMARY | 2024-05-20 13:10 | XMS_ITS | Encounter Summary ---
Author Organization [facility] Healthcare Address [address] [place] [address] Care Team Providers Care Upholsterer Assembly Line Name Role Phone Janine Terry MD Primary Care Provider [phone] Adam English DO Unavailable [phone] Encounter Details Date Type Department Care Team (Latest Contact Info) Description 03/27/2019 6:47 PM PELLETIZER OPERATOR Hospital Encounter [facility]) [address] [place] [id number] Discharge Disposition: Discharge to home or self care Social History Tobacco Use Types Packs/Day Years Used Date Smoking Tobacco: Never Comments Unknown Sex and Gender Information Value Date Recorded Sex Assigned at Not on file Legal Sex Female 2:22 AM PELLETIZER OPERATOR Gender Identity Female 05/18/2019 7:17 PM PELLETIZER OPERATOR Sexual Orientation Straight 05/18/2019 7: 17 PM PELLETIZER OPERATOR documented as of this encounter Medications at Time of Discharge ALPRAZolam (XANAX) 0.25 mg tablet Take 1 tablet (0.25 mg total) by mouth 3 (three) times a day as needed for anxiety aspirin 325 mg tabletIndications:pr evention of thrombosis Take 325 mg by mouth nightly 0 xqomyjl-ympzxvxcs-jp nc tablet Take 1 tablet by mouth nightly 1000mg/400mg/1 5mg every day 3 cholecalciferol (VITAMIN D-3) 2,000 unit capsule Take 2,000 Units by mouth nightly 2 enoxaparin (LOVENOX) 40 mg/0.4 mL syringeIndications:D eep Vein Thrombosis Prevention Inject 0.4 mL (40 mg total) under the skin every 12 (twelve) hours 21 Syringe 04/20/2019 0 fluconazole (DIFLUCAN) 150 mg tablet Take 150 mg by mouth as needed 0 03/19/2019 0 L gasseri/B bifidum/B longum ([facility] COLON HEALTH ORAL) Take 1 tablet by mouth every morning Colon Health every day unsure med dosage 3 lutein 20 mg tablet Take 1 tablet by mouth nightly hs 3 metroNIDAZOLE (FLAGYL) 500 mg tablet Take one tablet at 1:00pm, 2:00pm, and 10:00pm day prior to surgery 3 tablet 03/27/2019 9 neomycin (MYCIFRADIN) 500 mg tablet Take two tablets by mouth at 1pm, 2pm, and 10pm the day before surgery 6 tablet 03/27/2019 9 nitrofurantoin monohydrate (MACROBID) 100 mg capsule TK 1 C PO Q 12 H FOR 7 DAYS WITH FOOD AND MEALS 0 03/22/2019 9 ondansetron (ZOFRAN) 8 mg tablet Take one tablet at 11:00am with miralax bowel prep. Take one tablet 8 hours for nausea. 4 tablet 03/27/2019 9 ondansetron ODT (ZOFRAN-ODT) 4 mg disintegrating tabletIndications:Pr evention of Post-Operative Nausea and Vomiting Take 1 tablet (4 mg total) by mouth every 4 (four) hours as needed for nausea or vomiting 20 tablet 04/20/2019 2 oxyCODONE (ROXICODONE) 5 mg immediate release tabletIndications:Pa in Take 1 tablet (5 mg total) by mouth every 4 (four) hours as needed for pain 20 tablet 04/20/2019 0 psyllium husk (METAMUCIL ORAL) Take 6 Caplet by mouth every morning 6 caps am 4 soy isofla/blk cohosh/mag bark (ESTROVEN ORAL) Take 1 tablet by mouth nightly Unsure med dosage hs 9 venlafaxine XR (EFFEXOR-XR) 150 mg 24 hr capsuleIndications:A nxiety with Depression Take 150 mg by mouth nightly 2 vitamin E 400 unit capsule Take 400 Units by mouth nightly hs 9 documented as of this encounter Discharge Disposition Disposition Code Departure Means Destination Discharge to home or self care documented in this encounter Plan of Treatment Not on file documented as of this encounter Procedures Procedure Name Priority Date/Time Associated Diagnosis Comments CT BODY OUTSIDE REFERENCE Routine 03/27/2019 6:47 PM PELLETIZER OPERATOR Diagnosis unknown documented in this encounter Results * CT Body Outside Reference (03/27/2019 6:47 PM PELLETIZER OPERATOR) Impressions [facility] - 03/27/2019 6:47 PM PELLETIZER OPERATOR These images are for Reference purposes only and have not been reviewed by [facility] Radiology. ??There will be no report generated by a [facility] Radiologist. Narrative RAD_[facility] - 03/27/2019 6:47 PM PELLETIZER OPERATOR EXAMINATION: ??Images For Reference Purposes Only us Da Hodge MD IMG CT PROCEDURES Final Result [facility] documented in this encounter Visit Diagnoses Not on filedocumented in this encounter Care Teams Upholsterer Assembly Line Relationship Specialty Start Date End Date Janine Terry MD [address] [place] [address] PCP - General Family Medicine 03/06/19 01/19/22 Adam English DO [address] [place] [address] Source Inspector Gastroenterology 03/26/19 06/05/23 documented as of this encounter
--- OUTSIDE RECORDS SUMMARY | 2024-05-20 13:10 | XMS_ITS | Encounter Summary ---
Author Organization [facility] Address [address] [facility] [address] [place] [address] Phone Care Team Providers Care Graphic Artist Name Role Phone Janine Terry MD Primary Care Provider [phone] Adam English DO Unavailable [phone] Reason for Visit * Reason Comments Diverticulitis Encounter Details Date Type Department Care Team (Latest Contact Info) Description 06/11/2019 8:15 AM TERMITE CONTROL REPRESENTATIVE Office Visit [facility] Surgery [address] [facility] Advanced Medicine [address]th [place] [address] [place] [address] Da Hodge MD [address] [facility] [phone] [place] [address] Diverticulitis (Primary Dx) Social History Tobacco Use Types Packs/Day Years Used Date Smoking Tobacco: Never Smokeless Tobacco: Never Alcohol Use Standard Drinks/Week Comments Not Currently 0 (1 standard drink = 0.6 oz pur e alcohol) Comments No Sex and Gender Information Value Date Recorded Sex Assigned at Not on file Legal Sex Female 2:22 AM TERMITE CONTROL REPRESENTATIVE Gender Identity Female 05/18/2019 7:17 PM TERMITE CONTROL REPRESENTATIVE Sexual Orientation Straight 05/18/2019 7: 17 PM TERMITE CONTROL REPRESENTATIVE documented as of this encounter Last Filed Vital Signs Vital Sign Reading Time Taken Comments Blood Pressure 141/87 06/11/2019 7:57 AM TERMITE CONTROL REPRESENTATIVE Pulse 102 06/11/2019 7:57 AM TERMITE CONTROL REPRESENTATIVE Temperature 36.8 ??C (98.2 ??F) 06/11/2019 7:57 AM CS T Respiratory Rate - - Oxygen Saturation - - Inhaled Oxygen Concentration - - Weight 132.3 kg (291 lb 9.6 oz) 06/11/2019 7:57 AM TERMITE CONTROL REPRESENTATIVE Height 177.8 cm (5' 10 ) 06/11/2019 7:57 AM TERMITE CONTROL REPRESENTATIVE Body Mass Index 41.84 06/11/2019 7:57 AM TERMITE CONTROL REPRESENTATIVE documented in this encounter Progress Notes * Da Hodge MD - 06/11/2019 8:15 AM CST Colorectal Post-operative Visit Patient ID: Josy Fiore is a 59 y.o. female who is eight weeks out from sigmoid colectomy for diverticulitis. We have been following her for a slow healing wound. She has been packing it until lastweek. She is doing well otherwise. She called in the middle of last week with a burning pain aroundher incision that was short-lived and went away on its own. Physical Exam: Her wounds are all well healed. Assessment and Plan: Ms. Fiore is doing well. I am going to release her back to work next week. She is going to follow with us for her next colonoscopy which is in about two years. 06/11/2019 Da Hodge MD ITE CONTROL REPRESENTATIVE documented in this encounter Plan of Treatment Not on file documented as of this encounter Visit Diagnoses Diagnosis Diverticulitis- Primary Diverticulitis of colon (without mention of hemorrhage) documented in this encounter Historical Medications * This list may reflect changes made after this encounter. soy isofla/blk cohosh/mag bark (ESTROVEN ORAL) Take by mouth Unsure med dosage every day hs 10/24/2023 gabapentin (NEURONTIN) 100 mg capsule Take by mouth 3 (three) times a day 05/24/2021 added in this encounter Care Teams Graphic Artist Relationship Specialty Start Date End Date Janine Terry MD [address] [place] [address] PCP - General Family Medicine 03/06/19 01/19/22 Adam English DO [address] [place] [address] Supervisor Pre Wave Gastroenterology 03/26/19 06/05/23 documented as of this encounter
--- OUTSIDE RECORDS SUMMARY | 2024-05-20 13:10 | XMS_ITS | Encounter Summary ---
Author Organization [facility] Healthcare Address [address] [place] [address] Care Team Providers Care Heel Reducer Name Role Phone Janine Terry MD Primary Care Provider [phone] Adam English DO Unavailable [phone] Encounter Details Date Type Department Care Team (Latest Contact Info) Description 02/18/2020 9:18 AM CDT - 02/18/2020 11:59 PM CDT Hospital Encounter [facility]) [address] [place] [id number] Discharge Disposition: Discharge to home or self care Social History Tobacco Use Types Packs/Day Years Used Date Smoking Tobacco: Never Smokeless Tobacco: Never Alcohol Use Standard Drinks/Week Comments Not Currently 0 (1 standard drink = 0.6 oz pur e alcohol) Comments No Sex and Gender Information Value Date Recorded Sex Assigned at Not on file Legal Sex Female 2:22 AM SPACE PLANNER Gender Identity Female 05/18/2019 7:17 PM SPACE PLANNER Sexual Orientation Straight 05/18/2019 7: 17 PM SPACE PLANNER documented as of this encounter Medications at Time of Discharge ALPRAZolam (XANAX) 0.25 mg tablet Take 1 tablet (0.25 mg total) by mouth 3 (three) times a day as needed for anxiety acetaminophen (TYLENOL) 500 mg tablet Take 1,000 mg by mouth every 6 (six) hours as needed for pain 2 hxkqagk-clyzahmhz-be nc tablet Take 1 tablet by mouth [...] Comments BREAST IMAGING OUTSIDE REFERENCE Routine 02/18/2020 9:18 AM CDT documented in this encounter Results * Breast Imaging Outside Reference (02/18/2020 9:18 AM CDT) Impressions RAD_[facility] - 02/18/2020 9:18 AM CDT These images are for Reference purposes only and have not been reviewed by [facility] Radiology. ??There will be no report generated by a [facility] Radiologist. Narrative [facility] - 02/18/2020 9:18 AM CDT EXAMINATION: ??Images For Reference Purposes Only us Physician No IMG MAMMO PROCEDURES Final Resul t [facility] documented in this encounter Visit Diagnoses Not on filedocumented in this encounter Care Teams Heel Reducer Relationship Specialty Start Date End Date Janine Terry MD [address] [place] [address] PCP - General Family Medicine 03/06/19 01/19/22 Adam English DO [address] [place] [address] Curb And Gutter Laborer Gastroenterology 03/26/19 06/05/23 documented as of this encounter
--- OUTSIDE RECORDS SUMMARY | 2024-05-20 13:10 | XMS_ITS | Encounter Summary ---
Author Organization [facility] Healthcare Address [address] [place] [address] Care Team Providers Care Epic Interface Analyst Name Role Phone Janine Terry MD Primary Care Provider [phone] Adam English DO Unavailable [phone] Reason for Visit * Reason Onset Date Comments Telephone encounter 04/26/2019 Encounter Details Date Type Department Care Team (Late st Contact Info) Description 04/26/2019 Documentation [facility] Surgeon [address] [place] [address] Chrissie Francisco MD [address] [facility] [phone] [place] [address] Telephone encounter Social History Tobacco Use Types Packs/Day Years Used Date Smoking Tobacco: Never Smokeless Tobacco: Never Alcohol Use Standard Drinks/Week Comments Not Currently 0 (1 standard drink = 0.6 oz pur e alcohol) Comments No Sex and Gender Information Value Date Recorded Sex Assigned at Not on file Legal Sex Female 2:22 AM SUPPLY CLERK Gender Identity Female 05/18/2019 7:17 PM SUPPLY CLERK Sexual Orientation Straight 05/18/2019 7: 17 PM SUPPLY CLERK documented as of this encounter Progress Notes * Chrissie Francisco MD - 04/26/2019 10:02 PM CST Ms. Fiore called to say that she had serous drainage from her Pfannenstiel wound. It was serosanguinous and not purulent and she has no overlying skin changes. She denies feeling a bulge or 'pop' sensation and otherwise feels well. We discussed that this is most likely a seroma that evacuated but also discussed warning signs for wound infection or dehiscence, but her description sounds more consistent with draining seroma. All questions answered. She will follow up accordingly. LY CLERK documented in this encounter Plan of Treatment Not on file documented as of this encounter Visit Diagnoses Not on filedocumented in this encounter Care Teams Epic Interface Analyst Relationship Specialty Start Date End Date Janine Terry MD [address] [place] [address] PCP - General Family Medicine 03/06/19 01/19/22 Adam English DO [address] [place] [address] [place] Gastroenterology 03/26/19 06/05/23 documented as of this encounter
--- OUTSIDE RECORDS SUMMARY | 2024-05-20 13:10 | XMS_ITS | Encounter Summary ---
Author Organization [facility] Healthcare Address [address] [place] [address] Care Team Providers Care Retread Builder Name Role Phone Janine Terry MD Primary Care Provider [phone] Adam English DO Unavailable [phone] Encounter Details Date Type Department Care Team (Late st Contact Info) Description 02/13/2021 8:30 AM CDT Lab [facility] Lab [address] [place] [id number] Social History Tobacco Use Types Packs/Day Years Used Date Smoking Tobacco: Never Smokeless Tobacco: Never Alcohol Use Standard Drinks/Week Comments Not Currently 0 (1 standard drink = 0.6 oz pur e alcohol) Comments No Sex and Gender Information Value Date Recorded Sex Assigned at Not on file Legal Sex Female 2:22 AM APARTMENT COORDINATOR Gender Identity Female 05/18/2019 7:17 PM APARTMENT COORDINATOR Sexual Orientation Straight 05/18/2019 7: 17 PM APARTMENT COORDINATOR documented as of this encounter Plan of Treatment Not on file documented as of this encounter Procedures Procedure Name Priority Date/Time Associated Diagnosis Comments EGFR Routine 02/13/2021 8:38 AM CDT DIFFERENTIAL AUTO Routine 02/13/2021 8:3 8 AM CDT CBC WITH AUTO DIFFERENTIAL Routine 02/13/2021 8:38 AM CDT TSH Routine 02/13/2021 8:38 AM CDT T4, FREE Routine 02/13/2021 8:38 AM CDT HEMOGLOBIN A1C Routine 02/13/2021 8:38 AM CDT LIPID PANEL Routine 02/13/2021 8:38 AM CDT COMPREHENSIVE METABOLIC PANEL Routine 02/13/2021 8:38 AM CDT documented in this encounter Results * eGFR (02/13/2021 8:38 AM CDT) [facility] Signature eGFR 78 mL/min/1.7 3 m2 BRITTANY CERNA Comment: Interpretive Data Reference Interval Normal ?>/= 90 mL/min/1.73m2 Mildly decreased* ? 60 - 89 mL/min/1.73m2 Mildly to moderately decreased ?45 - 59 mL/min/1.73m2 Moderately to severely decreased ??30 - 44 mL/min/1.73m2 Severely decreased ?15 - 29 mL/min/1.73m2 Kidney Failure ?< 15 ??mL/min/1.73m2 *Relative to young adult level Estimated glomerular filtration rate is determined by the CKD-EPI equation recommended by the National Kidney Foundation (KDIGO 2012 Clinical Practice Guideline for the Evaluation and Management of Chronic Kidney Disease. Kidney Intnl Suppl May 2012;3:1). The CKD-EPI equation should not be used for patients with unstable renal function and has not been validated in children and those over 70. Current interpretive data was last reviewed 2020 Testing performed by: [facility], [address] [place] [address], [place]., [address] Blood 02/13/2021 8:38 AM CDT 02/13/2021 9:42 AM CDT us K Geoffrey Terry MD LAB BLOOD ORDERABLES Final Resul t BRITTANY [address] [facility] Department [place] [address] * Differential, auto (02/13/2021 8:38 AM CDT) Neutrophil abs 3.1 1.7 - 6.5 K/cumm BRITTANY Comment:Testing performed by : [address] [address] Imm gran abs 0.0 0.0 - 0.1 K/cumm BRTITANY Comment:Testing performed by : [address] [address] Lymphocyte abs 2.6 0.8 - 3.3 K/cumm BRITTANY Comment:Testing performed by : [address] [address] Monocyte abs 0.5 0.2 - 0.8 K/cumm BRITTANY Comment:Testing performed by : [address] [address] Eosinophil abs 0.2 0.0 - 0.5 K/cumm BRITTANY Comment:Testing performed by : [address] [address] Basophil abs 0.1 0.0 - 0.1 K/cumm BRITTANY Comment:Testing performed by : [address] [address] Neutrophil pct 48.6 % BRITTANY Comment: Interpretive Data Percent cell count reference ranges are not reported, since discordance with absolute values may lead to misinterpretation of CBC data. Current Interpretive Data was last revised on 2017. Testing performed by: [address] [address] Imm gran pct 0.2 % BRITTANY Comment: Interpretive Data Percent cell count reference ranges are not reported, since discordance with absolute values may lead to misinterpretation of CBC data. Current Interpretive Data was last revised on 2017. Testing performed by: [address] [address] Lymphocyte pct 40.6 % CERNER Comment: Interpretive Data Percent cell count reference ranges are not reported, since discordance with absolute values may lead to misinterpretation of CBC data. Current Interpretive Data was last revised on 2017. Testing performed by: [address] [address] Monocyte pct 7.3 % BRITTANY Comment: Interpretive Data Percent cell count reference ranges are not reported, since discordance with absolute values may lead to misinterpretation of CBC data. Current Interpretive Data was last revised on 2017. Testing performed by: [address] [address] Eosinophil pct 2.5 % BRITTANY Comment: Interpretive Data Percent cell count reference ranges are not reported, since discordance with absolute values may lead to misinterpretation of CBC data. Current Interpretive Data was last revised on 2017. Testing performed by: [address] [address] Basophil pct 0.8 % BRITTANY Comment: Interpretive Data Percent cell count reference ranges are not reported, since discordance with absolute values may lead to misinterpretation of CBC data. Current Interpretive Data was last revised on 2017. Testing performed by: [address] [address] Blood 02/13/2021 8:38 AM CDT 02/13/2021 9:44 AM CDT K Geoffrey Terry MD LAB BLOOD ORDERABLES Final Resul t [facility] [address] [facility] Department of Laboratories [place], [place] [id number] * T4, free (02/13/2021 8:38 AM CDT) Free T4 1.21 0.90 - 1.70 ng/dL BRITTANY Comment:Testing performed by : [address] [address] Blood 02/13/2021 8:38 AM CDT 02/13/2021 9:42 AM CDT us K Geoffrey Terry MD LAB BLOOD ORDERABLES Final Resul t BRITTANY [address] [facility] Department [place] [address] * Comprehensive metabolic panel (02/13/2021 8:38 AM CDT) Sodium 139 135 - 145 mmol/L BRITTANY Comment:Testing performed by : [address] [address] Potassium, pl 4.1 3.3 - 4.9 mmol/L BRITTANY Comment:Testing performed by : [address] [address] Chloride 101 97 - 110 mmol/L BRITTANY Comment:Testing performed by : [address] [address] CO2 29 22 - 32 mmol/L BRITTANY Comment:Testing performed by : [address] [address] Anion gap 9 2 - 15 mmol/L BRITTANY Comment:Testing performed by : [address] [address] BUN 21 8 - 25 mg/dL BRITTANY Comment:Testing performed by : [address] [address] Creatinine 0.80 0.60 - 1.10 mg/dL BRITTANY Comment:Testing performed by : [address] [address] Glucose 94 70 - 199 mg/dL BRITTANY Comment: Interpretive [...] Current interpretive data was last revised 2017. Testing performed by: [address] [address] Calcium 9.4 8.5 - 10.3 mg/dL BRITTANY Comment:Testing performed by : [address] [address] Bilirubin, total 0.6 0.1 - 1.2 mg/dL BRITTANY Comment:Testing performed by : [address] [address] Protein, pl 7.2 6.5 - 8.5 g/dL BRITTANY Comment:Testing performed by : [address] [address] Albumin 4.1 3.5 - 5.0 g/dL BRITTANY Comment:Testing performed by : [address] [address] Alk phos 47 40 - 130 Units/L BRITTANY Comment:Testing performed by : [address] [address] ALT 24 7 - 45 Units/L BRITTANY Comment:Testing performed by : [address] [address] AST 23 10 - 45 Units/L BRITTANY Comment:Testing performed by : [address] [address] Blood 02/13/2021 8:38 AM CDT 02/13/2021 9:42 AM CDT K Geoffrey Terry MD LAB BLOOD ORDERABLES Final Resul t BRITTANY [address] [facility] Department of Laboratories [place], [place] [id number] * TSH (02/13/2021 8:38 AM CDT) Thyroid Stimulating Hormone 2.27 0.30 - 4.20 mcIUnit/mL BRITTANY Comment:Testing performed by : [address] [address] Blood 02/13/2021 8:38 AM CDT 02/13/2021 9:42 AM CDT Janine Terry MD LAB BLOOD ORDERABLES Final Resul t Performing Organization Address [facility] de Phone Number BRITTANY [address] [place] [address] * (ABNORMAL) Hemoglobin A1c (02/13/2021 8:38 AM CDT) Hgb A1C 5.7(H) 4.0 - 5.6 % BRITTANY Comment:Testing performed by : [address] [address] Estimated Average Glucose 117 mg/dL BRITTANY Comment: The ADA recommends reporting an estimated Average Glucose (eAG) with all Hemoglobin A1c results using the equation derived from a study of 507 normal and diabetic adults. ??Minority populations were underrepresented and children were not included. ?? (Diabetes Care 31:6639-6771, 2008). ??The eAG is not equivalent to a fasting glucose. Testing performed by: [facility], [address] [place] [address]., [address] Blood 02/13/2021 8:38 AM CDT 02/13/2021 9:44 AM CDT Janine Terry MD LAB BLOOD ORDERABLES Final Resul t Performing Organization Address [facility] de Phone Number [facility] [address] [place] [address] * Lipid panel (02/13/2021 8:38 AM CDT) Cholesterol 176 30 - 199 mg/dL BRITTANY Comment: Interpretive [...] Interpretive Data was last revised on 2018. Testing performed by: [address] [address] Triglycerides 99 <=149 mg/dL BRITTANY Comment: Interpretive Data Ages < [...] Interpretive Data was last revised on 2018. Testing performed by: [address] [address] HDL 51 >=40 mg/dL BRITTANY Comment: Interpretive Data Ages [...] Interpretive Data was last revised on 2018. Testing performed by: [address] [address] LDL, calculated 105 <=129 mg/dL BRITTANY Comment: Interpretive Data Ages [...] Interpretive Data was last revised on 2018. Testing performed by: [address] [address] Non-HDL Cholesterol 125 mg/dL [facility] Comment: Interpretive Data Ages < or = [...] Interpretive Data was last revised on 2018. Testing performed by: [address] [address] Chol/HDL ratio 3 BRITTANY CERNA Comment:Testing performed by : [address] [address] Blood 02/13/2021 8:38 AM CDT 02/13/2021 9:42 AM CDT us K Geoffrey Terry MD LAB BLOOD ORDERABLES Final Resul t BRITTANY [address] [facility] Department [place] [address] * CBC with auto differential (02/13/2021 8:38 AM CDT) WBC 6.3 3.8 - 9.9 K/cumm BRITTANY CERNA Comment:Testing performed by : [address] [address] Hgb 13.9 11.9 - 15.5 g/dL BRITTANY CERNA Comment:Testing performed by : [address] [address] Hct 41.0 35.6 - 45.5 % BRITTANY Comment:Testing performed by : [address] [address] Plt 254 150 - 400 K/cumm BRITTANY Comment:Testing performed by : [address] [address] MPV 11.2 9.1 - 12.3 fL BRITTANY CERNA Comment:Testing performed by : [address] [address] RBC 4.52 3.90 - 5.20 M/cumm BRITTANY CERNA Comment:Testing performed by : [address] [address] MCV 90.7 81.3 - 96.4 fL BRITTANY Comment:Testing performed by : [address] [address] MCH 30.8 27.1 - 33.3 pg BRITTANY CERNA Comment:Testing performed by : [address] [address] MCHC 33.9 32.3 - 35.7 g/dL BRITTANY CERNA Comment:Testing performed by : [facility], [address] [place] [address]., [address] RDW CV 12.8 11.1 - 14.9 % BRITTANY Comment:Testing performed by : [address] [address] RDW SD 42.5 35.7 - 48.1 fL BRITTANY Comment:Testing performed by : [address] [address] NRBC abs 0.00 0.00 - 0.01 K/cumm BRITTANY Comment:Testing performed by : [facility], [address] [place] [address]., [address] Blood 02/13/2021 8:38 AM CDT 02/13/2021 9:44 AM CDT Janine Terry MD LAB BLOOD ORDERABLES Final Resul t Performing Organization Address City/State/[facility] Co de Phone Number BRITTANY [facility] Department [place] [address] documented in this encounter Visit Diagnoses Not on filedocumented in this encounter Care Teams Retread Builder Relationship Specialty Start Date End Date Janine Terry MD [address] [place] [address] PCP - General Family Medicine 03/06/19 01/19/22 Adam English DO [address] [place] [address] Pocket Builder Gastroenterology 03/26/19 06/05/23 documented as of this encounter
--- OUTSIDE RECORDS SUMMARY | 2024-05-20 13:10 | XMS_ITS | Encounter Summary ---
Author Organization [facility] Address [address] [place] [address] Phone Care Team Providers Care Loan Secretary Name Role Phone Janine Terry MD Primary Care Provider [phone] Adam English DO Unavailable [phone] Encounter Details Date Type Department Care Team (Late st Contact Info) Description 12/18/2020 Orders Only [facility] Orthopaedic Surgery [address] [facility] 2nd Floor [address] [place] [address] Jordon Gallo MD [address] [facility] [address] [place] [address] Social History Tobacco Use Types Packs/Day Years Used Date Smoking Tobacco: Never Smokeless Tobacco: Never Alcohol Use Standard Drinks/Week Comments Not Currently 0 (1 standard drink = 0.6 oz pur e alcohol) Comments No Sex and Gender Information Value Date Recorded Sex Assigned at Not on file Legal Sex Female 2:22 AM PRODUCTION SUPV Gender Identity Female 05/18/2019 7:17 PM PRODUCTION SUPV Sexual Orientation Straight 05/18/2019 7: 17 PM PRODUCTION SUPV documented as of this encounter Plan of Treatment Not on file documented as of this encounter Visit Diagnoses Not on filedocumented in this encounter Care Teams Loan Secretary Relationship Specialty Start Date End Date Janine Terry MD [address] [place] [address] PCP - General Family Medicine 03/06/19 01/19/22 Adam English DO [address] [place] [address] Respiratory Care Practitioner Gastroenterology 03/26/19 06/05/23 documented as of this encounter
--- OUTSIDE RECORDS SUMMARY | 2024-05-20 13:10 | XMS_ITS | Encounter Summary ---
Author Organization [facility] Facility Care Team Providers Care Icing And Glaze Maker Name Role Phone Janine Terry MD Primary Care Provider [phone] Adam English DO Unavailable [phone] Encounter Details Date Type Department Care Team (Latest Contact Info) Description 04/03/2019 Travel Social History Tobacco Use Types Packs/Day Years Used Date Smoking Tobacco: Never Smokeless Tobacco: Never Alcohol Use Standard Drinks/Week Comments Not Currently 0 (1 standard drink = 0.6 oz pur e alcohol) Comments Unknown Sex and Gender Information Value Date Recorded Sex Assigned at Not on file Legal Sex Female 2:22 AM PROFESSOR OF GEOLOGY Gender Identity Female 05/18/2019 7:17 PM PROFESSOR OF GEOLOGY Sexual Orientation Straight 05/18/2019 7: 17 PM PROFESSOR OF GEOLOGY documented as of this encounter Plan of Treatment Not on file documented as of this encounter Visit Diagnoses Not on filedocumented in this encounter Care Teams Icing And Glaze Maker Relationship Specialty Start Date End Date Janine Terry MD [address] [place] [address] PCP - General Family Medicine 03/06/19 01/19/22 Adam English DO [address] [place] [address] Career Development Manager Gastroenterology 03/26/19 06/05/23 documented as of this encounter
--- OUTSIDE RECORDS SUMMARY | 2024-05-20 13:10 | XMS_ITS | Encounter Summary ---
Author Organization [facility] Address [address] [place] [address] Phone Care Team Providers Care Hot Top Liner Helper Name Role Phone Janine Terry MD Primary Care Provider [phone] Adam English DO Unavailable [phone] Reason for Visit * Reason Onset Date Comments Med Management 12/18/2020 Encounter Details Date Type Department Care Team (Late st Contact Info) Description 12/18/2020 Telephone [facility] Orthopaedic Surgery [address] [place] [address] Jordon Gallo MD [address] [facility] [address] [place], [place] [id number] Med Management Social History Tobacco Use Types Packs/Day Years Used Date Smoking Tobacco: Never Smokeless Tobacco: Never Alcohol Use Standard Drinks/Week Comments Not Currently 0 (1 standard drink = 0.6 oz pur e alcohol) Comments No Sex and Gender Information Value Date Recorded Sex Assigned at Not on file Legal Sex Female 2:22 AM SENIOR FOREMAN Gender Identity Female 05/18/2019 7:17 PM SENIOR FOREMAN Sexual Orientation Straight 05/18/2019 7: 17 PM SENIOR FOREMAN documented as of this encounter Miscellaneous Notes * Telephone Encounter - Yina Morgan RMA - 12/18/2020 5:27 PM CDT Medication was called to pharm I called pt to inform her of this Pt Stated Thanks Gabapentin 300 mg 1 PO QHS * Telephone Encounter - Bernabe Dumont - 12/18/2020 9:39 AM CDT Pt was seen yesterday, gabapentin Rx was never sent to pharmacy. Send to [facility] on file. Pt is at [phone]. documented in this encounter Plan of Treatment Not on file documented as of this encounter Visit Diagnoses Not on filedocumented in this encounter Care Teams Hot Top Liner Helper Relationship Specialty Start Date End Date Janine Terry MD [address] [place] [address] PCP - General Family Medicine 03/06/19 01/19/22 Adam English DO [address] [address] Loading And Unloading Supervisor Gastroenterology 03/26/19 06/05/23 documented as of this encounter
--- OUTSIDE RECORDS SUMMARY | 2024-05-20 13:10 | XMS_ITS | Encounter Summary ---
Author Organization [facility] Address [address] [place] [address] Phone Care Team Providers Care Flatwork Tier Name Role Phone Janine Terry MD Primary Care Provider [phone] Adam English DO Unavailable [phone] Reason for Visit * Reason Onset Date Comments [place] 05/21/2019 Encounter Details Date Type Department Care Team (Late st Contact Info) Description 05/21/2019 Telephone [facility] Surgery [address] [place] [address] Matilda Webb RMA [facility] Social History Tobacco Use Types Packs/Day Years Used Date Smoking Tobacco: Never Smokeless Tobacco: Never Alcohol Use Standard Drinks/Week Comments Not Currently 0 (1 standard drink = 0.6 oz pur e alcohol) Comments No Sex and Gender Information Value Date Recorded Sex Assigned at Not on file Legal Sex Female 2:22 AM BENCH GRINDER Gender Identity Female 05/18/2019 7:17 PM BENCH GRINDER Sexual Orientation Straight 05/18/2019 7: 17 PM BENCH GRINDER documented as of this encounter Miscellaneous Notes * Telephone Encounter - Matilda Webb RMA - 05/21/2019 4:51 PM CST Patient left a message stating that after today's follow-up visit, she is extending her work leave until her next wound check (which is 06/11/2019.) She said she is notifying her company and we may receive additional [facility] paperwork to complete. Patient provided number of [phone] for questions or concerns. H GRINDER documented in this encounter Plan of Treatment Not on file documented as of this encounter Visit Diagnoses Not on filedocumented in this encounter Care Teams Flatwork Tier Relationship Specialty Start Date End Date Janine Terry MD [address] [id number] PCP - General Family Medicine 03/06/19 01/19/22 Adam English DO [address] [place] [address] Digital Archivist Gastroenterology 03/26/19 06/05/23 documented as of this encounter
--- OUTSIDE RECORDS SUMMARY | 2024-05-20 13:10 | XMS_ITS | Encounter Summary ---
Author Organization [facility] Facility Care Team Providers Care Rejogger Name Role Phone Janine Terry MD Primary Care Provider [phone] Adam English DO Unavailable [phone] Encounter Details Date Type Department Care Team (Latest Contact Info) Description 04/18/2019 Travel Social History Tobacco Use Types Packs/Day Years Used Date Smoking Tobacco: Never Smokeless Tobacco: Never Alcohol Use Standard Drinks/Week Comments Not Currently 0 (1 standard drink = 0.6 oz pur e alcohol) Comments No Sex and Gender Information Value Date Recorded Sex Assigned at Not on file Legal Sex Female 2:22 AM ARRESTING GEAR OPERATOR Gender Identity Female 05/18/2019 7:17 PM ARRESTING GEAR OPERATOR Sexual Orientation Straight 05/18/2019 7: 17 PM ARRESTING GEAR OPERATOR documented as of this encounter Plan of Treatment Not on file documented as of this encounter Visit Diagnoses Not on filedocumented in this encounter Care Teams Rejogger Relationship Specialty Start Date End Date Janine Terry MD [address] [place] [address] PCP - General Family Medicine 03/06/19 01/19/22 Adam English DO [address] [place] [address] Customer Solutions Architect Gastroenterology 03/26/19 06/05/23 documented as of this encounter
--- OUTSIDE RECORDS SUMMARY | 2024-05-20 13:10 | XMS_ITS | Encounter Summary ---
Author Organization [facility] Address [address] [place] [address] Phone Care Team Providers Care Party Supply Specialist Name Role Phone Janine Terry MD Primary Care Provider [phone] Adam English DO Unavailable [phone] Reason for Visit * Reason Onset Date Comments Discharge follow up 04/23/2019 Encounter Details Date Type Department Care Team (Late st Contact Info) Description 04/23/2019 Telephone [facility] Surgery Pending sale to [facility] 8th [place] [address] [place] [address] Silvia Velez LPN Discharge follow up Social History Tobacco Use Types Packs/Day Years Used Date Smoking Tobacco: Never Smokeless Tobacco: Never Alcohol Use Standard Drinks/Week Comments Not Currently 0 (1 standard drink = 0.6 oz pur e alcohol) Comments No Sex and Gender Information Value Date Recorded Sex Assigned at Not on file Legal Sex Female 2:22 AM BILLING COORDINATOR Gender Identity Female 05/18/2019 7:17 PM BILLING COORDINATOR Sexual Orientation Straight 05/18/2019 7: 17 PM BILLING COORDINATOR documented as of this encounter Miscellaneous Notes * Telephone Encounter - Silvia Nguyen LPN - 04/23/2019 11:40 AM CST Patient is 5 days s/p lap sigmoid resection. Patient reports pain is well managed with OTC pain medication. Having soft bowel movements since discharge. Patient reports moderate po intake. Drinking adequate amount of fluids per day. Denies nausea/vomit. No complaints of discomfort at procedure site. She is requesting a refill on her diflucan as she believes she has a yeast infection. She is going to call her PCP for a refill. Patient plans to keep scheduled follow up in one month. They will call sooner should problems arise. Provided patient with office and exchange phone number. ING COORDINATOR documented in this encounter Plan of Treatment Not on file documented as of this encounter Visit Diagnoses Not on filedocumented in this encounter Care Teams Party Supply Specialist Relationship Specialty Start Date End Date Janine Terry MD [address] [place] [address] PCP - General Family Medicine 03/06/19 01/19/22 Adam English DO [address] [place] [address] Pattern Technician Gastroenterology 03/26/19 06/05/23 documented as of this encounter
--- OUTSIDE RECORDS SUMMARY | 2024-05-20 13:10 | XMS_ITS | Encounter Summary ---
Author Organization [facility] Address [address] [facility] [address] [place] [address] Phone Care Team Providers Care Fabric Worker Name Role Phone Janine Terry MD Primary Care Provider [phone] Adam English DO Unavailable [phone] Reason for Visit * Reason Comments New Patient Diverticulitis Encounter Details Date Type Department Care Team (Latest Contact Info) Description 03/26/2019 10:00 AM MANUSCRIPTS ARCHIVIST Office Visit [facility] Surgery [address] [place] [address] [place] [address] Da Hodge MD [phone] [place] [address] Diverticulitis (Primary Dx) Social History Tobacco Use Types Packs/Day Years Used Date Smoking Tobacco: Never Comments Unknown Sex and Gender Information Value Date Recorded Sex Assigned at Not on file Legal Sex Female 2:22 AM MANUSCRIPTS ARCHIVIST Gender Identity Female 05/18/2019 7:17 PM MANUSCRIPTS ARCHIVIST Sexual Orientation Straight 05/18/2019 7: 17 PM MANUSCRIPTS ARCHIVIST documented as of this encounter Last Filed Vital Signs Vital Sign Reading Time Taken Comments Blood Pressure 134/88 03/26/2019 9:55 AM MANUSCRIPTS ARCHIVIST Pulse 91 03/26/2019 9:55 AM MANUSCRIPTS ARCHIVIST Temperature 36.8 ??C (98.3 ??F) 03/26/2019 9:55 AM CS T Respiratory Rate - - Oxygen Saturation - - Inhaled Oxygen Concentration - - Weight 132.5 kg (292 lb 3.2 oz) 03/26/2019 9:55 AM MANUSCRIPTS ARCHIVIST Height 177.8 cm (5' 10 ) 03/26/2019 9:55 AM MANUSCRIPTS ARCHIVIST Body Mass Index 41.93 03/26/2019 9:55 AM MANUSCRIPTS ARCHIVIST documented in this encounter Ordered Prescriptions Prescription Sig Dispense Quantity Refills Last Filled Start Date End Date metroNIDAZOLE (FLAGYL) 500 mg tablet Take one tablet at 1:00pm, 2:00pm, and 10:00pm day prior to surgery 3 tablet 03/27/2019 9 neomycin (MYCIFRADIN) 500 mg tablet Take two tablets by mouth at 1pm, 2pm, and 10pm the day before surgery 6 tablet 03/27/2019 9 ondansetron (ZOFRAN) 8 mg tablet Take one tablet at 11:00am with miralax bowel prep. Take one tablet 8 hours for nausea. 4 tablet 03/27/2019 9 documented in this encounter Progress Notes * Da Hodge MD - 03/26/2019 10:00 AM CST Colorectal Surgery Consultation Consult requested by Janine Terry MD for New Patient (Diverticulitis) . Chief Complaint: Josy Fiore is a 59 y.o. female with chief complaint of New Patient (Diverticulitis) . HPI: Josy Fiore is a 59 y.o. female who has had several attacks of diverticulitis. She has never been admitted. All of been managed as outpatient. In total, it sounds like she has had five attacks but she has had three in the last year, with increasing frequency and intensity. She has had two colono scopies in the last two years. She had a tubular adenoma on her 2017 colonoscopy and the normal scope this year. She has a strong family history of colon cancer. Her surgical history includes a lap choly and multiple pelvic procedures for ovarian masses and the hysterectomy. There were all done laparoscopically. She does not have any medical issues. Review of Systems: All other systems negative except as per HPI and scanned media Physical exam: Constellation: No apparent distress. Head: Normocephalic, atraumatic Eyes: Anicteric, extraocular movements intact Ears, mouth and nose: Normal Neurologic: Non-focal motor function Pulmonary: Non-labored breathing, no audible wheezing Integumentary: No rashes Musculoskeletal: No gross bony deformities Gastrointestinal: Her abdomen is obese but soft. She has well-healed laparoscopic scars and no masses or tenderness Assessment and Plan: Josy Fiore is a 59 y.o. female with recurrent diverticulitis. We discussed treatment. I told her that while surgery was not necessary, that she certainly met indications. We discussed the surgery at length. I think we can do this as a laparoscopic procedure. We discussed the risks including but not limited to bleeding, infection, anastomotic leak, damage to other organs, medical complications, and the remote but real possibility of perioperative . She understands and wants to talk to her before scheduling. I would like to have ureteral stents placed if we do proceed with surgery. Da Hodge MD 03/26/2019 10:40 AM SCRIPTS ARCHIVIST documented in this encounter Plan of Treatment Not on file documented as of this encounter Visit Diagnoses Diagnosis Diverticulitis- Primary Diverticulitis of colon (without mention of hemorrhage) documented in this encounter Discontinued Medications Medication Sig Discontinue Reason Start Date End Da te cetirizine (ZyrTEC) 10 mg tablet Take 10 mg by mouth daily Patient Discharge 03/26/2019 dicyclomine (BENTYL) 20 mg tablet TK 1 T PO TID PRF ABD CRAMPS Patient Discharge 02/23/2019 03/26/2019 DOXYCYCLINE HYCLATE 100 mg capsule TK 1 C PO BID Patient Discharge 02/23/2019 03/26/2019 levoFLOXacin (LEVAQUIN) 750 mg tablet TK 1 T PO D Patient Discharge 02/23/2019 03/26/2019 metroNIDAZOLE (FLAGYL) 500 mg tablet Take 500 mg by mouth 3 times daily Patient Discharge 08/15/2018 03/26/2019 ondansetron ODT (ZOFRAN-ODT) 4 mg disintegrating tablet DISSOLVE 1 TABLETS ON TONGUE EVERY 6 TO 8 HOURS NEEDED FOR NAUSE. Patient Discharge 02/23/2019 03/26/2019 SUMAtriptan (IMITREX) 100 mg tablet Take 100 mg by mouth daily as needed Patient Discharge 03/26/2019 documented as of this encounter Historical Medications * This list may reflect changes made after this encounter. L gasseri/B bifidum/B longum (KUHN' COLON HEALTH ORAL) Take 1 tablet by mouth every morning Colon Health every day unsure med dosage 11/24/2022 psyllium husk (METAMUCIL ORAL) Take 6 Caplet by mouth every morning 6 caps am 10/24/2023 calcium-magnesium -zinc tablet Take 1 tablet by mouth nightly 1000mg/400mg/ 15mg every day 11/24/2022 vitamin E 400 unit capsule Take 400 Units by mouth nightly hs 04/20/2019 lutein 20 mg tablet Take 1 tablet by mouth nightly hs 11/24/2022 soy isofla/blk cohosh/mag bark (ESTROVEN ORAL) Take 1 tablet by mouth nightly Unsure med dosage hs 04/20/2019 aspirin 325 mg tabletIndications :prevention of thrombosis Take 325 mg by mouth nightly 05/21/2019 nitrofurantoin monohydrate (MACROBID) 100 mg capsule TK 1 C PO Q 12 H FOR 7 DAYS WITH FOOD AND MEALS 0 03/22/2019 04/03/2019 fluconazole (DIFLUCAN) 150 mg tablet Take 150 mg by mouth as needed 0 03/19/2019 05/21/2019 added in this encounter Care Teams Fabric Worker Relationship Specialty Start Date End Date Janine Terry MD [address] [place] [address] PCP - General Family Medicine 03/06/19 01/19/22 Adam English DO [address] [place] [address] User Interface Designer Gastroenterology 03/26/19 06/05/23 documented as of this encounter
--- OUTSIDE RECORDS SUMMARY | 2024-05-20 13:10 | XMS_ITS | Encounter Summary ---
Author Organization [facility] Healthcare Address [address] [place] [address] Care Team Providers Care Errand Runner Name Role Phone Janine Terry MD Primary Care Provider [phone] Adam English DO Unavailable [phone] Encounter Details Date Type Department Care Team (Latest Contact Info) Description 04/18/2019 7:45 AM SOCCER BALL ASSEMBLER - 04/20/2019 3:01 PM SOCCER BALL ASSEMBLER Hospital Encounter [facility] [id number] [place] [address] Da Hodge MD [address] [facility] [phone] [place] [address] Diverticulitis Discharge Disposition: Discharge to home or self care Social History Tobacco Use Types Packs/Day Years Used Date Smoking Tobacco: Never Smokeless Tobacco: Never Alcohol Use Standard Drinks/Week Comments Not Currently 0 (1 standard drink = 0.6 oz pur e alcohol) Comments No Sex and Gender Information Value Date Recorded Sex Assigned at Not on file Legal Sex Female 2:22 AM SOCCER BALL ASSEMBLER Gender Identity Female 05/18/2019 7:17 PM SOCCER BALL ASSEMBLER Sexual Orientation Straight 05/18/2019 7: 17 PM SOCCER BALL ASSEMBLER documented as of this encounter Last Filed Vital Signs Vital Sign Reading Time Taken Comments Blood Pressure 131/74 04/20/2019 12:09 PM SOCCER BALL ASSEMBLER Pulse 72 04/20/2019 12:09 PM SOCCER BALL ASSEMBLER Temperature 37.1 ??C (98.8 ??F) 04/20/2019 1 2:09 PM SOCCER BALL ASSEMBLER Respiratory Rate 18 04/20/2019 9:17 AM SOCCER BALL ASSEMBLER Oxygen Saturation 100% 04/20/2019 12: 09 PM SOCCER BALL ASSEMBLER Inhaled Oxygen Concentration - - Weight 132.2 kg (291 lb 7.2 oz) 04/18/2019 8:06 PM SOCCER BALL ASSEMBLER Height 177.8 cm (5' 10 ) 04/18/2019 8:06 PM SOCCER BALL ASSEMBLER Body Mass Index 41.82 04/18/2019 8:06 PM SOCCER BALL ASSEMBLER documented in this encounter Discharge Diagnoses Diagnosis Diverticulitis of large intestine without perforation or abscess without bleeding - DIVERTICULITIS OF LARGE INTESTINE WITHOUT PERFORATION OR ABSCESS WITHOUT BLEEDING Body mass index (BMI) 40.0-44.9, adult - BODY MASS INDEX (BMI) 40.0-44.9, ADULT Family history of malignant neoplasm of digestive organs - FAMILY HISTORY OF MALIGNANT NEOPLASM OF DIGESTIVE ORGANS Fatty (change of) liver, not elsewhere classified - FATTY (CHANGE OF) LIVER, NOT ELSEWHERE CLASSIFIED Gastro-esophageal reflux disease without esophagitis - GASTRO-ESOPHAGEAL REFLUX DISEASE WITHOUT ESOPHAGITIS Other specified disorders of bladder - OTHER SPECIFIED DISORDERS OF BLADDER Acquired absence of both cervix and uterus - ACQUIRED ABSENCE OF BOTH CERVIX AND UTERUS Major depressive disorder, single episode, unspecified - MAJOR DEPRESSIVE DISORDER, SINGLE EPISODE, UNSPECIFIED Anxiety disorder, unspecified - ANXIETY DISORDER, UNSPECIFIED Unspecified osteoarthritis, unspecified site - UNSPECIFIED OSTEOARTHRITIS, UNSPECIFIED SITE Morbid (severe) obesity due to excess calories (HCC) - MORBID (SEVERE) OBESITY DUE TO EXCESS CALORIES documented in this encounter Discharge Summaries * Ori Ferro MD - 04/20/2019 1:22 PM CST Inpatient Discharge Summary BRIEF OVERVIEW Admitting Provider: Da Hodge MD Discharge Provider: Da Hodge MD Primary Care Physician at Discharge: Janine Terry MD [phone] Admission Date: 04/18/2019 Discharge Date: 04/20/2019 Admission Location: [facility] Primary Discharge Diagnosis: Recurrent diverticulitis Secondary Discharge Diagnosis: Diverticulitis DETAILS OF HOSPITAL STAY Presenting Problem/History of Present Illness: Ja Poole is a 59 y.o. female who has [...] She does not have any medical issues. Hospital Course: Pt was taken to the OR on 04/18. She tolerated her procedure well. She had her COMPUTER GAME TESTER d/c'd, evans d/c'd on POD1. She was voiding in pain controlled. She had several BM and passed flatus on POD1. On [id number] drain was discontinued and she was discharged home. Active Issues Requiring Follow-up: Pathology Test Results Pending at Discharge: Order Current Status Surgical pathology In process Operative Procedures Performed: Procedure(s): RESECTION SIGMOID COLON - LAPAROSCOPIC PLACEMENT PREOPERATIVE STENT - URETERAL Other Procedures: None Pertinent Test Results: None Discharge Details Physical Exam at Discharge: Discharge Condition: good Pulse: 72 Resp: 18 BP: 131/74 Temp: 37.1 ??C (98.8 ??F) Weight: 132.2 kg (291 lb 7.2 oz) Pertinent Exam Findings at Discharge: See daily progress note Discharge Disposition: Discharge to home or self care Code Status at Discharge: Full Discharge Instructions: Please be sure to take lovenox injections daily for 21 days. Activity Instructions Discharge Activity: Lifting restrictions -Do NOT lift greater than 10-15 pounds for 2-4 weeks. Discharge Activity: Stairs -You may climb stairs Discharge Activity: Walking -You may walk as tolerated. Diet Instructions Adult Discharge Diet Diet Type: Return to previous diet Other Instructions Call provider for: increased temperature -Temperature greater than 101 degrees F Call provider for: nausea, vomiting, diarrhea -If you have persistent nausea, vomiting or diarrhea that does not stop Call provider for: redness, tenderness, or signs of infection (pain, swelling, redness, odor or green/yellow discharge around incision site) Call provider for: severe uncontrolled pain Care Instructions: Incisions -Keep incisions clean and dry Care Instructions: No tub baths -No tub baths, whirlpools or swimming until your provider says it's ok. Care Instructions: Shower -You may shower Discharge Medications: Current Medications TAKE these medications acetaminophen 500 mg tablet Commonly known as: TYLENOL Take 1,000 mg by mouth every 6 (six) hours as needed for pain ALPRAZolam 0.25 mg tablet Commonly known as: XANAX Take 0.25 mg by mouth 3 (three) times a day as needed for anxiety aspirin 325 mg tablet Take 325 mg by mouth nightly yfaqdlc-wgvrdnrxd-qslm tablet Take 1 tablet by mouth nightly 1000mg/400mg/15mg every day cetirizine 10 mg tablet Commonly known as: ZyrTEC Take 10 mg by mouth as needed for allergies cholecalciferol 2000 unit capsule Commonly known as: VITAMIN D-3 Take 2,000 Units by mouth nightly enoxaparin 40 mg/0.4 mL syringe Commonly known as: LOVENOX Inject 0.4 mL (40 mg total) under the skin every 12 (twelve) hours fluconazole 150 mg tablet Commonly known as: DIFLUCAN Take 150 mg by mouth as needed ibuprofen 600 mg tablet Commonly known as: ADVIL,MOTRIN Take 600 mg by mouth every 6 (six) hours as needed for pain lutein 20 mg tablet Take 1 tablet by mouth nightly hs METAMUCIL ORAL Take 6 Caplet by mouth every morning 6 caps am ondansetron ODT 4 mg disintegrating tablet Commonly known as: ZOFRAN-ODT Take 1 tablet (4 mg total) by mouth every 4 (four) hours as needed for nausea or vomiting oxyCODONE 5 mg immediate release tablet Commonly known as: ROXICODONE Take 1 tablet (5 mg total) by mouth every 4 (four) hours as needed for pain [facility] ORAL Take 1 tablet by mouth every morning [facility] every day unsure med dosage venlafaxine XR 150 mg 24 hr capsule Commonly known as: EFFEXOR-XR Take 150 mg by mouth nightly Outpatient Follow-Up: Future Appointments Date Time Provider Department Center 05/21/2019 7:30 AM Da Hodge MD [facility] [place] Cosigned by Da Hodge MD at 04/24/2019 4:38 PM SOCCER BALL ASSEMBLER ER BALL ASSEMBLER ER BALL ASSEMBLER documented in this encounter Medications at Time of Discharge ALPRAZolam (XANAX) 0.25 mg tablet Take 1 tablet (0.25 mg total) by mouth 3 (three) times a day as needed for anxiety acetaminophen (TYLENOL) 500 mg tablet Take 1,000 mg by mouth every 6 (six) hours as needed for pain 2 aspirin 325 mg tabletIndications:pr evention of thrombosis Take 325 mg by mouth nightly 0 uayrcoi-qrzyolfrj-og nc tablet Take 1 tablet by mouth [...] by mouth as needed 0 03/19/2019 0 ibuprofen (ADVIL,MOTRIN) 600 mg tablet Take 600 mg by mouth every 6 (six) hours as needed for pain 0 L gasseri/B bifidum/B longum ([facility] ORAL) Take 1 [...] mouth every morning 6 caps am 4 venlafaxine XR (EFFEXOR-XR) 150 mg 24 hr capsuleIndications:A nxiety with Depression Take 150 mg by mouth nightly 2 documented as of this encounter Ordered Prescriptions Prescription Sig Dispense Quantity Refills Last Filled Start Date End Date ondansetron ODT (ZOFRAN-ODT) 4 mg disintegrating tabletIndications:Pr evention of Post-Operative Nausea and Vomiting Take 1 tablet (4 mg total) by mouth every 4 (four) hours as needed for nausea or vomiting 20 tablet 04/20/2019 2 oxyCODONE (ROXICODONE) 5 mg immediate release tabletIndications:Pa in Take 1 tablet (5 mg total) by mouth every 4 (four) hours as needed for pain 20 tablet 04/20/2019 0 enoxaparin (LOVENOX) 40 mg/0.4 mL syringeIndications:D eep Vein Thrombosis Prevention Inject 0.4 mL (40 mg total) under the skin every 12 (twelve) hours 21 Syringe 04/20/2019 0 documented in this encounter Discharge Disposition Disposition Code Departure Means Destination Discharge to home or self care documented in this encounter Progress Notes * Tanja Dumont RN - 04/20/2019 3:01 PM CST 04/22/19 1412 Discharge Summary Chart reviewed For Medical Necessity Does patient have a planned readmission to hospital planned? No Discharge Disposition Home Equipment/Provider Needs No Home Needs Identified Discharge Additional Assistance Does the patient need discharge transport arranged? No Post Discharge Care Provider Post Discharge Care Plan Next level of care provider has access to complete EMR ER BALL ASSEMBLER * Jacqueline Cheek MD - 04/20/2019 6:52 AM CST [facility] Daily Progress Note Colon and Rectal Surgery PATIENT NAME: Ja Poole : 1960 ADMIT DATE: 04/18/2019 7:45 AM LOS: 2 Subjective CHIEF COMPLAINT: Diverticulitis INTERVAL HISTORY: NAEON. KRISHAN with 160mL of output over past 24 hours. Pain well tolerated. Having loose bowel movements. + Flatus. Tolerating regular diet. Objective MEDICATIONS: Scheduled: acetaminophen, 1,000 mg, oral, Q6H MARIELLA alvimopan, 12 mg, oral, BID aspirin, 81 mg, oral, Nightly enoxaparin, 40 mg, subcutaneous, Q12H MARIELLA gabapentin, 300 mg, oral, BID ketorolac, 30 mg, intravenous, Q8H sodium chloride 0.9%, 0.5-20 mL, intra-catheter, Q8H MARIELLA venlafaxine XR, 150 mg, oral, Nightly Infusions: PRN: ALPRAZolam ??? HYDROmorphone ??? ondansetron ??? oxyCODONE ??? prochlorperazine ??? sodium chloride 0.9% VITALS: 24hr Min/Max: Temp Min: 36.4 ??C (97.5 ??F) Max: 36.7 ??C (98.1 ??F) Pulse Min: 73 Max: 85 BP Min: 93/59 Max: 142/77 Resp Min: 16 Max: 20 SpO2 Min: 95 % Max: 98 % Most Recent: Vitals: 04/19/19 1635 04/19/19 1951 04/20/19 0025 04/20/19 0311 BP: 120/73 93/59 120/77 142/77 BP Location: Right arm Left arm Left arm Left arm Patient Position: Sitting Sitting Lying Sitting Pulse: 85 79 77 73 Resp: 20 18 16 18 Temp: 36.5 ??C (97.7 ??F) 36.7 ??C (98.1 ??F) 36.5 ??C (97.7 ??F) 36.4 ??C (97.5 ??F) TempSrc: Temporal Oral Oral Oral SpO2: 98% 97% 95% 98% Weight: Height: Intake/Output Summary (Last 24 hours) at 04/20/2019 0653 Last data filed at 04/20/2019 0310 Gross per 24 hour Intake 3606.67 ml Output 2160 ml Net 1446.67 ml PHYSICAL EXAM: Constitutional: NAD, well developed, well nourished. A&O x 4. HEENT: PERRL, EOMI, anicteric. Lungs: Unlabored breathing. Trachea midline. Cardiovascular: Regular rate. No JVD. GI: Abdomen soft, ATTP, non-distended, Wound: Incision clean, dry, intact with dermabond. No erythema/swelling/drainage noted. Drains: KRISHAN with serosanguinous output. Skin: No new rashes, lesions or bruises Extremities: Normal without edema or cyanosis Neurologic: Non-focal, CNII-XII grossly intact Psychiatric: Normal affect and mood. LAB/ RADIOLOGY/ DIAGNOSTIC REVIEW: Chem/LFT Lab History Some values may be hidden. Unless noted otherwise, only the newest values recorded on each date aredisplayed. Labs-Chem/LFT Latest Ref Range 04/19/19 Sodium 135 - 145 mmol/L 137 Creatinine 0.60 - 1.10 mg/dL 0.81 CrCl- Actual Body Weight (Cockcroft-Gault) 152.2 Hematology Lab History Some values may be hidden. Unless noted otherwise, only the newest values recorded on each date aredisplayed. Labs - Hematology Latest Ref Range 04/19/19 WBC 3.8 - 9.9 K/cumm 10.5 (A) Total Hb, POC 11.9 - 15.5 g/dL 12.5 Hct 35.6 - 45.5 % 39.1 Plt 150 - 400 K/cumm 224 (A) Abnormal value I have reviewed the laboratory results. ASSESSMENT/ PLAN: Ja Poole is a 59 y.o. female with Diverticulitis, status post laparoscopic sigmoid resection, POD1: Pain: Toradol for 9 doses -- last dose will be on 04/21. Dc 325mg ASA, start 81mg ASA (colon ca ppx), start toradol Diet: regular, entereg Continue KRISHAN drain until discharge. DVT PPx: lovenox Activity: with assist, PT Dispo: floor Jacqueline Cheek MD Cosigned by Da Hodge MD at 04/24/2019 4:42 PM SOCCER BALL ASSEMBLER ER BALL ASSEMBLER ER BALL ASSEMBLER * Marjorie Toussaint, PT - 04/19/2019 10:10 AM CST Physical Therapy Physical Therapy Initial Assessment Patient Name: Ja Poole Today's Date: 04/19/2019 Patient Active Problem List Diagnosis ??? Diverticulitis Past Medical History: Diagnosis Date ??? Anxiety ??? Arthritis Right ankle and knee ??? Cholecystitis ??? Colorectal polyps ??? Depression ??? Diverticulitis ??? NAFLD (nonalcoholic fatty liver disease) ??? Ovarian cyst ??? Rosacea Past Surgical History: Procedure Laterality Date ??? COLONOSCOPY 10/03/2018 ??? GALLBLADDER SURGERY 2012 ??? HYSTERECTOMY 1999 TLH, R SO ??? LAPAROSCOPIC OVARIAN CYSTECTOMY ??? LESIONECTOMY Right 2009 benign skin lesion removed from R anterior chest ??? SINUS SURGERY 1984 ??? SKIN CANCER EXCISION Right 1994 V-Y flap R latter day for [facility] ??? TERATOMA EXCISION Left 1995 L SO ??? TONSILLECTOMY AND ADENOIDECTOMY 1963 ??? TONSILLECTOMY AND ADENOIDECTOMY 1961 Prior Level of Functioning Prior Function Level of [place]: Independent with ADLs, Independent functional transfers, Independent with ambulation Lives With: Spouse Receives Help From: Spouse/Significant other, Family Fall within the last 6 months: No Precautions Precautions Precautions: Fall risk, Abdominal Activities of Daily Living Pain Pain Assessment Pain Assessment: 0-10 Pain Score: 4 Pain Type: Surgical pain Pain Location: Abdomen Pain Orientation: Generalized Pain Interventions: Repositioned, Physical Therapy, Other (Comment) Response to Interventions: pt uses COMPUTER GAME TESTER as needed Home Evaluation Home Living Type of Home: House Home Layout: One level Home Access: Stairs to enter without rails Entrance Stairs-Rails: None Entrance Stairs-Number of Steps: 1 Home Mobility Equipment: None PT Recommendation and Plan Assessment Prognosis: Good Problem List: Decreased strength, Decreased range of motion, Obesity, Pain, Decreased mobility Barriers to Discharge: None Recommendation/Plan PT Recommendation/Plan: Home with family PT Frequency: One time visit (Discharge from this service) PT Equipment Recommended: None PT - OK to Discharge: Yes PT Evaluation Complete: Yes PT Goals Multi-Disciplinary Problems (from Physical Therapy) Active Problems Not on file 04/19/19 1010 General Chart Reviewed Yes Session Type Evaluation PT Received On 04/19/19 Safe Environment Arm Band Checked;Call Light within Reach;Notified RN;Patient found sitting in Chair Subjective Agreeable to Therapy Family/Caregiver Present No Physical Therapy-Patient Goal Patient states she wants to be up and walking as much as possible. Precautions Precautions Fall risk;Abdominal Home Living Type of Home House Home Layout One level Home Access Stairs to enter without rails Entrance Stairs-Rails None Entrance Stairs-Number of Steps 1 Home Mobility Equipment None Prior Function Level of [place] Independent with ADLs;Independent functional transfers;Independent with ambulation Lives With Spouse Receives Help From Spouse/Significant other;Family Fall within the last 6 months No Pain Assessment Pain Assessment 0-10 Pain Score 4 Pain Type Surgical pain Pain Location Abdomen Pain Orientation Generalized Pain Interventions Repositioned;Physical Therapy;Other (Comment) Response to Interventions pt uses COMPUTER GAME TESTER as needed Cognition Orientation Oriented X4 (person, place, time, situation) Sensation Numbness/Tingling No Bed Mobility Bed Mobility (pt states she will be sleeping in recliner at home) Bed Mobility 1 Bed Mobility From 1 Supine Bed Mobility Type 1 To and from Bed Mobility to 1 Edge of bed Level of Assistance 1 Distant Supervision Bed Mobility Comments 1 verbal cues for logroll technique Transfers Transfer (gait belt used for all out of bed activity) Transfer 1 Transfer From 1 Sit Transfer Type 1 To and from Transfer to 1 Stand Technique 1 Sit to stand;Stand to sit Transfer Device 1 No device Transfer Level of Assistance 1 Modified Independent Trials/Comments 1 B UE support used,increased time to complete Ambulation 1 Distance (ft) 1 300 (x2) Device 1 No device Assistance 1 Modified Independent Quality of Gait 1 decreased toi Stairs Stairs Yes Stairs Number of Stairs 1 1 Rails 1 None (Comment) Device 1 No device Assistance 1 Distant supervision Stairs: Requires assist with 1 Appropriate sequencing RLE Assessment RLE Assessment WFL LLE Assessment LLE Assessment WFL Other Comments Other PT Comments Patient tolerates session very well and is motivated to perform mobility and ambulation. Logroll handout and home walking program provided to patient and abdominal precautions reviewed. Patient ends session up in bathroom per request. No further skilled PT needs at this time, patient discharged. Assessment Prognosis Good Problem List Decreased strength;Decreased range of motion;Obesity;Pain;Decreased mobility Barriers to Discharge None Plan Plan Discharge;If this is the last note, consider this the discharge summary Recommendation/Plan PT Recommendation/Plan Home with family PT Frequency One time visit (Discharge from this service) PT Equipment Recommended None PT - OK to Discharge Yes PT Evaluation Complete Yes ER BALL ASSEMBLER * Adri Melendez, CELLOPHANE BATH MIXER - 04/19/2019 7:07 AM CST [facility] Daily Progress Note Colon and Rectal Surgery PATIENT NAME: Ja Poole : 1960 ADMIT DATE: 04/18/2019 7:45 AM LOS: 1 Subjective CHIEF COMPLAINT: Diverticulitis INTERVAL HISTORY: No acute events overnight. KRISHAN drain output 213cc/24hrs. Objective MEDICATIONS: Scheduled: acetaminophen, 1,000 mg, oral, Q8H MARIELLA alvimopan, 12 mg, oral, BID aspirin, 325 mg, oral, Nightly enoxaparin, 40 mg, subcutaneous, Q12H MARIELLA gabapentin, 300 mg, oral, BID sodium chloride 0.9%, 0.5-20 mL, intra-catheter, Q8H MARIELLA venlafaxine XR, 150 mg, oral, Nightly Infusions: dextrose 5% and sodium chloride 0.45% with potassium chloride 20 mEq/L, 80 mL/hr, Last Rate: 80 mL/hr (04/19/19 0026) HYDROmorphone, , Last Rate: 0 mg (04/18/19 2319) PRN: ALPRAZolam ??? ondansetron ??? prochlorperazine ??? sodium chloride 0.9% VITALS: 24hr Min/Max: Temp Min: 36 ??C (96.8 ??F) Max: 37.1 ??C (98.8 ??F) Pulse Min: 68 Max: 84 BP Min: 110/61 Max: 135/70 Resp Min: 8 Max: 30 SpO2 Min: 88 % Max: 100 % Most Recent: Vitals: 04/18/19 1804 04/18/19 1855 04/18/19200504/19/19 0100 BP: 135/70 116/66 117/62 BP Location: Left arm Left arm Left arm Patient Position: Lying Pulse: 81 84 81 80 Resp: 20 20 20 Temp: 37.1 ??C (98.8 ??F) 36.5 ??C (97.7 ??F) TempSrc: Oral Oral SpO2: (!) 88% 94% 94% 100% Weight: 132.2 kg (291 lb 7.2 oz) Height: 177.8 cm (5' 10 ) Intake/Output Summary (Last 24 hours) at 04/19/2019 07 Last data filed at 04/19/2019 0554 Gross per 24 hour Intake 4896 ml Output 2638 ml Net 2258 ml PHYSICAL EXAM: Constitutional: NAD, well developed, well nourished. A&O x 4. HEENT: PERRL, EOMI, anicteric. Lungs: Unlabored breathing. Trachea midline. Cardiovascular: Regular rate. No JVD. GI: Abdomen soft, ATTP, non-distended, Wound: Incision clean, dry, intact with dermabond. No erythema/swelling/drainage noted. Drains: KRISHAN with serosanguinous output. Skin: No new rashes, lesions or bruises Extremities: Normal without edema or cyanosis Neurologic: Non-focal, CNII-XII grossly intact Psychiatric: Normal affect and mood. LAB/ RADIOLOGY/ DIAGNOSTIC REVIEW: Chem/LFT Lab History Some values may be hidden. Unless noted otherwise, only the newest values recorded on each date aredisplayed. Labs-Chem/LFT Latest Ref Range 04/19/19 Sodium 135 - 145 mmol/L 137 Creatinine 0.60 - 1.10 mg/dL 0.81 CrCl- Actual Body Weight (Cockcroft-Gault) 152.2 Hematology Lab History Some values may be hidden. Unless noted otherwise, only the newest values recorded on each date aredisplayed. Labs - Hematology Latest Ref Range 04/19/19 WBC 3.8 - 9.9 K/cumm 10.5 (A) Total Hb, POC 11.9 - 15.5 g/dL 12.5 Hct 35.6 - 45.5 % 39.1 Plt 150 - 400 K/cumm 224 (A) Abnormal value I have reviewed the laboratory results. ASSESSMENT/ PLAN: Ja Poole is a 59 y.o. female with Diverticulitis, status post laparoscopic sigmoid resection, POD1: Pain: dc dPCA, tylenol, gabapentin Dc 325mg ASA, start 81mg ASA (colon ca ppx), start toradol Diet: regular, entereg DVT PPx: lovenox Activity: with assist, PT Manjinder evans, void check Dispo: floor Adri Melendez ANP-, MILL FEEDER-BC Department of Colorectal Surgery -- Nurse Practitioner [facility]ly [employer] (w) [phone] Cosigned by Da Hodge MD at 04/24/2019 4:42 PM SOCCER BALL ASSEMBLER ER BALL ASSEMBLER ER BALL ASSEMBLER * Sara Muir MD - 04/18/2019 5:39 PM CST Colorectal Surgery [facility] Post-op Check Note S: Ja Poole seen after undergoing a Procedure(s) (LRB): RESECTION SIGMOID COLON - LAPAROSCOPIC (N/A) PLACEMENT PREOPERATIVE STENT - URETERAL (N/A). Patient seen in room at 1730 on unit 3100 after transfer from PACU. Upon entry, patient resting in bed- easily awakens to voice. States overall her pain has been doing well since surgery but reports severe bladder spasms with evans in place- which she states has always been a problem for her with prior evans catheters. Has pushed COMPUTER GAME TESTER button x2. No nausea or vomiting since procedure. No flatus. Has not ambulated yet. at bedside. O: Blood pressure 115/71, pulse 74, temperature 36 ??C (96.8 ??F), temperature source Oral, resp. rate13, SpO2 93 %. Gen: AOx3, conversing easily CV: regular rate, no JVD Pulm: unlabored breathing, no wheezing or cough Abdomen: soft, nondistended; appropriately tender; laparoscopic sites c/d/i with edges well-approximated with dermabond; RLQ KRISHAN with SS output : Evans in place, +200cc Clear, red urine in the bag. LE: Warm, SCD's in place. Post-Op Labs/Imaging: None A/P: Ja Poole is a 59F with history of recurrent diverticulitis s/p lap assisted sigmoidectomy. - IVF: [id number] @ 125 cc/hr, wean in AM per pathway - Diet: clear liquid diet, advance in AM if tolerating - Continue entereg until return of bowel function - Drain: continue in place; trend output - Pain control: COMPUTER GAME TESTER, tylenol, gabapentin - D/c Evans POD1 - Continue home ASA 325mg, effexor, xanex - Strict I/Os - Ambulation within 4 hours arrival to floor - DVT ppx: lovenox, SCDs - AM labs Sara Muir MD PGY1, General Surgery [phone] Cosigned by Da Hodge MD at 04/24/2019 4:42 PM SOCCER BALL ASSEMBLER ER BALL ASSEMBLER ER BALL ASSEMBLER documented in this encounter H&P Notes * Da Hodge MD - 04/18/2019 2:33 PM CST I have reviewed the H&P, examined the patient, and endorse the findings as written. Plan of Care : Based on the above findings, I consider Ja Poole to be an acceptable risk for :Procedure(s): RESECTION SIGMOID COLON - LAPAROSCOPIC PLACEMENT PREOPERATIVE STENT - URETERAL ER BALL ASSEMBLER Source Note - Da Hodge MD - 03/26/2019 10:00 AM SOCCER BALL ASSEMBLER Colorectal Surgery Consultation Consult requested by Janine Terry MD for New Patient (Diverticulitis) . Chief Complaint: Ja Poole is a 59 y.o. female with chief complaint of New Patient (Diverticulitis) . HPI: Ja Poole is a 59 y.o. female who has [...] no masses or tenderness Assessment and Plan: Ja Poole is a 59 y.o. female with recurrent [...] surgery. Da Hodge MD 03/26/2019 10:40 AM ER BALL ASSEMBLER * Glenroy Walker MD - 04/18/2019 10:16 AM CST I have reviewed the H&P, examined the patient, and endorse the findings as written. Plan of Care : Based on the above findings, I consider Ja Poole to be an acceptable risk for :Procedure(s): RESECTION SIGMOID COLON - LAPAROSCOPIC PLACEMENT PREOPERATIVE STENT - URETERAL Cosigned by Da Hodge MD at 04/18/2019 10:17 AM SOCCER BALL ASSEMBLER ER BALL ASSEMBLER ER BALL ASSEMBLER Source Note - Judd Johns MD - 04/03/2019 3:20 PM SOCCER BALL ASSEMBLER Images from the original note were not included. [facility] for Preoperative Assessment and Planning Preoperative Evaluation Record Evaluation type/location: [facility] OR Date: 04/03/19 Anesthesia Evaluation Ja Poole is a 59 y.o. female Procedure(s): RESECTION SIGMOID COLON - LAPAROSCOPIC PLACEMENT PREOPERATIVE STENT - URETERAL Pre-Op Diagnosis Codes: * Diverticulitis [K57.92] HISTORY HPI Ja Poole is a 59 y.o. female who is being evaluated prior to undergoing RESECTION SIGMOID COLON - LAPAROSCOPIC/ PLACEMENT PREOPERATIVE STENT - URETERAL for recurrent diverticuliits. Past Medical History Neurological + Psychiatric history (no panic attacks; currently denies Si/ HI) - anxiety and depression Pertinent negatives: seizures; CVA/stroke and TIA Cardiovascular + Other arrhythmia ( PVCs per pt account) Pertinent negatives: hypertension ; VA ; valvular heart disease; valve replacement; atrial [...] cancer only. Cancer type: BCCa to R latter day- s/p resection. Pertinent negatives: diabetes mellitus and [...] status: complete pending laboratory results. Additional comments: Ja Poole is a 59 y.o. female who is [...] Sent Pool message to surgeon @ [facility] CPAP assessment complete pending lab/ [...] 325 mg tablet -- -- Historical Provider, ufjyygz-odgpiybbs-waex tablet -- -- Historical Provider, cetirizine (ZyrTEC) 10 mg tablet -- -- Historical Provider, cholecalciferol (VITAMIN D-3) 2,000 unit capsule -- -- Historical Provider, fluconazole (DIFLUCAN) 150 mg tablet 03/19/19 -- Historical Provider, ibuprofen (ADVIL,MOTRIN) 600 mg tablet -- -- Historical Provider, MD Hawkins gasseri/Alessandra bifidum/B longum ([facility] [employer] [facility]) -- -- Historical Provider, lutein 20 [...] tablet ??? aspirin 325 mg tablet ??? shojklz-pomauwssj-fqyu tablet ??? cetirizine (ZyrTEC) 10 mg tablet ??? cholecalciferol (VITAMIN D-3) 2,000 unit capsule ??? fluconazole (DIFLUCAN) 150 mg tablet ??? ibuprofen (ADVIL,MOTRIN) 600 mg tablet ??? L gasseri/B bifidum/B longum ([facility] [employer] [facility]) ??? lutein 20 mg tablet ??? [...] Medication protocol when under care of a POST DOC FELLOWSHIP Planned anesthesia: General Informed Consent: Anesthesia plan [...] agree to proceed. All questions answered. 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 Poole is doing well. She is having bowel movements and voiding without issues. Pain iswell controlled with current pain regimen. Ambulating in the halls without difficulty. Problem: Health Behavior: Goal: Understanding of discharge needs will improve Outcome: Progressing Problem: Activity: Goal: Ability to tolerate increased activity will improve Outcome: Progressing Problem: Bowel/Gastric: Goal: Gastrointestinal status for postoperative course will improve Outcome: Progressing Problem: Lack of Knowledge: Goal: Understanding of discharge needs will improve Outcome: Progressing Problem: Coping: Goal: Level of anxiety will decrease Outcome: Progressing Problem: Fluid Volume: Goal: Will show no signs or symptoms of fluid imbalance Outcome: Progressing Problem: Nutritional: Goal: Will attain and maintain optimal nutritional status will improve Outcome: Progressing Problem: Physical Regulation: Goal: Postoperative complications will be avoided or minimized Outcome: Progressing Problem: Respiratory: Goal: Will remain free from respiratory infection Outcome: Progressing Problem: Sensory: Goal: Pain level will decrease Outcome: Progressing ER BALL ASSEMBLER * Plan of Care - Cheryl Gutierres RN - 04/19/2019 6:53 PM CST Goals: Clinical Goals for the Shift: Pain control, OOPB, IS, ankle pumps Summary: Problem: Health Behavior: Goal: Understanding of discharge needs will improve Outcome: Progressing Problem: Activity: Goal: Ability to tolerate increased activity will improve Outcome: Progressing Problem: Bowel/Gastric: Goal: Gastrointestinal status for postoperative course will improve Outcome: Progressing Problem: Lack of Knowledge: Goal: Understanding of discharge needs will improve Outcome: Progressing Problem: Coping: Goal: Level of anxiety will decrease Outcome: Progressing Problem: Fluid Volume: Goal: Will show no signs or symptoms of fluid imbalance Outcome: Progressing Problem: Nutritional: Goal: Will attain and maintain optimal nutritional status will improve Outcome: Progressing Problem: Physical Regulation: Goal: Postoperative complications will be avoided or minimized Outcome: Progressing Problem: Respiratory: Goal: Will remain free from respiratory infection Outcome: Progressing Problem: Sensory: Goal: Pain level will decrease Outcome: Progressing ER BALL ASSEMBLER * Plan of Care - Sue Hoffman RN - 04/19/2019 1:20 AM CST Problem: Health Behavior: Goal: Understanding of discharge needs will improve Outcome: Progressing Problem: Activity: Goal: Ability to tolerate increased activity will improve Outcome: Progressing Problem: Bowel/Gastric: Goal: Gastrointestinal status for postoperative course will improve Outcome: Progressing Problem: Lack of Knowledge: Goal: Understanding of discharge needs will improve Outcome: Progressing Problem: Coping: Goal: Level of anxiety will decrease Outcome: Progressing Problem: Fluid Volume: Goal: Will show no signs or symptoms of fluid imbalance Outcome: Progressing Problem: Nutritional: Goal: Will attain and maintain optimal nutritional status will improve Outcome: Progressing Problem: Physical Regulation: Goal: Postoperative complications will be avoided or minimized Outcome: Progressing Problem: Respiratory: Goal: Will remain free from respiratory infection Outcome: Progressing Problem: Sensory: Goal: Pain level will decrease Outcome: Progressing Goals: Clinical Goals for the Shift: Pain control, OOPB, IS, ankle pumps Summary: ER BALL ASSEMBLER * Plan of Care - Jaya Petty RN - 04/18/2019 5:39 PM CST Problem: Health Behavior: Goal: Understanding of discharge needs will improve Outcome: Progressing Problem: Activity: Goal: Ability to tolerate increased activity will improve Outcome: Progressing Problem: Bowel/Gastric: Goal: Gastrointestinal status for postoperative course will improve Outcome: Progressing Problem: Lack of Knowledge: Goal: Understanding of discharge needs will improve Outcome: Progressing Problem: Coping: Goal: Level of anxiety will decrease Outcome: Progressing Problem: Fluid Volume: Goal: Will show no signs or symptoms of fluid imbalance Outcome: Progressing Problem: Nutritional: Goal: Will attain and maintain optimal nutritional status will improve Outcome: Progressing Problem: Physical Regulation: Goal: Postoperative complications will be avoided or minimized Outcome: Progressing Problem: Respiratory: Goal: Will remain free from respiratory infection Outcome: Progressing Problem: Sensory: Goal: Pain level will decrease Outcome: Progressing Goals: IV fluids, pain control, I/S. Summary: ER BALL ASSEMBLER * Perioperative Nursing Note - Eugenie Roman RN - 04/18/2019 12:14 PM SOCCER BALL ASSEMBLER Time Out and Fire Safety Verification completed for Laparoscopic Sigmoid Resection with Dr Hodge at 1209. Surgeon used SPYPHI. ICG given IV. Reps present and operating device. ER BALL ASSEMBLER * Op Note - Burton Cowan MD - 04/18/2019 11:31 AM CST OPERATIVE REPORT Patient Name: JA POOLE : 1960 Operative date: 04/18/19 Preoperative diagnosis: Diverticulitis Postoperative diagnosis: Diverticulitis Procedure: Cystoscopy with bilateral temporary ureteral stent placement Surgeon: Burton Cowan MD Lab Head: Judd Johns MD Anesthesia: General anesthesia Indications: Pre operative temporary ureteral stent placement Findings: Normal cystoscopy Description of procedure: Informed consent was obtained. Patient was placed in a low lithotomy position. Patient's genitals were prepped and draped sterilely. A rigid cystoscope was advanced into the bladder per urethra. The urethra and the bladder mucosa looks normal. Next we cannulated the left ureteral orifice with 5 Mozambican whistle-tip ureteral catheters without any resistance, difficulty, or bleeding. The whistle tip catheter was then attempted to bepassed through the right ureteral orifice but slight resistance was met. At this point, a [employer] wire was advanced through the ureter and then the whistle tip catheter was carefully fed over the wire into the renal pelvis. We removed the cystoscope while maintaining the stents in position. We thenplaced a Evans catheter per urethra alongside the stents and injected 10 cc fluid into the balloon.We secured the externalized ureteral stents to the Evans catheter with clips. Complications: None Estimated blood loss: Minimal Specimen: None Implant: None Drains: 1. Bilateral 5 Mozambican internal-external ureteral catheters 2. Evans catheter Disposition: Patient will be turned over to the care under the primary team. The ureteral catheters and Evans catheter may be removed per primary team. Cosigned by Benito Clifton MD at 04/22/2019 8:48 AM SOCCER BALL ASSEMBLER ER BALL ASSEMBLER ER BALL ASSEMBLER * Op Note - Da Hodge MD - 04/18/2019 11:31 AM CST SURGICAL TEAM: Surgeon(s) and Role: Panel 1: * Da Hodge MD - Primary * Glenroy Walker MD - Fellow Panel 2: * Benito Clifton MD - Primary ANESTHESIA: General Endotracheal PREOPERATIVE DIAGNOSIS (ES): Sigmoid diverticulitis POSTOPERATIVE DIAGNOSIS (ES): Sigmoid diverticulitis NAME OF OPERATION: Laparoscopic sigmoid colectomy INDICATIONS FOR PROCEDURE: The patient is a 59 y.o. female with sigmoid diverticulitis. She has had multiple attacks and comesto the operating room for treatment. She has had a normal colonoscopy within the last two years. OPERATIVE FINDINGS: Short segment disease in the mid sigmoid colon that was adherent to the base of the bladder with filmy adhesions. Remainder the abdomen was normal. There were minimal adhesions from the previous surgeries. DESCRIPTION OF PROCEDURE: The patient was brought to the operating room and placed under general anesthesia in the lithotomy position. The abdomen was prepped and draped in the normal sterile fashion. The abdomen was entered through a Pfannenstiel incision. The fascia was incised transversely and the muscle was divided in midline. A GelPort was placed through this incision. A 10 mm supraumbilical trocar was then placed directly onto a hand. The abdomen was insufflated to 15 mmHg and inspected. And it was normal except for a small adhesion to the midline incision. This was an omental adhesion was taken down with the LigaSure. There was no bowel close to this adhesion. The above-noted disease was seen in the mid sigmoid colon.. Five millimeter trocars were placed in the right and left abdomen under direct visualization. The left colon mobilization was commenced by incising the right aspect of the rectosigmoid mesentery at the level of the sacral promontory. The retroperitoneal fusion plane was entered and dissection was carried out as planned laterally beyond the ureter. The left ureter was identified visuallyand by palpation. It was swept out of harm???s way. The inferior mesenteric artery was then isolated and divided at its midpoint with the LigaSure. Prior to dividing the vessel, the ureter was confirmed to be safe from harm. The inferior mesenteric vein was then dissected away from the 4th portion of the duodenum and divided at the inferior border of the pancreas with the LigaSure. The remainder of the retroperitoneal dissection was continued out laterally beyond the colon in a cephalad direction above the apex of the left kidney. The lateral attachments of the left colon were then divided. The splenic flexure was mobilized. The lesser sac was entered. The distal omental-colic and remainingretroperitoneal attachments were divided. This allowed the splenic flexure of the colon to fall easily into the pelvis. The retroperitoneum was inspected as were the vascular pedicles and hemostasis was confirmed. The GelPort was removed. The colon was delivered out to the GelPort. The adhesions ofthe sigmoid colon to the pelvic sidewall were divided. This allowed us to deliver out the diseased sigmoid colon through the wound. A point was chosen in the distal descending colon where the colon was soft and there was no evidence of any previous disease. The mesentery to that point was divided between clamps with 0 Vicryl ties. Prior to tying off the vessel, it was flashed and there was excellent pulsatile arterial inflow. The colon was divided with a pursestring device. A 28 EEA anvil was placed within the colon and secured with the pursestring. Attention was then turned to the diseased segment. The disease segment was dissected away from the base of the bladder and the pelvic sidewall sharply. The upper rectum was mobilized off the sacral promontory in the mesorectal fascia plane. The lateral attachments of the upper rectum were divided. A point was chosen in the upper rectum were it was soft and normal appearing. It was bluntly dissected away from the mesorectum. The upper rectum was then divided with a green load contour stapler. The mesorectum was divided using the LigaSure.The EEA stapler was then passed transanally. The stapler spike was delivered out to the midpoint ofthe transverse staple line. The anvil was secured to the stapler. The mesentery was confirmed to bestraight. The stapler was closed under direct visualization to ensure that no extraneous structureswere included. The mesentery was again confirmed to be straight. The stapler was fired. The anastomosis was air tested under saline with vigorous rectal insufflation and there was no leaking. A 19 Joesph drain was placed in the pelvis. The umbilical fascia was closed with qdvfzt-dr-pjozq 0 Vicryl suture. The muscles were reapproximated in the midline with rqombv-sj-exuym 0 Vicryl. The transverse fascial incision was closed with a running #1 Vicryl suture. The wounds were all irrigated and the skin was closed with subcuticular Monocryl and Dermabond. ESTIMATED BLOOD LOSS: 200 mL INTRAOPERATIVE FLUIDS: See anesthesia record. SPONGE/INSTRUMENT/NEEDLE COUNTS: Correct times two. PRESENCE STATEMENT: I was present for the entire procedure from start to finish except for skin closure during which time I was immediately available. ER BALL ASSEMBLER documented in this encounter Plan of Treatment Not on file documented as of this encounter Procedures Procedure Name Priority Date/Time Associated Diagnosis Comments EGFR Routine 04/19/2019 3:35 AM SOCCER BALL ASSEMBLER CBC WITHOUT DIFFERENTIAL Routine 04/19/2019 3:35 AM SOCCER BALL ASSEMBLER MAGNESIUM Routine 04/19/2019 3:35 AM SOCCER BALL ASSEMBLER BASIC METABOLIC PANEL Routine 04/19/2019 3:35 AM SOCCER BALL ASSEMBLER SURGICAL PATHOLOGY Routine 04/18/2019 1: 46 PM SOCCER BALL ASSEMBLER Diverticulitis PLACEMENT PREOPERATIVE STENT - URETERAL 04/18/2019 11:11 AM SOCCER BALL ASSEMBLER Diverticulitis RESECTION SIGMOID COLON - LAPAROSCOPIC 04/18/2019 11:11 AM SOCCER BALL ASSEMBLER Diverticulitis B ABO / RH CONFIRMATION TESTING STAT 04/18/2019 10:10 AM SOCCER BALL ASSEMBLER ABO/RH STAT 04/18/2019 10:03 AM SOCCER BALL ASSEMBLER ANTIBODY SCREEN STAT 04/18/2019 10:03 AM SOCCER BALL ASSEMBLER TYPE AND SCREEN STAT 04/18/2019 10:03 AM SOCCER BALL ASSEMBLER documented in this encounter Results * eGFR (04/19/2019 3:35 AM SOCCER BALL ASSEMBLER) eGFR >60 mL/min/1.7 3 m2 [facility] Comment: Interpretive Data Reference Interval Normal ?>/= 90 mL/min/1.73m2 Mildly decreased* ? 60 - 89 mL/min/1.73m2 Mildly to moderately decreased ?45 - 59 mL/min/1.73m2 Moderately to severely decreased ??30 - 44 mL/min/1.73m2 Severely decreased ?15 - 29 mL/min/1.73m2 Kidney Failure ?< 15 ??mL/min/1.73m2 *Relative to young adult level If -Ghanaian multiply value by 1.16. Estimated glomerular filtration rate is determined by [...] 70. Current interpretive data was last reviewed 2015. Blood specimen (specimen) 04/19/2019 3:35 AM SOCCER BALL ASSEMBLER 04/19/2019 3:36 AM SOCCER BALL ASSEMBLER Da Hodge MD LAB BLOOD ORDERABLES Final Res ult [facility] [address] [facility]. Department [place] [address] * Magnesium (04/19/2019 3:35 AM SOCCER BALL ASSEMBLER) Magnesium 1.9 1.4 - 2.5 mg/dL [facility] Comment: Reference Data. Reference values for Labor and Delivery patients: < or = 0.7 mg/dL to > or = 7.3 mg/dL Current reference data last reviewd on 02/11/2015. Blood specimen (specimen) 04/19/2019 3:35 AM SOCCER BALL ASSEMBLER 04/19/2019 3:36 AM SOCCER BALL ASSEMBLER Da Hodge MD LAB BLOOD ORDERABLES Final Res ult Performing Organization Address City/[facility]/ZIP Co de Phone Number [facility] [address] [facility] [address] [place], [place] [phone] * (ABNORMAL) Basic metabolic panel (04/19/2019 3:35 AM SOCCER BALL ASSEMBLER) Sodium 137 135 - 145 mmol/L [facility] Potassium, pl 4.8 3.3 - 4.9 mmol/L [facility] Chloride 102 97 - 110 mmol/L [facility] CO2 26 22 - 32 mmol/L [facility] Anion gap 9 2 - 15 mmol/L [facility] BUN 14 8 - 25 mg/dL [facility] Creatinine 0.81 0.60 - 1.10 mg/dL [facility] Glucose 137 70 - 199 mg/dL [facility] Comment: Interpretive Data Fasting glucose >/= 126 [...] interpretive data was last revised 2017. Calcium 8.3(L) 8.5 - 10.3 mg/dL [facility] Blood specimen (specimen) 04/19/2019 3:35 AM SOCCER BALL ASSEMBLER 04/19/2019 3:36 AM SOCCER BALL ASSEMBLER Da Hodge MD LAB BLOOD ORDERABLES Final Res ult Performing Organization Address City/[facility]/ZIP Co de Phone Number [facility]YLE[facility] [address] [facility] [address] [employer] [place], [place] [phone] * (ABNORMAL) CBC without differential (04/19/2019 3:35 AM SOCCER BALL ASSEMBLER) WBC 10.5(H) 3.8 - 9.9 K/cumm [facility] Hgb 12.5 11.9 - 15.5 g/dL [facility] Hct 39.1 35.6 - 45.5 % [facility] Plt 224 150 - 400 K/cumm [facility] MPV 10.6 9.1 - 12.3 fL [facility] RBC 4.13 3.90 - 5.20 M/cumm [facility] MCV 94.7 81.3 - 96.4 fL [facility] MCH 30.3 27.1 - 33.3 pg [facility] MCHC 32.0(L) 32.3 - 35.7 g/dL [facility] RDW CV 13.4 11.1 - 14.9 % [facility] RDW SD 46.8 35.7 - 48.1 fL [facility] NRBC abs 0.00 0.00 - 0.01 K/cumm [facility] Blood specimen (specimen) 04/19/2019 3:35 AM SOCCER BALL ASSEMBLER 04/19/2019 3:36 AM SOCCER BALL ASSEMBLER us Da Hodge MD LAB BLOOD ORDERABLES Final Res ult [facility] [address] [facility]. [place] [address] * Surgical pathology (04/18/2019 1:46 PM SOCCER BALL ASSEMBLER) Tissue (Colon, Resection, Non-tumor) 04/18/2019 1:46 PM SOCCER BALL ASSEMBLER Narrative PATHOLOGY [facility] [place] - 04/23/2019 11:26 AM SOCCER BALL ASSEMBLER EPIC results best viewed via link to PDF [facility] [place] [address] SURGICAL PATHOLOGY REPORT FINAL Patient Name: ?? JA POOLE Gender: ??F : ??1960 (Age: 59) Address: ??[address] [place], [place] ??[address] Hospital #: ??[id number] Taken:04/18/2019 Received:04/18/2019 Reported: 04/23/2019 Patient Type: WC Inpatient Client ?[facility] Service: Surgery Location: [facility] ADMT Physician(s): ??Jonathan Palafox M.D. Diagnosis: A. ??Colon, sigmoid colon, laparoscopic resection ? - Multiple diverticula with focal mucosal acute inflammation and extravasated mucin - Pericolonic fibrosis and adhesions fvw/04/22/2019 15:00 By this signature, I attest that the above diagnosis is based upon my personal examination of the slides(and/or other material indicated in the diagnosis). Fanny Pathak M.D. Report Electronically Reviewed and Signed Out By ??Fanny Pathak M.D. 04/23/2019 11:26:28 Microscopic Description and Comment: Microscopic examination substantiates the above cited diagnosis. ??Additional levels were obtained for microscopic examination on selected blocks. Microscopic slide review and interpretation for this case was performed at the [facility], ??[address], [place] ??[address] ?? CLIA # [id number] History: The patient is a 59-year-old woman with history of diverticulitis. ??Operative procedure: Laparoscopic sigmoid colon resection. Specimen(s) Received: A: Sigmoid colon Gross Description: Received in formalin labeled with the patient's name and sigmoid colon is a 22 cm in length by 2 cm in diameter segment of colon with attached adipose tissue. ??The serosal surface is pink-leyva with some adhesions. ??The mucosa is leyva and well folded with multiple diverticula. ??The adjacent adipose tissue has some dusky discoloration. ??No abscesses are identified grossly. ??The largest diverticulum (1.3 cm) is thin-walled and contains some fecal material. ??One of the diverticula contains some mucinous appearing material. ??No other mucosal lesions are found. ??Labeled A1 to A2 - mucosal margins; A3 to A6- patient care representative diverticula; A7/A8 entire diverticulum containing mucinous material. ??Jar 4. mab/04/19/2019 09:18 PA(s): Julia Muñoz, MS, PA ([facility]) By this signature, I attest that the above diagnosis is based upon my personal examination of the slides(and/or other material). The performance characteristics of some immunohistochemical stains, fluorescence in-situ hybridization tests and immunophenotyping by flow cytometry cited in this report (if any) were determined by the Surgical Pathology Department at [facility] as part of an ongoing quality control director program and in compliance with federally mandated [...] performance characteristics determined by the Surgical Pathology Department of [facility]. ??It has not been cleared or approved by the U. S. Food and Drug Administration. IMAGES AND SCANNED DOCUMENTS, IF INCLUDED, ONLY VIEWABLE IN PDF VERSION OF REPORT Da Hodge MD LAB PATHOLOGY ORDERABLES Final Result Performing Organization Address [facility] Co de Phone Number PATHOLOGY [facility] [place] [phone] * ABO / Rh Confirmation Testing (04/18/2019 10:10 AM SOCCER BALL ASSEMBLER) ABO/Rh Confirmation A Positive [facility] Blood specimen (specimen) 04/18/2019 10:10 AM SOCCER BALL ASSEMBLER 04/18/2019 11:13 AM SOCCER BALL ASSEMBLER Mima Jaime [employer] LAB BLOOD ORDERABLES Final Resu lt Performing Organization Address City/[facility] Co de Phone Number [facility]ARR[facility] [address] Department [place] [address] * Antibody screen (04/18/2019 10:03 AM SOCCER BALL ASSEMBLER) Vicky, indirect, Gel Interpretation Negative ABSC [facility] Blood specimen (specimen) 04/18/2019 10:03 AM SOCCER BALL ASSEMBLER 04/18/2019 10:11 AM SOCCER BALL ASSEMBLER Narrative [facility] - 04/18/2019 11:00 AM SOCCER BALL ASSEMBLER Has the patient had Daratumumab (Darzalex) in the past 6 months?->Unknown Mima Jaime CELLOPHANE BATH MIXER LAB BLOOD BANK TEST ORDERABLES Final Result Performing Organization Address [facility] Co de Phone Number [facility] [id number] [facility] [place] [address] * ABO/Rh (04/18/2019 10:03 AM SOCCER BALL ASSEMBLER) ABO/Rh A Positive BRITTANY FARRIS Blood specimen (specimen) 04/18/2019 10:03 AM SOCCER BALL ASSEMBLER 04/18/2019 10:11 AM SOCCER BALL ASSEMBLER Narrative BRITTANY FARRIS - 04/18/2019 11:13 AM SOCCER BALL ASSEMBLER Has the patient had Daratumumab (Darzalex) in the past 6 months?->Unknown Mima Jaime NP LAB BLOOD BANK TEST ORDERABLES Final Result Performing Organization Address [facility] Co de Phone Number BRITTANY CAVAZOSCH [id number] [facility] [place] [address] documented in this encounter Visit Diagnoses Diagnosis Diverticulitis- Primary Diverticulitis of colon (without mention of hemorrhage) Diverticulitis Diverticulitis of colon (without mention of hemorrhage) documented in this encounter Admitting Diagnoses Diagnosis Diverticulitis Diverticulitis of colon (without mention of hemorrhage) documented in this encounter Administered Medications Inactive Administered Medications - up to 3 most recent administrations Medication Order MAR Action Action Date Dose Rate Site acetaminophen (TYLENOL) tablet 1,000 mg 1,000 mg, oral, Once, On Valeria 04/18/19 at 1000, For 1 dose, Pre-Op, Give upon arrival to holding area. , Indications: Pre-Emptive AnalgesiaIndications:Pre-Emptive Analgesia Given 04/18/2019 9:45 AM SOCCER BALL ASSEMBLER 1,000 mg acetaminophen (TYLENOL) tablet 1,000 mg 1,000 mg, oral, Every 8 hours scheduled, First dose on Valeria 04/18/19 at 2000, Indications: PainIndications:Pain Given 04/20/2019 3:06 AM SOCCER BALL ASSEMBLER 1,000 mg Given 04/19/2019 8:27 PM SOCCER BALL ASSEMBLER 1,000 mg Given 04/19/2019 12:51 PM SOCCER BALL ASSEMBLER 1,000 mg acetaminophen (TYLENOL) tablet 1,000 mg 1,000 mg, oral, Every 6 hours scheduled, First dose (after last modification) on 04/20/19 at 1200, Indications: PainIndications:Pain Given 04/20/2019 11:31 AM SOCCER BALL ASSEMBLER 1,000 mg alvimopan (ENTEREG) capsule 12 mg 12 mg, oral, Once, On Valeria 04/18/19 at 1000, For 1 dose, Pre-Op, Give immediately upon arrival to holding area (do not prescribe if patient is currently receiving chronic opioid treatment). , Indications: Postoperative Ileus, Postoperative ileus prophylaxisIndications:Postoperat qiana Ileus,Postoperative ileus prophylaxis Given 04/18/2019 9:46 AM SOCCER BALL ASSEMBLER 12 mg alvimopan (ENTEREG) capsule 12 mg 12 mg, oral, 2 times daily, First dose on Mon04/19/19 at 0900, For 7 days, Discontinue after first postoperative bowel movement., Indications: Postoperative IleusIndications:Postoperative Ileus Given 04/19/2019 9:08 AM SOCCER BALL ASSEMBLER 12 mg aspirin chewable tablet 81 mg 81 mg, oral, Nightly, First dose (after last modification) on Mon04/19/19 at 2100, Indications: prevention of thrombosisIndications:prevention of thrombosis Given 04/19/2019 8:27 PM SOCCER BALL ASSEMBLER 81 mg aspirin tablet 325 mg 325 mg, oral, Nightly, First dose on Valeria 04/18/19 at 2100, Indications: prevention of thrombosisIndications:prevention of thrombosis Given 04/18/2019 8:17 PM SOCCER BALL ASSEMBLER 325 mg celecoxib (CeleBREX) capsule 400 mg 400 mg, oral, Once, On Valeria 04/18/19 at 1000, For 1 dose, Pre-Op, Give upon arrival to holding area., Indications: Pre-Emptive AnalgesiaIndications:Pre-Emptive Analgesia Given 04/18/2019 9:46 AM SOCCER BALL ASSEMBLER 400 mg dextrose 5% and sodium chloride 0.45% with potassium chloride 20 mEq/L infusion (premix) 125 mL/hr, intravenous, Continuous, Starting on Valeria 04/18/19 at 1645, For 8 hours New Bag 04/18/2019 4:34 PM SOCCER BALL ASSEMBLER 125 mL/hr 12 5 mL/hr dextrose 5% and sodium chloride 0.45% with potassium chloride 20 mEq/L infusion (premix) 80 mL/hr, intravenous, Continuous, Starting on Mon04/19/19 at 0034, For 25 hours, Saline lock after 2 liters. New Bag 04/19/2019 1:07 PM SOCCER BALL ASSEMBLER 80 mL/hr 80 mL/hr New Bag 04/19/2019 12:26 AM SOCCER BALL ASSEMBLER 80 mL/hr 80 mL/hr enoxaparin (LOVENOX) syringe 40 mg 40 mg, subcutaneous, Every 12 hours scheduled, First dose (after last modification) on Mon04/19/19 at 0200, RN to teach home administration with every injection., Indications: Deep Vein Thrombosis PreventionIndications:Deep Vein Thrombosis Prevention Given 04/20/2019 9:49 AM SOCCER BALL ASSEMBLER 40 mg Left Upper Abdomen Given 04/19/2019 8:27 PM SOCCER BALL ASSEMBLER 40 mg Ri ght Lower Abdomen Given 04/19/2019 9:08 AM SOCCER BALL ASSEMBLER 40 mg Le ft Lower Abdomen gabapentin (NEURONTIN) capsule 300 mg 300 mg, oral, Once, On Valeria 04/18/19 at 1000, For 1 dose, Pre-Op, Give upon arrival to holding area. , Indications: Pre-Emptive AnalgesiaIndications:Pre-Emptive Analgesia Given 04/18/2019 9:46 AM SOCCER BALL ASSEMBLER 3 00 mg gabapentin (NEURONTIN) capsule 300 mg 300 mg, oral, 2 times daily, First dose on Valeria 04/18/19 at 2100 Given 04/20/2019 9:48 AM SOCCER BALL ASSEMBLER 300 mg Given 04/19/2019 8:27 PM SOCCER BALL ASSEMBLER 300 mg Given 04/19/2019 9:08 AM SOCCER BALL ASSEMBLER 300 mg heparin 5,000 unit/mL injection 5,000 Units 5,000 Units, subcutaneous, Once, On Valeria 04/18/19 at 1000, For 1 dose, Pre-Op, Can give immediately after neuraxial block if no complications per anesthesia., Indications: Deep Vein Thrombosis PreventionIndications:Deep Vein Thrombosis Prevention Given 04/18/2019 9:46 AM SOCCER BALL ASSEMBLER 5,000 Units Right Lower Abdomen HYDROmorphone (DILAUDID) injection 0.2 mg 0.2 mg, intravenous, Administer over 2 Minutes, Every 4 hours PRN, 2nd line for pain, Starting on Mon04/19/19 at 1127, May administer 1 hour after second dose of 1st line analgesic agent for uncontrolled or increasing pain., Indications: PainIndications:Pain HYDROmorphone in 0.9% sodium chloride (DILAUDID) 10 mg/50 mL (0.2 mg/mL) infusion (premix) Continuous dose: None, COMPUTER GAME TESTER dose: Other / 0.1mg, COMPUTER GAME TESTER lockout: 10 Minutes, 1 hour limit: Other / 0.6 mg, intravenous, Continuous, Starting on Valeria 04/18/19 at 1500, Until Mon04/19/19 at 1127, 50 mL, Indications: Pain, RoutineIndications:Pain New Bag 04/18/2019 11:23 PM SOCCER BALL ASSEMBLER 10 mg New Bag 04/18/2019 3:06 PM SOCCER BALL ASSEMBLER 10 mg ibuprofen (ADVIL,MOTRIN) tablet/capsule 600 mg 600 mg, oral, 3 times daily PRN, 1st line for pain, alternate with APAP, Starting on 04/20/19 at 0746 ketorolac (TORADOL) injection 30 mg 30 mg, intravenous, Every 8 hours, First dose on Mon04/19/19 at 1200, For 9 doses, For Adult IV push, administer over 15 seconds Given 04/20/2019 3:06 AM SOCCER BALL ASSEMBLER 30 mg Given 04/19/2019 8:27 PM SOCCER BALL ASSEMBLER 30 mg Given 04/19/2019 12:51 PM SOCCER BALL ASSEMBLER 30 mg Lactated Ringer's (LR) infusion 30 mL/hr, intravenous, Continuous, Starting on Valeria 04/18/19 at 1000, Pre-Op, Use a 500 ml bag for End Stage Renal Disease Patients New Bag 04/18/2019 1:34 PM SOCCER BALL ASSEMBLER New Bag 04/18/2019 12:00 PM SOCCER BALL ASSEMBLER New Bag 04/18/2019 10:02 AM SOCCER BALL ASSEMBLER 30 mL/hr 30 mL/hr ondansetron (ZOFRAN) injection 4 mg 4 mg, intravenous, Administer over 2 Minutes, Every 6 hours PRN, nausea, vomiting, Starting on Valeria 04/18/19 at 1612, Proceed to prochlorperazine if no relief within 30 minutes. Given 04/20/2019 4:25 AM SOCCER BALL ASSEMBLER 4 mg oxyCODONE (ROXICODONE) tablet 5 mg 5 mg, oral, Every 4 hours PRN, 1st line for pain, Starting on Mon04/19/19 at 1127, May repeat in 1 hour if pain is uncontrolled or increasing. Max 2 doses within 1 dosing interval., Indications: PainIndications:Pain Given 04/19/2019 7:52 PM SOCCER BALL ASSEMBLER 5 mg Given 04/19/2019 1:04 PM SOCCER BALL ASSEMBLER 5 mg scopolamine patch 72 hour 1 patch 1 patch, transdermal, Administer over 72 Hours, Once, On Valeria 04/18/19 at 1000, For 1 dose, Pre-Op, Apply to Dr. Lackey's patients, as well as to beach-chair position shoulder surgery patients, and to patients with a history of PONV and/or Motion Sickness. Do NOT administer to patients with a history of BPH or Glaucoma. Consult Anesthesiologist with any questions., Indications: Motion Sickness, Prevention of Motion Sickness, Prevention of Post-Operative Nausea and VomitingIndications:Motion Sickness,Prevention of Motion Sickness,Prevention of Post-Operative Nausea and Vomiting Medication Applied 04/18/2019 9:46 AM SOCCER BALL ASSEMBLER 1 patch Behind Right Ear sodium chloride 0.9% flush 0.5-20 mL 0.5-20 mL, intra-catheter, Every 8 hours scheduled, First dose on Valeria 04/18/19 at 1645, Flush volume based on line type and size. Given 04/19/2019 8:28 PM SOCCER BALL ASSEMBLER 10 mL venlafaxine XR (EFFEXOR-XR) extended release capsule 150 mg 150 mg, oral, Nightly, First dose on Valeria 04/18/19 at 2100, Do not crush, chew, cut, dissolve, open or otherwise manipulate tablet/capsule., Indications: Anxiety with DepressionIndications:Anxie ty with Depression Given 04/19/2019 8:26 PM SOCCER BALL ASSEMBLER 150 mg Given 04/18/2019 8:17 PM SOCCER BALL ASSEMBLER 150 mg documented in this encounter Discontinued Medications Medication Sig Discontinue Reason Start Date End Da te soy isofla/blk cohosh/mag bark (ESTROVEN ORAL) Take 1 tablet by mouth nightly Unsure med dosage hs Stop Taking at Discharge 04/20/2019 vitamin E 400 unit capsule Take 400 Units by mouth nightly hs Stop Taking at Discharge 04/20/2019 ondansetron (ZOFRAN) 8 mg tablet Take one tablet at 11:00am with miralax bowel prep. Take one tablet 8 hours for nausea. Stop Taking at Discharge 03/27/2019 04/20/2019 neomycin (MYCIFRADIN) 500 mg tablet Take two tablets by mouth at 1pm, 2pm, and 10pm the day before surgery Stop Taking at Discharge 03/27/2019 04/20/2019 metroNIDAZOLE (FLAGYL) 500 mg tablet Take one tablet at 1:00pm, 2:00pm, and 10:00pm day prior to surgery Stop Taking at Discharge 03/27/2019 04/20/2019 documented as of this encounter Active and Recently Administered Medications Times are shown in SOCCER BALL ASSEMBLER. Scheduled Medication Order 04/18/2019 04/19/2019 04/20/2019 acetaminophen (TYLENOL) tablet 1,000 mg (COMPLETED) 1,000 mg, oral, Once, On Valeria 04/18/19 at 1000, For 1 dose, Pre-Op, Give upon arrival to holding area. , Indications: Pre-Emptive Analgesia 0945 (Given - Provider: Gosia Whaley, ERASTO) acetaminophen (TYLENOL) tablet 1,000 mg (CANCELED) 1,000 mg, oral, Every 8 hours scheduled, First dose on Valeria 04/18/19 at 2000, Indications: Pain 2017 (Given - Provider: Sue Hoffman, ERASTO) 0256 (Given - Provider: Sue Hoffman RN)1251 (Given - Provider: Cheryl Gutierres, ERASTO)2027 (Given - Provider: Rose Milian, ERASTO) 0306 (Given - Provider: Rose Milian, ERASTO) acetaminophen (TYLENOL) tablet 1,000 mg 1,000 mg, oral, Every 6 hours scheduled, First dose (after last modification) on 04/20/19 at 1200, Indications: Pain 1131 (Given - Provider: Birdie Lui, ERASTO) alvimopan (ENTEREG) capsule 12 mg (COMPLETED) 12 mg, oral, Once, On Valeria 04/18/19 at 1000, For 1 dose, Pre-Op, Give immediately upon arrival to holding area (do not prescribe if patient is currently receiving chronic opioid treatment). , Indications: Postoperative Ileus, Postoperative ileus prophylaxis 0946 (Given - Provider: Gosia Whaley, ERASTO) alvimopan (ENTEREG) capsule 12 mg (CANCELED) 12 mg, oral, 2 times daily, First dose on Mon04/19/19 at 0900, For 7 days, Discontinue after first postoperative bowel movement., Indications: Postoperative Ileus 0908 (Given - Provider: Cheryl Gutierres, RN)2027 (Not Given - Provider: Rose Milian, ERASTO - Reason: Contraindicated) aspirin chewable tablet 81 mg 81 mg, oral, Nightly, First dose (after last modification) on Mon04/19/19 at 2100, Indications: prevention of thrombosis 2026 (Given - Provider: Rose Milian, RN) aspirin tablet 325 mg (CANCELED) 325 mg, oral, Nightly, First dose on Valeria 04/18/19 at 2100, Indications: prevention of thrombosis 2016 (Given - Provider: Sue Hoffman, ERASTO) celecoxib (CeleBREX) capsule 400 mg (COMPLETED) 400 mg, oral, Once, On Valeria 04/18/19 at 1000, For 1 dose, Pre-Op, Give upon arrival to holding area., Indications: Pre-Emptive Analgesia 0946 (Given - Provider: Gosia Whaley, ERASTO) enoxaparin (LOVENOX) syringe 40 mg 40 mg, subcutaneous, Every 12 hours scheduled, First dose (after last modification) on Mon04/19/19 at 0200, RN to teach home administration with every injection., Indications: Deep Vein Thrombosis Prevention 025 (Given - Provider: Sue Hoffman RN)09 (Given - Provider: Cheryl Gutierres, ERASTO)2026 (Given - Provider: Rose Milian, ERASTO) 09 (Given - Provider: Birdie Lui, ERASTO) ertapenem (INVanz) 1,000 mg in sodium chloride 0.9% 100 mL IVPB (COMPLETED) 1,000 mg, intravenous, at 200 mL/hr, Administer over 30 Minutes, Once, On Valeria 04/18/19 at 1115, For 1 dose, Pre-Op, Do not mix with dextrose or other medications. Mini-bag Plus, Indications: Prophylaxis, Surgical 1107 (New Bag - Provider: Valerie Lizarraga CRNA) gabapentin (NEURONTIN) capsule 300 mg (COMPLETED) 300 mg, oral, Once, On Valeria 04/18/19 at 1000, For 1 dose, Pre-Op, Give upon arrival to holding area. , Indications: Pre-Emptive Analgesia 0946 (Given - Provider: Gosia Whaley RN) gabapentin (NEURONTIN) capsule 300 mg 300 mg, oral, 2 times daily, First dose on Valeria 04/18/19 at 2100 2017 (Given - Provider: Sue Hoffman, ERASTO) 0908 (Given - Provider: Cheryl Gutierres RN)2026 (Given - Provider: Rose Milian, ERASTO) 0948 (Given - Provider: Birdie Lui, ERASTO) heparin 5,000 unit/mL injection 5,000 Units (COMPLETED) 5,000 Units, subcutaneous, Once, On Valeria 04/18/19 at 1000, For 1 dose, Pre-Op, Can give immediately after neuraxial block if no complications per anesthesia., Indications: Deep Vein Thrombosis Prevention 0946 (Given - Provider: Gosia Whaley RN) ketorolac (TORADOL) injection 30 mg (CANCELED) 30 mg, intravenous, Every 8 hours, First dose on Mon04/19/19 at 1200, For 9 doses, For Adult IV push, administer over 15 seconds 1251 (Given - Provider: Cheryl Gutierres RN)2026 (Given - Provider: Rose Milian, ERASTO) 0306 (Given - Provider: Rose Milian, ERASTO) scopolamine patch 72 hour 1 patch (CANCELED) 1 patch, transdermal, Administer over 72 Hours, Once, On Vaelria 04/18/19 at 1000, For 1 dose, Pre-Op, Apply to Dr. Lackey's patients, as well as to beach-chair position shoulder surgery patients, and to patients with a history of PONV and/or Motion Sickness. Do NOT administer to patients with a history of BPH or Glaucoma. Consult Anesthesiologist with any questions., Indications: Motion Sickness, Prevention of Motion Sickness, Prevention of Post-Operative Nausea and Vomiting 0946 (Medication Applied - Provider: Gosia Whaley RN)1613 (Due: Medication Removed - Provider: Jaya Petty RN - Comment: Time automatically adjusted from order being discontinued) sodium chloride 0.9% flush 0.5-20 mL 0.5-20 mL, intra-catheter, Every 8 hours scheduled, First dose on Valeria 04/18/19 at 1645, Flush volume based on line type and size. 1613 (Not Given - Provider: Jaya Petty RN - Reason: IV Infusing) 0148 (Not Given - Provider: Sue Hoffman RN - Reason: IV Infusing)0417 (Not Given - Provider: Sue Hoffman RN - Reason: IV Infusing)1635 (Not Given - Provider: Cheryl Gutierres, ERASTO - Reason: IV Infusing)2027 (Given - Provider: Rose Milian, ERASTO) 0523 (Not Given - Provider: Rose Milian, ERASTO - Reason: Other)1400 (Due) venlafaxine XR (EFFEXOR-XR) extended release capsule 150 mg 150 mg, oral, Nightly, First dose on Valeria 04/18/19 at 2100, Do not crush, chew, cut, dissolve, open or otherwise manipulate tablet/capsule., Indications: Anxiety with Depression 2016 (Given - Provider: Sue Hoffman RN) 2025 (Given - Provider: Rose Milian, ERASTO) Continuous Medication Order 04/18/2019 04/19/2019 04/20/2019 dextrose 5% and sodium chloride 0.45% with potassium chloride 20 mEq/L infusion (premix) ()(Linked Group 1) 125 mL/hr, intravenous, Continuous, Starting on Valeria 04/18/19 at 1645, For 8 hours 1634 (New Bag - Provider: Jaya Petty, ERASTO) 0026 (Stopped - Provider: Sue Hoffman RN) dextrose 5% and sodium chloride 0.45% with potassium chloride 20 mEq/L infusion (premix) (CANCELED)(Linked Group 1) 80 mL/hr, intravenous, Continuous, Starting on Mon04/19/19 at 0034, For 25 hours, Saline lock after 2 liters. 0026 (New Bag - Provider: Sue Hoffman RN)1307 (New Bag - Provider: Cheryl Gutierres, ERASTO) HYDROmorphone in 0.9% sodium chloride (DILAUDID) 10 mg/50 mL (0.2 mg/mL) infusion (premix) (CANCELED) Continuous dose: None, COMPUTER GAME TESTER dose: Other / 0.1mg, COMPUTER GAME TESTER lockout: 10 Minutes, 1 hour limit: Other / 0.6 mg, intravenous, Continuous, Starting on Valeria 04/18/19 at 1500, Until Mon04/19/19 at 1127, 50 mL, Indications: Pain, Routine 1506 (New Bag - Provider: Hue Hernández, ERASTO)1627 (Handoff - Provider: Jaya Petty, RN)1911 (Handoff - Provider: Jaya Petyt, ERASTO)2319 (Stopped (Dual Sign) - Provider: Sue Hoffman RN - Comment: COMPUTER GAME TESTER malfunction, changed to new machine and cartridge)2323 (New Bag - Provider: Sue Hoffman, RN) 0743 (Handoff - Provider: Sue Hoffman RN)1256 (Stopped (Dual Sign) - Provider: Cheryl Gutierres RN) Lactated Ringer's (LR) infusion (CANCELED) 30 mL/hr, intravenous, Continuous, Starting on Valeria 04/18/19 at 1000, Pre-Op, Use a 500 ml bag for End Stage Renal Disease Patients 1002 (New Bag - Provider: Gosia Whaley RN)1200 (New Bag - Provider: Valerie Lizarraga CRNA)1334 (New Bag - Provider: Valerie Lizarraga CRNA)1433 (Anesthesia Volume Adjustment - Provider: Valerie Lizarraga CRNA) PRN Medication Order 04/18/2019 04/19/2019 04/20/2019 ALPRAZolam (XANAX) tablet 0.25 mg 0.25 mg, oral, 3 times daily PRN, anxiety, Starting on Valeria 04/18/19 at 1612 clindamycin (CLEOCIN) 600 mg, gentamicin (GARAMYCIN) 240 mg in sodium chloride 0.9 % 500 mL irrigation solution (CANCELED) As needed, Starting on Valeria 04/18/19 at 1401, Intra-Op 1401 (Given - Provider: Benito Clifton MD) HYDROmorphone (DILAUDID) injection 0.2 mg 0.2 mg, intravenous, Administer over 2 Minutes, Every 4 hours PRN, 2nd line for pain, Starting on Mon04/19/19 at 1127, May administer 1 hour after second dose of 1st line analgesic agent for uncontrolled or increasing pain., Indications: Pain ibuprofen (ADVIL,MOTRIN) tablet/capsule 600 mg 600 mg, oral, 3 times daily PRN, 1st line for pain, alternate with APAP, Starting on 04/20/19 at 0746 ondansetron (ZOFRAN) injection 4 mg 4 mg, intravenous, Administer over 2 Minutes, Every 6 hours PRN, nausea, vomiting, Starting on Valeria 04/18/19 at 1612, Proceed to prochlorperazine if no relief within 30 minutes. 0425 (Given - Provider: Rose Milian RN) oxyCODONE (ROXICODONE) tablet 5 mg 5 mg, oral, Every 4 hours PRN, 1st line for pain, Starting on 04/19/19 at 1127, May repeat in 1 hour if pain is uncontrolled or increasing. Max 2 doses within 1 dosing interval., Indications: Pain 1304 (Given - Provider: Cheryl Gutierres RN)1952 (Given - Provider: Cheryl Gutierres RN) prochlorperazine (COMPAZINE) injection 10 mg 10 mg, intravenous, Every 6 hours PRN, nausea, vomiting, Starting on Valeria 04/18/19 at 1612, If not relieved by ondansetron within 30 minutes. sodium chloride 0.9 % irrigation (CANCELED) As needed, Starting on Valeria 04/18/19 at 1400, Intra-Op 1400 (Given - Provider: Da Hodge MD) sodium chloride 0.9 % irrigation (CANCELED) As needed, Starting on Valeria 04/18/19 at 1131, Intra-Op 1131 (Given - Provider: Benito Clifton MD) sodium chloride 0.9% flush 0.5-20 mL 0.5-20 mL, intra-catheter, As needed, line care, Starting on Valeria 04/18/19 at 1612, Flush volume based on line type and size. Flush before and after each use. Linked Groups Order Group 1: dextrose 5% and sodium chloride 0.45% with potassium chloride 20 mEq/L infusion (premix) ()Jump to med 125 mL/hr, intravenous, Continuous, Starting on Valeria 04/18/19 at 1645, For 8 hours Followed by dextrose 5% and sodium chloride 0.45% with potassium chloride 20 mEq/L infusion (premix) (CANCELED)Jump to med 80 mL/hr, intravenous, Continuous, Starting on Mon04/19/19 at 0034, For 25 hours, Saline lock after 2 liters. documented in this encounter Orders Medications Ordered That Ole ht Not Have Been Administered Count Last Ordered Date First Ordered Date ibuprofen (ADVIL,MOTRIN) tab let/capsule 600 mg 1 04/20/2019 HYDROmorphone (DILAUDID) injection 0.2 mg 2 04/19/2019 04/18/2019 acetaminophen (TYLENOL) tablet 500 mg 1 09/2018 ALPRAZolam (XANAX) tablet 0.25 mg 1 019 clindamycin (CLEOCIN) 600 mg , gentamicin (GARAMYCIN) 240 mg in sodium chloride 0.9 % 500 mL irrigation solution 1 04/18/2019 diphenhydrAMINE (BENADRYL) i njection 12.5 mg 1 04/18/2019 enoxaparin (LOVENOX) syringe 40 mg 1 2018 ertapenem (INVanz) 1,000 mg in sodium chloride 0.9% 100 mL IVPB 1 04/18/2019 fentaNYL (SUBLIMAZE) preserv ative free injection 25 mcg 1 04/18/2019 hydrALAZINE (APRESOLINE) injection 5 mg 1 1 06/19/2018 HYDROcodone-acetaminophen (N ORCO) 5-325 mg per tablet 1 tablet 1 04/18/2019 labetalol (NORMODYNE,TRANDAT E) injection 5 mg 1 04/18/2019 Lactated Ringer's (LR) infusion 1 9 meperidine (DEMEROL) preserv ative free injection 12.5 mg 1 04/18/2019 ondansetron (ZOFRAN) injection 4 mg 1 04/18 prochlorperazine (COMPAZINE) injection 10 mg 1 04/18/2019 prochlorperazine (COMPAZINE) injection 5 mg 1 04/18/2019 sodium chloride 0.9 % irrigation 2 04/18/20 19 sodium chloride 0.9% flush 0.5-20 mL 2 09/2018 Diet Count Last Ordered Date First Orde red Date ADULT DISCHARGE DIET 1 04/20/2019 Nursing Count Last Ordered Date First Orde red Date DISCHARGE ACTIVITY 3 04/20/2019 DISCHARGE CALL PROVIDER 4 04/20/2019 DISCHARGE DRESSING 3 04/20/2019 EVANS CATHETER - DISCONTINUE 1 04/19/2019 Transfer Count Last Ordered Date First Orde red Date TRANSFER PATIENT 1 04/18/2019 documented in this encounter Care Teams Errand Runner Relationship Specialty Start Date End Date Janine Terry MD [address] [place] [id number] PCP - General Family Medicine 03/06/19 01/19/22 Adam English DO [address] [place] [id number] [employer] Gastroenterology 03/26/19 06/05/23 documented as of this encounter
--- OUTSIDE RECORDS SUMMARY | 2024-05-20 13:10 | XMS_ITS | Encounter Summary ---
Author Organization [facility] Healthcare Address [address] [place] [address] Care Team Providers Care Tube And Rod Straightener Name Role Phone Janine Terry MD Primary Care Provider [phone] Adam English DO Unavailable [phone] Encounter Details Date Type Department Care Team (Latest Contact Info) Description 03/27/2019 6:48 PM CATARACT LENS GENERATOR - 03/27/2019 11:59 PM CATARACT LENS GENERATOR Hospital Encounter [facility] [address] [place] [address] [id number] Discharge Disposition: Discharge to home or self care Social History Tobacco Use Types Packs/Day Years Used Date Smoking Tobacco: Never Comments Unknown Sex and Gender Information Value Date Recorded Sex Assigned at Not on file Legal Sex Female 2:22 AM CATARACT LENS GENERATOR Gender Identity Female 05/18/2019 7:17 PM CATARACT LENS GENERATOR Sexual Orientation Straight 05/18/2019 7: 17 PM CATARACT LENS GENERATOR documented as of this encounter Medications at Time of Discharge ALPRAZolam (XANAX) 0.25 mg tablet Take 1 tablet (0.25 mg total) by mouth 3 (three) times a day as needed for anxiety aspirin 325 mg tabletIndications:pr evention of thrombosis Take 325 mg by mouth nightly 0 uwoshnw-esronllvr-ti nc tablet Take 1 tablet by mouth [...] 0 03/19/2019 0 L gasseri/B bifidum/B longum ([facility]) Take 1 tablet by [...] Comments CT BODY OUTSIDE REFERENCE Routine 03/27/2019 6:48 PM CATARACT LENS GENERATOR Diagnosis unknown documented in this encounter Results * CT Body Outside Reference (03/27/2019 6:48 PM CATARACT LENS GENERATOR) Impressions RAD_P[facility] - 03/27/2019 6:48 PM CATARACT LENS GENERATOR These images are for Reference purposes only and have not been reviewed by [facility]iology. ??There will be no report generated by a [facility] Radiologist. Narrative RAD_PACS_[facility] - 03/27/2019 6:48 PM CATARACT LENS GENERATOR EXAMINATION: ??Images For Reference Purposes Only Da Hodge MD IMG CT PROCEDURES Final Result [facility] documented in this encounter Visit Diagnoses Not on filedocumented in this encounter Care Teams Tube And Rod Straightener Relationship Specialty Start Date End Date Janine Terry MD [address] [place] [address] PCP - General Family Medicine 03/06/19 01/19/22 Adam English DO [address] [place] [address] Manager Plan Gastroenterology 03/26/19 06/05/23 documented as of this encounter
--- OUTSIDE RECORDS SUMMARY | 2024-05-20 13:10 | XMS_ITS | Encounter Summary ---
Author Organization [facility] Healthcare Address [address] [place] [address] Care Team Providers Care Machine Heel Seat Fitter Name Role Phone Janine Terry MD Primary Care Provider [phone] Adam English DO Unavailable [phone] Janine Terry MD Primary Care Provider [phone] Mellissa Rodríguez Primary Care Provider Bj Montaño MD Primary Care Provider [phone] Odilon Chester MD Unavailable Roosevelt Thomas MD Unavailable [phone] Leticia Thorne MANAGER TECHNICAL SUPPORT Primary Care Provider [phone] Encounter Details Date Type Department Care Team (Late st Contact Info) Description 12/26/2019 Telephone [facility] [address] [place] [address] Room 3420 (Third Floor) [place] [address] Julia Osborne, RN Social History Tobacco Use Types Packs/Day Years Used Date Smoking Tobacco: Never Smokeless Tobacco: Never Alcohol Use Standard Drinks/Week Comments Not Currently 0 (1 standard drink = 0.6 oz pur e alcohol) Comments No Sex and Gender Information Value Date Recorded Sex Assigned at Not on file Legal Sex Female 2:22 AM FORECLOSURE CLERK Gender Identity Female 05/18/2019 7:17 PM FORECLOSURE CLERK Sexual Orientation Straight 05/18/2019 7: 17 PM FORECLOSURE CLERK documented as of this encounter Plan of Treatment Not on file documented as of this encounter Visit Diagnoses Not on filedocumented in this encounter Additional Health Concerns Infection Onset Date Last Indicated Resolved Time COVID: Suspected 12/26/2019 12/26/2019 12/27/2019 2:58 AM CDT Respiratory Infection (MILAGROS), contact + droplet Comment:Automatically added due to negative COVID-19 result. 12/27/2019 12/27/2019 01/10/2020 3:0 6 AM CDT COVID: Suspected 05/12/2022 05/12/2022 05/12/2022 2:53 PM FORECLOSURE CLERK COVID: Suspected 06/22/2022 06/22/2022 06/22/2022 4:37 PM FORECLOSURE CLERK COVID19 06/22/2022 06/22/2022 07/02/2022 3:05 AM FORECLOSURE CLERK COVID: Recovered Comment:Added based on recent COVID infection. 07/02/2022 07/04/2022 09/30/2022 3:05 AM C DT documented as of this encounter Care Teams Machine Heel Seat Fitter Relationship Specialty Start Date End Date Janine Terry MD [address] [place] [address] PCP - General Family Medicine 03/06/19 01/19/22 Janine Terry MD [address] [place] [address] PCP - General 01/20/22 01/20/22 Mellissa Rodríguez PA [address] [place] [address] PCP - General Physician Buyer Assistant 01/21/22 04/14/22 Bj Montaño MD [address] [place] [address] PCP - General Family Medicine 04/15/22 02/19/24 Leticia Thorne, MANAGER TECHNICAL SUPPORT [address] [place] [address] PCP - General Family Medicine 02/20/24 Adam English DO [address] [place] [address] Pipeline Systems Operator Gastroenterology 03/26/19 06/05/23 Odilon Chester MD [address] [facility] [place] [address] Referring Physician Gastroenterology 06/06/23 Roosevelt Thomas MD [address] [facility] [place] [address] Fellow Pulmonary Disease 06/06/23 documented as of this encounter
--- OUTSIDE RECORDS SUMMARY | 2024-05-20 13:10 | XMS_ITS | Encounter Summary ---
Author Organization [facility] Address [address] [place] [address] Phone Care Team Providers Care Specialty Plant Supervisor Name Role Phone Janine Terry MD Primary Care Provider [phone] Adam English DO Unavailable [phone] Reason for Visit * Reason Comments Patient Education Encounter Details Date Type Department Care Team (Latest Contact Info) Description 04/03/2019 1:00 PM MOLD REPAIRER Clinical Support [facility] Surgery [facility] 8th [place] [address] [place] [id number] Diverticulitis (Primary Dx) Social History Tobacco Use Types Packs/Day Years Used Date Smoking Tobacco: Never Smokeless Tobacco: Never Alcohol Use Standard Drinks/Week Comments Not Currently 0 (1 standard drink = 0.6 oz pur e alcohol) Comments Unknown Sex and Gender Information Value Date Recorded Sex Assigned at Not on file Legal Sex Female 2:22 AM MOLD REPAIRER Gender Identity Female 05/18/2019 7:17 PM MOLD REPAIRER Sexual Orientation Straight 05/18/2019 7: 17 PM MOLD REPAIRER documented as of this encounter Progress Notes * Silvia Nguyen LPN - 04/03/2019 1:00 PM CST Referred by Janine Terry MD for Patient Education . Chief Complaint: Josy Fiore is a 59 y.o. female for pre-operative education. Vitals: There were no vitals taken for this visit.There is no height or weight on file to calculate BMI. Preoperative Education: Education provided which included: pain control, DVT prevention, SSI prevention, ambulation, diet/bowel activity, incentive spirometerusing the following method(s): written and verbal information provided. Impression and Plan: During today's visit, I discussed the following with the patient: Pre-op prep: bowel prep, antibiotics, CHG cleanser, immunonutrition and carb loading. Surgical procedure: Laparoscopic sigmoid Post-op pain management: multimodal Post-op diet: regular DVT prevention: Lovenox Incentive spirometer: 10x per hour Ambulation Lifestyle: recover from surgery Duration of Visit: 30 minutes Signature: Silvia [place] LPN 04/03/2019 1:32 PM REPAIRER documented in this encounter Plan of Treatment Not on file documented as of this encounter Visit Diagnoses Diagnosis Diverticulitis- Primary Diverticulitis of colon (without mention of hemorrhage) documented in this encounter Care Teams Specialty Plant Supervisor Relationship Specialty Start Date End Date Janine Terry MD [address] [place] [address] PCP - General Family Medicine 03/06/19 01/19/22 Adam English DO [address] [place] [address] Certified Prosthetist Vice President Gastroenterology 03/26/19 06/05/23 documented as of this encounter
--- OUTSIDE RECORDS SUMMARY | 2024-05-20 13:10 | XMS_ITS | Encounter Summary ---
Author Organization [facility] Address [address] [facility] [address] [place] [address] Phone Care Team Providers Care Patient Relations Director Name Role Phone Janine Terry MD Primary Care Provider [phone] Adam English DO Unavailable [phone] Encounter Details Date Type Department Care Team (Late st Contact Info) Description 06/07/2019 Orders Only [facility] Surgery [address] [place] [address] Da Hodge MD [address] [facility] [phone] [place] [address] Social History Tobacco Use Types Packs/Day Years Used Date Smoking Tobacco: Never Smokeless Tobacco: Never Alcohol Use Standard Drinks/Week Comments Not Currently 0 (1 standard drink = 0.6 oz pur e alcohol) Comments No Sex and Gender Information Value Date Recorded Sex Assigned at Not on file Legal Sex Female 2:22 AM SIGNAL INSPECTOR Gender Identity Female 05/18/2019 7:17 PM SIGNAL INSPECTOR Sexual Orientation Straight 05/18/2019 7: 17 PM SIGNAL INSPECTOR documented as of this encounter Ordered Prescriptions Prescription Sig Dispense Quantity Refills Last Filled Start Date End Date gabapentin (NEURONTIN) 100 mg capsule Take 1 capsule (100 mg total) by mouth 3 (three) times a day 90 capsule 06/07/2019 2 documented in this encounter Plan of Treatment Not on file documented as of this encounter Visit Diagnoses Not on filedocumented in this encounter Care Teams Patient Relations Director Relationship Specialty Start Date End Date Janine Terry MD [address] [place] [address] PCP - General Family Medicine 03/06/19 01/19/22 Adam English DO [address] [place] [address] Carton Stapler Gastroenterology 03/26/19 06/05/23 documented as of this encounter
--- OUTSIDE RECORDS SUMMARY | 2024-05-20 13:10 | XMS_ITS | Encounter Summary ---
Author Organization [facility] Healthcare Address [address] [place] [address] Care Team Providers Care Wax Cutter Name Role Phone Janine Terry MD Primary Care Provider Adam English DO Unavailable [phone] Encounter Details Date Type Department Care Team (Late st Contact Info) Description 12/26/2019 4:55 [place] [address] Diarrhea, unspecified type; Fever, unspecified fever cause; Sore throat; Generalized muscle ache; Arthralgia, unspecified joint Social History Tobacco Use Types Packs/Day Years Used Date Smoking Tobacco: Never Smokeless Tobacco: Never Alcohol Use Standard Drinks/Week Comments Not Currently 0 (1 standard drink = 0.6 oz pur e alcohol) Comments No Sex and Gender Information Value Date Recorded Sex Assigned at Not on file Legal Sex Female 2:22 AM WINDOW SHADE INSTALLER Gender Identity Female 05/18/2019 7:17 PM WINDOW SHADE INSTALLER Sexual Orientation Straight 05/18/2019 7: 17 PM WINDOW SHADE INSTALLER documented as of this encounter Miscellaneous Notes * Result Encounter Note - Talia Rogers RN - 12/27/2019 12:16 PM CDT Negative Covid-19 Result: Not Cleared to Work - Please continue to monitor your symptoms, and call your Occupational Health office for clearance to return to work when you are symptom free and have been free of fever for 24 hours (temp less [id number]) without the use of fever-reducing medications. Other every day recommendations are to: - Follow the stay at home orders in your area - Continue social distancing. Keep a distance of approximately 6 feet from other people whenever possible (spacing out if you are in a line, leaving 2 seats in between others at a waiting room when possible). - Wash your hands often with soap and water for at least 20 seconds. If needed, use a hand repair manager that contains at least 60% alcohol. - Clean and disinfect frequently touched surfaces such as tables, doorknobs, countertops, etc., daily. - Avoid touching your eyes, nose, and mouth as much as possible. - Do not share eating or drinking utensils. - Most importantly, if you start to develop symptoms including fever, cough and shortness of breath, please reach back out to us. documented in this encounter Plan of Treatment Not on file documented as of this encounter Procedures Procedure Name Priority Date/Time Associated Diagnosis Comments COVID-19 CORONAVIRUS RNA Routine 12/26/2019 4:53 PM CDT Diarrhea, unspecified type Fever, unspecified fever cause Sore throat Generalized muscle ache Arthralgia, unspecified joint documented in this encounter Results * COVID-19 Coronavirus RNA Nasopharyngeal (12/26/2019 4:53 PM CDT) Pathologist [facility] COVID-19 RNA Not Detected BRITTANY ALMANZAR Comment: Interpretive Data Testing performed at [facility] Molecular Infectious Disease Laboratory. The 2019-Novel Coronavirus Assay (COVID-19) Real Time RT-PCR assay [...] 12/27/2019 2:57 AM CDT Patient is employed by:->[facility] Is the patient experiencing any symptoms consistent with COVID (eg. Fever, cough, shortness of breath)?->Yes Fever; sore throat; hoarseness; joint aches; muscle aches; new diarrhea What is the reason for testing?->Symptoms compatible with COVID-19 in high-risk group (defined above in process inst.) Flori Tapia MD LAB MICROBIOLOGY - GENERAL ORDERABLES Final Result [facility] [place] [address] documented in this encounter Visit Diagnoses Diagnosis Diarrhea, unspecified type Fever, unspecified fever cause Sore throat Acute pharyngitis Generalized muscle ache Arthralgia, unspecified joint documented in this encounter Additional Health Concerns Infection Onset Date Last Indicated Resolved Time COVID: Suspected 12/26/2019 12/26/2019 12/27/2019 2:58 AM CDT documented as of this encounter Care Teams Wax Cutter Relationship Specialty Start Date End Date Janine Terry MD [address] [place] [address] PCP - General Family Medicine 03/06/19 01/19/22 Adam English DO [address] [place] [address] Communication Manager Gastroenterology 03/26/19 06/05/23 documented as of this encounter
--- OUTSIDE RECORDS SUMMARY | 2024-05-20 13:10 | XMS_ITS | Encounter Summary ---
Author Organization [facility] Healthcare Address [address] [place] [address] Care Team Providers Care Caption Writer Name Role Phone Janine Terry MD Primary Care Provider [phone] RoemojganAdam DO Unavailable [phone] Encounter Details Date Type Department Care Team (Late st Contact Info) Description 04/18/2019 11:10 AM FLAME ANNEALING MACHINE SETTER - 04/18/2019 3:10 PM [facility] Surgery [facility] Operating Room [address] [place] [address] Da Hodge MD [address] [facility] [id number] [place] [address] RESECTION SIGMOID COLON - LAPAROSCOPIC Surgery Details Date/Time Status Location OR Service Patient Class Case Class Case Type Trauma Case? 04/18/2019 11:10 AM Posted [facility] OPERATING ROOM OR 01 Colorectal Surgery Admit Elective Panel 1 Procedure LRB Anes Op Region Wound Class Comments RESECTION SIGMOID COLON - LAPAROSCOPIC N/A General Abdomen Class II - Clean Contaminated Panel 2 Procedure LRB Anes Op Region Wound Class Comments PLACEMENT PREOPERATIVE STENT - URETERAL N/A General Ureter Class II - Tami n Contaminated Surgeon Surgeon Role Service Panel Glenroy Walker MD Fellow Colorectal 1 Benito Clifton MD Primary Urology 2 Da Hodge MD Primary Colorectal 1 documented in this encounter Social History Tobacco Use Types Packs/Day Years Used Date Smoking Tobacco: Never Smokeless Tobacco: Never Alcohol Use Standard Drinks/Week Comments Not Currently 0 (1 standard drink = 0.6 oz pur e alcohol) Comments No Sex and Gender Information Value Date Recorded Sex Assigned at Not on file Legal Sex Female 2:22 AM FLAME ANNEALING MACHINE SETTER Gender Identity Female 05/18/2019 7:17 PM FLAME ANNEALING MACHINE SETTER Sexual Orientation Straight 05/18/2019 7: 17 PM FLAME ANNEALING MACHINE SETTER documented as of this encounter Last Filed Vital Signs Vital Sign Reading Time Taken Comments Blood Pressure 125/70 04/18/2019 3:10 PM FLAME ANNEALING MACHINE SETTER Pulse 73 04/18/2019 3:10 PM FLAME ANNEALING MACHINE SETTER Temperature 36.7 ??C (98.1 ??F) 04/18/2019 2:40 PM CS T Respiratory Rate 15 04/18/2019 3:10 PM FLAME ANNEALING MACHINE SETTER Oxygen Saturation 93% 04/18/2019 3:10 PM FLAME ANNEALING MACHINE SETTER Inhaled Oxygen Concentration - - Weight - - Height - - Body Mass Index - - documented in this encounter Discharge Summaries * Ori Ferro MD - 04/20/2019 1:22 PM CST Inpatient Discharge Summary BRIEF OVERVIEW Admitting Provider: Da Hodge MD Discharge Provider: Da Hodge MD Primary Care Physician at Discharge: Janine Terry MD [phone] Admission Date: 04/18/2019 Discharge Date: 04/20/2019 Admission Location: [facility] Primary Discharge Diagnosis: Recurrent diverticulitis Secondary Discharge [...] tolerated her procedure well. She had her WATER AEROBICS INSTRUCTOR d/c'd, evans d/c'd on POD1. She was voiding in pain controlled. She had several BM and passed flatus on POD1. On LCY1bjn drain was discontinued and she was discharged [...] tablet Take 325 mg by mouth nightly ymjulnh-wcvoilsns-yijr tablet Take 1 tablet by mouth nightly [...] 4 (four) hours as needed for pain [facility] ORAL Take 1 [...] Da Hodge MD at 04/24/2019 4:38 PM FLAME ANNEALING MACHINE SETTER E ANNEALING MACHINE SETTER E ANNEALING MACHINE SETTER documented in this encounter Medications at Time [...] Take 325 mg by mouth nightly 0 enevmnc-umfomgqdx-lf nc tablet Take 1 tablet by mouth [...] for pain 0 L gasseri/B bifidum/B longum ([facility] ORAL) Take 1 [...] care provider has access to complete EMR E ANNEALING MACHINE SETTER * Jacqueline Cheek MD - 04/20/2019 6:52 AM CST [facility] Daily Progress Note Colon and Rectal Surgery [...] intact with dermabond. No erythema/swelling/drainage noted. Drains: KRIHSAN with serosanguinous output. Skin: No new rashes, [...] Da Hodge MD at 04/24/2019 4:42 PM FLAME ANNEALING MACHINE SETTER E ANNEALING MACHINE SETTER E ANNEALING MACHINE SETTER * Marjorie Toussanit, PT - 04/19/2019 10:10 AM CST Physical [...] 10/03/2018 ??? GALLBLADDER SURGERY 2012 ??? HYSTERECTOMY 2000 TLH, R SO ??? LAPAROSCOPIC OVARIAN CYSTECTOMY ??? LESIONECTOMY Right 2009 benign skin lesion removed from R anterior chest ??? SINUS SURGERY 1984 ??? SKIN CANCER EXCISION Right 1994 V-Y flap R hinduism for BCCa ??? TERATOMA EXCISION Left 1995 L SO ??? TONSILLECTOMY AND ADENOIDECTOMY 1963 ??? TONSILLECTOMY AND ADENOIDECTOMY 1961 Prior Level of Functioning Prior Function Level of Mccormick: Independent with ADLs, Independent functional transfers, Independent [...] Other (Comment) Response to Interventions: pt uses WATER AEROBICS INSTRUCTOR as needed Home Evaluation Home Living Type [...] Mobility Equipment None Prior Function Level of Mccormick Independent with ADLs;Independent functional transfers;Independent with ambulation Lives With Spouse Receives Help From Spouse/Significant other;Family Fall within the last 6 months No Pain Assessment Pain Assessment 0-10 Pain Score 4 Pain Type Surgical pain Pain Location Abdomen Pain Orientation Generalized Pain Interventions Repositioned;Physical Therapy;Other (Comment) Response to Interventions pt uses WATER AEROBICS INSTRUCTOR as needed Cognition Orientation Oriented X4 (person, [...] to Discharge Yes PT Evaluation Complete Yes E ANNEALING MACHINE SETTER * Adri Melendez MEAT DRESSER - 04/19/2019 7:07 AM CST [facility] Daily Progress Note Colon and Rectal Surgery [...] sodium chloride 0.9%, 0.5-20 mL, intra-catheter, Q8H [facility] venlafaxine XR, 150 mg, oral, Nightly Infusions: [...] Intake/Output Summary (Last 24 hours) at 04/19/2019 0707 Last data filed at 04/19/2019 0554 Gross [...] DVT PPx: lovenox Activity: with assist, PT Dc evans, void check Dispo: floor Adri Melendez, ANP-BC, EEG TECHNOLOGIST-BC Department of Colorectal Surgery -- Nurse Practitioner [employer] (w) [phone] Cosigned by Da Hodge MD at 04/24/2019 4:42 PM FLAME ANNEALING MACHINE SETTER E ANNEALING MACHINE SETTER E ANNEALING MACHINE SETTER * Sara Muir MD - 04/18/2019 5:39 PM CST Colorectal Surgery [facility] Post-op Check Note S: Ja Poole seen [...] her with prior evans catheters. Has pushed WATER AEROBICS INSTRUCTOR button x2. No nausea or vomiting since [...] diverticulitis s/p lap assisted sigmoidectomy. - IVF: d1rnjgIR @ 125 cc/hr, wean in AM per pathway - Diet: clear liquid diet, advance in AM if tolerating - Continue entereg until return of bowel function - Drain: continue in place; trend output - Pain control: WATER AEROBICS INSTRUCTOR, tylenol, gabapentin - D/c Evans POD1 - Continue home ASA 325mg, effexor, xanex - Strict I/Os - Ambulation within 4 hours arrival to floor - DVT ppx: lovenox, SCDs - AM labs Sara Muir MD PGY1, General Surgery [phone] Cosigned by Da Hodge MD at 04/24/2019 4:42 PM FLAME ANNEALING MACHINE SETTER E ANNEALING MACHINE SETTER E ANNEALING MACHINE SETTER documented in this encounter H&P Notes * Da Hodge MD - 04/18/2019 2:33 PM CST I have reviewed the H&P, examined the patient, and endorse the findings as written. Plan of Care : Based on the above findings, I consider Ja Poole to be an acceptable risk for :Procedure(s): RESECTION SIGMOID COLON - LAPAROSCOPIC PLACEMENT PREOPERATIVE STENT - URETERAL E ANNEALING MACHINE SETTER Source Note - Da Hodge MD - 03/26/2019 10:00 AM FLAME ANNEALING MACHINE SETTER Colorectal Surgery Consultation Consult requested by Jannie Terry MD for New Patient (Diverticulitis) . [...] surgery. Da Hodge MD 03/26/2019 10:40 AM E ANNEALING MACHINE SETTER * Glenroy Walker MD - 04/18/2019 10:16 AM CST I have reviewed the H&P, examined the patient, and endorse the findings as written. Plan of Care : Based on the above findings, I consider Ja Poole to be an acceptable risk for :Procedure(s): RESECTION SIGMOID COLON - LAPAROSCOPIC PLACEMENT PREOPERATIVE STENT - URETERAL Cosigned by Da Hodge MD at 04/18/2019 10:17 AM FLAME ANNEALING MACHINE SETTER E ANNEALING MACHINE SETTER E ANNEALING MACHINE SETTER Source Note - Judd Johns MD - 04/03/2019 3:20 PM FLAME ANNEALING MACHINE SETTER Images from the original note were not included. [facility] for Preoperative Assessment and Planning Preoperative Evaluation Record [facility]: 04/[facility]/19 Anesthesia Evaluation Ja Poole [...] per pt account) Pertinent negatives: hypertension ; CT ; valvular heart disease; valve replacement; atrial [...] cancer only. Cancer type: BCCa to R hinduism- s/p resection. Pertinent negatives: diabetes mellitus and [...] procedure. Sent Pool message to surgeon @ [facility] CPAP assessment complete [...] 325 mg tablet -- -- Historical Provider, tpzhwap-zxeoktdae-dlgk tablet -- -- Historical Provider, cetirizine (ZyrTEC) 10 mg tablet -- -- Historical Provider, cholecalciferol (VITAMIN D-3) 2,000 unit capsule -- -- Historical Provider, fluconazole (DIFLUCAN) 150 mg tablet 03/19/19 -- Historical Provider, ibuprofen (ADVIL,MOTRIN) 600 mg tablet -- -- Historical Provider, MD Hawkins gasseri/Alessandra bifidum/B longum ([facility]AL) -- -- Historical Provider, lutein [...] tablet ??? aspirin 325 mg tablet ??? vjtklfh-hwmnpsokd-qvth tablet ??? cetirizine (ZyrTEC) 10 mg tablet ??? cholecalciferol (VITAMIN D-3) 2,000 unit capsule ??? fluconazole (DIFLUCAN) 150 mg tablet ??? ibuprofen (ADVIL,MOTRIN) 600 mg tablet ??? L gasseri/B bifidum/B longum ([facility] ORAL) ??? lutein 20 mg tablet [...] Medication protocol when under care of a IT PROGRAMMER Planned anesthesia: General Informed Consent: Anesthesia plan and risks discussed with patient. Consent and Attending signature: I and/or my designee have discussed the anesthesia plan, benefits, possible alternatives, parental presence at time of induction (if indicated), and clinically relevant risks that may include dental injury, unintentional awareness, and/or other complications. The patient and/or parent/legal guardian understand, and agree to proceed. All questions answered. 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 Summary: E ANNEALING MACHINE SETTER * Perioperative Nursing Note - Eugenie Roman RN - 04/18/2019 12:14 PM FLAME ANNEALING MACHINE SETTER Time Out and Fire Safety Verification completed for Laparoscopic Sigmoid Resection with Dr Hodge at 1209. Surgeon used SPYPHI. ICG given IV. Reps present and operating device. E ANNEALING MACHINE SETTER * Op Note - Burton Cowan MD - 04/18/2019 11:31 AM CST OPERATIVE REPORT Patient Name: JA POOLE : 1960 Operative date: 04/18/19 Preoperative diagnosis: Diverticulitis Postoperative diagnosis: Diverticulitis Procedure: Cystoscopy with bilateral temporary ureteral stent placement Surgeon: Burton Cowan MD Managed Security Sales Consultant: Judd Johns MD Anesthesia: General anesthesia Indications: [...] cannulated the left ureteral orifice with 5 Citizen Of [place] whistle-tip ureteral catheters without any resistance, difficulty, or bleeding. The whistle tip catheter was then attempted to bepassed through the right ureteral orifice but slight resistance was met. At this point, a [place] wire was advanced through the ureter and [...] None Implant: None Drains: 1. Bilateral 5 Citizen Of [place] internal-external ureteral catheters 2. Evans catheter Disposition: Patient will be turned over to the care under the primary team. The ureteral catheters and Evans catheter may be removed per primary team. Cosigned by Benito Clifton MD at 04/22/2019 8:48 AM FLAME ANNEALING MACHINE SETTER E ANNEALING MACHINE SETTER E ANNEALING MACHINE SETTER * Op Note - Da Hodge MD [...] pelvis. The umbilical fascia was closed with wdfhlp-bo-gpbei 0 Vicryl suture. The muscles were reapproximated in the midline with iaovih-ui-uypkz 0 Vicryl. The transverse fascial incision was [...] during which time I was immediately available. E ANNEALING MACHINE SETTER documented in this encounter Plan of Treatment Not on file documented as of this encounter Procedures Procedure Name Priority Date/Time Associated Diagnosis Comments EGFR Routine 04/19/2019 3:35 AM FLAME ANNEALING MACHINE SETTER CBC WITHOUT DIFFERENTIAL Routine 04/19/2019 3:35 AM FLAME ANNEALING MACHINE SETTER MAGNESIUM Routine 04/19/2019 3:35 AM FLAME ANNEALING MACHINE SETTER BASIC METABOLIC PANEL Routine 04/19/2019 3:35 AM FLAME ANNEALING MACHINE SETTER SURGICAL PATHOLOGY Routine 04/18/2019 1: 46 PM FLAME ANNEALING MACHINE SETTER Diverticulitis PLACEMENT PREOPERATIVE STENT - URETERAL 04/18/2019 11:11 AM FLAME ANNEALING MACHINE SETTER Diverticulitis RESECTION SIGMOID COLON - LAPAROSCOPIC 04/18/2019 11:11 AM FLAME ANNEALING MACHINE SETTER Diverticulitis B ABO / RH CONFIRMATION TESTING STAT 04/18/2019 10:10 AM FLAME ANNEALING MACHINE SETTER ABO/RH STAT 04/18/2019 10:03 AM FLAME ANNEALING MACHINE SETTER ANTIBODY SCREEN STAT 04/18/2019 10:03 AM FLAME ANNEALING MACHINE SETTER TYPE AND SCREEN STAT 04/18/2019 10:03 AM FLAME ANNEALING MACHINE SETTER documented in this encounter Results * eGFR (04/19/2019 3:35 AM FLAME ANNEALING MACHINE SETTER) eGFR >60 mL/min/1.7 3 m2 BRITTANY FARRIS Comment: Interpretive Data Reference Interval Normal ?>/= 90 mL/min/1.73m2 Mildly decreased* ? 60 - 89 mL/min/1.73m2 Mildly to moderately decreased ?45 - 59 mL/min/1.73m2 Moderately to severely decreased ??30 - 44 mL/min/1.73m2 Severely decreased ?15 - 29 mL/min/1.73m2 Kidney Failure ?< 15 ??mL/min/1.73m2 *Relative to young adult level If -Tunisian multiply value by 1.16. Estimated glomerular filtration [...] 2015. Blood specimen (specimen) 04/19/2019 3:35 AM FLAME ANNEALING MACHINE SETTER 04/19/2019 3:36 AM FLAME ANNEALING MACHINE SETTER Da Hodge MD LAB BLOOD ORDERABLES Final Res ult Performing Organization Address [facility] de Phone Number [facility] [address] [address] [employer] [place], [place] [id number] * Magnesium (04/19/2019 3:35 AM FLAME ANNEALING MACHINE SETTER) Magnesium 1.9 1.4 - 2.5 mg/dL BRITTANY BOYLE Comment: Reference Data. Reference values for Labor and Delivery patients: < or = 0.7 mg/dL to > or = 7.3 mg/dL Current reference data last reviewd on 02/11/2015. Blood specimen (specimen) 04/19/2019 3:35 AM FLAME ANNEALING MACHINE SETTER 04/19/2019 3:36 AM FLAME ANNEALING MACHINE SETTER Da Hodge MD LAB BLOOD ORDERABLES Final Res ult Performing Organization Address [facility] Co de Phone Number [facility] [address] [place] [address] * (ABNORMAL) Basic metabolic panel (04/19/2019 3:35 AM FLAME ANNEALING MACHINE SETTER) Sodium 137 135 - 145 mmol/L [facility] Potassium, pl 4.8 3.3 - 4.9 mmol/L CERGARETH BJW Chloride 102 97 - 110 mmol/L [facility] CO2 26 22 - 32 mmol/L [facility] Anion gap 9 2 - 15 mmol/L [facility] BUN 14 8 - 25 mg/dL [facility] Creatinine 0.81 0.60 - 1.10 mg/dL [facility] Glucose 137 70 - 199 mg/dL [facility] Comment: Interpretive Data Fasting glucose >/= [...] 2017. Calcium 8.3(L) 8.5 - 10.3 mg/dL [facility] Blood specimen (specimen) 04/19/2019 3:35 AM FLAME ANNEALING MACHINE SETTER 04/19/2019 3:36 AM FLAME ANNEALING MACHINE SETTER us Da Hodge MD LAB BLOOD ORDERABLES Final Res ult [facility] [address] [facility]. Department [place] [address] * (ABNORMAL) CBC without differential (04/19/2019 3:35 AM FLAME ANNEALING MACHINE SETTER) WBC 10.5(H) 3.8 - 9.9 K/cumm [facility] Hgb 12.5 11.9 - 15.5 g/dL [facility] Hct 39.1 35.6 - 45.5 % [facility] Plt 224 150 - 400 K/cumm [facility] MPV 10.6 9.1 - 12.3 fL [facility] RBC 4.13 3.90 - 5.20 M/cumm [facility] MCV 94.7 81.3 - 96.4 fL [facility] MCH 30.3 27.1 - 33.3 pg [facility] MCHC 32.0(L) 32.3 - 35.7 g/dL [facility] RDW CV 13.4 11.1 - 14.9 % [facility] RDW SD 46.8 35.7 - 48.1 fL [facility] NRBC abs 0.00 0.00 - 0.01 K/cumm [facility] Blood specimen (specimen) 04/19/2019 3:35 AM FLAME ANNEALING MACHINE SETTER 04/19/2019 3:36 AM FLAME ANNEALING MACHINE SETTER us Da Hodge MD LAB BLOOD ORDERABLES Final Res ult BRITTANY BOYLE [address] [facility]. Department [place] [address] * Surgical pathology (04/18/2019 1:46 PM FLAME ANNEALING MACHINE SETTER) Tissue (Colon, Resection, Non-tumor) 04/18/2019 1:46 PM FLAME ANNEALING MACHINE SETTER Narrative PATHOLOGY [facility] - 04/23/2019 11:26 AM FLAME ANNEALING MACHINE SETTER EPIC results best viewed via link to PDF [facility] [place] [address] SURGICAL PATHOLOGY REPORT FINAL Patient Name: ?? JA POOLEBarbara Gender: ??F : ??1960 (Age: 59) Address: ??[address] [place] [address] Hospital #: ??[id number] Taken:04/18/2019 Received:04/18/2019 Reported: 04/23/2019 Patient Type: WC Inpatient Client ?[facility] Service: Surgery Location: [facility] ADMT Physician(s): ??Jonathan Palafox M.D. Diagnosis: [...] for this case was performed at the [facility], ??[address] [place] ??[address] ?? CLIA # [id number] History: The patient is a 59-year-old woman [...] A2 - mucosal margins; A3 to A6- paper sales representative diverticula; A7/A8 entire diverticulum containing mucinous material. ??Jar 4. mab/04/19/2019 09:18 PA(s): Julia Muñoz, MS, PA (ASCP) By this signature, I attest that the above diagnosis is based upon my personal examination of the slides(and/or other material). The performance characteristics of some immunohistochemical stains, fluorescence in-situ hybridization tests and immunophenotyping by flow cytometry cited in this report (if any) were determined by the Surgical Pathology Department at [facility] as part of an ongoing quality assurance tester program and in compliance with federally mandated [...] determined by the Surgical Pathology Department of [facility]. ??It has not been cleared or approved by the U. S. Food and Drug Administration. IMAGES AND SCANNED DOCUMENTS, IF INCLUDED, ONLY VIEWABLE IN PDF VERSION OF REPORT Da Hodge MD LAB PATHOLOGY ORDERABLES Final Result Performing Organization Address [facility]/ZIP Co de Phone Number PATHOLOGY [facility] [phone] * ABO / Rh Confirmation Testing (04/18/2019 10:10 AM FLAME ANNEALING MACHINE SETTER) ABO/Rh Confirmation A Positive BRITTANY FARRIS Blood specimen (specimen) 04/18/2019 10:10 AM FLAME ANNEALING MACHINE SETTER 04/18/2019 11:13 AM FLAME ANNEALING MACHINE SETTER Mima Jaime NP LAB BLOOD ORDERABLES Final Resu lt Performing Organization Address [facility]/ZIP Co de Phone Number [facility] [address] [facility] Department [place] [address] * Antibody screen (04/18/2019 10:03 AM FLAME ANNEALING MACHINE SETTER) Vicky, indirect, Gel Interpretation Negative ABSC BRITTANY FARRIS Blood specimen (specimen) 04/18/2019 10:03 AM FLAME ANNEALING MACHINE SETTER 04/18/2019 10:11 AM FLAME ANNEALING MACHINE SETTER Narrative BRITTANY FARRIS - 04/18/2019 11:00 AM FLAME ANNEALING MACHINE SETTER Has the patient had Daratumumab (Darzalex) in the past 6 months?->Unknown Mima Jaime MEAT DRESSER LAB BLOOD BANK TEST ORDERABLES Final Result Performing Organization Address [facility] de Phone Number BRITTANY BOYLECH [address] [facility] [place] [address] * ABO/Rh (04/18/2019 10:03 AM FLAME ANNEALING MACHINE SETTER) ABO/Rh A Positive BRITTANY FARRIS Blood specimen (specimen) 04/18/2019 10:03 AM FLAME ANNEALING MACHINE SETTER 04/18/2019 10:11 AM FLAME ANNEALING MACHINE SETTER Narrative BRITTANY FARRIS - 04/18/2019 11:13 AM FLAME ANNEALING MACHINE SETTER Has the patient had Daratumumab (Darzalex) in the past 6 months?->Unknown Mima Jaime NP LAB BLOOD BANK TEST ORDERABLES Final Result Performing Organization Address [facility] de Phone Number BRITTANY FARRIS [address] [facility] [place] [address] documented in this encounter Visit Diagnoses Diagnosis [...] 1200, Indications: PainIndications:Pain Given 04/20/2019 11:31 AM FLAME ANNEALING MACHINE SETTER 1,000 mg aspirin chewable tablet 81 mg 81 mg, oral, Nightly, First dose (after last modification) on 04/19/19 at 2100, Indications: prevention of thrombosisIndications:pre vention of thrombosis Given 04/19/2019 8:27 PM FLAME ANNEALING MACHINE SETTER 81 mg clindamycin (CLEOCIN) 600 mg, gentamicin (GARAMYCIN) 240 mg in sodium chloride 0.9 % 500 mL irrigation solution As needed, Starting on Valeria 04/18/19 at 1401, Intra-Op Given 04/18/2019 2:01 PM FLAME ANNEALING MACHINE SETTER 500 mL Surgical Site enoxaparin (LOVENOX) syringe 40 mg 40 mg, subcutaneous, Every 12 hours scheduled, First dose (after last modification) on Mon04/19/19 at 0200, RN to teach home administration with every injection., Indications: Deep Vein Thrombosis PreventionIndications:Loni p Vein Thrombosis Prevention Given 04/20/2019 9:49 AM FLAME ANNEALING MACHINE SETTER 40 mg Left Upper Abdomen Given 04/19/2019 8:27 PM FLAME ANNEALING MACHINE SETTER 40 mg Ri ght Lower Abdomen Given 04/19/2019 9:08 AM FLAME ANNEALING MACHINE SETTER 40 mg Le ft Lower Abdomen gabapentin (NEURONTIN) capsule 300 mg 300 mg, oral, 2 times daily, First dose on Valeria 04/18/19 at 2100 Given 04/20/2019 9:48 AM FLAME ANNEALING MACHINE SETTER 300 mg Given 04/19/2019 8:27 PM FLAME ANNEALING MACHINE SETTER 300 mg Given 04/19/2019 9:08 AM FLAME ANNEALING MACHINE SETTER 300 mg HYDROmorphone (DILAUDID) injection 0.2 mg 0.2 mg, intravenous, Administer over 2 Minutes, Every 4 hours PRN, 2nd line for pain, Starting on Mon04/19/19 at 1127, May administer 1 hour after second dose of 1st line analgesic agent for uncontrolled or increasing pain., Indications: PainIndications:Pain ibuprofen (ADVIL,MOTRIN) tablet/capsule 600 mg 600 mg, oral, 3 times daily PRN, 1st line for pain, alternate with APAP, Starting on 04/20/19 at 0746 ondansetron (ZOFRAN) injection 4 mg 4 mg, intravenous, Administer over 2 Minutes, Every 6 hours PRN, nausea, vomiting, Starting on Valeria 04/18/19 at 1612, Proceed to prochlorperazine if no relief within 30 minutes. Given 04/20/2019 4:25 AM FLAME ANNEALING MACHINE SETTER 4 mg oxyCODONE (ROXICODONE) tablet 5 mg 5 mg, oral, Every 4 hours PRN, 1st line for pain, Starting on Mon04/19/19 at 1127, May repeat in 1 hour if pain is uncontrolled or increasing. Max 2 doses within 1 dosing interval., Indications: PainIndications:Pain Given 04/19/2019 7:52 PM FLAME ANNEALING MACHINE SETTER 5 mg Given 04/19/2019 1:04 PM FLAME ANNEALING MACHINE SETTER 5 mg sodium chloride 0.9 % irrigation As needed, Starting on Valeria 04/18/19 at 1400, Intra-Op Given 04/18/2019 2:00 PM FLAME ANNEALING MACHINE SETTER 500 mL Surgical Site sodium chloride 0.9 % irrigation As needed, Starting on Valeria 04/18/19 at 1131, Intra-Op Given 04/18/2019 11:31 AM FLAME ANNEALING MACHINE SETTER 500 mL Surgical Site sodium chloride 0.9% flush 0.5-20 mL 0.5-20 mL, intra-catheter, Every 8 hours scheduled, First dose on Valeria 04/18/19 at 1645, Flush volume based on line type and size. Given 04/19/2019 8:28 PM FLAME ANNEALING MACHINE SETTER 10 mL venlafaxine XR (EFFEXOR-XR) extended release capsule 150 mg 150 mg, oral, Nightly, First dose on Valeria 04/18/19 at 2100, Do not crush, chew, cut, dissolve, open or otherwise manipulate tablet/capsule., Indications: Anxiety with DepressionIndications:Anxiety with Depression Given 04/19/2019 8:26 PM FLAME ANNEALING MACHINE SETTER 150 mg Given 04/18/2019 8:17 PM FLAME ANNEALING MACHINE SETTER 150 mg documented in this encounter Discontinued [...] Recently Administered Medications Times are shown in FLAME ANNEALING MACHINE SETTER. Scheduled Medication Order 04/18/2019 04/19/2019 04/20/2019 acetaminophen (TYLENOL) tablet 1,000 mg (COMPLETED) 1,000 mg, oral, Once, On Valeria 04/18/19 at 1000, For 1 dose, Pre-Op, Give upon arrival to holding area. , Indications: Pre-Emptive Analgesia 0945 (Given - Provider: Gosia Whaley, RN) acetaminophen (TYLENOL) tablet 1,000 mg (CANCELED) 1,000 mg, oral, Every 8 hours scheduled, First dose on Valeria 04/18/19 at 2000, Indications: Pain 2017 (Given - Provider: Sue Hoffman, RN) 0256 (Given - Provider: Sue Hoffman, RN)1251 (Given - Provider: Cheryl Gutierres, RN)2026 (Given - Provider: Rose Milian, ERASTO) [...] thrombosis 2026 (Given - Provider: Rose Milian, ERASTO) aspirin tablet 325 mg (CANCELED) 325 mg, oral, Nightly, First dose on Valeria 04/18/19 at 2100, Indications: prevention of thrombosis 2017 (Given - Provider: Sue Hoffman, RN) celecoxib (CeleBREX) capsule 400 mg (COMPLETED) 400 mg, oral, Once, On Valeria 04/18/19 at 1000, For 1 dose, Pre-Op, Give upon arrival to holding area., Indications: Pre-Emptive Analgesia 0946 (Given - Provider: Gosia Whaley, RN) enoxaparin (LOVENOX) syringe 40 mg 40 mg, subcutaneous, Every 12 hours scheduled, First dose (after last modification) on Mon04/19/19 at 0200, RN to teach home administration with every injection., Indications: Deep Vein Thrombosis Prevention 256 (Given - Provider: Sue Hoffman, RN)09 (Given - Provider: Cheryl Gutierres, RN)2026 (Given - Provider: Rose Milian, RN) 0949 (Given - Provider: Birdie Lui, RN) ertapenem (INVanz) 1,000 mg in sodium chloride [...] 0946 (Given - Provider: Gosia Whaley, ERASTO) gabapentin (NEURONTIN) capsule 300 mg 300 mg, oral, 2 times daily, First dose on Valeria 04/18/19 at 2100 2016 (Given - Provider: Sue Hoffman, ERASTO) 09 (Given - Provider: Cheryl Gutierres, ERASTO)2026 (Given - Provider: Rose Milian, ERASTO) 0948 (Given - Provider: Birdie Lui, RN) heparin 5,000 unit/mL injection 5,000 Units (COMPLETED) [...] seconds 1251 (Given - Provider: Cheryl Gutierres RN)202 (Given - Provider: Rose Milian RN) 0306 (Given - Provider: Rose Milian, ERASTO) scopolamine patch 72 hour 1 patch (CANCELED) 1 patch, transdermal, Administer over 72 Hours, Once, On Mon04/18/19 at 1000, For 1 dose, Pre-Op, Apply [...] Every 8 hours scheduled, First dose on Mon04/18/19 at 1645, Flush volume based on line type and size. 1613 (Not Given - Provider: Jyaa Petty RN - Reason: IV Infusing) 0148 (Not Given - Provider: Sue Hoffman RN - Reason: IV Infusing)0417 (Not Given - Provider: Sue Hoffman RN - Reason: IV Infusing)1635 (Not Given - Provider: Cheryl Gutierres RN - Reason: IV Infusing)2028 (Given - Provider: Rose Milian, ERASTO) 0523 (Not Given - Provider: Rose Milian, ERASTO - Reason: Other)1400 (Due) venlafaxine XR (EFFEXOR-XR) extended release capsule 150 mg 150 mg, oral, Nightly, First dose on Valeria 04/18/19 at 2100, Do not crush, chew, cut, dissolve, open or otherwise manipulate tablet/capsule., Indications: Anxiety with Depression 2016 (Given - Provider: Sue Hoffman, ERASTO) 2025 (Given - Provider: Rose Milian RN) Continuous Medication Order 04/18/2019 04/19/2019 04/20/2019 dextrose 5% and sodium chloride 0.45% with potassium chloride 20 mEq/L infusion (premix) ()(Linked Group 1) 125 mL/hr, intravenous, Continuous, Starting on Valreia 04/18/19 at 1645, For 8 hours 1634 [...] mg/mL) infusion (premix) (CANCELED) Continuous dose: None, WATER AEROBICS INSTRUCTOR dose: Other / 0.1mg, WATER AEROBICS INSTRUCTOR lockout: 10 Minutes, 1 hour limit: Other / 0.6 mg, intravenous, Continuous, Starting on Valeria 04/18/19 at 1500, Until Mon04/19/19 at 1127, 50 mL, Indications: Pain, Routine 1506 (New Bag - Provider: Hue Hernández, ERASTO)1627 (Handoff - Provider: Jaya Petty, ERASTO)1911 (Handoff - Provider: Jaya Petty, ERASTO)2319 (Stopped (Dual Sign) - Provider: Sue Hoffman RN - Comment: WATER AEROBICS INSTRUCTOR malfunction, changed to new machine and cartridge)2323 (New Bag - Provider: Sue Hoffman RN) 0743 (Handoff - Provider: Sue Hoffman, ERASTO)1256 (Stopped (Dual Sign) - Provider: Cheryl Bhavik, RN) Lactated Ringer's (LR) infusion (CANCELED) 30 [...] PRN, 2nd line for pain, Starting on 04/19/19 at 1127, May administer 1 hour after [...] Indications: Pain 1304 (Given - Provider: Cheryl Gutierres, RN)1952 (Given - Provider: Cheryl Gutierres, RN) prochlorperazine (COMPAZINE) injection 10 mg 10 [...] Count Last Ordered Date First Ordered Date acetaminophen (TYLENOL) tablet 1,000 mg 3 1 06/21/2018 04/18/2019 ibuprofen (ADVIL,MOTRIN) tab let/capsule 600 mg 1 04/20/2019 aspirin chewable tablet 81 mg 1 04/19/2019 enoxaparin (LOVENOX) syringe 40 mg 2 201804/18/2019 HYDROmorphone (DILAUDID) injection 0.2 mg 2 04/19/2019 04/18/2019 ketorolac (TORADOL) injection 30 mg 1 04/19 oxyCODONE (ROXICODONE) tablet 5 mg 1 2018 acetaminophen (TYLENOL) tablet 500 mg 1 09/2018 ALPRAZolam (XANAX) tablet 0.25 mg 1 019 alvimopan (ENTEREG) capsule 12 mg 2 019 aspirin tablet 325 mg 1 04/18/2019 celecoxib (CeleBREX) capsule 400 mg 1 04/18 dextrose 5% and sodium chlor deshawn 0.45% with potassium chloride 20 mEq/L infusion (premix) 2 04/18/2019 diphenhydrAMINE (BENADRYL) i njection 12.5 mg 1 04/18/2019 ertapenem (INVanz) 1,000 mg in sodium chloride 0.9% 100 mL IVPB 1 04/18/2019 fentaNYL (SUBLIMAZE) preserv ative free injection 25 mcg 1 04/18/2019 gabapentin (NEURONTIN) capsule 300 mg 2 09/2018 heparin 5,000 unit/mL inject ion 5,000 Units 1 04/18/2019 hydrALAZINE (APRESOLINE) injection 5 mg 1 1 06/19/2018 HYDROcodone-acetaminophen (N ORCO) 5-325 mg per tablet 1 tablet 1 04/18/2019 HYDROmorphone in 0.9% sodium chloride (DILAUDID) 10 mg/50 mL (0.2 mg/mL) infusion (premix) 1 04/18/2019 labetalol (NORMODYNE,TRANDAT E) injection 5 mg 1 04/18/2019 Lactated Ringer's (LR) infusion 2 9 meperidine (DEMEROL) preserv ative free injection 12.5 mg 1 04/18/2019 ondansetron (ZOFRAN) injection 4 mg 2 04/18 prochlorperazine (COMPAZINE) injection 10 mg 1 04/18/2019 prochlorperazine (COMPAZINE) injection 5 mg 1 04/18/2019 scopolamine patch 72 hour 1 patch 1 019 sodium chloride 0.9% flush 0.5-20 mL 3 09/2018 venlafaxine XR (EFFEXOR-XR) extended release capsule 150 mg 1 04/18/2019 Diet Count Last Ordered Date First Orde red Date ADULT DISCHARGE DIET 1 04/20/2019 Nursing Count Last Ordered Date First Orde red Date DISCHARGE ACTIVITY 3 04/20/2019 DISCHARGE CALL PROVIDER 4 04/20/2019 DISCHARGE DRESSING 3 04/20/2019 EVANS CATHETER - DISCONTINUE 1 04/19/2019 Transfer Count Last Ordered Date First Orde red Date TRANSFER PATIENT 1 04/18/2019 documented in this encounter Care Teams Caption Writer Relationship Specialty Start Date End Date Janine Terry MD [address] [place] [address] PCP - General Family Medicine 03/06/19 01/19/22 Adam English DO [address] [place] [address] Marketing Planner Gastroenterology 03/26/19 06/05/23 documented as of this encounter
--- OUTSIDE RECORDS SUMMARY | 2024-05-20 13:10 | XMS_ITS | Encounter Summary ---
Author Organization [facility] Address [address] [place] [address] Phone Care Team Providers Care Casino Gaming Inspector Name Role Phone Janine Terry MD Primary Care Provider [phone] Adam English DO Unavailable [phone] Reason for Visit * Reason Onset Date Comments surgery confirmation 04/17/2019 Encounter Details Date Type Department Care Team (Late st Contact Info) Description 04/17/2019 Telephone [facility] [address] [facility] 8[address] [place] [address] [place] [address] Angela Crain, [facility] surgery confirmation Social History Tobacco Use Types Packs/Day Years Used Date Smoking Tobacco: Never Smokeless Tobacco: Never Alcohol Use Standard Drinks/Week Comments Not Currently 0 (1 standard drink = 0.6 oz pur e alcohol) Comments Unknown Sex and Gender Information Value Date Recorded Sex Assigned at Not on file Legal Sex Female 2:22 AM ENERGY CONSULTANT Gender Identity Female 05/18/2019 7:17 PM ENERGY CONSULTANT Sexual Orientation Straight 05/18/2019 7: 17 PM ENERGY CONSULTANT documented as of this encounter Miscellaneous Notes * Telephone Encounter - Angela Crain, [facility] - 04/17/2019 2:52 PM ENERGY CONSULTANT Spoke with patient confirming surgery on 04/18/2019. Reviewed surgery bowel prep and confirmed arrival time, start time, and location with patient. Patient verbalized understanding and agreement withplan. GY CONSULTANT documented in this encounter Plan of Treatment Not on file documented as of this encounter Visit Diagnoses Not on filedocumented in this encounter Care Teams Casino Gaming Inspector Relationship Specialty Start Date End Date Janine Terry MD [address] [place] [address] PCP - General Family Medicine 03/06/19 01/19/22 Adam English DO [address] [place] [address] Patient Information Coordinator Gastroenterology 03/26/19 06/05/23 documented as of this encounter
--- OUTSIDE RECORDS SUMMARY | 2024-05-20 13:10 | XMS_ITS | Encounter Summary ---
Author Organization [facility] Address [address] [place] [address] Care Team Providers Care Bill Of Materials Clerk Name Role Phone Janine Terry MD Primary Care Provider [phone] Adam English DO Unavailable [phone] Reason for Referral * Diagnostic Imaging (Routine) - Closed Specialty Diagnoses / Procedures Referred By Sisi de león Referred To Contact Diagnoses Encounter for screening mammogram for malignant neoplasm of breast Procedures Screening Mammogram Bilateral [place] Screening Mammogram, Self [address] [address] Referral ID Status Reason Start Date Expiration Date Visits Re quested Visits Authorized [id number] Closed 12/20/2019 01/18/2021 1 1 Reason for Visit * Diagnostic Imaging (Routine) - Closed Specialty Diagnoses / Procedures Referred By Sisi de león Referred To Contact Diagnoses Encounter for screening mammogram for malignant neoplasm of breast Procedures Screening Mammogram Bilateral [place] Screening Mammogram, Self [address] [address] Referral ID Status Reason Start Date Expiration Date Visits Re quested Visits Authorized [id number] Closed 12/20/2019 01/18/2021 1 1 Encounter Details Date Type Department Care Team (Latest Contact Info) Description 02/18/2020 9:00 AM CDT - 02/18/2020 9:12 AM CDT Hospital Encounter [facility] [address] [place] [id number] Screening Mammogram, Self Encounter for screening mammogram [...] on file Legal Sex Female 2:22 AM BALLISTICS LABORATORY GUNSMITH Gender Identity Female 05/18/2019 7:17 PM [employer]ALLIST[employer]ORAT[employer] GUNSMITH Sexual Orientation Straight 05/18/2019 7: 17 PM BALLISTICS LABORATORY GUNSMITH documented as of this encounter Medications at Time of Discharge ALPRAZolam (XANAX) 0.25 mg tablet Take 1 tablet (0.25 mg total) by mouth 3 (three) times a day as needed for anxiety acetaminophen (TYLENOL) 500 mg tablet Take 1,000 mg by mouth every 6 (six) hours as needed for pain 2 [id number]-abnnofikm-va nc tablet Take 1 tablet by mouth [...] a day 2 L gasseri/B bifidum/B longum ([facility]) Take 1 tablet [...] LALO Schedule Routine, Read Routine (OP Routine) 02/18/2020 9:24 AM CDT Encounter for screening mammogram for malignant neoplasm of breast documented in this encounter Results * Screening Mammogram Bilateral W Lalo (02/18/2020 9:24 AM CDT) Anatomical Region Laterality Modality Breast Bilateral Mammography Narrative 02/20/2020 3:46 PM CDT Mammogram Technique: Bilateral Digital Breast Tomosynthesis, Bilateral C-view 2D Screening mammogram. ??Views obtained: ??bilateral craniocaudal and bilateral mediolateral oblique. ??Computer Aided Detection was performed. Mammogram Findings: The present examination has been compared to prior imaging studies performed at [facility]. [facility] on 06/30/2011, 11/02/2015 and 01/27/2017. There are scattered areas of fibroglandular density. There is no suspicious abnormality in either breast. There are no significant changes from the prior study. Impression: Finding is benign. Annual screening mammography is recommended. OVERALL FINAL ASSESSMENT: BI-RADS CATEGORY 2: ??Benign. Procedure Note Meaghan Mullins MD - 02/20/2020 Mammogram Technique: Bilateral Digital Breast Tomosynthesis, Bilateral C-view 2D Screening mammogram. Views obtained: bilateral craniocaudal and bilateral mediolateral oblique. Computer Aided Detection was performed. Mammogram Findings: The present examination has been compared to prior imaging studies performed at [facility]. [facility] on 06/30/2011, 11/02/2015 and 01/27/2017. There are scattered areas of fibroglandular density. There is no suspicious abnormality in either breast. There are no significant changes from the prior study. Impression: Finding is benign. Annual screening mammography is recommended. OVERALL FINAL ASSESSMENT: BI-RADS CATEGORY 2: Benign. us Self Screening Mammogram IMG MAMMO PROCEDURES Fi nal Result documented in this encounter Visit Diagnoses Diagnosis Encounter for screening mammogram for malignant neoplasm of breast documented in this encounter Care Teams Bill Of Materials Clerk Relationship Specialty Start Date End Date Janine Terry MD [address] [place] [address] PCP - General Family Medicine 03/06/19 01/19/22 Adam English DO [address] [place] [address] Collar Runner Gastroenterology 03/26/19 06/05/23 documented as of this encounter
--- OUTSIDE RECORDS SUMMARY | 2024-05-20 13:10 | XMS_ITS | Encounter Summary ---
Author Organization [facility] Address [address] [place] [address] Phone Care Team Providers Care American Sign Language Interpreter Name Role Phone Janine Terry MD Primary Care Provider [phone] Adam English DO Unavailable [phone] Reason for Referral * Diagnostic Imaging (Routine) - Closed Specialty Diagnoses / Procedures Referred By Sisi de león Referred To Contact Diagnoses Right elbow pain Procedures XR Elbow Right 3 or More Views Jordon Gallo MD [address] [facility] [address] [facility] [address] [place] [address] Phone: tel: fax: [facility] Referral ID Status Reason Start Date Expiration Date Visits Re quested Visits Authorized [id number] Closed 12/17/2020 01/16/2022 1 1 Reason for Visit * Reason Comments Pain Pain Encounter Details Date Type Department Care Team (Late st Contact Info) Description 12/17/2020 12:30 PM CDT Office Visit [facility] Orthopedic [facility]) - [facility] [id number] [place] [id number] Jordon Gallo MD [address] [place] [address] Right elbow pain (Primary Dx); Neuritis of right ulnar nerve Social History Tobacco Use Types Packs/Day Years Used Date Smoking Tobacco: Never Smokeless Tobacco: Never Alcohol Use Standard Drinks/Week Comments Not Currently 0 (1 standard drink = 0.6 oz pur e alcohol) Comments No Sex and Gender Information Value Date Recorded Sex Assigned at Not on file Legal Sex Female 2:22 AM QUALITY FACILITATOR Gender Identity Female 05/18/2019 7:17 PM QUALITY FACILITATOR Sexual Orientation Straight 05/18/2019 7: 17 PM QUALITY FACILITATOR documented as of this encounter Last Filed Vital Signs Vital Sign Reading Time Taken Comments Blood Pressure - - Pulse - - Temperature - - Respiratory Rate - - Oxygen Saturation - - Inhaled Oxygen Concentration - - Weight 132.5 kg (292 lb) 12/17/2020 12:41 PM CDT Height 180.3 cm (5' 11 ) 12/17/2020 12:41 PM CDT Body Mass Index 40.73 12/17/2020 12:41 PM CDT documented in this encounter Patient Instructions * Patient Instructions* Jordon Gallo MD - 12/17/2020 12:30 PM CDT I would like for her to utilize Aleve 2 tabs twice a day for the next 10 days. I would like for herto trial gabapentin 300 mg at night. I would like for her to utilize a heel bow elbow sleeve to help with her elbow pain. I would also like for her to start physical therapy to work on neuro mobilization. Pending her response to the above interventions we could consider moving forward with an electrodiagnostic study. Call [phone] or send a [employer] message if your pain worsens or if you have questions. documented in this encounter Progress Notes * Jordon Gallo MD - 12/17/2020 12:30 PM CDT NEW PATIENT VISIT Subjective CHIEF COMPLAINT Right elbow pain HISTORY OF PRESENT ILLNESS This is a 60-year-old wkgjt-voja-vayiptuw woman who presents today with right elbow pain as well asright hand pain and paresthesias. She states that she has had elbow pain for quite some time but has noted elbow pain with numbness in the 4th and 5th digits over the course of last 4 days. She states that has been worse over the last 24 hours. She states that she awoke with this pain 4 days ago. She denies any injury. She denies any significant neck pain. She denies any persistent weakness. She states that her numbness is intermittent. She states that her symptoms are worse when she is bendingher arm and with trying to flex her elbow and certain positions and her pain is better with stretching and extending her elbow. She states that she has tried ice long possible patch as well as ibuprofen is found this to be helpful. She presents today for further evaluation of her right elbow pain and right hand numbness and weakness. PAST MEDICAL HISTORY She has a past medical history of Anxiety, Arthritis, Cholecystitis, Colorectal polyps, Depression,Diverticulitis, NAFLD (nonalcoholic fatty liver disease), Ovarian cyst, and Rosacea. She also has no past medical history of Acute respiratory failure requiring reintubation ([facility]/HCC) ([facility]), Awareness under anesthesia, Delayed emergence from general anesthesia, Hard to intubate, Malignant hyperthermia, PONV (postoperative nausea and vomiting), Postoperative delirium, or Pseudocholinesterase deficiency. PAST SURGICAL HISTORY She has a past surgical history that includes Gallbladder surgery (2012); Colonoscopy (10/03/2018);Tonsillectomy and adenoidectomy (1962); Laparoscopic ovarian cystectomy; Tonsillectomy and adenoidectomy (1961); Sinus surgery (1984); Teratoma excision (Left, 1995); Skin cancer excision (Right, 1994); Hysterectomy (1999); Lesionectomy (Right, 2009); and Colectomy (04/18/2019). INITIAL REVIEW OF MEDICATIONS She has a current medication list which includes the following prescription(s): acetaminophen, alprazolam, ubqgnlg-wpvhwldhp-oppc, cetirizine, cholecalciferol, l gasseri/b bifidum/b longum, losartan-hydrochlorothiazide, psyllium husk, soy isofla/blk cohosh/mag bark, venlafaxine xr, gabapentin, gabapentin, lutein, and ondansetron odt. DRUG ALLERGIES She is allergic to penicillins and inapsine [droperidol]. SOCIAL HISTORY She reports that she has never smoked. She has never used smokeless tobacco. She reports previous alcohol use. FAMILY HISTORY Her family history includes Colon cancer in her mother; Diabetes in her maternal grandmother; Diverticulosis in her brother and father; Gallbladder disease in her father and mother; Heart attack (ageof onset: 71) in her father; Hypertension in her mother. REVIEW OF SYSTEMS A complete review of systems was performed and is negative except as documented in the history of present illness, past medical history, and past surgical history. Objective PHYSICAL EXAMINATION GENERAL: In no acute distress. Well-developed and well nourished. PSYCHOLOGICAL: Alert and oriented. Cooperative, normal stated mood, congruent affect. HENT: Normocephalic, atraumatic. Hearing adequate for conversation. EYES: Non-icteric sclera. RESPIRATORY: Non-labored breathing. No audible cough or wheeze. CARDIOVASCULAR: No edema. Bilateral upper extremities were warm well perfused. SKIN: No rashes or open wounds involving bilateral upper extremities.. NEUROLOGIC: Strength: 5/5 bilaterally with shoulder abduction, external rotation, internal rotation, elbow flexion, elbow extension, wrist flexion, wrist extension, forearm pronation, forearm supination, FDI, ADM, EIP and APB. Sensation: intact light touch sensation throughout bilateral upper extremities. MUSCULOSKELETAL: Inspection: normal elbow carrying angle. No effusion. Palpation: tenderness was present over the radial head as well as the retro condylar groove on the right. ROM: Elbow: full in all planes without pain Special Tests: Spurling's: Negative Tinel's: Positive at the elbow. Varus / valgus stress: no pain or laxity Mill???s: Negative Cozen???s: Negative Hawkin's, Neer's: negative REVIEW OF X-RAYS/STUDIES Three views of the right elbow were obtained reviewed by myself. There is no evidence of fracture. The alignment appears normal. There is no evidence of a large effusion. Assessment/Plan IMPRESSION/DIAGNOSIS 1. Acute right elbow pain with right ulnar neuritis as well as right radial head pain TREATMENT PLAN I reviewed the patient's imaging studies and discussed her diagnosis, treatment, plan with the patient the room. I would like for her to utilize Aleve 2 tabs twice a day for the next 10 days. I would like for herto trial gabapentin 300 mg at night. I would like for her to utilize a heel bow elbow sleeve to help with her elbow pain. I would also like for her to start physical therapy to work on neuro mobilization. Pending her response to the above interventions we could consider moving forward with an electrodiagnostic study. Jordon Gallo MD Food Service Coordinator Division of Physical Medicine and Rehabilitation Department of Orthopaedic Surgery [facility] ?? Jordon Gallo M.D. dictating using M*Modal Fluency Direct. Nuclear Powerplant Supervisor variances may occur. Jordon Gallo MD documented in this encounter Plan of [...] it. Electronically signed by: Glenroy Aguillon M.D. us Jordon Gallo MD IMG XR PROCEDURES Final Res ult documented in this encounter Visit Diagnoses Diagnosis Right elbow pain- Primary Pain in joint, upper arm Neuritis of right ulnar nerve documented in this encounter Historical Medications * This list may reflect changes made after this encounter. losartan-hydroCHLO ROthiazide (HYZAAR) 50-12.5 mg per tablet 1/2 tab am 10/14/2020 added in this encounter Care Teams American Sign Language Interpreter Relationship Specialty Start Date End Date Janine Terry MD [address] [place] [address] PCP - General Family Medicine 03/06/19 01/19/22 Adam English DO [address] [place] [address] Mechanical Manufacturing Technician Gastroenterology 03/26/19 06/05/23 documented as of this encounter
--- OUTSIDE RECORDS SUMMARY | 2024-05-20 13:10 | XMS_ITS | Encounter Summary ---
Author Organization [facility] Healthcare Address [address] [place] [address] Care Team Providers Care Soap Chipper Name Role Phone Janine Terry MD Primary Care Provider [phone] Adam English DO Unavailable [phone] Encounter Details Date Type Department Care Team (Latest Contact Info) Description 02/18/2020 9:18 AM CDT - 02/18/2020 11:59 PM CDT Hospital Encounter [facility] [address] [place] [id number] Discharge Disposition: Discharge to home or self care Social History Tobacco Use Types Packs/Day Years Used Date Smoking Tobacco: Never Smokeless Tobacco: Never Alcohol Use Standard Drinks/Week Comments Not Currently 0 (1 standard drink = 0.6 oz pur e alcohol) Comments No Sex and Gender Information Value Date Recorded Sex Assigned at Not on file Legal Sex Female 2:22 AM CIRCUITS ENGINEER Gender Identity Female 05/18/2019 7:17 PM CIRCUITS ENGINEER Sexual Orientation Straight 05/18/2019 7: 17 PM CIRCUITS ENGINEER documented as of this encounter Medications at Time of Discharge ALPRAZolam (XANAX) 0.25 mg tablet Take 1 tablet (0.25 mg total) by mouth 3 (three) times a day as needed for anxiety acetaminophen (TYLENOL) 500 mg tablet Take 1,000 mg by mouth every 6 (six) hours as needed for pain 2 woiylsi-qennehknr-ov nc tablet Take 1 tablet by mouth [...] a day 2 L gasseri/B bifidum/B longum ([facility] ORAL) Take 1 tablet [...] only and have not been reviewed by [facility]. ??There will be no report generated by a [facility]iologist. Narrative [facility] - 02/18/2020 9:18 AM CDT EXAMINATION: ??Images For Reference Purposes Only us Physician No IMG MAMMO PROCEDURES Final Resul t [facility] documented in this encounter Visit Diagnoses Not on filedocumented in this encounter Care Teams Soap Chipper Relationship Specialty Start Date End Date Janine Terry MD [address] [place] [address] PCP - General Family Medicine 03/06/19 01/19/22 Adam English DO [address] [place] [address] Match Up Person Gastroenterology 03/26/19 06/05/23 documented as of this encounter
--- OUTSIDE RECORDS SUMMARY | 2024-05-20 13:10 | XMS_ITS | Encounter Summary ---
Author Organization [facility] Healthcare Address [address] [place] [address] Care Team Providers Care Fishing Guide Name Role Phone Janine Terry MD Primary Care Provider [phone] Adam English DO Unavailable [phone] Encounter Details Date Type Department Care Team (Latest Contact Info) Description 03/27/2019 6:46 PM THREAD INSPECTOR Hospital Encounter [facility] [address] [place] [id number] Discharge Disposition: Discharge to home or self care Social History Tobacco Use Types Packs/Day Years Used Date Smoking Tobacco: Never Comments Unknown Sex and Gender Information Value Date Recorded Sex Assigned at Not on file Legal Sex Female 2:22 AM THREAD INSPECTOR Gender Identity Female 05/18/2019 7:17 PM THREAD INSPECTOR Sexual Orientation Straight 05/18/2019 7: 17 PM THREAD INSPECTOR documented as of this encounter Medications at Time of Discharge ALPRAZolam (XANAX) 0.25 mg tablet Take 1 tablet (0.25 mg total) by mouth 3 (three) times a day as needed for anxiety aspirin 325 mg tabletIndications:pr evention of thrombosis Take 325 mg by mouth nightly 0 monramu-sidswsvju-su nc tablet Take 1 tablet by mouth [...] 0 03/19/2019 0 L gasseri/B bifidum/B longum ([facility] ORAL) Take 1 tablet [...] Comments CT BODY OUTSIDE REFERENCE Routine 03/27/2019 6:46 PM THREAD INSPECTOR Diagnosis unknown documented in this encounter Results * CT Body Outside Reference (03/27/2019 6:46 PM THREAD INSPECTOR) Impressions [facility] - 03/27/2019 6:46 PM THREAD INSPECTOR These images are for Reference purposes only and have not been reviewed by [facility]. ??There will be no report generated by a [facility] Radiologist. Narrative [facility] - 03/27/2019 6:46 PM THREAD INSPECTOR EXAMINATION: ??Images For Reference Purposes Only us Da Hodge MD IMG CT PROCEDURES Final Result [facility] documented in this encounter Visit Diagnoses Not on filedocumented in this encounter Care Teams Fishing Guide Relationship Specialty Start Date End Date Janine Terry MD [address] [place] [address] PCP - General Family Medicine 03/06/19 01/19/22 Adam English DO [address] [place] [address] Desktop Support Manager Gastroenterology 03/26/19 06/05/23 documented as of this encounter
--- OUTSIDE RECORDS SUMMARY | 2024-05-20 13:10 | XMS_ITS | Encounter Summary ---
Author Organization [facility] Healthcare Address [address] [place] [address] Care Team Providers Care Transit Mixer Operator Name Role Phone Janine Terry MD Primary Care Provider [phone] Adam English DO Unavailable [phone] Reason for Referral * Diagnostic Imaging (Routine) - Closed Specialty Diagnoses / Procedures Referred By Contac t Referred To Contact Diagnoses Encounter for screening for osteoporosis Procedures Dexa Axial Skeleton Bone Density 1 or 2 Site Janine Terry MD [address] [place] [address] Phone: tel: fax: [address] [phone] Referral ID Status Reason Start Date Expiration Date Visits Re quested Visits Authorized [id number] Closed 12/30/2019 01/28/2021 1 1 Reason for Visit * Diagnostic Imaging (Routine) - Closed Specialty Diagnoses / Procedures Referred By Contac t Referred To Contact Diagnoses Encounter for screening for osteoporosis Procedures Dexa Axial Skeleton Bone Density 1 or 2 Site Janine Terry MD [address] [place] [address] Phone: tel: fax: [address] [phone] Referral ID Status Reason Start Date Expiration Date Visits Re quested Visits Authorized [id number] Closed 12/30/2019 01/28/2021 1 1 Encounter Details Date Type Department Care Team (Latest Contact Info) Description 01/28/2020 7:00 AM CDT - 01/28/2020 11:59 PM CDT Hospital Encounter [facility] [address] [place] [address] Janine Terry MD [address] [place] [address] Encounter for screening for osteoporosis Discharge Disposition: Discharge to home or self care Social History Tobacco Use Types Packs/Day Years Used Date Smoking Tobacco: Never Smokeless Tobacco: Never Alcohol Use Standard Drinks/Week Comments Not Currently 0 (1 standard drink = 0.6 oz pur e alcohol) Comments No Sex and Gender Information Value Date Recorded Sex Assigned at Not on file Legal Sex Female 2:22 AM HOME TEACHING GRADES 7 AND 8 TEACHER Gender Identity Female 05/18/2019 7:17 PM HOME TEACHING GRADES 7 AND 8 TEACHER Sexual Orientation Straight 05/18/2019 7: 17 PM HOME TEACHING GRADES 7 AND 8 TEACHER documented as of this encounter Medications at Time of Discharge ALPRAZolam (XANAX) 0.25 mg tablet Take 1 tablet (0.25 mg total) by mouth 3 (three) times a day as needed for anxiety acetaminophen (TYLENOL) 500 mg tablet Take 1,000 mg by mouth every 6 (six) hours as needed for pain 2 ttfjrjs-gymoxyqap-gb nc tablet Take 1 tablet by mouth [...] a day 2 L gasseri/B bifidum/B longum ([facility] [...] Procedure Name Priority Date/Time Associated Diagnosis Comments DEXA AXIAL SKELETON BONE DENSITY 1 OR MORE SITES Schedule Routine, Read Routine (OP Routine) 01/28/2020 8:48 AM CDT Encounter for screening for osteoporosis DIFFERENTIAL AUTO Routine 01/28/2020 7:2 5 AM CDT CBC WITH AUTO DIFFERENTIAL Routine 01/28/2020 7:25 AM CDT TSH Routine 01/28/2020 7:25 AM CDT T4, FREE Routine 01/28/2020 7:25 AM CDT LIPID PANEL Routine 01/28/2020 7:25 AM CDT COMPREHENSIVE METABOLIC PANEL Routine 01/28/2020 7:25 AM CDT URINALYSIS AND REFLEX TO MICROSCOPIC AND CULTURE Routine 01/28/2020 7:17 AM CDT documented in this encounter Results * Dexa Axial Skeleton Bone Density 1 [...] it. Electronically signed by: Heri Harmon M.D. [facility] Geoffrey Terry MD [facility] DXA PROCEDURES Final Result * Differential, auto (01/28/2020 7:25 AM CDT) Pathologist [facility] [place] [facility] Neutrophil abs 3.2 1.7 - 6.5 K/cumm [facility] Imm gran abs 0.0 0.0 - 0.1 K/cumm [facility] Lymphocyte abs 2.5 0.8 - 3.3 K/cumm [facility] Monocyte abs 0.5 0.2 - 0.8 K/cumm [facility] Eosinophil abs 0.2 0.0 - 0.5 K/cumm [facility] Basophil abs 0.1 0.0 - 0.1 K/cumm [facility] Neutrophil pct 50.5 % [facility] Comment: Interpretive Data Percent cell count reference ranges are not reported, since discordance with absolute values may lead to misinterpretation of CBC data. Current Interpretive Data was last revised on 2017. Imm gran pct 0.3 % [facility] Comment: Interpretive Data Percent cell count reference ranges are not reported, since discordance with absolute values may lead to misinterpretation of CBC data. Current Interpretive Data was last revised on 2017. Lymphocyte pct 38.7 % [facility] Comment: Interpretive Data Percent cell count reference ranges are not reported, since discordance with absolute values may lead to misinterpretation of CBC data. Current Interpretive Data was last revised on 2017. Monocyte pct 7.2 % [facility] Comment: Interpretive Data Percent cell count reference ranges are not reported, since discordance with absolute values may lead to misinterpretation of CBC data. Current Interpretive Data was last revised on 2017. Eosinophil pct 2.5 % [facility] Comment: Interpretive Data Percent cell count reference ranges are not reported, since discordance with absolute values may lead to misinterpretation of CBC data. Current Interpretive Data was last revised on 2017. Basophil pct 0.8 % [facility] Comment: Interpretive Data Percent cell count reference ranges are not reported, since discordance with absolute values may lead to misinterpretation of CBC data. Current Interpretive Data was last revised on 2017. Blood specimen (specimen) 01/28/2020 7:25 AM CDT 01/28/2020 7:58 AM CDT us K Geoffrey Terry MD LAB BLOOD ORDERABLES Final Resul t [facility] Department [place] [address] * Comprehensive metabolic panel (01/28/2020 7:25 AM CDT) Sodium 138 135 - 145 mmol/L [facility] Potassium, pl 3.9 3.3 - 4.9 mmol/L [facility] Chloride 101 97 - 110 mmol/L [facility] CO2 29 22 - 32 mmol/L [facility] Anion gap 8 2 - 15 mmol/L [facility] BUN 16 8 - 25 mg/dL [facility] Creatinine 0.80 0.60 - 1.10 mg/dL [facility] Glucose 104 70 - 199 mg/dL [facility] Comment: Interpretive Data Fasting glucose [...] interpretive data was last revised 2017. Calcium 9.2 8.5 - 10.3 mg/dL [facility] Bilirubin, total 0.6 0.1 - 1.2 mg/dL [facility] Protein, pl 7.3 6.5 - 8.5 g/dL [facility] Albumin 4.2 3.5 - 5.0 g/dL [facility] Alk phos 52 40 - 130 Units/L [facility] ALT 40 7 - 45 Units/L [facility] AST 33 10 - 45 Units/L [facility] Blood specimen (specimen) 01/28/2020 7:25 AM CDT 01/28/2020 7:58 AM CDT K Geoffrey Terry MD LAB BLOOD ORDERABLES Final Resul t [facility] Department [place] [address] * Lipid panel (01/28/2020 7:25 AM CDT) Cholesterol 166 30 - 199 mg/dL [facility] Comment: Interpretive Data Ages < or = [...] Data was last revised on 2018. Triglycerides 111 <=149 mg/dL [facility] Comment: Interpretive Data Ages < or = [...] revised on 2018. HDL 50 >=40 mg/dL [facility] Comment: Interpretive Data Ages < or = [...] was last revised on 2018. LDL, calculated 94 <=129 mg/dL [facility] Comment: Interpretive Data Ages < or = [...] was last revised on 2018. Non-HDL Cholesterol 116 mg/dL [facility] Comment: Interpretive Data Ages < or = [...] last revised on 2018. Chol/HDL ratio 3 [facility] Blood specimen (specimen) 01/28/2020 7:25 AM CDT 01/28/2020 7:58 AM CDT us K Geoffrey Terry MD LAB BLOOD ORDERABLES Final Resul t [facility] Department [place] [address] * TSH (01/28/2020 7:25 AM CDT) Thyroid Stimulating Hormone 2.50 0.30 - 4.20 mcIUnit/mL [facility] Blood specimen (specimen) 01/28/2020 7:25 AM CDT 01/28/2020 7:58 AM CDT Janine Terry MD LAB BLOOD ORDERABLES Final Resul t [facility] [place] [address] * T4, free (01/28/2020 7:25 AM CDT) Free T4 1.10 0.90 - 1.70 ng/dL [facility] Blood specimen (specimen) 01/28/2020 7:25 AM CDT 01/28/2020 7:58 AM CDT K Geoffrey Terry MD LAB BLOOD ORDERABLES Final Resul t Performing Organization Address [facility] de Phone Number [facility] [place] [address] * CBC with auto differential (01/28/2020 7:25 AM CDT) [facility] WBC 6.4 3.8 - 9.9 K/cumm [facility] Hgb 14.0 11.9 - 15.5 g/dL [facility] Hct 41.6 35.6 - 45.5 % [facility] Plt 253 150 - 400 K/cumm [facility] MPV 10.9 9.1 - 12.3 fL [facility] RBC 4.61 3.90 - 5.20 M/cumm [facility] MCV 90.2 81.3 - 96.4 fL [facility] MCH 30.4 27.1 - 33.3 pg [facility] MCHC 33.7 32.3 - 35.7 g/dL [facility] RDW CV 13.1 11.1 - 14.9 % [facility] RDW SD 43.1 35.7 - 48.1 fL [facility] NRBC abs 0.00 0.00 - 0.01 K/cumm [facility] Blood specimen (specimen) 01/28/2020 7:25 AM CDT 01/28/2020 7:58 AM CDT Janine Terry MD LAB BLOOD ORDERABLES Final Resul t Performing Organization Address City/[facility]/ZIP Co de Phone Number [facility] Department [place] [address] * (ABNORMAL) Urinalysis reflex to microscopic and culture Urine (01/28/2020 7:17 AM CDT) Color, ur Yellow Yellow [facility] Clarity, ur Clear Clear [facility] Specific gravity, ur 1.009(L) 1.010 - 1.025 [facility] pH, urine 7 [facility] Protein, ur ql Negative Negative [facility] Glucose, ur ql Negative Negative [facility] Ketones, ur Negative Negative [facility] Bilirubin, ur Negative Negative [facility] Blood, ur Negative Negative [facility] Urobilinogen, ur <2.0 <2.0 mg/dL [facility] Nitrite, ur Negative Negative [facility] Leukocyte esterase, ur Negative Negative [facility] UA reflex comment Reflex conditions for microscopic UA and culture not met. [facility] Urine 01/28/2020 7:17 AM CDT 01/28/2020 9:44 AM CDT Narrative [facility] - 01/28/2020 9:53 AM CDT ?? Urine pH is affected by diet, medications, systemic acid-base disturbances, and renal tubular function. ??pH may affect urinary stone formation. ??For example, urine pH below 6.0 may help reduce the tendency for calcium phosphate stones and pH greater than 6.0 may reduce the tendency for uric acid stone formation. Source: [employer]. Last revised 05-25-2017 Janine Terry MD LAB MICROBIOLOGY - GENERAL ORDER AMBER Final Result Performing Organization Address [facility]/ZIP Co de Phone Number [facility] Department [place] [address] documented in this encounter Visit Diagnoses Diagnosis Encounter for screening for osteoporosis documented in this encounter Care Teams Transit Mixer Operator Relationship Specialty Start Date End Date Janine Terry MD [address] [place] [address] PCP - General Family Medicine 03/06/19 01/19/22 Adam English DO [address] [place] [address] Photogrammetric Surveyor Gastroenterology 03/26/19 06/05/23 documented as of this encounter
--- OUTSIDE RECORDS SUMMARY | 2024-05-20 13:11 | XMS_ITS | Encounter Summary ---
Author Organization [facility] Address [address] [place] [address] Phone Care Team Providers Care Central Sterilization Technician Name Role Phone Janine Terry MD Primary Care Provider [phone] Encounter Details Date Type Department Care Team (Late st Contact Info) Description 03/19/2019 Orders Only [facility] Surgery [address] [facility] Advanced Medicine 8th [place] [address] [place] [address] Provider, MD Channing [address] [place], [place] [id number] Social History Tobacco Use Types Packs/Day Years Used Date Smoking Tobacco: Never Assessed Comments Unknown Sex and Gender Information Value Date Recorded Sex Assigned at Not on file Legal Sex Female 2:22 AM FLOATMAN Gender Identity Female 05/18/2019 7:17 PM FLOATMAN Sexual Orientation Straight 05/18/2019 7: 17 PM FLOATMAN documented as of this encounter Plan of Treatment Not on file documented as of this encounter Procedures Procedure Name Priority Date/Time Associated Diagnosis Comments SCAN - RADIOLOGY/IMAGING Routine 02/23/2019 SCAN - LABS Routine 08/16/2018 SCAN - RADIOLOGY/IMAGING Routine 08/15/2018 SCAN - RADIOLOGY/IMAGING Routine 06/20/2018 COLONOSCOPY - SCAN Routine 01/19/2017 SCAN - PATHOLOGY Routine 01/19/2017 documented in this encounter Results * SCAN - RADIOLOGY/IMAGING (02/23/2019) Anatomical Region Laterality Modality Other us Historical Provider MD Final Res ult * SCAN - LABS (08/16/2018) Historical Provider MD Final Res ult * SCAN - RADIOLOGY/IMAGING (08/15/2018) Anatomical Region Laterality Modality Other [facility] Provider MD Final Res ult * SCAN - RADIOLOGY/IMAGING (06/20/2018) Anatomical Region Laterality Modality Other [facility] Provider Final Res ult * COLONOSCOPY - SCAN (01/19/2017) [facility] Provider Final Res ult * SCAN - PATHOLOGY (01/19/2017) [facility] Provider MD Final Res ult documented in this encounter Visit Diagnoses Not on filedocumented in this encounter Care Teams Central Sterilization Technician Relationship Specialty Start Date End Date Janine Terry MD [address] [place] [address] PCP - General Family Medicine 03/06/19 01/19/22 documented as of this encounter
--- OUTSIDE RECORDS SUMMARY | 2024-05-20 13:11 | XMS_ITS | Encounter Summary ---
Author Organization [facility] Healthcare Address [address] [place] [address] Care Team Providers Care Wet Wheeler Name Role Phone Unavailable Primary Care Provider Unavailabl e Encounter Details Date Type Department Care Team (Late st Contact Info) Description 06/30/2010 12:01 AM ROVING CARRIER - 06/30/2010 11:59 PM ROVING CARRIER Hospital Encounter [facility] Adam English, DO [address] [address] Special screening for malignant neoplasms, colon; Internal hemorrhoids Social History Tobacco Use Types Packs/Day Years Used Date Smoking Tobacco: Never Assessed Comments Unknown Sex and Gender Information Value Date Recorded Sex Assigned at Not on file Legal Sex Female 2:22 AM ROVING CARRIER Gender Identity Female 05/18/2019 7:17 PM ROVING CARRIER Sexual Orientation Straight 05/18/2019 7: 17 PM ROVING CARRIER documented as of this encounter Procedure Notes * Provider, MD Channing - 06/30/2010 12:00 AM CSTAssociated Order(s): COLONOSCOPY PROCEDURE REPORT Patient: JOSY FIORE Account: [id number] Room No: : 1960 Patient Type: OPA Attend.: Adam English D.O. Admit Date: 06/30/2010 Dict.: Adam English D.O. Disch. Date: REVISED: Changed from a consult to a procedure. 07/02/2010 11:15 DATE OF CONSULTATION 06/30/2010 HISTORY OF PRESENT ILLNESS This is a very pleasant lady who is being admitted for colon cancer and polyp surveillance. POSTOPERATIVE DIAGNOSES 1. Negative colonoscopy. 2. Internal hemorrhoidal tissue. ANESTHESIA MAC. COMPLICATIONS None. PROCEDURE PERFORMED Colonoscopy. INSTRUMENT USED Fujinon video colonoscope. REFERRING PHYSICIAN Dr. Mesa ENDOSCOPIST Dr. Adam English RECOMMENDATIONS 1. Post-sedation instructions. 2. Fiber. PROCEDURE The benefits, risks, complications and alternatives were explained in detail to the patient. These were understood, assumed, and written consent was obtained. The risks and complications included, but were not limited to hemorrhage, perforation, infection, and blood transfusions, surgery and missed lesion. Explained the risks of sedation, including allergic reaction, cardiopulmonary arrest, heart attack, stroke and pneumonia. The patient understood the procedure. All questions were answered. The patient was placed in the left lateral decubitus position. Sedated by the department of anesthesiology. Digital rectal examination was performed and was unremarkable. Using the Fujinon video colonoscope, it was introduced into the rectum and was advanced to the cecum with relative ease. The cecum was identified by the appendiceal opening and the ileocecal valve. On withdrawal of the colonoscope, the mucosa was examined in a circumferential manner. No evidence of ulcer, mass or neoplasia noted. The scope was withdrawn back in the rectum. It was examined in forward and retroflexion views. Internal hemorrhoidal tissue was noted. The scope was withdrawn from the patient. The patient tolerated the procedure well with no immediate complications. Loki Meyers TD: 06/30/2010 12:35 CC: Dr. Mesa PROCEDURE REPORT Authenticated by Adam English DO On 07/06/2010 10:34:08 AM documented in this encounter Plan of Treatment Not on file documented as of this encounter Procedures Procedure Name Priority Date/Time Associated Diagnosis Comments COLONOSCOPY 06/30/2010 12:00 AM ROVING CARRIER documented in this encounter Results * COLONOSCOPY (06/30/2010 12:00 AM ROVING CARRIER) Anatomical Region Laterality Modality Other Narrative 06/30/2010 12:00 AM ROVING CARRIER Ordered by an unspecified provider. Procedure Note Provider, MD Channing - 06/30/2010 12:00 AM CST PROCEDURE REPORT Patient: JOSY FIORE Account: [id number] Room No: : 1960 Patient Type: OPA Attend.: Adam English D.O. Admit Date: 06/30/2010 Dict.: Adam English D.O. Disch. Date: REVISED: Changed from a consult to a procedure. 07/02/2010 11:15 DATE OF CONSULTATION 06/30/2010 HISTORY OF PRESENT ILLNESS This is a very pleasant lady who is being admitted for colon cancer andpolyp surveillance. POSTOPERATIVE DIAGNOSES 1. Negative colonoscopy. 2. Internal hemorrhoidal tissue. ANESTHESIA MAC. COMPLICATIONS None. PROCEDURE PERFORMED Colonoscopy. INSTRUMENT USED ADR Softwaren video colonoscope. REFERRING PHYSICIAN Dr. Mesa ENDOSCOPIST Dr. Adam English RECOMMENDATIONS 1. Post-sedation instructions. 2. Fiber. PROCEDURE The benefits, risks, complications and alternatives were explained indetail to the patient. These were understood, assumed, and written consent was obtained. The risks and complications included, but were not limited to hemorrhage, perforation, infection, and blood transfusions, surgery and missed lesion. Explained the risks of sedation, including allergic reaction, cardiopulmonary arrest, heart attack, stroke and pneumonia.The patient understood the procedure. All questions were answered. The patient was placed in the left lateral decubitus position. Sedatedby the department of anesthesiology. Digital rectal examination wasperformed and was unremarkable. Using the Fujinon video colonoscope, it wasintroduced into the rectum and was advanced to the cecum with relative ease. Thececum was identified by the appendiceal opening and the ileocecal valve. On withdrawal of the colonoscope, the mucosa was examined in acircumferential manner. No evidence of ulcer, mass or neoplasia noted. The scope was withdrawn back in the rectum. It was examined in forwardand retroflexion views. Internal hemorrhoidal tissue was noted. The scopewas withdrawn from the patient. The patient tolerated the procedure well withno immediate complications. Loki Meyers/tenisha TD: 06/30/2010 12:35 CC: Dr. Mesa PROCEDURE REPORT Authenticated by Adam English DO On 07/06/2010 10:34:08 AM us Historical Provider ENDOSCOPY PROCEDURES Temi l Result documented in this encounter Visit Diagnoses Diagnosis Special screening for malignant neoplasms, colon Internal hemorrhoids Internal hemorrhoids without mention of complication documented in this encounter
--- OUTSIDE RECORDS SUMMARY | 2024-05-20 13:11 | XMS_ITS | Encounter Summary ---
Author Organization [facility] Healthcare Address [address] [place] [address] Care Team Providers Care Director Biomedical Engineering Name Role Phone Unavailable Primary Care Provider Unavailabl e Encounter Details Date Type Department Care Team (Late st Contact Info) Description 05/30/2007 12:01 AM NETWORK PRICING CONSULTANT - 05/30/2007 11:59 PM NETWORK PRICING CONSULTANT Hospital Encounter [facility] Hernandez, DO [address] [address] Social History Tobacco Use Types Packs/Day Years Used Date Smoking Tobacco: Never Assessed Comments Unknown Sex and Gender Information Value Date Recorded Sex Assigned at Not on file Legal Sex Female 2:22 AM NETWORK PRICING CONSULTANT Gender Identity Female 05/18/2019 7:17 PM NETWORK PRICING CONSULTANT Sexual Orientation Straight 05/18/2019 7: 17 PM NETWORK PRICING CONSULTANT documented as of this encounter Plan of Treatment Not on file documented as of this encounter Visit Diagnoses Not on filedocumented in this encounter
--- OUTSIDE RECORDS SUMMARY | 2024-05-20 13:11 | XMS_ITS | Encounter Summary ---
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, including shoulder Social History Tobacco Use Types Packs/Day Years Used Date Smoking Tobacco: Never Assessed Comments Unknown Sex and Gender Information Value Date Recorded Sex Assigned at Not on file Legal Sex Female 2:22 AM EMERGENCY DEPARTMENT TECHNICIAN Gender Identity Female 05/18/2019 7:17 PM EMERGENCY DEPARTMENT TECHNICIAN Sexual Orientation Straight 05/18/2019 7: 17 PM EMERGENCY DEPARTMENT TECHNICIAN documented as of this encounter Plan of Treatment Not on file documented as of this encounter Visit Diagnoses Diagnosis Other specified pre-operative examination 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
--- OUTSIDE RECORDS SUMMARY | 2024-05-20 13:11 | XMS_ITS | Encounter Summary ---
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
--- OUTSIDE RECORDS SUMMARY | 2024-05-20 13:11 | XMS_ITS | Encounter Summary ---
Author Organization [facility] Address [address] [place] [address] Phone Care Team Providers Care Nursing Center Tutor Name Role Phone Jainne Terry MD Primary Care Provider [phone] Encounter Details Date Type Department Care Team (Late st Contact Info) Description 03/13/2019 Orders Only [facility] Gastroenterology [address] 8th [place] [address] [place] [address] Ana Soni RMA Social History Tobacco Use Types Packs/Day Years Used Date Smoking Tobacco: Never Assessed Comments Unknown Sex and Gender Information Value Date Recorded Sex Assigned at Not on file Legal Sex Female 2:22 AM CIGAR SORTER Gender Identity Female 05/18/2019 7:17 PM CIGAR SORTER Sexual Orientation Straight 05/18/2019 7: 17 PM CIGAR SORTER documented as of this encounter Plan of Treatment Not on file documented as of this encounter Visit Diagnoses Not on filedocumented in this encounter Historical Medications * This list may reflect changes made after this encounter. ALPRAZolam (XANAX) 0.25 mg tablet Take 1 tablet (0.25 mg total) by mouth 3 (three) times a day as needed for anxiety ondansetron ODT (ZOFRAN-ODT) 4 mg disintegrating tablet DISSOLVE 1 TABLETS ON TONGUE EVERY 6 TO 8 HOURS NEEDED FOR NAUSE. 0 02/23/2019 9 levoFLOXacin (LEVAQUIN) 750 mg tablet TK 1 T PO D 0 02/23/2019 11/12/201 9 DOXYCYCLINE HYCLATE 100 mg capsule TK 1 C PO BID 1 02/23/2019 01 9 dicyclomine (BENTYL) 20 mg tablet TK 1 T PO TID PRF ABD CRAMPS 0 02/23/2019 9 venlafaxine XR (EFFEXOR-XR) 150 mg 24 hr capsuleIndications:A nxiety with Depression Take 150 mg by mouth nightly 2 SUMAtriptan (IMITREX) 100 mg tablet Take 100 mg by mouth daily as needed 9 metroNIDAZOLE (FLAGYL) 500 mg tablet Take 500 mg by mouth 3 times daily 08/15/2018 9 cholecalciferol (VITAMIN D-3) 2,000 unit capsule Take 2,000 Units by mouth nightly 2 cetirizine (ZyrTEC) 10 mg tablet Take 10 mg by mouth daily 9 added in this encounter Care Teams Nursing Center Tutor Relationship Specialty Start Date End Date Janine Terry MD [address] [place] [address] PCP - General Family Medicine 03/06/19 01/19/22 documented as of this encounter
== END 2024-05-13 08:23 | disposition home or self-care (01) ==
LOC: ANHGOSHLAB 08:23
PROVIDERS: PCP Family Medicine; Visit Provider Nurse Practitioner Family
DX: E66.9 Obesity, unspecified (principal)
CPT/HCPCS: 36415; 80061

== ENCOUNTER 2025-02-13 11:13 | Emergency (ER) | payer MEDICARE, SELFPAY ==
--- NOTE | ~2025-02-13 | CT_ITS ---
CT abdomen pelvis w con Clinical History: LLQ abdominal pain . Comparison: 02/23/2019 Technique: Axial images lung bases to symphysis pubis IV contrast information not in PACS Coronal, sagittal reformats CT images acquired with automatic exposure control for dose reduction DLP: 1547 mGy-cm Findings: Lung bases: Minimal scarring. Visualized heart and pericardium: Coronary artery calcifications. Liver: Mild steatosis. Gallbladder: Removed. Spleen: Unremarkable. Pancreas: Unremarkable. Adrenal glands: Unremarkable. Kidneys: Right kidney- No hydronephrosis. No renal stones. Left kidney- No hydronephrosis. No renal stones. Distal esophagus/stomach: Unremarkable. Small bowel loops: Normal caliber and wall thickness. Small duodenal diverticula. Colon: Diverticula. Rectal anastomosis. Normal RLQ appendix. Nodes: No enlarged nodes. Peritoneum: No ascites. No free air. Urinary bladder: Unremarkable. Uterus: Removed. Adnexa: No masses. Bones: No acute bony abnormality. Soft tissues: Small umbilical hernia with fat. Small paraumbilical hernia with fat. Aorta: No aneurysm or dissection. IVC: Unremarkable. Main portal vein/SMV/splenic vein: Patent. IMPRESSION: 1. No acute findings. Reviewed, dictated and finalized at location R. IMPRESSION: 1. No acute findings.
[2025-02-13 11:39] VITALS: BP 149/87; PULSE 95; RESP 18; TEMP 36.6; O2SAT 100
--- OUTSIDE RECORDS SUMMARY | 2025-02-13 11:41 | XMS_ITS | Encounter Summary ---
Author Organization [facility] Address [address] [place] [address] Phone Care Team Providers Care Monitoring And Evaluation Advisor Name Role Phone Odilon Chester MD Unavailable [phone] Roosevelt Thomas MD Unavailable [phone] Odilon Rao MD Primary Care Provider [phone] Reason for Visit * Reason Onset Date Comments Labs Due (02/2025) 02/13/2025 Encounter Details Date Type Department Care Team (Late st Contact Info) Description 02/13/2025 Telephone [facility] Gastroenterology [address] 12th [place] [address] [place] [address] Anusha Rodrigez CNA Labs Due (02/2025) Social History Tobacco Use Types Packs/Day Years Used Date Smoking Tobacco: Never Smokeless Tobacco: Never Alcohol Use Standard Drinks/Week Comments Not Currently 0 (1 standard drink = 0.6 oz pur e alcohol) AUDIT-C Answer Date Recorded Q1: How often do you have a drink containing alcohol? Never 10/14/2024 Q2: How many drinks containi ng alcohol do you have on a typical day when you are drinking? Patient does not drink Q3: How often do you have si x or more drinks on one occasion? Never 10/14/2024 Hunger Vital Sign Answer Date Recorded Within the past 12 months, y ou worried that your food would run out before you got the money to buy more. Never true 09/25/19 25 Within the past 12 months, t he food you bought just didn't last and you didn't have money to get more. Never true 09/24/2024 Personal Safety Answer Date Recorded Have you ever been in or are you currently in a harmful physical or emotional relationship or is someone making you feel afraid or unsafe? Denies 07/17/2024 Comments No Sex and Gender Information Value Date Recorded Sex Assigned at Not on file Legal Sex Female 2:22 AM ROOM SERVICE BELLHOP Gender Identity Female 05/18/2019 7:17 PM ROOM SERVICE BELLHOP Sexual Orientation Straight 05/18/2019 7: 17 PM ROOM SERVICE BELLHOP documented as of this encounter Miscellaneous Notes * Telephone Encounter - Anusha Rodrigez CNA - 02/13/2025 10:33 AM CDT Lab orders placed & mailed to patient ----- Message from Nurse Sharee Merchant sent at 11/29/2024 8:16 AM CDT ----- Regarding: HFP in 3-4 months (February 2025-March 2025) HFP in 3-4 months (February 2025-March 2025) Dx: elevated LFTs, hepatic steatosis documented in this encounter Plan of Treatment Scheduled Orders Name Type Priority Associated Diagnoses Orde r Schedule Hepatic function panel Lab Routine Elevated liver enzymes Hepatic steatosis Expected: 02/20/2025, Expires: 02/13/2026 documented as of this encounter Goals Goal Patient Goal Type Associated Problems Recent Progress Patient-Stated? Author CCM Chronic Pain Care Plan Chronic Care Management Improving( 10:38 AM CDT) No Eve Lowery, ERASTO Note: Problem: Chronic Pain Goals: 1. Minimize further functional decline 2. Maximize quality of life 3. Control pain Strategies: - Activity/exercise program recommendation - Conservative stepwise pain medicine strategy with multi-disciplinary approach - Recommend healthy lifestyle strategies and compensatory methods as needed documented as of this encounter Visit Diagnoses Diagnosis Elevated liver enzymes- Primary Other nonspecific abnormal serum enzyme levels Hepatic steatosis Other chronic nonalcoholic liver disease documented in this encounter Care Teams Monitoring And Evaluation Advisor Relationship Specialty Start Date End Date Odilon Rao MD [address] [place] [address] [address] PCP - General Family Medicine 01/20/25 Odilon Chester MD [address] [facility] [place] [address] Referring Physician Gastroenterology 06/06/23 Roosevelt Thomas MD [address] [facility] [place] [address] Fellow Pulmonary Disease 06/06/23 documented as of this encounter
--- OUTSIDE RECORDS SUMMARY | 2025-02-13 11:41 | XMS_ITS | Encounter Summary ---
Author Organization [facility] Address [address] [place] [address] Care Team Providers Care Associate Director Regulatory Affairs Name Role Phone Janine Terry MD Primary Care Provider [phone] Adam English DO Unavailable [phone] Janine Terry MD Primary Care Provider [phone] Mellissa Rodríguez Primary Care Provider Bj Montaño MD Primary Care Provider [phone] Odilon Chester MD Unavailable [phone] Roosevelt Thomas MD Unavailable [phone] Leticia Thorne RESEARCH RN SPEC Primary Care Provider [phone] Unknown, Notinfile Primary Care Provider Unavail able Odilon Rao MD Primary Care Provider [phone] Encounter Details Date Type Department Care Team (Late st Contact Info) Description 12/26/2019 Telephone [facility] [address] [address] Julia Osborne RN Social History Tobacco Use Types Packs/Day Years Used Date Smoking Tobacco: Never Smokeless Tobacco: Never Alcohol Use Standard Drinks/Week Comments Not Currently 0 (1 standard drink = 0.6 oz pur e alcohol) Comments No Sex and Gender Information Value Date Recorded Sex Assigned at Not on file Legal Sex Female 2:22 AM ARCHAEOLOGY PROFESSOR Gender Identity Female 05/18/2019 7:17 PM ARCHAEOLOGY PROFESSOR Sexual Orientation Straight 05/18/2019 7: 17 PM ARCHAEOLOGY PROFESSOR documented as of this encounter Plan of [...] COVID: Suspected 05/12/2022 05/12/2022 05/12/2022 2:53 PM ARCHAEOLOGY PROFESSOR COVID: Suspected 06/22/2022 06/22/2022 06/22/2022 4:37 PM ARCHAEOLOGY PROFESSOR COVID19 06/22/2022 06/22/2022 07/02/2022 3:05 AM ARCHAEOLOGY PROFESSOR COVID: Recovered Comment:Added based on recent COVID infection. 07/02/2022 07/04/2022 09/30/2022 3:05 AM C DT documented as of this encounter Care Teams Associate Director Regulatory Affairs Relationship Specialty Start Date End Date Janine Terry MD [address] [place] [address] PCP - General Family Medicine 03/06/19 01/19/22 Janine Terry MD [address] [place] [address] PCP - General 01/20/22 01/20/22 Mellissa Rodríguez PA [address] [place] [address] PCP - General Physician Nursing Staff Development Coordinator 01/21/22 04/14/22 Bj Montaño MD [address] [place] [address] PCP - General Family Medicine 04/15/22 02/19/24 Leticia Thorne, RESEARCH RN SPEC [address] [place] [address] PCP - General Family Medicine 02/20/24 01/08/25 Unknown, Notinfile PCP - General 01/09/25 01/19/25 Odilon Rao MD [address] [place] [address] [facility] [address] PCP - General Family Medicine 01/20/25 Adam English DO [address] [place] [address] Specifications Writer Gastroenterology 03/26/19 06/05/23 Odilon Chester MD [address] [facility] [place] [address] Referring Physician Gastroenterology 06/06/23 Roosevelt Thomas MD [address] [facility] [place] [address] Fellow Pulmonary Disease 06/06/23 documented as of this encounter
--- OUTSIDE RECORDS SUMMARY | 2025-02-13 11:41 | XMS_ITS | Clinical Summary ---
Author Organization [facility] Address [address] [place] [address] Care Team Providers Care Salesforce Business Analyst Name Role Phone Odilon Chester MD Unavailable [phone] Roosevelt Thomas MD Unavailable [phone] Odilon Rao MD Primary Care Provider [phone] Allergies Active Allergy Reactions Criticality Noted Date Comments Enoxaparin Hives,Itching,Redness,Swelling Medium 08/06 Droperidol Anxiety Low 03/26/2019 irritability Penicillins Swelling Medium 02/06/2017 Medications ALPRAZolam (XANAX) 0.25 mg tablet Take 1 tablet (0.25 mg total) by mouth 3 (three) times a day as needed for anxiety Active losartan-hydroCHLO ROthiazide (HYZAAR) 50-12.5 mg per tablet /2 tab am 10/15/19 21 Active SUMAtriptan (IMITREX) 100 mg tablet Active azelaic acid 15 % gel APPLY TOPICALLY TO THE AFFECTED AREA TWICE DAILY 11/19/19 23 Active cholecalciferol (Vitamin D3) 2000 unit capsule 1 capsule (2,000 Units total) Active dicyclomine (BENTYL) 20 mg tabletIndications: Irritable Bowel Syndrome Take 1 tablet (20 mg total) by mouth 3 (three) times a day as needed (abdominal cramping and diarrhea) 90 tablet 11 08/24/19 24 Active ondansetron (ZOFRAN) 4 mg tablet Take 1 tablet (4 mg total) by mouth every 8 (eight) hours as needed for nausea or vomiting Active cyanocobalamin (Vitamin B-12) 1,000 mcg sublingual tablet Take 1 tablet (1,000 mcg total) by mouth daily Active vitamin E (AQUASOL E) 400 unit capsuleIndications :Metabolic dysfunction-associ ated steatohepatitis (MASH) Take 2 capsules (800 Units total) by mouth daily 60 capsule 11 04/22/20 24 Active melatonin/soy/coho sh/calc carb (ESTROVEN NIGHTTIME, GREGORIO-MELTN, ORAL) 01/22/20 Active meloxicam (MOBIC) 7.5 mg tablet Take 1 tablet (7.5 mg total) by mouth daily 04/29/20 24 Active omeprazole 20 mg tablet,delayed release (DR/EC) Take 1 tablet (20 mg total) by mouth daily Active UNKNOWN TO PATIENT Calcium , zinc, magnesium, vitamin d Active methocarbamoL (ROBAXIN) 500 mg tablet Take 1 tablet (500 mg total) by mouth 3 (three) times a day as needed for muscle spasms 60 tablet 06/06/19 25 Active Symbicort 160-4.5 mcg/actuation inhaler Inhale 2 puffs 2 (two) times a day Rinse mouth with water after use. Do not swallow. 1 each 07/24/[address] (CYMBALTA) 30 mg capsule Take 1 capsule (30 mg total) by mouth daily 30 capsule 09/07/192025 Active acetaminophen-code ine (TYLENOL with CODEINE #3) 300-30 mg per tablet TAKE 1 TABLET BY MOUTH EVERY 6 TO 8 HOURS NEEDED FOR PAIN WITH FOOD 09/03/19 25 Active pregabalin (LYRICA) 50 mg capsule TAKE 1 CAPSULE BY MOUTH 3 TIMES A DAY. 90 capsule 01/29/20 25 Active iron,carb-FA#9-vit C-D3-B6-B12 125 mg-1 mg-170 mg-1,000 unit tablet 04/14/20 24 2024 Discontinued laz Asencio, alistair,rhamn (AZO VAGINAL HEALTH PROBIOTIC ORAL) 07/16/192024 Discontinued pregabalin (LYRICA) 50 mg capsule Take 1 capsule (50 mg total) by mouth 3 (three) times a day 90 capsule 3 09/07/19 25 2024 Discontinued Active Problems Problem Noted Date Diagnosed Date Hypertension, essential 07/09/2024 Lumbar radiculopathy 06/06/2024 Piriformis syndrome of left side 06/06/2024 Spinal stenosis of lumbar re gion without neurogenic claudication 06/06/2024 Elevated liver enzymes 03/11/2024 Assessment & Plan [...] like a GLP-1 or rezdiffra. Referral to tape transferrer placed. We discussed the importance of weight [...] cataract, both eyes 03/17/2023 Assessment & Plan (09/16/2024 9:32 AM CDT): Borderline VS OS>OD- patient is not bothered at this time. Assessment & Plan (09/15/2023 9:32 AM CDT): Borderline VS OS>OD- patient is not bothered at this time. Assessment & Plan (03/17/2023 10:21 AM CDT): NVS, follow. Posterior vitreous detachment, both eyes 023 Assessment & Plan (09/16/2024 9:32 AM CDT): No worsening of floaters/flashes. Attached 360 with good laser barricade around inferior tear OS. Gave strict return precautions- call if any new floaters, flashes, or curtain/veil over vision. Otherwise can follow annually with DFE. Assessment & Plan (01/31/2024 8:45 AM CDT): [...] without holes/tears/breaks on dilated exam Return to [facility] in 6 months for DFE OU. Assessment & Plan (12/14/2022 2:16 PM CDT): Symptoms started 6/11/23. Exam reassuring today - PVD without holes/tears/breaks on GASKET NOTCHER 360 Return to [facility] in 3 months for DFE OU. Assessment & Plan (11/02/2022 2:11 PM CDT): Symptoms started 10/23/22. Pt seen in ER with PVD, no holes Exam reassuring today - PVD without holes/tears/breaks Discussed natural course Return 1 month DFE OU Retinal tear of left eye 07/29/2022 Assessment & Plan (09/16/2024 9:32 AM CDT): S/p retinopexy 07/2022 Doing well. Well barricaded. Reviewed strict return precautions. Assessment & Plan (01/31/2024 8:45 AM CDT): [...] Tolerated procedure successfully. rtc 1 week at [facility] retina for repeat exam Assessment & Plan [...] (03/27/2019): Added automatically from request for surgery [id number] NAFLD (nonalcoholic fatty liver disease) 019 Resolved Problems Problem Noted Date Diagnosed Date Resolved Date Abnormal CT scan 11/24/2022 06/06/2023 Encounters Date Type Department Care Team Description 02/13/2025 Telephone [facility] Medicine Gastroenterology [address] [place] [address] [place] [id number] Anusha Rodrigez CNA Labs Due (02/2025) 01/23/2025 8:30 AM CDT Office Visit [facility] Medicine Neuro Sleep [address] [place] [address] Kanwal Ames DNP DON (obstructive sleep apnea) (Primary Dx); Periodic limb movement disorder (PLMD); Morbid obesity with body mass index (BMI) of 40.0 to 49.9 (HCC) 01/20/2025 10:17 AM CDT - 01/20/2025 11:59 PM CDT Hospital Encounter [facility] [address] [facility] [address] [place] [address] Yaneli Krishna MD Lumbar radiculopathy (Primary Dx); Spinal stenosis of lumbar region without neurogenic claudication Discharge Disposition: Discharge to home or self care 11/29/2024 Results Follow-Up [facility] Medicine Gastroenterology [address] [place] [address] [place] [address] Betina Gage NP Hepatic function panel 11/28/2024 10:19 AM CDT - 11/28/2024 11:59 PM CDT Hospital Encounter [address] [address] NAFLD (nonalcoholic fatty liver disease) Discharge Disposition: Discharge to home or self care 11/28/2024 10:15 AM CDT Lab [facility] Outpatient Lab at [address] [address] 11/20/[address] [facility] [address] [place] [address] Yaneli Krishna MD Lumbar radiculopathy (Primary Dx) from Last 3 Months Immunizations Immunization Administration Dates Next Due COVID-19 MRNA (MODERNA) [...] 05/15/1994 - 05/14/1995 Right V-Y flap R holiness for BCCa HYSTERECTOMY 05/15/1999 - 05/14/2000 TLH, R SO LESIONECTOMY 05/15/2009 - 05/14/2010 Right benign skin lesion removed from anterior chest COLECTOMY 04/18/2019 Laparoscopic sigmoid colectomy CHOLECYSTECTOMY 05/15/2012 - 05/14/2013 LEFT COLECTOMY 2019 UPPER ENDOSCOPIC ULTRASOUND W/ FNA 12/2022 & 06/2023 Medical History Medical History Date Comments Colorectal polyps Arthritis Few years ago Right ankle and knee NAFLD (nonalcoholic fatty li leida disease) Depression Years Anxiety Years. Stress Ovarian cyst Diverticulitis 2018 Rosacea Cholecystitis GERD (gastroesophageal reflux disease) Migraines 2000 Hypertension 2 years Peptic ulcer disease 1995 Sleep apnea 2022 Diverticulitis of colon 2017 Peptic ulceration 1996 Bowel movement symptom 04/2023 Fatty liver 2016? Cholelithiasis Gallbladder removed 2013 Joint pain 2016? Colon polyp Age 37 Bowel incontinence Family History Medical History Relation Name Comments Colon polyps Brother Huber Hickey Diverticulosis Brother Huber Hickey Diverticulosis Father Abram Hickey Gallbladder disease Father Abram Hickey Heart attack Father Abram Hickey fatal day f ollowing [facility] Diabetes Maternal Grandmother Nancy Lai Cancer Mother Trang Hickey. Colon Colon cancer Mother Trang Hickey. Colon Depression Mother Trang Hickey. Colon Gallbladder disease Mother Trang Hickey. Colon Hypertension Mother Trang Hickey. Colon Anesthesia problems Neg Hx Bleeding Disorder Neg Hx Clotting disorder Neg Hx Malig Hyperthermia Neg Hx Stroke Neg Hx Sudden Cardiac Neg Hx Relation Name Status Comments Brother Huber Hickey Father Abram Hickey Maternal Grandmother Nancy Rodriguezks Mother Trang Hickey. Colon Social History Tobacco [...] on file Legal Sex Female 2:22 AM PRESS BREAKER Gender Identity Female 05/18/2019 7:17 PM PRESS BREAKER Sexual Orientation Straight 05/18/2019 7: 17 PM PRESS BREAKER Obstetrics History Last Filed Vital Signs Vital Sign Reading Time Taken Comments Blood Pressure 113/77 01/23/2025 8:23 AM CDT Pulse 82 01/23/2025 8:23 AM CDT Temperature 36.8 C (98.2 F) 01/23/2025 8:23 AM CDT Respiratory Rate 16 01/20/2025 10:28 AM CDT Oxygen Saturation 98% 01/23/2025 8:23 AM CDT Inhaled Oxygen Concentration - - Weight 130.6 kg (288 lb) 01/23/2025 8:23 AM CDT Height 177.8 cm (5' 10) 01/23/2025 8:23 AM CDT Body Mass Index 41.32 01/23/2025 8:23 AM CDT Plan of Treatment Health Maintenance Due Date Last Done Comments Depression Screening 1960 Osteoporosis Screening-Bone Density Scan 01/27/2022 01/28/2020 Well Visit 65+ 2023 Covid-19 Vaccine (2024-2 6 season) 2025 02/23/2023, 11/06/2021, 04/16/2021, Additional history exists Influenza Vaccine (#1) 2025 3, 02/18/2022, 02/21/2020, Additional history exists Breast Cancer Screening-Mammogram 04/22/2025 04/22/2024, 04/20/2023, 04/15/2022, Additional history exists Fall Risk Assessment 07/17/2025 07/17/2024 Colon Cancer Screening-Colonoscopy 01/04/2033 01/04/2023, 06/30/2010 DTaP/Tdap/Td Vaccine (2 - Td or Tdap) 06/11/2033 06/11/2023, 04/16/2002 Zoster Vaccine Completed 12/05/2018, 09/28/2018 Colon Cancer Screening-CT Colonography Discontinued 01/04/2023, 06/30/2010 Colon Cancer Screening-DNA Stool Discontinued 01/05/20, 06/30/2010 Colon Cancer Screening-FIT Discontinued 01/04/2023, Colon Cancer Screening-Sigmoidoscopy Discontinued 01/04/2023, 06/30/2010 Pneumococcal vaccine 65+ Completed 06/11/2023 Hepatitis C Screening Completed 11/27/2023, 022 Hepatitis B Screening Completed 03/11/2024 Goals Goal Patient Goal Type Associated Problems Recent Progress Patient-Stated? Author CCM Chronic Pain Care Plan Chronic Care Management Improving( 10:38 AM CDT) Eve Strange, RN Note: Problem: Chronic Pain Goals: 1. Minimize further functional decline 2. Maximize quality of life 3. Control pain Strategies: - Activity/exercise program recommendation - Conservative stepwise pain medicine strategy with multi-disciplinary approach - Recommend healthy lifestyle strategies and compensatory methods as needed Procedures Procedure Name Priority Date/Time Associated Diagnosis Comments HEPATIC FUNCTION PANEL Routine 11/28/2024 10:19 AM CDT NAFLD (nonalcoholic fatty liver disease) SCREENING MAMMOGRAM BILATERAL W LALO Schedule Routine, Read Routine (OP Routine) 04/22/2024 9:16 AM PRESS BREAKER Screening mammogram, encounter for HEPATITIS PANEL, ACUTE Routine 11/27/2023 8:39 AM CDT Elevated LFTs Hepatic steatosis COLONOSCOPY 01/04/2023 12:55 PM CDT DEXA AXIAL SKELETON BONE DENSITY 1 OR MORE SITES Schedule Routine, Read Routine (OP Routine) 01/28/2020 8:48 AM CDT Encounter for screening for osteoporosis from Last 3 Months or Most Recently Relevant to Health Maintenance Results * Hepatic function panel (11/28/2024 10:19 AM CDT) Bilirubin, total 0.6 0.1 - 1.2 mg/dL Bilirubin, direct 0.2 0.1 - 0.3 mg/dL [facility] Protein, pl 6.6 6.5 - 8.5 g/dL [facility] Albumin 3.9 3.5 - 5.0 g/dL [facility] Alk phos 48 40 - 130 Units/L [facility] ALT 25 7 - 45 Units/L [facility] AST 36 10 - 45 Units/L [facility] Blood 11/28/2024 10:1 9 AM CDT 11/28/2024 5:21 PM CDT Narrative [facility] - 11/28/2024 6:11 PM CDT Josy, Please take these orders to any lab to be completed in Mid October to December. If you do not use a [facility] lab, please call [phone] when you complete the lab with the name of the lab so we can obtain results. Please fax results to [phone] call [phone] with any questions. Betina Gage NP LAB BLOOD ORDERABLES [facility] al Result [facility] [address] Department [place] [address] * Screening Mammogram Bilateral W Lalo (04/22/2024 9:16 AM PRESS BREAKER) Anatomical Region Laterality Modality Breast Bilateral Mammography Narrative 04/22/2024 4:59 PM PRESS BREAKER Mammogram Technique: Bilateral Digital Breast Tomosynthesis, Bilateral C-view 2D Screening mammogram. Views obtained: bilateral craniocaudal and bilateral mediolateral oblique. Computer Aided Detection was performed. Mammogram Findings: The present examination has been compared to prior imaging studies performed at [facility] on 04/15/2022, 04/20/2023 and 05/05/2023. There are scattered areas of fibroglandular density. There is no suspicious abnormality in either breast. Impression: There is no mammographic evidence of malignancy. Clinical follow-up for diffuse bilateral breast pain is recommended. Annual screening mammography is recommended. OVERALL FINAL ASSESSMENT: BI-RADS CATEGORY 1: Negative. Procedure Note Gael Burr MD - 04/22/2024 Mammogram Technique: Bilateral Digital Breast Tomosynthesis, Bilateral C-view 2D Screening mammogram. Views obtained: bilateral craniocaudal and bilateral mediolateral oblique. Computer Aided Detection was performed. Mammogram Findings: The present examination has been compared to prior imaging studies performed at [facility] on 04/15/2022, 04/20/2023 and 05/05/2023. There are scattered areas of fibroglandular density. There is no suspicious abnormality in either breast. Impression: There is no mammographic evidence of malignancy. Clinical follow-up for diffuse bilateral breast pain is recommended. Annual screening mammography is recommended. OVERALL FINAL ASSESSMENT: BI-RADS CATEGORY 1: Negative. us Self Screening Mammogram IMG MAMMO PROCEDURES Fi nal Result * Hepatitis panel, acute Blood (11/27/2023 8:39 [...] in accordance with current CDC screening recommendations. Reactive: Positive for HCV antibodies. This may represent current or past HCV infection. Supplemental molecular testing will be automatically performed to determine current infection status in accordance with current CDC screening recommendations. Interpretive data was last revised on 2019. HepBsAg Nonreactive Nonreactive [facility] Blood 11/27/2023 8:39 AM CDT 11/27/2023 2:38 PM CDT Cathi GERONIMO LAB MICROBIOLOGY - [facility] ORDERABLES Final Result BR[facility] [address] Department [place] [address] * COLONOSCOPY (01/04/2023 12:55 PM CDT) Anatomical Region Laterality Modality Other Narrative Procedure Note Odilon Chester MD - 01/04/2023 12:55 PM CDT ENDOSCOPY LAB Patient Name: Josy Fiore Procedure Date: 01/04/2023 12:55 PM Date of : 1960 Admit Type: Outpatient Age: 62 Gender: Female Attending MD: Odilon Chester M.D. Room: [facility] ENDOSCOPY ROOM 03 Note Status: Finalized [...] The scope was passed under direct vision.The [id number] was introduced through the anusand advanced to [...] During normal business hours - Please call [facility] Coordinator: [phone] After hours, evening, nights, weekends and holidays- Please call the hospital thermal surfacing machine operator at and ask for the GI fellow library paraprofessional. Attending Participation: I personally performed the entire [...] AM CDT Impressions 01/28/2020 10:17 AM CDT 1. The bone mineral density of the [...] -2.0 is below the expected range for age. A Z-score below the expected range for age in a patient with recent fractures and/or chronic corticosteroid treatment is consistent with a diagnosis of osteoporosis. B) In post menopausal women and males over 50, comparison of the measured bone mineral density with the average value in young normal subjects (the T-score) has been found to be useful in [...] 1.8 Total Hip (Left) 1.137 1.6 2.7 Procedure Note Heri Gandara MD - 01/28/2020 [...] -2.0 is below the expected range for age. A Z-score below the expected range for age in a patient with recent fractures and/or chronic corticosteroid treatment is consistent with a diagnosis of osteoporosis. B) In post menopausal women and males over 50, comparison of the measured bone mineral density with the average value in young normal subjects (the T-score) has been found to be useful in [...] it. Electronically signed by: Heri Harmon M.D. [facility] Geoffrey Terry MD IM DXA PROCEDURES Final Result from Last 3 Months or Most Recently Relevant to Health Maintenance Insurance [facility] MEDICARE ADVANTAGE [facility] MEDICARE Address: [address] [address] [place] [address] [facility] EMPL[employer]EE HEALTH PLANS Address: [facility] [address] [place] [address] UHC MEDICARE ADVANTAGE [facility] MEDICARE Address: [address] [address] [place] [address] Advance Directives For more information, please contact: [phone] Documents on File Type Date Recorded Patient Line Tender Flakeboard Expl anation ADVANCE DIRECTIVE 04/18/2019 7:53 AM * Full Code (Latest Code Status on File) Date Activated Date Inactivated Comments 07/17/2024 10:50 AM 07/17/2024 5:36 PM * Full Code Date Activated Date Inactivated Comments 07/12/2023 7:11 AM 07/12/2023 2:35 PM * Full Code Date Activated Date Inactivated Comments 01/04/2023 11:56 AM 01/04/2023 6:17 PM * Full Code Date Activated Date Inactivated Comments 04/18/2019 4:13 PM 04/20/2019 7:06 PM Care Teams Salesforce Business Analyst Relationship Specialty Start Date End Date Odilon Rao MD [address] [place] [address] [address] PCP - General Family Medicine 01/20/25 Odilon Chester MD [address] [facility] [place] [address] Referring Physician Gastroenterology 06/06/23 Roosevelt Thomas MD [address] [facility] [place] [address] Fellow Pulmonary Disease 06/06/23
--- OUTSIDE RECORDS SUMMARY | 2025-02-13 11:41 | XMS_ITS | Clinical Summary ---
Author Organization [facility] Address [address] Attn: Epic Prelude ADT LEISA FERREIRA RODRÍGUEZ [address] Care Team Providers Care Patient Registration Rep Name Role Phone Unavailable Primary Care Provider Unavailabl e Social History Tobacco Use Types Packs/Day Years Used Date Smoking Tobacco: Never Assessed Comments Unknown Sex and Gender Information Value Date Recorded Sex Assigned at Not on file Legal Sex Female 5:37 AM RECRUITING COORDINATOR Gender Identity Not on file Sexual Orientation Not on file Plan of Treatment Health Maintenance Due Date Last Done Comments DTAP/TDAP/TD VACCINES (1 - Tdap) 1977 BREAST CANCER SCREENING 1998 COLORECTAL SCREENING 2003 Colorectal Cancer Screening 2003 FIT-DNA Q 3 years 2003 FIT/FOBT Q 1 year 2003 Flex Sig/CT Colonography Q 5 years 2003 PNEUMOCOCCAL VACCINE 50+ YEARS (1 of 1 - PCV) 01/15/20 08 ZOSTER VACCINE (1 of 2) 01/15/2008 OSTEOPOROSIS SCREENING 2023 INFLUENZA VACCINE (#1) 2024 RSV VACCINE (60+ or ) (1 - 1-dose 75+ series) 2033
--- OUTSIDE RECORDS SUMMARY | 2025-02-13 11:41 | XMS_ITS | Encounter Summary ---
Author Organization [employer] Address [address] [place] [address] Care Team Providers Care Automation Qa Analyst Name Role Phone Unavailable Primary Care Provider Unavailabl e Encounter Details Date Type Department Care Team (Latest Contact Info) Description 01/07/2008 Outpatient Historical HIS CARD DIE KEEPER Maribel Armenta MD NO ADDRESS ON FILE Nonspecific Abnormal Unspecified Cardiovascular Function Study; Nonspecific Abnormal Electrocardiogram (ECG) (EKG) Social History Tobacco Use Types Packs/Day Years Used Date Smoking Tobacco: Never Assessed Comments Unknown Sex and Gender Information Value Date Recorded Sex Assigned at Not on file Legal Sex Female 5:37 AM PARTS SALES ASSOCIATE Gender Identity Not on file Sexual Orientation [...] INTERFACE SYSTEM - 01/07/2008 3:33 PM CDT [facility] [place], [place] [address] [place] [address] [email or web address] Cardiac Catheterization Comprehensive Report Patient: Josy Fiore Study ID: [id number] Gender: F : 1960 Age: 47 years Race: 1 Room: Bed: Height: 71 in ( 180.3 cm ) Study Date: January 07, 2008 Patient status: Outpatient Weight: 245.1 lb ( 111.4 kg ) Access. #: [id number] POC: Attending MD: Meet Performing MD: Meet [...] given 2.000 mg VERSED (IVP). NARRATIVE: - Right femoral artery access. A 4F [place] Sheath 10cm sheath was advanced into the [...] 15:13:53 Procedure Note Provider, Historical - 01/07/2008 [facility] [place], [place] [address] [place] [address] [email or web address] Cardiac Catheterization Comprehensive Report Patient: Josy Fiore Study ID: [id number] Gender: F : 1960 Age: 47 years Race: 1 Room: Bed: Height: 71 in ( 180.3 cm ) Study Date: January 07, 2008 Patient status: Outpatient Weight: 245.1 lb ( 111.4 kg ) Access. #: [id number] POC: Attending MD: Meet Performing MD: Meet [...] - Right femoral artery access. A 4F [place] Sheath 10cm sheath was advanced into the [...] 07, 2008 15:13:53 Maribel Armenta MD FLUOROSCOPY ORDERABLES Final Result Performing Organization Address City/State/[facility] Co de Phone Number INTERFACE SYSTEM Refer to clinic/hospital department * PT AND APTT (01/07/2008 1:57 PM CDT) PTT 27.1 24.4 - 36.4 Seconds [facility] Comment: PTT Therapeutic Range: Heparin Level PTT (seconds) <0.10 units/mL <53 0.10 - 0.30 units/mL 53 - 67 0.30 - 0.70 units/mL* 67 - 95* 0.70 - 1.00 units/mL 95 - 116 *corresponds to therapeutic range for unfractionated heparin PROTIME 14.1 12.7 - 15.1 Seconds [facility] INR 1.1 0.9 - 1.1 [facility] Comment: INR Therapeutic Range: Adult: 2.0 - 3.0 for pulmonary embolism or prophylaxis against venous thrombosis or systemic embolization. 2.0 - 3.0 for patients with tissue heart valves. 2.5 - 3.5 for patients with mechanical heart valves or post [place]. Pediatric (12 years and under): 1.5 - 3.0 Although the target range in children is not well established, INR values of 1.5 - 3.0 are recommended for most patients. Higher values have been used in children with prosthetic cardiac valves and hereditary clotting disorders. (<3 days) therapeutic ranges have not been established. Blood specimen (specimen) 01/07/2008 1:57 PM CDT 01/07/2008 2:09 PM CDT Maribel Armenta MD HEMATOLOGY ORDERABLES Edited INTERFACE SYSTEM Refer to clinic/hospital department [facility] CLIA# [id number] [address] [place] [address] * (ABNORMAL) CBC WITH DIFFERENTIAL (01/07/2008 1:57 PM CDT) RBC 4.01 3.90 - 4.90 M/uL [facility] MCHC 33.4 31.5 - 35.5 % [facility] MCV 91.0 82.0 - 99.0 fL [facility] PLATELETS 210 140 - 350 K/uL [facility] HEMOGLOBIN 12.2 11.8 - 14.8 g/dL [facility] RDW 13.4 11.5 - 14.5 % [facility] WBC 5.4 4.0 - 9.8 K/uL [facility] MCH 30.4 27.2 - 32.6 pg [facility] MPV 11.3 9.3 - 12.4 fL [facility] HEMATOCRIT 36.5 35.5 - 44.0 % [facility] RDW-STDEV 44.0 37.1 - 48.7 fL [facility] NEUTROPHILS 42(L) 45 - 70 % [facility] NEUTROPHIL ABSOLUTE 2.24 1.90 - 7.00 K/uL [facility] EOSINOPHILS 5 0 - 7 % [facility] EOSINOPHIL ABSOLUTE 0.25 0.00 - 0.70 K/uL [facility] LYMPHOCYTES 46(H) 16 - 45 % [facility] LYMPHOCYTE ABSOLUTE 2.48 0.70 - 4.50 K/uL [facility] BASOPHILS 1 0 - 2 % [facility] BASOPHILS ABSOLUTE 0.03 0.00 - 0.20 K/uL [facility] MONOCYTES 7 3 - 13 % [facility] MONOCYTE ABSOLUTE 0.37 0.10 - 1.30 K/uL [facility] Blood specimen (specimen) 01/07/2008 1:57 PM CDT 01/07/2008 2:09 PM CDT Maribel Armenta MD HEMATOLOGY ORDERABLES Edited INTERFACE SYSTEM Refer to clinic/hospital department [facility] CLIA# [id number] [address] [place] [address] * BASIC METABOLIC PANEL (01/07/2008 1:57 PM CDT) BUN 18 6 - 20 mg/dL [facility] CHLORIDE 105 96 - 108 mmol/L [facility] GLUCOSE 90 65 - 99 mg/dL [facility] SODIUM 139 135 - 145 mmol/L [facility] CALCIUM 8.8 8.6 - 10.2 mg/dL [facility] Comment:Note new reference armando vo effective 12/13/07 CO2 27 22 - 30 mmol/L [facility] CREATININE 0.78 0.51 - 0.95 mg/dL [facility] POTASSIUM 4.6 3.5 - 4.9 mmol/L [facility] GFR, >60 >=60 mL/min/1.7 sq meter [facility] GFR >60 >=60 mL/min/1.7 sq meter [facility] Comment: Modification of Diet in Renal Disease (MDRD) study formula. Estimated GFR rate interpretative information for both Americans and non- Americans is available on the [facility] Intranet at: [email or web address] Select: Lab Policies and Procedures Select: Reference Ranges - GFR Blood specimen (specimen) 01/07/2008 1:57 PM CDT 01/07/2008 2:09 PM CDT us Maribel Armenta MD CHEMISTRY ORDERABLES Edited INTERFACE SYSTEM Refer to clinic/hospital department [facility] CLIA# [id number] [address] [place] [address] documented in this encounter Visit Diagnoses Diagnosis Nonspecific abnormal unspecified cardiovascular function study Nonspecific abnormal electrocardiogram (ECG) (EKG) documented in this encounter
--- OUTSIDE RECORDS SUMMARY | 2025-02-13 11:41 | XMS_ITS | Encounter Summary ---
Author Organization [facility] Address [address] [place] [address] Phone Care Team Providers Care Air Traffic Supervisor Name Role Phone Odilon Chester MD Unavailable [phone] Roosevelt Thomas MD Unavailable [phone] Leticia Thorne NP Primary Care Provider [phone] Unknown, Notinfile Primary Care Provider Unavail able Odilon Rao MD Primary Care Provider [phone] Encounter Details Date Type Department Care Team (Late st Contact Info) Description 06/07/2024 Orders Only [facility] Medicine Gastroenterology [address] [facility] 2nd Floor [address] [place] [address] Odilon Chester MD [address] [place], [place] [id number] Gastric polyp (Primary Dx) Social History Tobacco Use Types Packs/Day Years Used Date Smoking Tobacco: Never Smokeless Tobacco: Never Alcohol Use Standard Drinks/Week Comments Not Currently 0 (1 standard drink = 0.6 oz pur e alcohol) AUDIT-C Answer Date Recorded Q1: How often do you have a drink containing alcohol? Never 06/06/2024 Q2: How many drinks containi ng alcohol do you have on a typical day when you are drinking? Patient does not drink Q3: How often do you have si x or more drinks on one occasion? Never 06/06/2024 Personal Safety Answer Date Recorded Have you ever been in or are you currently in a harmful physical or emotional relationship or is someone making you feel afraid or unsafe? Denies 07/12/2023 Comments No Sex and Gender Information Value Date Recorded Sex Assigned at Not on file Legal Sex Female 2:22 AM COMMUNITY ASSISTANT Gender Identity Female 05/18/2019 7:17 PM COMMUNITY ASSISTANT Sexual Orientation Straight 05/18/2019 7: 17 PM COMMUNITY ASSISTANT documented as of this encounter Plan of Treatment Not on file documented as of this encounter Goals Goal Patient Goal Type Associated Problems Recent Progress Patient-Stated? Author CCM Chronic Pain Care Plan Chronic Care Management Improving( 10:38 AM CDT) No Eve Lowery RN Note: Problem: Chronic Pain Goals: 1. Minimize further functional decline 2. Maximize quality of life 3. Control pain Strategies: - Activity/exercise program recommendation - Conservative stepwise pain medicine strategy with multi-disciplinary approach - Recommend healthy lifestyle strategies and compensatory methods as needed documented as of this encounter Visit Diagnoses Diagnosis Gastric polyp- Primary Benign neoplasm of stomach documented in this encounter Orders Case Request Count Last Ordered Date First Orde red Date CASE REQUEST GI 1 06/07/2024 documented in this encounter Care Teams Air Traffic Supervisor Relationship Specialty Start Date End Date Leticia Thorne, YOKE PRESSER [address] [place] [address] PCP - General Family Medicine 02/20/24 01/08/25 Unknown, Notinfile PCP - General 01/09/25 01/19/25 Odilon Rao MD [address] [place] [address] [id number] PCP - General Family Medicine 01/20/25 Odilon Chester MD [address] [facility] [address] [place] [address] Referring Physician Gastroenterology 06/06/23 Roosevelt Thomas MD [address] [facility] [address] [place] [address] Fellow Pulmonary Disease 06/06/23 documented as of this encounter
--- OUTSIDE RECORDS SUMMARY | 2025-02-13 11:41 | XMS_ITS | Clinical Summary ---
Author Organization [facility] Address [address] [address] [place] [address] Phone Care Team Providers Care Director Motion Picture Name Role Phone Micky Terry MD Primary Care Provider [phone] Adam English DO Unavailable [phone] Allergies Active Allergy Reactions Criticality Noted Date [...] 76 08/02/2018 4:00 PM CDT Temperature 36.7 C (98 F) 08/02/2018 4:00 PM CDT Respiratory Rate 16 08/02/2018 4:00 PM CDT Oxygen Saturation 95% 08/02/2018 4:00 PM CDT Inhaled Oxygen Concentration - - Weight 126.5 kg (278 lb 12.8 oz) 08/02/2018 4:00 PM CDT Height 179.1 cm (5' 10.5) 08/02/2018 4:00 PM CD T Body Mass Index 39.44 08/02/2018 4:00 PM CDT Plan of Treatment Health Maintenance Due Date Last Done Comments Hepatitis C Virus (HCV) Screening 1960 TdaP Immunization 1960 Cologuard 2003 Immunochemical Fecal Occult Blood 2003 Pneumococcal Immunization (50+ years) (1 of 1 - PCV) 01/15/2008 Colonoscopy 10/04/2023 10/03/2018, 01/19/2017 Colorectal Cancer Screening 10/04/2023 Influenza Immunization (#1) 2025 02/21/2020 SARS-COV-2 Immunization ( season) 2025 11/06/2021, 04/16/2021, 08/06/2020, Additional history exists Respiratory Syncytial Virus (RSV) Immunization (Adult) (1 - 1-dose 75+ series) 2033 Zoster Immunization Completed 12/05/2018, 9 Hepatitis B Immunization Aged Out No longer eligible based on patient's age to complete this topic Human Papillomavirus (HPV) Immunization Aged Out No longer eligible based [...] Recently Relevant to Health Maintenance Care Teams Director Motion Picture Relationship Specialty Start Date End Date Micky Terry MD [address] [place] [address] PCP - General Family Medicine 01/19/17 Adam English DO [address] [place] [address] Consulting Physician Gastroenterology 01/19/17
--- OUTSIDE RECORDS SUMMARY | 2025-02-13 12:01 | XMS_ITS | Encounter Summary ---
Author Organization [facility] Address [address] [place] [address] Phone Care Team Providers Care Inside Technical Sales Representative Name Role Phone Odilon Chester MD Unavailable [phone] Roosevelt Thomas MD Unavailable [phone] Odilon Rao MD Primary Care Provider [phone] Reason for Visit * Reason Onset Date Comments Labs Due (02/2025) 02/13/2025 Encounter Details Date Type Department Care Team (Late st Contact Info) Description 02/13/2025 Telephone [facility]astroenter[facility] [address] [facility] 12th [place] [address] [place] [address] Anusha Rodrigez CNA Labs Due [...] on file Legal Sex Female 2:22 AM KNOCKUP WORKER Gender Identity Female 05/18/2019 7:17 PM KNOCKUP WORKER Sexual Orientation Straight 05/18/2019 7: 17 PM KNOCKUP WORKER documented as of this encounter Miscellaneous Notes * Telephone Encounter - Anusha Rodrigez CNA - 02/13/2025 10:33 AM CDT Lab orders placed & mailed to patient ----- Message from Nurse Shraee Merchant sent at 11/29/2024 8:16 AM CDT [...] disease documented in this encounter Care Teams Inside Technical Sales Representative Relationship Specialty Start Date End Date Odilon Rao MD [address] [place] [address] [address] PCP - General Family Medicine 01/20/25 Odilon Chester MD [address] [facility] [place] [address] Referring Physician Gastroenterology 06/06/23 Roosevelt Thomas MD [address] [facility] [place] [address] Fellow Pulmonary Disease 06/06/23 documented as of this encounter
--- OUTSIDE RECORDS SUMMARY | 2025-02-13 12:01 | XMS_ITS | Encounter Summary ---
Author Organization [employer] Address 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 [address] [email or web address] Cardiac Catheterization Comprehensive Report Patient: Josy Fiore Study ID: [id number] Gender: F : 1960 Age: 47 years Race: 1 Room: Bed: Height: 71 in ( 180.3 cm ) Study Date: January 07, 2008 Patient status: Outpatient Weight: 245.1 lb ( 111.4 kg ) Access. #: [id number] POC: Attending MD: Meet Performing MD: Meet [...] - Right femoral artery access. A 4F [place] Sheath 10cm sheath was advanced into the [...] 15:13:53 Procedure Note Provider, Historical - 01/07/2008 [facility] [address] [place] [address] [email or web address] Cardiac Catheterization Comprehensive Report Patient: Josy Fiore Study ID: [id number] Gender: F : 1960 Age: 47 years Race: 1 Room: Bed: Height: 71 in ( 180.3 cm ) Study Date: January 07, 2008 Patient status: Outpatient Weight: 245.1 lb ( 111.4 kg ) Access. #: [id number] POC: Attending MD: Meet Performing MD: Meet [...] - Right femoral artery access. A 4F [place] Sheath 10cm sheath was advanced into the [...] FLUOROSCOPY ORDERABLES Final Result Performing Organization Address City/State/[facility] Co de Phone Number INTERFACE SYSTEM Refer to clinic/hospital department * PT AND APTT (01/07/2008 1:57 PM CDT) PTT 27.1 24.4 - 36.4 Seconds [facility] Comment: PTT Therapeutic Range: Heparin Level PTT (seconds) <0.10 units/mL <53 0.10 - 0.30 units/mL 53 - 67 0.30 - 0.70 units/mL* 67 - 95* 0.70 - 1.00 units/mL 95 - 116 *corresponds to therapeutic range for unfractionated heparin PROTIME 14.1 12.7 - 15.1 Seconds [facility] INR 1.1 0.9 - 1.1 [facility] Comment: INR Therapeutic Range: Adult: 2.0 - 3.0 for pulmonary embolism or prophylaxis against venous thrombosis or systemic embolization. 2.0 - 3.0 for patients with tissue heart valves. 2.5 - 3.5 for patients with mechanical heart valves or post [place]. Pediatric (12 years and under): 1.5 - [...] Edited INTERFACE SYSTEM Refer to clinic/hospital department [facility] CLIA# [id number] [address] [place] [address] * (ABNORMAL) CBC WITH DIFFERENTIAL (01/07/2008 1:57 PM CDT) RBC 4.01 3.90 - 4.90 M/uL [facility] MCHC 33.4 31.5 - 35.5 % [facility] MCV 91.0 82.0 - 99.0 fL [facility] PLATELETS 210 140 - 350 K/uL [facility] HEMOGLOBIN 12.2 11.8 - 14.8 g/dL [facility] RDW 13.4 11.5 - 14.5 % [facility] WBC 5.4 4.0 - 9.8 K/uL [facility] MCH 30.4 27.2 - 32.6 pg [facility] MPV 11.3 9.3 - 12.4 fL [facility] HEMATOCRIT 36.5 35.5 - 44.0 % [facility] RDW-STDEV 44.0 37.1 - 48.7 fL [facility] NEUTROPHILS 42(L) 45 - 70 % [facility] NEUTROPHIL ABSOLUTE 2.24 1.90 - 7.00 K/uL [facility] EOSINOPHILS 5 0 - 7 % [facility] EOSINOPHIL ABSOLUTE 0.25 0.00 - 0.70 K/uL [facility] LYMPHOCYTES 46(H) 16 - 45 % [facility] LYMPHOCYTE ABSOLUTE 2.48 0.70 - 4.50 K/uL [facility] BASOPHILS 1 0 - 2 % [facility] BASOPHILS ABSOLUTE 0.03 0.00 - 0.20 K/uL [facility] MONOCYTES 7 3 - 13 % [facility] MONOCYTE ABSOLUTE 0.37 0.10 - 1.30 K/uL [facility] Blood specimen (specimen) 01/07/2008 1:57 PM CDT 01/07/2008 2:09 PM CDT Maribel Armenta MD HEMATOLOGY ORDERABLES Edited INTERFACE SYSTEM Refer to clinic/hospital department [facility] CLIA# [id number] [address] [place] [address] * BASIC METABOLIC PANEL (01/07/2008 1:57 PM CDT) BUN 18 6 - 20 mg/dL [facility] CHLORIDE 105 96 - 108 mmol/L [facility] GLUCOSE 90 65 - 99 mg/dL [facility] SODIUM 139 135 - 145 mmol/L [facility] CALCIUM 8.8 8.6 - 10.2 mg/dL [facility] Comment:Note new reference armando vo effective 12/13/07 CO2 27 22 - 30 mmol/L [facility] CREATININE 0.78 0.51 - 0.95 mg/dL [facility] POTASSIUM 4.6 3.5 - 4.9 mmol/L [facility] GFR, >60 >=60 mL/min/1.7 sq meter [facility] GFR >60 >=60 mL/min/1.7 sq meter [facility] Comment: Modification of Diet in Renal Disease (MDRD) study formula. Estimated GFR rate interpretative information for both Americans and non- Americans is available on the [facility] Intranet at: [email or web address] Select: Lab Policies and Procedures Select: Reference Ranges - GFR Blood specimen (specimen) 01/07/2008 1:57 PM CDT 01/07/2008 2:09 PM CDT us Maribel Armenta MD CHEMISTRY ORDERABLES Edited INTERFACE SYSTEM Refer to clinic/hospital department [facility] CLIA# [id number] [address] [place] [address] documented in this encounter Visit Diagnoses Diagnosis Nonspecific abnormal unspecified cardiovascular function study Nonspecific abnormal electrocardiogram (ECG) (EKG) documented in this encounter
--- OUTSIDE RECORDS SUMMARY | 2025-02-13 12:01 | XMS_ITS | Encounter Summary ---
Author Organization [facility] Address [address] [place] [address] Care Team Providers Care Tetryl Screen Operator Name Role Phone Janine Terry MD Primary Care Provider [phone] Adam English DO Unavailable [phone] Janine Terry MD Primary Care Provider Mellissa Rodríguez Primary Care Provider Bj Montaño MD Primary Care Provider Odilon Chester MD Unavailable [phone] Roosevelt Thomas MD Unavailable [phone] Leticia Thorne WORKERS COMPENSATION DEFENSE ATTORNEY Primary Care Provider [phone] Unknown, Notinfile Primary Care Provider Unavail able Odilon Rao MD Primary Care Provider [phone] Encounter Details Date Type Department Care Team (Late st Contact Info) Description 12/26/2019 Telephone [facility] [address] [address] Julia Osborne RN Social History Tobacco Use Types Packs/Day Years Used Date Smoking Tobacco: Never Smokeless Tobacco: Never Alcohol Use Standard Drinks/Week Comments Not Currently 0 (1 standard drink = 0.6 oz pur e alcohol) Comments No Sex and Gender Information Value Date Recorded Sex Assigned at Not on file Legal Sex Female 2:22 AM MACHINIST/MACHINE BUILDER Gender Identity Female 05/18/2019 7:17 PM MACHINIST/MACHINE BUILDER Sexual Orientation Straight 05/18/2019 7: 17 PM MACHINIST/MACHINE BUILDER documented as of this encounter Plan of [...] COVID: Suspected 05/12/2022 05/12/2022 05/12/2022 2:53 PM MACHINIST/MACHINE BUILDER COVID: Suspected 06/22/2022 06/22/2022 06/22/2022 4:37 PM MACHINIST/MACHINE BUILDER COVID19 06/22/2022 06/22/2022 07/02/2022 3:05 AM MACHINIST/MACHINE BUILDER COVID: Recovered Comment:Added based on recent COVID infection. 07/02/2022 07/04/2022 09/30/2022 3:05 AM C DT documented as of this encounter Care Teams Tetryl Screen Operator Relationship Specialty Start Date End Date Janine Terry MD [address] [place] [address] PCP - General Family Medicine 03/06/19 01/19/22 Janine Terry MD [address] [place] [id number] PCP - General 01/20/22 01/20/22 Mellissa Rodríguez PA [address] [place] [address] PCP - General Physician Athletic Agent 01/21/22 04/14/22 Bj Montaño MD [address] [place] [address] PCP - General Family Medicine 04/15/22 02/19/24 Leticia Thorne, WORKERS COMPENSATION DEFENSE ATTORNEY [address] [place] [address] PCP - General Family Medicine 02/20/24 01/08/25 Unknown, Notinfile PCP - General 01/09/25 01/19/25 Odilon Rao MD [address] [place] [address] [address] [facility] [place] [address] PCP - General Family Medicine 01/20/25 Adam English DO [address] [place] [id number] Stevedoring Supervisor Gastroenterology 03/26/19 06/05/23 Odilon Chester MD [address] [facility] [place] [address] Referring Physician Gastroenterology 06/06/23 Roosevelt Thomas MD [address] [facility] [place] [address] Fellow Pulmonary Disease 06/06/23 documented as of this encounter
--- OUTSIDE RECORDS SUMMARY | 2025-02-13 12:01 | XMS_ITS | Encounter Summary ---
Author Organization [facility] Address [address] [place] [address] Phone Care Team Providers Care Core Cutter Name Role Phone Odilon Chester MD Unavailable [phone] Roosevelt Thomas MD Unavailable [phone] Leticia Thorne NP Primary Care Provider [phone] Unknown, Notinfile Primary Care Provider Unavail able Odilon Rao MD Primary Care Provider [phone] Encounter Details Date Type Department Care Team (Late st Contact Info) Description 06/07/2024 Orders Only [facility] Medicine Gastroenterology [address] [facility] 2nd Floor [address] [place] [address] Odilon Chester MD [address] [place], [place] [id number] Gastric polyp (Primary Dx) Social History Tobacco [...] file Legal Sex Female 2:22 AM FACILITY PRACTICE SPECIALIST Gender Identity Female 05/18/2019 7:17 PM FACILITY PRACTICE SPECIALIST Sexual Orientation Straight 05/18/2019 7: 17 PM FACILITY PRACTICE SPECIALIST documented as of this encounter Plan [...] 06/07/2024 documented in this encounter Care Teams Core Cutter Relationship Specialty Start Date End Date Leticia Thorne, BEAR KEEPER [address] [place] [address] PCP - General Family Medicine 02/20/24 01/08/25 Unknown, Notinfile PCP - General 01/09/25 01/19/25 Odilon Rao MD [address] [place] [address] [id number] PCP - General Family Medicine 01/20/25 Odilon Chester MD [address] [facility] [address] [place] [address] Referring Physician Gastroenterology 06/06/23 Roosevelt Thomas MD [address] [facility] [address] DIV [place] [address] Fellow Pulmonary Disease 06/06/23 documented as of this encounter
--- OUTSIDE RECORDS SUMMARY | 2025-02-13 12:01 | XMS_ITS | Clinical Summary ---
Author Organization [facility] Address [address], [facility] [address] [place] [address] Phone Care Team Providers Care Rn Staff Name Role Phone Micky Terry MD Primary Care Provider Adam English DO Unavailable [phone] Allergies Active Allergy Reactions Criticality Noted [...] Recently Relevant to Health Maintenance Care Teams Rn Staff Relationship Specialty Start Date End Date Micky Terry MD [address] [place] [address] PCP - General Family Medicine 01/19/17 Adam English DO [address] [place] [address] Consulting Physician Gastroenterology 01/19/17
--- OUTSIDE RECORDS SUMMARY | 2025-02-13 12:01 | XMS_ITS | Clinical Summary ---
Author Organization [email or web address] [facility] Address [address] [facility] Attn: Epic Prelude ADT LEISA FERREIRA RODRÍGUEZ [address] Care Team Providers Care Job Site Supervisor Name Role Phone Unavailable Primary Care Provider Unavailabl e Social History Tobacco Use Types Packs/Day Years Used Date Smoking Tobacco: Never Assessed Comments Unknown Sex and Gender Information Value Date Recorded Sex Assigned at Not on file Legal Sex Female 5:37 AM COMPENSATION AND BENEFITS ANALYST Gender Identity Not on file Sexual Orientation [...]
--- OUTSIDE RECORDS SUMMARY | 2025-02-13 12:02 | XMS_ITS | Clinical Summary ---
Author Organization [facility] Address [address] [place] [address] Care Team Providers Care Fellmongery Worker Name Role Phone Odilon Chester MD Unavailable Roosevelt Thomas MD Unavailable [phone] Odilon Rao MD Primary Care Provider [phone] Allergies Active Allergy Reactions Criticality Noted Date [...] like a GLP-1 or rezdiffra. Referral to facilities maintenance assistant placed. We discussed the importance of [...] without holes/tears/breaks on dilated exam Return to [facility] in 6 months for DFE OU. Assessment & Plan (12/14/2022 2:16 PM CDT): Symptoms started 6/11/23. Exam reassuring today - PVD without holes/tears/breaks on BUNDLE HELPER 360 Return to [facility] in 3 months for DFE OU. Assessment [...] Tolerated procedure successfully. rtc 1 week at [facility] retina for repeat exam Assessment & [...] (03/27/2019): Added automatically from request for surgery [id number] NAFLD (nonalcoholic fatty liver disease) 019 Resolved Problems Problem Noted Date Diagnosed Date Resolved Date Abnormal CT scan 11/24/2022 06/06/2023 Encounters Date Type Department Care Team Description 02/13/2025 Telephone [facility] Medicine Gastroenterology [address] [facility] 12th [place] [address] [place] [id number] Anusha Rodrigez CNA Labs Due (02/2025) 01/23/2025 8:30 AM CDT Office Visit [facility] Medicine Neuro Sleep [address] [facility] 6th [address] [place] [address] Kanwal Ames DNP DON (obstructive sleep apnea) (Primary Dx); Periodic limb movement disorder (PLMD); Morbid obesity with body mass index (BMI) of 40.0 to 49.9 (HCC) 01/20/2025 10:17 AM CDT - 01/20/2025 11:59 PM CDT Hospital Encounter [facility] [address] [facility] [address] [place] [address] Yaneli Krishna MD Lumbar radiculopathy (Primary Dx); Spinal stenosis of lumbar region without neurogenic claudication Discharge Disposition: Discharge to home or self care 11/29/2024 Results Follow-Up [facility] Medicine Gastroenterology [address] [facility] 12th [place] [address] [place] [address] Betina Gage NP Hepatic function panel 11/28/2024 10:19 AM CDT - 11/28/2024 11:59 PM CDT Hospital Encounter [address] [address] NAFLD (nonalcoholic fatty liver disease) Discharge Disposition: Discharge to home or self care 11/28/2024 10:15 AM CDT Lab [facility] Outpatient Lab at [address] [address] 11/20/2024 Orders Only [facility] [address] [facility] [address] [place] [address] Yaneli Krishna MD Lumbar radiculopathy (Primary Dx) [...] 05/15/1994 - 05/14/1995 Right V-Y flap R gnosticist for BCCa HYSTERECTOMY 05/15/1999 - 05/14/2000 [facility], [...] Father Abram Hickey fatal day f ollowing [facility] Diabetes Maternal Grandmother Nancy Lai Cancer Mother rTang Hickey. Colon Colon cancer Mother Trang Hickey. [...] on file Legal Sex Female 2:22 AM DECORATIVE ENGRAVER APPRENTICE Gender Identity Female 05/18/2019 7:17 PM DECORATIVE ENGRAVER APPRENTICE Sexual Orientation Straight 05/18/2019 7: 17 PM DECORATIVE ENGRAVER APPRENTICE Obstetrics History Last Filed Vital Signs Vital [...] Read Routine (OP Routine) 04/22/2024 9:16 AM DECORATIVE ENGRAVER APPRENTICE Screening mammogram, encounter for HEPATITIS PANEL, ACUTE [...] December. If you do not use a [place] lab, please call [phone] when you complete the lab with the name of the lab so we can obtain results. Please fax results to [phone] call [phone] with any questions. Betina Gage NP LAB BLOOD ORDERABLES [facility] al Result [facility] [address] Department [place] [address] * Screening Mammogram Bilateral W Lalo (04/22/2024 9:16 AM DECORATIVE ENGRAVER APPRENTICE) Anatomical Region Laterality Modality Breast Bilateral Mammography Narrative 04/22/2024 4:59 PM DECORATIVE ENGRAVER APPRENTICE Mammogram Technique: Bilateral Digital Breast Tomosynthesis, Bilateral C-view 2D Screening mammogram. Views obtained: bilateral craniocaudal and bilateral mediolateral oblique. Computer Aided Detection was performed. Mammogram Findings: The present examination has been compared to prior imaging studies performed at [facility] on 04/15/2022, 04/20/2023 and 05/05/2023. There are [...] compared to prior imaging studies performed at [facility] on 04/15/2022, 04/20/2023 and 05/05/2023. There are [...] 19. Hep B core IgM Nonreactive Nonreactive [facility] Comment: Interpretive Data If HepB Core [...] CDT Cathi GERONIMO LAB MICROBIOLOGY - GENE [facility] ORDERABLES Final Result [facility] [address] Department [place] [address] * COLONOSCOPY (01/04/2023 12:55 PM CDT) Anatomical Region Laterality Modality Other Narrative Procedure Note Odilon Chester MD - 01/04/2023 12:55 PM CDT ENDOSCOPY LAB Patient Name: Josy Fiore Procedure Date: 01/04/2023 12:55 PM Date of : 1960 Admit Type: Outpatient Age: 62 Gender: Female Attending MD: Odilon Chester M.D. Room: [facility] ENDOSCOPY ROOM 03 Note Status: Finalized [...] The scope was passed under direct vision.The [id number] was introduced through the anusand advanced to [...] During normal business hours - Please call [facility] Coordinator: [phone] After hours, evening, nights, weekends and holidays- Please call the hospital safety grooving machine operator at and ask for the GI fellow operations and maintenance technican. 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
[2025-02-13 12:24] LABS: Hematocrit 42.5 % (37.0-47.0); Hemoglobin 14.3 g/dL (12.0-15.0); Immature Granulocyte Percent A 0.4 % (0-0.5); Lymphocytes Absolute Auto 1.89 K/mm3 (0.9-3.2); Mean Corpuscular HGB Conc 33.6 g/dl (32-36); Mean Corpuscular Hemoglobin 30.3 pg (26-34); Mean Corpuscular Volume 90.0 fl (80-100); Nucleated Red Blood Cells Absolute Auto 0.000 K/mm3 (0.0-0.012); Nucleated Red Blood Cells Perc 0.0 % (0.0-0.2); Platelet Count Result 251 k/mm3 (150-375); Red Blood Count 4.72 M/mm3 (4.2-5.4); White Blood Count 6.7 K/mm3 (4.5-10.0)
[2025-02-13 12:43] LABS: Alanine Aminotransferase 36 U/L (6-35); Albumin Level 4.4 g/dL (3.5-5.1); Alkaline Phosphatase 60 U/L (38-126); Anion Gap 9 mmol/L (4-12); Aspartate Amino Transferase 43 U/L (14-36); Bilirubin,Total 1.1 mg/dL (0.2-1.3); Blood Urea Nitrogen 20 mg/dL (7-17); Calcium 9.4 mg/dL (8.4-10.2); Carbon Dioxide 28 mmol/L (22-30); Chloride 99 mmol/L (98-107); Estimated CRCL calculation 77 ml/min; Estimated Glomerular Filt Rate > 60; Glucose 104 mg/dL (65-110); Lipase 35 U/L (23-300); Potassium 3.5 mmol/L (3.4-5.0); Sodium 136 mmol/L (137-145); Total Protein 8.1 g/dL (6.3-8.2)
--- NOTE | 2025-02-13 13:34 | ED.GENADULT ---
HPI - General Adult General Chief complaint: Abdominal Pain Stated complaint: abdominal pain Time Seen by Provider: 02/13/25 11:37 History of Present Illness HPI narrative: This is a 65-year-old female presenting with left lower quadrant pain. Patient has history of diverticulosis and diverticulitis that has been treated with colectomy in the past. On her last colonoscopy in December of last year she was told that she was developing new diverticuli. Patient has been having left lower quadrant abdominal pain that she describes as ?nipping.?Is been ongoing for 5 days. Her bowel movements have been small in caliber. She has the urge to defecate but cannot typically go. She has not had any fevers nausea or vomiting. She is still passing gas. Related Data Home Medications ?Medication ?Instructions ?Recorded ?Confirmed ?Last Taken ?Type cholecalciferol (vitamin D3) 100 2,000 unit PO DAILY 07/23/19 10/29/24 Unknown History mcg (4,000 unit) capsule oxygen-air delivery systems 10/25/23 10/29/24 Unknown History omeprazole 20 mg capsule,delayed 20 mg PO DAILY 04/05/24 10/29/24 Unknown History release soy isoflavone-black cohosh cap PO 04/05/24 10/29/24 Unknown History root-magnolia bark 155 mg capsule (Estroven) calcium 333 mg-vit D3 200 1 tablet PO DAILY 04/29/24 10/29/24 Unknown History unit-magnesium 133 mg-zinc 5 mg tablet dicyclomine 20 mg tablet mg PO 04/29/24 10/29/24 Unknown History duloxetine 30 mg capsule,delayed 30 mg PO DAILY 10/29/24 10/29/24 Unknown History release (Cymbalta) methocarbamol 500 mg tablet 500 mg PO TID 10/29/24 10/29/24 Unknown History pregabalin 50 mg capsule (Lyrica) 50 mg PO TID 10/29/24 10/29/24 Unknown History Allergies Allergy/AdvReac Type Severity Reaction Status Date / Time enoxaparin (From Lovenox) Allergy Severe HIVES Verified 02/13/25 11:44 Penicillins Allergy Unknown Skin Verified 02/13/25 11:44 Reaction droperidol AdvReac Unknown Other Verified 02/13/25 11:44 [facility] Past Medical History Medical History Vitreous detachment COVID (~06/22/22) Teratoma of ovary Surgical History Surgical History S/P laparoscopic colectomy History of sinus surgery H/O: hysterectomy Hx of tonsillectomy Hx of adenoidectomy History of cardiac catheterization H/O basal cell carcinoma excision Hx of cholecystectomy Family History Family History Grandparent Diabetes mellitus Mother Hypertension Family history of cardiovascular disease Carcinoma of colon, Onset Age: 63 Family history of lung cancer, Onset Age: 63 Family history of malignant neoplasm of brain, Onset Age: 63 Father Family history of cardiovascular disease, Onset Age: 77 Family history of kidney disease Other Cerebrovascular accident Family history of mental disorder Social History Social History Social History: Caffeine-rarely Smoking status: Never smoker Alcohol intake: never Substance use: never Lack of Transportation: No Lack of Food: Never True Current Housing: I Have Housing Concerned About Future Housing: No Difficulty Paying Gas/Electric Bills: No Difficulty Paying for Meds: No Currently Unemployed: No Education: Associate Degree Difficulty w/ Childcare or Family Care: No Exam Narrative: APPEARANCE: No apparent distress. Head: atraumatic. EYES: EOMI, NOSE: Atraumatic NECK: Trachea midline RESPIRATORY: No increased rate of breathing clear to auscultation CARDIOVASCULAR: RRR, no peripheral edema ABDOMINAL: Exam limited by obesity, mild tenderness left lower quadrant no guarding/rebound MUSCULOSKELETAl: No obvious deformities NEURO: Alert. Moving 4/4 extremities SKIN:: Warm, dry. Normal color PSYCHIATRIC: Normal affect Course Vital Signs Vital signs: Vital Signs Temperature 97.8 F 02/13/25 11:39 Pulse Rate 95 02/13/25 11:39 Respiratory Rate 18 02/13/25 11:39 Blood Pressure 149/87 H 02/13/25 11:39 Pulse Oximetry 100 02/13/25 11:39 Oxygen Delivery Room Air 02/13/25 11:39 Temperature 97.8 F 02/13/25 11:39 Pulse Rate 95 02/13/25 11:39 Respiratory Rate 18 02/13/25 11:39 Blood Pressure 149/87 H 02/13/25 11:39 Pulse Oximetry 100 02/13/25 11:39 Oxygen Delivery Room Air 02/13/25 11:39 Medical Decision Making [facility] Narrative Medical decision making narrative: -Course: 65-year-old female presenting with left lower quadrant pain x5 days. History of diverticulitis. She says this feels similar to previous episodes. She does have some mild tenderness on exam although physical exam is severely limited by obesity. CT abdomen pelvis obtained which was unremarkable. Her vital signs are stable. Her laboratory studies are within normal limits. Patient was informed of the results. Instructed follow-up with her primary care physician or GI doctor for further management. Given return precautions for severe pain, inability to have a bowel movement, inability to pass flatus, or fevers. -DDX includes but is not limited to: Diverticulitis, colitis, small-bowel obstruction Vital Signs Vital Signs: Vital Signs Temperature 97.8 F 02/13/25 11:39 Pulse Rate 95 02/13/25 11:39 Respiratory Rate 18 02/13/25 11:39 Blood Pressure 149/87 H 02/13/25 11:39 Pulse Oximetry 100 02/13/25 11:39 Oxygen Delivery Room Air 02/13/25 11:39 Temperature 97.8 F 02/13/25 11:39 Pulse Rate 95 02/13/25 11:39 Respiratory Rate 18 02/13/25 11:39 Blood Pressure 149/87 H 02/13/25 11:39 Pulse Oximetry 100 02/13/25 11:39 Oxygen Delivery Room Air 02/13/25 11:39 Lab Data 02/13/25 12:11 02/13/25 12:11 Labs: Lab Results 02/13/25 Range/Units 12:11 WBC 6.7 (4.5-10.0) K/mm3 RBC 4.72 (4.2-5.4) M/mm3 Hgb 14.3 (12.0-15.0) g/dL Hct 42.5 (37.0-47.0) % MCV 90.0 (80-100) fl MCH 30.3 (26-34) pg MCHC 33.6 (32-36) g/dl RDW 13.1 (11.5-14.5) % Plt Count 251 (150-375) k/mm3 MPV 10.9 H (7.4-10.4) fl Immature Gran % (Auto) 0.4 (0-0.5) % Neut % (Auto) 63.8 (45.5-73.1) % Lymph % (Auto) 28.1 (18.3-44.2) % [place] % (Auto) 6.1 (2.6-8.5) % Eos % (Auto) 1.0 (0-4.4) % Baso % (Auto) 0.6 (0.2-1.2) % Lymph # (Auto) 1.89 (0.9-3.2) K/mm3 [place] # (Auto) 0.4 (0.1-0.6) K/mm3 Eos # (Auto) 0.1 (0-0.3) K/mm3 Baso # (Auto) 0.0 (0.0-0.1) K/mm3 Abs Immat Gran (auto) 0.03 (0.00-0.031) K/mm3 Absolute Neuts (auto) 4.3 (1.3-6.7) K/mm3 Absolute Nucleated RBC 0.000 (0.0-0.012) K/mm3 Nucleated RBC % 0.0 (0.0-0.2) % Sodium 136 L (137-145) mmol/L Potassium 3.5 (3.4-5.0) mmol/L Chloride 99 (98-107) mmol/L Carbon Dioxide 28 (22-30) mmol/L Anion Gap 9 (4-12) mmol/L BUN 20 H (7-17) mg/dL Creatinine 0.91 (0.7-1.0) mg/dL Estim Creat Clear Calc 77 ml/min Estimated GFR > 60 (59 - ) Glucose 104 (65-110) mg/dL Calcium 9.4 (8.4-10.2) mg/dL Total Bilirubin 1.1 (0.2-1.3) mg/dL AST 43 H (14-36) U/L ALT 36 H (6-35) U/L Alkaline Phosphatase 60 (38-126) U/L Total Protein 8.1 (6.3-8.2) g/dL Albumin 4.4 (3.5-5.1) g/dL Lipase 35 (23-300) U/L Discharge Plan Discharge Clinical Impression: Abdominal pain Patient Disposition: Home Condition: Stable Instructions: Antibiotic Form, Abdominal Pain (ED) Additional Instructions: You were seen in the emergency department for abdominal pain. Her CT abdomen pelvis did not show any signs of diverticulitis. Please follow-up with your primary care physician for further management. If you develop severe abdominal pain, inability bowel movement or fevers please return to the ED for re-evaluation. Patient Language: Japanese Prescriptions: No Action cholecalciferol (vitamin D3) 4,000 unit capsule 2,000 unit PO DAILY (DME) oxygen-air delivery systems Device See Rx Instructions .Route Rx Instructions: As directed dicyclomine 20 mg tablet PO calcium carb-D3-mag [id number] 333 mg-200 unit -133 mg-5 mg tablet 1 tablet PO DAILY Rx Instructions: administer with a meal vitamin E (dl, acetate) 450 mg (1,000 unit) capsule 1,800 mg PO DAILY Qty: 30 0RF alprazolam 0.25 mg tablet 0.25 mg PO TID PRN (Reason: anxiety) Qty: 30 3RF omeprazole 20 mg capsule,delayed release(DR/EC) 20 mg PO DAILY Estroven 155 mg capsule PO pregabalin [Lyrica] 50 mg capsule 50 mg PO TID methocarbamol 500 mg tablet 500 mg PO TID duloxetine [Cymbalta] 30 mg capsule,delayed release(DR/EC) 30 mg PO DAILY sumatriptan succinate 100 mg tablet See Rx Instructions .ROUTE .COMPLEX Qty: 14 2RF Dose Instruction: TAKE ONE TABLET BY MOUTH ONCE NEEDED FOR MIGRAINE HEADACHE Rx Instructions: TAKE ONE TABLET BY MOUTH ONCE NEEDED FOR MIGRAINE HEADACHE azelaic acid 15 % gel 1 applic topical BID Qty: 50 2RF losartan-hydrochlorothiazide 50-12.5 mg tablet See Rx Instructions .ROUTE .COMPLEX Qty: 90 1RF Dose Instruction: TAKE ONE TABLET BY MOUTH EVERY DAY Rx Instructions: TAKE ONE TABLET BY MOUTH EVERY DAY hydrochlorothiazide 12.5 mg tablet 12.5 mg PO DAILY PRN (Reason: edema) Qty: 30 5RF meloxicam 7.5 mg tablet See Rx Instructions .ROUTE .COMPLEX Qty: 30 5RF Dose Instruction: TAKE 1 TABLET BY MOUTH DAILY Rx Instructions: TAKE 1 TABLET BY MOUTH DAILY Follow-up/Referrals: Leticia Thorne, [employer] [Primary Care Provider, Family Practice] - 2 Days
== END 2025-02-13 14:34 | disposition home or self-care (01) ==
PROVIDERS: Emergency Provider Emergency Medicine; PCP Nurse Practitioner Family
DX: R10.32 Left lower quadrant pain (principal); Z86.16 Personal history of COVID-19; Z90.49 Acquired absence of other specified parts of digestive tract; Z90.710 Acquired absence of both cervix and uterus; Z85.828 Personal history of other malignant neoplasm of skin
CPT/HCPCS: 36415; 74177; 80053; 83690; 85025; 99284; Q9967